=== PATIENT | male | born 1950 | race Caucasian/White ===

== ENCOUNTER → 2020-04-26 13:07 | Outpatient (BNVA) | payer MEDICARE, MEDICAID, SELFPAY | PROVIDERS: PCP Internal Medicine; Visit Provider Internal Medicine | DX: I26.99 Other pulmonary embolism without acute cor pulmonale (principal); Z51.81 Encounter for therapeutic drug level monitoring; Z79.01 Long term (current) use of anticoagulants | CPT/HCPCS: Q3014 ==

== ENCOUNTER → 2020-05-17 15:03 | Outpatient (BNVA) | payer MEDICARE, MEDICAID, SELFPAY | PROVIDERS: PCP Internal Medicine; Visit Provider Internal Medicine | DX: I26.99 Other pulmonary embolism without acute cor pulmonale (principal); Z51.81 Encounter for therapeutic drug level monitoring; Z79.01 Long term (current) use of anticoagulants | CPT/HCPCS: Q3014 ==

== ENCOUNTER → 2020-05-24 15:34 | Outpatient (BNVA) | payer MEDICARE, MEDICAID, SELFPAY | PROVIDERS: PCP Internal Medicine; Visit Provider Internal Medicine | DX: Z76.89 Persons encountering health services in other specified circumstances (principal) ==

== ENCOUNTER → 2020-05-31 12:12 | Outpatient (BNVA) | payer MEDICARE, MEDICAID, SELFPAY | PROVIDERS: PCP Internal Medicine; Visit Provider Internal Medicine | DX: I26.99 Other pulmonary embolism without acute cor pulmonale (principal); Z51.81 Encounter for therapeutic drug level monitoring; Z79.01 Long term (current) use of anticoagulants | CPT/HCPCS: Q3014 ==

== ENCOUNTER 2020-05-31 14:52 | Outpatient (REF) | payer MEDICARE, MEDICAID, SELFPAY ==
[2020-05-31 14:56] LABS: MANUAL DIFF FLAG NO
[2020-05-31 15:11] LABS: Basophils Percent Auto 0.2 % (0-2); Eosinophils Absolute Auto 0.1 X10*3/uL (0.0-0.4); Eosinophils Percent Auto 0.5 % (0-4); Hematocrit 45.4 % (42-52); Hemoglobin 14.6 g/dl (14.0-18.0); Imm Gran Abs Auto 0.14 X10*3/uL (0.00-0.03); Lymphocytes Absolute Auto 1.7 X10*3/uL (1.2-4.9); Lymphocytes Percent Auto 11.5 % (20-40); Mean Corpuscular HGB Conc 32.2 g/dl (31.0-36.0); Mean Corpuscular Hemoglobin 31.4 pg (27.0-33.0); Mean Corpuscular Volume 97.6 fL (80-98); Mean Platelet Volume 11.2 fL (9.4-12.4); Monocytes Absolute Auto 0.6 X10*3/uL (0.1-1.2); Monocytes Percent Auto 4.2 % (2-11); Neutrophils Absolute Auto 12.1 X10*3/uL (2.0-8.3); Neutrophils Percent Auto 82.6 % (45-73); Platelet Count 241 X10*3/uL (160-400); Red Blood Count 4.65 X10*6/uL (4.60-5.80); Red Cell Distribution Width 13.9 % (11.0-16.0); White Blood Count 14.7 X10*3/uL (4.8-10.8)
[2020-05-31 15:35] LABS: Alanine Aminotransferase 36 U/L (0-40); Albumin Level 3.8 g/dL (3.5-5.0); Alkaline Phosphatase 62 U/L (39-117); Aspartate Amino Transferase 29 U/L (5-37); Bilirubin Direct 0.2 mg/dL (0.0-0.5); Bilirubin Total 0.5 mg/dL (0.0-1.0); C Reactive Protein 0.03 mg/dL (< or = 0.50); Total Protein 6.7 g/dL (6.5-8.0)
[2020-05-31 16:15] LABS: Erythrocyte Sedimentation Rate 5 MM/HR (0-15)
== END 2020-05-31 14:53 | disposition home or self-care (01) ==
LOC: HO.LNP 14:52
PROVIDERS: Visit Provider Hospitalist
DX: B02.9 Zoster without complications (principal)
CPT/HCPCS: 36415; 80076; 85025; 85652; 86140

== ENCOUNTER → 2020-06-07 14:17 | Outpatient (BNVA) | payer MEDICARE, MEDICAID, SELFPAY | PROVIDERS: PCP Internal Medicine; Visit Provider Internal Medicine | DX: I26.99 Other pulmonary embolism without acute cor pulmonale (principal); Z51.81 Encounter for therapeutic drug level monitoring; Z79.01 Long term (current) use of anticoagulants | CPT/HCPCS: Q3014 ==

== ENCOUNTER → 2020-06-12 14:51 | Outpatient (BNVA) | payer MEDICARE, MEDICAID, SELFPAY | PROVIDERS: PCP Internal Medicine; Referring Provider Internal Medicine; Visit Provider Internal Medicine | DX: I26.99 Other pulmonary embolism without acute cor pulmonale (principal); Z51.81 Encounter for therapeutic drug level monitoring; Z79.01 Long term (current) use of anticoagulants | CPT/HCPCS: Q3014 ==

== ENCOUNTER → 2020-06-19 11:59 | Outpatient (BNVA) | payer MEDICARE, MEDICAID, SELFPAY | PROVIDERS: PCP Internal Medicine; Visit Provider Internal Medicine | DX: I26.99 Other pulmonary embolism without acute cor pulmonale (principal); Z51.81 Encounter for therapeutic drug level monitoring; Z79.01 Long term (current) use of anticoagulants | CPT/HCPCS: Q3014 ==

== ENCOUNTER → 2020-06-25 16:08 | Outpatient (BNVA) | payer MEDICARE, MEDICAID, SELFPAY | PROVIDERS: PCP Internal Medicine; Visit Provider Internal Medicine | DX: Z76.89 Persons encountering health services in other specified circumstances (principal) ==

== ENCOUNTER → 2020-07-02 12:11 | Outpatient (BNVA) | payer MEDICARE, MEDICAID, SELFPAY | PROVIDERS: PCP Internal Medicine; Visit Provider Internal Medicine | DX: I26.99 Other pulmonary embolism without acute cor pulmonale (principal); Z51.81 Encounter for therapeutic drug level monitoring; Z79.01 Long term (current) use of anticoagulants | CPT/HCPCS: Q3014 ==

== ENCOUNTER → 2020-07-16 15:58 | Outpatient (BNVA) | payer MEDICARE, MEDICAID, SELFPAY | PROVIDERS: PCP Internal Medicine; Visit Provider Internal Medicine | DX: I26.99 Other pulmonary embolism without acute cor pulmonale (principal); Z51.81 Encounter for therapeutic drug level monitoring; Z79.01 Long term (current) use of anticoagulants | CPT/HCPCS: Q3014 ==

== ENCOUNTER → 2020-07-25 12:01 | Outpatient (BNVA) | payer MEDICARE, MEDICAID, SELFPAY | PROVIDERS: PCP Internal Medicine; Visit Provider Internal Medicine | DX: I26.99 Other pulmonary embolism without acute cor pulmonale (principal); Z79.01 Long term (current) use of anticoagulants; Z51.81 Encounter for therapeutic drug level monitoring | CPT/HCPCS: Q3014 ==

== ENCOUNTER → 2020-07-30 14:55 | Outpatient (REF) | payer MEDICARE, MEDICAID, SELFPAY ==
--- NOTE | 2020-07-30 15:00 | CA_ITS ---
Transthoracic Echocardiogram Patient (Last, First, Middle): Misbah Iverson M Gender: Male Date of : 1950 Age: 69 Procedure Date: 07/30/2020 Procedure Type: Transthoracic Echocardiogram Location: OP Height: 180.34 cm Weight: 163.3 kg BSA: 2.71 m2 Heart Rate: bpm BP: 130 / 58 mmHg Professor Of Musicology: ANNIE Referring MD: Khris Lewis MD Master Sheet Clerk: Khris Lewis MD Symptoms: I48.0 PAF Study Quality: Technically Difficult ECG Rhythm: Undetermined Conclusions: - 1. Technically difficult study due to body habitus 2. Moderately reduced LV systolic function on limited views 3. At least moderately dilated left atrium 4. Limited evaluation and visualization of cardiac valves with normal cardiac valvular Doppler 5. Moderately dilated ascending aorta Findings Left Ventricle The left ventricle was not well visualized. The visually estimated ejection fraction is between 35-40%. Regional wall motion abnormalities can not be excluded due to suboptimal endocardial definition. Diastolic function is indeterminate on the basis of available data. Right Ventricle The right ventricle was not well visualized. Atria The left atrium is moderately dilated. Interatrial shunt cannot be excluded. The right atrium was not well visualized. Aortic Valve The aortic valve was not well visualized. There is no aortic valve stenosis. There is no aortic valve regurgitation. Mitral Valve The mitral valve was not well visualized. There is mild mitral annular calcification. There is trace mitral valve regurgitation. There is no mitral valve stenosis. Pulmonic Valve The pulmonic valve was not well visualized. Tricuspid Valve The tricuspid valve was not well visualized. Tricuspid regurgitation envelope is inadequate for calculation of right ventricular systolic pressure. Great Vessels The pulmonary artery was not well visualized. There is moderate dilatation of the ascending aorta measuring 4.40 cm. Venous The inferior vena cava was not well visualized. Pericardium/Pleural The pericardium was not well visualized. Prior Study Comparison Changes noted compared to prior study dated: 06/27/2019. LV systolic function has reduced Measurements 2D Linear Measurements Ao Root: 3.50 2.1-3.5 cm LVOT Diam: 2.40 3.0+(-)1.3 cm 2D Systolic Function EF 4C: 30.70 >55% EF 2C: 39.50 >55% EF BiP: 36.40 >55% Aortic Valve AoV Pk Tiburcio: 1.25 AoV Mn Tiburcio: 0.87 AoV VTI: 0.23 AoV Pk Grad: 6.00 Aov Mn Grad: 3.00 RAMONA Cont.VTI: 3.35 LVOT LVOT Pk Tiburcio: 0.82 LVOT Mn Tiburcio: 0.50 LVOT VTI: 0.17 LVOT Pk Grad: 3.00 LVOT Mn Grad: 1.00 LVOT Diam: 2.40 LVOT Area: 4.52 Great Vessels Aorta Ao Root-2D: 3.50 2.0-3.7 cm Ao Asc: 4.40 2.1-3.4 cm Updated in Other Vendor System with Status of Final Khris Lewis MD electronically signed on 07/31/2020 1:22:51 PM with status of Final
== END ==
LOC: HO.CARD 14:55
PROVIDERS: PCP Internal Medicine; Visit Provider Internal Medicine Cardiovascular Disease
DX: I48.0 Paroxysmal atrial fibrillation (principal)
CPT/HCPCS: 93306

== ENCOUNTER → 2020-08-01 12:02 | Outpatient (BNVA) | payer MEDICARE, MEDICAID, SELFPAY | PROVIDERS: PCP Internal Medicine; Visit Provider Internal Medicine | DX: I26.99 Other pulmonary embolism without acute cor pulmonale (principal); Z51.81 Encounter for therapeutic drug level monitoring; Z79.01 Long term (current) use of anticoagulants | CPT/HCPCS: Q3014 ==

== ENCOUNTER → 2020-08-08 12:04 | Outpatient (BNVA) | payer MEDICARE, MEDICAID, SELFPAY | PROVIDERS: PCP Internal Medicine; Visit Provider Internal Medicine | DX: I26.99 Other pulmonary embolism without acute cor pulmonale (principal); Z51.81 Encounter for therapeutic drug level monitoring; Z79.01 Long term (current) use of anticoagulants | CPT/HCPCS: Q3014 ==

== ENCOUNTER → 2020-08-13 14:15 | Outpatient (BNVA) | payer MEDICARE, MEDICAID, SELFPAY | PROVIDERS: PCP Internal Medicine; Visit Provider Internal Medicine Cardiovascular Disease | DX: R06.02 Shortness of breath (principal); I42.9 Cardiomyopathy, unspecified; I48.19 Other persistent atrial fibrillation; E66.01 Morbid (severe) obesity due to excess calories | CPT/HCPCS: 93005; 99212 ==

== ENCOUNTER → 2020-08-15 12:02 | Outpatient (BNVA) | payer MEDICARE, MEDICAID, SELFPAY | PROVIDERS: PCP Internal Medicine; Visit Provider Internal Medicine | DX: I26.99 Other pulmonary embolism without acute cor pulmonale (principal); Z51.81 Encounter for therapeutic drug level monitoring; Z79.01 Long term (current) use of anticoagulants | CPT/HCPCS: Q3014 ==

== ENCOUNTER → 2020-08-22 11:02 | Outpatient (BNVA) | payer MEDICARE, MEDICAID, SELFPAY | PROVIDERS: PCP Internal Medicine; Visit Provider Internal Medicine | DX: I26.99 Other pulmonary embolism without acute cor pulmonale (principal); Z51.81 Encounter for therapeutic drug level monitoring; Z79.01 Long term (current) use of anticoagulants | CPT/HCPCS: Q3014 ==

== ENCOUNTER 2020-08-23 10:30 | Day surgery (SDC) | payer MEDICARE, MEDICAID, SELFPAY ==
--- NOTE | 2020-08-21 15:05 | HO.ANESPROP2 ---
Documented by User: Criss Lauren 08/21/20 15:14 HPI - Anesthesia Eval Consult details Narrative: 70yo M for Cardioversion PMFSH Past Medical History Medical History (Updated 08/21/20 @ 15:11 by Criss Lauren) CAD (coronary artery disease) Cardiomyopathy COPD (chronic obstructive pulmonary disease) Current use of anticoagulant therapy Diabetes HLD (hyperlipidemia) HTN (hypertension) Morbid obesity Obstructive sleep apnea Persistent atrial fibrillation Family History Family History Father HTN (hypertension) Diabetes mellitus Cardiac disease Bone cancer Mother HTN (hypertension) Lung cancer Surgical History Surgical History History of ankle surgery History of knee surgery Social History Social History Alcohol intake: never Smoking Status: Former smoker Use of substances other than those prescribed or required for medical reasons: No Advance Directives: No Advance Directives Information Provided: Yes Meds Allergies Allergy/AdvReac Type Severity Reaction Status Date / Time iodine [IODINE] Allergy Unknown HIVES, Verified 07/25/20 12:02 bloating latex [LATEX] Allergy Unknown HIVES Verified 07/25/20 12:02 shellfish Allergy Unknown anaphylaxis Verified 07/25/20 12:02 shellfish derived Allergy Unknown ANAPHYLAXIS Verified 07/25/20 12:02 [SHELLFISH DERIVED] Home Medications Medication Instructions Recorded Confirmed Type warfarin 4 mg tablet 4 mg PO DAILY 04/26/20 08/22/20 History amiodarone 200 mg tablet 200 mg PO DAILY 06/11/20 08/22/20 History atorvastatin 10 mg tablet 10 mg PO DAILY 06/11/20 08/22/20 History carvedilol 12.5 mg tablet 12.5 mg PO BID 06/11/20 08/22/20 History glipizide 5 mg tablet 2.5 mg PO DAILY tab 08/13/20 08/22/20 History lorazepam 0.5 mg tablet 1 mg PO DAILY PRN tab 08/13/20 08/22/20 History sertraline 25 mg tablet 100 mg PO DAILY tab 08/13/20 08/22/20 History glipizide 2.5 mg tablet, extended 2.5 mg PO DAILY 08/15/20 08/22/20 History release 24 hr lorazepam 1 mg tablet 1 mg PO BID PRN 08/15/20 08/22/20 History sertraline 100 mg tablet 100 mg PO DAILY 08/15/20 08/22/20 History Big [place] 3 Fish Oil 08/23/20 History acetaminophen 650 mg PO PRN 08/23/20 History multivitamin 08/23/20 History Exam Exam Date and Time: August 21, 2020 1505 Pertinent Lab Results Pertinent Lab Results: Laboratory Tests 02/23/20 05/31/20 06:24 13:00 WBC 14.7 H Hgb 14.6 Hct 45.4 Plt Count 241 Sodium 136 Potassium 3.8 D Chloride 105 BUN 18 H Creatinine 0.85 Narrative Narrative: Echo 07/30/20 Conclusions: - 1. Technically difficult study due to body habitus 2. Moderately reduced LV systolic function on limited views, EF 35-40% 3. At least moderately dilated left atrium 4. Limited evaluation and visualization of cardiac valves with normal cardiac valvular Doppler 5. Moderately dilated ascending aorta EKG afib @ 83 low volt QRS ? septal infarct Assessment and Plan Assessment Anesthesia Assessment: Chart Reviewed Documented by User: An Rivera 08/23/20 11:16 [facility] Past Medical History Medical History (Updated 08/21/20 @ 15:11 by Criss Lauern) CAD (coronary artery disease) Cardiomyopathy COPD (chronic obstructive pulmonary disease) Current use of anticoagulant therapy Diabetes HLD (hyperlipidemia) HTN (hypertension) Morbid obesity Obstructive sleep apnea Persistent atrial fibrillation Family History Family History Father HTN (hypertension) Diabetes mellitus Cardiac disease Bone cancer Mother HTN (hypertension) Lung cancer Surgical History Surgical History History of ankle surgery History of knee surgery Social History Social History Alcohol intake: never Smoking Status: Former smoker Use of substances other than those prescribed or required for medical reasons: No Advance Directives: No Advance Directives Information Provided: Yes Meds Allergies Allergy/AdvReac Type Severity Reaction Status Date / Time iodine [IODINE] Allergy Unknown HIVES, Verified 07/25/20 12:02 bloating latex [LATEX] Allergy Unknown HIVES Verified 07/25/20 12:02 shellfish Allergy Unknown anaphylaxis Verified 07/25/20 12:02 shellfish derived Allergy Unknown ANAPHYLAXIS Verified 07/25/20 12:02 [SHELLFISH DERIVED] Home Medications Medication Instructions Recorded Confirmed Type warfarin 4 mg tablet 4 mg PO DAILY 04/26/20 08/22/20 History amiodarone 200 mg tablet 200 mg PO DAILY 06/11/20 08/22/20 History atorvastatin 10 mg tablet 10 mg PO DAILY 06/11/20 08/22/20 History carvedilol 12.5 mg tablet 12.5 mg PO BID 06/11/20 08/22/20 History glipizide 5 mg tablet 2.5 mg PO DAILY tab 08/13/20 08/22/20 History lorazepam 0.5 mg tablet 1 mg PO DAILY PRN tab 08/13/20 08/22/20 History sertraline 25 mg tablet 100 mg PO DAILY tab 08/13/20 08/22/20 History glipizide 2.5 mg tablet, extended 2.5 mg PO DAILY 08/15/20 08/22/20 History release 24 hr lorazepam 1 mg tablet 1 mg PO BID PRN 08/15/20 08/22/20 History sertraline 100 mg tablet 100 mg PO DAILY 08/15/20 08/22/20 History Big Bar 3 Fish Oil 08/23/20 History acetaminophen 650 mg PO PRN 08/23/20 History multivitamin 08/23/20 History Exam Airway Mallampati Class: IV TM Dist: >3cm Neck ROM: Full Heart: irreg Lungs: CtA BL Assessment and Plan Assessment Anesthesia Assessment: Anesthesia Plan Discussed and Chart Reviewed Final Anesthetic Review NPO: Yes (Sip med with meds) ASA Class: III Final Preanesthetic Review: Meds/Allgs Chart Reviewed and Consent Obtained/Reviewed Patient Risk: Intermediate Procedure Risk: Intermediate Anesthetic Plan Anesthetic Plan: MAC: Disposition: Standard PACU
[2020-08-23] VITALS (7 sets, daily range): BP systolic 99–116; BP diastolic 63–79; PULSE 70–87; RESP 16–22; TEMP 36.4–37.3; O2SAT 96–99; BMI 50.2
--- NOTE | 2020-08-23 | ECG_ITS ---
Test Reason : POST CARDIOVERSION Blood Pressure : / mmHG Vent. Rate : 078 BPM Atrial Rate : 153 BPM P-R Int : 000 ms QRS Dur : 100 ms QT Int : 440 ms P-R-T Axes : 000 -35 027 degrees QTc Int : 501 ms Atrial fibrillation Left axis deviation Prolonged QT Abnormal ECG When compared with ECG of 22-FEB-2020 22:52, Atrial fibrillation has replaced Sinus rhythm QT has lengthened Referred By: Lelo Rincon Electronically Signed By:LELO RINCON
[2020-08-23 11:06] LABS: Glucose, Whole Blood 134 mg/dL (60-115)
[2020-08-23 11:15] LABS: INTERNATIONAL NORM RATIO 1.8 (0.9-1.1); Prothrombin Time 21.3 SEC (10.8-13.0)
--- NOTE | 2020-08-23 11:35 | PC.NURSE ---
JULIO RINCON AND TOLD HIM THE PT/INR RESULTS INR1.8 AND PT 21.3 MD WOULD LIKE TO HAVE LOVENOX GIVEN PRIOR TO HIS PROCEDURE. PATIENT ALSO STATED HE TAKES HIS COUMADIN REGULARLY AND TOOK HIS DOSE LAST NIGHT.
[2020-08-23] MEDS: Lactated Ringers 1,000 ML 100 ML IVCONT (11:40)
[2020-08-23] MEDS: Enoxaparin Sodium 150 MG/ML SYRINGE SUBCUT (11:48)
--- NOTE | 2020-08-23 12:10 | MHC.SHP ---
Pre-Procedural Eval Section B Chief Complaint: a-fib Allergies: Allergies Allergy/AdvReac Type Severity Reaction Status Date / Time iodine [IODINE] Allergy Unknown HIVES, Verified 07/25/20 12:02 bloating latex [LATEX] Allergy Unknown HIVES Verified 07/25/20 12:02 shellfish Allergy Unknown anaphylaxis Verified 07/25/20 12:02 shellfish derived Allergy Unknown ANAPHYLAXIS Verified 07/25/20 12:02 [SHELLFISH DERIVED] Plan I have reviewed the history and physical and performed a pertinent physical examination on my patient. No changes have occurred unless specified.
--- NOTE | 2020-08-23 13:03 | P.PNCAR_ITS ---
Cardioversion Procedure Note Cardioversion Date of Procedure: 08/23/2020. Ordering Provider: Dr. Lewis Performing Provider: Dr. Zayas Indication for Procedure: Atrial fibrillation/cardiomyopathy Pre-Op Diagnosis: Atrial fibrillation Post-Op Diagnosis: Atrial fibrillation Performed with Transesophageal Echo: No History: Atrial fibrillation/cardiomyopathy for planned cardioversion. Consent: Verbal and Written consent was obtained from the patient before starting. Procedure: After informed consent is obtained patient was taken to the PACU. He was positioned appropriately. Cardioversion pads were placed in the anterior- posterior position. After he was under anesthesia, 150 joules of synchronized shock was administered. He was still in atrial fibrillation. The procedure was re-attempted with 200 joules of synchronized shock. He continued to be in atrial fibrillation. No further shocks were given. Complications: None. Impression: Cardioversion not successful. Patient remained in atrial fibrillation postprocedure. Recommendations: To be followed up in the office for further plans. Patient's INR was 1.8 preprocedure. Hence he received Lovenox. Otherwise, he has had recent therapeutic INRs for several weeks. May take Lovenox for the weekend and recheck INR on Wednesday. Scripts have been sent. Also discussed with patient.
== END 2020-08-23 14:09 | disposition home or self-care (01) ==
PROVIDERS: Nurse Practitioner; PCP Internal Medicine; Visit Provider Internal Medicine
PROC: 5A2204Z Restoration of Cardiac Rhythm, Single (ICD-10-PCS; principal; 2020-08-23 12:00)
DX: I48.19 Other persistent atrial fibrillation (principal); Z79.01 Long term (current) use of anticoagulants; I42.9 Cardiomyopathy, unspecified; G47.33 Obstructive sleep apnea (adult) (pediatric); I10 Essential (primary) hypertension; E11.9 Type 2 diabetes mellitus without complications; J44.9 Chronic obstructive pulmonary disease, unspecified; E66.01 Morbid (severe) obesity due to excess calories; Z68.43 Body mass index [BMI] 50.0-59.9, adult
CPT/HCPCS: 36415; 82947; 85610; 92960; 93005; J0330; J1650; J2250

== ENCOUNTER → 2020-08-26 12:02 | Outpatient (BNVA) | payer MEDICARE, MEDICAID, SELFPAY | PROVIDERS: PCP Internal Medicine; Visit Provider Internal Medicine | DX: I26.99 Other pulmonary embolism without acute cor pulmonale (principal); Z51.81 Encounter for therapeutic drug level monitoring; Z79.01 Long term (current) use of anticoagulants | CPT/HCPCS: Q3014 ==

== ENCOUNTER → 2020-08-29 11:32 | Outpatient (BNVA) | payer MEDICARE, MEDICAID, SELFPAY | PROVIDERS: PCP Internal Medicine; Visit Provider Internal Medicine | DX: I26.99 Other pulmonary embolism without acute cor pulmonale (principal); Z51.81 Encounter for therapeutic drug level monitoring; Z79.01 Long term (current) use of anticoagulants | CPT/HCPCS: Q3014 ==

== ENCOUNTER → 2020-09-03 14:17 | Outpatient (BNVA) | payer MEDICARE, MEDICAID, SELFPAY | PROVIDERS: PCP Internal Medicine; Visit Provider Internal Medicine Cardiovascular Disease | DX: I48.19 Other persistent atrial fibrillation (principal); I42.9 Cardiomyopathy, unspecified | CPT/HCPCS: 93005; 99212 ==

== ENCOUNTER → 2020-09-05 10:56 | Outpatient (BNVA) | payer MEDICARE, MEDICAID, SELFPAY | PROVIDERS: PCP Internal Medicine; Visit Provider Internal Medicine | DX: I26.99 Other pulmonary embolism without acute cor pulmonale (principal); Z51.81 Encounter for therapeutic drug level monitoring; Z79.01 Long term (current) use of anticoagulants | CPT/HCPCS: Q3014 ==

== ENCOUNTER → 2020-09-12 10:02 | Outpatient (BNVA) | payer MEDICARE, MEDICAID, SELFPAY | PROVIDERS: PCP Internal Medicine; Visit Provider Internal Medicine | DX: I26.99 Other pulmonary embolism without acute cor pulmonale (principal); Z51.81 Encounter for therapeutic drug level monitoring; Z79.01 Long term (current) use of anticoagulants | CPT/HCPCS: Q3014 ==

== ENCOUNTER → 2020-09-19 10:47 | Outpatient (BNVA) | payer MEDICARE, MEDICAID, SELFPAY | PROVIDERS: PCP Internal Medicine; Visit Provider Internal Medicine | DX: I26.99 Other pulmonary embolism without acute cor pulmonale (principal); Z51.81 Encounter for therapeutic drug level monitoring; Z79.01 Long term (current) use of anticoagulants | CPT/HCPCS: Q3014 ==

== ENCOUNTER → 2020-09-23 12:29 | Outpatient (BNVA) | payer MEDICARE, MEDICAID, SELFPAY | PROVIDERS: PCP Internal Medicine; Visit Provider Internal Medicine | DX: I26.99 Other pulmonary embolism without acute cor pulmonale (principal); Z51.81 Encounter for therapeutic drug level monitoring; Z79.01 Long term (current) use of anticoagulants | CPT/HCPCS: Q3014 ==

== ENCOUNTER → 2020-09-30 13:52 | Outpatient (BNVA) | payer MEDICARE, MEDICAID, SELFPAY | PROVIDERS: PCP Internal Medicine; Visit Provider Internal Medicine | DX: I26.99 Other pulmonary embolism without acute cor pulmonale (principal); Z51.81 Encounter for therapeutic drug level monitoring; Z79.01 Long term (current) use of anticoagulants | CPT/HCPCS: 85610; 99211; Q3014 ==

== ENCOUNTER → 2020-10-01 14:41 | Outpatient (BNVA) | payer MEDICARE, MEDICAID, SELFPAY | PROVIDERS: PCP Internal Medicine; Visit Provider Internal Medicine Cardiovascular Disease | DX: I48.19 Other persistent atrial fibrillation (principal); I42.9 Cardiomyopathy, unspecified; Z79.899 Other long term (current) drug therapy | CPT/HCPCS: 93005; 99212 ==

== ENCOUNTER → 2020-10-07 10:40 | Outpatient (BNVA) | payer MEDICARE, MEDICAID, SELFPAY | PROVIDERS: PCP Internal Medicine; Visit Provider Internal Medicine | DX: I26.99 Other pulmonary embolism without acute cor pulmonale (principal); Z51.81 Encounter for therapeutic drug level monitoring; Z79.01 Long term (current) use of anticoagulants | CPT/HCPCS: Q3014 ==

== ENCOUNTER → 2020-10-14 14:14 | Outpatient (BNVA) | payer MEDICARE, MEDICAID, SELFPAY | PROVIDERS: PCP Internal Medicine; Visit Provider Internal Medicine | DX: I26.99 Other pulmonary embolism without acute cor pulmonale (principal); Z51.81 Encounter for therapeutic drug level monitoring; Z79.01 Long term (current) use of anticoagulants | CPT/HCPCS: Q3014 ==

== ENCOUNTER → 2020-10-21 16:42 | Outpatient (BNVA) | payer MEDICARE, MEDICAID, SELFPAY | PROVIDERS: PCP Internal Medicine; Visit Provider Internal Medicine | DX: I26.99 Other pulmonary embolism without acute cor pulmonale (principal); Z79.01 Long term (current) use of anticoagulants; Z51.81 Encounter for therapeutic drug level monitoring | CPT/HCPCS: Q3014 ==

== ENCOUNTER 2020-10-22 11:21 | Emergency (ER) | payer MEDICARE, MEDICAID, SELFPAY ==
[2020-10-22] VITALS (7 sets, daily range): BP systolic 109–143; BP diastolic 68–91; PULSE 76–114; RESP 16–28; TEMP 36.6–36.7; O2SAT 94–96; BMI 52.9
--- NOTE | ~2020-10-22 | XR_ITS ---
EXAMINATION: XR CHEST CLINICAL INFORMATION: Chronic shortness of breath COMPARISON: Previous chest x-ray most recent August 2019 and CTA of the chest February 2017 TECHNIQUE: Frontal view of the chest was obtained. FINDINGS: The cardiac silhouette is enlarged but stable. Hilar and mediastinal contours are unremarkable. There is increased density at the right cardiophrenic angle. This is similar to previous exam and when compared with CT scan likely represents prominent epicardial fat. The lungs are otherwise clear. There is no pleural effusion or pneumothorax. Visualized bony structures are unremarkable. XR/XR chest 1V IMPRESSION: No evidence for acute disease in the chest.
--- NOTE | ~2020-10-22 | CT_ITS ---
EXAMINATION: CT ABDOMEN AND PELVIS WITH CONTRAST CLINICAL INFORMATION: 70-year-old male with abdominal pain, nausea, vomiting and diarrhea. COMPARISON: CT abdomen pelvis March 13, 2017 TECHNIQUE: Multidetector volumetric images were obtained from the superior aspect of the liver through the pubic symphysis following administration 100 mL of Omnipaque 350 intravenous contrast. Sagittal and coronal reformatted images were obtained on the technologist's workstation. Examination limited secondary to patient body habitus. The entire stomach is not included within the [id number]. This CT examination was performed using dose optimization techniques as appropriate, variously including the following: *Automated exposure control *Adjustment of mA and/or kV according to patient size (this includes techniques or standardized protocols for targeted exams where dose is matched to indication/reason for exam; i.e. extremities or head) *Use of iterative reconstruction technique DLP: 1878 mGy-cm FINDINGS: Visualized lung bases demonstrate mild dependent atelectasis. There is mild posterior pleural thickening again noted. The liver is mildly enlarged and demonstrates diffusely decreased attenuation. The gallbladder is normal in appearance. Mild fatty atrophy of the pancreas. The spleen and adrenal glands are unremarkable. Symmetrically sized kidneys. Renal enhancement is symmetric. No hydronephrosis of either kidney. Surgical changes of the stomach. Visualized loops of small and large bowel are normal in caliber. Mild colonic diverticulosis without CT evidence to suggest active diverticulitis. Normal appendix. Umbilical and supraumbilical fat-containing hernia. Nonaneurysmal abdominal aorta which demonstrates mild atherosclerotic disease. No retroperitoneal lymphadenopathy. Previously visualized mildly prominent periportal lymph nodes are stable. The bladder is relatively decompressed but unremarkable. The prostate gland is not enlarged. No gross free pelvic fluid. No inguinal lymphadenopathy. Moderate diffuse degenerative changes of the spine. CT/CT abdomen pelvis w con IMPRESSION: -No CT evidence for acute abnormality within the abdomen or pelvis. -Hepatic steatosis. -Umbilical and paraumbilical fat-containing hernia. -Mild colonic diverticulosis.
--- NOTE | 2020-10-22 13:39 | ECG_ITS ---
Test Reason : NAUSEA Blood Pressure : / mmHG Vent. Rate : 091 BPM Atrial Rate : 110 BPM P-R Int : 000 ms QRS Dur : 092 ms QT Int : 398 ms P-R-T Axes : 000 -37 -26 degrees QTc Int : 489 ms Atrial fibrillation Left axis deviation Possible Anterior infarct , age undetermined Abnormal ECG When compared with ECG of 23-AUG-2020 12:29, Borderline criteria for Anterior infarct are now Present Nonspecific T wave abnormality, worse in Inferior leads Referred By: Darby White Electronically Signed By:ELIE LAURENT MD
--- NOTE | 2020-10-22 13:49 | ED_ITS ---
HPI - Nausea/Vomiting/Diarrhea General Chief complaint: Nausea/Vomiting/Diarrhea Stated complaint: vomiting, diarrhea Time Seen by Provider: 10/22/20 12:06 Source: patient Mode of arrival: ambulatory History of Present Illness HPI Narrative: 70-year-old male with a past medical history of CAD, cardiomyopathy, AFib on Coumadin, COPD, diabetes, hyperlipidemia, hypertension, morbid obesity, sleep apnea on CPAP, to the ED complaining of diffuse abdominal pain, nausea, vomiting, and diarrhea x4 days. Reports dark/black stool, does report taking Pepto-Bismol however dark stools started prior. Was sent to ED by PCP for concern of dehydration. Denies fever, chills, recent antibiotic use, recent travel, suspicious food intake, sick contacts, constipation, dysuria/hematuria, new or worsening CP/SOB, new or worsening LE edema MD elicited complaint: nausea, vomiting, diarrhea and abdominal pain Related Data Home Medications Medication Instructions Recorded Confirmed amiodarone 200 mg tablet 200 mg PO DAILY 06/11/20 10/22/20 sertraline 100 mg tablet 100 mg PO DAILY 08/15/20 10/22/20 tizanidine 4 mg tablet 4 mg PO BEDTIME PRN 08/29/20 10/22/20 acetaminophen 1,000 mg PO BID 10/22/20 10/22/20 atorvastatin 10 mg PO BEDTIME 10/22/20 10/22/20 docosahexaenoic acid-epa [Fish Oil 1 cap PO DAILY 10/22/20 10/22/20 (with DHA-EPA)] lorazepam 2 mg PO BEDTIME 10/22/20 10/22/20 multivitamin 1 tab PO DAILY 10/22/20 10/22/20 Previous Rx's Medication Instructions Recorded lisinopril 10 mg tablet 10 mg PO DAILY #90 tab 06/19/20 omeprazole 20 mg capsule,delayed 20 mg PO DAILY #90 cap 08/28/20 release furosemide 20 mg tablet 20 mg PO DAILY #50 tab 09/03/20 glipizide 2.5 mg tablet, extended 2.5 mg PO DAILY #90 tab 09/09/20 release 24 hr carvedilol 25 mg tablet 25 mg PO BID 90 Days #180 tab 09/10/20 warfarin 4 mg tablet 4 mg PO DAILY 90 Days #90 tab 09/18/20 Allergies Allergy/AdvReac Type Severity Reaction Status Date / Time iodine [IODINE] Allergy Unknown HIVES, Verified 10/07/20 10:42 bloating latex [LATEX] Allergy Unknown HIVES Verified 10/07/20 10:42 shellfish derived Allergy Unknown ANAPHYLAXIS Verified 10/07/20 10:42 [SHELLFISH DERIVED] Review of Systems Review of Systems: Constitutional: No Fever, No Chills, No Fatigue, No Malaise Cardiovascular: No Chest Pain, +chronic SOB, No Dyspnea on Exertion, + Orthopnea, No Edema, No Palpitations Respiratory: No Cough, No Dyspnea Gastrointestinal: + Nausea, + Vomiting, + Diarrhea, No Constipation, + Abdominal pain, +black stool, No hematochezia Genitourinary: No irregular bleeding, No Dysuria, No Urinary Frequency, No Hematuria, +Flank Pain Musculoskeletal: No joint pain, No Myalgias, No Joint Swelling Skin: No Skin Lesions, No rash Neuro: No Weakness, No Numbness, No Headache Yes all other systems are reviewed and are negative [facility] Past Medical History Attestation statement: The following information was validated with the patient. Medical History CAD (coronary artery disease) Cardiomyopathy COPD (chronic obstructive pulmonary disease) Current use of anticoagulant therapy Diabetes HLD (hyperlipidemia) HTN (hypertension) Morbid obesity Obstructive sleep apnea Persistent atrial fibrillation Surgical History History of ankle surgery History of knee surgery Family History Family History Father HTN (hypertension) Diabetes mellitus Cardiac disease Bone cancer Mother HTN (hypertension) Lung cancer Social History Social History Alcohol intake: never Smoking Status: Former smoker Advance Directives: No Advance Directives Information Provided: No Physical Exam Vital Signs: Vital Signs: Last Vital Signs Temp 97.9 F 10/22/20 15:11 Pulse 89 10/22/20 16:11 Resp 16 10/22/20 16:11 BP 131/68 10/22/20 16:11 Pulse Ox 95 10/22/20 16:11 Body Mass Index 52.9 Const: General: cooperative and healthy appearing Orientation/consciou sness: patient oriented x3 Limitations: no limitations HENMT: Head: Yes normal to inspection Ears: hearing grossly normal bilaterally General nose exam: Normal external nose present Face and sinus: Yes normal facial exam Eyes: General: appearance normal, both eyes and all related structures EOM: EOMs intact bilaterally Neck: Neck: Yes normal visual inspection Resp: Effort & Inspection: normal respiratory effort Auscultation: clear to auscultation bilaterally, no rales, no rhonchi and no wheezes Cardio: Rate: regular rate Heart sounds: S1 normal heart sound present and S2 normal heart sound present GI: Other: Dark stool noted on rectal with appreciable external hemorrhoids Inspection: Yes normal to inspection Palpation (GI): Soft to palpation, Tenderness to palpation present (GI) in the RLQ and periumbilically, no guarding, not rigid and Hernia present umbilical (Reducible) Rectal Exam - Male: Yes External hemorrhoid(s) present : General: Yes CVA tenderness on the right Skin: Rashes: no rashes Wounds: no wounds Neuro: General: patient oriented x3 Gait exam (Neuro): Normal gait present Extrem: General: Yes normal to inspection and Yes no pedal edema Course Course Course Narrative: -1500--no leukocytosis, H/H stable, INR 2.9, troponin mildly elevated 7.6 > will obtain 3 hour repeat. Labs otherwise unremarkable -lactic acid negative, occult stool positive XR chest 1V IMPRESSION: No evidence for acute disease in the chest CT abdomen pelvis w con IMPRESSION: -No CT evidence for acute abnormality within the abdomen or pelvis. -Hepatic steatosis. -Umbilical and paraumbilical fat-containing hernia. -Mild colonic diverticulosis >> patient has not had any episodes of diarrhea or emesis since ED arrival. -repeat troponin without 50% increase, ME unlikely, orthostatic vital signs negative, and repeat H&H stable Results discussed with patient including worrisome signs and symptoms and very strict return precautions. Instructed patient to stop taking Pepto-Bismol, keep a close eye on his stools, & follow-up closely with GI. He verbalized understanding of feel safe for discharge home MDM - Nausea/Vomiting/Diarrhea MDM Narrative Medical decision making narrative: 70-year-old male with a past medical history of CAD, cardiomyopathy, AFib on Coumadin, COPD, diabetes, hyperlipidemia, hypertension, morbid obesity, sleep apnea on CPAP, to the ED complaining of diffuse abdominal pain, nausea, vomiting, and diarrhea x4 days. On exam tachycardic, tachypneic, morbidly obese, lungs CTA, abdomen soft with RLQ/periumbilical ttp and right CVAT, reducible umbilical hernia. Dark stool noted on rectal. Concern for gastroenteritis/dehydration vs appendicitis vs GI bleed vs renal stone/pyelo vs UTI. Low concern for severe sepsis at this time, vital sign abnormalities likely from dehydration/obesity Plan: EKG, labs, UA, CXR, CT AP, occult stool, reassess Medical Records Attestation: I reviewed the patient's medical records. Lab Data Attestation: I reviewed the patient's lab results. Result diagrams: 10/22/20 17:57 10/22/20 14:21 Labs: Lab Results 10/22/20 10/22/20 10/22/20 Range/Units 14:21 14:21 14:21 WBC 8.4 (4.8-10.8) X10*3/uL RBC 4.44 L (4.60-5.80) X10*6/uL Hgb 13.9 L (14.0-18.0) g/dl Hct 42.8 (42-52) % MCV 96.4 (80-98) fL MCH 31.3 (27.0-33.0) pg MCHC 32.5 (31.0-36.0) g/dl RDW 12.7 (11.0-16.0) % Plt Count 231 (160-400) X10*3/uL MPV 11.2 (9.4-12.4) fL Immature Gran % (Auto) 0.4 (0.0-0.4) % Neut % (Auto) 72.9 (45-73) % Lymph % (Auto) 15.9 L (20-40) % Platte % (Auto) 7.3 (2-11) % Eos % (Auto) 2.8 (0-4) % Baso % (Auto) 0.7 (0-2) % Lymph # (Auto) 1.3 (1.2-4.9) X10*3/uL Platte # (Auto) 0.6 (0.1-1.2) X10*3/uL Eos # (Auto) 0.2 (0.0-0.4) X10*3/uL Baso # (Auto) 0.1 (0.0-0.2) X10*3/uL Abs Immat Gran (auto) 0.03 (0.00-0.03) X10*3/uL Absolute Neuts (auto) 6.1 (2.0-8.3) X10*3/uL Absolute Nucleated RBC 0.000 (0.0-0.012) X10*3/uL Nucleated RBC % (auto) 0.0 (0.0-0.2) /100WBC Smear Tech's Comments PT (10.8-13.0) SEC INR (0.9-1.1) APTT (24.1-38.0) SEC Sodium 145 (135-145) mmol/L Potassium 4.1 (3.3-5.1) mmol/L Chloride 108 (96-108) mmol/L Carbon Dioxide 29 (22-29) mmol/L Anion Gap 12 (12-20) BUN 18 H (9-16) mg/dL Creatinine 0.98 (0.5-1.4) mg/dL Estim Creat Clear Calc 116.4 Estimated GFR > 60 Random Glucose 127 H (60-115) mg/dL Lactic Acid (0.5-2.0) mmol/L Calcium 8.5 (8.4-10.2) mg/dL Magnesium 2.3 (1.6-2.6) mg/dL Total Bilirubin 0.7 (0.0-1.0) mg/dL Direct Bilirubin 0.2 (0.0-0.5) mg/dL AST 29 (5-37) U/L ALT 27 (0-40) U/L Alkaline Phosphatase 60 (39-117) U/L Troponin I High Sens 7.6 (<3.5-35.0) ng/L B-Natriuretic Peptide (<100) pg/mL Total Protein 6.9 (6.5-8.0) g/dL Albumin 4.2 (3.5-5.0) g/dL Lipase (8-78) U/L Stool Occult Blood (NEGATIVE) 10/22/20 10/22/20 10/22/20 Range/Units 14:21 14:21 14:21 WBC (4.8-10.8) X10*3/uL RBC (4.60-5.80) X10*6/uL Hgb (14.0-18.0) g/dl Hct (42-52) % MCV (80-98) fL MCH (27.0-33.0) pg MCHC (31.0-36.0) g/dl RDW (11.0-16.0) % Plt Count (160-400) X10*3/uL MPV (9.4-12.4) fL Immature Gran % (Auto) (0.0-0.4) % Neut % (Auto) (45-73) % Lymph % (Auto) (20-40) % Platte % (Auto) (2-11) % Eos % (Auto) (0-4) % Baso % (Auto) (0-2) % Lymph # (Auto) (1.2-4.9) X10*3/uL Platte # (Auto) (0.1-1.2) X10*3/uL Eos # (Auto) (0.0-0.4) X10*3/uL Baso # (Auto) (0.0-0.2) X10*3/uL Abs Immat Gran (auto) (0.00-0.03) X10*3/uL Absolute Neuts (auto) (2.0-8.3) X10*3/uL Absolute Nucleated RBC (0.0-0.012) X10*3/uL Nucleated RBC % (auto) (0.0-0.2) /100WBC Smear Tech's Comments PT 34.4 H D (10.8-13.0) SEC INR 2.9 H (0.9-1.1) APTT 44.6 H (24.1-38.0) SEC Sodium (135-145) mmol/L Potassium (3.3-5.1) mmol/L Chloride (96-108) mmol/L Carbon Dioxide (22-29) mmol/L Anion Gap (12-20) BUN (9-16) mg/dL Creatinine (0.5-1.4) mg/dL Estim Creat Clear Calc Estimated GFR Random Glucose (60-115) mg/dL Lactic Acid 1.0 (0.5-2.0) mmol/L Calcium (8.4-10.2) mg/dL Magnesium (1.6-2.6) mg/dL Total Bilirubin (0.0-1.0) mg/dL Direct Bilirubin (0.0-0.5) mg/dL AST (5-37) U/L ALT (0-40) U/L Alkaline Phosphatase (39-117) U/L Troponin I High Sens (<3.5-35.0) ng/L B-Natriuretic Peptide 65 (<100) pg/mL Total Protein (6.5-8.0) g/dL Albumin (3.5-5.0) g/dL Lipase (8-78) U/L Stool Occult Blood (NEGATIVE) 10/22/20 10/22/20 10/22/20 Range/Units 14:21 14:21 17:57 WBC (4.8-10.8) X10*3/uL RBC (4.60-5.80) X10*6/uL Hgb (14.0-18.0) g/dl Hct (42-52) % MCV (80-98) fL MCH (27.0-33.0) pg MCHC (31.0-36.0) g/dl RDW (11.0-16.0) % Plt Count (160-400) X10*3/uL MPV (9.4-12.4) fL Immature Gran % (Auto) (0.0-0.4) % Neut % (Auto) (45-73) % Lymph % (Auto) (20-40) % Platte % (Auto) (2-11) % Eos % (Auto) (0-4) % Baso % (Auto) (0-2) % Lymph # (Auto) (1.2-4.9) X10*3/uL Platte # (Auto) (0.1-1.2) X10*3/uL Eos # (Auto) (0.0-0.4) X10*3/uL Baso # (Auto) (0.0-0.2) X10*3/uL Abs Immat Gran (auto) (0.00-0.03) X10*3/uL Absolute Neuts (auto) (2.0-8.3) X10*3/uL Absolute Nucleated RBC (0.0-0.012) X10*3/uL Nucleated RBC % (auto) (0.0-0.2) /100WBC Smear Tech's Comments PT (10.8-13.0) SEC INR (0.9-1.1) APTT (24.1-38.0) SEC Sodium (135-145) mmol/L Potassium (3.3-5.1) mmol/L Chloride (96-108) mmol/L Carbon Dioxide (22-29) mmol/L Anion Gap (12-20) BUN (9-16) mg/dL Creatinine (0.5-1.4) mg/dL Estim Creat Clear Calc Estimated GFR Random Glucose (60-115) mg/dL Lactic Acid (0.5-2.0) mmol/L Calcium (8.4-10.2) mg/dL Magnesium (1.6-2.6) mg/dL Total Bilirubin (0.0-1.0) mg/dL Direct Bilirubin (0.0-0.5) mg/dL AST (5-37) U/L ALT (0-40) U/L Alkaline Phosphatase (39-117) U/L Troponin I High Sens 7.0 (<3.5-35.0) ng/L B-Natriuretic Peptide (<100) pg/mL Total Protein (6.5-8.0) g/dL Albumin (3.5-5.0) g/dL Lipase 70 (8-78) U/L Stool Occult Blood POSITIVE (NEGATIVE) 10/22/20 Range/Units 17:57 WBC 8.6 (4.8-10.8) X10*3/uL RBC 4.60 (4.60-5.80) X10*6/uL Hgb 14.3 (14.0-18.0) g/dl Hct 44.1 (42-52) % MCV 95.9 (80-98) fL MCH 31.1 (27.0-33.0) pg MCHC 32.4 (31.0-36.0) g/dl RDW 12.9 (11.0-16.0) % Plt Count 218 (160-400) X10*3/uL MPV 11.1 (9.4-12.4) fL Immature Gran % (Auto) 0.5 H (0.0-0.4) % Neut % (Auto) 92.6 H (45-73) % Lymph % (Auto) 5.2 L (20-40) % Platte % (Auto) 1.2 L (2-11) % Eos % (Auto) 0.2 (0-4) % Baso % (Auto) 0.3 (0-2) % Lymph # (Auto) 0.5 L (1.2-4.9) X10*3/uL Platte # (Auto) 0.1 (0.1-1.2) X10*3/uL Eos # (Auto) 0.0 (0.0-0.4) X10*3/uL Baso # (Auto) 0.0 (0.0-0.2) X10*3/uL Abs Immat Gran (auto) 0.04 H (0.00-0.03) X10*3/uL Absolute Neuts (auto) 8.0 (2.0-8.3) X10*3/uL Absolute Nucleated RBC 0.000 (0.0-0.012) X10*3/uL Nucleated RBC % (auto) 0.0 (0.0-0.2) /100WBC Smear Tech's Comments VERIFIED PT (10.8-13.0) SEC INR (0.9-1.1) APTT (24.1-38.0) SEC Sodium (135-145) mmol/L Potassium (3.3-5.1) mmol/L Chloride (96-108) mmol/L Carbon Dioxide (22-29) mmol/L Anion Gap (12-20) BUN (9-16) mg/dL Creatinine (0.5-1.4) mg/dL Estim Creat Clear Calc Estimated GFR Random Glucose (60-115) mg/dL Lactic Acid (0.5-2.0) mmol/L Calcium (8.4-10.2) mg/dL Magnesium (1.6-2.6) mg/dL Total Bilirubin (0.0-1.0) mg/dL Direct Bilirubin (0.0-0.5) mg/dL AST (5-37) U/L ALT (0-40) U/L Alkaline Phosphatase (39-117) U/L Troponin I High Sens (<3.5-35.0) ng/L B-Natriuretic Peptide (<100) pg/mL Total Protein (6.5-8.0) g/dL Albumin (3.5-5.0) g/dL Lipase (8-78) U/L Stool Occult Blood (NEGATIVE) ECG Data Attestation: I personally reviewed and interpreted this ECG as follows: ECG interpretation date: 10/22/20 ECG interpretation time: 14:07 Interpretation: EKG AFib with a rate of 91. No STEMI, nonischemic Discharge Plan Discharge Clinical Impression: Occult blood in stools, Nausea, vomiting and diarrhea Patient Disposition: Home, Self-Care Instructions: Melena (ED), Acute Nausea and Vomiting (ED), Acute Diarrhea (ED) Additional Instructions: Your blood work showed blood in your stool, but her blood count was stable Stop taking Pepto-Bismol and keep an eye on your stool, you need to follow-up with the GI doctor soon as possible, IV continue to have dark/black or bloody stools return to the ED immediately This important that you are staying hydrated at home Zofran as antinausea medication, take as needed, if you have persistent or unremitting nausea/vomiting, for diarrhea or unable to tolerate food or liquid return to the ED immediately Prescriptions: No Action lisinopril 10 mg tablet 10 mg PO DAILY Qty: 90 RF: 3 glipizide 2.5 mg tablet extended release 24hr 2.5 mg PO DAILY Qty: 90 RF: 3 carvedilol [Coreg] 25 mg tablet 25 mg PO BID 90 Days Qty: 180 RF: 1 warfarin 4 mg tablet 4 mg PO DAILY 90 Days Qty: 90 RF: 0 lorazepam 1 mg tablet 2 mg PO BEDTIME RF: 0 multivitamin Tablet 1 tab PO DAILY RF: 0 acetaminophen 500 mg Tablet 1,000 mg PO BID RF: 0 atorvastatin 10 mg tablet 10 mg PO BEDTIME RF: 0 Fish Oil (with DHA-EPA) Capsule 1 cap PO DAILY RF: 0 omeprazole 20 mg capsule,delayed release(DR/EC) 20 mg PO DAILY Qty: 90 RF: 3 amiodarone 200 mg tablet 200 mg PO DAILY RF: 0 furosemide [Lasix] 20 mg tablet 20 mg PO DAILY Qty: 50 RF: 3 tizanidine 4 mg tablet 4 mg PO BEDTIME PRN (Reason: Spasms) RF: 0 sertraline 100 mg tablet 100 mg PO DAILY RF: 0 Referrals: Momo Cruz [Physician] - 3 days Jaylon Carvajal MD [Primary Care Provider] - 2 days
[2020-10-22] MEDS: diphenhydrAMINE HCL 50 MG/ML VIAL IVPUSH (14:25)
[2020-10-22] MEDS: methylPREDNISolone Sod Succ 125 MG/2 ML VIAL IVPUSH (14:25)
[2020-10-22 14:29] LABS: MANUAL DIFF FLAG NO
[2020-10-22 14:35] LABS: Basophils Absolute Auto 0.1 X10*3/uL (0.0-0.2); Basophils Percent Auto 0.7 % (0-2); Eosinophils Absolute Auto 0.2 X10*3/uL (0.0-0.4); Eosinophils Percent Auto 2.8 % (0-4); Hematocrit 42.8 % (42-52); Hemoglobin 13.9 g/dl (14.0-18.0); Imm Gran Abs Auto 0.03 X10*3/uL (0.00-0.03); Imm Gran Pct Auto 0.4 % (0.0-0.4); Lymphocytes Absolute Auto 1.3 X10*3/uL (1.2-4.9); Lymphocytes Percent Auto 15.9 % (20-40); Mean Corpuscular HGB Conc 32.5 g/dl (31.0-36.0); Mean Corpuscular Hemoglobin 31.3 pg (27.0-33.0); Mean Corpuscular Volume 96.4 fL (80-98); Mean Platelet Volume 11.2 fL (9.4-12.4); Monocytes Absolute Auto 0.6 X10*3/uL (0.1-1.2); Monocytes Percent Auto 7.3 % (2-11); Neutrophils Absolute Auto 6.1 X10*3/uL (2.0-8.3); Neutrophils Percent Auto 72.9 % (45-73); Platelet Count 231 X10*3/uL (160-400); Red Blood Count 4.44 X10*6/uL (4.60-5.80); Red Cell Distribution Width 12.7 % (11.0-16.0); White Blood Count 8.4 X10*3/uL (4.8-10.8)
[2020-10-22 14:37] LABS: OBS Int Ctl Valid YES; OBS1 POSITIVE (NEGATIVE)
[2020-10-22 14:43] LABS: INTERNATIONAL NORM RATIO 2.9 (0.9-1.1); Prothrombin Time 34.4 SEC (10.8-13.0)
[2020-10-22 14:46] LABS: Partial Thromboplastin Time 44.6 SEC (24.1-38.0)
[2020-10-22 14:54] LABS: Lipase 70 U/L (8-78)
[2020-10-22 14:57] LABS: Troponin-I High Sensitivity 7.6 ng/L (<3.5-35.0)
[2020-10-22 14:58] LABS: Alanine Aminotransferase 27 U/L (0-40); Albumin Level 4.2 g/dL (3.5-5.0); Alkaline Phosphatase 60 U/L (39-117); Anion Gap 12 (12-20); Aspartate Amino Transferase 29 U/L (5-37); B Type Natriuretic Peptide 65 pg/mL (<100); Bilirubin Direct 0.2 mg/dL (0.0-0.5); Bilirubin Total 0.7 mg/dL (0.0-1.0); Blood Urea Nitrogen 18 mg/dL (9-16); Calcium 8.5 mg/dL (8.4-10.2); Carbon Dioxide 29 mmol/L (22-29); Chloride 108 mmol/L (96-108); Creatinine Clr Calc Pharmacy 116.4; Estimated Glomerular Filt Rate > 60; Glucose Random 127 mg/dL (60-115); Magnesium 2.3 mg/dL (1.6-2.6); Potassium 4.1 mmol/L (3.3-5.1); Sodium 145 mmol/L (135-145); Total Protein 6.9 g/dL (6.5-8.0)
[2020-10-22] MEDS: 0.9 % Sodium Chloride 500 ML 999 ML IV ×2 (16:07→18:10)
[2020-10-22] MEDS: iohexoL 350 MG/ML 100 ML INFUS..BTL IV (16:29)
[2020-10-22 18:05] LABS: Eosinophils Percent Auto 0.2 % (0-4); MANUAL DIFF FLAG SCAN; Monocytes Absolute Auto 0.1 X10*3/uL (0.1-1.2); Monocytes Percent Auto 1.2 % (2-11); SCAN SMEAR FLAG 1
[2020-10-22 18:29] LABS: Basophils Percent Auto 0.3 % (0-2); Hematocrit 44.1 % (42-52); Hemoglobin 14.3 g/dl (14.0-18.0); Imm Gran Abs Auto 0.04 X10*3/uL (0.00-0.03); Imm Gran Pct Auto 0.5 % (0.0-0.4); Lymphocytes Absolute Auto 0.5 X10*3/uL (1.2-4.9); Lymphocytes Percent Auto 5.2 % (20-40); Mean Corpuscular HGB Conc 32.4 g/dl (31.0-36.0); Mean Corpuscular Hemoglobin 31.1 pg (27.0-33.0); Mean Corpuscular Volume 95.9 fL (80-98); Mean Platelet Volume 11.1 fL (9.4-12.4); Neutrophils Percent Auto 92.6 % (45-73); Platelet Count 218 X10*3/uL (160-400); Red Cell Distribution Width 12.9 % (11.0-16.0); White Blood Count 8.6 X10*3/uL (4.8-10.8)
[2020-10-22 18:34] LABS: SLIDE REVIEW VERIFIED
== END 2020-10-22 19:15 | disposition home or self-care (01) ==
PROVIDERS: Physician Assistant; Emergency Provider Internal Medicine; PCP Internal Medicine
DX: R11.10 Vomiting, unspecified (principal); R10.30 Lower abdominal pain, unspecified; R06.00 Dyspnea, unspecified; I48.91 Unspecified atrial fibrillation; Z79.01 Long term (current) use of anticoagulants; Z87.891 Personal history of nicotine dependence; Z79.899 Other long term (current) drug therapy
CPT/HCPCS: 36415; 71045; 74177; 80048; 80076; 82272; 83605; 83690; 83735; 83880; 84484; 85025; 85610; 85730; 87040; 93005; 96365; 96366; 96375; 99284; J1200; J2930; Q9967

== ENCOUNTER → 2020-10-28 12:10 | Outpatient (BNVA) | payer MEDICARE, MEDICAID, SELFPAY | PROVIDERS: PCP Internal Medicine; Visit Provider Internal Medicine | DX: I26.99 Other pulmonary embolism without acute cor pulmonale (principal); Z79.01 Long term (current) use of anticoagulants; Z51.81 Encounter for therapeutic drug level monitoring | CPT/HCPCS: Q3014 ==

== ENCOUNTER → 2020-10-31 15:16 | Outpatient (BNVA) | payer MEDICARE, MEDICAID, SELFPAY | PROVIDERS: PCP Internal Medicine; Visit Provider Internal Medicine | DX: I26.99 Other pulmonary embolism without acute cor pulmonale (principal); Z79.01 Long term (current) use of anticoagulants; Z51.81 Encounter for therapeutic drug level monitoring | CPT/HCPCS: Q3014 ==

== ENCOUNTER → 2020-11-05 13:42 | Outpatient (BNVA) | payer MEDICARE, MEDICAID, SELFPAY | PROVIDERS: PCP Internal Medicine; Visit Provider Internal Medicine | DX: I26.99 Other pulmonary embolism without acute cor pulmonale (principal); Z79.01 Long term (current) use of anticoagulants; Z51.81 Encounter for therapeutic drug level monitoring | CPT/HCPCS: Q3014 ==

== ENCOUNTER → 2020-11-13 13:08 | Outpatient (BNVA) | payer MEDICARE, MEDICAID, SELFPAY | PROVIDERS: PCP Internal Medicine; Visit Provider Internal Medicine | DX: I26.99 Other pulmonary embolism without acute cor pulmonale (principal); Z51.81 Encounter for therapeutic drug level monitoring; Z79.01 Long term (current) use of anticoagulants | CPT/HCPCS: Q3014 ==

== ENCOUNTER → 2020-11-20 14:58 | Outpatient (BNVA) | payer MEDICARE, MEDICAID, SELFPAY | PROVIDERS: PCP Internal Medicine; Visit Provider Internal Medicine ==

== ENCOUNTER → 2020-11-27 11:40 | Outpatient (BNVA) | payer MEDICARE, MEDICAID, SELFPAY | PROVIDERS: PCP Internal Medicine; Visit Provider Internal Medicine ==

== ENCOUNTER → 2020-12-04 12:01 | Outpatient (BNVA) | payer MEDICARE, MEDICAID, SELFPAY | PROVIDERS: PCP Internal Medicine; Visit Provider Internal Medicine | DX: I26.99 Other pulmonary embolism without acute cor pulmonale (principal) | CPT/HCPCS: Q3014 ==

== ENCOUNTER → 2020-12-11 13:03 | Outpatient (BNVA) | payer MEDICARE, MEDICAID, SELFPAY | PROVIDERS: PCP Internal Medicine; Visit Provider Internal Medicine | DX: Z13.89 Encounter for screening for other disorder (principal) | CPT/HCPCS: Q3014 ==

== ENCOUNTER → 2020-12-18 11:32 | Outpatient (BNVA) | payer MEDICARE, MEDICAID, SELFPAY | PROVIDERS: PCP Internal Medicine; Visit Provider Internal Medicine ==

== ENCOUNTER → 2020-12-25 12:46 | Outpatient (BNVA) | payer MEDICARE, MEDICAID, SELFPAY | PROVIDERS: PCP Internal Medicine; Visit Provider Internal Medicine ==

== ENCOUNTER → 2021-01-01 13:29 | Outpatient (BNVA) | payer MEDICARE, MEDICAID, SELFPAY | PROVIDERS: PCP Internal Medicine; Visit Provider Internal Medicine | DX: I26.99 Other pulmonary embolism without acute cor pulmonale (principal) | CPT/HCPCS: Q3014 ==

== ENCOUNTER → 2021-01-08 11:56 | Outpatient (BNVA) | payer MEDICARE, MEDICAID, SELFPAY | PROVIDERS: PCP Internal Medicine; Visit Provider Internal Medicine ==

== ENCOUNTER → 2021-01-14 14:14 | Outpatient (BNVA) | payer MEDICARE, MEDICAID, SELFPAY | PROVIDERS: PCP Internal Medicine; Referring Provider Internal Medicine; Visit Provider Internal Medicine Cardiovascular Disease | DX: I48.19 Other persistent atrial fibrillation (principal); I42.9 Cardiomyopathy, unspecified | CPT/HCPCS: 93005; 99212 ==

== ENCOUNTER 2021-01-17 09:44 | Outpatient (REF) | payer MEDICARE, MEDICAID, SELFPAY ==
[2021-01-17 11:21] LABS: Estimated Average Glucose 114 mg/dL; Hemoglobin A1c % 5.6 %
[2021-01-17 11:36] LABS: Hematocrit 40.5 % (42-52); Hemoglobin 13.3 g/dl (14.0-18.0); Mean Corpuscular HGB Conc 32.8 g/dl (31.0-36.0); Mean Corpuscular Hemoglobin 31.3 pg (27.0-33.0); Mean Corpuscular Volume 95.3 fL (80-98); Mean Platelet Volume 11.6 fL (9.4-12.4); Platelet Count 224 X10*3/uL (160-400); Red Blood Count 4.25 X10*6/uL (4.60-5.80); Red Cell Distribution Width 12.8 % (11.0-16.0); White Blood Count 7.6 X10*3/uL (4.8-10.8)
[2021-01-17 11:57] LABS: B Type Natriuretic Peptide 91 pg/mL (<100)
[2021-01-17 12:06] LABS: Alanine Aminotransferase 26 U/L (0-40); Albumin Level 3.8 g/dL (3.5-5.0); Alkaline Phosphatase 66 U/L (39-117); Anion Gap 13 (12-20); Aspartate Amino Transferase 32 U/L (5-37); Bilirubin Direct 0.4 mg/dL (0.0-0.5); Bilirubin Total 0.9 mg/dL (0.0-1.0); Blood Urea Nitrogen 13 mg/dL (9-16); Calcium 8.8 mg/dL (8.4-10.2); Carbon Dioxide 27 mmol/L (22-29); Chloride 104 mmol/L (96-108); Estimated Glomerular Filt Rate > 60; Glucose Random 107 mg/dL (60-115); Potassium 4.2 mmol/L (3.3-5.1); Sodium 140 mmol/L (135-145); Total Protein 6.3 g/dL (6.5-8.0)
[2021-01-17 12:07] LABS: Creatinine Urine 149.37 mg/dL; Microalbum/Creatinine Ratio Ur 8.7 ug/mg cr
[2021-01-17 12:20] LABS: TSH reflex Free T4 1.32 uIU/mL (0.32-4.0)
[2021-01-17 12:22] LABS: Digoxin < 0.3 ng/mL (0.8-2.0)
[2021-01-18 07:06] LABS: LDL Cholesterol Direct 76 mg/dL (<100)
== END 2021-01-17 09:45 | disposition home or self-care (01) ==
LOC: HO.LAB 09:44
PROVIDERS: Absent Provider Internal Medicine Cardiovascular Disease; PCP Internal Medicine; Referring Provider Internal Medicine; Visit Provider Internal Medicine
DX: E13.9 Other specified diabetes mellitus without complications (principal); E66.01 Morbid (severe) obesity due to excess calories; K21.9 Gastro-esophageal reflux disease without esophagitis; M62.838 Other muscle spasm; R06.02 Shortness of breath; I42.9 Cardiomyopathy, unspecified; I48.19 Other persistent atrial fibrillation
CPT/HCPCS: 36415; 80053; 80076; 80162; 82043; 82248; 83036; 83721; 83880; 84443; 85027; 85610; 99211

== ENCOUNTER → 2021-01-31 14:15 | Outpatient (BNVA) | payer MEDICARE, MEDICAID, SELFPAY | PROVIDERS: PCP Internal Medicine; Visit Provider Internal Medicine | DX: I26.99 Other pulmonary embolism without acute cor pulmonale (principal); Z51.81 Encounter for therapeutic drug level monitoring; Z79.01 Long term (current) use of anticoagulants | CPT/HCPCS: 85610; 99211 ==

== ENCOUNTER → 2021-02-28 14:19 | Outpatient (BNVA) | payer MEDICARE, MEDICAID, SELFPAY | PROVIDERS: PCP Internal Medicine; Visit Provider Internal Medicine | DX: I26.99 Other pulmonary embolism without acute cor pulmonale (principal); Z51.81 Encounter for therapeutic drug level monitoring; Z79.01 Long term (current) use of anticoagulants | CPT/HCPCS: 85610 ==

== ENCOUNTER → 2021-03-14 14:20 | Outpatient (BNVA) | payer MEDICARE, MEDICAID, SELFPAY | PROVIDERS: PCP Internal Medicine; Visit Provider Internal Medicine | DX: I26.99 Other pulmonary embolism without acute cor pulmonale (principal); Z51.81 Encounter for therapeutic drug level monitoring; Z79.01 Long term (current) use of anticoagulants | CPT/HCPCS: 85610; 99211 ==

== ENCOUNTER → 2021-03-18 14:17 | Outpatient (BNVA) | payer MEDICARE, MEDICAID, SELFPAY | PROVIDERS: PCP Internal Medicine; Referring Provider Internal Medicine; Visit Provider Nurse Practitioner Family | DX: I25.10 Atherosclerotic heart disease of native coronary artery without angina pectoris (principal); I48.19 Other persistent atrial fibrillation; I42.9 Cardiomyopathy, unspecified; I10 Essential (primary) hypertension; E11.9 Type 2 diabetes mellitus without complications; E78.5 Hyperlipidemia, unspecified; E66.01 Morbid (severe) obesity due to excess calories; G47.33 Obstructive sleep apnea (adult) (pediatric); Z68.43 Body mass index [BMI] 50.0-59.9, adult; Z99.89 Dependence on other enabling machines and devices; Z88.8 Allergy status to other drugs, medicaments and biological substances; Z91.040 Latex allergy status; Z91.013 Allergy to seafood; Z79.01 Long term (current) use of anticoagulants; Z79.84 Long term (current) use of oral hypoglycemic drugs; Z79.899 Other long term (current) drug therapy | CPT/HCPCS: 99212 ==

== ENCOUNTER → 2021-04-04 14:15 | Outpatient (BNVA) | payer MEDICARE, MEDICAID, SELFPAY | PROVIDERS: PCP Internal Medicine; Visit Provider Internal Medicine | DX: I26.99 Other pulmonary embolism without acute cor pulmonale (principal); Z51.81 Encounter for therapeutic drug level monitoring; Z79.01 Long term (current) use of anticoagulants | CPT/HCPCS: 85610; 99211 ==

== ENCOUNTER 2021-04-17 08:49 | Outpatient (RCR) | payer MEDICARE, MEDICAID, SELFPAY | END 2021-04-22 14:45 | disposition home or self-care (01) | LOC: HO.WCC 08:49 | PROVIDERS: PCP Internal Medicine; Visit Provider Surgery | DX: I87.393 Chronic venous hypertension (idiopathic) with other complications of bilateral lower extremity (principal); E11.9 Type 2 diabetes mellitus without complications; Z79.84 Long term (current) use of oral hypoglycemic drugs; Z87.891 Personal history of nicotine dependence | CPT/HCPCS: 99213 ==

== ENCOUNTER → 2021-04-25 14:18 | Outpatient (BNVA) | payer MEDICARE, MEDICAID, SELFPAY | PROVIDERS: PCP Internal Medicine; Visit Provider Internal Medicine | DX: I26.99 Other pulmonary embolism without acute cor pulmonale (principal); Z51.81 Encounter for therapeutic drug level monitoring; Z79.01 Long term (current) use of anticoagulants | CPT/HCPCS: 85610; 99211 ==

== ENCOUNTER 2021-05-16 14:17 | Outpatient (REF) | payer MEDICARE, MEDICAID, SELFPAY ==
[2021-05-16 15:18] LABS: Estimated Average Glucose 128 mg/dL; Hemoglobin A1c % 6.1 %
[2021-05-16 15:27] LABS: Alanine Aminotransferase 23 U/L (0-40); Albumin Level 3.8 g/dL (3.5-5.0); Alkaline Phosphatase 76 U/L (39-117); Anion Gap 13 (12-20); Aspartate Amino Transferase 34 U/L (5-37); Bilirubin Total 0.6 mg/dL (0.0-1.0); Blood Urea Nitrogen 10 mg/dL (9-16); Calcium 8.6 mg/dL (8.4-10.2); Carbon Dioxide 24 mmol/L (22-29); Chloride 107 mmol/L (96-108); Estimated Glomerular Filt Rate > 60; Glucose Random 147 mg/dL (60-115); Potassium 4.3 mmol/L (3.3-5.1); Sodium 140 mmol/L (135-145); Total Protein 6.4 g/dL (6.5-8.0)
[2021-05-16 15:45] LABS: Creatinine Urine 128.28 mg/dL; Microalbumin Urine < 5.0 mg/L
== END 2021-05-16 14:18 | disposition home or self-care (01) ==
LOC: HO.LAB 14:17
PROVIDERS: PCP Internal Medicine; Visit Provider Internal Medicine
DX: E13.9 Other specified diabetes mellitus without complications (principal); I48.19 Other persistent atrial fibrillation; I42.9 Cardiomyopathy, unspecified; R06.02 Shortness of breath; E66.01 Morbid (severe) obesity due to excess calories; I27.82 Chronic pulmonary embolism; K21.9 Gastro-esophageal reflux disease without esophagitis; F33.9 Major depressive disorder, recurrent, unspecified; F41.1 Generalized anxiety disorder; R21 Rash and other nonspecific skin eruption; M17.11 Unilateral primary osteoarthritis, right knee; I25.10 Atherosclerotic heart disease of native coronary artery without angina pectoris; R25.1 Tremor, unspecified; I26.99 Other pulmonary embolism without acute cor pulmonale; Z91.09 Other allergy status, other than to drugs and biological substances; Z79.01 Long term (current) use of anticoagulants; Z51.81 Encounter for therapeutic drug level monitoring
CPT/HCPCS: 36415; 80053; 82043; 83036; 85610; 99211

== ENCOUNTER 2021-06-10 14:18 | Outpatient (REF) | payer MEDICARE, MEDICAID, SELFPAY ==
[2021-06-10 15:06] LABS: MANUAL DIFF FLAG NO
[2021-06-10 15:17] LABS: Basophils Percent Auto 0.5 % (0-2); Eosinophils Absolute Auto 0.2 X10*3/uL (0.0-0.4); Eosinophils Percent Auto 2.1 % (0-4); Hematocrit 44.8 % (42.0-52.0); Hemoglobin 14.7 g/dl (14.0-18.0); Imm Gran Abs Auto 0.02 X10*3/uL (0.00-0.03); Imm Gran Pct Auto 0.2 % (0.0-0.4); Lymphocytes Absolute Auto 1.1 X10*3/uL (1.2-4.9); Lymphocytes Percent Auto 13.1 % (20-40); Mean Corpuscular HGB Conc 32.8 g/dl (31.0-36.0); Mean Corpuscular Hemoglobin 30.6 pg (27.0-33.0); Mean Corpuscular Volume 93.1 fL (80.0-98.0); Mean Platelet Volume 11.4 fL (9.4-12.4); Monocytes Absolute Auto 0.4 X10*3/uL (0.1-1.2); Monocytes Percent Auto 4.5 % (2-11); Neutrophils Absolute Auto 6.9 x10*3/uL (2.0-8.3); Neutrophils Percent Auto 79.6 % (45-73); Platelet Count 244 X10*3/uL (160-400); Red Blood Count 4.81 X10*6/uL (4.60-5.80); Red Cell Distribution Width 13.2 % (11.0-16.0); White Blood Count 8.6 X10*3/uL (4.8-10.8)
[2021-06-10 15:28] LABS: Estimated Average Glucose 134 mg/dL; Hemoglobin A1c % 6.3 %
[2021-06-10 15:43] LABS: Digoxin 0.6 ng/mL (0.8-2.0)
[2021-06-10 15:52] LABS: Alanine Aminotransferase 28 U/L (0-40); Albumin Level 3.8 g/dL (3.5-5.0); Alkaline Phosphatase 75 U/L (39-117); Anion Gap 13 (12-20); Aspartate Amino Transferase 34 U/L (5-37); Bilirubin Direct 0.4 mg/dL (0.0-0.5); Bilirubin Total 0.7 mg/dL (0.0-1.0); Blood Urea Nitrogen 8 mg/dL (9-16); C Reactive Protein 0.86 mg/dL (< or = 0.50); Calcium 8.8 mg/dL (8.4-10.2); Carbon Dioxide 28 mmol/L (22-29); Chloride 105 mmol/L (96-108); Estimated Glomerular Filt Rate > 60; Glucose Random 120 mg/dL (60-115); Potassium 4.5 mmol/L (3.3-5.1); Sodium 141 mmol/L (135-145); Total Protein 6.5 g/dL (6.5-8.0)
[2021-06-10 16:34] LABS: Erythrocyte Sedimentation Rate 11 MM/HR (0-15)
== END 2021-06-10 14:19 | disposition home or self-care (01) ==
LOC: HO.LAB 14:18
PROVIDERS: Nurse Practitioner Family; PCP Internal Medicine; Visit Provider Internal Medicine
DX: I26.99 Other pulmonary embolism without acute cor pulmonale (principal); I48.19 Other persistent atrial fibrillation; E13.9 Other specified diabetes mellitus without complications; E66.01 Morbid (severe) obesity due to excess calories; K21.9 Gastro-esophageal reflux disease without esophagitis; M62.838 Other muscle spasm; R51.9 Headache, unspecified; Z51.81 Encounter for therapeutic drug level monitoring; Z79.01 Long term (current) use of anticoagulants; Z79.899 Other long term (current) drug therapy
CPT/HCPCS: 36415; 80048; 80076; 80162; 83036; 85025; 85610; 85652; 86140; 99211

== ENCOUNTER → 2021-06-17 14:16 | Outpatient (BNVA) | payer MEDICARE, MEDICAID, SELFPAY | PROVIDERS: PCP Internal Medicine; Referring Provider Internal Medicine; Visit Provider Internal Medicine Cardiovascular Disease | DX: I48.19 Other persistent atrial fibrillation (principal); I42.9 Cardiomyopathy, unspecified | CPT/HCPCS: 99212 ==

== ENCOUNTER → 2021-06-27 15:45 | Outpatient (BNVA) | payer MEDICARE, MEDICAID, SELFPAY | PROVIDERS: PCP Internal Medicine; Visit Provider Internal Medicine | DX: I26.99 Other pulmonary embolism without acute cor pulmonale (principal) | CPT/HCPCS: Q3014 ==

== ENCOUNTER → 2021-07-01 14:16 | Outpatient (BNVA) | payer MEDICARE, MEDICAID, SELFPAY | PROVIDERS: PCP Internal Medicine; Visit Provider Internal Medicine | DX: I26.99 Other pulmonary embolism without acute cor pulmonale (principal); Z51.81 Encounter for therapeutic drug level monitoring; Z79.01 Long term (current) use of anticoagulants | CPT/HCPCS: 85610; 99211 ==

== ENCOUNTER → 2021-07-09 10:17 | Outpatient (BNVA) | payer MEDICARE, MEDICAID, SELFPAY | PROVIDERS: PCP Internal Medicine; Visit Provider Internal Medicine | DX: I26.99 Other pulmonary embolism without acute cor pulmonale (principal); Z51.81 Encounter for therapeutic drug level monitoring; Z79.01 Long term (current) use of anticoagulants | CPT/HCPCS: 85610; 99211 ==

== ENCOUNTER → 2021-07-22 14:16 | Outpatient (BNVA) | payer MEDICARE, MEDICAID, SELFPAY | PROVIDERS: PCP Internal Medicine; Visit Provider Internal Medicine | DX: I26.99 Other pulmonary embolism without acute cor pulmonale (principal); Z51.81 Encounter for therapeutic drug level monitoring; Z79.01 Long term (current) use of anticoagulants | CPT/HCPCS: 85610; 99211 ==

== ENCOUNTER → 2021-07-29 14:01 | Outpatient (BNVA) | payer MEDICARE, MEDICAID, SELFPAY | PROVIDERS: PCP Internal Medicine; Visit Provider Internal Medicine | DX: I26.99 Other pulmonary embolism without acute cor pulmonale (principal); Z51.81 Encounter for therapeutic drug level monitoring; Z79.01 Long term (current) use of anticoagulants | CPT/HCPCS: 85610; 99211 ==

== ENCOUNTER → 2021-08-05 14:07 | Outpatient (BNVA) | payer MEDICARE, SELFPAY | PROVIDERS: PCP Internal Medicine; Visit Provider Hospitalist | DX: J44.9 Chronic obstructive pulmonary disease, unspecified (principal); G47.33 Obstructive sleep apnea (adult) (pediatric); I27.82 Chronic pulmonary embolism; R06.00 Dyspnea, unspecified; R06.02 Shortness of breath; E66.01 Morbid (severe) obesity due to excess calories; Z99.89 Dependence on other enabling machines and devices; Z68.42 Body mass index [BMI] 45.0-49.9, adult | CPT/HCPCS: 99202 ==

== ENCOUNTER → 2021-08-12 14:13 | Outpatient (BNVA) | payer MEDICARE, SELFPAY | PROVIDERS: PCP Internal Medicine; Visit Provider Internal Medicine | DX: I26.99 Other pulmonary embolism without acute cor pulmonale (principal); Z51.81 Encounter for therapeutic drug level monitoring; Z79.01 Long term (current) use of anticoagulants | CPT/HCPCS: 85610; 99211 ==

== ENCOUNTER → 2021-09-02 14:48 | Outpatient (BNVA) | payer MEDICARE, SELFPAY | PROVIDERS: PCP Internal Medicine; Visit Provider Internal Medicine | DX: I26.99 Other pulmonary embolism without acute cor pulmonale (principal); Z51.81 Encounter for therapeutic drug level monitoring; Z79.01 Long term (current) use of anticoagulants | CPT/HCPCS: 85610; 99211 ==

== ENCOUNTER 2021-09-23 13:58 | Outpatient (REF) | payer MEDICARE, SELFPAY ==
--- NOTE | 2021-09-23 | PFT_ITS ---
Forced vital capacity 62%, FEV1 65%, FEV1/FVC ratio is 77, FEF 25-75 69%, and MVV is 50%. After bronchodilator therapy, there is only minimal improvement in FEF 25-75. Total lung capacity is 82%. Residual volume 122%. Diffusion capacity 88%. CONCLUSION: Patient may have a mild degree of restrictive disorder. Also, possible mild degree of obstructive airway disorder with preserved ratio of FEV1/FVC. Very minimal improvement after bronchodilator therapy is noted. Clinical correlation recommended. MD PRIYANKA Conklin/MODL / [id number]
== END 2021-09-23 13:59 | disposition home or self-care (01) ==
LOC: HO.RESP 13:58
PROVIDERS: PCP Internal Medicine; Visit Provider Hospitalist
DX: I26.99 Other pulmonary embolism without acute cor pulmonale (principal); R06.00 Dyspnea, unspecified; Z51.81 Encounter for therapeutic drug level monitoring; Z79.01 Long term (current) use of anticoagulants
CPT/HCPCS: 85610; 94060; 94727; 94729; 99211

== ENCOUNTER → 2021-10-14 15:15 | Outpatient (BNVA) | payer MEDICARE, SELFPAY | PROVIDERS: PCP Internal Medicine; Visit Provider Internal Medicine | DX: I26.99 Other pulmonary embolism without acute cor pulmonale (principal); Z51.81 Encounter for therapeutic drug level monitoring; Z79.01 Long term (current) use of anticoagulants | CPT/HCPCS: 85610; 99211 ==

== ENCOUNTER 2021-10-28 14:12 | Outpatient (REF) | payer MEDICARE, SELFPAY ==
[2021-10-28 14:52] LABS: MANUAL DIFF FLAG NO
[2021-10-28 15:04] LABS: Basophils Percent Auto 0.4 % (0-2); Eosinophils Absolute Auto 0.1 X10*3/uL (0.0-0.4); Eosinophils Percent Auto 1.5 % (0-4); Hematocrit 44.6 % (42.0-52.0); Hemoglobin 14.7 g/dl (14.0-18.0); Imm Gran Abs Auto 0.03 X10*3/uL (0.00-0.03); Imm Gran Pct Auto 0.3 % (0.0-0.4); Lymphocytes Absolute Auto 1.7 X10*3/uL (1.2-4.9); Lymphocytes Percent Auto 17.8 % (20-40); Mean Corpuscular Hemoglobin 31.5 pg (27.0-33.0); Mean Corpuscular Volume 95.7 fL (80.0-98.0); Mean Platelet Volume 10.8 fL (9.4-12.4); Monocytes Absolute Auto 0.6 X10*3/uL (0.1-1.2); Monocytes Percent Auto 5.9 % (2-11); Neutrophils Percent Auto 74.1 % (45-73); Platelet Count 252 X10*3/uL (160-400); Red Blood Count 4.66 X10*6/uL (4.60-5.80); Red Cell Distribution Width 12.6 % (11.0-16.0); White Blood Count 9.5 X10*3/uL (4.8-10.8)
[2021-10-28 15:17] LABS: Estimated Average Glucose 137 mg/dL; Hemoglobin A1c % 6.4 %
[2021-10-28 15:29] LABS: Alanine Aminotransferase 28 U/L (0-40); Albumin Level 4.2 g/dL (3.5-5.0); Alkaline Phosphatase 78 U/L (39-117); Anion Gap 13 (12-20); Aspartate Amino Transferase 33 U/L (5-37); Bilirubin Total 0.8 mg/dL (0.0-1.0); Blood Urea Nitrogen 15 mg/dL (9-16); Calcium 9.6 mg/dL (8.4-10.2); Carbon Dioxide 30 mmol/L (22-29); Chloride 101 mmol/L (96-108); Estimated Glomerular Filt Rate > 60; Glucose Random 129 mg/dL (60-115); Sodium 139 mmol/L (135-145); Total Protein 7.1 g/dL (6.5-8.0)
[2021-10-28 15:51] LABS: TSH reflex Free T4 1.39 uIU/mL (0.32-4.0)
[2021-10-29 07:47] LABS: LDL Cholesterol Direct 71 mg/dL (<100)
== END 2021-10-28 14:13 | disposition home or self-care (01) ==
LOC: HO.LAB 14:12
PROVIDERS: PCP Internal Medicine; Visit Provider Hospitalist
DX: I26.99 Other pulmonary embolism without acute cor pulmonale (principal); Z51.81 Encounter for therapeutic drug level monitoring; Z79.01 Long term (current) use of anticoagulants; E13.9 Other specified diabetes mellitus without complications; F33.9 Major depressive disorder, recurrent, unspecified; F41.1 Generalized anxiety disorder; I25.10 Atherosclerotic heart disease of native coronary artery without angina pectoris; R06.00 Dyspnea, unspecified; G47.33 Obstructive sleep apnea (adult) (pediatric); E66.01 Morbid (severe) obesity due to excess calories; I27.82 Chronic pulmonary embolism; Z99.89 Dependence on other enabling machines and devices
CPT/HCPCS: 36415; 80053; 83036; 83721; 84443; 85025; 85610; 99211; 99212

== ENCOUNTER → 2021-11-14 08:21 | Outpatient (REF) | payer MEDICARE, SELFPAY ==
--- NOTE | 2021-11-14 09:17 | CA_ITS ---
Transthoracic Echocardiogram Patient (Last, First, Middle): Misbah Iverson M Gender: Male Date of : 1950 Age: 71 Procedure Date: 11/14/2021 Procedure Type: Transthoracic Echocardiogram Location: OP Height: 180.34 cm Weight: 153.32 kg BSA: 2.64 m2 Heart Rate: bpm BP: 125 / 76 mmHg Egg Crater: ANNIE Referring MD: Khris Lewis MD Symptoms: I42.9 - Cardiomyopathy, unspecified Study Quality: Technically Difficult ECG Rhythm: Atrial Fibrillation Conclusions: - The left ventricular systolic function is moderately decreased. The calculated ejection fraction is 36% by biplane method. - No obvious valvular pathology seen on this study. - There is moderate dilatation of the ascending aorta measuring 4.50 cm. Findings Left Ventricle Normal left ventricular cavity size. There is mildly increased left ventricular wall thickness. The left ventricular systolic function is moderately decreased. The calculated ejection fraction is 36% by biplane method. There is moderate global hypokinesis. Diastolic function is indeterminate on the basis of available data. Right Ventricle Normal right ventricular cavity size and systolic function. Atria The left atrium is mildly dilated. The right atrium is normal in size. Aortic Valve The aortic valve structure and function is likely normal. There is mild calcification of the aortic valve. There is no aortic valve stenosis. There is no aortic valve regurgitation. Mitral Valve The mitral valve appears normal. There is mild mitral valve regurgitation. There is no mitral valve stenosis. Pulmonic Valve The pulmonic valve is likely normal. Tricuspid Valve The tricuspid valve was not well visualized. There is trace tricuspid valve regurgitation. The pulmonary artery systolic pressure is normal. Great Vessels There is moderate dilatation of the ascending aorta measuring 4.50 cm. Venous The inferior vena cava is mildly dilated and collapses greater than 50% with inspiration. Pericardium/Pleural There is a trivial pericardial effusion. Prior Study Comparison Changes noted compared to prior study dated: 07/30/2020. Minimal change in ascending aortic size. Recommendations, Care & Conclusions No obvious valvular pathology seen on this study. Measurements 2D Linear Measurements IVSd: 1.18 0.6-0.9/0.6-1.0 cm LVIDd: 6.11 3.9-5.3/4.2-5.9 cm LVIDd Index: 2.31 2.4-3.2/2.2-3.1 cm/m2 LVIDs: 4.71 2.0-3.6 cm LVPWd: 1.33 0.7-1.1 cm LA Diam: 4.90 2.7-3.8/3.0-4.0 cm LAIDs Index: 1.86 1.5-2.3 cm/m2 LV Mass: 428.90 67-162/88-224 g LV Mass Index: 162.46 43-95/49-115 g/m2 LVOT Diam: 2.60 3.0+(-)1.3 cm 2D Systolic Function EF 4C: 34.60 >55% EF 2C: 35.90 >55% EF BiP: 35.60 >55% Aortic Valve AoV Pk Tiburcio: 1.45 AoV Mn Tiburcio: 1.10 AoV VTI: 0.28 AoV Pk Grad: 8.00 Aov Mn Grad: 5.00 RAMONA Cont.VTI: 3.21 LVOT LVOT Pk Tiburcio: 0.84 LVOT Mn Tiburcio: 0.57 LVOT VTI: 0.17 LVOT Pk Grad: 3.00 LVOT Mn Grad: 2.00 LVOT Diam: 2.60 LVOT Area: 5.31 Right Ventricle TAPSE (mm): 22.00 TVS' Tiburcio: 11.60 Tricuspid Valve TR Pk Tiburcio: 1.85 TR Pk Grad: 14.00 RA Press: 8.00 RVSP: 22.00 Great Vessels Aorta Sinus of Valsalva: 4.00 2.0-3.5 cm Ao Asc: 4.50 2.1-3.4 cm Updated in Other Vendor System with Status of Final Bert Zayas MD electronically signed on 11/15/2021 1:27:58 PM with status of Final
[2021-11-14 10:32] LABS: Digoxin 1.2 ng/mL (0.8-2.0)
== END ==
LOC: HO.CARD 08:21
PROVIDERS: Absent Provider Physician Assistant Medical; PCP Internal Medicine; Visit Provider Internal Medicine Cardiovascular Disease
DX: I42.9 Cardiomyopathy, unspecified (principal); I26.99 Other pulmonary embolism without acute cor pulmonale; Z51.81 Encounter for therapeutic drug level monitoring; Z79.01 Long term (current) use of anticoagulants; Z79.899 Other long term (current) drug therapy
CPT/HCPCS: 36415; 80162; 85610; 93306; 99211

== ENCOUNTER → 2021-12-02 13:54 | Outpatient (BNVA) | payer MEDICARE, SELFPAY | PROVIDERS: PCP Internal Medicine; Visit Provider Internal Medicine | DX: I26.99 Other pulmonary embolism without acute cor pulmonale (principal); Z79.01 Long term (current) use of anticoagulants; Z51.81 Encounter for therapeutic drug level monitoring | CPT/HCPCS: 85610; 99211 ==

== ENCOUNTER → 2021-12-09 14:16 | Outpatient (BNVA) | payer MEDICARE, SELFPAY | PROVIDERS: PCP Internal Medicine; Referring Provider Internal Medicine; Visit Provider Internal Medicine Cardiovascular Disease | DX: I50.20 Unspecified systolic (congestive) heart failure (principal); I48.19 Other persistent atrial fibrillation | CPT/HCPCS: 99212 ==

== ENCOUNTER → 2021-12-16 13:14 | Outpatient (BNVA) | payer MEDICARE, SELFPAY | PROVIDERS: PCP Internal Medicine; Visit Provider Internal Medicine | DX: I26.99 Other pulmonary embolism without acute cor pulmonale (principal); Z79.01 Long term (current) use of anticoagulants; Z51.81 Encounter for therapeutic drug level monitoring | CPT/HCPCS: 85610; 99211 ==

== ENCOUNTER → 2021-12-30 13:02 | Outpatient (BNVA) | payer MEDICARE, SELFPAY | PROVIDERS: PCP Internal Medicine; Visit Provider Internal Medicine | DX: I26.99 Other pulmonary embolism without acute cor pulmonale (principal); Z79.01 Long term (current) use of anticoagulants; Z51.81 Encounter for therapeutic drug level monitoring | CPT/HCPCS: 85610; 99211 ==

== ENCOUNTER → 2022-01-27 13:05 | Outpatient (BNVA) | payer MEDICARE, SELFPAY | PROVIDERS: PCP Internal Medicine; Visit Provider Internal Medicine | DX: I26.99 Other pulmonary embolism without acute cor pulmonale (principal); Z51.81 Encounter for therapeutic drug level monitoring; Z79.01 Long term (current) use of anticoagulants | CPT/HCPCS: 85610; 99211 ==

== ENCOUNTER → 2022-02-24 13:03 | Outpatient (BNVA) | payer MEDICARE, SELFPAY | PROVIDERS: PCP Internal Medicine; Visit Provider Internal Medicine | DX: I26.99 Other pulmonary embolism without acute cor pulmonale (principal); Z79.01 Long term (current) use of anticoagulants; Z51.81 Encounter for therapeutic drug level monitoring | CPT/HCPCS: 85610; 99211 ==

== ENCOUNTER → 2022-03-03 13:15 | Outpatient (BNVA) | payer MEDICARE, SELFPAY | PROVIDERS: PCP Internal Medicine; Visit Provider Internal Medicine | DX: I26.99 Other pulmonary embolism without acute cor pulmonale (principal); Z79.01 Long term (current) use of anticoagulants; Z51.81 Encounter for therapeutic drug level monitoring | CPT/HCPCS: 85610; 99211 ==

== ENCOUNTER → 2022-03-10 13:04 | Outpatient (BNVA) | payer MEDICARE, SELFPAY | PROVIDERS: PCP Internal Medicine; Visit Provider Internal Medicine | DX: I26.99 Other pulmonary embolism without acute cor pulmonale (principal); Z79.01 Long term (current) use of anticoagulants; Z51.81 Encounter for therapeutic drug level monitoring | CPT/HCPCS: 85610; 99211 ==

== ENCOUNTER → 2022-03-17 13:28 | Outpatient (BNVA) | payer MEDICARE, SELFPAY | PROVIDERS: PCP Internal Medicine; Referring Provider Internal Medicine; Visit Provider Internal Medicine Cardiovascular Disease | DX: I50.20 Unspecified systolic (congestive) heart failure (principal); I48.19 Other persistent atrial fibrillation | CPT/HCPCS: 93005; 99212 ==

== ENCOUNTER → 2022-03-27 09:11 | Outpatient (REF) | payer MEDICARE, SELFPAY ==
--- NOTE | 2022-03-27 09:14 | HM_ITS ---
Conclusion: 1. Patient was monitored for total period of 3 days and 2 hours 2. Baseline rhythm was atrial fibrillation with average heart of 74 beats per minute peak heart rate 125 beats with adequate rate control 3. No significant pauses or bradycardia noted 4. Very rare PVCs noted 5. No patient reported events MTDD
[2022-03-27 10:58] LABS: B Type Natriuretic Peptide 42 pg/mL (<100)
[2022-03-27 11:02] LABS: Anion Gap 15 (12-20); Blood Urea Nitrogen 14 mg/dL (9-16); Calcium 8.7 mg/dL (8.4-10.2); Carbon Dioxide 26 mmol/L (22-29); Chloride 102 mmol/L (96-108); Estimated Glomerular Filt Rate > 60; Glucose Random 174 mg/dL (60-115); Potassium 4.6 mmol/L (3.3-5.1); Sodium 138 mmol/L (135-145)
== END ==
LOC: HO.CARD 09:11
PROVIDERS: Visit Provider Internal Medicine Cardiovascular Disease
DX: I26.99 Other pulmonary embolism without acute cor pulmonale (principal); I48.20 Chronic atrial fibrillation, unspecified; Z51.81 Encounter for therapeutic drug level monitoring; Z79.01 Long term (current) use of anticoagulants
CPT/HCPCS: 36415; 80048; 80162; 83880; 85610; 93242; 99211

== ENCOUNTER → 2022-04-17 11:31 | Outpatient (BNVA) | payer MEDICARE, SELFPAY | PROVIDERS: PCP Internal Medicine; Visit Provider Internal Medicine | DX: I26.99 Other pulmonary embolism without acute cor pulmonale (principal); Z79.01 Long term (current) use of anticoagulants; Z51.81 Encounter for therapeutic drug level monitoring | CPT/HCPCS: 85610; 99211 ==

== ENCOUNTER → 2022-05-01 09:43 | Outpatient (BNVA) | payer MEDICARE, SELFPAY | PROVIDERS: PCP Internal Medicine; Visit Provider Internal Medicine | DX: I26.99 Other pulmonary embolism without acute cor pulmonale (principal); Z79.01 Long term (current) use of anticoagulants; Z51.81 Encounter for therapeutic drug level monitoring | CPT/HCPCS: 85610; 99212 ==

== ENCOUNTER 2022-05-05 13:39 | Outpatient (REF) | payer MEDICARE, SELFPAY ==
--- NOTE | ~2022-05-05 | XR_ITS ---
EXAMINATION: XR FINGER, LEFT CLINICAL INFORMATION: Injury of the fifth finger COMPARISON: None TECHNIQUE: Three views of the left hand fifth digit. FINDINGS: No fracture or dislocation. Mild joint space narrowing of the fifth digit proximal and distal interphalangeal joints with small osteophytes present. The soft tissues are unremarkable. XR/XR finger LT min 2V IMPRESSION: No fracture or malalignment. Mild degenerative changes of the fifth digit.
== END 2022-05-05 13:40 | disposition home or self-care (01) ==
LOC: HO.HMGCX 13:39
PROVIDERS: PCP Internal Medicine; Visit Provider Internal Medicine
DX: S69.92XA Unspecified injury of left wrist, hand and finger(s), initial encounter (principal); X58.XXXA Exposure to other specified factors, initial encounter; Y93.9 Activity, unspecified; Y92.9 Unspecified place or not applicable; Y99.9 Unspecified external cause status
CPT/HCPCS: 73140

== ENCOUNTER → 2022-05-15 10:10 | Outpatient (BNVA) | payer MEDICARE, SELFPAY | PROVIDERS: PCP Internal Medicine; Visit Provider Internal Medicine | DX: I26.99 Other pulmonary embolism without acute cor pulmonale (principal); Z79.01 Long term (current) use of anticoagulants; Z51.81 Encounter for therapeutic drug level monitoring | CPT/HCPCS: 85610; 99211 ==

== ENCOUNTER → 2022-05-29 09:24 | Outpatient (BNVA) | payer MEDICARE, SELFPAY | PROVIDERS: PCP Internal Medicine; Visit Provider Internal Medicine | DX: I26.99 Other pulmonary embolism without acute cor pulmonale (principal); Z79.01 Long term (current) use of anticoagulants; Z51.81 Encounter for therapeutic drug level monitoring | CPT/HCPCS: 85610; 99211 ==

== ENCOUNTER → 2022-06-19 10:45 | Outpatient (BNVA) | payer MEDICARE, SELFPAY | PROVIDERS: PCP Internal Medicine; Visit Provider Internal Medicine | DX: I26.99 Other pulmonary embolism without acute cor pulmonale (principal); Z79.01 Long term (current) use of anticoagulants; Z51.81 Encounter for therapeutic drug level monitoring | CPT/HCPCS: 85610; 99211 ==

== ENCOUNTER → 2022-06-23 13:37 | Outpatient (BNVA) | payer MEDICARE, SELFPAY | PROVIDERS: PCP Internal Medicine; Referring Provider Internal Medicine; Visit Provider Internal Medicine Cardiovascular Disease | DX: I50.20 Unspecified systolic (congestive) heart failure (principal); I48.19 Other persistent atrial fibrillation | CPT/HCPCS: 99212 ==

== ENCOUNTER 2022-07-05 14:08 | Emergency (ER) | payer MEDICARE, SELFPAY ==
--- NOTE | ~2022-07-05 | CT_ITS ---
EXAMINATION: NONCONTRAST HEAD CT NONCONTRAST CERVICAL SPINE CT INDICATION INFORMATION: Fall with head injury 2 weeks ago COMPARISON: Head and C-spine CT 09/02/2018 TECHNIQUE: Separate noncontrast CT examinations of the head and cervical spine were performed. Coronal and sagittal images were created for each examination at the technologist workstation. This CT examination was performed using dose optimization techniques as appropriate, variously including the following: *Automated exposure control *Adjustment of mA and/or kV according to patient size (this includes techniques or standardized protocols for targeted exams where dose is matched to indication/reason for exam; i.e. extremities or head) *Use of iterative reconstruction technique DLP: 1555 mGy-cm FINDINGS: HEAD: No intra or extra-axial fluid collection, hemorrhage, or mass. No ventriculomegaly. No midline shift or herniation. Basal cisterns are patent. Jacobson-white matter differentiation is maintained. No territorial encephalomalacia. Proportional prominence of the ventricles and sulcal spaces is consistent with mild volume loss. There is no abnormal attenuation within the brain parenchyma. Small 1 cm left posterior scalp nodule, indeterminate, likely a cyst. No calvarial fracture. This mild mucosal thickening in the sphenoid sinuses. Partial opacification of a few inferior right mastoid air cells, nonspecific. Remainder of the paranasal sinuses and left mastoid air cells are normally aerated. CERVICAL SPINE: Alignment: Minimal grade 1 anterolisthesis at C3-C4 likely due to facet arthrosis, unchanged. Straightening of the normal cervical lordosis. Vertebra: The T1 vertebral body is not included in the [id number]. No acute fractures identified in the cervical spine. Slightly suboptimal assessment of the lower cervical vertebral bodies due to quantum mottle/photon starvation. No acute fracture. No prevertebral soft tissue swelling. Degenerative disc disease: Moderate cervical spondylosis at C6-C7. Otherwise, moderate disc degenerative changes in the cervical spine. Multilevel bilateral facet arthrosis Other findings: Visualized portion of the thyroid gland is grossly unremarkable. No lymphadenopathy in the [id number]. Lung apices were not included in the [id number] on this exam. CT/CT cervical spine wo IV con IMPRESSION: 1. No intracranial hemorrhage or calvarial fracture. 2. No traumatic subluxation or acute cervical spine fracture.
--- NOTE | ~2022-07-05 | XR_ITS ---
EXAMINATION: XR lumbar spine 2-3V, XR thoracic spine 3V CLINICAL INFORMATION: Reason for Exam s/p fall c back pain COMPARISON: Thoracic spine radiographs 01/04/2019, CT abdomen and pelvis 10/22/2020 TECHNIQUE: AP, lateral, swimmer's lateral view thoracic spine; 3 views lumbosacral spine FINDINGS: Thoracic spine: Normal alignment of the thoracic spine. No subluxation. Minimal anterior height loss of T11 is unchanged. Vertebral body heights otherwise maintained. Changes of underlying DISH with partial anterior longitudinal ligament ossification and bridging osteophytes noted in the thoracic spine. There is disc space narrowing at T7-T8 and T8-T9. Lumbar spine: Minimal retrolisthesis at L1-L2. No additional subluxation. Vertebral body heights lumbar spine are maintained. No acute fracture. Mild disc degenerative change most prominent at L4-L5 and L5-S1 with minimal disc height loss, mild endplate proliferative change. Bilateral lower lumbar facet arthrosis. Minimal vascular calcifications. XR/XR lumbar spine 2-3V IMPRESSION: 1. No acute fracture or traumatic subluxation identified in the thoracic or lumbar spine. 2. Unchanged minimal anterior height loss of T11. 3. Changes consistent with DISH. 4. Mild disc degenerative change in the lower lumbar spine.
--- NOTE | ~2022-07-05 | XR_ITS ---
EXAMINATION: XR CHEST CLINICAL INFORMATION: Fall 2 weeks ago COMPARISON: Chest x-ray 10/23/2019 TECHNIQUE: 2 views of the chest were obtained. FINDINGS: Mild linear streaky opacities in the left lower lung are consistent with mild subsegmental atelectasis. No airspace consolidation. No pleural effusion or pneumothorax identified. Cardiomediastinal silhouette is unchanged and within normal limits. No evidence of pulmonary edema. No acute osseous injury. Mild height loss of a lower thoracic vertebral body is unchanged since chest x-ray 05/02/2019. XR/XR chest 2V IMPRESSION: Mild left basilar subsegmental atelectasis. No acute pulmonary process.
--- NOTE | ~2022-07-05 | CT_ITS ---
EXAMINATION: NONCONTRAST HEAD CT NONCONTRAST CERVICAL SPINE CT INDICATION INFORMATION: Fall with head injury 2 weeks ago COMPARISON: Head and C-spine CT 09/02/2018 TECHNIQUE: Separate noncontrast CT examinations of the head and cervical spine were performed. Coronal and sagittal images were created for each examination at the technologist workstation. This CT examination was performed using dose optimization techniques as appropriate, variously including the following: *Automated exposure control *Adjustment of mA and/or kV according to patient size (this includes techniques or standardized protocols for targeted exams where dose is matched to indication/reason for exam; i.e. extremities or head) *Use of iterative reconstruction technique DLP: 1555 mGy-cm FINDINGS: HEAD: No intra or extra-axial fluid collection, hemorrhage, or mass. No ventriculomegaly. No midline shift or herniation. Basal cisterns are patent. Jacobson-white matter differentiation is maintained. No territorial encephalomalacia. Proportional prominence of the ventricles and sulcal spaces is consistent with mild volume loss. There is no abnormal attenuation within the brain parenchyma. Small 1 cm left posterior scalp nodule, indeterminate, likely a cyst. No calvarial fracture. This mild mucosal thickening in the sphenoid sinuses. Partial opacification of a few inferior right mastoid air cells, nonspecific. Remainder of the paranasal sinuses and left mastoid air cells are normally aerated. CERVICAL SPINE: Alignment: Minimal grade 1 anterolisthesis at C3-C4 likely due to facet arthrosis, unchanged. Straightening of the normal cervical lordosis. Vertebra: The T1 vertebral body is not included in the [id number]. No acute fractures identified in the cervical spine. Slightly suboptimal assessment of the lower cervical vertebral bodies due to quantum mottle/photon starvation. No acute fracture. No prevertebral soft tissue swelling. Degenerative disc disease: Moderate cervical spondylosis at C6-C7. Otherwise, moderate disc degenerative changes in the cervical spine. Multilevel bilateral facet arthrosis Other findings: Visualized portion of the thyroid gland is grossly unremarkable. No lymphadenopathy in the [id number]. Lung apices were not included in the [id number] on this exam. CT/CT head/brain wo IV con IMPRESSION: 1. No intracranial hemorrhage or calvarial fracture. 2. No traumatic subluxation or acute cervical spine fracture.
--- NOTE | ~2022-07-05 | XR_ITS ---
EXAMINATION: XR lumbar spine 2-3V, XR thoracic spine 3V CLINICAL INFORMATION: Reason for Exam s/p fall c back pain COMPARISON: Thoracic spine radiographs 01/04/2019, CT abdomen and pelvis 10/22/2020 TECHNIQUE: AP, lateral, swimmer's lateral view thoracic spine; 3 views lumbosacral spine FINDINGS: Thoracic spine: Normal alignment of the thoracic spine. No subluxation. Minimal anterior height loss of T11 is unchanged. Vertebral body heights otherwise maintained. Changes of underlying DISH with partial anterior longitudinal ligament ossification and bridging osteophytes noted in the thoracic spine. There is disc space narrowing at T7-T8 and T8-T9. Lumbar spine: Minimal retrolisthesis at L1-L2. No additional subluxation. Vertebral body heights lumbar spine are maintained. No acute fracture. Mild disc degenerative change most prominent at L4-L5 and L5-S1 with minimal disc height loss, mild endplate proliferative change. Bilateral lower lumbar facet arthrosis. Minimal vascular calcifications. XR/XR thoracic spine 3V IMPRESSION: 1. No acute fracture or traumatic subluxation identified in the thoracic or lumbar spine. 2. Unchanged minimal anterior height loss of T11. 3. Changes consistent with DISH. 4. Mild disc degenerative change in the lower lumbar spine.
[2022-07-05 14:15] VITALS: BP 134/90; PULSE 52; RESP 18; TEMP 36.3; O2SAT 96; BMI 47.5
--- NOTE | 2022-07-05 14:15 | ED.FALL ---
HPI - Fall General Chief Complaint: Fall <CHARLOTTE Lyles - Last Filed: 07/05/22 14:19> Stated Complaint: BACK S/P FALL 12 DAYS AGO,INCREASING SINCE PER EMS <CHARLOTTE Lyles - Last Filed: 07/05/22 14:19> Time Seen by Provider: 07/05/22 16:05 <CHARLOTTE Lyles - Last Filed: 07/05/22 14:19> Source: patient <Esther Donahue NP - Last Filed: 07/05/22 16:39> Mode of arrival: ambulatory <Esther Donahue NP - Last Filed: 07/05/22 16:39> Limitations: no limitations <Esther Donahue NP - Last Filed: 07/05/22 16:39> History of Present Illness HPI Narrative: 71-year-old male with a past medical history of heart failure with reduced EF, NOEMI on CPAP, COPD, CAD, GERD, cardiomyopathy, persistent AFib on anticoagulation, and chronic back pain presents to the emergency department today after sustaining a fall 12 days ago when he fell on his knees as he walking out of the bathroom with increasing back pain since the fall. <Esther Donahue NP - Last Filed: 07/05/22 16:39> Related Data Home Medications: Home Medications Medication Instructions Recorded Confirmed multivitamin 1 tab PO DAILY 10/22/20 06/30/22 epinephrine 0.3 mg/0.3 mL 0.3 mg IM Q10M PRN 01/14/21 06/30/22 injection, auto-injector primidone 50 mg tablet 50 mg PO BID 07/09/21 06/30/22 acetaminophen 650 mg 1,300 mg PO DAILY 08/05/21 06/30/22 tablet,extended release omega-3 fatty acids 500 mg capsule 500 mg PO DAILY 08/05/21 06/30/22 warfarin 4 mg tablet 4 mg PO DAILY 10/28/21 06/30/22 bupropion HCl 100 mg tablet 100 mg PO TID 02/24/22 06/30/22 lorazepam 1 mg tablet 1.5 mg PO BEDTIME 02/24/22 06/30/22 cetirizine 10 mg tablet 10 mg PO DAILY 05/15/22 06/30/22 digoxin 250 mcg (0.25 mg) tablet 250 mcg PO DAILY 05/29/22 06/30/22 sertraline 100 mg tablet 200 mg PO DAILY 05/29/22 06/30/22 Previous Rx's Medication Instructions Recorded hydrocortisone 2.5 % topical cream 1 appl topical BID PRN skin 08/11/21 irritation 30 days #30 grams valsartan 40 mg tablet 20 mg PO QPM #30 tabs 12/09/21 carvedilol 12.5 mg tablet (Coreg) 12.5 mg PO BID #180 tabs 03/17/22 atorvastatin 10 mg tablet 10 mg PO BEDTIME #90 tabs 04/29/22 tizanidine 4 mg tablet 4 mg PO BEDTIME PRN Spasms 90 days 06/30/22 #90 tabs oxycodone 5 mg tablet 5 mg PO Q6H PRN pain #20 tabs 07/05/22 <CHARLOTTE Lyles - Last Filed: 07/05/22 14:19> Allergies/Adverse Reactions: Allergies Allergy/AdvReac Type Severity Reaction Status Date / Time iodine [IODINE] Allergy Intermediate HIVES, Verified 06/30/22 12:30 bloating latex [LATEX] Allergy Intermediate HIVES Verified 06/30/22 12:30 shellfish derived Allergy Intermediate ANAPHYLAXIS Verified 06/30/22 12:30 [SHELLFISH DERIVED] <CHARLOTTE Lyles - Last Filed: 07/05/22 14:19> Review of Systems Review of Systems: In addition to documented HPI above, the additional ROS was obtained: Constitutional: No Weight loss, No Fever, No Chills ENT/Mouth: No Ear Pain, No Nasal Congestion, No Sinus Pain, No Hoarseness, No sore throat, No Rhinorrhea, No Swallowing Difficulty Cardiovascular: No Chest Pain, No SOB Respiratory: No Cough, No Sputum, No Wheezing Gastrointestinal: No Nausea, No Vomiting, No Diarrhea, No Constipation, No Abdominal pain Genitourinary: No Dysuria, No Urinary Frequency, No Hematuria, No Urinary Incontinence/retention, No Urgency, No Flank Pain Musculoskeletal: No joint pain, No Joint Swelling Skin: No Skin Lesions, No rash Neuro: No Weakness, No Numbness, No Paresthesias <Esther Donahue NP - Last Filed: 07/05/22 16:39> Yes all other systems are reviewed and are negative <Esther Donahue NP - Last Filed: 07/05/22 16:39> [facility] Past Medical History Attestation statement: The following information was validated with the patient. <Esther Donahue NP - Last Filed: 07/05/22 16:39> Source: old records reviewed <Esther Donahue NP - Last Filed: 07/05/22 16:39> Medical History: Medical History CAD (coronary artery disease) Cardiomyopathy COPD (chronic obstructive pulmonary disease) Current use of anticoagulant therapy Diabetes Dyspnea Heart failure with reduced ejection fraction HLD (hyperlipidemia) HTN (hypertension) Morbid obesity Obstructive sleep apnea NOEMI on CPAP Persistent atrial fibrillation <CHARLOTTE Lyles - Last Filed: 07/05/22 14:19> Surgical History: Surgical History History of ankle surgery History of knee surgery <CHARLOTTE Lyles - Last Filed: 07/05/22 14:19> Family History Family History: Family History Father HTN (hypertension) Diabetes mellitus Cardiac disease Bone cancer Substance use disorder Mother HTN (hypertension) Lung cancer <CHARLOTTE Lyles - Last Filed: 07/05/22 14:19> Social History Social History: Social History Housing: Apartment Alcohol intake: never Patient Tobacco Use Status: Former Tobacco user Years Smoked: 30 yrs e-Cigarette/Vaping Use: Never Used Second Hand Smoke Exposure: No Advance Directives: No Advance Directives Information Provided: Yes service: No Current occupational status: disabled Cognitive needs: No Hearing needs: No Vision needs: Yes <CHARLOTTE Lyles - Last Filed: 07/05/22 14:19> Physical Exam Vital Signs: Vital Signs: Last Vital Signs Temp 97.4 F 07/05/22 14:15 Pulse 52 07/05/22 14:15 Resp 18 07/05/22 14:15 BP 134/90 H 07/05/22 14:15 Pulse Ox 96 07/05/22 14:15 O2 Del Method 07/05/22 14:15 BMI result Body Mass Index 47.5 <CHARLOTTE Lyles - Last Filed: 07/05/22 14:19> Vital Signs: Last Vital Signs Temp 97.4 F 07/05/22 14:15 Pulse 52 07/05/22 14:15 Resp 18 07/05/22 14:15 BP 134/90 H 07/05/22 14:15 Pulse Ox 96 07/05/22 14:15 O2 Del Method 07/05/22 14:15 BMI result Body Mass Index 47.5 <Esther Donahue NP - Last Filed: 07/05/22 16:39> Vital Signs: Last Vital Signs Temp 97.4 F 07/05/22 14:15 Pulse 52 07/05/22 14:15 Resp 18 07/05/22 14:15 BP 134/90 H 07/05/22 14:15 Pulse Ox 96 07/05/22 14:15 O2 Del Method 07/05/22 14:15 BMI result Body Mass Index 47.5 <CHARLOTTE Pinto - Last Filed: 07/05/22 18:20> Const: General: cooperative, alert and awake <Esther Donahue NP - Last Filed: 07/05/22 16:39> Course Course Course Narrative: RME-14:15PM - 71-year-old male who is a poor historian presenting to the ED with complaints of a fall approximately 2 weeks ago when he was in his house in the bathroom reports he was walking out of the bathroom he just fell onto his knees. He does not know why he fell. Reports he hit his head on the floor. Did not lose consciousness. He reports it took an approximately 30 minutes to get back up. Since that fall he has been having pain from his shoulder blades all the way down his spine. On exam he is alert oriented x3. Not in any acute distress. Moving all extremities. In a wheelchair therefore gait not tested at this time. Although full range of motion of neck and upper extremities. No weakness noted on my exam. No obvious signs of trauma. Plan: Therefore at this time patient will be sent back to the waiting room to be evaluated in the ED at this time I ordered labs, EKG, CT scan of brain/cervical spine, chest x-ray, lumbar spine x-ray, thoracic spine x-ray, UA and COVID/RSV/flu swab. <CHARLOTTE Lyles - Last Filed: 07/05/22 14:19> E-14:15PM - 71-year-old male who is a poor historian presenting to the ED with complaints of a fall approximately 2 weeks ago when he was in his house in the bathroom reports he was walking out of the bathroom he just fell onto his knees. He does not know why he fell. Reports he hit his head on the floor. Did not lose consciousness. He reports it took an approximately 30 minutes to get back up. Since that fall he has been having pain from his shoulder blades all the way down his spine. On exam he is alert oriented x3. Not in any acute distress. Moving all extremities. In a wheelchair therefore gait not tested at this time. Although full range of motion of neck and upper extremities. No weakness noted on my exam. No obvious signs of trauma. Plan: Therefore at this time patient will be sent back to the waiting room to be evaluated in the ED at this time I ordered labs, EKG, CT scan of brain/cervical spine, chest x-ray, lumbar spine x-ray, thoracic spine x-ray, UA and COVID/RSV/flu swab. EXAMINATION: NONCONTRAST HEAD CT NONCONTRAST CERVICAL SPINE CT INDICATION INFORMATION: Fall with head injury 2 weeks ago COMPARISON: Head and C-spine CT 09/02/2018 TECHNIQUE: Separate noncontrast CT examinations of the head and cervical spine were performed. Coronal and sagittal images were created for each examination at the technologist workstation. This CT examination was performed using dose optimization techniques as appropriate, variously including the following: *Automated exposure control *Adjustment of mA and/or kV according to patient size (this includes techniques or standardized protocols for targeted exams where dose is matched to indication/reason for exam; i.e. extremities or head) *Use of iterative reconstruction technique DLP: 1555 mGy-cm FINDINGS: HEAD: No intra or extra-axial fluid collection, hemorrhage, or mass. No ventriculomegaly. No midline shift or herniation. Basal cisterns are patent. Jacobson-white matter differentiation is maintained. No territorial encephalomalacia. ?Proportional prominence of the ventricles and sulcal spaces is consistent with mild volume loss. There is no abnormal attenuation within the brain parenchyma. Small 1 cm left posterior scalp nodule, indeterminate, likely a cyst. No calvarial fracture. This mild mucosal thickening in the sphenoid sinuses. Partial opacification of a few inferior right mastoid air cells, nonspecific. Remainder of the paranasal sinuses and left mastoid air cells are normally aerated. CERVICAL SPINE: Alignment: Minimal grade 1 anterolisthesis at C3-C4 likely due to facet arthrosis, unchanged. Straightening of the normal cervical lordosis. Vertebra: The T1 vertebral body is not included in the [id number]. No acute fractures identified in the cervical spine. Slightly suboptimal assessment of the lower cervical vertebral bodies due to quantum mottle/photon starvation. No acute fracture. No prevertebral soft tissue swelling. Degenerative disc disease: Moderate cervical spondylosis at C6-C7. Otherwise, moderate disc degenerative changes in the cervical spine. Multilevel bilateral facet arthrosis Other findings: Visualized portion of the thyroid gland is grossly unremarkable. No lymphadenopathy in the [id number]. Lung apices were not included in the [id number] on this exam. CT/CT head/brain wo IV con IMPRESSION: 1.? No intracranial hemorrhage or calvarial fracture. 2.? No traumatic subluxation or acute cervical spine fracture. Dictated By: Misbah Mari Signed By: <Electronically signed by Sergey Mari in OV> 07/05/22 1532 DD/ 1452 TD/TT:? Trucking Manager: EXAMINATION: XR CHEST CLINICAL INFORMATION: Fall 2 weeks ago COMPARISON: Chest x-ray 10/23/2019 TECHNIQUE: 2 views of the chest were obtained. FINDINGS: Mild linear streaky opacities in the left lower lung are consistent with mild subsegmental atelectasis. No airspace consolidation. No pleural effusion or pneumothorax identified. Cardiomediastinal silhouette is unchanged and within normal limits. No evidence of pulmonary edema. No acute osseous injury. Mild height loss of a lower thoracic vertebral body is unchanged since chest x-ray 05/02/2019. XR/XR chest 2V IMPRESSION: Mild left basilar subsegmental atelectasis. No acute pulmonary process. ? Dictated By: Misbah Mari Signed By: <Electronically signed by Sergey Mari in OV> 07/05/22 1553 DD/ 1515 TD/TT:? Trucking Manager: EXAMINATION: XR lumbar spine 2-3V, XR thoracic spine 3V CLINICAL INFORMATION: Reason for Exam s/p fall c back pain COMPARISON: Thoracic spine radiographs 01/04/2019, CT abdomen and pelvis 10/22/2020 TECHNIQUE: AP, lateral, swimmer's lateral view thoracic spine; 3 views lumbosacral spine FINDINGS: Thoracic spine: Normal alignment of the thoracic spine. No subluxation. Minimal anterior height loss of T11 is unchanged. Vertebral body heights otherwise maintained. Changes of underlying DISH with partial anterior longitudinal ligament ossification and bridging osteophytes noted in the thoracic spine. There is disc space narrowing at T7-T8 and T8-T9. Lumbar spine: Minimal retrolisthesis at L1-L2. No additional subluxation. Vertebral body heights lumbar spine are maintained. No acute fracture. Mild disc degenerative change most prominent at L4-L5 and L5-S1 with minimal disc height loss, mild endplate proliferative change. Bilateral lower lumbar facet arthrosis. Minimal vascular calcifications. XR/XR lumbar spine 2-3V IMPRESSION: 1.? No acute fracture or traumatic subluxation identified in the thoracic or lumbar spine. 2.? Unchanged minimal anterior height loss of T11. 3.? Changes consistent with DISH. 4.? Mild disc degenerative change in the lower lumbar spine. ? Dictated By: Misbah Mari Signed By: <Electronically signed by Sergey Mari in OV> 07/05/22 1601 DD/ 1515 TD/TT:? Trucking Manager: <Esther Donahue NP - Last Filed: 07/05/22 16:39> Reevaluation(s) Reevaluation #1: I took over this case add 17:00 I reviewed the history and patient is complaining of right-sided low back pain after a fall with no other complaint with no numbness no weakness no tingling no radiation of the pain no incontinence no new chest pain or abdominal pain no changes to bowel or bladder Imaging workup was essentially negative lab work up showed an INR of 2.4, no other relevant blood work Patient responded very well to analgesics oxycodone and was able to stand up and walk in straight up and he said it is almost all gone in terms of his pain He was discharged ambulatory from the ER very improved <CHARLOTTE Pinto - Last Filed: 07/05/22 18:20> Medications Administered Discontinued Medications Generic Name Dose Route Start Last Admin Trade Name Freq PRN Reason Stop Dose Admin Oxycodone HCl 10 mg 07/05/22 17:06 07/05/22 17:15 Oxycodone Hcl Immed Release 5 Mg Tablet PO 07/05/22 17:07 10 mg ONCE ONE Administration <CHARLOTTE Lyles - Last Filed: 07/05/22 14:19> Medications Administered Discontinued Medications Generic Name Dose Route Start Last Admin Trade Name Freq PRN Reason Stop Dose Admin Oxycodone HCl 10 mg 07/05/22 17:06 07/05/22 17:15 Oxycodone Hcl Immed Release 5 Mg Tablet PO 07/05/22 17:07 10 mg ONCE ONE Administration <Esther Donahue NP - Last Filed: 07/05/22 16:39> Medications Administered Discontinued Medications Generic Name Dose Route Start Last Admin Trade Name Freq PRN Reason Stop Dose Admin Oxycodone HCl 10 mg 07/05/22 17:06 07/05/22 17:15 Oxycodone Hcl Immed Release 5 Mg Tablet PO 07/05/22 17:07 10 mg ONCE ONE Administration <CHARLOTTE Pinto - Last Filed: 07/05/22 18:20> Medical Decision Making Medical Decision Making MDM Narrative: 71-year-old male with a past medical history of heart failure with reduced EF, NOEMI on CPAP, COPD, CAD, GERD, cardiomyopathy, persistent AFib on anticoagulation, and chronic back pain presents to the emergency department today after sustaining a fall 12 days ago when he fell on his knees as he walking out of the bathroom with increasing back pain since the fall. CT cervical spine and head showing no intracranial hemorrhage or calvarial fracture, no traumatic subluxation or acute cervical spine fracture. Moderate cervical spondylosis at C6-C7, minimal grade 1 anterolisthesis at C3-C4 likely due to facet arthrosis, unchanged. Chest x-ray with mild left basilar subsegmental atelectasis, no acute pulmonary process. X-ray lumbar spine and thoracic spine showing no acute fracture traumatic subluxation identified in the thoracic or lumbar spine, unchanged minimal anterior height loss of T11, changes consistent with DISH, mild disc degenerative change in the lower lumbar spine. <Esther Donahue NP - Last Filed: 07/05/22 16:39> Lab Data Result Diagrams: : 07/05/22 16:49 07/05/22 16:49 <CHARLOTTE Lyles - Last Filed: 07/05/22 14:19> Labs: Lab Results 07/05/22 07/05/22 07/05/22 Range/Units 16:49 16:49 16:49 WBC 9.3 (4.8-10.8) X10*3/uL RBC 4.52 L (4.60-5.80) X10*6/uL Hgb 14.4 (14.0-18.0) g/dl Hct 42.5 (42.0-52.0) % MCV 94.0 (80.0-98.0) fL MCH 31.9 (27.0-33.0) pg MCHC 33.9 (31.0-36.0) g/dl RDW 12.1 (11.0-16.0) % Plt Count 209 (160-400) X10*3/uL MPV 11.0 (9.4-12.4) fL Immature Gran % (Auto) 0.2 (0.0-0.4) % Neut % (Auto) 73.8 H (45-73) % Lymph % (Auto) 17.2 L (20-40) % [place] % (Auto) 5.2 (2-11) % Eos % (Auto) 2.8 (0-4) % Baso % (Auto) 0.8 (0-2) % Lymph # (Auto) 1.6 (1.2-4.9) X10*3/uL [place] # (Auto) 0.5 (0.1-1.2) X10*3/uL Eos # (Auto) 0.3 (0.0-0.4) X10*3/uL Baso # (Auto) 0.1 (0.0-0.2) X10*3/uL Abs Immat Gran (auto) 0.02 (0.00-0.03) X10*3/uL Absolute Neuts (auto) 6.9 (2.0-8.3) x10*3/uL Absolute Nucleated RBC 0.000 (0.0-0.012) X10*3/uL Nucleated RBC % (auto) 0.0 (0.0-0.2) /100WBC PT INR Sodium 134 L (135-145) mmol/L Potassium 4.9 (3.3-5.1) mmol/L Chloride 101 (96-108) mmol/L Carbon Dioxide 24 (22-29) mmol/L Anion Gap 14 (12-20) BUN 13 (9-16) mg/dL Creatinine 0.85 (0.5-1.4) mg/dL Estim Creat Clear Calc 127.6 Estimated GFR > 60 Random Glucose 219 H (60-115) mg/dL Calcium 8.6 (8.4-10.2) mg/dL Magnesium 2.0 (1.6-2.6) mg/dL Total Bilirubin 0.8 (0.0-1.0) mg/dL AST 24 (5-37) U/L ALT 24 (0-40) U/L Alkaline Phosphatase 64 (39-117) U/L Total Creatine Kinase 89 (38-174) U/L Total Protein 6.6 (6.5-8.0) g/dL Albumin 4.1 (3.5-5.0) g/dL Influenza Type A (PCR) NEGATIVE (Negative) Influenza Type B (PCR) NEGATIVE (Negative) RSV RNA Qual (PCR) NEGATIVE (Negative) SARS-CoV-2 RNA (RT-PCR) NEGATIVE (Negative) 07/05/22 07/05/22 Range/Units 17:33 17:47 WBC (4.8-10.8) X10*3/uL RBC (4.60-5.80) X10*6/uL Hgb (14.0-18.0) g/dl Hct (42.0-52.0) % MCV (80.0-98.0) fL MCH (27.0-33.0) pg MCHC (31.0-36.0) g/dl RDW (11.0-16.0) % Plt Count (160-400) X10*3/uL MPV (9.4-12.4) fL Immature Gran % (Auto) (0.0-0.4) % Neut % (Auto) (45-73) % Lymph % (Auto) (20-40) % [place] % (Auto) (2-11) % Eos % (Auto) (0-4) % Baso % (Auto) (0-2) % Lymph # (Auto) (1.2-4.9) X10*3/uL [place] # (Auto) (0.1-1.2) X10*3/uL Eos # (Auto) (0.0-0.4) X10*3/uL Baso # (Auto) (0.0-0.2) X10*3/uL Abs Immat Gran (auto) (0.00-0.03) X10*3/uL Absolute Neuts (auto) (2.0-8.3) x10*3/uL Absolute Nucleated RBC (0.0-0.012) X10*3/uL Nucleated RBC % (auto) (0.0-0.2) /100WBC PT Cancelled 28.2 H INR Cancelled 2.4 H Sodium (135-145) mmol/L Potassium (3.3-5.1) mmol/L Chloride (96-108) mmol/L Carbon Dioxide (22-29) mmol/L Anion Gap (12-20) BUN (9-16) mg/dL Creatinine (0.5-1.4) mg/dL Estim Creat Clear Calc Estimated GFR Random Glucose (60-115) mg/dL Calcium (8.4-10.2) mg/dL Magnesium (1.6-2.6) mg/dL Total Bilirubin (0.0-1.0) mg/dL AST (5-37) U/L ALT (0-40) U/L Alkaline Phosphatase (39-117) U/L Total Creatine Kinase (38-174) U/L Total Protein (6.5-8.0) g/dL Albumin (3.5-5.0) g/dL Influenza Type A (PCR) (Negative) Influenza Type B (PCR) (Negative) RSV RNA Qual (PCR) (Negative) SARS-CoV-2 RNA (RT-PCR) (Negative) <CHARLOTTE Lyles - Last Filed: 07/05/22 14:19> Lab Results 12/18/22 12/18/22 12/18/22 Range/Units 16:49 16:49 16:49 WBC 9.3 (4.8-10.8) X10*3/uL RBC 4.52 L (4.60-5.80) X10*6/uL Hgb 14.4 (14.0-18.0) g/dl Hct 42.5 (42.0-52.0) % MCV 94.0 (80.0-98.0) fL MCH 31.9 (27.0-33.0) pg MCHC 33.9 (31.0-36.0) g/dl RDW 12.1 (11.0-16.0) % Plt Count 209 (160-400) X10*3/uL MPV 11.0 (9.4-12.4) fL Immature Gran % (Auto) 0.2 (0.0-0.4) % Neut % (Auto) 73.8 H (45-73) % Lymph % (Auto) 17.2 L (20-40) % [place] % (Auto) 5.2 (2-11) % Eos % (Auto) 2.8 (0-4) % Baso % (Auto) 0.8 (0-2) % Lymph # (Auto) 1.6 (1.2-4.9) X10*3/uL [place] # (Auto) 0.5 (0.1-1.2) X10*3/uL Eos # (Auto) 0.3 (0.0-0.4) X10*3/uL Baso # (Auto) 0.1 (0.0-0.2) X10*3/uL Abs Immat Gran (auto) 0.02 (0.00-0.03) X10*3/uL Absolute Neuts (auto) 6.9 (2.0-8.3) x10*3/uL Absolute Nucleated RBC 0.000 (0.0-0.012) X10*3/uL Nucleated RBC % (auto) 0.0 (0.0-0.2) /100WBC PT INR Sodium 134 L (135-145) mmol/L Potassium 4.9 (3.3-5.1) mmol/L Chloride 101 (96-108) mmol/L Carbon Dioxide 24 (22-29) mmol/L Anion Gap 14 (12-20) BUN 13 (9-16) mg/dL Creatinine 0.85 (0.5-1.4) mg/dL Estim Creat Clear Calc 127.6 Estimated GFR > 60 Random Glucose 219 H (60-115) mg/dL Calcium 8.6 (8.4-10.2) mg/dL Magnesium 2.0 (1.6-2.6) mg/dL Total Bilirubin 0.8 (0.0-1.0) mg/dL AST 24 (5-37) U/L ALT 24 (0-40) U/L Alkaline Phosphatase 64 (39-117) U/L Total Creatine Kinase 89 (38-174) U/L Total Protein 6.6 (6.5-8.0) g/dL Albumin 4.1 (3.5-5.0) g/dL Influenza Type A (PCR) NEGATIVE (Negative) Influenza Type B (PCR) NEGATIVE (Negative) RSV RNA Qual (PCR) NEGATIVE (Negative) SARS-CoV-2 RNA (RT-PCR) NEGATIVE (Negative) 07/05/22 07/05/22 Range/Units 17:33 17:47 WBC (4.8-10.8) X10*3/uL RBC (4.60-5.80) X10*6/uL Hgb (14.0-18.0) g/dl Hct (42.0-52.0) % MCV (80.0-98.0) fL MCH (27.0-33.0) pg MCHC (31.0-36.0) g/dl RDW (11.0-16.0) % Plt Count (160-400) X10*3/uL MPV (9.4-12.4) fL Immature Gran % (Auto) (0.0-0.4) % Neut % (Auto) (45-73) % Lymph % (Auto) (20-40) % [place] % (Auto) (2-11) % Eos % (Auto) (0-4) % Baso % (Auto) (0-2) % Lymph # (Auto) (1.2-4.9) X10*3/uL [place] # (Auto) (0.1-1.2) X10*3/uL Eos # (Auto) (0.0-0.4) X10*3/uL Baso # (Auto) (0.0-0.2) X10*3/uL Abs Immat Gran (auto) (0.00-0.03) X10*3/uL Absolute Neuts (auto) (2.0-8.3) x10*3/uL Absolute Nucleated RBC (0.0-0.012) X10*3/uL Nucleated RBC % (auto) (0.0-0.2) /100WBC PT Cancelled 28.2 H INR Cancelled 2.4 H Sodium (135-145) mmol/L Potassium (3.3-5.1) mmol/L Chloride (96-108) mmol/L Carbon Dioxide (22-29) mmol/L Anion Gap (12-20) BUN (9-16) mg/dL Creatinine (0.5-1.4) mg/dL Estim Creat Clear Calc Estimated GFR Random Glucose (60-115) mg/dL Calcium (8.4-10.2) mg/dL Magnesium (1.6-2.6) mg/dL Total Bilirubin (0.0-1.0) mg/dL AST (5-37) U/L ALT (0-40) U/L Alkaline Phosphatase (39-117) U/L Total Creatine Kinase (38-174) U/L Total Protein (6.5-8.0) g/dL Albumin (3.5-5.0) g/dL Influenza Type A (PCR) (Negative) Influenza Type B (PCR) (Negative) RSV RNA Qual (PCR) (Negative) SARS-CoV-2 RNA (RT-PCR) (Negative) <Esther Donahue NP - Last Filed: 07/05/22 16:39> Lab Results 07/05/22 07/05/22 07/05/22 Range/Units 16:49 16:49 16:49 WBC 9.3 (4.8-10.8) X10*3/uL RBC 4.52 L (4.60-5.80) X10*6/uL Hgb 14.4 (14.0-18.0) g/dl Hct 42.5 (42.0-52.0) % MCV 94.0 (80.0-98.0) fL MCH 31.9 (27.0-33.0) pg MCHC 33.9 (31.0-36.0) g/dl RDW 12.1 (11.0-16.0) % Plt Count 209 (160-400) X10*3/uL MPV 11.0 (9.4-12.4) fL Immature Gran % (Auto) 0.2 (0.0-0.4) % Neut % (Auto) 73.8 H (45-73) % Lymph % (Auto) 17.2 L (20-40) % [place] % (Auto) 5.2 (2-11) % Eos % (Auto) 2.8 (0-4) % Baso % (Auto) 0.8 (0-2) % Lymph # (Auto) 1.6 (1.2-4.9) X10*3/uL [place] # (Auto) 0.5 (0.1-1.2) X10*3/uL Eos # (Auto) 0.3 (0.0-0.4) X10*3/uL Baso # (Auto) 0.1 (0.0-0.2) X10*3/uL Abs Immat Gran (auto) 0.02 (0.00-0.03) X10*3/uL Absolute Neuts (auto) 6.9 (2.0-8.3) x10*3/uL Absolute Nucleated RBC 0.000 (0.0-0.012) X10*3/uL Nucleated RBC % (auto) 0.0 (0.0-0.2) /100WBC PT INR Sodium 134 L (135-145) mmol/L Potassium 4.9 (3.3-5.1) mmol/L Chloride 101 (96-108) mmol/L Carbon Dioxide 24 (22-29) mmol/L Anion Gap 14 (12-20) BUN 13 (9-16) mg/dL Creatinine 0.85 (0.5-1.4) mg/dL Estim Creat Clear Calc 127.6 Estimated GFR > 60 Random Glucose 219 H (60-115) mg/dL Calcium 8.6 (8.4-10.2) mg/dL Magnesium 2.0 (1.6-2.6) mg/dL Total Bilirubin 0.8 (0.0-1.0) mg/dL AST 24 (5-37) U/L ALT 24 (0-40) U/L Alkaline Phosphatase 64 (39-117) U/L Total Creatine Kinase 89 (38-174) U/L Total Protein 6.6 (6.5-8.0) g/dL Albumin 4.1 (3.5-5.0) g/dL Influenza Type A (PCR) NEGATIVE (Negative) Influenza Type B (PCR) NEGATIVE (Negative) RSV RNA Qual (PCR) NEGATIVE (Negative) SARS-CoV-2 RNA (RT-PCR) NEGATIVE (Negative) 07/05/22 07/05/22 Range/Units 17:33 17:47 WBC (4.8-10.8) X10*3/uL RBC (4.60-5.80) X10*6/uL Hgb (14.0-18.0) g/dl Hct (42.0-52.0) % MCV (80.0-98.0) fL MCH (27.0-33.0) pg MCHC (31.0-36.0) g/dl RDW (11.0-16.0) % Plt Count (160-400) X10*3/uL MPV (9.4-12.4) fL Immature Gran % (Auto) (0.0-0.4) % Neut % (Auto) (45-73) % Lymph % (Auto) (20-40) % [place] % (Auto) (2-11) % Eos % (Auto) (0-4) % Baso % (Auto) (0-2) % Lymph # (Auto) (1.2-4.9) X10*3/uL [place] # (Auto) (0.1-1.2) X10*3/uL Eos # (Auto) (0.0-0.4) X10*3/uL Baso # (Auto) (0.0-0.2) X10*3/uL Abs Immat Gran (auto) (0.00-0.03) X10*3/uL Absolute Neuts (auto) (2.0-8.3) x10*3/uL Absolute Nucleated RBC (0.0-0.012) X10*3/uL Nucleated RBC % (auto) (0.0-0.2) /100WBC PT Cancelled 28.2 H INR Cancelled 2.4 H Sodium (135-145) mmol/L Potassium (3.3-5.1) mmol/L Chloride (96-108) mmol/L Carbon Dioxide (22-29) mmol/L Anion Gap (12-20) BUN (9-16) mg/dL Creatinine (0.5-1.4) mg/dL Estim Creat Clear Calc Estimated GFR Random Glucose (60-115) mg/dL Calcium (8.4-10.2) mg/dL Magnesium (1.6-2.6) mg/dL Total Bilirubin (0.0-1.0) mg/dL AST (5-37) U/L ALT (0-40) U/L Alkaline Phosphatase (39-117) U/L Total Creatine Kinase (38-174) U/L Total Protein (6.5-8.0) g/dL Albumin (3.5-5.0) g/dL Influenza Type A (PCR) (Negative) Influenza Type B (PCR) (Negative) RSV RNA Qual (PCR) (Negative) SARS-CoV-2 RNA (RT-PCR) (Negative) <CHARLOTTE Pinto - Last Filed: 07/05/22 18:20> Discharge Plan Discharge Clinical Impression: Back strain, Low back pain <CHARLOTTE Lyles - Last Filed: 07/05/22 14:19> Patient Disposition: Home, Self-Care <CHARLOTTE Lyles - Last Filed: 07/05/22 14:19> Additional Instructions: your INR was 2.4 X-rays and CT scans today did not show any broken bones or emergency findings Pain was improved with the Percocet Follow with primary doctor Return any time for weakness incontinence severe out of control pain fever any worse condition or any concerns <CHARLOTTE Lyles - Last Filed: 07/05/22 14:19> Prescriptions: New oxycodone 5 mg tablet 5 mg PO Q6H PRN (Reason: pain) Qty: 20 0RF Rx Instructions: Partial Fill upon patient request. No Action omega-3 fatty acids 500 mg capsule 500 mg PO DAILY acetaminophen 650 mg tablet extended release 1,300 mg PO DAILY Rx Instructions: TAKES IN AM hydrocortisone 2.5 % cream 1 appl topical BID PRN (Reason: skin irritation) 30 Days Qty: 30 2RF bupropion HCl 100 mg tablet 100 mg PO TID lorazepam 1 mg tablet 1.5 mg PO BEDTIME atorvastatin 10 mg tablet 10 mg PO BEDTIME Qty: 90 3RF multivitamin Tablet 1 tab PO DAILY tizanidine 4 mg tablet 4 mg PO BEDTIME PRN (Reason: Spasms) 90 Days Qty: 90 0RF epinephrine 0.3 mg/0.3 mL auto-injector 0.3 mg IM Q10M PRN Rx Instructions: for 2 doses primidone 50 mg tablet 50 mg PO BID cetirizine 10 mg tablet 10 mg PO DAILY valsartan 40 mg tablet 20 mg PO QPM Qty: 30 5RF warfarin 4 mg tablet 4 mg PO DAILY Protocol: Dose Management Condition: Wednesday (Week One) Dose/Route: 4 mg Instruction: 1 x 4 mg tablet Condition: Wednesday Dose/Route: 4 mg Instruction: 1 x 4 mg tablet Condition: Wednesday Dose/Route: 6 mg Instruction: 1.5 x 4 mg tablets Condition: Wednesday Dose/Route: 4 mg Instruction: 1 x 4 mg tablet Condition: Dose/Route: 6 mg Instruction: 1.5 x 4 mg tablets Condition: Wednesday Dose/Route: 4 mg Instruction: 1 x 4 mg tablet Condition: Wednesday Dose/Route: 6 mg Instruction: 1.5 x 4 mg tablets Condition: Wednesday (Week Two) Dose/Route: 4 mg Instruction: 1 x 4 mg tablet Condition: Wednesday Dose/Route: 4 mg Instruction: 1 x 4 mg tablet Condition: Wednesday Dose/Route: 6 mg Instruction: 1.5 x 4 mg tablets Condition: Wednesday Dose/Route: 4 mg Instruction: 1 x 4 mg tablet Condition: Dose/Route: 6 mg Instruction: 1.5 x 4 mg tablets Condition: Wednesday Dose/Route: 4 mg Instruction: 1 x 4 mg tablet Condition: Wednesday Dose/Route: 6 mg Instruction: 1.5 x 4 mg tablets Protocol Text: Adjustment Start Date: Wednesday06/19/22 INR Value: 2.2 INR Date: 06/19/22 Recheck Date: 07/17/22 Additional Instructions: cont same diet that works for you carvedilol [Coreg] 12.5 mg tablet 12.5 mg PO BID Qty: 180 1RF Rx Instructions: must administer with a meal/food sertraline 100 mg tablet 200 mg PO DAILY digoxin 250 mcg (0.25 mg) tablet 250 mcg PO DAILY <CHARLOTTE Lyles - Last Filed: 07/05/22 14:19> Interventions: ED Discharge Assessment Last Done: 07/05/22 18:30 <CHARLOTTE Lyles - Last Filed: 07/05/22 14:19> Discharge Date/Time: 07/05/22 18:30 <CHARLOTTE Lyles - Last Filed: 07/05/22 14:19>
--- NOTE | 2022-07-05 14:17 | ECG_ITS ---
Test Reason : cp Blood Pressure : / mmHG Vent. Rate : 050 BPM Atrial Rate : 000 BPM P-R Int : 000 ms QRS Dur : 100 ms QT Int : 474 ms P-R-T Axes : 000 -31 009 degrees QTc Int : 432 ms Atrial fibrillation with slow ventricular response Left axis deviation Low voltage QRS Cannot rule out Anterior infarct (cited on or before 22-OCT-2020) Abnormal ECG When compared with ECG of 22-OCT-2020 14:07, Vent. rate has decreased BY 41 BPM QT has shortened Referred By: Samantha Kelley Electronically Signed By:Campbell Petty
--- NOTE | 2022-07-05 16:56 | PC.NURSE ---
took ekg. keyon blood and sars/flu/rsv swab. sent to lab. advised pt to give us a urine sample. He said he would need to drink a lot so gave him a pitcher of water. Letf a urinal and cleaning wipe for clean catch
[2022-07-05 16:57] LABS: MANUAL DIFF FLAG NO
[2022-07-05 16:59] LABS: Basophils Absolute Auto 0.1 X10*3/uL (0.0-0.2); Basophils Percent Auto 0.8 % (0-2); Eosinophils Absolute Auto 0.3 X10*3/uL (0.0-0.4); Eosinophils Percent Auto 2.8 % (0-4); Hematocrit 42.5 % (42.0-52.0); Hemoglobin 14.4 g/dl (14.0-18.0); Imm Gran Abs Auto 0.02 X10*3/uL (0.00-0.03); Imm Gran Pct Auto 0.2 % (0.0-0.4); Lymphocytes Absolute Auto 1.6 X10*3/uL (1.2-4.9); Lymphocytes Percent Auto 17.2 % (20-40); Mean Corpuscular HGB Conc 33.9 g/dl (31.0-36.0); Mean Corpuscular Hemoglobin 31.9 pg (27.0-33.0); Monocytes Absolute Auto 0.5 X10*3/uL (0.1-1.2); Monocytes Percent Auto 5.2 % (2-11); Neutrophils Absolute Auto 6.9 x10*3/uL (2.0-8.3); Neutrophils Percent Auto 73.8 % (45-73); Platelet Count 209 X10*3/uL (160-400); Red Blood Count 4.52 X10*6/uL (4.60-5.80); Red Cell Distribution Width 12.1 % (11.0-16.0); White Blood Count 9.3 X10*3/uL (4.8-10.8)
[2022-07-05] MEDS: oxyCODONE HCl Immed Release 5 MG TABLET 10 MG PO (17:15)
--- NOTE | 2022-07-05 17:15 | ED_ITS ---
HPI - Fall General Chief Complaint: Fall Stated Complaint: BACK S/P FALL 12 DAYS AGO,INCREASING SINCE PER EMS Time Seen by Provider: 07/05/22 16:05 Source: patient Mode of arrival: ambulatory History of Present Illness HPI Narrative: patient complains of back pain mostly low back pain on the right side since a fall 1 week ago, there was initially mild back pain which has gotten worse and worse over the last days, it hurts with movement and bending but he is comfortable when he finds a relaxed position He denies any incontinence he has no dysuria he has no new weakness or numbness, pain does not radiate there is no paresthesias or tingling He denies any chest pain or abdominal pain, he denies any neck pain Related Data Home Medications Medication Instructions Recorded Confirmed multivitamin 1 tab PO DAILY 10/22/20 07/17/22 epinephrine 0.3 mg/0.3 mL 0.3 mg IM Q10M PRN 01/14/21 07/17/22 injection, auto-injector primidone 50 mg tablet 50 mg PO BID 07/09/21 07/17/22 acetaminophen 650 mg 1,300 mg PO DAILY 08/05/21 07/17/22 tablet,extended release omega-3 fatty acids 500 mg capsule 500 mg PO DAILY 08/05/21 07/17/22 warfarin 4 mg tablet 4 mg PO DAILY 10/28/21 07/17/22 bupropion HCl 100 mg tablet 100 mg PO TID 02/24/22 07/17/22 lorazepam 1 mg tablet 1.5 mg PO BEDTIME 02/24/22 07/17/22 cetirizine 10 mg tablet 10 mg PO DAILY 05/15/22 07/17/22 digoxin 250 mcg (0.25 mg) tablet 250 mcg PO DAILY 05/29/22 07/17/22 sertraline 100 mg tablet 200 mg PO DAILY 05/29/22 07/17/22 Previous Rx's Medication Instructions Recorded hydrocortisone 2.5 % topical cream 1 appl topical BID PRN skin 08/11/21 irritation 30 days #30 grams valsartan 40 mg tablet 20 mg PO QPM #30 tabs 12/09/21 carvedilol 12.5 mg tablet (Coreg) 12.5 mg PO BID #180 tabs 03/17/22 atorvastatin 10 mg tablet 10 mg PO BEDTIME #90 tabs 04/29/22 tizanidine 4 mg tablet 4 mg PO BEDTIME PRN Spasms 90 days 07/17/22 #90 tabs Allergies Allergy/AdvReac Type Severity Reaction Status Date / Time iodine [IODINE] Allergy Intermediate HIVES, Verified 07/17/22 10:06 bloating latex [LATEX] Allergy Intermediate HIVES Verified 07/17/22 10:06 shellfish derived Allergy Intermediate ANAPHYLAXIS Verified 07/17/22 10:06 [SHELLFISH DERIVED] Review of Systems Review of Systems: positive for back pain with movement Negative is no loss of consciousness no headache no nausea or vomiting no vision changes no neck pain no numbness weakness or tingling no chest pain no shortness of breath no abdominal pain no nausea or vomiting no dysuria no frequency no incontinence no changes to bowel or bladder, no new weakness no numbness Yes all other systems are reviewed and are negative [facility] Past Medical History [facility] Narrative: patient is on Coumadin Source: nursing notes reviewed Medical History CAD (coronary artery disease) Cardiomyopathy COPD (chronic obstructive pulmonary disease) Current use of anticoagulant therapy Diabetes Dyspnea Heart failure with reduced ejection fraction HLD (hyperlipidemia) HTN (hypertension) Morbid obesity Obstructive sleep apnea NOEMI on CPAP Persistent atrial fibrillation Surgical History History of ankle surgery History of knee surgery Family History Family History Father HTN (hypertension) Diabetes mellitus Cardiac disease Bone cancer Substance use disorder Mother HTN (hypertension) Lung cancer Social History Social History Housing: Apartment Alcohol intake: never Patient Tobacco Use Status: Former Tobacco user Years Smoked: 30 yrs e-Cigarette/Vaping Use: Never Used Second Hand Smoke Exposure: No service: No Current occupational status: disabled Cognitive needs: No Hearing needs: No Vision needs: Yes Physical Exam Vital Signs: Vital Signs: Last Vital Signs Temp 97.4 F 07/05/22 14:15 Pulse 52 07/05/22 14:15 Resp 18 07/05/22 14:15 BP 134/90 H 07/05/22 14:15 Pulse Ox 96 07/05/22 14:15 O2 Del Method 07/05/22 14:15 BMI result Body Mass Index 47.5 general appearance is no acute distress Head is normocephalic atraumatic Pupils equal round reactive to light extraocular motions are intact There is no raccoon eyes there is no Finnegan sign The neck is supple and nontender The chest has no tenderness of sternum or ribs Lung sounds are clear no respiratory distress Abdomen soft nontender The back had tenderness in the soft tissue paraspinal area of the right lower lumbar region there was no focal bony tenderness, pain is easily reproduced with movement and finding a comfortable position alleviates the pain Extremities full range of motion x4 Neuro patient is able to walk with a limp due to pain when he puts weight on the leg in the right lumbar region of his back, interaction both comprehension and expression were normal, motor was 5/5 x4 and sensation was intact and symmetrical Course Course Course Narrative: ECG was done which showed a rate of 50, AFib with a slow response, there are no ST elevations no acute ischemic changes Comparison with old EKG no acute changes Head CT done today no bleed no skull fracture no acute findings CT cervical spine no acute fractures or dislocations Chest x-ray showed mild left basilar atelectasis no acute pulmonary process Lumbar spine x-ray no acute fracture or subluxation in lumbar or thoracic spines Patient was treated with oxycodone analgesics and felt improved and was discharged with diagnosis of musculoskeletal back strain, with no neurologic deficit no incontinence, no fractures Medications Administered Discontinued Medications Generic Name Dose Route Start Last Admin Trade Name Freq PRN Reason Stop Dose Admin Oxycodone HCl 10 mg 07/05/22 17:06 07/05/22 17:15 Oxycodone Hcl Immed Release 5 Mg Tablet PO 07/05/22 17:07 10 mg ONCE ONE Administration Medical Decision Making Lab Data MDM Lab Attestation statement: I reviewed the patient's lab results. 07/05/22 16:49 07/05/22 16:49 Labs: Lab Results 07/05/22 07/05/22 07/05/22 Range/Units 16:49 16:49 16:49 WBC 9.3 (4.8-10.8) X10*3/uL RBC 4.52 L (4.60-5.80) X10*6/uL Hgb 14.4 (14.0-18.0) g/dl Hct 42.5 (42.0-52.0) % MCV 94.0 (80.0-98.0) fL MCH 31.9 (27.0-33.0) pg MCHC 33.9 (31.0-36.0) g/dl RDW 12.1 (11.0-16.0) % Plt Count 209 (160-400) X10*3/uL MPV 11.0 (9.4-12.4) fL Immature Gran % (Auto) 0.2 (0.0-0.4) % Neut % (Auto) 73.8 H (45-73) % Lymph % (Auto) 17.2 L (20-40) % [place] % (Auto) 5.2 (2-11) % Eos % (Auto) 2.8 (0-4) % Baso % (Auto) 0.8 (0-2) % Lymph # (Auto) 1.6 (1.2-4.9) X10*3/uL [place] # (Auto) 0.5 (0.1-1.2) X10*3/uL Eos # (Auto) 0.3 (0.0-0.4) X10*3/uL Baso # (Auto) 0.1 (0.0-0.2) X10*3/uL Abs Immat Gran (auto) 0.02 (0.00-0.03) X10*3/uL Absolute Neuts (auto) 6.9 (2.0-8.3) x10*3/uL Absolute Nucleated RBC 0.000 (0.0-0.012) X10*3/uL Nucleated RBC % (auto) 0.0 (0.0-0.2) /100WBC PT INR Sodium 134 L (135-145) mmol/L Potassium 4.9 (3.3-5.1) mmol/L Chloride 101 (96-108) mmol/L Carbon Dioxide 24 (22-29) mmol/L Anion Gap 14 (12-20) BUN 13 (9-16) mg/dL Creatinine 0.85 (0.5-1.4) mg/dL Estim Creat Clear Calc 127.6 Estimated GFR > 60 Random Glucose 219 H (60-115) mg/dL Calcium 8.6 (8.4-10.2) mg/dL Magnesium 2.0 (1.6-2.6) mg/dL Total Bilirubin 0.8 (0.0-1.0) mg/dL AST 24 (5-37) U/L ALT 24 (0-40) U/L Alkaline Phosphatase 64 (39-117) U/L Total Creatine Kinase 89 (38-174) U/L Total Protein 6.6 (6.5-8.0) g/dL Albumin 4.1 (3.5-5.0) g/dL Influenza Type A (PCR) NEGATIVE (Negative) Influenza Type B (PCR) NEGATIVE (Negative) RSV RNA Qual (PCR) NEGATIVE (Negative) SARS-CoV-2 RNA (RT-PCR) NEGATIVE (Negative) 07/05/22 07/05/22 Range/Units 17:33 17:47 WBC (4.8-10.8) X10*3/uL RBC (4.60-5.80) X10*6/uL Hgb (14.0-18.0) g/dl Hct (42.0-52.0) % MCV (80.0-98.0) fL MCH (27.0-33.0) pg MCHC (31.0-36.0) g/dl RDW (11.0-16.0) % Plt Count (160-400) X10*3/uL MPV (9.4-12.4) fL Immature Gran % (Auto) (0.0-0.4) % Neut % (Auto) (45-73) % Lymph % (Auto) (20-40) % [place] % (Auto) (2-11) % Eos % (Auto) (0-4) % Baso % (Auto) (0-2) % Lymph # (Auto) (1.2-4.9) X10*3/uL [place] # (Auto) (0.1-1.2) X10*3/uL Eos # (Auto) (0.0-0.4) X10*3/uL Baso # (Auto) (0.0-0.2) X10*3/uL Abs Immat Gran (auto) (0.00-0.03) X10*3/uL Absolute Neuts (auto) (2.0-8.3) x10*3/uL Absolute Nucleated RBC (0.0-0.012) X10*3/uL Nucleated RBC % (auto) (0.0-0.2) /100WBC PT Cancelled 28.2 H INR Cancelled 2.4 H Sodium (135-145) mmol/L Potassium (3.3-5.1) mmol/L Chloride (96-108) mmol/L Carbon Dioxide (22-29) mmol/L Anion Gap (12-20) BUN (9-16) mg/dL Creatinine (0.5-1.4) mg/dL Estim Creat Clear Calc Estimated GFR Random Glucose (60-115) mg/dL Calcium (8.4-10.2) mg/dL Magnesium (1.6-2.6) mg/dL Total Bilirubin (0.0-1.0) mg/dL AST (5-37) U/L ALT (0-40) U/L Alkaline Phosphatase (39-117) U/L Total Creatine Kinase (38-174) U/L Total Protein (6.5-8.0) g/dL Albumin (3.5-5.0) g/dL Influenza Type A (PCR) (Negative) Influenza Type B (PCR) (Negative) RSV RNA Qual (PCR) (Negative) SARS-CoV-2 RNA (RT-PCR) (Negative) Discharge Plan Discharge Clinical Impression: Back strain, Low back pain Patient Disposition: Home, Self-Care Additional Instructions: your INR was 2.4 X-rays and CT scans today did not show any broken bones or emergency findings Pain was improved with the Percocet Follow with primary doctor Return any time for weakness incontinence severe out of control pain fever any worse condition or any concerns Prescriptions: No Action omega-3 fatty acids 500 mg capsule 500 mg PO DAILY acetaminophen 650 mg tablet extended release 1,300 mg PO DAILY Rx Instructions: TAKES IN AM hydrocortisone 2.5 % cream 1 appl topical BID PRN (Reason: skin irritation) 30 Days Qty: 30 2RF bupropion HCl 100 mg tablet 100 mg PO TID lorazepam 1 mg tablet 1.5 mg PO BEDTIME atorvastatin 10 mg tablet 10 mg PO BEDTIME Qty: 90 3RF multivitamin Tablet 1 tab PO DAILY epinephrine 0.3 mg/0.3 mL auto-injector 0.3 mg IM Q10M PRN Rx Instructions: for 2 doses primidone 50 mg tablet 50 mg PO BID cetirizine 10 mg tablet 10 mg PO DAILY tizanidine 4 mg tablet 4 mg PO BEDTIME PRN (Reason: Spasms) 90 Days Qty: 90 0RF valsartan 40 mg tablet 20 mg PO QPM Qty: 30 5RF warfarin 4 mg tablet 4 mg PO DAILY Protocol: Dose Management Condition: Wednesday (Week One) Dose/Route: 4 mg Instruction: 1 x 4 mg tablet Condition: Wednesday Dose/Route: 4 mg Instruction: 1 x 4 mg tablet Condition: Wednesday Dose/Route: 6 mg Instruction: 1.5 x 4 mg tablets Condition: Wednesday Dose/Route: 4 mg Instruction: 1 x 4 mg tablet Condition: Dose/Route: 6 mg Instruction: 1.5 x 4 mg tablets Condition: Wednesday Dose/Route: 4 mg Instruction: 1 x 4 mg tablet Condition: Wednesday Dose/Route: 6 mg Instruction: 1.5 x 4 mg tablets Condition: Wednesday ( Two) Dose/Route: 4 mg Instruction: 1 x 4 mg tablet Condition: Wednesday Dose/Route: 4 mg Instruction: 1 x 4 mg tablet Condition: Wednesday Dose/Route: 6 mg Instruction: 1.5 x 4 mg tablets Condition: Wednesday Dose/Route: 4 mg Instruction: 1 x 4 mg tablet Condition: Dose/Route: 6 mg Instruction: 1.5 x 4 mg tablets Condition: Wednesday Dose/Route: 4 mg Instruction: 1 x 4 mg tablet Condition: Wednesday Dose/Route: 6 mg Instruction: 1.5 x 4 mg tablets Protocol Text: Adjustment Start Date: Wednesday07/17/22 INR Value: 2.0 INR Date: 07/17/22 Recheck Date: 08/14/22 Additional Instructions: EAT ORANGE AND REDS TO HELP RAISE THE INR carvedilol [Coreg] 12.5 mg tablet 12.5 mg PO BID Qty: 180 1RF Rx Instructions: must administer with a meal/food sertraline 100 mg tablet 200 mg PO DAILY digoxin 250 mcg (0.25 mg) tablet 250 mcg PO DAILY Interventions: ED Discharge Assessment Last Done: 07/05/22 18:30 Discharge Date/Time: 07/05/22 18:30
[2022-07-05 17:17] LABS: Alanine Aminotransferase 24 U/L (0-40); Albumin Level 4.1 g/dL (3.5-5.0); Alkaline Phosphatase 64 U/L (39-117); Anion Gap 14 (12-20); Aspartate Amino Transferase 24 U/L (5-37); Bilirubin Total 0.8 mg/dL (0.0-1.0); Blood Urea Nitrogen 13 mg/dL (9-16); Calcium 8.6 mg/dL (8.4-10.2); Carbon Dioxide 24 mmol/L (22-29); Chloride 101 mmol/L (96-108); Creatinine Clr Calc Pharmacy 127.6; Estimated Glomerular Filt Rate > 60; Glucose Random 219 mg/dL (60-115); Potassium 4.9 mmol/L (3.3-5.1); Sodium 134 mmol/L (135-145); Total Protein 6.6 g/dL (6.5-8.0)
[2022-07-05 17:34] LABS: Influenza A PCR NEGATIVE (Negative); Influenza B PCR NEGATIVE (Negative); Resp Syncy Virus RNA Qual PCR NEGATIVE (Negative); SARS COV2 PCR INHOUSE NEGATIVE (Negative)
[2022-07-05 18:00] LABS: INTERNATIONAL NORM RATIO 2.4 (0.9-1.1); Prothrombin Time 28.2 SEC (10.0-13.1)
== END 2022-07-05 18:30 | disposition home or self-care (01) ==
PROVIDERS: Physician Assistant Medical; Emergency Provider Emergency Medicine; PCP Internal Medicine
DX: R07.89 Other chest pain (principal); I48.91 Unspecified atrial fibrillation; I25.10 Atherosclerotic heart disease of native coronary artery without angina pectoris; M54.2 Cervicalgia; M54.50 Low back pain, unspecified; R51.9 Headache, unspecified; Z20.822 Contact with and (suspected) exposure to COVID-19; Z79.899 Other long term (current) drug therapy; Z87.891 Personal history of nicotine dependence
CPT/HCPCS: 0241U; 36415; 70450; 71046; 72072; 72100; 72125; 80053; 82550; 83735; 85025; 85610; 93005; 99284

== ENCOUNTER 2022-07-17 09:35 | Outpatient (REF) | payer MEDICARE, SELFPAY ==
[2022-07-17 11:09] LABS: Anion Gap 12 (12-20); Blood Urea Nitrogen 15 mg/dL (9-16); Calcium 9.2 mg/dL (8.4-10.2); Carbon Dioxide 28 mmol/L (22-29); Chloride 102 mmol/L (96-108); Estimated Glomerular Filt Rate > 60; Glucose Random 152 mg/dL (60-115); Potassium 4.5 mmol/L (3.3-5.1); Sodium 137 mmol/L (135-145)
[2022-07-17 11:14] LABS: B Type Natriuretic Peptide 77 pg/mL (<100)
[2022-07-17 12:38] LABS: Digoxin < 0.2 ng/mL (0.8-2.0)
== END 2022-07-17 09:36 | disposition home or self-care (01) ==
LOC: HO.LAB 09:35
PROVIDERS: PCP Internal Medicine; Visit Provider Internal Medicine Cardiovascular Disease
DX: I48.20 Chronic atrial fibrillation, unspecified (principal); I50.20 Unspecified systolic (congestive) heart failure; I26.99 Other pulmonary embolism without acute cor pulmonale; Z51.81 Encounter for therapeutic drug level monitoring; Z79.01 Long term (current) use of anticoagulants
CPT/HCPCS: 36415; 80048; 80162; 83880; 85610; 99211

== ENCOUNTER → 2022-08-14 10:19 | Outpatient (BNVA) | payer MEDICARE, SELFPAY | PROVIDERS: PCP Internal Medicine; Visit Provider Internal Medicine | DX: I26.99 Other pulmonary embolism without acute cor pulmonale (principal); Z79.01 Long term (current) use of anticoagulants; Z51.81 Encounter for therapeutic drug level monitoring | CPT/HCPCS: 85610; 99211 ==

== ENCOUNTER → 2022-09-11 10:28 | Outpatient (BNVA) | payer MEDICARE, SELFPAY | PROVIDERS: PCP Internal Medicine; Visit Provider Internal Medicine | DX: I26.99 Other pulmonary embolism without acute cor pulmonale (principal); Z79.01 Long term (current) use of anticoagulants; Z51.81 Encounter for therapeutic drug level monitoring | CPT/HCPCS: 85610; 99211 ==

== ENCOUNTER → 2022-09-25 10:28 | Outpatient (BNVA) | payer MEDICARE, SELFPAY | PROVIDERS: PCP Internal Medicine; Visit Provider Internal Medicine | DX: I26.99 Other pulmonary embolism without acute cor pulmonale (principal); Z79.01 Long term (current) use of anticoagulants; Z51.81 Encounter for therapeutic drug level monitoring | CPT/HCPCS: 85610; 99211 ==

== ENCOUNTER → 2022-10-16 10:21 | Outpatient (BNVA) | payer MEDICARE, SELFPAY | PROVIDERS: PCP Internal Medicine; Visit Provider Internal Medicine | DX: I26.99 Other pulmonary embolism without acute cor pulmonale (principal); Z79.01 Long term (current) use of anticoagulants; Z51.81 Encounter for therapeutic drug level monitoring | CPT/HCPCS: 85610; 99211 ==

== ENCOUNTER → 2022-10-30 10:45 | Outpatient (BNVA) | payer MEDICARE, SELFPAY | PROVIDERS: PCP Internal Medicine; Visit Provider Internal Medicine | DX: I26.99 Other pulmonary embolism without acute cor pulmonale (principal); Z51.81 Encounter for therapeutic drug level monitoring; Z79.01 Long term (current) use of anticoagulants | CPT/HCPCS: 85610; 99211 ==

== ENCOUNTER → 2022-11-27 10:29 | Outpatient (BNVA) | payer MEDICARE, SELFPAY | PROVIDERS: PCP Internal Medicine; Visit Provider Internal Medicine | DX: I26.99 Other pulmonary embolism without acute cor pulmonale (principal); Z79.01 Long term (current) use of anticoagulants; Z51.81 Encounter for therapeutic drug level monitoring | CPT/HCPCS: 36415; 80053; 80061; 82043; 83036; 84443; 85025; 99211 ==

== ENCOUNTER → 2022-12-11 10:32 | Outpatient (REF) | payer MEDICARE, SELFPAY ==
--- NOTE | 2022-12-11 10:36 | CA_ITS ---
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 The calculated ejection fraction is 35% by biplane method. - The left atrium is moderately dilated. - No obvious valvular pathology seen on this study. - There is mild dilatation of the ascending aorta measuring 4.60 cm. Findings Procedure Information Contrast agent, definity, is being given per protocol without apparent complications. Left Ventricle Moderately increased left ventricular cavity size. There is mildly increased left ventricular wall thickness. The left ventricular systolic function is moderately decreased. The calculated ejection fraction is 35% by biplane method. There is moderate global hypokinesis. Diastolic function is indeterminate on the basis of available data. Right Ventricle Normal right ventricular cavity size. Atria The left atrium is moderately dilated. The right atrium is normal in size. Aortic Valve The aortic valve was not well visualized. There is mild calcification of the aortic valve. There is no aortic valve stenosis. There is no aortic valve regurgitation. Mitral Valve The mitral valve appears normal. There is trace mitral valve regurgitation. There is no mitral valve stenosis. Pulmonic Valve The pulmonic valve is likely normal. Tricuspid Valve Normal tricuspid valve structure. There is trace tricuspid valve regurgitation. Tricuspid regurgitation envelope is inadequate for calculation of right ventricular systolic pressure. Great Vessels There is mild dilatation of the ascending aorta measuring 4.60 cm. Venous The inferior vena cava was not well visualized. The inferior vena cava is normal in size. Pericardium/Pleural There is no evidence of pericardial effusion. Prior Study Comparison No significant change compared to prior study dated: 11/14/2021. Recommendations, Care & Conclusions No obvious valvular pathology seen on this study. Measurements 2D Linear Measurements IVSd: 1.12 0.6-0.9/0.6-1.0 cm LVIDd: 6.57 3.9-5.3/4.2-5.9 cm LVIDd Index: 2.46 2.4-3.2/2.2-3.1 cm/m2 LVIDs: 5.03 2.0-3.6 cm LVPWd: 1.08 0.7-1.1 cm LV Mass: 406.57 67-162/88-224 g LV Mass Index: 152.27 43-95/49-115 g/m2 LVOT Diam: 2.20 3.0+(-)1.3 cm 2D Systolic Function EF 4C: 34.80 >55% EF 2C: 37.30 >55% EF BiP: 34.80 >55% Mitral Valve MV VTI: 0.30 MV Pk Tiburcio: 1.13 MV Mn Tiburcio: 0.60 MV Pk Grad: 5.00 MV Mn Grad: 2.00 MV Pk E: 0.86 MV Decel Time: 190.00 E'Lateral: 7.62 E'Medial: 6.31 E/E' Med: 13.60 E/E' Lat: 11.20 PHT: 56.00 MVA PHT: 3.93 MVA Continuity: 1.87 Decel Andrew: 4.52 Aortic Valve AoV Pk Tiburcio: 1.48 AoV Pk Grad: 9.00 LVOT LVOT Pk Tiburcio: 0.79 LVOT Mn Tiburcio: 0.52 LVOT VTI: 0.15 LVOT Pk Grad: 3.00 LVOT Mn Grad: 1.00 LVOT Diam: 2.20 LVOT Area: 3.80 Diastolic Function MV Pk E: 0.86 E'Medial: 6.31 E/E' Med: 13.60 E' Laterial: 7.62 E/E' Lat: 11.20 Right Ventricle TAPSE (mm): 20.20 TVS' Tiburcio: 12.70 Tricuspid Valve RA Press: 3.00 Great Vessels Aorta Sinus of Valsalva: 3.59 2.0-3.5 cm Ao Asc: 4.60 2.1-3.4 cm Updated in Other Vendor System with Status of Final Bert Zayas MD electronically signed on 12/13/2022 12:36:27 PM with status of Final
== END ==
LOC: HO.CARD 10:32
PROVIDERS: PCP Internal Medicine; Visit Provider Internal Medicine Cardiovascular Disease
DX: I50.20 Unspecified systolic (congestive) heart failure (principal); I26.99 Other pulmonary embolism without acute cor pulmonale; Z51.81 Encounter for therapeutic drug level monitoring; Z79.01 Long term (current) use of anticoagulants
CPT/HCPCS: 85610; 93306; 99211; Q9957

== ENCOUNTER 2022-12-22 15:15 | Inpatient (IN) | payer OTHER, SELFPAY ==
[2022-12-22] VITALS (9 sets, daily range): BP systolic 90–137; BP diastolic 44–77; PULSE 80–96; RESP 18; TEMP 36.5; O2SAT 95–98; BMI 47.2
--- NOTE | ~2022-12-22 | XR_ITS ---
EXAMINATION: XR KNEE, RIGHT CLINICAL INFORMATION: Right knee pain COMPARISON: 09/02/2018 TECHNIQUE: Four views of the right knee. FINDINGS: No fracture or subluxation. Compartmental joint spaces are maintained. No joint effusion. Small marginal osteophytes of the lateral and patellofemoral compartments. Enthesophyte formation of the patella. XR/XR knee RT 4V IMPRESSION: Mild degenerative changes of the lateral and patellofemoral compartments.
--- NOTE | ~2022-12-22 | CT_ITS ---
EXAMINATION: CT CHEST WITH CONTRAST CT ABDOMEN AND PELVIS WITH CONTRAST CLINICAL INFORMATION: Fall. Chest trauma. COMPARISON: 03/13/2017 TECHNIQUE: Multidetector volumetric imaging was performed through the chest, abdomen and pelvis following the administration of 85 mL of Omnipaque 350 intravenous contrast. Sagittal and coronal reformatted images were obtained on the technologist's workstation. Axial MIP volume rendering provided. This CT examination was performed using dose optimization techniques as appropriate, variously including the following: *Automated exposure control *Adjustment of mA and/or kV according to patient size (this includes techniques or standardized protocols for targeted exams where dose is matched to indication/reason for exam; i.e. extremities or head) *Use of iterative reconstruction technique DLP: 2873 mGy-cm. FINDINGS: CHEST: Lungs: The central airways are patent. No consolidation. No pleural effusion or pneumothorax. There are adjacent left lower lobe nodules measuring up to 0.4 cm on series 7 image 354. These are increased from the 2017 study.. Mediastinum: The heart is of normal size. There is no pericardial effusion. Central vascular structures are unremarkable. No hilar or mediastinal lymphadenopathy. Coronary Artery Calcification: None visualized on this study. Chest Wall/Axilla: No lymphadenopathy. No chest wall mass. ABDOMEN/PELVIS: Liver, Gallbladder, Biliary Tree: The liver is normal in size and shape with decreased attenuation. No focal hepatic lesion or biliary ductal dilatation is present. The gallbladder is unremarkable with no evidence of radiopaque gallstones, gallbladder wall thickening, or pericholecystic inflammatory changes. Pancreas: Unremarkable. Spleen: Unremarkable. Adrenal Glands: Unremarkable. Kidneys and Ureters: The kidneys are normal in size, shape, and attenuation. No hydronephrosis, hydroureter or calculi seen. No perinephric stranding. Bladder: Unremarkable. Gastrointestinal Tract: Status post gastric sleeve. Normal caliber small bowel. No obstruction. No colonic wall thickening or acute inflammation. No free air or free fluid. The appendix is unremarkable. Abdominal Wall: Prominent fat-containing umbilical hernia. Lymphovascular Structures: Lymph nodes: Normal. Vascular: Normal caliber aorta with mild atherosclerotic calcification. Pelvic Viscera: The prostate and seminal vesicles are unremarkable. OSSEOUS STRUCTURES: Vertebral body height and alignment maintained. Vacuum disc phenomenon in the lumbar spine and lower thoracic spine. Diffuse bridging osteophytes. No spinal fracture seen. Posterior elements are well aligned. Intact sternum. No rib fracture identified. Fusion across the sacroiliac joints. The hips are well aligned with degenerative change. No pelvic fracture. CT/CT abdomen pelvis w IV con IMPRESSION: 1. No acute traumatic finding of the chest, abdomen, or pelvis. 2. Adjacent left lower lobe pulmonary nodules measuring up to 0.4 cm. These are increased in size from the 2017 study. 3. Hepatic steatosis. According to the UPDATED 2017 Fleischner Society recommendations, the advised follow-up imaging for solid nodules < 6 mm is: LOW RISK PATIENT: No routine follow-up. HIGH RISK PATIENT: Optional CT at 12 months.
--- NOTE | ~2022-12-22 | CT_ITS ---
EXAMINATION: CT HEAD WITHOUT CONTRAST CT CERVICAL SPINE WITHOUT CONTRAST CLINICAL INFORMATION: Syncope. Head strike. COMPARISON: CT head and cervical spine from 07/05/2022. TECHNIQUE: Contiguous axial imaging was performed from the skull base to vertex without intravenous administration of contrast. Contiguous axial imaging was performed from the upper chest through the skull base without intravenous administration of contrast. Coronal and sagittal reformats were obtained at the acquisition workstation. This CT examination was performed using dose optimization techniques as appropriate, variously including the following: *Automated exposure control. *Adjustment of mA and/or kV according to patient size (this includes techniques or standardized protocols for targeted exams where dose is matched to indication/reason for exam; i.e. extremities or head). *Use of iterative reconstruction technique. DLP: 1965 mGy-cm FINDINGS: Head: Moderately motion degraded exam. There is no evidence of acute intracranial hemorrhage or edematous territorial infarction. Jacobson-white matter differentiation is preserved. A few foci of hypoattenuation in the periventricular and deep white matter are consistent with mild microangiopathy. Proportional prominence of the ventricles and sulcal spaces without evidence of obstructive hydrocephalus. No abnormal mass effect or midline shift. No extra-axial fluid collections. Calcific atherosclerotic disease of the intracranial internal carotid and vertebral arteries. No demonstrated hyperdense vessel sign. No acute soft tissue or osseous abnormalities. The mastoid air cells and visualized paranasal sinuses are clear. Multifocal odontogenic enamel erosions and periapical lucencies. Cervical Spine: The atlantooccipital and atlantoaxial articulations remain well aligned. Moderate degenerative arthropathy of the atlantodental articulation. Straightening of the normal cervical lordosis. Otherwise, there is anatomic alignment of the vertebral bodies and posterior elements. No evidence of acute fracture or subluxation. The vertebral body heights are maintained. Advanced degenerative disc disease at C6-C7. Moderate degenerative disc disease at C4-C5, C5-C6, and C7-T1. Facet and uncovertebral joint arthropathy leads to osseous encroachment on the neural foramina from C2-C5 and at C6-C7. There is no prevertebral soft tissue swelling. The thyroid gland and remaining cervical soft tissues are within normal limits. The lung apices demonstrate no abnormalities. CT/CT cervical spine wo IV con IMPRESSION: 1. No evidence of acute intracranial hemorrhage or edematous territorial infarction. Mild underlying microangiopathy and generalized cerebral volume loss. 2. No evidence of acute fracture or traumatic subluxation of the cervical spine. Moderate multilevel degenerative spondyloarthropathy of the cervical spine.
--- NOTE | 2022-12-22 16:15 | ED.GENADULT ---
HPI - General Adult General Chief complaint: Dyspnea Stated complaint: FALL T-1,LOW BP 81/60 PER EMS Time Seen by Provider: 12/22/22 16:09 Source: patient and EMS Mode of arrival: ambulatory Limitations: no limitations History of Present Illness HPI narrative: 72-year-old male history of coronary artery disease, congestive heart failure, cardiomyopathy, persistent atrial fibrillation anticoagulated on warfarin, hyperlipidemia, hypertension presenting to the emergency department for evaluation of episode of syncope with LOC and fall yesterday afternoon. He reports that at the time of his fall EMS was called who evaluated him and reported vital signs within normal limits. Since the fall he reports lower back pain and right knee pain. This morning he reports feeling dizzy and pre-syncopal again and this time presented to the emergency department via EMS. The patient reports low blood pressures at home, anuria since Wednesday, increased shortness of breath and chest pain with deep breaths worsening in the past week leading up to these events. He denies fever chills, abdominal pain, distention, nausea, vomitting, palpitations. Related Data Home Medications Medication Instructions Recorded Confirmed multivitamin 1 tab PO DAILY 10/22/20 12/11/22 epinephrine 0.3 mg/0.3 mL 0.3 mg IM Q10M PRN 01/14/21 12/11/22 injection, auto-injector primidone 50 mg tablet 50 mg PO BID 07/09/21 12/11/22 acetaminophen 650 mg 1,300 mg PO DAILY 08/05/21 12/11/22 tablet,extended release omega-3 fatty acids 500 mg capsule 500 mg PO DAILY 08/05/21 12/11/22 cetirizine 10 mg tablet 10 mg PO DAILY 05/15/22 12/11/22 gabapentin 100 mg capsule 100 - 300 mg PO BEDTIME PRN anxiety 09/25/22 12/11/22 gabapentin 300 mg capsule 300 mg PO BEDTIME PRN anxiety 09/25/22 12/11/22 hydroxyzine pamoate 25 mg capsule 25 mg PO DAILY PRN anxiety 09/25/22 12/11/22 duloxetine 20 mg capsule,delayed 40 mg PO 10/16/22 12/11/22 release bupropion HCl 100 mg tablet 300 mg PO .COMPLEX 11/10/22 12/11/22 Previous Rx's Medication Instructions Recorded hydrocortisone 2.5 % topical cream 1 appl topical BID PRN skin 08/11/21 irritation 30 days #30 grams atorvastatin 10 mg tablet 10 mg PO BEDTIME #90 tabs 04/29/22 digoxin 250 mcg (0.25 mg) tablet 250 mcg PO DAILY 90 days #90 tabs 08/17/22 carvedilol 12.5 mg tablet (Coreg) 12.5 mg PO BID #180 tabs 09/11/22 warfarin 4 mg tablet 4 mg PO DAILY #90 tabs 10/06/22 valsartan 40 mg tablet 20 mg PO QPM 90 days #45 tabs 11/03/22 tizanidine 4 mg tablet 4 mg PO BEDTIME PRN Spasms 90 days 11/10/22 #90 tabs Allergies Allergy/AdvReac Type Severity Reaction Status Date / Time iodine [IODINE] Allergy Intermediate HIVES, Verified 12/11/22 10:19 bloating latex [LATEX] Allergy Intermediate HIVES Verified 12/11/22 10:19 shellfish derived Allergy Intermediate ANAPHYLAXIS Verified 12/11/22 10:19 [SHELLFISH DERIVED] Review of Systems Review of Systems: Constitutional : + Weight loss, No Fever, No Chills, + Fatigue, + Malaise ENT/Mouth : No sore throat, No Rhinorrhea Cardiovascular : + Chest Pain, + SOB, + Dyspnea on Exertion, No Orthopnea, No Edema, No Palpitations Respiratory : No Cough, No Sputum, No Wheezing Gastrointestinal : No Nausea, No Vomiting, No Diarrhea, No Constipation, No abdominal Pain, No Hematochezia, No Melena Genitourinary : No Dysuria, No Urinary Frequency, No Hematuria, + inability to void Musculoskeletal : No joint pain, No Myalgias, No Joint Swelling Skin : No Skin Lesions, No rash Neuro : No Weakness, No Numbness, No Dizziness, No Headache Psych : No Anxiety/Panic, No Depression All other systems reviewed and are negative Yes all other systems are reviewed and are negative [facility] Past Medical History Attestation statement: The following information was validated with the patient. Source: old records reviewed and nursing notes reviewed Medical History CAD (coronary artery disease) Cardiomyopathy COPD (chronic obstructive pulmonary disease) Current use of anticoagulant therapy Diabetes Dyspnea Heart failure with reduced ejection fraction HLD (hyperlipidemia) HTN (hypertension) Morbid obesity Obstructive sleep apnea NOEMI on CPAP Persistent atrial fibrillation Surgical History History of ankle surgery History of knee surgery Family History Family History Father HTN (hypertension) Diabetes mellitus Cardiac disease Bone cancer Substance use disorder Mother HTN (hypertension) Lung cancer Social History Social History Housing: Apartment Alcohol intake: never Patient Tobacco Use Status: Former Tobacco user Years Smoked: 30 yrs Smoked in Last 30 Days: No e-Cigarette/Vaping Use: Never Used Second Hand Smoke Exposure: No Use of substances other than those prescribed or required for medical reasons: No Advance Directives: No Advance Directives Information Provided: No service: No Current occupational status: disabled Cognitive needs: No Hearing needs: No Vision needs: Yes Physical Exam ED Vital Signs: Vital Signs - 24 hr 12/22/22 15:44 12/22/22 16:09 12/22/22 18:48 Temperature 97.7 F Pulse Rate 96 84 81 Respiratory Rate 18 18 Blood Pressure 94/75 94/75 115/53 L Pulse Oximetry 97 96 Oxygen Delivery Method Room Air 12/22/22 18:51 12/22/22 18:48 12/22/22 18:49 Temperature Pulse Rate 85 88 82 Respiratory Rate 18 Blood Pressure 118/44 L 101/57 L 118/44 L Pulse Oximetry 95 Oxygen Delivery Method 12/22/22 20:27 12/22/22 21:11 Temperature Pulse Rate 80 Respiratory Rate 18 18 Blood Pressure 104/77 Pulse Oximetry 96 Oxygen Delivery Method BMI result Body Mass Index 47.2 vss Appearance: Alert.? Oriented X3.? No acute distress.?Patient has a strong urine odor. Head: Normocephalic, atraumatic, no step-offs or deformities Eyes: Pupils equal, round and reactive to light.? ENT: Pharynx normal.? Neck: Normal inspection.? Neck supple.? CVS: Normal heart rate and rhythm.? Pulses normal.? Respiratory: No respiratory distress.? Breath sounds normal.? Abdomen: Soft and nontender.? Skin: Skin warm and dry.? Normal skin color.? Normal skin turgor.? Extremities: No lower extremity edema.? Pain to palpation of right patella. No calf ttp. 5/5 strength to bilateral upper and lower extremities. 2+ patellar reflexes equal and bilateral. Back: No midline tenderness. Bilateral tenderness to palpation of all lumbar paraspinous muscles. Full range of motion to back, however uncomfortable Neuro: Oriented X 3.? No saddle paresthesias. No motor deficit.? No sensory deficit. CN 2-12 intact . Normal [id number], [id number], steady tandem gait normal coordination. Course Reevaluation(s) Reevaluation #1: CBC appears to be around patient's baseline. No acute findings. Chemistry unremarkable. Slightly elevated transaminases and 2-1 fashion. Patient also noted to have elevated CPK consistent with acute rhabdomyolysis. Troponin, BNP pending at this time. Pending lactic acid. Will wait to give at IV hydration until patient's BNP results. Patient's bladder scan was done which is not showing acute urinary retention. 120 mL. Pending straight cath, remainder of labs, urine. Time: 17:32 Reevaluation #2: Troponin, BNP negative, EKG nonischemic unlikely CHF, ACS. Patient's lactic acid was elevated 2.5 likely secondary to hypoperfusion, I do not suspect sepsis. Total CPK was elevated this could also contribute. Patient was noted to have orthostatic hypotension, pressure dropped 20 sat up. At this time plan is for hospital admission. CT of head and cervical spine with no acute intracranial hemorrhage or edematous territory infarction. Cervical spine no acute fractures or traumatic subluxation. CT of chest, no acute findings in chest, abdomen or pelvis. Hepatic steatosis noted. Hospitalist in room for admission. Time: 21:33 Medications Administered Discontinued Medications Generic Name Dose Route Start Last Admin Trade Name Freq PRN Reason Stop Dose Admin Diphenhydramine HCl 50 mg 12/22/22 17:44 12/22/22 18:05 Diphenhydramine Hcl 50 Mg/Ml Vial IVPUSH 12/22/22 17:45 50 mg ONCE ONE Administration Sodium Chloride 1,000 mls @ 999 mls/hr 12/22/22 18:00 12/22/22 19:45 Ns IV 12/22/22 19:00 Infused .Q1H1M JACKELINE Infusion Ceftriaxone Sodium 1 gm/ 50 mls @ 100 mls/hr 12/22/22 17:57 12/22/22 19:22 Sodium Chloride IV 12/22/22 18:26 Infused ONCE ONE Infusion Iohexol 100 ml 12/22/22 18:46 12/22/22 18:46 Iohexol 350 Mg/Ml 100 Ml Infus..Btl IV 12/22/22 18:47 85 ml ONCE ONE Administration Methylprednisolone Sodium Succinate 125 mg 12/22/22 17:44 12/22/22 18:05 Methylprednisolone Sod Succ 125 Mg/2 Ml Vial IVPUSH 12/22/22 17:45 125 mg ONCE ONE Administration Morphine Sulfate 4 mg 12/22/22 20:37 12/22/22 21:11 Morphine Sulfate 4 Mg/Ml Cartridge IVPUSH 12/22/22 20:38 4 mg ONCE ONE Administration Protocol Medical Decision Making Medical Decision Making MDM Narrative: This is a 72-year-old male presenting to the emergency department for evaluation syncopal episode of head strike that occurred yesterday. Anticoagulated on warfarin. Physical exam Concerns for possible dysrhythmia, electrolyte abnormalities, UTI. Will rule out ACS, orthostatic hypotension, CHF. Unlikely pulmonary embolism patient anticoagulated med compliant on warfarin. Unlikely that this is pneumonia. No back pain, saddle paresthesias unlikely that this is cauda equina, epidural abscess. Inability to void is likely secondary to UTI, cystitis, obstructing uropathy. Unlikely cauda equina. Unlikely that this is an intracranial hemorrhage, stroke, posterior stroke however due to mechanism of injury head scans will be obtained to rule out hemorrhage. I do not suspect traumatic injury to chest, abdomen or pelvis.Will rule out fracture, dislocation of right knee however it is likely sprain or strain. Plan at this time labs, imaging, urine, bladder scan, orthostatic vitals. Differential Diagnosis Differential Diagnoses: The differential diagnosis associated with the presentation includes Concerns for possible dysrhythmia, electrolyte abnormalities, UTI. Will rule out ACS, orthostatic hypotension, CHF. Unlikely pulmonary embolism patient anticoagulated med compliant on warfarin. Unlikely that this is pneumonia. No back pain, saddle paresthesias unlikely that this is cauda equina, epidural abscess. Inability to void is likely secondary to UTI, cystitis, obstructing uropathy. Unlikely cauda equina. Unlikely that this is an intracranial hemorrhage, stroke, posterior stroke however due to mechanism of injury head scans will be obtained to rule out hemorrhage. I do not suspect traumatic injury to chest, abdomen or pelvis.Will rule out fracture, dislocation of right knee however it is likely sprain or strain. Admission/Observation Consideration of admission/observation: Escalation of care including admission/observation considered Likely Lab Data MDM Lab Attestation statement: I reviewed the patient's lab results. 12/22/22 16:48 12/22/22 16:39 Labs: Lab Results 12/22/22 12/22/22 12/22/22 Range/Units 16:39 16:48 16:48 WBC 9.1 (4.8-10.8) X10*3/uL RBC 4.38 L (4.60-5.80) X10*6/uL Hgb 13.9 L (14.0-18.0) g/dl Hct 42.9 (42.0-52.0) % MCV 97.9 (80.0-98.0) fL MCH 31.7 (27.0-33.0) pg MCHC 32.4 (31.0-36.0) g/dl RDW 12.4 (11.0-16.0) % Plt Count 225 (160-400) X10*3/uL MPV 10.9 (9.4-12.4) fL Immature Gran % (Auto) 0.4 (0.0-0.4) % Neut % (Auto) 73.7 H (45-73) % Lymph % (Auto) 18.2 L (20-40) % [place] % (Auto) 4.9 (2-11) % Eos % (Auto) 2.3 (0-4) % Baso % (Auto) 0.5 (0-2) % Lymph # (Auto) 1.7 (1.2-4.9) X10*3/uL [place] # (Auto) 0.5 (0.1-1.2) X10*3/uL Eos # (Auto) 0.2 (0.0-0.4) X10*3/uL Baso # (Auto) 0.1 (0.0-0.2) X10*3/uL Abs Immat Gran (auto) 0.04 H (0.00-0.03) X10*3/uL Absolute Neuts (auto) 6.7 (2.0-8.3) x10*3/uL Absolute Nucleated RBC 0.000 (0.0-0.012) X10*3/uL Nucleated RBC % (auto) 0.0 (0.0-0.2) /100WBC PT 41.8 H (10.0-13.1) SEC INR 3.5 H (0.9-1.1) Sodium 140 (135-145) mmol/L Potassium 3.9 (3.3-5.1) mmol/L Chloride 104 (96-108) mmol/L Carbon Dioxide 26 (22-29) mmol/L Anion Gap 14 (12-20) BUN 16 (9-16) mg/dL Creatinine 0.83 (0.5-1.4) mg/dL Estim Creat Clear Calc 128.5 Estimated GFR > 60 Random Glucose 169 H (60-115) mg/dL Lactic Acid (0.5-2.0) mmol/L Lactic Acid F/U @ 2Hr (0.5-2.0) mmol/L Calcium 8.8 (8.4-10.2) mg/dL Magnesium 1.9 (1.6-2.6) mg/dL Total Bilirubin 0.7 (0.0-1.0) mg/dL AST 127 H (5-37) U/L ALT 50 H (0-40) U/L Alkaline Phosphatase 60 (39-117) U/L Total Creatine Kinase 3834 H (38-174) U/L Troponin I High Sens (<3.5-35.0) ng/L C-Reactive Protein 1.33 H (< or = 0.50) mg/dL B-Natriuretic Peptide (<100) pg/mL Total Protein 6.3 L (6.5-8.0) g/dL Albumin 3.8 (3.5-5.0) g/dL Urine Color Urine Appearance Urine pH (5.0-9.0) Ur Specific [place] (1.005-1.025) Urine Protein (Neg-Trace) mg/dL Urine Glucose (UA) (Negative) mg/dL Urine Ketones (Negative) mg/dL Urine Blood (Negative) Urine Nitrite (Negative) Ur Leukocyte Esterase (Negative) COVID-19 (JESSICA) (Negative) COVID-19 Clin Com 12/22/22 12/22/22 12/22/22 Range/Units 16:49 17:02 17:02 WBC (4.8-10.8) X10*3/uL RBC (4.60-5.80) X10*6/uL Hgb (14.0-18.0) g/dl Hct (42.0-52.0) % MCV (80.0-98.0) fL MCH (27.0-33.0) pg MCHC (31.0-36.0) g/dl RDW (11.0-16.0) % Plt Count (160-400) X10*3/uL MPV (9.4-12.4) fL Immature Gran % (Auto) (0.0-0.4) % Neut % (Auto) (45-73) % Lymph % (Auto) (20-40) % [place] % (Auto) (2-11) % Eos % (Auto) (0-4) % Baso % (Auto) (0-2) % Lymph # (Auto) (1.2-4.9) X10*3/uL [place] # (Auto) (0.1-1.2) X10*3/uL Eos # (Auto) (0.0-0.4) X10*3/uL Baso # (Auto) (0.0-0.2) X10*3/uL Abs Immat Gran (auto) (0.00-0.03) X10*3/uL Absolute Neuts (auto) (2.0-8.3) x10*3/uL Absolute Nucleated RBC (0.0-0.012) X10*3/uL Nucleated RBC % (auto) (0.0-0.2) /100WBC PT (10.0-13.1) SEC INR (0.9-1.1) Sodium (135-145) mmol/L Potassium (3.3-5.1) mmol/L Chloride (96-108) mmol/L Carbon Dioxide (22-29) mmol/L Anion Gap (12-20) BUN (9-16) mg/dL Creatinine (0.5-1.4) mg/dL Estim Creat Clear Calc Estimated GFR Random Glucose (60-115) mg/dL Lactic Acid 2.5 H* (0.5-2.0) mmol/L Lactic Acid F/U @ 2Hr (0.5-2.0) mmol/L Calcium (8.4-10.2) mg/dL Magnesium (1.6-2.6) mg/dL Total Bilirubin (0.0-1.0) mg/dL AST (5-37) U/L ALT (0-40) U/L Alkaline Phosphatase (39-117) U/L Total Creatine Kinase (38-174) U/L Troponin I High Sens 7.5 (<3.5-35.0) ng/L C-Reactive Protein (< or = 0.50) mg/dL B-Natriuretic Peptide (<100) pg/mL Total Protein (6.5-8.0) g/dL Albumin (3.5-5.0) g/dL Urine Color Urine Appearance Urine pH (5.0-9.0) Ur Specific [place] (1.005-1.025) Urine Protein (Neg-Trace) mg/dL Urine Glucose (UA) (Negative) mg/dL Urine Ketones (Negative) mg/dL Urine Blood (Negative) Urine Nitrite (Negative) Ur Leukocyte Esterase (Negative) COVID-19 (JESSICA) Negative (Negative) COVID-19 Clin Com See Note 12/22/22 12/22/22 12/22/22 Range/Units 17:02 19:26 19:57 WBC (4.8-10.8) X10*3/uL RBC (4.60-5.80) X10*6/uL Hgb (14.0-18.0) g/dl Hct (42.0-52.0) % MCV (80.0-98.0) fL MCH (27.0-33.0) pg MCHC (31.0-36.0) g/dl RDW (11.0-16.0) % Plt Count (160-400) X10*3/uL MPV (9.4-12.4) fL Immature Gran % (Auto) (0.0-0.4) % Neut % (Auto) (45-73) % Lymph % (Auto) (20-40) % [place] % (Auto) (2-11) % Eos % (Auto) (0-4) % Baso % (Auto) (0-2) % Lymph # (Auto) (1.2-4.9) X10*3/uL [place] # (Auto) (0.1-1.2) X10*3/uL Eos # (Auto) (0.0-0.4) X10*3/uL Baso # (Auto) (0.0-0.2) X10*3/uL Abs Immat Gran (auto) (0.00-0.03) X10*3/uL Absolute Neuts (auto) (2.0-8.3) x10*3/uL Absolute Nucleated RBC (0.0-0.012) X10*3/uL Nucleated RBC % (auto) (0.0-0.2) /100WBC PT (10.0-13.1) SEC INR (0.9-1.1) Sodium (135-145) mmol/L Potassium (3.3-5.1) mmol/L Chloride (96-108) mmol/L Carbon Dioxide (22-29) mmol/L Anion Gap (12-20) BUN (9-16) mg/dL Creatinine (0.5-1.4) mg/dL Estim Creat Clear Calc Estimated GFR Random Glucose (60-115) mg/dL Lactic Acid (0.5-2.0) mmol/L Lactic Acid F/U @ 2Hr 1.4 (0.5-2.0) mmol/L Calcium (8.4-10.2) mg/dL Magnesium (1.6-2.6) mg/dL Total Bilirubin (0.0-1.0) mg/dL AST (5-37) U/L ALT (0-40) U/L Alkaline Phosphatase (39-117) U/L Total Creatine Kinase (38-174) U/L Troponin I High Sens (<3.5-35.0) ng/L C-Reactive Protein (< or = 0.50) mg/dL B-Natriuretic Peptide 43 (<100) pg/mL Total Protein (6.5-8.0) g/dL Albumin (3.5-5.0) g/dL Urine Color Dark Yellow Urine Appearance Clear Urine pH 5.5 (5.0-9.0) Ur Specific [place] >= 1.030 H (1.005-1.025) Urine Protein Trace (Neg-Trace) mg/dL Urine Glucose (UA) Negative (Negative) mg/dL Urine Ketones Trace (Negative) mg/dL Urine Blood Negative (Negative) Urine Nitrite Negative (Negative) Ur Leukocyte Esterase Negative (Negative) COVID-19 (JESSICA) (Negative) COVID-19 Clin Com Independent Interpretation I performed an independent interpretation of an: Plain X-Ray and CT Scan Radiology Impression Discussion of test interpretation with radiology: I have reviewed the radiologist's reading. External Record Review External record reviewed: Inpatient record, Office record, Outpatient record, Prior outpatient labs, Prior outpatient radiology and Primary care record Core Measures AMI core measures followed: Yes Measure exclusions: not indicated Critical Care Time Critical Care Time Critical Care Time: No Discharge Plan Discharge Clinical Impression: Syncope, Fall, Rhabdomyolysis Patient Disposition: Admitted As Inpatient Prescriptions: No Action omega-3 fatty acids 500 mg capsule 500 mg PO DAILY acetaminophen 650 mg tablet extended release 1,300 mg PO DAILY Rx Instructions: TAKES IN AM hydrocortisone 2.5 % cream 1 appl topical BID PRN (Reason: skin irritation) 30 Days Qty: 30 2RF atorvastatin 10 mg tablet 10 mg PO BEDTIME Qty: 90 3RF digoxin 250 mcg (0.25 mg) tablet 250 mcg PO DAILY 90 Days Qty: 90 2RF carvedilol [Coreg] 12.5 mg tablet 12.5 mg PO BID Qty: 180 1RF Rx Instructions: must administer with a meal/food warfarin 4 mg tablet 4 mg PO DAILY Qty: 90 3RF Protocol: Dose Management Condition: Wednesday (Week One) Dose/Route: 6 mg Instruction: 1.5 x 4 mg tablets Condition: Wednesday Dose/Route: 4 mg Instruction: 1 x 4 mg tablet Condition: Wednesday Dose/Route: 6 mg Instruction: 1.5 x 4 mg tablets Condition: Wednesday Dose/Route: 4 mg Instruction: 1 x 4 mg tablet Condition: Dose/Route: 6 mg Instruction: 1.5 x 4 mg tablets Condition: Wednesday Dose/Route: 4 mg Instruction: 1 x 4 mg tablet Condition: Wednesday Dose/Route: 6 mg Instruction: 1.5 x 4 mg tablets Condition: Wednesday (Week Two) Dose/Route: 6 mg Instruction: 1.5 x 4 mg tablets Condition: Wednesday Dose/Route: 4 mg Instruction: 1 x 4 mg tablet Condition: Wednesday Dose/Route: 6 mg Instruction: 1.5 x 4 mg tablets Condition: Wednesday Dose/Route: 4 mg Instruction: 1 x 4 mg tablet Condition: Dose/Route: 6 mg Instruction: 1.5 x 4 mg tablets Condition: Wednesday Dose/Route: 4 mg Instruction: 1 x 4 mg tablet Condition: Wednesday Dose/Route: 6 mg Instruction: 1.5 x 4 mg tablets Protocol Text: Adjustment Start Date: Wednesday12/11/22 INR Value: 2.2 INR Date: 12/11/22 Recheck Date: 01/01/23 Additional Instructions: INR is in range continue same dosing balance greens and reds in diet, be consistent GOOD WORK!!! valsartan 40 mg tablet 20 mg PO QPM 90 Days Qty: 45 3RF multivitamin Tablet 1 tab PO DAILY tizanidine 4 mg tablet 4 mg PO BEDTIME PRN (Reason: Spasms) 90 Days Qty: 90 1RF epinephrine 0.3 mg/0.3 mL auto-injector 0.3 mg IM Q10M PRN Rx Instructions: for 2 doses primidone 50 mg tablet 50 mg PO BID cetirizine 10 mg tablet 10 mg PO DAILY gabapentin 300 mg capsule 300 mg PO BEDTIME PRN (Reason: anxiety) hydroxyzine pamoate 25 mg capsule 25 mg PO DAILY PRN (Reason: anxiety) gabapentin 100 mg capsule 100 - 300 mg PO BEDTIME PRN (Reason: anxiety) duloxetine 20 mg capsule,delayed release(DR/EC) 40 mg PO bupropion HCl 100 mg tablet 300 mg PO .COMPLEX Rx Instructions: 300 mg orally
--- NOTE | 2022-12-22 16:17 | ECG_ITS ---
Test Reason : FALL Blood Pressure : / mmHG Vent. Rate : 077 BPM Atrial Rate : 000 BPM P-R Int : 000 ms QRS Dur : 098 ms QT Int : 394 ms P-R-T Axes : 000 -30 012 degrees QTc Int : 445 ms Atrial fibrillation Left axis deviation Abnormal ECG When compared with ECG of 05-JUL-2022 16:22, Vent. rate has increased BY 27 BPM Referred By: Cruz Burgos Electronically Signed By:Campbell Petty
[2022-12-22 16:54] LABS: MANUAL DIFF FLAG NO
[2022-12-22 17:00] LABS: Basophils Absolute Auto 0.1 X10*3/uL (0.0-0.2); Basophils Percent Auto 0.5 % (0-2); Eosinophils Absolute Auto 0.2 X10*3/uL (0.0-0.4); Eosinophils Percent Auto 2.3 % (0-4); Hematocrit 42.9 % (42.0-52.0); Hemoglobin 13.9 g/dl (14.0-18.0); Imm Gran Abs Auto 0.04 X10*3/uL (0.00-0.03); Imm Gran Pct Auto 0.4 % (0.0-0.4); Lymphocytes Absolute Auto 1.7 X10*3/uL (1.2-4.9); Lymphocytes Percent Auto 18.2 % (20-40); Mean Corpuscular HGB Conc 32.4 g/dl (31.0-36.0); Mean Corpuscular Hemoglobin 31.7 pg (27.0-33.0); Mean Corpuscular Volume 97.9 fL (80.0-98.0); Mean Platelet Volume 10.9 fL (9.4-12.4); Monocytes Absolute Auto 0.5 X10*3/uL (0.1-1.2); Monocytes Percent Auto 4.9 % (2-11); Neutrophils Absolute Auto 6.7 x10*3/uL (2.0-8.3); Neutrophils Percent Auto 73.7 % (45-73); Platelet Count 225 X10*3/uL (160-400); Red Blood Count 4.38 X10*6/uL (4.60-5.80); Red Cell Distribution Width 12.4 % (11.0-16.0); White Blood Count 9.1 X10*3/uL (4.8-10.8)
[2022-12-22 17:02] LABS: INTERNATIONAL NORM RATIO 3.5 (0.9-1.1); Prothrombin Time 41.8 SEC (10.0-13.1)
[2022-12-22 17:03] LABS: Alanine Aminotransferase 50 U/L (0-40); Albumin Level 3.8 g/dL (3.5-5.0); Alkaline Phosphatase 60 U/L (39-117); Anion Gap 14 (12-20); Aspartate Amino Transferase 127 U/L (5-37); Bilirubin Total 0.7 mg/dL (0.0-1.0); Blood Urea Nitrogen 16 mg/dL (9-16); Calcium 8.8 mg/dL (8.4-10.2); Carbon Dioxide 26 mmol/L (22-29); Chloride 104 mmol/L (96-108); Creatinine Clr Calc Pharmacy 128.5; Estimated Glomerular Filt Rate > 60; Glucose Random 169 mg/dL (60-115); Magnesium 1.9 mg/dL (1.6-2.6); Potassium 3.9 mmol/L (3.3-5.1); Sodium 140 mmol/L (135-145); Total Protein 6.3 g/dL (6.5-8.0)
[2022-12-22 17:12] LABS: COVID-19 Test Negative (Negative); IDNOW Serial# 08D9AD1C
[2022-12-22 17:46] LABS: Lactic Acid 2.5 mmol/L (0.5-2.0)
[2022-12-22 17:51] LABS: B Type Natriuretic Peptide 43 pg/mL (<100)
[2022-12-22 17:55] LABS: Troponin-I High Sensitivity 7.5 ng/L (<3.5-35.0)
[2022-12-22] MEDS: methylPREDNISolone Sod Succ 125 MG/2 ML VIAL IVPUSH (18:05)
[2022-12-22] MEDS: diphenhydrAMINE HCL 50 MG/ML VIAL IVPUSH (18:05)
[2022-12-22] MEDS: 0.9 % Sodium Chloride 1,000 ML 999 ML IV ×2 (18:06→21:55)
[2022-12-22] MEDS: cefTRIAXone sodium 1 GM in 0.9 % Sodium Chloride 50 ML IV (18:41)
[2022-12-22] MEDS: iohexoL 350 MG/ML 100 ML INFUS..BTL IV (18:46)
[2022-12-22 19:23] LABS: Reflex Lactate? Lactic Acid Added
--- NOTE | 2022-12-22 19:36 | PC.NURSE ---
Pt A&Ox4, reports 7/10 back pain and 4/10 right knee pain, right knee swelling noted, no redness or open areas.Pt ambulating in room with cane. Pt denies CP, palpitations or SOB. Urine sample obtained and sent to lab, Pt denies any pain and burning with urination. IV fluids running per MAR.
[2022-12-22 19:37] LABS: Appearance Urine Clear; Color Urine Dark Yellow; Glucose Urine UA Negative (Negative); Leukocyte Esterase Urine Negative (Negative); Nitrite Urine Negative (Negative); PH 5.5 (5.0-9.0); Specific Gravity - Urine >= 1.030 (1.005-1.025); Urine Blood Negative (Negative); Urine Ketones Trace mg/dL (Negative); Urine Protein Trace mg/dL (Neg-Trace)
[2022-12-22 19:46] LABS: C Reactive Protein 1.33 mg/dL (< or = 0.50)
[2022-12-22 20:15] LABS: ~Lactic Acid-LAB USE ONLY 1.4 mmol/L (0.5-2.0)
[2022-12-22] MEDS: Morphine Sulfate 4 MG/ML CARTRIDGE IVPUSH (21:11)
--- NOTE | 2022-12-22 21:30 | P.HPHOSP_ITS ---
History of Present Illness Date of Service: 12/22/22 Chief Complaint: Syncope This is a 72-year-old male with pertinent history of persistent atrial fibrillation on Coumadin, congestive heart failure with reduced ejection fraction, NOEMI on CPAP, mood disorder, essential hypertension who presents to the emergency department for evaluation of syncope. Patient states that when he tried to get up from his bed yesterday, he had dizziness / lightheadedness and the next thing he knew he passed out on the floor. Patient was on the floor for about an hour. Patient states he took his blood pressure and it was in the 80s systolic. Patient states he again had episodes of dizziness today. 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 Patient denies vomiting, diarrhea. No fever, chills, orthopnea, PND, dyspnea, abdominal pain, changes in urinary or bowel habits. In the emergency department, patient's CK was found to be elevated. Review of Systems Constitutional: Constitutional: Reports fatigue and Reports malaise ENT: Reports dizziness Cardiovascular: Cardiovascular: Reports no additional cardiovascular complaints Respiratory: Respiratory: Reports no additional respiratory complaints Gastrointestinal: Gastrointestinal: Reports no additional gastrointestinal complaints Genitourinary: Genitourinary: Reports no additional male genitourinary complaints Neurologic: Reports dizziness Endocrine: Endocrine: Reports fatigue PMFSH Medical History CAD (coronary artery disease) Cardiomyopathy COPD (chronic obstructive pulmonary disease) Current use of anticoagulant therapy Diabetes Dyspnea Heart failure with reduced ejection fraction HLD (hyperlipidemia) HTN (hypertension) Morbid obesity Obstructive sleep apnea NOEMI on CPAP Persistent atrial fibrillation Family History Father HTN (hypertension) Diabetes mellitus Cardiac disease Bone cancer Substance use disorder Mother HTN (hypertension) Lung cancer Surgical History History of ankle surgery History of knee surgery Social History Housing: Apartment Alcohol intake: never Patient Tobacco Use Status: Former Tobacco user Years Smoked: 30 yrs Smoked in Last 30 Days: No e-Cigarette/Vaping Use: Never Used Second Hand Smoke Exposure: No Use of substances other than those prescribed or required for medical reasons: No Advance Directives: No Advance Directives Information Provided: No service: No Current occupational status: disabled Cognitive needs: No Hearing needs: No Vision needs: Yes Meds Allergies Allergy/AdvReac Type Severity Reaction Status Date / Time iodine [IODINE] Allergy Intermediate HIVES, Verified 12/11/22 10:19 bloating latex [LATEX] Allergy Intermediate HIVES Verified 12/11/22 10:19 shellfish derived Allergy Intermediate ANAPHYLAXIS Verified 12/11/22 10:19 [SHELLFISH DERIVED] Active Medications: Current Medications Sodium Chloride (Ns) 1,000 mls @ 100 mls/hr IVCONT .Q10H JACKELINE Home Medications Medication Instructions Recorded Confirmed Last Taken Type multivitamin 1 tab PO DAILY 10/22/20 12/11/22 10/21/20 History epinephrine 0.3 mg/0.3 mL 0.3 mg IM Q10M PRN 01/14/21 12/11/22 Unknown History injection, auto-injector primidone 50 mg tablet 50 mg PO BID 07/09/21 12/11/22 Unknown History acetaminophen 650 mg 1,300 mg PO DAILY 08/05/21 12/11/22 Unknown History tablet,extended release omega-3 fatty acids 500 mg capsule 500 mg PO DAILY 08/05/21 12/11/22 Unknown History cetirizine 10 mg tablet 10 mg PO DAILY 05/15/22 12/11/22 Unknown History gabapentin 100 mg capsule 100 - 300 mg PO BEDTIME PRN anxiety 09/25/22 12/11/22 Unknown History gabapentin 300 mg capsule 300 mg PO BEDTIME PRN anxiety 09/25/22 12/11/22 Unknown History hydroxyzine pamoate 25 mg capsule 25 mg PO DAILY PRN anxiety 09/25/22 12/11/22 Unknown History duloxetine 20 mg capsule,delayed 40 mg PO 10/16/22 12/11/22 Unknown History release bupropion HCl 100 mg tablet 300 mg PO .COMPLEX 11/10/22 12/11/22 Unknown History Physical Exam Vital Signs and Narrative: Vital Signs: Last Vital Signs Temp 97.7 F 12/22/22 15:44 Pulse 80 12/22/22 20:27 Resp 18 12/22/22 21:11 BP 104/77 12/22/22 20:27 Pulse Ox 96 12/22/22 20:27 O2 Del Method Room Air 12/22/22 15:44 BMI result Body Mass Index 47.2 Middle-aged male lying in bed in no distress Neck supple, no JVD Irregularly irregular, S1-S2 heard Regular breath sounds bilaterally, no wheezing or crackles appreciated Abdomen soft nontender, no guarding, no rigidity Patient is awake, alert and oriented to self, place, time and person ; no focal motor deficit Psych: Normal mood Results Labs 12/22/22 16:48 12/22/22 16:39 Labs: Laboratory Results - last 24 hr 12/22/22 12/22/22 12/22/22 16:39 16:48 16:48 MCV 97.9 MCH 31.7 MCHC 32.4 RDW 12.4 Plt Count 225 MPV 10.9 Immature Gran % (Auto) 0.4 Neut % (Auto) 73.7 H Lymph % (Auto) 18.2 L Sierra % (Auto) 4.9 Eos % (Auto) 2.3 Baso % (Auto) 0.5 Lymph # (Auto) 1.7 Sierra # (Auto) 0.5 Eos # (Auto) 0.2 Baso # (Auto) 0.1 Abs Immat Gran (auto) 0.04 H Absolute Neuts (auto) 6.7 Absolute Nucleated RBC 0.000 Nucleated RBC % (auto) 0.0 PT 41.8 H INR 3.5 H Anion Gap 14 Estim Creat Clear Calc 128.5 Estimated GFR > 60 Random Glucose 169 H Lactic Acid Lactic Acid F/U @ 2Hr Calcium 8.8 Magnesium 1.9 Total Bilirubin 0.7 AST 127 H ALT 50 H Alkaline Phosphatase 60 Total Creatine Kinase 3834 H Troponin I High Sens C-Reactive Protein 1.33 H B-Natriuretic Peptide Total Protein 6.3 L Albumin 3.8 Urine Color Urine Appearance Urine pH Ur Specific [place] Urine Protein Urine Glucose (UA) Urine Ketones Urine Blood Urine Nitrite Ur Leukocyte Esterase COVID-19 (JESSICA) COVID-19 Clin Com 12/22/22 12/22/22 12/22/22 16:49 17:02 17:02 MCV MCH MCHC RDW Plt Count MPV Immature Gran % (Auto) Neut % (Auto) Lymph % (Auto) Sierra % (Auto) Eos % (Auto) Baso % (Auto) Lymph # (Auto) Sierra # (Auto) Eos # (Auto) Baso # (Auto) Abs Immat Gran (auto) Absolute Neuts (auto) Absolute Nucleated RBC Nucleated RBC % (auto) PT INR Anion Gap Estim Creat Clear Calc Estimated GFR Random Glucose Lactic Acid 2.5 H* Lactic Acid F/U @ 2Hr Calcium Magnesium Total Bilirubin AST ALT Alkaline Phosphatase Total Creatine Kinase Troponin I High Sens 7.5 C-Reactive Protein B-Natriuretic Peptide Total Protein Albumin Urine Color Urine Appearance Urine pH Ur Specific [place] Urine Protein Urine Glucose (UA) Urine Ketones Urine Blood Urine Nitrite Ur Leukocyte Esterase COVID-19 (JESSICA) Negative COVID-19 Clin Com See Note 12/22/22 12/22/22 12/22/22 17:02 19:26 19:57 MCV MCH MCHC RDW Plt Count MPV Immature Gran % (Auto) Neut % (Auto) Lymph % (Auto) Sierra % (Auto) Eos % (Auto) Baso % (Auto) Lymph # (Auto) Sierra # (Auto) Eos # (Auto) Baso # (Auto) Abs Immat Gran (auto) Absolute Neuts (auto) Absolute Nucleated RBC Nucleated RBC % (auto) PT INR Anion Gap Estim Creat Clear Calc Estimated GFR Random Glucose Lactic Acid Lactic Acid F/U @ 2Hr 1.4 Calcium Magnesium Total Bilirubin AST ALT Alkaline Phosphatase Total Creatine Kinase Troponin I High Sens C-Reactive Protein B-Natriuretic Peptide 43 Total Protein Albumin Urine Color Dark Yellow Urine Appearance Clear Urine pH 5.5 Ur Specific [place] >= 1.030 H Urine Protein Trace Urine Glucose (UA) Negative Urine Ketones Trace Urine Blood Negative Urine Nitrite Negative Ur Leukocyte Esterase Negative COVID-19 (JESSICA) COVID-19 Clin Com Imaging Radiologist's Impressions: Impressions Abdomen/Pelvis CT 12/22/22 18:56 IMPRESSION: 1. No acute traumatic finding of the chest, abdomen, or pelvis. 2. Adjacent left lower lobe pulmonary nodules measuring up to 0.4 cm. These are increased in size from the 2017 study. 3. Hepatic steatosis. According to the UPDATED 2017 Fleischner Society recommendations, the advised follow-up imaging for solid nodules < 6 mm is: LOW RISK PATIENT: No routine follow-up. HIGH RISK PATIENT: Optional CT at [address] 12/22/22 18:56 IMPRESSION: 1. No acute traumatic finding of the chest, abdomen, or pelvis. 2. Adjacent left lower lobe pulmonary nodules measuring up to 0.4 cm. These are increased in size from the 2017 study. 3. Hepatic steatosis. According to the UPDATED 2017 Fleischner Society recommendations, the advised follow-up imaging for solid nodules < 6 mm is: LOW RISK PATIENT: No routine follow-up. HIGH RISK PATIENT: Optional CT at [address] 12/22/22 19:01 IMPRESSION: 1. No evidence of acute intracranial hemorrhage or edematous territorial infarction. Mild underlying microangiopathy and generalized cerebral volume loss. 2. No evidence of acute fracture or traumatic subluxation of the cervical spine. Moderate multilevel degenerative spondyloarthropathy of the cervical spine. Head CT 12/22/22 19:01 IMPRESSION: 1. No evidence of acute intracranial hemorrhage or edematous territorial infarction. Mild underlying microangiopathy and generalized cerebral volume loss. 2. No evidence of acute fracture or traumatic subluxation of the cervical spine. Moderate multilevel degenerative spondyloarthropathy of the cervical spine. Assessment and Plan (1) Syncope: Status: Acute (2) Rhabdomyolysis: Status: Acute Plan This is a 72-year-old male with pertinent history of persistent atrial fibrillation on Coumadin, congestive heart failure with reduced ejection fraction, NOEMI on CPAP, mood disorder, essential hypertension who presents to the emergency department for evaluation of syncope. #. Orthostatic syncope: will admit patient and resuscitate with IV crystalloids. Hold medications that worsen orthostasis and repeat orthostatics in a.m. Consulting Cardiology to optimize #. acute traumatic rhabdomyolysis. Continue IV crystalloid resuscitation. Repeat CK in a.m. #. persistent atrial fibrillation. On Coumadin. #. Congestive heart failure with preserved ejection fraction. Not in exacerbation during admission. Hold ARB/ beta dean as above #. mood disorder. Continue home mood stabilizers med rec pending DVT prophylaxis: Coumadin Full code Cardiac diet Time Spent With Patient Time: Total time managing care of this patient today ____ minutes. Quality Stroke Does the patient have a stroke diagnosis?: No VTE Prior VTE?: No VTE Risk Level:: Medical - moderate - high VTE Device Contraindication: Treatment Not Indicated VTE Drug Contraindication: N/A - Med Ordered
[2022-12-22] MEDS: 0.9 % Sodium Chloride 1,000 ML 100 ML IVCONT (22:40)
[2022-12-23] VITALS (7 sets, daily range): BP systolic 122–149; BP diastolic 45–94; PULSE 66–87; RESP 16–18; TEMP 36.1–37.1; O2SAT 95–98
--- NOTE | 2022-12-23 00:41 | PC.NURSE ---
Report given to Zoe, Pt will be transported to ED overflow, Pt aware of plan.
[2022-12-23 06:09] LABS: MANUAL DIFF FLAG NO
[2022-12-23 06:14] LABS: Basophils Percent Auto 0.1 % (0-2); Hemoglobin 13.1 g/dl (14.0-18.0); Imm Gran Abs Auto 0.03 X10*3/uL (0.00-0.03); Imm Gran Pct Auto 0.4 % (0.0-0.4); Lymphocytes Absolute Auto 0.7 X10*3/uL (1.2-4.9); Lymphocytes Percent Auto 8.1 % (20-40); Mean Corpuscular HGB Conc 33.6 g/dl (31.0-36.0); Mean Corpuscular Hemoglobin 32.5 pg (27.0-33.0); Mean Corpuscular Volume 96.8 fL (80.0-98.0); Mean Platelet Volume 11.7 fL (9.4-12.4); Monocytes Absolute Auto 0.2 X10*3/uL (0.1-1.2); Neutrophils Absolute Auto 7.3 x10*3/uL (2.0-8.3); Neutrophils Percent Auto 89.4 % (45-73); Platelet Count 207 X10*3/uL (160-400); Red Blood Count 4.03 X10*6/uL (4.60-5.80); Red Cell Distribution Width 12.1 % (11.0-16.0); White Blood Count 8.1 X10*3/uL (4.8-10.8)
--- NOTE | 2022-12-23 06:18 | PC.NURSE ---
RECEIVED PATIENT FROM ED SETTING AND SETTLED INTO ROOM 1, PT ALERT AND ORIENTED, NO STATED DIZZINESS, VSS, #20 ANGIO AT RIGHT HAND, IVF NS 100ML/HR. PT WEARS OWN CPAP AT HOME AND INDEPENDENT WITH USE. RESTED WELL WITH NO S/SX RESP DISTRESS OR COMPLAINTS OF PAIN. MONITORED CLOSELY FOR SAFETY AND EDUCATED TO ALERT STAFF TO NEEDS.
[2022-12-23 06:37] LABS: Anion Gap 12 (12-20); Blood Urea Nitrogen 14 mg/dL (9-16); Calcium 8.4 mg/dL (8.4-10.2); Carbon Dioxide 25 mmol/L (22-29); Chloride 108 mmol/L (96-108); Creatinine Clr Calc Pharmacy 125.5; Estimated Glomerular Filt Rate > 60; Glucose Random 191 mg/dL (60-115); Potassium 4.5 mmol/L (3.3-5.1); Sodium 140 mmol/L (135-145)
[2022-12-23 07:39] LABS: Glucose, Whole Blood 171 mg/dL (60-115)
--- NOTE | 2022-12-23 08:29 | PHA.MEDREC ---
Pharmacy Consult ? Medication Reconciliation Pharmacy has completed the medication reconciliation. Spoke with patient in ED overflow who knew all medications
[2022-12-23] MEDS: 0.9 % Sodium Chloride 1,000 ML 100 ML IVCONT ×2 (08:37→17:51)
[2022-12-23 11:31] LABS: Glucose, Whole Blood 133 mg/dL (60-115)
[2022-12-23 13:15] LABS: INTERNATIONAL NORM RATIO 3.3 (0.9-1.1); Prothrombin Time 40.3 SEC (10.0-13.1)
[2022-12-23] MEDS: Primidone 50 MG TABLET PO ×2 (13:21→21:37)
[2022-12-23] MEDS: ondansetron HCL 4 MG/2 ML VIAL IVPUSH (13:21)
[2022-12-23] MEDS: oxyCODONE HCl Immed Release 5 MG TABLET PO ×2 (13:21→21:41)
[2022-12-23] MEDS: buPROPion HCL 100 MG TABLET 200 MG PO (13:22)
--- NOTE | 2022-12-23 13:33 | P.CONCA_ITS ---
History of Present Illness History of Present Illness Date of Service: 12/23/22 Requesting physician: Danielito Villafuerte Chief complaint: Syncope Narrative: 72-year-old gentleman with known history of cardiomyopathy who follows with Dr. Lewis. He is presenting with syncope. He said he tried to get up yesterday and felt some dizziness and then found himself on the floor. It appears he was on the floor for some time and had some muscle injury because his CPKs were e levated when he got admitted. Is denying any chest discomfort shortness of breath. Admitting team documented that he had orthostatic vital signs positive. He was given IV fluids with improvement his blood pressure. He is saying that his blood pressure was low at home but he is describing blood pressure readings of 50/20 which sound quite erroneous. In any case his carvedilol was held. He was given IV fluids and he is feeling better. His blood pressure readings are normal. Overall asymptomatic currently. COUNT INCLUDES THE [facility] Past Medical History Medical History CAD (coronary artery disease) Cardiomyopathy COPD (chronic obstructive pulmonary disease) Current use of anticoagulant therapy Diabetes Dyspnea Heart failure with reduced ejection fraction HLD (hyperlipidemia) HTN (hypertension) Morbid obesity Obstructive sleep apnea NOEMI on CPAP Persistent atrial fibrillation Family History Family History Father HTN (hypertension) Diabetes mellitus Cardiac disease Bone cancer Substance use disorder Mother HTN (hypertension) Lung cancer Surgical History Surgical History History of ankle surgery History of knee surgery Social History Social History Housing: Apartment Alcohol intake: never Patient Tobacco Use Status: Former Tobacco user Years Smoked: 30 yrs Smoked in Last 30 Days: No e-Cigarette/Vaping Use: Never Used Second Hand Smoke Exposure: No Use of substances other than those prescribed or required for medical reasons: No Advance Directives: No Advance Directives Information Provided: No Nutrition Risks: No Nutritional Risk service: No Current occupational status: disabled Cognitive needs: No Hearing needs: No Vision needs: Yes Meds Allergies Allergy/AdvReac Type Severity Reaction Status Date / Time iodine [IODINE] Allergy Intermediate HIVES, Verified 12/11/22 10:19 bloating latex [LATEX] Allergy Intermediate HIVES Verified 12/11/22 10:19 shellfish derived Allergy Intermediate ANAPHYLAXIS Verified 12/11/22 10:19 [SHELLFISH DERIVED] Active Medications: Current Medications Acetaminophen (Acetaminophen 325 Mg Tablet) 650 mg PO Q6H PRN PRN Reason: Pain, Mild (Pain Scale 1-3) Acetaminophen (Acetaminophen Supp 650 Mg Supp.Rect) 650 mg MD Q6H PRN PRN Reason: Pain, Mild (Pain Scale 1-3) Atorvastatin Calcium (Atorvastatin Calcium 10 Mg Tablet) 10 mg PO BEDTIME JACKELINE Bupropion HCl (Bupropion Hcl 100 Mg Tablet) 100 mg PO BEDTIME JACKELINE Bupropion HCl (Bupropion Hcl 100 Mg Tablet) 200 mg PO DAILY [facility] Last Admin: 12/23/22 13:22 Dose: 200 mg Duloxetine HCl (Duloxetine Hcl 20 Mg Capsule.Dr) 40 mg PO DAILY [facility] Gabapentin (Gabapentin 100 Mg Capsule) 100 mg PO BEDTIME JACKELINE Gabapentin (Gabapentin 300 Mg Capsule) 300 mg PO BEDTIME JACKELINE Hydroxyzine HCl (Hydroxyzine Hcl 25 Mg Tablet) 25 mg PO BEDTIME [facility] Sodium Chloride (Ns) 1,000 mls @ 100 mls/hr IVCONT .Q10H [facility] Last Admin: 12/23/22 08:37 Dose: 100 mls/hr Loratadine (Loratadine 10 Mg Tablet) 10 mg PO DAILY [facility] Melatonin (Melatonin 3 Mg Tablet) 6 mg PO BEDTIME PRN PRN Reason: Insomnia Ondansetron HCl (Ondansetron Hcl 4 Mg/2 Ml Vial) 4 mg IVPUSH Q8H PRN PRN Reason: Nausea and Vomiting Last Admin: 12/23/22 13:21 Dose: 4 mg Oxycodone HCl (Oxycodone Hcl Immed Release 5 Mg Tablet) 5 mg PO Q4H PRN PRN Reason: Pain, Moderate(Pain Scale 4-6) Last Admin: 12/23/22 13:21 Dose: 5 mg Pharmacy Consult (Consult Rx Perform Med Rec) 1 each MISCELLANE ONCE PRN PRN Reason: Consult order Primidone (Primidone 50 Mg Tablet) 50 mg PO BID [facility] Last Admin: 12/23/22 13:21 Dose: 50 mg Sodium Chloride (0.9 % Sodium Chloride Flush 3 Ml Syringe) 3 ml IVFLUSH QSHIFT [facility] Last Admin: 12/23/22 08:01 Dose: Not Given Tizanidine HCl (Tizanidine Hcl 4 Mg Tablet) 4 mg PO BEDTIME JACKELINE Valsartan (Valsartan 40 Mg Tablet) 20 mg PO BEDTIME [facility]; Protocol Warfarin Sodium (Warfarin Sodium 4 Mg Tablet) 4 mg PO TUTHSA@1800 JACKELINE Warfarin Sodium (Warfarin Sodium 6 Mg Tablet) 6 mg PO SUMOWEFR@1800 [facility] Home Medications Medication Instructions Recorded Confirmed Last Taken Type multivitamin 1 tab PO DAILY 10/22/20 12/23/22 12/20/22 History epinephrine 0.3 mg/0.3 mL 0.3 mg IM Q10M PRN Anaphylaxis 01/14/21 12/23/22 12/20/22 History injection, auto-injector primidone 50 mg tablet 50 mg PO BID 07/09/21 12/23/22 12/20/22 History acetaminophen 650 mg 1,300 mg PO DAILY 08/05/21 12/23/22 12/20/22 History tablet,extended release omega-3 fatty acids 500 mg capsule 500 mg PO DAILY 08/05/21 12/23/22 12/20/22 History cetirizine 10 mg tablet 10 mg PO DAILY 05/15/22 12/23/22 12/20/22 History gabapentin 100 mg capsule 100 mg PO BEDTIME 09/25/22 12/23/22 12/20/22 History duloxetine 20 mg capsule,delayed 40 mg PO DAILY 10/16/22 12/23/22 12/20/22 History release bupropion HCl 100 mg tablet 200 mg PO DAILY 11/10/22 12/23/22 12/20/22 History bupropion HCl 100 mg tablet 100 mg PO BEDTIME 12/23/22 12/23/22 12/20/22 History cholecalciferol (vitamin D3) 25 25 mcg PO DAILY 12/23/22 12/23/22 12/20/22 History mcg (1,000 unit) tablet (Vitamin D3) furosemide 20 mg tablet 20 mg PO MOWEFR@0900 12/23/22 12/23/22 12/20/22 History gabapentin 300 mg capsule 300 mg PO BEDTIME 12/23/22 12/23/22 12/20/22 History hydroxyzine HCl 25 mg tablet 25 mg PO BEDTIME 12/23/22 12/23/22 12/20/22 History tizanidine 4 mg tablet 4 mg PO BEDTIME 12/23/22 12/23/22 12/20/22 History valsartan 40 mg tablet 20 mg PO BEDTIME 12/23/22 12/23/22 12/20/22 History warfarin 4 mg tablet 4 mg PO TUTHSA@1800 12/23/22 12/20/22 History warfarin 4 mg tablet 4 mg PO TUTHSA@1800 12/23/22 12/23/22 12/20/22 History warfarin 4 mg tablet 6 mg PO SUMOWEFR@1800 12/23/22 12/23/22 12/20/22 History Physical Exam Vital Signs: Vital Signs: Last Vital Signs Temp 97 F 12/23/22 08:12 Pulse 74 12/23/22 08:12 Resp 18 12/23/22 08:12 BP 129/54 L 12/23/22 08:12 Pulse Ox 98 12/23/22 08:12 O2 Del Method Room Air 12/23/22 08:12 BMI result Body Mass Index 47.2 GENERAL APPEARANCE: in no acute distress, morbidly obese. NECK: no carotid bruit, no jugular venous distention. SKIN: no suspicious lesions, warm and dry. HEART: no murmurs, irregular rate and rhythm. LUNGS: clear to auscultation bilaterally. ABDOMEN: soft, nontender. EXTREMITIES: Trace edema. PERIPHERAL PULSES: equal. NEUROLOGIC: No gross deficits, AAO X 3 Objective Labs and Meds 12/23/22 05:53 12/23/22 05:53 Lab results: Laboratory Results - last 24 hr 12/22/22 12/22/22 12/22/22 16:39 16:48 16:48 WBC 9.1 RBC 4.38 L Hgb 13.9 L Hct 42.9 MCV 97.9 MCH 31.7 MCHC 32.4 RDW 12.4 Plt Count 225 MPV 10.9 Immature Gran % (Auto) 0.4 Neut % (Auto) 73.7 H Lymph % (Auto) 18.2 L [place] % (Auto) 4.9 Eos % (Auto) 2.3 Baso % (Auto) 0.5 Lymph # (Auto) 1.7 [place] # (Auto) 0.5 Eos # (Auto) 0.2 Baso # (Auto) 0.1 Abs Immat Gran (auto) 0.04 H Absolute Neuts (auto) 6.7 Absolute Nucleated RBC 0.000 Nucleated RBC % (auto) 0.0 PT 41.8 H INR 3.5 H Sodium 140 Potassium 3.9 Chloride 104 Carbon Dioxide 26 Anion Gap 14 BUN 16 Creatinine 0.83 Estim Creat Clear Calc 128.5 Estimated GFR > 60 POC Glucose Random Glucose 169 H Lactic Acid Lactic Acid F/U @ 2Hr Calcium 8.8 Magnesium 1.9 Total Bilirubin 0.7 AST 127 H ALT 50 H Alkaline Phosphatase 60 Total Creatine Kinase 3834 H Troponin I High Sens C-Reactive Protein 1.33 H B-Natriuretic Peptide Total Protein 6.3 L Albumin 3.8 Urine Color Urine Appearance Urine pH Ur Specific [place] Urine Protein Urine Glucose (UA) Urine Ketones Urine Blood Urine Nitrite Ur Leukocyte Esterase COVID-19 (JESSICA) [employer] Info 12/22/22 12/22/22 12/22/22 16:49 17:02 17:02 WBC RBC Hgb Hct MCV MCH MCHC RDW Plt Count MPV Immature Gran % (Auto) Neut % (Auto) Lymph % (Auto) [place] % (Auto) Eos % (Auto) Baso % (Auto) Lymph # (Auto) [place] # (Auto) Eos # (Auto) Baso # (Auto) Abs Immat Gran (auto) Absolute Neuts (auto) Absolute Nucleated RBC Nucleated RBC % (auto) PT INR Sodium Potassium Chloride Carbon Dioxide Anion Gap BUN Creatinine Estim Creat Clear Calc Estimated GFR POC Glucose Random Glucose Lactic Acid 2.5 H* Lactic Acid F/U @ 2Hr Calcium Magnesium Total Bilirubin AST ALT Alkaline Phosphatase Total Creatine Kinase Troponin I High Sens 7.5 C-Reactive Protein B-Natriuretic Peptide Total Protein Albumin Urine Color Urine Appearance Urine pH Ur Specific [place] Urine Protein Urine Glucose (UA) Urine Ketones Urine Blood Urine Nitrite Ur Leukocyte Esterase COVID-19 (JESSICA) Negative [email or web address] See Note 12/22/22 12/22/22 12/22/22 17:02 19:26 19:57 WBC RBC Hgb Hct MCV MCH MCHC RDW Plt Count MPV Immature Gran % (Auto) Neut % (Auto) Lymph % (Auto) [place] % (Auto) Eos % (Auto) Baso % (Auto) Lymph # (Auto) [place] # (Auto) Eos # (Auto) Baso # (Auto) Abs Immat Gran (auto) Absolute Neuts (auto) Absolute Nucleated RBC Nucleated RBC % (auto) PT INR Sodium Potassium Chloride Carbon Dioxide Anion Gap BUN Creatinine Estim Creat Clear Calc Estimated GFR POC Glucose Random Glucose Lactic Acid Lactic Acid F/U @ 2Hr 1.4 Calcium Magnesium Total Bilirubin AST ALT Alkaline Phosphatase Total Creatine Kinase Troponin I High Sens C-Reactive Protein B-Natriuretic Peptide 43 Total Protein Albumin Urine Color Dark Yellow Urine Appearance Clear Urine pH 5.5 Ur Specific [place] >= 1.030 H Urine Protein Trace Urine Glucose (UA) Negative Urine Ketones Trace Urine Blood Negative Urine Nitrite Negative Ur Leukocyte Esterase Negative COVID-19 (JESSICA) COVID-19 [employer] 12/23/22 12/23/22 12/23/22 05:53 05:53 07:33 WBC 8.1 RBC 4.03 L Hgb 13.1 L Hct 39.0 L MCV 96.8 MCH 32.5 MCHC 33.6 RDW 12.1 Plt Count 207 MPV 11.7 Immature Gran % (Auto) 0.4 Neut % (Auto) 89.4 H Lymph % (Auto) 8.1 L [place] % (Auto) 2.0 Eos % (Auto) 0.0 Baso % (Auto) 0.1 Lymph # (Auto) 0.7 L [place] # (Auto) 0.2 Eos # (Auto) 0.0 Baso # (Auto) 0.0 Abs Immat Gran (auto) 0.03 Absolute Neuts (auto) 7.3 Absolute Nucleated RBC 0.000 Nucleated RBC % (auto) 0.0 PT INR Sodium 140 Potassium 4.5 Chloride 108 Carbon Dioxide 25 Anion Gap 12 BUN 14 Creatinine 0.85 Estim Creat Clear Calc 125.5 Estimated GFR > 60 POC Glucose 171 H Random Glucose 191 H Lactic Acid Lactic Acid F/U @ 2Hr Calcium 8.4 Magnesium Total Bilirubin AST ALT Alkaline Phosphatase Total Creatine Kinase 2077 H Troponin I High Sens C-Reactive Protein B-Natriuretic Peptide Total Protein Albumin Urine Color Urine Appearance Urine pH Ur Specific [place] Urine Protein Urine Glucose (UA) Urine Ketones Urine Blood Urine Nitrite Ur Leukocyte Esterase COVID-19 (JESSICA) COVID-19 [employer] 12/23/22 12/23/22 11:26 12:49 WBC RBC Hgb Hct MCV MCH MCHC RDW Plt Count MPV Immature Gran % (Auto) Neut % (Auto) Lymph % (Auto) [place] % (Auto) Eos % (Auto) Baso % (Auto) Lymph # (Auto) [place] # (Auto) Eos # (Auto) Baso # (Auto) Abs Immat Gran (auto) Absolute Neuts (auto) Absolute Nucleated RBC Nucleated RBC % (auto) PT 40.3 H INR 3.3 H Sodium Potassium Chloride Carbon Dioxide Anion Gap BUN Creatinine Estim Creat Clear Calc Estimated GFR POC Glucose 133 H Random Glucose Lactic Acid Lactic Acid F/U @ 2Hr Calcium Magnesium Total Bilirubin AST ALT Alkaline Phosphatase Total Creatine Kinase Troponin I High Sens C-Reactive Protein B-Natriuretic Peptide Total Protein Albumin Urine Color Urine Appearance Urine pH Ur Specific [place] Urine Protein Urine Glucose (UA) Urine Ketones Urine Blood Urine Nitrite Ur Leukocyte Esterase COVID-19 (JESSICA) COVID-19 Clin Com Imaging Radiologist's impression: Impressions Abdomen/Pelvis CT 12/22/22 18:56 IMPRESSION: 1. No acute traumatic finding of the chest, abdomen, or pelvis. 2. Adjacent left lower lobe pulmonary nodules measuring up to 0.4 cm. These are increased in size from the 2017 study. 3. Hepatic steatosis. According to the UPDATED 2017 Fleischner Society recommendations, the advised follow-up imaging for solid nodules < 6 mm is: LOW RISK PATIENT: No routine follow-up. HIGH RISK PATIENT: Optional CT at [address] 12/22/22 18:56 IMPRESSION: 1. No acute traumatic finding of the chest, abdomen, or pelvis. 2. Adjacent left lower lobe pulmonary nodules measuring up to 0.4 cm. These are increased in size from the 2017 study. 3. Hepatic steatosis. According to the UPDATED 2017 Fleischner Society recommendations, the advised follow-up imaging for solid nodules < 6 mm is: LOW RISK PATIENT: No routine follow-up. HIGH RISK PATIENT: Optional CT at [address] 12/22/22 19:01 IMPRESSION: 1. No evidence of acute intracranial hemorrhage or edematous territorial infarction. Mild underlying microangiopathy and generalized cerebral volume loss. 2. No evidence of acute fracture or traumatic subluxation of the cervical spine. Moderate multilevel degenerative spondyloarthropathy of the cervical spine. Head CT 12/22/22 19:01 IMPRESSION: 1. No evidence of acute intracranial hemorrhage or edematous territorial infarction. Mild underlying microangiopathy and generalized cerebral volume loss. 2. No evidence of acute fracture or traumatic subluxation of the cervical spine. Moderate multilevel degenerative spondyloarthropathy of the cervical spine. Knee X-Ray 12/22/22 21:06 IMPRESSION: Mild degenerative changes of the lateral and patellofemoral compartments. Assessment and Plan (1) Syncope: Status: Acute (2) Rhabdomyolysis: Status: Acute (3) Cardiomyopathy: Status: Acute Plan 72-year-old gentleman presenting with syncope and fall. Clinical story sounds like orthostasis and he has been given IV fluids and has been off his medications currently. I think further IV fluids can be stopped. He can take oral fluids. Hold the furosemide for now. I think carvedilol can be decreased to 6.25 mg twice a day. He should have a digoxin level checked before resuming his digoxin. Would favor using it on Wednesday and Wednesday because there is interaction between digoxin and carvedilol. He had echocardiography recently. Does not need repeat echocardiogram. If with hydration and adjustment of medications he is feeling better than can be discharged home. Hold furosemide for now. Thank you for allowing me to participate in the care of your patient. Please feel free to contact me if you have any questions. Time Spent With Patient Time: Total time managing care of this patient today ____ minutes. Procedures Date of Service Date of Service: 12/23/22
--- NOTE | 2022-12-23 16:00 | MHC.EDTECH ---
THIS PCT ASSUMED CARE OF PT AT 1500 ,1600 ,ROUNGING DONE ,VITALS SIGN TAKEN ,PT UP WALKING AROUND ,PT ASKED FOR ICE CHIPS .
--- NOTE | 2022-12-23 16:22 | HO.PM.IMPN ---
Subjective Subjective Date of Service: 12/23/22 Interval History: No further syncopal episodes overnight. The only issue is back and knees after fall Review of Systems Denies chest pain Denies shortness of breath Denies nausea vomiting diarrhea Denies fever chills Physical Exam Vital Signs: Vital Signs: Last Vital Signs Temp 97 F 12/23/22 08:12 Pulse 74 12/23/22 08:12 Resp 18 12/23/22 08:12 BP 129/54 L 12/23/22 08:12 Pulse Ox 98 12/23/22 08:12 O2 Del Method Room Air 12/23/22 08:12 BMI result Body Mass Index 47.2 Const: Other: Awake alert oriented x3 no acute distress Resp: Other: Clear to auscultation bilaterally no rales rhonchi or wheezes Cardio: Other: No S4; positive S1-S2; no S3 murmurs rubs or gallops GI: Other: Soft nontender nondistended normoactive bowel sounds Extrem: Other: No edema bilaterally Objective Data Active Medications Acetaminophen (Acetaminophen 325 Mg Tablet) 650 mg PO Q6H PRN PRN Reason: Pain, Mild (Pain Scale 1-3) Acetaminophen (Acetaminophen Supp 650 Mg Supp.Rect) 650 mg AR Q6H PRN PRN Reason: Pain, Mild (Pain Scale 1-3) Atorvastatin Calcium (Atorvastatin Calcium 10 Mg Tablet) 10 mg PO BEDTIME JACKELINE Bupropion HCl (Bupropion Hcl 100 Mg Tablet) 100 mg PO BEDTIME JACKELINE Bupropion HCl (Bupropion Hcl 100 Mg Tablet) 200 mg PO DAILY [facility] Last Admin: 12/23/22 13:22 Dose: 200 mg Documented By: ASIM Duloxetine HCl (Duloxetine Hcl 20 Mg Capsule.Dr) 40 mg PO DAILY [facility] Last Admin: 12/23/22 13:41 Dose: Not Given Documented By: ASIM Non-Admin Reason: See Note Gabapentin (Gabapentin 100 Mg Capsule) 100 mg PO BEDTIME JACKELINE Gabapentin (Gabapentin 300 Mg Capsule) 300 mg PO BEDTIME JACKELINE Hydroxyzine HCl (Hydroxyzine Hcl 25 Mg Tablet) 25 mg PO BEDTIME JACKELINE Sodium Chloride (Ns) 1,000 mls @ 100 mls/hr IVCONT .Q10H [facility] Last Admin: 12/23/22 08:37 Dose: 100 mls/hr Documented By: ASIM Loratadine (Loratadine 10 Mg Tablet) 10 mg PO DAILY [facility] Melatonin (Melatonin 3 Mg Tablet) 6 mg PO BEDTIME PRN PRN Reason: Insomnia Ondansetron HCl (Ondansetron Hcl 4 Mg/2 Ml Vial) 4 mg IVPUSH Q8H PRN PRN Reason: Nausea and Vomiting Last Admin: 12/23/22 13:21 Dose: 4 mg Documented By: ASIM Oxycodone HCl (Oxycodone Hcl Immed Release 5 Mg Tablet) 5 mg PO Q4H PRN PRN Reason: Pain, Moderate(Pain Scale 4-6) Last Admin: 12/23/22 13:21 Dose: 5 mg Documented By: ASIM Pharmacy Consult (Consult Rx Perform Med Rec) 1 each MISCELLANE ONCE PRN PRN Reason: Consult order Primidone (Primidone 50 Mg Tablet) 50 mg PO BID [facility] Last Admin: 12/23/22 13:21 Dose: 50 mg Documented By: ASIM Sodium Chloride (0.9 % Sodium Chloride Flush 3 Ml Syringe) 3 ml IVFLUSH QSHIFT [facility] Last Admin: 12/23/22 15:41 Dose: Not Given Documented By: ASIM Non-Admin Reason: IV Running Tizanidine HCl (Tizanidine Hcl 4 Mg Tablet) 4 mg PO BEDTIME [facility] Valsartan (Valsartan 40 Mg Tablet) 20 mg PO BEDTIME [facility]; Protocol Warfarin Sodium (Warfarin Sodium 4 Mg Tablet) 4 mg PO TUTHSA@1800 [facility] Warfarin Sodium (Warfarin Sodium 6 Mg Tablet) 6 mg PO SUMOWEFR@1800 [facility] Labs 12/23/22 05:53 12/23/22 05:53 Labs: Laboratory Results - last 24 hr 12/22/22 12/22/22 12/22/22 16:39 16:48 16:48 MCV 97.9 MCH 31.7 MCHC 32.4 RDW 12.4 Plt Count 225 MPV 10.9 Immature Gran % (Auto) 0.4 Neut % (Auto) 73.7 H Lymph % (Auto) 18.2 L [place] % (Auto) 4.9 Eos % (Auto) 2.3 Baso % (Auto) 0.5 Lymph # (Auto) 1.7 [place] # (Auto) 0.5 Eos # (Auto) 0.2 Baso # (Auto) 0.1 Abs Immat Gran (auto) 0.04 H Absolute Neuts (auto) 6.7 Absolute Nucleated RBC 0.000 Nucleated RBC % (auto) 0.0 PT 41.8 H INR 3.5 H Anion Gap 14 Estim Creat Clear Calc 128.5 Estimated GFR > 60 POC Glucose Random Glucose 169 H Lactic Acid Lactic Acid F/U @ 2Hr Calcium 8.8 Magnesium 1.9 Total Bilirubin 0.7 AST 127 H ALT 50 H Alkaline Phosphatase 60 Total Creatine Kinase 3834 H Troponin I High Sens C-Reactive Protein 1.33 H B-Natriuretic Peptide Total Protein 6.3 L Albumin 3.8 Urine Color Urine Appearance Urine pH Ur Specific [place] Urine Protein Urine Glucose (UA) Urine Ketones Urine Blood Urine Nitrite Ur Leukocyte Esterase COVID-19 (JESSICA) COVID-19 [employer] 12/22/22 12/22/22 12/22/22 16:49 17:02 17:02 MCV MCH MCHC RDW Plt Count MPV Immature Gran % (Auto) Neut % (Auto) Lymph % (Auto) [place] % (Auto) Eos % (Auto) Baso % (Auto) Lymph # (Auto) [place] # (Auto) Eos # (Auto) Baso # (Auto) Abs Immat Gran (auto) Absolute Neuts (auto) Absolute Nucleated RBC Nucleated RBC % (auto) PT INR Anion Gap Estim Creat Clear Calc Estimated GFR POC Glucose Random Glucose Lactic Acid 2.5 H* Lactic Acid F/U @ 2Hr Calcium Magnesium Total Bilirubin AST ALT Alkaline Phosphatase Total Creatine Kinase Troponin I High Sens 7.5 C-Reactive Protein B-Natriuretic Peptide Total Protein Albumin Urine Color Urine Appearance Urine pH Ur Specific [place] Urine Protein Urine Glucose (UA) Urine Ketones Urine Blood Urine Nitrite Ur Leukocyte Esterase COVID-19 (JESSICA) Negative COVID-19 [employer] See Note 12/22/22 12/22/22 12/22/22 17:02 19:26 19:57 MCV MCH MCHC RDW Plt Count MPV Immature Gran % (Auto) Neut % (Auto) Lymph % (Auto) [place] % (Auto) Eos % (Auto) Baso % (Auto) Lymph # (Auto) [place] # (Auto) Eos # (Auto) Baso # (Auto) Abs Immat Gran (auto) Absolute Neuts (auto) Absolute Nucleated RBC Nucleated RBC % (auto) PT INR Anion Gap Estim Creat Clear Calc Estimated GFR POC Glucose Random Glucose Lactic Acid Lactic Acid F/U @ 2Hr 1.4 Calcium Magnesium Total Bilirubin AST ALT Alkaline Phosphatase Total Creatine Kinase Troponin I High Sens C-Reactive Protein B-Natriuretic Peptide 43 Total Protein Albumin Urine Color Dark Yellow Urine Appearance Clear Urine pH 5.5 Ur Specific [place] >= 1.030 H Urine Protein Trace Urine Glucose (UA) Negative Urine Ketones Trace Urine Blood Negative Urine Nitrite Negative Ur Leukocyte Esterase Negative COVID-19 (JESSICA) COVID-19 [employer] 12/23/22 12/23/22 12/23/22 05:53 05:53 07:33 MCV 96.8 MCH 32.5 MCHC 33.6 RDW 12.1 Plt Count 207 MPV 11.7 Immature Gran % (Auto) 0.4 Neut % (Auto) 89.4 H Lymph % (Auto) 8.1 L [place] % (Auto) 2.0 Eos % (Auto) 0.0 Baso % (Auto) 0.1 Lymph # (Auto) 0.7 L [place] # (Auto) 0.2 Eos # (Auto) 0.0 Baso # (Auto) 0.0 Abs Immat Gran (auto) 0.03 Absolute Neuts (auto) 7.3 Absolute Nucleated RBC 0.000 Nucleated RBC % (auto) 0.0 PT INR Anion Gap 12 Estim Creat Clear Calc 125.5 Estimated GFR > 60 POC Glucose 171 H Random Glucose 191 H Lactic Acid Lactic Acid F/U @ 2Hr Calcium 8.4 Magnesium Total Bilirubin AST ALT Alkaline Phosphatase Total Creatine Kinase 2077 H Troponin I High Sens C-Reactive Protein B-Natriuretic Peptide Total Protein Albumin Urine Color Urine Appearance Urine pH Ur Specific [place] Urine Protein Urine Glucose (UA) Urine Ketones Urine Blood Urine Nitrite Ur Leukocyte Esterase COVID-19 (JESSICA) COVID-19 [employer] 12/23/22 12/23/22 11:26 12:49 MCV MCH MCHC RDW Plt Count MPV Immature Gran % (Auto) Neut % (Auto) Lymph % (Auto) [place] % (Auto) Eos % (Auto) Baso % (Auto) Lymph # (Auto) [place] # (Auto) Eos # (Auto) Baso # (Auto) Abs Immat Gran (auto) Absolute Neuts (auto) Absolute Nucleated RBC Nucleated RBC % (auto) PT 40.3 H INR 3.3 H Anion Gap Estim Creat Clear Calc Estimated GFR POC Glucose 133 H Random Glucose Lactic Acid Lactic Acid F/U @ 2Hr Calcium Magnesium Total Bilirubin AST ALT Alkaline Phosphatase Total Creatine Kinase Troponin I High Sens C-Reactive Protein B-Natriuretic Peptide Total Protein Albumin Urine Color Urine Appearance Urine pH Ur Specific [place] Urine Protein Urine Glucose (UA) Urine Ketones Urine Blood Urine Nitrite Ur Leukocyte Esterase COVID-19 (JESSICA) COVID-19 Clin Com Assessment and Plan (1) Syncope: Status: Acute (2) Rhabdomyolysis: Status: Acute (3) Heart failure with reduced ejection fraction: Status: Acute (4) Persistent atrial fibrillation: Status: Acute Plan This is a 72-year-old male with pertinent history of persistent atrial fibrillation on Coumadin, congestive heart failure with reduced ejection fraction, NOEMI on CPAP, mood disorder, essential hypertension who presents to the emergency department for evaluation of syncope. 1.Orthostatic syncope -euvolemic. .. Will hold Lasix as per Cardiology recommendation -decrease Coreg to 6.25 mg b.i.d. and follow-up -follow-up dates level and dose as appropriate 2.Acute traumatic rhabdomyolysis -trending downward; will DC IV fluids and follow in a.m. 3.Persistent atrial fibrillation -rate control -check did level in a.m. 4.Congestive heart failure with preserved ejection fraction -not active is this time -med changes as per Cardiology Coumadin Full code Requires ongoing hospitalization for titrating meds to prevent orthostatics syncope Time Spent With Patient Time: Total time managing care of this patient today ____ minutes. Quality Stroke Does the patient have a stroke diagnosis?: No VTE Prior VTE?: No VTE Risk Level:: Medical - moderate - high VTE Device Contraindication: Treatment Not Indicated VTE Drug Contraindication: N/A - Med Ordered
--- NOTE | 2022-12-23 16:53 | MHC.EDTECH ---
PT ATE 100 % OF OF DINNER ,DRANK 700 ML FLUIDS .
--- NOTE | 2022-12-23 18:46 | PC.NURSE ---
report given to JESUS Hernandez. pt will transfer to room 373 by transporter. pt aware of plan
[2022-12-23] MEDS: Gabapentin 100 MG CAPSULE PO (21:37)
[2022-12-23] MEDS: Gabapentin 300 MG CAPSULE PO (21:37)
[2022-12-23] MEDS: Atorvastatin Calcium 10 MG TABLET PO (21:37)
[2022-12-23] MEDS: Valsartan 40 MG TABLET 20 MG PO (21:37)
[2022-12-23] MEDS: buPROPion HCL 100 MG TABLET PO (21:37)
[2022-12-23] MEDS: hydrOXYzine HCL 25 MG TABLET PO (23:58)
[2022-12-23] MEDS: TiZANidine HCL 4 MG TABLET PO (23:58)
[2022-12-24] VITALS: BP 138/63; PULSE 86; RESP 16; TEMP 36.2; O2SAT 94
[2022-12-24] MEDS: 0.9 % Sodium Chloride 1,000 ML 100 ML IVCONT (04:00)
[2022-12-24 05:47] LABS: MANUAL DIFF FLAG NO
[2022-12-24 05:50] LABS: Basophils Absolute Auto 0.1 X10*3/uL (0.0-0.2); Basophils Percent Auto 0.6 % (0-2); Eosinophils Absolute Auto 0.1 X10*3/uL (0.0-0.4); Eosinophils Percent Auto 1.5 % (0-4); Hematocrit 37.3 % (42.0-52.0); Hemoglobin 12.4 g/dl (14.0-18.0); Imm Gran Abs Auto 0.02 X10*3/uL (0.00-0.03); Imm Gran Pct Auto 0.3 % (0.0-0.4); Lymphocytes Absolute Auto 2.2 X10*3/uL (1.2-4.9); Lymphocytes Percent Auto 28.2 % (20-40); Mean Corpuscular HGB Conc 33.2 g/dl (31.0-36.0); Mean Corpuscular Volume 96.1 fL (80.0-98.0); Mean Platelet Volume 10.9 fL (9.4-12.4); Monocytes Absolute Auto 0.4 X10*3/uL (0.1-1.2); Monocytes Percent Auto 5.6 % (2-11); Neutrophils Percent Auto 63.8 % (45-73); Platelet Count 191 X10*3/uL (160-400); Red Blood Count 3.88 X10*6/uL (4.60-5.80); Red Cell Distribution Width 12.5 % (11.0-16.0); White Blood Count 7.8 X10*3/uL (4.8-10.8)
[2022-12-24 05:55] LABS: INTERNATIONAL NORM RATIO 2.5 (0.9-1.1); Prothrombin Time 29.6 SEC (10.0-13.1)
[2022-12-24 06:07] LABS: Alanine Aminotransferase 41 U/L (0-40); Albumin Level 3.3 g/dL (3.5-5.0); Alkaline Phosphatase 50 U/L (39-117); Anion Gap 10 (12-20); Aspartate Amino Transferase 54 U/L (5-37); Bilirubin Total 0.6 mg/dL (0.0-1.0); Blood Urea Nitrogen 12 mg/dL (9-16); Calcium 8.1 mg/dL (8.4-10.2); Carbon Dioxide 27 mmol/L (22-29); Chloride 107 mmol/L (96-108); Estimated Glomerular Filt Rate > 60; Glucose Fasting 152 mg/dL (60-99); Potassium 4.4 mmol/L (3.3-5.1); Sodium 140 mmol/L (135-145); Total Protein 5.4 g/dL (6.5-8.0)
[2022-12-24 07:11] VITALS: BP 135/76; PULSE 68; RESP 18; TEMP 36.1; O2SAT 98
[2022-12-24] MEDS: Acetaminophen 325 MG TABLET 650 MG PO ×2 (09:03→21:19)
[2022-12-24] MEDS: 0.9 % Sodium Chloride Flush 3 ML SYRINGE IVFLUSH ×3 (09:03→21:16)
[2022-12-24] MEDS: Primidone 50 MG TABLET PO ×2 (09:03→21:15)
[2022-12-24] MEDS: DULoxetine HCl 20 MG CAPSULE.DR 40 MG PO (09:05)
[2022-12-24] MEDS: Loratadine 10 MG TABLET PO (09:06)
[2022-12-24] MEDS: buPROPion HCL 100 MG TABLET 200 MG PO (09:06)
[2022-12-24 11:57] VITALS: BP 122/56; PULSE 62
[2022-12-24] MEDS: carvediloL 6.25 MG TABLET PO ×2 (12:00→21:09)
--- NOTE | 2022-12-24 12:39 | HO.PM.IMPN ---
Subjective Subjective Date of Service: 12/24/22 Interval History: Uneventful evening. Rate control adequate. No further syncopal episodes Review of Systems Denies chest pain Denies shortness of breath Denies nausea vomiting diarrhea Denies fever chills Physical Exam Vital Signs: Vital Signs: Last Vital Signs Temp 97.0 F 12/24/22 07:11 Pulse 62 12/24/22 11:57 Resp 18 12/24/22 07:11 BP 122/56 L 12/24/22 11:57 Pulse Ox 98 12/24/22 07:11 O2 Del Method CPAP 12/24/22 07:11 BMI result Body Mass Index 47.2 Const: Other: Awake alert oriented x3 no acute distress Resp: Other: Clear to auscultation bilaterally no rales rhonchi or wheezes Cardio: Other: No S4; positive S1-S2; no S3 murmurs rubs or gallops GI: Other: Soft nontender nondistended normoactive bowel sounds Extrem: Other: No edema bilaterally Objective Data Active Medications Acetaminophen (Acetaminophen 325 Mg Tablet) 650 mg PO Q6H PRN PRN Reason: Pain, Mild (Pain Scale 1-3) Last Admin: 12/24/22 09:03 Dose: 650 mg Documented By: SARAH Acetaminophen (Acetaminophen Supp 650 Mg Supp.Rect) 650 mg IA Q6H PRN PRN Reason: Pain, Mild (Pain Scale 1-3) Atorvastatin Calcium (Atorvastatin Calcium 10 Mg Tablet) 10 mg PO BEDTIME [facility] Last Admin: 12/23/22 21:37 Dose: 10 mg Documented By: MARIO Bupropion HCl (Bupropion Hcl 100 Mg Tablet) 100 mg PO BEDTIME [facility] Last Admin: 12/23/22 21:37 Dose: 100 mg Documented By: MARIO Bupropion HCl (Bupropion Hcl 100 Mg Tablet) 200 mg PO DAILY [facility] Last Admin: 12/24/22 09:06 Dose: 200 mg Documented By: SARAH Carvedilol (Carvedilol 6.25 Mg Tablet) 6.25 mg PO BID [facility]; Protocol Last Admin: 12/24/22 12:00 Dose: 6.25 mg Documented By: SARAH Duloxetine HCl (Duloxetine Hcl 20 Mg Capsule.Dr) 40 mg PO DAILY [facility] Last Admin: 12/24/22 09:05 Dose: 40 mg Documented By: SARAH Gabapentin (Gabapentin 100 Mg Capsule) 100 mg PO BEDTIME [facility] Last Admin: 12/23/22 21:37 Dose: 100 mg Documented By: MARIO Gabapentin (Gabapentin 300 Mg Capsule) 300 mg PO BEDTIME [facility] Last Admin: 12/23/22 21:37 Dose: 300 mg Documented By: MARIO Hydroxyzine HCl (Hydroxyzine Hcl 25 Mg Tablet) 25 mg PO BEDTIME [facility] Last Admin: 12/23/22 23:58 Dose: 25 mg Documented By: MARIO Loratadine (Loratadine 10 Mg Tablet) 10 mg PO DAILY [facility] Last Admin: 12/24/22 09:06 Dose: 10 mg Documented By: SARAH Melatonin (Melatonin 3 Mg Tablet) 6 mg PO BEDTIME PRN PRN Reason: Insomnia Ondansetron HCl (Ondansetron Hcl 4 Mg/2 Ml Vial) 4 mg IVPUSH Q8H PRN PRN Reason: Nausea and Vomiting Last Admin: 12/23/22 13:21 Dose: 4 mg Documented By: ASIM Oxycodone HCl (Oxycodone Hcl Immed Release 5 Mg Tablet) 5 mg PO Q4H PRN PRN Reason: Pain, Moderate(Pain Scale 4-6) Last Admin: 12/23/22 21:41 Dose: 5 mg Documented By: MARIO Pharmacy Consult (Consult Rx Perform Med Rec) 1 each MISCELLANE ONCE PRN PRN Reason: Consult order Primidone (Primidone 50 Mg Tablet) 50 mg PO BID [facility] Last Admin: 12/24/22 09:03 Dose: 50 mg Documented By: SARAH Sodium Chloride (0.9 % Sodium Chloride Flush 3 Ml Syringe) 3 ml IVFLUSH [facility] Last Admin: 12/24/22 09:03 Dose: 3 ml Documented By: SARAH Tizanidine HCl (Tizanidine Hcl 4 Mg Tablet) 4 mg PO BEDTIME [facility] Last Admin: 12/23/22 23:58 Dose: 4 mg Documented By: MARIO Valsartan (Valsartan 40 Mg Tablet) 20 mg PO BEDTIME [facility]; Protocol Last Admin: 12/23/22 21:37 Dose: 20 mg Documented By: MARIO Warfarin Sodium (Warfarin Sodium 4 Mg Tablet) 4 mg PO TUTHSA@1800 [facility] Warfarin Sodium (Warfarin Sodium 6 Mg Tablet) 6 mg PO SUMOWEFR@1800 [facility] Labs 12/24/22 05:31 12/24/22 05:31 Labs: Laboratory Results - last 24 hr 12/23/22 12/24/22 12/24/22 12:49 05:31 05:31 MCV 96.1 MCH 32.0 MCHC 33.2 RDW 12.5 Plt Count 191 MPV 10.9 Immature Gran % (Auto) 0.3 Neut % (Auto) 63.8 Lymph % (Auto) 28.2 [place] % (Auto) 5.6 Eos % (Auto) 1.5 Baso % (Auto) 0.6 Lymph # (Auto) 2.2 [place] # (Auto) 0.4 Eos # (Auto) 0.1 Baso # (Auto) 0.1 Abs Immat Gran (auto) 0.02 Absolute Neuts (auto) 5.0 Absolute Nucleated RBC 0.000 Nucleated RBC % (auto) 0.0 PT 40.3 H INR 3.3 H Anion Gap 10 L Estim Creat Clear Calc 135.0 Estimated GFR > 60 Fasting Glucose 152 H Calcium 8.1 L Total Bilirubin 0.6 AST 54 H ALT 41 H Alkaline Phosphatase 50 Total Creatine Kinase 643 H Total Protein 5.4 L Albumin 3.3 L 12/24/22 05:31 MCV MCH MCHC RDW Plt Count MPV Immature Gran % (Auto) Neut % (Auto) Lymph % (Auto) [place] % (Auto) Eos % (Auto) Baso % (Auto) Lymph # (Auto) [place] # (Auto) Eos # (Auto) Baso # (Auto) Abs Immat Gran (auto) Absolute Neuts (auto) Absolute Nucleated RBC Nucleated RBC % (auto) PT 29.6 H INR 2.5 H Anion Gap Estim Creat Clear Calc Estimated GFR Fasting Glucose Calcium Total Bilirubin AST ALT Alkaline Phosphatase Total Creatine Kinase Total Protein Albumin Microbiology Microbiology Results: Microbiology 12/22/22 16:48 Blood Culture - Preliminary Blood - Venous No growth after 24 hours. 12/22/22 16:39 Blood Culture - Preliminary Blood - Venous No growth after 24 hours. Assessment and Plan (1) Syncope: Status: Acute (2) Rhabdomyolysis: Status: Acute (3) Persistent atrial fibrillation: Status: Acute Plan This is a 72-year-old male with pertinent history of persistent atrial fibrillation on Coumadin, congestive heart failure with reduced ejection fraction, NOEMI on CPAP, mood disorder, essential hypertension who presents to the emergency department for evaluation of syncope. 1.Orthostatic syncope -euvolemic. .. Will hold Lasix as per Cardiology recommendation. DC IV fluids -decrease Coreg to 6.25 mg b.i.d. and follow-up -follow-up dates level and dose as appropriate 2.Acute traumatic rhabdomyolysis -resolved 3..Persistent atrial fibrillation -rate control -add back digit as per Cardiology 4.Congestive heart failure with preserved ejection fraction -not active is this time -med changes as per Cardiology 5.DMII -acceptable control on current therapies -lispro correctional scale Coumadin Full code Requires ongoing hospitalization for titrating meds to prevent orthostatics syncope Time Spent With Patient Time: Total time managing care of this patient today ____ minutes. Quality Stroke Does the patient have a stroke diagnosis?: No VTE Prior VTE?: No VTE Risk Level:: Medical - moderate - high VTE Device Contraindication: Treatment Not Indicated VTE Drug Contraindication: N/A - Med Ordered
--- NOTE | 2022-12-24 12:45 | PC.NURSE ---
MD Villafuerte aware pt refusing bed alarm, pt fall risk d/t admitting diagnosis syncope . Pt is steady does not require assistance or supervision with ambulation and is denying any dizziness at this time, pt educated on the reason for bed alarm and fall risk interventions.
--- NOTE | 2022-12-24 12:49 | P.DS_ITS ---
DS: Providers Provider Date of Service: 12/25/22 Date of admission: 12/23/22 10:15 Date of discharge: 12/25/22 Primary care physician: Jaylon Carvajal MD Consults: 12/22/22 21:38 Consult to Cardiology Routine Consulting Provider: [facility] [place] Cardiovascular Services Reason for consultation: orthostatic syncope Has provider been notified: Yes DS: Diagnosis Discharge Diagnosis (1) Syncope: Status: Acute (2) Rhabdomyolysis: Status: Acute (3) Persistent atrial fibrillation: Status: Acute DS: Summary Hospital Course Hospital Course: 72-year-old male with pertinent history of persistent atrial fibrillation on Coumadin, congestive heart failure with reduced ejection fraction, NOEMI on CPAP, mood disorder, essential hypertension who presents to the emergency department for evaluation of syncope.? Patient states that when he tried to get up from his bed yesterday, he had dizziness / lightheadedness and the next thing he knew he passed out on the floor.? Patient was on the floor for about an hour.? Patient states he took his blood pressure and it was in the 80s systolic.? Patient states he again had episodes of dizziness today.? His blood pressure continued to be low today and he called his information systems coordinator who advised him to come to the ER.? Patient denies vomiting, diarrhea.? No fever, chills, orthopnea, PND, dyspnea, abdominal pain, changes in urinary or bowel habits.In the emergency department, patient's CK was found to be elevated. Hospital Course Patient admitted to telemetry. Monitor consistently AFib with good rate control. Seen in consultation by Cardiology who recommended decreasing Coreg dose to 6.25 b.i.d. and holding Lasix. Given interaction between digit Coreg, it was advised that did to be 3 times a week Wednesday. Patient continued to do well with these med changes without any further issues. At this point time he is medically acceptable to be discharged home and follow-up with his PCP and information systems coordinator Time Spent with Patient Time attestation: Total time managing care of this patient today ____ minutes. Discharge coordination time: Greater than 30 minutes Quality: Safe Use of Opioids Does Pt have an Active Cancer Diagnosis on the Problem List?: No Quality: Stroke Does the patient have a stroke diagnosis?: No Physical Exam Vital Signs: Vital Signs: Last Vital Signs Temp 97.0 F 12/24/22 07:11 Pulse 62 12/24/22 11:57 Resp 18 12/24/22 07:11 BP 122/56 L 12/24/22 11:57 Pulse Ox 98 12/24/22 07:11 O2 Del Method CPAP 12/24/22 07:11 BMI result Body Mass Index 47.2 Const: Other: Awake alert oriented x3 no acute distress Resp: Other: Clear to auscultation bilaterally no rales rhonchi or wheezes Cardio: Other: No S4; positive S1-S2; no S3 murmurs rubs or gallops GI: Other: Soft nontender nondistended normoactive bowel sounds Extrem: Other: No edema bilaterally DS: Data Data Completed and Pending Labs on day of discharge: Laboratory Results - last 24 hr 12/23/22 12/24/22 12/24/22 12:49 05:31 05:31 WBC 7.8 RBC 3.88 L Hgb 12.4 L Hct 37.3 L MCV 96.1 MCH 32.0 MCHC 33.2 RDW 12.5 Plt Count 191 MPV 10.9 Immature Gran % (Auto) 0.3 Neut % (Auto) 63.8 Lymph % (Auto) 28.2 [place] % (Auto) 5.6 Eos % (Auto) 1.5 Baso % (Auto) 0.6 Lymph # (Auto) 2.2 [place] # (Auto) 0.4 Eos # (Auto) 0.1 Baso # (Auto) 0.1 Abs Immat Gran (auto) 0.02 Absolute Neuts (auto) 5.0 Absolute Nucleated RBC 0.000 Nucleated RBC % (auto) 0.0 PT 40.3 H INR 3.3 H Sodium 140 Potassium 4.4 Chloride 107 Carbon Dioxide 27 Anion Gap 10 L BUN 12 Creatinine 0.79 Estim Creat Clear Calc 135.0 Estimated GFR > 60 Fasting Glucose 152 H Calcium 8.1 L Total Bilirubin 0.6 AST 54 H ALT 41 H Alkaline Phosphatase 50 Total Creatine Kinase 643 H Total Protein 5.4 L Albumin 3.3 L 12/24/22 05:31 WBC RBC Hgb Hct MCV MCH MCHC RDW Plt Count MPV Immature Gran % (Auto) Neut % (Auto) Lymph % (Auto) [place] % (Auto) Eos % (Auto) Baso % (Auto) Lymph # (Auto) [place] # (Auto) Eos # (Auto) Baso # (Auto) Abs Immat Gran (auto) Absolute Neuts (auto) Absolute Nucleated RBC Nucleated RBC % (auto) PT 29.6 H INR 2.5 H Sodium Potassium Chloride Carbon Dioxide Anion Gap BUN Creatinine Estim Creat Clear Calc Estimated GFR Fasting Glucose Calcium Total Bilirubin AST ALT Alkaline Phosphatase Total Creatine Kinase Total Protein Albumin Preliminary micro results at discharge 12/22/22 16:48 Blood Culture - Preliminary Blood - Venous No growth after 24 hours. 12/22/22 16:39 Blood Culture - Preliminary Blood - Venous No growth after 24 hours. Discharge Plan Discharge Anticipated Discharge Date/Time: 12/25/22 10:28 Patient Disposition: Home Health Service Discharge Diagnosis: Syncope Referrals: Jaylon Carvajal MD [Primary Care Provider] - 1 Week Discharge Medications: New carvedilol 6.25 mg Tablet 6.25 mg PO BID Qty: 60 0RF Protocol: Hold for SBP/HR < HOLD for SBP < : 90 HOLD for HR < : 60 digoxin 250 mcg (0.25 mg) Tablet 0.25 mg PO MoWeFr Qty: 12 0RF Continued omega-3 fatty acids 500 mg capsule 500 mg PO DAILY acetaminophen 650 mg tablet extended release 1,300 mg PO DAILY Rx Instructions: TAKES IN AM atorvastatin 10 mg tablet 10 mg PO BEDTIME Qty: 90 3RF digoxin 250 mcg (0.25 mg) tablet 250 mcg PO DAILY 90 Days Qty: 90 2RF multivitamin Tablet 1 tab PO DAILY warfarin 4 mg tablet 6 mg PO SUMOWEFR@1800 warfarin 4 mg tablet 4 mg PO TUTHSA@1800 bupropion HCl 100 mg tablet 100 mg PO BEDTIME gabapentin 300 mg capsule 300 mg PO BEDTIME hydroxyzine HCl 25 mg tablet 25 mg PO BEDTIME tizanidine 4 mg tablet 4 mg PO BEDTIME warfarin 4 mg tablet 4 mg PO TUTHSA@1800 Protocol: Dose Management Condition: Wednesday (Week One) Dose/Route: 6 mg Instruction: 1.5 x 4 mg tablets Condition: Wednesday Dose/Route: 4 mg Instruction: 1 x 4 mg tablet Condition: Wednesday Dose/Route: 6 mg Instruction: 1.5 x 4 mg tablets Condition: Wednesday Dose/Route: 4 mg Instruction: 1 x 4 mg tablet Condition: Dose/Route: 6 mg Instruction: 1.5 x 4 mg tablets Condition: Wednesday Dose/Route: 4 mg Instruction: 1 x 4 mg tablet Condition: Wednesday Dose/Route: 6 mg Instruction: 1.5 x 4 mg tablets Condition: Wednesday (Week Two) Dose/Route: 6 mg Instruction: 1.5 x 4 mg tablets Condition: Wednesday Dose/Route: 4 mg Instruction: 1 x 4 mg tablet Condition: Wednesday Dose/Route: 6 mg Instruction: 1.5 x 4 mg tablets Condition: Wednesday Dose/Route: 4 mg Instruction: 1 x 4 mg tablet Condition: Dose/Route: 6 mg Instruction: 1.5 x 4 mg tablets Condition: Wednesday Dose/Route: 4 mg Instruction: 1 x 4 mg tablet Condition: Wednesday Dose/Route: 6 mg Instruction: 1.5 x 4 mg tablets Protocol Text: Adjustment Start Date: Wednesday12/11/22 INR Value: 2.2 INR Date: 12/11/22 Recheck Date: 01/01/23 Additional Instructions: INR is in range continue same dosing balance greens and reds in diet, be consistent GOOD WORK!!! valsartan 40 mg tablet 20 mg PO BEDTIME cholecalciferol (vitamin D3) [Vitamin D3] 25 mcg (1,000 unit) Tablet 25 mcg PO DAILY epinephrine 0.3 mg/0.3 mL auto-injector 0.3 mg IM Q10M PRN (Reason: Anaphylaxis) Rx Instructions: for 2 doses primidone 50 mg tablet 50 mg PO BID cetirizine 10 mg tablet 10 mg PO DAILY gabapentin 100 mg capsule 100 mg PO BEDTIME duloxetine 20 mg capsule,delayed release(DR/EC) 40 mg PO DAILY bupropion HCl 100 mg tablet 200 mg PO DAILY Discontinued carvedilol [Coreg] 12.5 mg tablet 12.5 mg PO BID Qty: 180 1RF Rx Instructions: must administer with a meal/food furosemide 20 mg tablet 20 mg PO MOWEFR@0900 Discharge Orders: Discharge Order (Routine); Ordered 12/25/22 Ordered By: Danielito Villafuerte Diet: Advance to usual diet Activity on Discharge: As tolerated Stand Alone Forms: Patient Portal Discharge page Care Plan Goals: Your Lasix has been held. Follow-up with Cardiology they will restart at their discretion Health Concerns: Your Coreg has been decreased to 6.25 mg twice daily; digoxin is now only Wednesday Plan of Treatment: Follow-up Cardiology and PCP as scheduled Assessment: See discharge summary
--- NOTE | 2022-12-24 15:12 | MHC.CM.PN ---
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
[2022-12-24 15:29] VITALS: BP 148/71; PULSE 87; RESP 18; TEMP 36.8; O2SAT 96
[2022-12-24] MEDS: oxyCODONE HCl Immed Release 5 MG TABLET PO (15:53)
[2022-12-24] MEDS: Warfarin Sodium 4 MG TABLET PO (17:54)
[2022-12-24] MEDS: Gabapentin 300 MG CAPSULE PO (21:09)
[2022-12-24] MEDS: Gabapentin 100 MG CAPSULE PO (21:09)
[2022-12-24] MEDS: buPROPion HCL 100 MG TABLET PO (21:09)
[2022-12-24] MEDS: Valsartan 40 MG TABLET 20 MG PO (21:09)
[2022-12-24] MEDS: Atorvastatin Calcium 10 MG TABLET PO (21:10)
[2022-12-24] MEDS: TiZANidine HCL 4 MG TABLET PO (21:10)
[2022-12-24] MEDS: hydrOXYzine HCL 25 MG TABLET PO (21:10)
[2022-12-25] VITALS: BP 111/58; PULSE 58; RESP 16; TEMP 36.2; O2SAT 96
[2022-12-25 06:09] LABS: MANUAL DIFF FLAG NO
[2022-12-25 06:21] LABS: Basophils Absolute Auto 0.1 X10*3/uL (0.0-0.2); Basophils Percent Auto 0.9 % (0-2); Eosinophils Absolute Auto 0.2 X10*3/uL (0.0-0.4); Eosinophils Percent Auto 2.8 % (0-4); Hematocrit 38.9 % (42.0-52.0); Imm Gran Abs Auto 0.02 X10*3/uL (0.00-0.03); Imm Gran Pct Auto 0.3 % (0.0-0.4); Lymphocytes Absolute Auto 1.7 X10*3/uL (1.2-4.9); Mean Corpuscular HGB Conc 33.4 g/dl (31.0-36.0); Mean Corpuscular Hemoglobin 32.1 pg (27.0-33.0); Mean Platelet Volume 11.2 fL (9.4-12.4); Monocytes Absolute Auto 0.4 X10*3/uL (0.1-1.2); Monocytes Percent Auto 5.2 % (2-11); Neutrophils Absolute Auto 4.3 x10*3/uL (2.0-8.3); Neutrophils Percent Auto 64.8 % (45-73); Platelet Count 173 X10*3/uL (160-400); Red Blood Count 4.05 X10*6/uL (4.60-5.80); Red Cell Distribution Width 12.4 % (11.0-16.0); White Blood Count 6.7 X10*3/uL (4.8-10.8)
[2022-12-25 06:22] LABS: INTERNATIONAL NORM RATIO 1.9 (0.9-1.1); Prothrombin Time 22.4 SEC (10.0-13.1)
[2022-12-25 06:27] LABS: Alanine Aminotransferase 37 U/L (0-40); Albumin Level 3.4 g/dL (3.5-5.0); Alkaline Phosphatase 55 U/L (39-117); Anion Gap 10 (12-20); Aspartate Amino Transferase 35 U/L (5-37); Bilirubin Total 0.6 mg/dL (0.0-1.0); Blood Urea Nitrogen 11 mg/dL (9-16); Calcium 8.5 mg/dL (8.4-10.2); Carbon Dioxide 29 mmol/L (22-29); Chloride 105 mmol/L (96-108); Creatinine Clr Calc Pharmacy 142.2; Estimated Glomerular Filt Rate > 60; Glucose Fasting 156 mg/dL (60-99); Potassium 4.1 mmol/L (3.3-5.1); Sodium 140 mmol/L (135-145); Total Protein 5.5 g/dL (6.5-8.0)
[2022-12-25 07:49] VITALS: BP 122/65; PULSE 64; RESP 22; TEMP 36.5; O2SAT 96
[2022-12-25] MEDS: Loratadine 10 MG TABLET PO (07:53)
[2022-12-25] MEDS: buPROPion HCL 100 MG TABLET 200 MG PO (07:53)
[2022-12-25] MEDS: carvediloL 6.25 MG TABLET PO (07:53)
[2022-12-25] MEDS: Primidone 50 MG TABLET PO (07:54)
[2022-12-25] MEDS: DULoxetine HCl 20 MG CAPSULE.DR 40 MG PO (07:56)
[2022-12-25] MEDS: Digoxin 0.25 MG TABLET PO (08:01)
[2022-12-25] MEDS: oxyCODONE HCl Immed Release 5 MG TABLET PO (08:01)
--- NOTE | 2022-12-25 11:12 | MHC.CM.PN ---
IMM 12/24 Patient is discharged to home today. 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 Patient has arranged for transportation home.
== END 2022-12-25 11:58 | disposition home health service (06) | DRG 312 ==
LOC: HO.ED 21:34 → HO.EDOVER 21:45 → HO.S3 12-23 17:08
PROVIDERS: Physician Assistant; Admitting Provider Student in an Organized Health Care Education/Training Program; Emergency Provider Student in an Organized Health Care Education/Training Program; PCP Internal Medicine; Visit Provider Hospitalist
DX: I95.1 Orthostatic hypotension (principal); I48.19 Other persistent atrial fibrillation; I50.22 Chronic systolic (congestive) heart failure; Z68.42 Body mass index [BMI] 45.0-49.9, adult; T79.6XXA Traumatic ischemia of muscle, initial encounter; I11.0 Hypertensive heart disease with heart failure; G47.33 Obstructive sleep apnea (adult) (pediatric); E66.01 Morbid (severe) obesity due to excess calories; F39 Unspecified mood [affective] disorder; I25.10 Atherosclerotic heart disease of native coronary artery without angina pectoris; J44.9 Chronic obstructive pulmonary disease, unspecified; E11.9 Type 2 diabetes mellitus without complications; Z20.822 Contact with and (suspected) exposure to COVID-19; Z79.01 Long term (current) use of anticoagulants; Z79.899 Other long term (current) drug therapy; Z87.891 Personal history of nicotine dependence
CPT/HCPCS: 36415; 70450; 71260; 72125; 73564; 74177; 80048; 80053; 81003; 82550; 82947; 83605; 83735; 83880; 84484; 85025; 85610; 86140; 87040; 87635; 93005; 99221; 99285; J0696; J1200; J2270; J2405; J2930; Q9967

== ENCOUNTER → 2022-12-29 13:08 | Outpatient (BNVA) | payer OTHER, SELFPAY | PROVIDERS: PCP Internal Medicine; Visit Provider Hospitalist | DX: G47.33 Obstructive sleep apnea (adult) (pediatric) (principal); R06.00 Dyspnea, unspecified; E66.01 Morbid (severe) obesity due to excess calories; I27.82 Chronic pulmonary embolism; M54.9 Dorsalgia, unspecified; Z99.89 Dependence on other enabling machines and devices; Z68.42 Body mass index [BMI] 45.0-49.9, adult | CPT/HCPCS: 99212 ==

== ENCOUNTER → 2023-01-01 10:15 | Outpatient (BNVA) | payer OTHER, SELFPAY | PROVIDERS: PCP Internal Medicine; Visit Provider Internal Medicine | DX: I26.99 Other pulmonary embolism without acute cor pulmonale (principal); Z79.01 Long term (current) use of anticoagulants; Z51.81 Encounter for therapeutic drug level monitoring | CPT/HCPCS: 85610; 99212 ==

== ENCOUNTER → 2023-01-22 10:17 | Outpatient (BNVA) | payer OTHER, SELFPAY | PROVIDERS: PCP Internal Medicine; Visit Provider Internal Medicine | DX: I26.99 Other pulmonary embolism without acute cor pulmonale (principal); Z79.01 Long term (current) use of anticoagulants; Z51.81 Encounter for therapeutic drug level monitoring | CPT/HCPCS: 85610; 99211 ==

== ENCOUNTER 2023-02-05 10:26 | Outpatient (AMB) | payer OTHER, SELFPAY ==
[2023-02-05 10:48] LABS: Prothrombin Time Whole Bld POC 25.1 sec (11.1-13.5); ~PT, ~INR - Anti Coag Clinic 2.1 (0.9-1.1)
--- NOTE | 2023-02-05 10:58 | MHC.OFFVISCO ---
Intake Intake Visit Reasons: Anticoagulation Allergies iodine [IODINE] Allergy (Intermediate, Verified 02/05/23 10:42) HIVES, bloating latex [LATEX] Allergy (Intermediate, Verified 02/05/23 10:42) HIVES shellfish derived [SHELLFISH DERIVED] Allergy (Intermediate, Verified 02/05/23 10:42) ANAPHYLAXIS Medication List - Last Reconciled 02/05/23 by Quynh Cervantes RN acetaminophen ER 1,300 mg PO DAILY atorvastatin 10 mg PO BEDTIME bupropion HCl 100 mg PO BEDTIME bupropion HCl 200 mg PO DAILY carvedilol 6.25 mg See Protocol PO BID cetirizine 10 mg PO DAILY cholecalciferol (vitamin D3) (Vitamin D3) 25 mcg PO DAILY digoxin 0.25 mg PO MoWeFr duloxetine 40 mg PO DAILY epinephrine 0.3 mg IM Q10M PRN gabapentin 300 mg PO BEDTIME gabapentin 100 mg PO BEDTIME hydroxyzine HCl 25 mg PO BEDTIME lidocaine 5% (Lidoderm) 1 patch topical DAILY 30 days multivitamin 1 tab PO DAILY omega-3 fatty acids 500 mg PO DAILY primidone 50 mg PO BID tizanidine 4 mg PO BEDTIME valsartan 20 mg PO BEDTIME warfarin 4 mg See Protocol PO TUTHSA@1800 warfarin 6 mg See Protocol PO SUMOWEFR@1800 Nursing Note NO CP,SOB,DIET/MED CHANGES,FALLS OR SX OF BLEEDING. CONTINUE PRESENT DOSE AND FOLLOW-UP IN 3 WEEKS.. GOOD UNDERSTANDING OF DOSING INSTR. Anti-Coag Initial Assessment Social Hx Patient Tobacco Use Status: Former Tobacco user alcohol intake: never Coding Level of Care Code Est Patient Level 1 Diagnoses Current use of anticoagulant therapy Z79.01 Assessment & Plan Assessment & Plan (1) Current use of anticoagulant therapy: Code(s): Z79.01 - terminal gauger (current) use of anticoagulants Category: Medical Medications: Discontinued warfarin 4 mg See Protocol PO DAILY 90 tabs 3RF tizanidine 4 mg PO BEDTIME 90 days PRN 90 tabs 1RF Spasms valsartan 20 mg (1/2 x 40 mg) PO QPM 90 days 45 tabs 3RF
== END 2023-02-05 11:00 | disposition home or self-care (01) ==
LOC: HO.ACS 10:26
PROVIDERS: PCP Internal Medicine; Visit Provider Internal Medicine
DX: Z79.01 Long term (current) use of anticoagulants (principal)

== ENCOUNTER → 2023-02-05 10:26 | Outpatient (BNVA) | payer OTHER, SELFPAY | PROVIDERS: PCP Internal Medicine; Visit Provider Internal Medicine | DX: I26.99 Other pulmonary embolism without acute cor pulmonale (principal); Z79.01 Long term (current) use of anticoagulants; Z51.81 Encounter for therapeutic drug level monitoring | CPT/HCPCS: 85610; 99211 ==

== ENCOUNTER 2023-02-23 13:39 | Outpatient (AMB) | payer OTHER, SELFPAY ==
[2023-02-23 13:44] VITALS: BP 100/64; PULSE 78; BMI 46.0
--- NOTE | 2023-02-23 13:44 | A.OFFVIS_ITS ---
Intake Vital Signs 02/23/23 13:44 Height 6 ft Weight 339 lb 8.19 oz BMI 46.0 BP 100/64 Blood Pressure Location Lt brachial Position Sitting Pulse 78 Intake Visit Reasons: 6 month F/u s/b echo Intake Note: 6 month follow-up after echo Nuclear Medicine Supervisor Required: No Chicken Sexer: Chicken Sexer Present Accompanied by: nurse Allergies iodine [IODINE] Allergy (Intermediate, Verified 02/05/23 10:42) HIVES, bloating latex [LATEX] Allergy (Intermediate, Verified 02/05/23 10:42) HIVES shellfish derived [SHELLFISH DERIVED] Allergy (Intermediate, Verified 02/05/23 10:42) ANAPHYLAXIS Medication List - Last Reconciled 02/23/23 by Khris Lewis MD acetaminophen ER 1,300 mg PO DAILY atorvastatin 10 mg PO BEDTIME bupropion HCl 100 mg PO BEDTIME bupropion HCl 200 mg PO DAILY carvedilol 6.25 mg See Protocol PO BID cetirizine 10 mg PO DAILY cholecalciferol (vitamin D3) (Vitamin D3) 25 mcg PO DAILY digoxin 0.25 mg PO MoWeFr duloxetine 40 mg PO DAILY epinephrine 0.3 mg IM Q10M PRN gabapentin 300 mg PO BEDTIME gabapentin 100 mg PO BEDTIME hydroxyzine HCl 25 mg PO BEDTIME lidocaine 5% (Lidoderm) 1 patch topical DAILY 30 days multivitamin 1 tab PO DAILY omega-3 fatty acids 500 mg PO DAILY primidone 50 mg PO BID tizanidine 4 mg PO BEDTIME valsartan 20 mg PO BEDTIME warfarin 4 mg See Protocol PO TUTHSA@1800 warfarin 6 mg See Protocol PO SUMOWEFR@1800 HPI HPI Comments History of Present Illness Details Kris comes for follow-up after recent hospitalization in December with what appears to be syncopal episode. However he denies any loss of consciousness at that time. He said he tried to get up and then fell over. May have been lighth eaded but he is not sure. During hospitalization was noted to have elevated CK. He was then noted to have low blood pressures carvedilol was reduced as well as digoxin reduced to every other day. Since then he has been doing well. He has no heart failure symptoms. His Lasix was discontinued as well. He denies any orthopnea PND, leg edema. Limited activity level. He continues to hurt. [place] es any bleeding issues or neurologic events [facility] Medical History (Updated 02/23/23 @ 14:13 by Khris Lewis MD) Back pain CAD (coronary artery disease) Cardiomyopathy COPD (chronic obstructive pulmonary disease) Current use of anticoagulant therapy Diabetes Dyspnea Heart failure with reduced ejection fraction HLD (hyperlipidemia) HTN (hypertension) Morbid obesity Obstructive sleep apnea NOEMI on CPAP Persistent atrial fibrillation Surgical History History of ankle surgery History of knee surgery Family History Father HTN (hypertension) Diabetes mellitus Cardiac disease Bone cancer Substance use disorder Mother HTN (hypertension) Lung cancer Social History Household Members: None Housing: Apartment Do you presently have visiting nurse or other home services: No (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) Alcohol intake: never Patient Tobacco Use Status: Former Tobacco user Years Smoked: 30 yrs e-Cigarette/Vaping Use: Never Used Second Hand Smoke Exposure: No service: No Current occupational status: retired and disabled Cognitive needs: No Hearing needs: No Vision needs: Yes Review of Systems Const Denies chills, Denies fatigue, Denies fever(s), Denies frequent falls, Denies weakness, Denies weight gain and Denies weight loss ENT Denies dizziness Card Denies chest pain, Denies leg edema, Denies lightheadedness, Denies palpitations, Denies dyspnea, Denies dyspnea on exertion, Denies orthopnea and Denies other (loss of consciousness) Resp Denies cough, Denies dyspnea and Denies dyspnea on exertion GI Denies hematochezia and Denies change in stool character Musc Denies abnormal gait, Denies muscle weakness, Denies numbness, Denies radiating pain into limb and Denies tingling Neuro Denies abnormal gait, Denies dizziness, Denies frequent falls, Denies numbness, Denies tingling and Denies weakness Endo Denies fatigue and Denies palpitations Physical Exam Vital Signs: Last Vital Signs Pulse 78 02/23/23 13:44 BP 100/64 02/23/23 13:44 BMI result Body Mass Index 46.0 Const General: cooperative, comfortable, no acute distress, alert and awake Nutritional Appearance: obese morbidly obese Orientation/consciousness: patient oriented x3 Limitations: no limitations Neck Neck: Yes trachea midline, Yes supple and Yes no JVD Resp Effort & Inspection: normal respiratory effort Auscultation: no rales, no wheezes and diminished lung sounds Cardio Jugular venous distension: no JVD Rate: bradycardic Rhythm: abnormal rhythm irregularly irregular Heart sounds: S1 normal heart sound present and S2 normal heart sound present GI Auscultation: normal bowel sounds Skin General skin exam: no rashes or lesions noted Neuro General: patient oriented x3 and no focal motor deficits Extrem General: No clubbing, No cyanosis and Yes edema ( +two edema) Psych Appearance: grossly normal Assessment & Plan Assessment & Plan (1) Cardiomyopathy: Code(s): I42.9 - Cardiomyopathy, unspecified Plan: Cardiomyopathy process with moderate LV systolic dysfunction. He has no signs or symptoms of congestive heart failure despite being on Lasix therapy for more than 2 months. He is drinking adequate amount of fluid. Signs and symptoms of heart failure were discussed. Avoidance of salt loading was discussed. Daily weight monitoring is advised. He has had reducing tolerance to neurohormonal modulation with low blood pressures advised to monitor blood pressure more regularly at home. Continue current neurohormonal modulation with valsartan and carvedilol at current doses. If he remains persistently with low blood pressure may need to further down titrate carvedilol therapy. Continue CPAP therapy. Importance of continued weight loss program was discussed. Continue CPAP therapy. (2) Chronic atrial fibrillation: Code(s): I48.20 - Chronic atrial fibrillation, unspecified Plan: Chronic atrial fibrillation has failed rate control approach. Has significant left atrial enlargement, unlikely to have successful rhythm control approach with this was discussed with him. Continue rate control with digoxin and carvedilol therapy. Semi annual digoxin assay should be pursued. Continue warfarin therapy with target INR between 2 and 3 being followed by [facility]. Will follow up in the clinic in 6 months time, sooner p.r.n.. Thank you for allowing me to partake in his care Medications: Changed From carvedilol 6.25 mg See Protocol PO BID 60 tabs 0RF To carvedilol 6.25 mg See Protocol PO BID Discontinued warfarin 4 mg See Protocol PO DAILY 90 tabs 3RF tizanidine 4 mg PO BEDTIME 90 days PRN 90 tabs 1RF Spasms valsartan 20 mg (1/2 x 40 mg) PO QPM 90 days 45 tabs 3RF Coding Level of Care Code Est Pt Level 4 (23984) Diagnoses Cardiomyopathy I42.9 Chronic atrial fibrillation I48.20
== END 2023-02-23 14:11 | disposition home or self-care (01) ==
PROVIDERS: PCP Internal Medicine; Referring Provider Internal Medicine; Visit Provider Internal Medicine Cardiovascular Disease
DX: I42.9 Cardiomyopathy, unspecified (principal); I48.20 Chronic atrial fibrillation, unspecified
CPT/HCPCS: 99214

== ENCOUNTER → 2023-02-23 13:39 | Outpatient (BNVA) | payer OTHER, SELFPAY | PROVIDERS: PCP Internal Medicine; Referring Provider Internal Medicine; Visit Provider Internal Medicine Cardiovascular Disease | DX: I42.9 Cardiomyopathy, unspecified (principal); I48.20 Chronic atrial fibrillation, unspecified | CPT/HCPCS: 99212 ==

== ENCOUNTER 2023-03-05 10:16 | Outpatient (AMB) | payer OTHER, SELFPAY ==
[2023-03-05 10:26] LABS: Prothrombin Time Whole Bld POC 38.8 sec (11.1-13.5); ~PT, ~INR - Anti Coag Clinic 3.2 (0.9-1.1)
--- NOTE | 2023-03-05 10:35 | MHC.OFFVISCO ---
Intake Intake Visit Reasons: Anticoagulation Allergies iodine [IODINE] Allergy (Intermediate, Verified 03/05/23 10:18) HIVES, bloating latex [LATEX] Allergy (Intermediate, Verified 03/05/23 10:18) HIVES shellfish derived [SHELLFISH DERIVED] Allergy (Intermediate, Verified 03/05/23 10:18) ANAPHYLAXIS Medication List - Last Reconciled 03/05/23 by Brittany Hassan, RN acetaminophen ER 1,300 mg PO DAILY atorvastatin 10 mg PO BEDTIME bupropion HCl 100 mg PO BEDTIME bupropion HCl 200 mg PO DAILY carvedilol 6.25 mg See Protocol PO BID cetirizine 10 mg PO DAILY cholecalciferol (vitamin D3) (Vitamin D3) 25 mcg PO DAILY digoxin 0.25 mg PO MoWeFr duloxetine 40 mg PO DAILY epinephrine 0.3 mg IM Q10M PRN gabapentin 300 mg PO BEDTIME gabapentin 100 mg PO BEDTIME hydroxyzine HCl 25 mg PO BEDTIME lidocaine 5% (Lidoderm) 1 patch topical DAILY 30 days multivitamin 1 tab PO DAILY omega-3 fatty acids 500 mg PO DAILY primidone 50 mg PO BID tizanidine 4 mg PO BEDTIME valsartan 20 mg PO BEDTIME warfarin 4 mg See Protocol PO TUTHSA@1800 warfarin 6 mg See Protocol PO SUMOWEFR@1800 Nursing Note Amb to ACS using cane feeling ok, sts he has pain all over his body 7/10 Medications and supplements reviewed, sts takes tylenol in the am and pm and occ a dose middle of day, discussed with pt can raise INR No other changes in health, diet, medications, or supplements Denies any unusual signs and symptoms of bruising, bleeding, although noted multiple areas on arms possible bug bites, sts never outside and I don't have bed bugs Denies any new Chest pain, SOB, or clotting INR: 3.2 just above therapeutic range Nutritional guidance given: pt is not a green eater in the sense of green veggies, he usually has pasta with pasta sauce which can act as a green, sts he has not had any for weeks because it has been so hot. 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
== END 2023-03-05 13:11 | disposition home or self-care (01) ==
LOC: HO.ACS 10:16
PROVIDERS: PCP Internal Medicine; Visit Provider Internal Medicine
DX: Z79.01 Long term (current) use of anticoagulants (principal)

== ENCOUNTER → 2023-03-05 10:16 | Outpatient (BNVA) | payer OTHER, SELFPAY | PROVIDERS: PCP Internal Medicine; Visit Provider Internal Medicine | DX: I26.99 Other pulmonary embolism without acute cor pulmonale (principal); Z79.01 Long term (current) use of anticoagulants; Z51.81 Encounter for therapeutic drug level monitoring | CPT/HCPCS: 85610; 99211 ==

== ENCOUNTER 2023-03-19 10:18 | Outpatient (AMB) | payer OTHER, SELFPAY ==
[2023-03-19 10:24] LABS: Prothrombin Time Whole Bld POC 38.1 sec (11.1-13.5); ~PT, ~INR - Anti Coag Clinic 3.2 (0.9-1.1)
--- NOTE | 2023-03-19 10:29 | MHC.OFFVISCO ---
Intake Intake Visit Reasons: Anticoagulation Allergies iodine [IODINE] Allergy (Intermediate, Verified 03/19/23 10:19) HIVES, bloating latex [LATEX] Allergy (Intermediate, Verified 03/19/23 10:19) HIVES shellfish derived [SHELLFISH DERIVED] Allergy (Intermediate, Verified 03/19/23 10:19) ANAPHYLAXIS Medication List - Last Reconciled 03/19/23 by Quynh Cervantes RN acetaminophen ER 1,300 mg PO DAILY atorvastatin 10 mg PO BEDTIME bupropion HCl 100 mg PO BEDTIME bupropion HCl 200 mg PO DAILY carvedilol 6.25 mg See Protocol PO BID cetirizine 10 mg PO DAILY cholecalciferol (vitamin D3) (Vitamin D3) 25 mcg PO DAILY digoxin 0.25 mg PO MoWeFr duloxetine 40 mg PO DAILY epinephrine 0.3 mg IM Q10M PRN gabapentin 300 mg PO BEDTIME gabapentin 100 mg PO BEDTIME hydroxyzine HCl 25 mg PO BEDTIME lidocaine 5% (Lidoderm) 1 patch topical DAILY 30 days multivitamin 1 tab PO DAILY omega-3 fatty acids 500 mg PO DAILY primidone 50 mg PO BID tizanidine 4 mg PO BEDTIME valsartan 20 mg PO BEDTIME warfarin 4 mg See Protocol PO TUTHSA@1800 warfarin 6 mg See Protocol PO SUMOWEFR@1800 Nursing Note NO CP,SOB,DIET/MED CHANGES,FALLS OR SX OF BLEEDING. PT.HAS HAD DIARRHEA FOR THE PAST 3 DAYS DECREASE DOSE SLIGHTLY TODAY TO 2MGM THEN RESUME USUAL DOSING AND FOLLOW-UP IN 3 WEEKS. GOOD UNDERSTANDING OF DOSING INSTR. Anti-Coag Initial Assessment Social Hx Patient Tobacco Use Status: Former Tobacco user alcohol intake: never Coding Level of Care Code Est Patient Level 1 Diagnoses Current use of anticoagulant therapy Z79.01 Assessment & Plan Assessment & Plan (1) Current use of anticoagulant therapy: Code(s): Z79.01 - assisted (current) use of anticoagulants Category: Medical Medications: Discontinued warfarin 4 mg See Protocol PO DAILY 90 tabs 3RF tizanidine 4 mg PO BEDTIME 90 days PRN 90 tabs 1RF Spasms valsartan 20 mg (1/2 x 40 mg) PO QPM 90 days 45 tabs 3RF
== END 2023-03-19 10:34 | disposition home or self-care (01) ==
LOC: HO.ACS 10:18
PROVIDERS: PCP Internal Medicine; Visit Provider Internal Medicine
DX: Z79.01 Long term (current) use of anticoagulants (principal)

== ENCOUNTER → 2023-03-19 10:18 | Outpatient (BNVA) | payer OTHER, SELFPAY | PROVIDERS: PCP Internal Medicine; Visit Provider Internal Medicine | DX: I26.99 Other pulmonary embolism without acute cor pulmonale (principal); Z79.01 Long term (current) use of anticoagulants; Z51.81 Encounter for therapeutic drug level monitoring | CPT/HCPCS: 85610; 99211 ==

== ENCOUNTER 2023-04-09 10:15 | Outpatient (AMB) | payer OTHER, SELFPAY ==
--- NOTE | 2023-04-09 10:22 | MHC.OFFVISCO ---
Intake Intake Visit Reasons: Anticoagulation Allergies iodine [IODINE] Allergy (Intermediate, Verified 04/09/23 10:17) HIVES, bloating latex [LATEX] Allergy (Intermediate, Verified 04/09/23 10:17) HIVES shellfish derived [SHELLFISH DERIVED] Allergy (Intermediate, Verified 04/09/23 10:17) ANAPHYLAXIS Medication List - Last Reconciled 04/09/23 by Flores Penaloza RN acetaminophen ER 1,300 mg PO DAILY atorvastatin 10 mg PO BEDTIME bupropion HCl 100 mg PO BEDTIME bupropion HCl 200 mg PO DAILY carvedilol 6.25 mg See Protocol PO BID cetirizine 10 mg PO DAILY cholecalciferol (vitamin D3) (Vitamin D3) 25 mcg PO DAILY digoxin 0.25 mg PO MoWeFr duloxetine 40 mg PO DAILY epinephrine 0.3 mg IM Q10M PRN gabapentin 300 mg PO BEDTIME gabapentin 100 mg PO BEDTIME hydroxyzine HCl 25 mg PO BEDTIME lidocaine 5% (Lidoderm) 1 patch topical DAILY 30 days multivitamin 1 tab PO DAILY omega-3 fatty acids 500 mg PO DAILY primidone 50 mg PO BID tizanidine 4 mg PO BEDTIME valsartan 20 mg PO BEDTIME warfarin 4 mg See Protocol PO TUTHSA@1800 warfarin 6 mg See Protocol PO SUMOWEFR@1800 Nursing Note INR 4.1-? 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 Anti-Coag Initial Assessment Social Hx Patient Tobacco Use Status: Former Tobacco user alcohol intake: never Coding Level of Care Code Est Patient Level 1 Diagnoses Current use of anticoagulant therapy Z79.01 Assessment & Plan Assessment & Plan (1) Current use of anticoagulant therapy: Code(s): Z79.01 - half-way (current) use of anticoagulants Category: Medical
[2023-04-09 10:23] LABS: Prothrombin Time Whole Bld POC 49.2 sec (11.1-13.5); ~PT, ~INR - Anti Coag Clinic 4.1 (0.9-1.1)
== END 2023-04-09 10:40 | disposition home or self-care (01) ==
LOC: HO.ACS 10:15
PROVIDERS: PCP Internal Medicine; Visit Provider Internal Medicine
DX: Z79.01 Long term (current) use of anticoagulants (principal)

== ENCOUNTER → 2023-04-09 10:15 | Outpatient (BNVA) | payer OTHER, SELFPAY | PROVIDERS: PCP Internal Medicine; Visit Provider Internal Medicine | DX: I26.99 Other pulmonary embolism without acute cor pulmonale (principal); Z79.01 Long term (current) use of anticoagulants; Z51.81 Encounter for therapeutic drug level monitoring | CPT/HCPCS: 85610; 99211 ==

== ENCOUNTER 2023-04-16 06:14 | Outpatient (REF) | payer OTHER, SELFPAY ==
[2023-04-16 11:39] LABS: INTERNATIONAL NORM RATIO 2.3 (0.9-1.1); Prothrombin Time 28.6 SEC (11.1-13.3)
== END 2023-04-16 06:15 | disposition home or self-care (01) ==
LOC: HO.LHD 06:14
PROVIDERS: Visit Provider Internal Medicine
DX: Z79.01 Long term (current) use of anticoagulants (principal)
CPT/HCPCS: 36415; 85610

== ENCOUNTER 2023-04-20 13:29 | Outpatient (REF) | payer OTHER, SELFPAY ==
--- NOTE | 2023-04-20 16:21 | PFT_ITS ---
INDICATION: Asthma. SPIROMETRY: FEV1 to FVC 78% with an FEV1 of 2.37 L, which is 67% predicted and FVC of 3.04 L, which is 64% predicted. There was no significant response to bronchodilators noted. Again lung volumes could not be achieved even after optimum maneuvers attempted. DIFFUSION CAPACITY: DLCO of 30% predicted. COMPARISONS: None. INTERPRETATION: No obstructive ventilatory defect. Patient does appear to have a significant response to bronchodilators noted. There was also a mild decrease in maximum voluntary ventilation secondary to likely deconditioning. As far as lung volumes and numbers could not be calculated, but based on the spirometry there is a suggestion that the patient does have restrictive ventilatory defect. Patient also appears to have severe diffusion impairment. Clinical correlation warranted. MD CHASIDY Smith/MODJae / [id number]
== END 2023-04-20 13:30 | disposition home or self-care (01) ==
LOC: HO.RESP 13:29
PROVIDERS: PCP Internal Medicine; Visit Provider Hospitalist
DX: J44.9 Chronic obstructive pulmonary disease, unspecified (principal)
CPT/HCPCS: 94010; 94727; 94729

== ENCOUNTER → 2023-04-20 16:21 | Outpatient (BNV) | payer OTHER, SELFPAY | PROVIDERS: PCP Internal Medicine; Visit Provider Hospitalist | DX: J44.9 Chronic obstructive pulmonary disease, unspecified (principal) | CPT/HCPCS: 94060; 94727; 94729 ==

== ENCOUNTER 2023-04-23 07:34 | Outpatient (REF) | payer OTHER, SELFPAY | END 2023-04-23 07:35 | disposition home or self-care (01) | LOC: HO.LHD 07:34 | PROVIDERS: Visit Provider Family Medicine | DX: Z79.01 Long term (current) use of anticoagulants (principal) | CPT/HCPCS: 36415; 85610 ==

== ENCOUNTER → 2023-04-27 13:38 | Outpatient (BNVA) | payer OTHER, SELFPAY | PROVIDERS: PCP Internal Medicine; Visit Provider Internal Medicine ==

== ENCOUNTER → 2023-05-07 10:42 | Outpatient (BNVA) | payer OTHER, SELFPAY | PROVIDERS: PCP Internal Medicine; Visit Provider Internal Medicine | DX: I26.99 Other pulmonary embolism without acute cor pulmonale (principal); Z51.81 Encounter for therapeutic drug level monitoring; Z79.01 Long term (current) use of anticoagulants | CPT/HCPCS: 85610; 99211 ==

== ENCOUNTER 2023-05-12 14:01 | Outpatient (AMB) | payer MEDICARE, SELFPAY ==
[2023-05-12 14:09] VITALS: BP 112/56; PULSE 86; O2SAT 97; BMI 47.7
--- NOTE | 2023-05-12 14:09 | A.OFFPC_ITS ---
Vital Signs 3 05/12/23 14:09 Height 6 ft Weight 351 lb 8 oz BMI 47.7 BP 112/56 L Blood Pressure Location Lt brachial Position Sitting Pulse 86 Pulse Source Pulse Oximeter Pulse Oximetry (%) 97 Oxygen Delivery Method Room Air Intake Visit Reasons: 6 Month follow up Allergies iodine [IODINE] Allergy (Intermediate, Verified 05/12/23 14:11) HIVES, bloating latex [LATEX] Allergy (Intermediate, Verified 05/12/23 14:11) HIVES shellfish derived [SHELLFISH DERIVED] Allergy (Intermediate, Verified 05/12/23 14:11) ANAPHYLAXIS Medication List - Last Reviewed 05/12/23 by Danica Walker MA acetaminophen ER 1,300 mg PO DAILY atorvastatin 10 mg PO BEDTIME bupropion HCl 100 mg PO BEDTIME bupropion HCl 200 mg PO DAILY carvedilol 6.25 mg See Protocol PO BID cholecalciferol (vitamin D3) (Vitamin D3) 25 mcg PO DAILY digoxin 250 mcg PO DAILY duloxetine 40 mg PO DAILY epinephrine 0.3 mg IM Q10M PRN gabapentin 300 mg PO BEDTIME gabapentin 100 mg PO BEDTIME hydroxyzine HCl 25 mg PO BEDTIME lidocaine 5% (Lidoderm) 1 patch topical DAILY 30 days multivitamin 1 tab PO DAILY omega-3 fatty acids 500 mg PO DAILY primidone 50 mg PO BID tizanidine 4 mg PO BEDTIME valsartan 20 mg PO BEDTIME warfarin 4 mg See Protocol PO TUTHSA@1800 warfarin 6 mg See Protocol PO SUMOWEFR@1800 Tobacco use date assessed: 05/12/23 Fall risk assessment: 1 Fall in past year Last assessed Fall Risk: 05/12/23 Dental Screening Dental Screen Date: 05/12/23 Did you have a dental visit in the last 12 months?: No Did you have a dental problem in the last 6 months where you did not have access to dental care?: No Was dental information given to patient?: No HPI 6 Month follow up 2 HPI0 Details Patient is 72-year-old male came in today for his regular follow-up visit 6 month Patient says that he is having nocturia even though he stops drinking 3 hours before bedtime He also have frequency of urination during the day as well which is a chronic problem I am starting him on Flomax we will see if he responds to that. We will book a telemedicine visit in 3 weeks to follow-up on that Other than that I would recommend that he stops drinking at least 5 hours before bedtime Tremor:? Patient had seen neurologist and is now taking primidone which is helping him with the tremors Facial rash has responded to hydrocortisone which is due to using CPAP machine Tylenol for osteoarthritis knee as needed Cetirizine for allergies Diabetes:? Hemoglobin A1c is stable at 6.7 patient is off diabetic medications Hypertension and cardiomyopathy coronary artery disease and atrial fibrillation managed through Cardiology [facility] Chronic muscle spasms in the back, patient is still on to tizanidine Patient is morbidly obese is, having difficulty losing weight Patient is seeing number of other providers as well Chronic stasis dermatitis lower extremity, patient injured his right leg few days ago There is no signs of infection there is a clotted blood at the site of injury, leg is healing gradually admission specialist Dr. Loomis Neurologist for tremor management Bindery Operator for cardiomyopathy management Psychiatrist for depression and anxiety management Follow-up in September [facility] Medical History Back pain Heart failure with reduced ejection fraction Dyspnea NOEMI on CPAP COPD (chronic obstructive pulmonary disease) CAD (coronary artery disease) HLD (hyperlipidemia) HTN (hypertension) Diabetes Obstructive sleep apnea Morbid obesity Cardiomyopathy Persistent atrial fibrillation Current use of anticoagulant therapy Surgical History History of knee surgery History of ankle surgery Family History Father HTN (hypertension) Diabetes mellitus Cardiac disease Bone cancer Substance use disorder Mother HTN (hypertension) Lung cancer Social History Household Members: None Housing: Apartment Do you presently have visiting 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 How often do you have a drink containing alcohol?: Never 3. How often do you have six or more drinks on one occasion?: Never Total Score: 0 Score Reviewed/Action Taken: Yes VIRGILIO-7 AMB Questionnaire VIRGILIO-7 Date VIRGILIO - 7 assessed: 11/10/22 Source: Developed by Drs. Momo Barboza, Sue De Leon, Cameron De Jesus and colleagues, with an educational nancy from [employer]. Review of Systems Const Denies chills and Denies fever(s) ENT Denies epistaxis and Denies nasal discharge Card Denies chest pain Resp Denies chest congestion, Denies cough and Denies hemoptysis GI Denies diarrhea and Denies nausea Skin/Breast Denies rash Neuro Reports no additional complaints Psych Reports no additional complaints Endo Reports no additional complaints Physical exam (Primary Care) Vital Signs: Last Vital Signs Pulse 86 05/12/23 14:09 BP 112/56 L 05/12/23 14:09 Pulse Ox 97 05/12/23 14:09 Oxygen Delivery Method Room Air 05/12/23 14:09 BMI result Body Mass Index 47.7 Tobacco/Smoking Status: Tobacco use Status Tobacco use date assessed 05/12/23 05/12/23 14:14 Patient Tobacco Use Status Former Tobacco user 05/12/23 14:14 e-Cigarette/Vaping Use Never Used 05/12/23 14:14 Thrive Assessment: Date of Thrive Assessment Date Thrive assessed 11/10/22 05/12/23 14:14 Const General: cooperative, comfortable and no acute distress Orientation/consciousness: patient oriented x3 HENMT Head: Yes normocephalic Eyes General: appearance normal, both eyes and all related structures Neck Neck: Yes supple Resp Effort & Inspection: normal respiratory effort, no cough and no stridor Cardio Heart sounds: S1 normal heart sound present and S2 normal heart sound present Skin General skin exam: turgor normal Neuro General: patient oriented x3, tone normal and moves all extremities Extrem Other: Chronic stasis dermatitis bilateral lower extremity with right side small clotted blood on skin secondary to injury few days ago no signs of infection or inflammation Upper/lower leg/hip images: 2 1. Small area of clotted blood Results AMB Hemoglobin A1c 2 AMB Hemoglobin A1c 6.7 % Last Edit by Familia Michlele CMA on 05/12/23 14: 29 Results Reviewed Results Reviewed: Laboratory Last Values Hgb A1c (Clinic) 6.7 % (4.0-6.0) H 05/12/23 14:27 Assessment and Plan Assessment & Plan (1) CAD (coronary artery disease): Code(s): I25.10 - Atherosclerotic heart disease of [place] coronary artery without angina pectoris Qualifiers: Associated angina: without angina Coronary Disease-Associated Artery/Lesion type: [place] artery [place] vs. transplanted heart: [place] heart Qualified Code(s): I25.10 - Atherosclerotic heart disease of [place] coronary artery without angina pectoris (2) Allergy to environmental factors: Code(s): Z91.09 - Other allergy status, other than to drugs and biological substances (3) Peripheral vascular disease in diabetes mellitus: Code(s): E11.51 - Type 2 diabetes mellitus with diabetic peripheral angiopathy without gangrene (4) Cardiomyopathy: Code(s): I42.9 - Cardiomyopathy, unspecified Qualifiers: Cardiomyopathy type: unspecified Qualified Code(s): I42.9 - Cardiomyopathy, unspecified (5) Anxiety, generalized: Code(s): F41.1 - Generalized anxiety disorder (6) Diabetes 1.5, managed as type 2: Code(s): E13.9 - Other specified diabetes mellitus without complications (7) Chronic GERD: Code(s): K21.9 - Gastro-esophageal reflux disease without esophagitis (8) Persistent atrial fibrillation: Code(s): I48.19 - Other persistent atrial fibrillation (9) NOEMI on CPAP: Code(s): G47.33 - Obstructive sleep apnea (adult) (pediatric); Z99.89 - Dependence on other enabling machines and devices (10) Morbid obesity: Code(s): E66.01 - Morbid (severe) obesity due to excess calories (11) Depression, major, recurrent: Code(s): F33.9 - Major depressive disorder, recurrent, unspecified Qualifiers: Active/Remission status: in partial remission Qualified Code(s): F33.41 - Major depressive disorder, recurrent, in partial remission (12) Morbid obesity: Code(s): E66.01 - Morbid (severe) obesity due to excess calories (13) Chronic stasis dermatitis: Code(s): I87.2 - Venous insufficiency (chronic) (peripheral) Plan Patient is 72-year-old male came in today for his regular follow-up visit 6 month Patient says that he is having nocturia even though he stops drinking 3 hours before bedtime He also have frequency of urination during the day as well which is a chronic problem I am starting him on Flomax we will see if he responds to that. We will book a telemedicine visit in 3 weeks to follow-up on that Other than that I would recommend that he stops drinking at least 5 hours before bedtime Tremor:? Patient had seen neurologist and is now taking primidone which is helping him with the tremors Facial rash has responded to hydrocortisone which is due to using CPAP machine Tylenol for osteoarthritis knee as needed Cetirizine for allergies Diabetes:? Hemoglobin A1c is stable at 6.7 patient is off diabetic medications Hypertension and cardiomyopathy coronary artery disease and atrial fibrillation managed through Cardiology [facility] Chronic muscle spasms in the back, patient is still on to tizanidine Patient is morbidly obese is, having difficulty losing weight Patient is seeing number of other providers as well Chronic stasis dermatitis lower extremity, patient injured his right leg few days ago There is no signs of infection there is a clotted blood at the site of injury, leg is healing gradually admission specialist Dr. Loomis Neurologist for tremor management Bindery Operator for cardiomyopathy management Psychiatrist for depression and anxiety management Follow-up in September Orders: Orders 2 AMB Hemoglobin A1c Today Z13.9 - Encounter for screening, unspecified Medications: New 2 tamsulosin (Flomax) 0.4 mg PO BEDTIME 30 caps 0RF Coding Level of Care Code Est Pt Level 4 (59212) Diagnoses Coronary artery disease involving [place] coronary artery of [place] heart without angina pectoris I25.10 Associated angina: without angina Coronary Disease-Associated Artery/Lesion type: [place] artery [place] vs. transplanted heart: [place] heart Allergy to environmental factors Z91.09 Peripheral vascular disease in diabetes mellitus E11.51 Cardiomyopathy, unspecified type I42.9 Cardiomyopathy type: unspecified Anxiety, generalized F41.1 Diabetes 1.5, managed as type 2 E13.9 Chronic GERD K21.9 Persistent atrial fibrillation I48.19 NOEMI on CPAP G47.33; Z99.89 Morbid obesity E66.01 Recurrent major depressive disorder, in partial remission F33.41 Active/Remission status: in partial remission Chronic stasis dermatitis I87.2
== END 2023-05-12 15:42 | disposition home or self-care (01) ==
PROVIDERS: Visit Provider Internal Medicine
DX: E11.51 Type 2 diabetes mellitus with diabetic peripheral angiopathy without gangrene (principal)
CPT/HCPCS: 83036; 99214

== ENCOUNTER 2023-05-14 11:41 | Outpatient (AMB) | payer OTHER, SELFPAY ==
[2023-05-14 11:49] LABS: Prothrombin Time Whole Bld POC 37.3 sec (11.1-13.5); ~PT, ~INR - Anti Coag Clinic 3.1 (0.9-1.1)
--- NOTE | 2023-05-14 12:01 | MHC.OFFVISCO ---
Intake Intake Visit Reasons: Anticoagulation Allergies iodine [IODINE] Allergy (Intermediate, Verified 05/14/23 11:42) HIVES, bloating latex [LATEX] Allergy (Intermediate, Verified 05/14/23 11:42) HIVES shellfish derived [SHELLFISH DERIVED] Allergy (Intermediate, Verified 05/14/23 11:42) ANAPHYLAXIS Medication List - Last Reconciled 05/14/23 by Priscila Gilliland RN acetaminophen ER 1,300 mg PO DAILY atorvastatin 10 mg PO BEDTIME bupropion HCl 100 mg PO BEDTIME bupropion HCl 200 mg PO DAILY carvedilol 6.25 mg See Protocol PO BID cholecalciferol (vitamin D3) (Vitamin D3) 25 mcg PO DAILY digoxin 250 mcg orally MWF; duloxetine 40 mg PO DAILY epinephrine 0.3 mg IM Q10M PRN gabapentin 300 mg PO BEDTIME gabapentin 100 mg PO BEDTIME hydroxyzine HCl 25 mg PO BEDTIME lidocaine 5% (Lidoderm) 1 patch topical DAILY 30 days multivitamin 1 tab PO DAILY omega-3 fatty acids 500 mg PO DAILY primidone 50 mg PO BID tamsulosin (Flomax) 0.4 mg PO BEDTIME tizanidine 4 mg PO BEDTIME valsartan 20 mg PO BEDTIME warfarin 4 mg See Protocol PO TUTHSA@1800 warfarin 6 mg See Protocol PO SUMOWEFR@1800 Nursing Note INR: 3.1 JUST OUT OF THERAPEUTIC HAD COVID AND 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
== END 2023-05-14 12:06 | disposition home or self-care (01) ==
LOC: HO.ACS 11:41
PROVIDERS: PCP Internal Medicine; Visit Provider Internal Medicine
DX: Z79.01 Long term (current) use of anticoagulants (principal)

== ENCOUNTER → 2023-05-14 11:41 | Outpatient (BNVA) | payer OTHER, SELFPAY | PROVIDERS: PCP Internal Medicine; Visit Provider Internal Medicine | DX: I26.99 Other pulmonary embolism without acute cor pulmonale (principal); Z79.01 Long term (current) use of anticoagulants; Z51.81 Encounter for therapeutic drug level monitoring | CPT/HCPCS: 85610; 99211 ==

== ENCOUNTER 2023-06-03 08:54 | Outpatient (AMB) | payer OTHER, SELFPAY ==
--- NOTE | 2023-06-03 09:51 | A.OFFPC_ITS ---
Intake Visit Reasons: F/U new med for urine freq ~ [phone] Allergies iodine [IODINE] Allergy (Intermediate, Verified 06/03/23 09:51) HIVES, bloating latex [LATEX] Allergy (Intermediate, Verified 06/03/23 09:51) HIVES shellfish derived [SHELLFISH DERIVED] Allergy (Intermediate, Verified 06/03/23 09:51) ANAPHYLAXIS Medication List - Last Reconciled 06/03/23 by Jaylon Carvajal MD acetaminophen ER 1,300 mg PO DAILY atorvastatin 10 mg PO BEDTIME bupropion HCl 100 mg PO BEDTIME bupropion HCl 200 mg PO DAILY carvedilol 6.25 mg See Protocol PO BID cholecalciferol (vitamin D3) (Vitamin D3) 25 mcg PO DAILY digoxin 250 mcg orally MWF; duloxetine 40 mg PO DAILY epinephrine 0.3 mg IM Q10M PRN gabapentin 300 mg PO BEDTIME gabapentin 100 mg PO BEDTIME hydroxyzine HCl 25 mg PO BEDTIME lidocaine 5% (Lidoderm) 1 patch topical DAILY 30 days multivitamin 1 tab PO DAILY omega-3 fatty acids 500 mg PO DAILY tamsulosin (Flomax) 0.4 mg PO BEDTIME tizanidine 4 mg PO BEDTIME valsartan 20 mg PO BEDTIME warfarin 6 mg See Protocol PO SUMOWEFR@1800 warfarin 4 mg See Protocol PO TUTHSA@1800 90 days Tobacco use date assessed: 06/03/23 Fall risk assessment: 1 Fall in past year Last assessed Fall Risk: 06/03/23 Dental Screening Dental Screen Date: 06/03/23 Did you have a dental visit in the last 12 months?: No Did you have a dental problem in the last 6 months where you did not have access to dental care?: No Was dental information given to patient?: Patient declined HPI F/U new med for urine freq ~ [phone] HPI Details Patient is 72-year-old gentleman who was having frequency of urination and nocturia Was not able to sleep more than 2 or 3 hours before he had to go to bathroom. I started him on Flomax, he is feeling so much better, he is very happy. He tells me that he is sleeping at least 7-8 hours at night without getting up. Patient is tolerating medication he will continue to use that I did offer him a Urology consultation as well, patient says that he is going to pass on that for now. [facility] Medical History Back pain Heart failure with reduced ejection fraction Dyspnea NOEMI on CPAP COPD (chronic obstructive pulmonary disease) CAD (coronary artery disease) HLD (hyperlipidemia) HTN (hypertension) Diabetes Obstructive sleep apnea Morbid obesity Cardiomyopathy Persistent atrial fibrillation Current use of anticoagulant therapy Surgical History History of knee surgery History of ankle surgery Family History Father HTN (hypertension) Diabetes mellitus Cardiac disease Bone cancer Substance use disorder Mother HTN (hypertension) Lung cancer Social History Household Members: None Housing: Apartment Do you presently have visiting nurse or 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 Momo Barboza, Sue De Leon, Cameron De Jesus and colleagues, with an educational nancy from [employer]. Review of Systems Const Denies chills and Denies fever(s) ENT Denies epistaxis and Denies nasal discharge Card Denies chest pain Resp Denies chest congestion, Denies cough and Denies hemoptysis GI Denies diarrhea and Denies nausea Skin/Breast Denies rash Neuro Reports no additional complaints Psych Reports no additional complaints Endo Reports no additional complaints Physical exam (Primary Care) Tobacco/Smoking Status: Tobacco use Status Tobacco use date assessed 06/03/23 06/03/23 09:54 Patient Tobacco Use Status Former Tobacco user 06/03/23 09:54 e-Cigarette/Vaping Use Never Used 06/03/23 09:54 Thrive Assessment: Date of Thrive Assessment Date Thrive assessed 11/10/22 06/03/23 09:54 Telehealth Telehealth Location of provider rendering services: practice address Location of patient: address on file Patient Identification confirmed using: Name, : Yes Telehealth method: voice only Patient verbally consented to treatment: Yes Patient verbally consented to billing insurance company: Yes Patient informed of any privacy concerns related to visit: Yes Minutes spent on Phone/Video with Pt.: 12 Assessment and Plan Assessment & Plan (1) Benign prostatic hyperplasia: Code(s): N40.0 - Benign prostatic hyperplasia without lower urinary tract symptoms Qualifiers: Lower urinary tract symptom presence: symptoms present Lower urinary tract symptom detail: nocturia Qualified Code(s): N40.1 - Benign prostatic hyperplasia with lower urinary tract symptoms; R35.1 - Nocturia Plan Patient is 72-year-old gentleman who was having frequency of urination and nocturia Was not able to sleep more than 2 or 3 hours before he had to go to bathroom. I started him on Flomax, he is feeling so much better, he is very happy. He tells me that he is sleeping at least 7-8 hours at night without getting up. Patient is tolerating medication he will continue to use that I did offer him a Urology consultation as well, patient says that he is going to pass on that for now. Coding Level of Care Code Tele Est Pt Level 3 (66725) Diagnoses Benign prostatic hyperplasia with nocturia N40.1; R35.1 Lower urinary tract symptom presence: symptoms present Lower urinary tract symptom detail: nocturia
== END 2023-06-03 15:13 | disposition home or self-care (01) ==
LOC: HO.HMGC 08:54
PROVIDERS: PCP Internal Medicine; Visit Provider Internal Medicine
DX: N40.1 Benign prostatic hyperplasia with lower urinary tract symptoms (principal); R35.1 Nocturia
CPT/HCPCS: 99213

== ENCOUNTER 2023-06-08 13:04 | Outpatient (AMB) | payer OTHER, SELFPAY ==
[2023-06-08 13:14] LABS: Prothrombin Time Whole Bld POC 38.8 sec (11.1-13.5); ~PT, ~INR - Anti Coag Clinic 3.2 (0.9-1.1)
--- NOTE | 2023-06-08 13:22 | MHC.OFFVISCO ---
Intake Intake Visit Reasons: Anticoagulation Allergies iodine [IODINE] Allergy (Intermediate, Verified 06/08/23 13:04) HIVES, bloating latex [LATEX] Allergy (Intermediate, Verified 06/08/23 13:04) HIVES shellfish derived [SHELLFISH DERIVED] Allergy (Intermediate, Verified 06/08/23 13:04) ANAPHYLAXIS Medication List - Last Reconciled 06/08/23 by Priscila Gilliland RN acetaminophen ER 1,300 mg PO DAILY atorvastatin 10 mg PO BEDTIME bupropion HCl 100 mg PO BEDTIME bupropion HCl 200 mg PO DAILY carvedilol 6.25 mg See Protocol PO BID cholecalciferol (vitamin D3) (Vitamin D3) 25 mcg PO DAILY digoxin 250 mcg orally MWF; duloxetine 40 mg PO DAILY epinephrine 0.3 mg IM Q10M PRN gabapentin 300 mg PO BEDTIME gabapentin 100 mg PO BEDTIME hydroxyzine HCl 25 mg PO BEDTIME lidocaine 5% (Lidoderm) 1 patch topical DAILY 30 days multivitamin 1 tab PO DAILY omega-3 fatty acids 500 mg PO DAILY tamsulosin (Flomax) 0.4 mg PO BEDTIME tizanidine 4 mg PO BEDTIME valsartan 20 mg PO BEDTIME warfarin 6 mg See Protocol PO SUMOWEFR@1800 warfarin 4 mg See Protocol PO TUTHSA@1800 90 days Nursing Note INR: 3.2 ALMOST therapeutic range HAS BEEN ELEVATED -WILL DECREASE WEEKLY DOSE Medications and supplements reviewed- STARTED TAMSULOSIN FOR PROSTATE ENLARGEMENT No changes in health, diet, medications, or supplements, Denies any signs and symptoms of bleeding or bruising or clotting. Bleeding, bruising, clotting discussed Nutritional guidance given- EAT A MIX OF FRUITS AND VEGETABLES , TRY GREENS TODAY Dose: DECREASE WEEKLY DOSE 4MG X 4 DAYS/ 6MG MWF F/U INR: 2 WEEKS Patient verbalizes understanding of instructions given Anti-Coag Initial Assessment Social Hx Patient Tobacco Use Status: Former Tobacco user alcohol intake: never Coding Level of Care Code Est Patient Level 1 Results AMB INR Fingerstick AMB INR Fingerstick 3.2 Last Edit by Priscila Gilliland RN on 06/08/23 13:17 MANUAL ENTRY
== END 2023-06-08 13:25 | disposition home or self-care (01) ==
LOC: HO.ACS 13:04
PROVIDERS: PCP Internal Medicine; Visit Provider Internal Medicine
DX: Z79.01 Long term (current) use of anticoagulants (principal)

== ENCOUNTER → 2023-06-08 13:04 | Outpatient (BNVA) | payer OTHER, SELFPAY | PROVIDERS: PCP Internal Medicine; Visit Provider Internal Medicine | DX: I26.99 Other pulmonary embolism without acute cor pulmonale (principal); Z79.01 Long term (current) use of anticoagulants; Z51.81 Encounter for therapeutic drug level monitoring | CPT/HCPCS: 85610; 99211 ==

== ENCOUNTER 2023-06-22 13:15 | Outpatient (AMB) | payer OTHER, SELFPAY ==
--- NOTE | 2023-06-22 13:22 | MHC.OFFVIS ---
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 The patient has been on CPAP therapy for many years. CPAP therapy has been affecting beneficial. He does use a fullface mask. He has been getting the same mask now for many years. The current masses resulting significant rash on the face primarily in the areas of pressure around the forehead and also around the cheeks. The patient does use his CPAP when he sleeps and also when he takes naps during the daytime. He is very adherent to the therapy. The patient needs to get supplies and therefore I will request a new mask for him, F 20 large mask. This seems to be a better fit. I did provide him with a sample in the office. In the meantime he does complaint of dyspnea on exertion. The patient does carry a diagnosis of COPD. However, we will need to get pulmonary function studies to Confirm this diagnosis. The patient is currently on Asmanex. The patient carries diagnosis of chronic thromboembolic disease. He did have an echocardiogram back in 2020. Although very difficult study and could not assess his pulmonary arterial pressures. Although his RV size and function appeared to be normal. he has always function was decreased Around 40%. At this point the patient will continue using his CPAP therapy. He will return and undergo pulmonary function studies and his repeat chest x-ray. We will discuss additional respiratory medications during the visit. 10/28/2021 the patient is here for a pulmonary follow-up visit. Overall he is doing better from a respiratory status. Does have some dyspnea on exertion mild in severity. Typically limited due to his unsteady gait. The patient does use a cane. He did undergo pulmonary function studies which were very good. No evidence of any obstructive nor restrictive ventilatory defects. The patient had normal diffusing capacity. At this point he is not using any inhalers which is good. In regards to the CPAP he is tolerating the fullface mask, F20 large much better. The CPAP therapy continues to be affecting beneficial. He does use J and now for [employer]. He is wondering if he is due for a new machine. I did reach out to the [employer] and he got his machine back in 2019. Therefore explained to him that he has up to till 2019 for for this machine. It is still working appropriately and he is okay with that. I did request a chest x-ray but he did not have it. He had a chest x-ray last year which demonstrated no acute disease at this point the patient is doing well so will hold off on any more imaging studies. 12/29/2022 the patient is here for a pulmonary follow-up visit. Since we last spoke the patient was recently in the hospital after a fall. He was found to be dehydrated and hypotensive. [place] to be related to his [place] aches and also blood pressure medications. They were adjusted. The patient did have an echocardiogram however demonstrating EF of 35%. In addition to this while he was in a hospital he did have a CT scan of the chest demonstrating subcentimeter pulmonary nodule measuring about 4 mm in size. Otherwise no other parenchymal lung disease. The patient continues uses CPAP every night. CPAP therapy continues to be affecting beneficial. We talked about pulmonary rehabilitation although is difficult for him because of the recent fall causing back pain. The back pain limits his respiratory capacity. Therefore a provide him short course of ibuprofen that he can take. Initially was requesting oxycodone but I explained to him that will be detrimental she goes on opiates because that will suppress his respiratory drive. Therefore he agreed that he will continue taking Tylenol and Motrin as needed to try to improve the pain. Common fall will do the pulmonary function studies to see if he qualifies for pulmonary rehabilitation. 06/22/2023 the patient is here for a pulmonary follow-up visit. The patient continues to struggle with his breathing. He states that he has a hard time breathing in because of significant back pain. He has been evaluated in the past for his back issues but never been able to receive any help. He has not seen pain management. I do believe the pain management can provide him with [facility]. Therefore make a referral this time. We did look at his pulmonary function studies. The patient does have a decreased diffusion impairment and also restrictive ventilatory defect but likely also because of his significant pain and also abdominal girth. Therefore, I do believe that by pulmonary rehab will be helpful once the patient is in better pain control. Patient will continue with curren respiratory therapy. He also has been using CPAP. The CPAP therapy continues to be affecting beneficial in he does use it every night for more than 4 hours a night. The plan is for him to continue CPAP at this time. [facility] Medical History Back pain Heart failure with reduced ejection fraction Dyspnea NOEMI on CPAP COPD (chronic obstructive pulmonary disease) CAD (coronary artery disease) HLD (hyperlipidemia) HTN (hypertension) Diabetes Obstructive sleep apnea Morbid obesity Cardiomyopathy Persistent atrial fibrillation Current use of anticoagulant therapy Surgical History History of knee surgery History of ankle surgery Family History Father HTN (hypertension) Diabetes mellitus Cardiac disease Bone cancer Substance use disorder Mother HTN (hypertension) Lung cancer Social History Household Members: None Housing: Apartment Do you presently have visiting nurse or other home services: No ([employer]) Alcohol intake: never Comment: pt refusing bed alarm and red socks Patient Tobacco Use Status: Former Tobacco user Years Smoked: 30 yrs e-Cigarette/Vaping Use: Never Used Second Hand Smoke Exposure: No service: No Current occupational status: retired and disabled Cognitive needs: No Hearing needs: No Vision needs: Yes Review of Systems Const Denies chills, Denies fever(s) and Denies headache(s) Eyes Denies blurry vision ENT Reports dizziness, Denies headache(s), Denies nasal discharge, Denies nasal obstruction, Denies odynophagia and Denies sinus pain Card Denies chest pain at rest, Denies chest pain with activity and Reports dyspnea on exertion Resp Reports cough, Denies hemoptysis, Reports dyspnea on exertion and Denies wheezing GI Denies diarrhea, Denies odynophagia, Denies vomiting and Denies hematemesis Musc Reports abnormal gait, Reports back pain and Reports myalgias Skin/Breast Denies rash Neuro Denies Neuro-related abnormal movements, Denies Abnormal speech present, Reports abnormal gait, Reports dizziness, Denies headache(s) and Denies Sensory deficit (Neuro) Psych Denies mood swings and Denies paranoia Endo Reports as per HPI Doug/Lymph Denies easy bleeding and Denies easy bruising Aller/Immun Denies wheezing Physical Exam Vital Signs: Last Vital Signs Pulse 92 06/22/23 13:23 Pulse Ox 98 06/22/23 13:23 Oxygen Delivery Method Room Air 06/22/23 13:23 BMI result Body Mass Index 47.7 Const General: alert HEENT Head: Yes other ( rash over his nasal bridge and forehead due to his CPAP mask) Neck Neck: Yes normal visual inspection, Yes full ROM and Yes no lymphadenopathy Chest Chest palpation & inspection: normal inspection of the chest Resp Auscultation: diminished lung sounds Cardio Rate: regular rate Rhythm: regular rhythm Heart sounds: S1 normal heart sound present and S2 normal heart sound present GI Palpation (GI): Soft to palpation and nontender Auscultation: normal bowel sounds Skin General skin exam: rashes and/or lesions noted Neuro Speech: No Abnormal speech present Sensory Exam: No Sensory deficit (Neuro) Assessment & Plan Assessment & Plan (1) NOEMI on CPAP: Code(s): G47.33 - Obstructive sleep apnea (adult) (pediatric); Z99.89 - Dependence on other enabling machines and devices (2) Dyspnea: Code(s): R06.00 - Dyspnea, unspecified Qualifiers: Dyspnea type: dyspnea on exertion Qualified Code(s): R06.09 - Other forms of dyspnea (3) Morbid obesity: Code(s): E66.01 - Morbid (severe) obesity due to excess calories (4) Chronic pulmonary embolism: Code(s): I27.82 - Chronic pulmonary embolism Qualifiers: Pulmonary embolism type: other Acute cor pulmonale presence: without acute cor pulmonale Qualified Code(s): I27.82 - Chronic pulmonary embolism (5) Back pain: Code(s): M54.9 - Dorsalgia, unspecified Qualifiers: Back pain location: back pain in unspecified location Chronicity: unspecified Back pain laterality: unspecified Qualified Code(s): M54.9 - Dorsalgia, unspecified Plan Continue APAP, mask F20 large short-acting beta agonist as needed Avoid opiods pain management referral, affecting his breathing Consider pulmonary rehab continue coumadin diuresis as tolerated follow-up in 6 months Orders: Referrals Pain Management Referral M54.9 - Dorsalgia, unspecified Coding Level of Care Code Est Pt Level 4 (58628) Diagnoses NOEMI on CPAP G47.33; Z99.89 Dyspnea on exertion R06.09 Dyspnea type: dyspnea on exertion Morbid obesity E66.01 Other chronic pulmonary embolism without acute cor pulmonale I27.82 Pulmonary embolism type: other Acute cor pulmonale presence: without acute cor pulmonale Back pain, unspecified back location, unspecified back pain laterality, unspecified chronicity M54.9 Back pain location: back pain in unspecified location Chronicity: unspecified Back pain laterality: unspecified Time Spent (min) 16
[2023-06-22 13:23] VITALS: PULSE 92; O2SAT 98; BMI 47.7
== END 2023-06-22 13:41 | disposition home or self-care (01) ==
PROVIDERS: PCP Internal Medicine; Visit Provider Hospitalist
DX: G47.33 Obstructive sleep apnea (adult) (pediatric) (principal); Z99.89 Dependence on other enabling machines and devices; R06.09 Other forms of dyspnea; E66.01 Morbid (severe) obesity due to excess calories; I27.82 Chronic pulmonary embolism; M54.9 Dorsalgia, unspecified
CPT/HCPCS: 99214

== ENCOUNTER → 2023-06-22 13:15 | Outpatient (BNVA) | payer OTHER, SELFPAY | PROVIDERS: PCP Internal Medicine; Visit Provider Hospitalist | DX: R06.09 Other forms of dyspnea (principal); I27.82 Chronic pulmonary embolism; M54.9 Dorsalgia, unspecified; G47.33 Obstructive sleep apnea (adult) (pediatric); E66.01 Morbid (severe) obesity due to excess calories; Z99.89 Dependence on other enabling machines and devices; Z68.42 Body mass index [BMI] 45.0-49.9, adult | CPT/HCPCS: 99212 ==

== ENCOUNTER 2023-06-25 10:16 | Outpatient (AMB) | payer OTHER, SELFPAY ==
[2023-06-25 10:46] LABS: Prothrombin Time Whole Bld POC 39.1 sec (11.1-13.5); ~PT, ~INR - Anti Coag Clinic 3.3 (0.9-1.1)
--- NOTE | 2023-06-25 10:46 | MHC.OFFVISCO ---
Intake Intake Visit Reasons: Anticoagulation Allergies iodine [IODINE] Allergy (Intermediate, Verified 06/25/23 10:40) HIVES, bloating latex [LATEX] Allergy (Intermediate, Verified 06/25/23 10:40) HIVES shellfish derived [SHELLFISH DERIVED] Allergy (Intermediate, Verified 06/25/23 10:40) ANAPHYLAXIS Medication List - Last Reconciled 06/25/23 by Flores Penaloza RN acetaminophen ER 1,300 mg PO DAILY atorvastatin 10 mg PO BEDTIME bupropion HCl 100 mg PO BEDTIME bupropion HCl 200 mg PO DAILY carvedilol 6.25 mg See Protocol PO BID cholecalciferol (vitamin D3) (Vitamin D3) 25 mcg PO DAILY digoxin 250 mcg orally MWF; duloxetine 40 mg PO DAILY epinephrine 0.3 mg IM Q10M PRN gabapentin 300 mg PO BEDTIME gabapentin 100 mg PO BEDTIME hydroxyzine HCl 25 mg PO BEDTIME lidocaine 5% (Lidoderm) 1 patch topical DAILY 30 days multivitamin 1 tab PO DAILY omega-3 fatty acids 500 mg PO DAILY tamsulosin (Flomax) 0.4 mg PO BEDTIME tizanidine 4 mg PO BEDTIME valsartan 20 mg PO BEDTIME warfarin 6 mg See Protocol PO SUMOWEFR@1800 warfarin 4 mg See Protocol PO TUTHSA@1800 90 days Nursing Note INR 3.3-? out of therapeutic range of 2-3 Medications and supplements reviewed Patient status: pt c.o back pain Medications or supplements: taking percocet prn Diet: same Denies any signs and symptoms of bleeding or clotting or unusual bruising Bleeding, bruising, clotting discussed Nutritional guidance given: eat greens to lower inr, increase greens when taking tylenol Dose: take 4mg today then cont prev 6mg x 3, 4mg x 4 F/U INR Date : 2 weeks?? Patient verbalizing understanding of instructions given. 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
== END 2023-06-25 11:06 | disposition home or self-care (01) ==
LOC: HO.ACS 10:16
PROVIDERS: PCP Internal Medicine; Visit Provider Internal Medicine
DX: Z79.01 Long term (current) use of anticoagulants (principal)

== ENCOUNTER → 2023-06-25 10:16 | Outpatient (BNVA) | payer OTHER, SELFPAY | PROVIDERS: PCP Internal Medicine; Visit Provider Internal Medicine | DX: I26.99 Other pulmonary embolism without acute cor pulmonale (principal); Z79.01 Long term (current) use of anticoagulants; Z51.81 Encounter for therapeutic drug level monitoring | CPT/HCPCS: 85610; 99211 ==

== ENCOUNTER 2023-06-29 13:23 | Outpatient (AMB) | payer OTHER, SELFPAY ==
--- NOTE | 2023-06-29 13:27 | MHC.OFFVIS ---
Intake Vital Signs 06/29/23 13:31 Height 6 ft Weight 342 lb BMI 46.4 BP 140/85 H Blood Pressure Location Lt brachial Position Sitting Pulse 60 Pulse Source Pulse Oximeter Pulse Oximetry (%) 97 Oxygen Delivery Method Room Air Intake Visit Reasons: Dorsalgia, unspecified/no answer Intake Note: Pain today 8/10 Accompanied by: Other Relationship Allergies iodine [IODINE] Allergy (Intermediate, Verified 06/25/23 10:40) HIVES, bloating latex [LATEX] Allergy (Intermediate, Verified 06/25/23 10:40) HIVES shellfish derived [SHELLFISH DERIVED] Allergy (Intermediate, Verified 06/25/23 10:40) ANAPHYLAXIS HPI Dorsalgia, unspecified/no answer HPI Details Is a pleasant 72 years old male with past medical history of frequent falls, heart failure with reduced EF, diabetes (A1C=6.7 on 05/12/23), morbid obesity, NOEMI on CPAP, COPD, CAD, GERD, cardiomyopathy, persistent AFib on anticoagulation, history of knee and ankle surgeries, and chronic back pain presents today for initial evaluation of lower back pain. He is accompanied by his a SALES REPRESENTATIVE [employer] staff for assist him with transfers and patient uses cane with ambulation. Patient reports multiple falls for unknown reasons and had several visits to ERs to evaluate this. He denies losing conscious when he falls and reports history of falls on his knees or on his back. Previous spine imaging reviewed with patient and is noted below. Patient reports previous back injections at [facility] with lost injections about 5 years ago. Back pain is axial and radiates more to the right side and into his sacral regions bilaterally. He denies radicular symptoms in his lower extremities. The pain is constant is rated as 8/10 in intensity. It interferes with his daily activities and functions, breathing and sleeping as well. Bending forward, walking, lifting, prolonged sitting or standing significantly increases his pain. Patient reports he does not tolerate prone or supine position and usually sleeps on his left side. He finds most back relief in semi reclined position. Denies any fever, abdominal or groin pain, weakness, numbness, tingling, bladder or bowel incontinence or saddle anesthesia. Patient reports oxycodone was the most effective for his back pain relief during ER visit last June 2022. I have informed patient that our office currently does not offer opioid prescribing nor is he a candidate for an opioid medication due to his significant cardiac and respiratory history. I advise he avoid opioids for these reasons. Location Mid to lower back, worse on the right side Duration Chronic pain for many years, worsening for past one year due to fall Characteristics of symptom or complaint Aching, shooting, stabbing, dull, sore, hurting, right, pulling, fearful Aggravating or associated factors Movements, walking, bending, lifting, cold weather changes Relieving factors Pain meds recliner, Tylenol, lidocaine patch, gabapentin, muscle relaxant Treatment Injections at [facility] -5 years ago [facility] Medical History Back pain Heart failure with reduced ejection fraction Dyspnea NOEMI on CPAP COPD (chronic obstructive pulmonary disease) CAD (coronary artery disease) HLD (hyperlipidemia) HTN (hypertension) Diabetes Obstructive sleep apnea Morbid obesity Cardiomyopathy Persistent atrial fibrillation Current use of anticoagulant therapy Surgical History History of knee surgery History of ankle surgery Family History Father HTN (hypertension) Diabetes mellitus Cardiac disease Bone cancer Substance use disorder Mother HTN (hypertension) Lung cancer Social History Household Members: None Housing: Apartment Do you presently have visiting nurse or other home services: No ([employer]) Alcohol intake: never Comment: pt refusing bed alarm and red socks Patient Tobacco Use Status: Former Tobacco user Years Smoked: 30 yrs e-Cigarette/Vaping Use: Never Used Second Hand Smoke Exposure: No service: No Current occupational status: retired and disabled Cognitive needs: No Hearing needs: No Vision needs: Yes Review of Systems Const All systems reviewed & are unremarkable except as noted in HPI and below Reports as per HPI, Denies body aches, Denies chills, Reports difficulty sleeping, Reports fatigue, Denies fever(s), Reports frequent falls, Reports lethargy, Reports weakness and Denies weight loss ENT Reports neck pain Musc Reports as per HPI, Reports back pain, Reports arthralgias, Denies joint swelling, Reports limited range of motion, Reports neck pain, Reports numbness, Denies radiating pain into limb, Reports stiffness and Denies tingling Neuro Denies burning sensations, Reports frequent falls, Reports numbness, Denies tingling, Reports paresthesias (bilateral feet, chronic neuropathy) and Reports weakness Endo Reports fatigue Physical Exam Vital Signs: Last Vital Signs Pulse 60 06/29/23 13:31 BP 140/85 H 06/29/23 13:31 Pulse Ox 97 06/29/23 13:31 Oxygen Delivery Method Room Air 06/29/23 13:31 BMI result Body Mass Index 46.4 General: Appears afebrile. Alert and oriented. Mood and affect appropriate. Follows and participates in conversation appropriately. Respiratory effort is unlabored. No cough. Wears facemask. Able to transition from sit to stand unassisted. Uses cane with ambulation. Ambulates with bilaterally normal heel strike and toe off. Back/Spine/Pelvis Other: Limited lumbar ROM due to pain. Antalgic gait with imbalances and mild limping. Can flex forward to 50-60 degrees and extend to 5-10 degrees before experiencing lumbar pain. Demonstrates 5/5 left and 4/5 right strength of quadriceps bilaterally as well as flexion/dorsiflexion of bilateral feet against resistance. 2+ pedal pulses bilaterally. Seated straight leg rise with dorsiflexion negative bilaterally. Diminished patellar and absent achilles reflexes bilaterally. Facet loading test positive bilaterally. Spencer sign, limited Murali?s, Gaenslen, and Stinchfield tests are positive on the right, reproduces right lateral hip and right low back pain. No groin pain with I/E hip rotations. Valsalva maneuver negative. There is decreased sensation over the soles of the feet and the toes. Cervical Spine: cervical ROM normal and No Cervical spine tenderness Thoracic/Lumbar Spine: thoracic and lumbar spine normal to inspection, No Thoracic/lumbar spine scar(s), Lasegue's sign negative, pain with thoraco-lumbar ROM, paraspinal muscle tenderness, thoraco-lumbar ROM limited, thoracic spinal tenderness and lumbar spinal tenderness Pelvis: buttock tenderness on the right Sacroiliac joints: on the right tender to palpation and on the left nontender Results Reviewed Results Reviewed: CT/CT abdomen pelvis w IV con 12/22/22 OSSEOUS STRUCTURES: Vertebral body height and alignment maintained. Vacuum disc phenomenon in the lumbar spine and lower thoracic spine. Diffuse bridging osteophytes. No spinal fracture seen. Posterior elements are well aligned. Intact sternum. No rib fracture identified. Fusion across the sacroiliac joints. The hips are well aligned with degenerative change. No pelvic fracture. IMPRESSION: 1. No acute traumatic finding of the chest, abdomen, or pelvis. 2. Adjacent left lower lobe pulmonary nodules measuring up to 0.4 cm. These are increased in size from the 2017 study. 3. Hepatic steatosis. CT HEAD WITHOUT CONTRAST CT CERVICAL SPINE WITHOUT CONTRAST 12/22/22 CLINICAL INFORMATION: Syncope. Head strike. COMPARISON: CT head and cervical spine from 07/05/2022. FINDINGS: Head: Moderately motion degraded exam. There is no evidence of acute intracranial hemorrhage or edematous territorial infarction. Jacobson-white matter differentiation is preserved. A few foci of hypoattenuation in the periventricular and deep white matter are consistent with mild microangiopathy. Proportional prominence of the ventricles and sulcal spaces without evidence of obstructive hydrocephalus. No abnormal mass effect or midline shift. No extra-axial fluid collections. Calcific atherosclerotic disease of the intracranial internal carotid and vertebral arteries. No demonstrated hyperdense vessel sign. No acute soft tissue or osseous abnormalities. The mastoid air cells and visualized paranasal sinuses are clear. Multifocal odontogenic enamel erosions and periapical lucencies. Cervical Spine: The atlantooccipital and atlantoaxial articulations remain well aligned. Moderate degenerative arthropathy of the atlantodental articulation. Straightening of the normal cervical lordosis. Otherwise, there is anatomic alignment of the vertebral bodies and posterior elements. No evidence of acute fracture or subluxation. The vertebral body heights are maintained. Advanced degenerative disc disease at C6-C7. Moderate degenerative disc disease at C4-C5, C5-C6, and C7-T1. Facet and uncovertebral joint arthropathy leads to osseous encroachment on the neural foramina from C2-C5 and at C6-C7. There is no prevertebral soft tissue swelling. The thyroid gland and remaining cervical soft tissues are within normal limits. The lung apices demonstrate no abnormalities. IMPRESSION: 1. No evidence of acute intracranial hemorrhage or edematous territorial infarction. Mild underlying microangiopathy and generalized cerebral volume loss. 2. No evidence of acute fracture or traumatic subluxation of the cervical spine. Moderate multilevel degenerative spondyloarthropathy of the cervical spine. XR lumbar spine 2-3V, XR thoracic spine 3V 07/05/22 CLINICAL INFORMATION: Reason for Exam s/p fall c back pain COMPARISON: Thoracic spine radiographs 01/04/2019, CT abdomen and pelvis 10/22/2020 TECHNIQUE: AP, lateral, swimmer's lateral view thoracic spine; 3 views lumbosacral spine FINDINGS: Thoracic spine: Normal alignment of the thoracic spine. No subluxation. Minimal anterior height loss of T11 is unchanged. Vertebral body heights otherwise maintained. Changes of underlying DISH with partial anterior longitudinal ligament ossification and bridging osteophytes noted in the thoracic spine. There is disc space narrowing at T7-T8 and T8-T9. Lumbar spine: Minimal retrolisthesis at L1-L2. No additional subluxation. Vertebral body heights lumbar spine are maintained. No acute fracture. Mild disc degenerative change most prominent at L4-L5 and L5-S1 with minimal disc height loss, mild endplate proliferative change. Bilateral lower lumbar facet arthrosis. Minimal vascular calcifications. IMPRESSION: 1. No acute fracture or traumatic subluxation identified in the thoracic or lumbar spine. 2. Unchanged minimal anterior height loss of T11. 3. Changes consistent with DISH. 4. Mild disc degenerative change in the lower lumbar spine. Assessment & Plan Assessment & Plan (1) Lumbar radiculopathy: Code(s): M54.16 - Radiculopathy, lumbar region (2) Lumbosacral spondylosis: Code(s): M47.817 - Spondylosis without myelopathy or radiculopathy, lumbosacral region (3) Lumbar degenerative disc disease: Code(s): M51.36 - Other intervertebral disc degeneration, lumbar region (4) DISH (diffuse idiopathic skeletal hyperostosis): Code(s): M48.10 - Ankylosing hyperostosis [Forestier], site unspecified (5) Morbid obesity with BMI of 45.0-49.9, adult: Code(s): E66.01 - Morbid (severe) obesity due to excess calories; Z68.42 - Body mass index [BMI] 45.0-49.9, adult (6) Gait instability: Code(s): R26.81 - Unsteadiness on feet Plan MRI of the lumbar spine to assess for neural integrity and compression, any endplate and Modic changes, and follow up on previous thoracic and lumbar findings. His back pain is consistent with facetogenic, thoracic and lumbar degenerative disc disease with discogenic and right SIJ pain components. Bending forward, changing his positions, movements, lifting, prolonged sitting or standing significantly increases his pain. Previous cervical, thoracic, and lumbar spine imaging were reviewed today with patient. Rheumatology referral for further evaluation of Diffuse Idiopathic Skeletal Hyperostosis (DISH) and multiple joint pain. We briefly discussed spinal cord stimulation for his chronic back pain, patient reports this is too invasive for him. He will consider diagnostic and therapeutic injections. Patient will return to the clinic to discuss results of the MRI findings when it is done and consider interventional therapy as indicated.?We briefly discussed treatments for low axial low back pain and right sacroiliac joint pain. This patient is also is suffering from DISH syndrome, this is debilitating musculoskeletal disease with no cure and can cause severe pain.? [facility]NA referral for Home PT for gait stabilization and strengthening. Avoid opioids and caution with tizanidine for its sedative and hypotensive effects. Continue Tylenol, heat therapy, gabapentin and daily physical activity as tolerated. Decrease soda consumption and weight optimization as able. All questions and concerns have been answered and patient agreed with the plan, full for MRI review and sooner as needed. Orders: Orders MR lumbar spine wo con 06/29/23 E66.01 - Morbid (severe) obesity due to excess calories, M47.817 - Spondylosis without myelopathy or radiculopathy, lumbosacral region, M48.10 - Ankylosing hyperostosis [Forestier], site unspecified, M51.36 - Other intervertebral disc degeneration, lumbar region, M54.16 - Radiculopathy, lumbar region, Z68.42 - Body mass index [BMI] 45.0-49.9, adult Referrals Rheumatology Referral M48.10 - Ankylosing hyperostosis [Forestier], site unspecified, M51.36 - Other intervertebral disc degeneration, lumbar region [facility] Referral M47.817 - Spondylosis without myelopathy or radiculopathy, lumbosacral region, M48.10 - Ankylosing hyperostosis [Forestier], site unspecified, M51.36 - Other intervertebral disc degeneration, lumbar region, M54.16 - Radiculopathy, lumbar region, R26.81 - Unsteadiness on feet Coding Level of Care Code New Pt Level 4 (81937) Diagnoses Lumbar radiculopathy M54.16 Lumbosacral spondylosis M47.817 Lumbar degenerative disc disease M51.36 DISH (diffuse idiopathic skeletal hyperostosis) M48.10 Morbid obesity with BMI of 45.0-49.9, adult E66.01; Z68.42 Gait instability R26.81
[2023-06-29 13:31] VITALS: BP 140/85; PULSE 60; O2SAT 97; BMI 46.4
== END 2023-06-29 14:12 | disposition home or self-care (01) ==
PROVIDERS: PCP Internal Medicine; Referring Provider Hospitalist; Visit Provider Nurse Practitioner Family
DX: M54.16 Radiculopathy, lumbar region (principal); M47.817 Spondylosis without myelopathy or radiculopathy, lumbosacral region; M51.36 Other intervertebral disc degeneration, lumbar region; M48.10 Ankylosing hyperostosis [Forestier], site unspecified; E66.01 Morbid (severe) obesity due to excess calories; Z68.42 Body mass index [BMI] 45.0-49.9, adult; R26.81 Unsteadiness on feet
CPT/HCPCS: 99204

== ENCOUNTER → 2023-06-29 13:23 | Outpatient (BNVA) | payer OTHER, SELFPAY | PROVIDERS: PCP Internal Medicine; Referring Provider Hospitalist; Visit Provider Nurse Practitioner Family | DX: M54.16 Radiculopathy, lumbar region (principal); M47.817 Spondylosis without myelopathy or radiculopathy, lumbosacral region; M51.36 Other intervertebral disc degeneration, lumbar region; M48.10 Ankylosing hyperostosis [Forestier], site unspecified; R26.81 Unsteadiness on feet; E66.01 Morbid (severe) obesity due to excess calories; Z68.42 Body mass index [BMI] 45.0-49.9, adult | CPT/HCPCS: 99202 ==

== ENCOUNTER 2023-07-09 13:28 | Outpatient (AMB) | payer OTHER, SELFPAY ==
[2023-07-09 13:50] LABS: Prothrombin Time Whole Bld POC 34.7 sec (11.1-13.5); ~PT, ~INR - Anti Coag Clinic 2.9 (0.9-1.1)
--- NOTE | 2023-07-09 13:59 | MHC.OFFVISCO ---
Intake Intake Visit Reasons: Anticoagulation Allergies iodine [IODINE] Allergy (Intermediate, Verified 07/09/23 13:41) HIVES, bloating latex [LATEX] Allergy (Intermediate, Verified 07/09/23 13:41) HIVES shellfish derived [SHELLFISH DERIVED] Allergy (Intermediate, Verified 07/09/23 13:41) ANAPHYLAXIS Medication List - Last Reconciled 07/09/23 by Priscila Gilliland RN acetaminophen ER 1,300 mg PO DAILY atorvastatin 10 mg PO BEDTIME bupropion HCl 100 mg PO BEDTIME bupropion HCl 200 mg PO DAILY carvedilol 6.25 mg See Protocol PO BID cetirizine 10 mg PO DAILY cholecalciferol (vitamin D3) (Vitamin D3) 25 mcg PO DAILY digoxin 250 mcg orally MWF; duloxetine 40 mg PO DAILY epinephrine 0.3 mg IM Q10M PRN gabapentin 300 mg PO BEDTIME gabapentin 100 mg PO BEDTIME hydroxyzine HCl 25 mg PO BEDTIME multivitamin 1 tab PO DAILY omega-3 fatty acids 500 mg PO DAILY tamsulosin (Flomax) 0.4 mg PO BEDTIME tizanidine 4 mg PO BEDTIME valsartan 20 mg PO BEDTIME warfarin 6 mg See Protocol PO SUMOWEFR@1800 warfarin 4 mg See Protocol PO TUTHSA@1800 90 days Nursing Note INR 2.9 out of therapeutic range Medications and supplements reviewed Patient status: HAVING BACK PAIN Medications or supplements: NO CHANGES Diet: GOOD Denies any signs and symptoms of bleeding or clotting or unusual bruising Bleeding, bruising, clotting discussed Nutritional guidance given: REVIEW FOOD LIST WEEKLY AND EAT A MIX OF FRUITS AND VEGETABLES Dose: KEEPS SAME FOR NOW, 6MG X 3 DAYS, 4MG X 4 DAYS F/U INR Date : 2 WEEKS?? Patient verbalizing understanding of instructions given. Anti-Coag Initial Assessment Social Hx Patient Tobacco Use Status: Former Tobacco user alcohol intake: never Coding Level of Care Code Est Patient Level 1 Diagnoses Current use of anticoagulant therapy Z79.01 Assessment & Plan Assessment & Plan (1) Current use of anticoagulant therapy: Code(s): Z79.01 - [facility] (current) use of anticoagulants Category: Medical
== END 2023-07-09 14:02 | disposition home or self-care (01) ==
LOC: HO.ACS 13:28
PROVIDERS: PCP Internal Medicine; Visit Provider Internal Medicine
DX: Z79.01 Long term (current) use of anticoagulants (principal)

== ENCOUNTER → 2023-07-09 13:28 | Outpatient (BNVA) | payer OTHER, SELFPAY | PROVIDERS: PCP Internal Medicine; Visit Provider Internal Medicine | DX: I26.99 Other pulmonary embolism without acute cor pulmonale (principal); Z79.01 Long term (current) use of anticoagulants; Z51.81 Encounter for therapeutic drug level monitoring | CPT/HCPCS: 85610; 99211 ==

== ENCOUNTER 2023-07-30 10:35 | Outpatient (AMB) | payer OTHER, SELFPAY ==
[2023-07-30 10:58] LABS: Prothrombin Time Whole Bld POC 54.4 sec (11.1-13.5); ~PT, ~INR - Anti Coag Clinic 4.5 (0.9-1.1)
--- NOTE | 2023-07-30 11:09 | MHC.OFFVISCO ---
Intake Intake Visit Reasons: Anticoagulation Allergies iodine [IODINE] Allergy (Intermediate, Verified 07/30/23 10:51) HIVES, bloating latex [LATEX] Allergy (Intermediate, Verified 07/30/23 10:51) HIVES shellfish derived [SHELLFISH DERIVED] Allergy (Intermediate, Verified 07/30/23 10:51) ANAPHYLAXIS Medication List - Last Reconciled 07/30/23 by Brittany Hassan, RN acetaminophen ER 1,300 mg PO DAILY atorvastatin 10 mg PO BEDTIME bupropion HCl 100 mg PO BEDTIME bupropion HCl 200 mg PO DAILY carvedilol 6.25 mg See Protocol PO BID cetirizine 10 mg PO DAILY cholecalciferol (vitamin D3) (Vitamin D3) 25 mcg PO DAILY digoxin 250 mcg orally MWF; duloxetine 40 mg PO DAILY epinephrine 0.3 mg IM Q10M PRN gabapentin 300 mg PO BEDTIME gabapentin 100 mg PO BEDTIME hydroxyzine HCl 25 mg PO BEDTIME multivitamin 1 tab PO DAILY omega-3 fatty acids 500 mg PO DAILY tamsulosin (Flomax) 0.4 mg PO BEDTIME tizanidine 4 mg PO BEDTIME valsartan 20 mg PO BEDTIME warfarin See Protocol orally 1 tab QD 4 days per week, 1.5 tabs QD x 3 days per week, adjusted per [facility] clinic protocol; 90 days Nursing Note Amb to [facility] using cane, accomp by SHOP ESTIMATOR, feeling lousy pt describes not being able to sleep at night due to pain right lower back (x 6 months per pt) sts diff walking, sts seen by pain mgt, was supposed to have a rheumatology visit next week they cancelled it sts he does not have another appt sched reports 7/10 pain at present, sts not taking any tylenol it doesn't work offered to pt alternating use of heat or cold therapy can't do that pt came up with many reasons for not doing any of suggested therapies Medications and supplements reviewed No changes in health, medications, or supplements- sts he has not really been eating this week- just peanut butter crackers because I can't stand to cook suggested meals on wheels program I can't eat that food, it is lousy and frozen, they make it all beginning of the week and then give it out all week, frozen suggested meals through [facility] its the same lousy food sts also haven't moved bowels in 5 days This RN expressed concern then pt sts sometimes I don't go for longer than that then later sts this is the longest, I feel so backed up Denies any unusual signs and symptoms of bruising, bleeding Denies any new Chest pain, SOB, or clotting INR: 4.5 above therapeutic range Dose: no warfarin today the resume usual dosing of 4mg on Wednesday and Wednesday try to get greens in (not a green eater) and try to eat foods that will help move bowels F/U INR: Monday 07/02, encouraged to also contact PCP regarding bowel issues, call for new rheumatology appt, pt sts I can't get through then relates to recent concerns over warfarin refill Patient verbalizes understanding of instructions given with accurate read back/ teach back of dosing STS ALSO THAT HE HAS LOST 15LBS IN PAST 2 WEEKS compose note to PCP Anti-Coag Initial Assessment Social Hx Patient Tobacco Use Status: Former Tobacco user alcohol intake: never Questionnaires HAS-BLED Does the patient had uncontrolled Hypertension?: No Does the patient have renal disease?: No Does the patient have liver disease?: No Does the patient have a history of stroke?: No Has the patient had major bleeding or predisposition to bleeding?: No Does the patient have labile INRs?: Yes Is the patient over 65 years of age?: Yes Is the patient on medications that gives them a predisposition to bleeding?: Yes Does the patient use alcohol?: No HAS-BLED Score: 3 CHADSVASC Age: 66-74 Gender: Male Does the patient have a history of CHF?: Yes Does the patient have a history of Hypertension?: Yes Does the patient have a history of Stroke/TIA/Thromboembolism?: Yes Does the patient have a history of Vascular Disease (prior PR, PAD or aortic plaque)?: No Does the patient have a history of Diabetes?: Yes CHADS VACS Score: 6 Ml Prediction Score Rsk VTE Active Cancer: No Previous VTE, excluding superficial vein thrombosis: Yes Reduced mobility: Yes Already known Thrombophilic Condition: Yes With-in last month Trauma and/or Surgery: No Elderly 70 year or older: Yes Heart and/or Respiratory Failure: Yes Acute Myocardial infarction and/or Ischemic Stroke: No Acute Infection and/or Rheumatologic Disorder: No Obesity (BMI 30 or greater): Yes Ongoing Hormonal Treatment: No Score: 12 Ml Score less than 4; Low Risk of VTE Ml Score 4 or greater; High Risk of VTE Coding Level of Care Code Est Patient Level 2 Diagnoses Current use of anticoagulant therapy Z79.01 Time Spent (min) 30 Assessment & Plan Assessment & Plan (1) Current use of anticoagulant therapy: Code(s): 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
== END 2023-07-30 12:09 | disposition home or self-care (01) ==
LOC: HO.ACS 10:35
PROVIDERS: PCP Internal Medicine; Visit Provider Internal Medicine
DX: Z79.01 Long term (current) use of anticoagulants (principal)

== ENCOUNTER → 2023-07-30 10:35 | Outpatient (BNVA) | payer OTHER, SELFPAY | PROVIDERS: PCP Internal Medicine; Visit Provider Internal Medicine | DX: I26.99 Other pulmonary embolism without acute cor pulmonale (principal); Z79.01 Long term (current) use of anticoagulants; Z51.81 Encounter for therapeutic drug level monitoring | CPT/HCPCS: 85610; 99212 ==

== ENCOUNTER 2023-08-02 10:47 | Outpatient (AMB) | payer OTHER, SELFPAY ==
--- NOTE | 2023-08-02 11:01 | MHC.OFFVISCO ---
Intake Intake Visit Reasons: Anticoagulation Allergies iodine [IODINE] Allergy (Intermediate, Verified 08/02/23 10:48) HIVES, bloating latex [LATEX] Allergy (Intermediate, Verified 08/02/23 10:48) HIVES shellfish derived [SHELLFISH DERIVED] Allergy (Intermediate, Verified 08/02/23 10:48) ANAPHYLAXIS Medication List - Last Reconciled 08/02/23 by Priscila Gilliland RN acetaminophen ER 1,300 mg PO DAILY atorvastatin 10 mg PO BEDTIME bupropion HCl 100 mg PO BEDTIME bupropion HCl 200 mg PO DAILY carvedilol 6.25 mg See Protocol PO BID 90 days cetirizine 10 mg PO DAILY cholecalciferol (vitamin D3) (Vitamin D3) 25 mcg PO DAILY digoxin 250 mcg orally MWF; duloxetine 40 mg PO DAILY epinephrine 0.3 mg IM Q10M PRN gabapentin 300 mg PO BEDTIME gabapentin 100 mg PO BEDTIME hydroxyzine HCl 25 mg PO BEDTIME multivitamin 1 tab PO DAILY omega-3 fatty acids 500 mg PO DAILY sennosides-docusate sodium 8.6-50 mg (Senokot-S) 2 tab-caps (2 x 8.6-50 mg) PO BEDTIME tamsulosin (Flomax) 0.4 mg PO BEDTIME tizanidine 4 mg PO BEDTIME valsartan 20 mg PO BEDTIME warfarin See Protocol orally 1 tab QD 4 days per week, 1.5 tabs QD x 3 days per week, adjusted per [facility] clinic protocol; 90 days Nursing Note INR: 2.2 in therapeutic range Medications and supplements reviewed- to bring list in Pt omega 3 changed to fish oil same company but different kind- possible effect on INR, taking tylenol pm and benedryl and tizanidine and was feeling woozy at night, it was explained that it may be all too much at one time that be causing him to feel too woozy, enc to decrease Bowel sensitivity to foods - does not tolerate greens well or ice cream or bates- GI upsets can effect INR loosing intentional weight - possible effect on INR Denies any signs and symptoms of bleeding or bruising or clotting. 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
[2023-08-02 11:03] LABS: Prothrombin Time Whole Bld POC 25.9 sec (11.1-13.5); ~PT, ~INR - Anti Coag Clinic 2.2 (0.9-1.1)
== END 2023-08-02 11:36 | disposition home or self-care (01) ==
LOC: HO.ACS 10:47
PROVIDERS: PCP Internal Medicine; Visit Provider Internal Medicine
DX: Z79.01 Long term (current) use of anticoagulants (principal)

== ENCOUNTER → 2023-08-02 10:47 | Outpatient (BNVA) | payer OTHER, SELFPAY | PROVIDERS: PCP Internal Medicine; Visit Provider Internal Medicine | DX: I26.99 Other pulmonary embolism without acute cor pulmonale (principal); Z79.01 Long term (current) use of anticoagulants; Z51.81 Encounter for therapeutic drug level monitoring | CPT/HCPCS: 85610; 99212 ==

== ENCOUNTER 2023-08-12 13:32 | Inpatient (IN) | payer OTHER, SELFPAY ==
--- NOTE | ~2023-08-12 | XR_ITS ---
EXAMINATION: XR CHEST CLINICAL INFORMATION: Chest pain COMPARISON: Chest 07/05/2022, chest CT 12/22/2022 TECHNIQUE: AP upright portable view of the chest was obtained. 2:35 PM FINDINGS: Stable enlargement of the cardiac silhouette. Slight streaky density at the right cardiophrenic angle is similar to the prior study. Likely prominent epicardial fat pad. No pneumothorax or interstitial pulmonary edema. No pleural effusion. No acute osseous abnormality. XR/XR chest 1V IMPRESSION: No acute cardiopulmonary disease.
[2023-08-12 13:54] VITALS: BP 112/72; BP 134/73; PULSE 77; PULSE 86; RESP 18; TEMP 36.6; O2SAT 96; O2SAT 97; BMI 45.4
--- NOTE | 2023-08-12 14:00 | ECG_ITS ---
Test Reason : CP Blood Pressure : / mmHG Vent. Rate : 083 BPM Atrial Rate : 000 BPM P-R Int : 000 ms QRS Dur : 100 ms QT Int : 386 ms P-R-T Axes : 000 089 069 degrees QTc Int : 453 ms Atrial fibrillation Low voltage QRS Incomplete right bundle branch block Abnormal ECG When compared with ECG of 22-DEC-2022 16:52, QRS axis Shifted right Referred By: Generic ED Physician Electronically Signed By:Campbell Petty
[2023-08-12 14:45] LABS: MANUAL DIFF FLAG NO
[2023-08-12 14:48] LABS: Basophils Percent Auto 0.5 % (0-2); Eosinophils Absolute Auto 0.2 X10*3/uL (0.0-0.4); Eosinophils Percent Auto 2.3 % (0-4); Hematocrit 40.6 % (42.0-52.0); Hemoglobin 13.6 g/dl (14.0-18.0); Imm Gran Abs Auto 0.03 X10*3/uL (0.00-0.03); Imm Gran Pct Auto 0.4 % (0.0-0.4); Lymphocytes Absolute Auto 1.5 X10*3/uL (1.2-4.9); Lymphocytes Percent Auto 18.6 % (20-40); Mean Corpuscular HGB Conc 33.5 g/dl (31.0-36.0); Mean Corpuscular Hemoglobin 31.8 pg (27.0-33.0); Mean Corpuscular Volume 94.9 fL (80.0-98.0); Mean Platelet Volume 10.6 fL (9.4-12.4); Monocytes Absolute Auto 0.5 X10*3/uL (0.1-1.2); Monocytes Percent Auto 6.1 % (2-11); Neutrophils Absolute Auto 5.9 x10*3/uL (2.0-8.3); Neutrophils Percent Auto 72.1 % (45-73); Platelet Count 218 X10*3/uL (160-400); Red Blood Count 4.28 X10*6/uL (4.60-5.80); Red Cell Distribution Width 12.3 % (11.0-16.0); White Blood Count 8.2 X10*3/uL (4.8-10.8)
[2023-08-12 14:51] LABS: INTERNATIONAL NORM RATIO 1.9 (0.9-1.1); Prothrombin Time 23.6 SEC (11.1-13.3)
[2023-08-12 15:03] LABS: Digoxin 0.2 ng/mL (0.8-2.0)
[2023-08-12 15:04] LABS: Alanine Aminotransferase 18 U/L (0-40); Albumin Level 3.8 g/dL (3.5-5.0); Alkaline Phosphatase 63 U/L (39-117); Anion Gap 11 (12-20); Aspartate Amino Transferase 21 U/L (5-37); Bilirubin Direct 0.3 mg/dL (0.0-0.5); Bilirubin Total 0.8 mg/dL (0.0-1.0); Blood Urea Nitrogen 10 mg/dL (9-16); Carbon Dioxide 28 mmol/L (22-29); Chloride 105 mmol/L (96-108); Creatinine Clr Calc Pharmacy 114.2; Estimated Glomerular Filt Rate > 60; Glucose Random 139 mg/dL (60-115); Lipase 25 U/L (8-78); Potassium 4.3 mmol/L (3.3-5.1); Sodium 140 mmol/L (135-145); Total Protein 6.6 g/dL (6.5-8.0)
[2023-08-12 15:11] LABS: COVID-19 Test Negative (Negative); IDNOW Serial# 58CA691E; Troponin-I High Sensitivity 43.4 ng/L (<3.5-35.0)
--- NOTE | 2023-08-12 15:13 | ED.CHESTPAIN ---
HPI - Chest Pain General Chief Complaint: Chest Pain Stated Complaint: CP Time Seen by Provider: 08/12/23 14:06 Source: patient and old records reviewed Mode of arrival: EMS Limitations: no limitations History of Present Illness HPI narrative: 73 yo male with PMH of COPD, obesity, DM, PVD, NOEMI on CPAP, PAF and PE on coumadin, CAD, HTN - he tells me years ago he had a cath ?angioplasty but I cannot find this in his history at this time he notes pleuritic chest pain x 2.5 hours upon waking. Had recent URI - he notes compliance with all medications but has had a recent low grade temp, cough and the cough has been persistent. MD complaint: chest pain Pertinent past history: coronary artery disease Onset (ago): hour(s) (2.5) Timing of current episode: episodic Prior episodes: No Onset: during rest Pain location: substernal Pain radiation: none Severity: moderate Quality: sharp Relieving factors: nothing Exacerbating factors: inspiration Context: recent illness Treatment prior to arrival: none Related Data Home Medications Medication Instructions Recorded Confirmed multivitamin 1 tab PO DAILY 10/22/20 08/12/23 acetaminophen 650 mg 1,300 mg PO DAILY 08/05/21 08/12/23 tablet,extended release omega-3 fatty acids 500 mg capsule 500 mg PO DAILY 08/05/21 08/12/23 gabapentin 100 mg capsule 100 mg PO BID 09/25/22 08/12/23 duloxetine 20 mg capsule,delayed 20 mg PO DAILY 10/16/22 08/12/23 release bupropion HCl 100 mg tablet 200 mg PO DAILY 11/10/22 08/12/23 bupropion HCl 100 mg tablet 100 mg PO BEDTIME 12/23/22 08/12/23 cholecalciferol (vitamin D3) 25 50 mcg PO DAILY 12/23/22 08/12/23 mcg (1,000 unit) tablet (Vitamin D3) gabapentin 300 mg capsule 300 mg PO BEDTIME 12/23/22 08/12/23 valsartan 40 mg tablet 20 mg PO BEDTIME 12/23/22 08/12/23 digoxin 250 mcg (0.25 mg) tablet 250 mcg PO .COMPLEX 05/14/23 08/12/23 cetirizine 10 mg tablet 10 mg PO DAILY 06/29/23 08/12/23 diphenhydramine HCl 25 mg capsule 25 mg PO .COMPLEX PRN Allergy 08/02/23 08/12/23 (Allergy (diphenhydramine)) Symptoms furosemide 20 mg tablet 20 mg PO QAM 08/12/23 08/12/23 tamsulosin 0.4 mg capsule (Flomax) 0.8 mg PO BEDTIME 08/12/23 08/12/23 warfarin 4 mg tablet 0.5 mg PO TUFR 08/12/23 08/12/23 warfarin 4 mg tablet 4 mg PO DAILY 08/12/23 08/12/23 Previous Rx's Medication Instructions Recorded atorvastatin 10 mg tablet 10 mg PO BEDTIME #90 tabs 05/10/23 tizanidine 4 mg tablet 4 mg PO BEDTIME #90 tabs 06/02/23 sennosides 8.6 mg-docusate sodium 2 tab-cap (2 x 8.6-50 mg) PO 07/30/23 50 mg tablet (Senokot-S) BEDTIME #60 tabs carvedilol 6.25 mg tablet 6.25 mg PO BID 90 days #180 tabs 08/02/23 Allergies Allergy/AdvReac Type Severity Reaction Status Date / Time iodine [IODINE] Allergy Intermediate HIVES, Verified 08/02/23 10:48 bloating latex [LATEX] Allergy Intermediate HIVES Verified 08/02/23 10:48 shellfish derived Allergy Intermediate ANAPHYLAXIS Verified 08/02/23 10:48 [SHELLFISH DERIVED] Review of Systems Review of Systems: Constitutional : No Weight loss, No Fever, No Chills ENT/Mouth : No sore throat, No Rhinorrhea Eyes: No Eye Pain, No Swelling Cardiovascular : pos Chest Pain, no SOB, no Dyspnea on Exertion, No Orthopnea, No Edema, No Palpitations Respiratory : pos Cough, No Sputum Gastrointestinal : no Nausea, No Vomiting, No Diarrhea, No abdominal Pain, No Hematochezia, No Melena Genitourinary : No Dysuria, No Urinary Frequency Musculoskeletal : No joint pain, No Myalgias, No Joint Swelling Skin : No Skin Lesions, No rash Neuro : No Weakness, No Numbness, No Dizziness, No Headache Psych : No Anxiety/Panic, No Depression Heme/Lymph: No Bruising, No Lymphadenopathy Endocrine : No Polyuria, No Polydipsia All other systems reviewed and are negative ON LICENSE OF [facility] Past Medical History Attestation statement: The following information was validated with the patient. Source: old records reviewed Medical History Back pain Heart failure with reduced ejection fraction Dyspnea NOEMI on CPAP COPD (chronic obstructive pulmonary disease) CAD (coronary artery disease) HLD (hyperlipidemia) HTN (hypertension) Diabetes Obstructive sleep apnea Morbid obesity Cardiomyopathy Persistent atrial fibrillation Current use of anticoagulant therapy Surgical History History of knee surgery History of ankle surgery Family History Family History Father HTN (hypertension) Diabetes mellitus Cardiac disease Bone cancer Substance use disorder Mother HTN (hypertension) Lung cancer Social History Social History Household Members: None Housing: Apartment Do you presently have visiting nurse or other home services: No ([employer]) Alcohol intake: never Comment: pt refusing bed alarm and red socks Patient Tobacco Use Status: Former Tobacco user Years Smoked: 30 yrs Smoked in Last 30 Days: No e-Cigarette/Vaping Use: Never Used Second Hand Smoke Exposure: No Use of substances other than those prescribed or required for medical reasons: No Advance Directives: No Advance Directives Information Provided: Yes service: No Current occupational status: retired and disabled Cognitive needs: No Hearing needs: No Vision needs: Yes Physical Exam Vital Signs: Vital Signs: Last Vital Signs Temp 97.7 F 08/12/23 20:00 Pulse 106 H 08/12/23 20:00 Resp 16 08/12/23 20:00 BP 144/99 H 08/12/23 20:00 Pulse Ox 94 08/12/23 20:00 O2 Del Method Room Air 08/12/23 20:00 BMI result Body Mass Index 45.4 Appearance: Alert. Oriented X3. No acute distress. Eyes: Pupils equal, round and reactive to light. ENT: Pharynx normal. Neck: Normal inspection. Neck supple. CVS: irregular heart rate and rhythm. Pulses normal. Chest wall: he reports costochondral ttp Respiratory: No respiratory distress. Breath sounds normal. Abdomen: Soft and nontender. Obese Skin: Skin warm and dry. Normal skin color. Normal skin turgor. Extremities: No lower extremity edema. No calf ttp Neuro: Oriented X 3. No motor deficit. No sensory deficit. Course Course Course Narrative: ddimer negative Medications Administered Discontinued Medications Generic Name Dose Route Start Last Admin Trade Name Gonzalez PRN Reason Stop Dose Admin Colchicine 0.6 mg 08/12/23 18:59 08/12/23 19:12 Colchicine 0.6 Mg Tablet PO 08/12/23 19:00 0.6 mg ONCE ONE Administration Procedures Procedure Narrative Procedure Narrative: bedside limited ECHO due to body habitus apical parasternal and subxiphoid no obvious gross wall motion abnormality has small pericardial effusion Medical Decision Making Medical Decision Making MDM Narrative: 73 yo male with PMH of COPD, obesity, DM, PVD, NOEMI on CPAP, PAF and PE on coumadin, CAD, HTN here with c/o sharp pleuritic chest pain in setting of URI just resolved 2 days ago - he reports compliance with coumadin. He did recently have a URI - at this time will need basic labs, CXR, viral panel and repeat troponin - it is atypical for ACS but he has significant cardiac risk factors and reports to me a possible hx of angioplasty in the past though I do not see this in cardiology notes. He could have myocarditis as well. If INR is subtherapeutic will obtain ddimer. Differential Diagnosis Differential Diagnoses: The differential diagnosis associated with the presentation includes chest wall, viral, VTE, acs Admission/Observation Consideration of admission/observation: Escalation of care including admission/observation considered admit per cardiology - colchicine as well Consult Healthcare Provider Management of the patient was discussed with: Hospitalist (will admit) and Director Manufacturing Engineering (cardiology - Dr. Petty colchicine and admit) Lab Data [facility] Lab Attestation statement: I reviewed the patient's lab results. 08/12/23 14:35 08/12/23 14:35 Labs: Lab Results 08/12/23 08/12/23 Range/Units 14:35 17:42 WBC 8.2 (4.8-10.8) X10*3/uL RBC 4.28 L (4.60-5.80) X10*6/uL Hgb 13.6 L (14.0-18.0) g/dl Hct 40.6 L (42.0-52.0) % MCV 94.9 (80.0-98.0) fL MCH 31.8 (27.0-33.0) pg MCHC 33.5 (31.0-36.0) g/dl RDW 12.3 (11.0-16.0) % Plt Count 218 D (160-400) X10*3/uL MPV 10.6 (9.4-12.4) fL Immature Gran % (Auto) 0.4 (0.0-0.4) % Neut % (Auto) 72.1 (45-73) % Lymph % (Auto) 18.6 L (20-40) % [place] % (Auto) 6.1 (2-11) % Eos % (Auto) 2.3 (0-4) % Baso % (Auto) 0.5 (0-2) % Lymph # (Auto) 1.5 (1.2-4.9) X10*3/uL [place] # (Auto) 0.5 (0.1-1.2) X10*3/uL Eos # (Auto) 0.2 (0.0-0.4) X10*3/uL Baso # (Auto) 0.0 (0.0-0.2) X10*3/uL Abs Immat Gran (auto) 0.03 (0.00-0.03) X10*3/uL Absolute Neuts (auto) 5.9 (2.0-8.3) x10*3/uL Absolute Nucleated RBC 0.000 (0.0-0.012) X10*3/uL Nucleated RBC % (auto) 0.0 (0.0-0.2) /100WBC ESR 16 H (0-15) MM/HR PT 23.6 H (11.1-13.3) SEC INR 1.9 H (0.9-1.1) D-Dimer High Sensitivty 217 NG/ML Sodium 140 (135-145) mmol/L Potassium 4.3 (3.3-5.1) mmol/L Chloride 105 (96-108) mmol/L Carbon Dioxide 28 (22-29) mmol/L Anion Gap 11 L (12-20) BUN 10 (9-16) mg/dL Creatinine 0.90 (0.5-1.4) mg/dL Estim Creat Clear Calc 114.2 Estimated GFR > 60 Random Glucose 139 H (60-115) mg/dL Calcium 9.0 (8.4-10.2) mg/dL Magnesium 2.0 (1.6-2.6) mg/dL Total Bilirubin 0.8 (0.0-1.0) mg/dL Direct Bilirubin 0.3 (0.0-0.5) mg/dL AST 21 (5-37) U/L ALT 18 (0-40) U/L Alkaline Phosphatase 63 (39-117) U/L Troponin I High Sens 43.4 H D 45.1 H (<3.5-35.0) ng/L C-Reactive Protein 0.33 (< or = 0.50) mg/dL Total Protein 6.6 (6.5-8.0) g/dL Albumin 3.8 (3.5-5.0) g/dL Lipase 25 (8-78) U/L Digoxin 0.2 L (0.8-2.0) ng/mL COVID-19 (JESSICA) Negative (Negative) COVID-19 Clin Com See Note Independent Interpretation I performed an independent interpretation of an: EKG and Plain X-Ray (normal ) Interpretation: Rate: 83 Rhythm: afib [place]: normal low voltage QRS complex. ST T wave : nonspecific ST T wave changed no PABLO qTC: 453 prior studies: no acute ischemia The study has been interpreted contemporaneously by me. . Radiology Impression Discussion of test interpretation with radiology: I have reviewed the radiologist's reading. Independent Historian Clinical information obtained from an independent historian. History obtained from or confirmed by: EMS External Record Review External record reviewed: Inpatient record Discharge Plan Discharge Clinical Impression: Chest pain, pleuritic, Elevated troponin Patient Disposition: Admitted As Inpatient
[2023-08-12 15:27] LABS: D Dimer High Sensitivity 217 NG/ML
[2023-08-12 15:45] VITALS: BP 117/78; PULSE 83; RESP 18; TEMP 36.5; O2SAT 97
[2023-08-12 18:15] VITALS: BP 146/91; PULSE 80; RESP 16; TEMP 36.8; O2SAT 94
[2023-08-12 18:16] LABS: Troponin-I High Sensitivity 45.1 ng/L (<3.5-35.0)
[2023-08-12 19:07] LABS: C Reactive Protein 0.33 mg/dL (< or = 0.50)
[2023-08-12] MEDS: Colchicine 0.6 MG TABLET PO (19:12)
[2023-08-12 19:45] LABS: Erythrocyte Sedimentation Rate 16 MM/HR (0-15)
[2023-08-12 20:00] VITALS: BP 144/99; PULSE 106; RESP 16; TEMP 36.5; O2SAT 94
--- NOTE | 2023-08-12 21:15 | PHA.MEDREC ---
Pharmacy Consult ? Medication Reconciliation Pharmacy has completed the medication reconciliation.Patient verified medications with list from home. Patient reports he takes 4mg warfarin Wednesday-Wednesday but on Wednesday and Wednesday he takes 6mg. Says he has appt at coumadin clinic next Wednesday. Rhonda Galindo CPhT
[2023-08-12 21:32] LABS: Troponin-I High Sensitivity 46.4 ng/L (<3.5-35.0)
[2023-08-12 22:00] VITALS: BP 143/67; PULSE 96; RESP 20; TEMP 36.6; O2SAT 97
--- NOTE | 2023-08-12 22:25 | MHC.EDTECH ---
Patient vitals taken ,patient said he was too warm and did not want to wear gown,Patient belonging list done ,Fresh ice water given and agustín audelia .
[2023-08-12] MEDS: Gabapentin 300 MG CAPSULE PO (22:43)
[2023-08-12] MEDS: TiZANidine HCL 4 MG TABLET PO (22:43)
[2023-08-12] MEDS: Atorvastatin Calcium 10 MG TABLET PO (22:44)
[2023-08-12] MEDS: buPROPion HCL 100 MG TABLET 200 MG PO (22:44)
[2023-08-12] MEDS: Gabapentin 100 MG CAPSULE PO (22:44)
[2023-08-12] MEDS: Warfarin Sodium 4 MG TABLET PO (22:45)
[2023-08-12] MEDS: Tamsulosin HCL 0.4 MG CAPSULE 0.8 MG PO (22:56)
[2023-08-12] MEDS: Valsartan 40 MG TABLET 20 MG PO (22:57)
[2023-08-12] MEDS: Acetaminophen 325 MG TABLET 650 MG PO (22:57)
[2023-08-12] MEDS: carvediloL 6.25 MG TABLET PO (22:58)
[2023-08-12 23:34] VITALS: BP 153/87; PULSE 117; RESP 20; TEMP 36.6; O2SAT 96
[2023-08-13] VITALS (8 sets, daily range): BP systolic 102–170; BP diastolic 50–85; PULSE 75–120; RESP 16–20; TEMP 36.2–36.6; O2SAT 95–98
--- NOTE | 2023-08-13 00:33 | P.HPHOSP_ITS ---
History of Present Illness Date of Service: 08/12/23 Attending physician on admission: Cindy Zapata Chief Complaint: Chest pain Misbah Mcknight is a 73 years old man with past medical history significant for chronic atrial fibrillation on warfarin, essential hypertension, COPD, CAD, anxiety, depression, obstructive sleep apnea on CPAP, GERD and diabetes presents to the emergency department complaining with chest pain that started around noon while he was sitting resting. He described the pain as a sharp sensation, intensity 6/10. Pain increases with deep inspiration. He did not report significant shortness of breath, diaphoresis, palpitations or dizziness. He mentioned having intermittent episode of dry cough but he has not been coughing today. He denied any acute gastrointestinal genitourinary symptoms. There is no fever or chills reported. Patient did not report tobacco smoking, alcohol abuse or illicit drug use. In the ED, he was found to have stable vital signs. There is hypertension. His oxygen saturation is normal on room air. Blood workup is remarkable for mild elevated troponin. BNP is normal. Renal and liver function are normal. There is no leukocytosis. CXR is negative. At bedside echocardiogram was done by ED provider was limited due to patient body habitus. It did repair and apical parasternal and subxiphoid without obvious gross wall motion abnormalities. A small pericardial effusion was noted. EKG showed atrial fibrillation, heart rate 80 bpm, IRBBB w/right acid deviation w/o ischemic changes. ED tx: Colchicine 0.6 mg PO. Review of Systems 2 Review of Systems: All 12 systems were reviewed and normal except as noted in HPI. [facility] Medical History Back pain Heart failure with reduced ejection fraction Dyspnea NOEMI on CPAP COPD (chronic obstructive pulmonary disease) CAD (coronary artery disease) HLD (hyperlipidemia) HTN (hypertension) Diabetes Obstructive sleep apnea Morbid obesity Cardiomyopathy Persistent atrial fibrillation Current use of anticoagulant therapy Family History Father HTN (hypertension) Diabetes mellitus Cardiac disease Bone cancer Substance use disorder Mother HTN (hypertension) Lung cancer Surgical History History of knee surgery History of ankle surgery Social History Household Members: None Housing: Apartment Do you presently have visiting nurse or other home services: No ([employer]) Alcohol intake: never Comment: pt refusing bed alarm and red socks Patient Tobacco Use Status: Former Tobacco user Years Smoked: 30 yrs Smoked in Last 30 Days: No e-Cigarette/Vaping Use: Never Used Second Hand Smoke Exposure: No Use of substances other than those prescribed or required for medical reasons: No Advance Directives: No Advance Directives Information Provided: Yes service: No Current occupational status: retired and disabled Cognitive needs: No Hearing needs: No Vision needs: Yes Meds Allergies Allergy/AdvReac Type Severity Reaction Status Date / Time iodine [IODINE] Allergy Intermediate HIVES, Verified 08/02/23 10:48 bloating latex [LATEX] Allergy Intermediate HIVES Verified 08/02/23 10:48 shellfish derived Allergy Intermediate ANAPHYLAXIS Verified 08/02/23 10:48 [SHELLFISH DERIVED] Active Medications: Current Medications Acetaminophen (Acetaminophen 325 Mg Tablet) 650 mg PO Q6H PRN PRN Reason: Headache Acetaminophen (Acetaminophen 325 Mg Tablet) 650 mg PO DAILY [facility] Last Admin: 08/12/23 22:57 Dose: 650 mg Atorvastatin Calcium (Atorvastatin Calcium 10 Mg Tablet) 10 mg PO BEDTIME [facility] Last Admin: 08/12/23 22:44 Dose: 10 mg Bupropion HCl (Bupropion Hcl 100 Mg Tablet) 200 mg PO BEDTIME JACKELINE Last Admin: 08/12/23 22:44 Dose: 200 mg Bupropion HCl (Bupropion Hcl 100 Mg Tablet) 100 mg PO DAILY [facility] Carvedilol (Carvedilol 6.25 Mg Tablet) 6.25 mg PO BID [facility]; Protocol Last Admin: 08/12/23 22:58 Dose: 6.25 mg Colchicine (Colchicine 0.6 Mg Tablet) 0.6 mg PO BID [facility] Digoxin (Digoxin 0.25 Mg Tablet) 0.25 mg PO MoWeFr@0900 [facility] Diphenhydramine HCl (Diphenhydramine Hcl 25 Mg Capsule) 50 mg PO BEDTIME PRN PRN Reason: Allergy Symptoms Duloxetine HCl (Duloxetine Hcl 20 Mg Capsule.Dr) 40 mg PO DAILY JACKELINE Furosemide (Furosemide 20 Mg Tablet) 20 mg PO DAILY [facility]; Protocol Gabapentin (Gabapentin 100 Mg Capsule) 100 mg PO BID [facility] Last Admin: 08/12/23 22:44 Dose: 100 mg Gabapentin (Gabapentin 300 Mg Capsule) 300 mg PO BEDTIME [facility] Last Admin: 08/12/23 22:43 Dose: 300 mg Loratadine (Loratadine 10 Mg Tablet) 10 mg PO DAILY [facility] Multivitamins/Vitamin C (Multivitamin Tablet) 1 tab PO DAILY [facility] Senna/Docusate Sodium (Sennosides/Docusate Sodium Tablet) 2 tab PO BEDTIME [facility] Last Admin: 08/12/23 22:45 Dose: Not Given Sodium Chloride (0.9 % Sodium Chloride Flush 3 Ml Syringe) 3 ml IVFLUSH [facility] Tamsulosin HCl (Tamsulosin Hcl 0.4 Mg Capsule) 0.8 mg PO BEDTIME [facility] Last Admin: 08/12/23 22:56 Dose: 0.8 mg Tizanidine HCl (Tizanidine Hcl 4 Mg Tablet) 4 mg PO BEDTIME [facility] Last Admin: 08/12/23 22:43 Dose: 4 mg Valsartan (Valsartan 40 Mg Tablet) 20 mg PO BEDTIME [facility]; Protocol Last Admin: 08/12/23 22:57 Dose: 20 mg Vitamin D (Cholecalciferol (Vitamin D3) 25 Mcg Tablet) 50 mcg PO DAILY [facility] Warfarin Sodium (Warfarin Sodium 2 Mg Tablet) 2 mg PO TuFr@1800 [facility] Last Admin: 08/12/23 22:56 Dose: Not Given Warfarin Sodium (Warfarin Sodium 4 Mg Tablet) 4 mg PO DAILY@1800 [facility] Last Admin: 08/12/23 22:45 Dose: 4 mg Home Medications Medication Instructions Recorded Confirmed Last Taken Type multivitamin 1 tab PO DAILY 10/22/20 08/12/23 08/10/23 History acetaminophen 650 mg 1,300 mg PO DAILY 08/05/21 08/12/23 08/10/23 History tablet,extended release omega-3 fatty acids 500 mg capsule 500 mg PO DAILY 08/05/21 08/12/23 08/10/23 History gabapentin 100 mg capsule 100 mg PO BID 09/25/22 08/12/23 08/10/23 History duloxetine 20 mg capsule,delayed 40 mg PO DAILY 10/16/22 08/12/23 08/10/23 History release bupropion HCl 100 mg tablet 200 mg PO DAILY 11/10/22 08/12/23 08/10/23 History bupropion HCl 100 mg tablet 100 mg PO BEDTIME 12/23/22 08/12/2308/10/24 History cholecalciferol (vitamin D3) 25 50 mcg PO DAILY 12/23/22 08/12/23 08/10/23 History mcg (1,000 unit) tablet (Vitamin D3) gabapentin 300 mg capsule 300 mg PO BEDTIME 12/23/22 08/12/23 08/10/23 History valsartan 40 mg tablet 20 mg PO BEDTIME 12/23/22 08/12/23 08/10/23 History digoxin 250 mcg (0.25 mg) tablet 250 mcg PO MOWEFR 05/14/23 08/12/23 08/10/23 History cetirizine 10 mg tablet 10 mg PO DAILY 06/29/23 08/12/23 08/10/23 History diphenhydramine HCl 25 mg capsule 25 mg PO .COMPLEX PRN Allergy 08/02/23 08/12/23 08/10/23 History (Allergy (diphenhydramine)) Symptoms furosemide 20 mg tablet 20 mg PO QAM 08/12/23 08/12/23 08/10/23 History tamsulosin 0.4 mg capsule (Flomax) 0.8 mg PO BEDTIME 08/12/23 08/12/23 08/10/23 History warfarin 4 mg tablet 2 mg PO TUFR 08/12/23 08/12/23 08/10/23 History warfarin 4 mg tablet 4 mg PO DAILY 08/12/23 08/12/23 08/10/23 History Physical Exam 2 Vital Signs and Narrative: Vital Signs: Last Vital Signs Temp 97.8 F 08/12/23 23:34 Pulse 117 H 08/12/23 23:34 Resp 20 08/12/23 23:34 BP 153/87 H 08/12/23 23:34 Pulse Ox 96 08/12/23 23:34 O2 Del Method Room Air 08/12/23 23:34 BMI result Body Mass Index 45.4 Constitutional - Awake and Alert, No apparent distress. Cooperative. Obese. Eating in bed. HEENT - pupils equally round. Heart - irregular rhythm. Normal rate. Respiratory - Normal lung expansion, Normal respiratory effort, No respiratory distress, CTA bilaterally Gastrointestinal - NT / ND; +BS; No rebound or guarding Extremities - no calf tenderness bilaterally, no swelling Musculoskeletal - Normal inspection, normal ROM Skin - Warm/Dry Neurological - Alert & oriented x3. Psychological - Appropriate affect Results Labs 08/12/23 14:35 08/12/23 14:35 Labs: Laboratory Results - last 24 hr 08/12/23 14:35 MCV 94.9 MCH 31.8 MCHC 33.5 RDW 12.3 Plt Count 218 D MPV 10.6 Immature Gran % (Auto) 0.4 Neut % (Auto) 72.1 Lymph % (Auto) 18.6 L [place] % (Auto) 6.1 Eos % (Auto) 2.3 Baso % (Auto) 0.5 Lymph # (Auto) 1.5 [place] # (Auto) 0.5 Eos # (Auto) 0.2 Baso # (Auto) 0.0 Abs Immat Gran (auto) 0.03 Absolute Neuts (auto) 5.9 Absolute Nucleated RBC 0.000 Nucleated RBC % (auto) 0.0 ESR 16 H PT 23.6 H INR 1.9 H D-Dimer High Sensitivty 217 Anion Gap 11 L Estim Creat Clear Calc 114.2 Estimated GFR > 60 Random Glucose 139 H Calcium 9.0 Magnesium 2.0 Total Bilirubin 0.8 Direct Bilirubin 0.3 AST 21 ALT 18 Alkaline Phosphatase 63 C-Reactive Protein 0.33 Total Protein 6.6 Albumin 3.8 Lipase 25 Digoxin 0.2 L COVID-19 (JESSICA) Negative COVID-19 Clin Com See Note Imaging Radiologist's Impressions: Impressions Chest X-Ray 08/12/23 14:37 IMPRESSION: No acute cardiopulmonary disease. Assessment and Plan (1) Chest pain, pleuritic: Status: Acute (2) Elevated troponin: Status: Acute Plan Misbah Mcknight is a 73 years old man admitted with: * Chest pain, pleuritic. Concern for myocarditis + possible pericardial effusion. Admit to hospitalist service. Telemetry. Pulse oximetry. Check TTE. Continue therapy with colchicine 0.6 mg p.o. b.i.d. Continue to monitor troponin. Continue Lasix. Appreciate cardiology input. * Elevated troponin. Possible myocarditis. Continue to monitor troponin. Check TTE. * Atrial fibrillation, rate controlled. Continue warfarin, Coreg and digoxin. Check INR daily. * Essential hypertension. Continue valsartan and Coreg. * Neuropathy. Continue gabapentin. * BPH. Continue tamsulosin. * Hyperlipidemia. Continue statin. * History of depression. Continue bupropion and Cymbalta. * Morbid obesity. BMI 45.4 kg/m2. Weight loss. * Obstructive sleep apnea. Continue nocturnal CPAP. * History of diabetes. Not taking medications for this. Continue to monitor glucose. DVT prophylaxis: On warfarin. Code status: Full. Patient will need hospitalization for at least 2 midnights for chest pain evaluation and treatment. He will need cardiac monitoring, empiric treatment with colchicine and evaluation by specialist. Quality Stroke Does the patient have a stroke diagnosis?: No VTE Prior VTE?: No VTE Risk Level:: Medical - moderate - high VTE Device Contraindication: Treatment Not Indicated VTE Drug Contraindication: N/A - Med Ordered
[2023-08-13] MEDS: 0.9 % Sodium Chloride Flush 3 ML SYRINGE IVFLUSH ×4 (03:56→20:43)
[2023-08-13 06:41] LABS: MANUAL DIFF FLAG NO
[2023-08-13 06:47] LABS: Basophils Absolute Auto 0.1 X10*3/uL (0.0-0.2); Basophils Percent Auto 0.6 % (0-2); Eosinophils Absolute Auto 0.2 X10*3/uL (0.0-0.4); Hematocrit 38.9 % (42.0-52.0); Hemoglobin 12.7 g/dl (14.0-18.0); Imm Gran Abs Auto 0.03 X10*3/uL (0.00-0.03); Imm Gran Pct Auto 0.4 % (0.0-0.4); Lymphocytes Absolute Auto 1.8 X10*3/uL (1.2-4.9); Lymphocytes Percent Auto 22.9 % (20-40); Mean Corpuscular HGB Conc 32.6 g/dl (31.0-36.0); Mean Corpuscular Hemoglobin 31.1 pg (27.0-33.0); Mean Corpuscular Volume 95.3 fL (80.0-98.0); Mean Platelet Volume 11.2 fL (9.4-12.4); Monocytes Absolute Auto 0.5 X10*3/uL (0.1-1.2); Monocytes Percent Auto 6.8 % (2-11); Neutrophils Absolute Auto 5.3 x10*3/uL (2.0-8.3); Neutrophils Percent Auto 66.3 % (45-73); Platelet Count 200 X10*3/uL (160-400); Red Blood Count 4.08 X10*6/uL (4.60-5.80); Red Cell Distribution Width 12.4 % (11.0-16.0)
[2023-08-13 06:53] LABS: Prothrombin Time 24.6 SEC (11.1-13.3)
--- NOTE | 2023-08-13 07:00 | CA_ITS ---
Transthoracic Echocardiogram Patient (Last, First, Middle): Misbah Iverson M Gender: Male Date of : 1950 Age: 73 Procedure Date: 08/13/2023 Procedure Type: Transthoracic Echocardiogram Location: ER Height: 182.88 cm Weight: 151.96 kg BSA: 2.65 m2 Heart Rate: bpm BP: 104 / 67 mmHg Branch Controller: Referring MD: Cindy Zapata MD Symptoms: Pericardial effusion Study Quality: Adequate w contrast ECG Rhythm: Atrial Fibrillation Conclusions: - Mildly increased left ventricular cavity size. There is moderately increased left ventricular wall thickness. The left ventricular systolic function is severely decreased. The visually estimated ejection fraction is between 10-15%. - Mildly increased right ventricular cavity size. There is mildly decreased right ventricular systolic function. - The left atrium is severely dilated. - There is no evidence of pericardial effusion. Findings Procedure Information Contrast agent, definity, is being given per protocol without apparent complications. The quality of the study was technically difficult. The study quality is limited by patients body habitus. Left Ventricle Mildly increased left ventricular cavity size. There is moderately increased left ventricular wall thickness. The left ventricular systolic function is severely decreased. The visually estimated ejection fraction is between 10 15%. There is severe global hypokinesis. Diastolic function is indeterminate on the basis of available data. Right Ventricle Mildly increased right ventricular cavity size. There is mildly decreased right ventricular systolic function. Atria The left atrium is severely dilated. Aortic Valve The aortic valve was not well visualized. There is no aortic valve stenosis. There is trace (trivial) aortic valve regurgitation. Mitral Valve The mitral valve appears normal. There is trace mitral valve regurgitation. There is no mitral valve stenosis. Pulmonic Valve The pulmonic valve was not well visualized. Tricuspid Valve Normal tricuspid valve structure. There is no tricuspid valve regurgitation. Moderately elevated right atrial pressure. There is no evidence of pulmonary hypertension. Great Vessels The aorta was not well visualized. Venous The inferior vena cava is dilated and collapses greater than 50% with inspiration. Pericardium/Pleural There is no evidence of pericardial effusion. Prior Study Comparison Changes noted compared to prior study dated: 12/11/2022. LVEF 10-15%, severe LA dilation., Mild RV dysfunction. Measurements 2D Linear Measurements IVSd: 1.40 0.6-0.9/0.6-1.0 cm LVIDd: 6.34 3.9-5.3/4.2-5.9 cm LVIDd Index: 2.39 2.4-3.2/2.2-3.1 cm/m2 LVIDs: 5.14 2.0-3.6 cm LVPWd: 1.37 0.7-1.1 cm LV Mass: 521.27 67-162/88-224 g LV Mass Index: 196.70 43-95/49-115 g/m2 2D Systolic Function EF 4C: 16.10 >55% EF 2C: 6.85 >55% EF BiP: 10.90 >55% Mitral Valve MV Pk E: 1.05 MV Decel Time: 170.00 E'Lateral: 6.53 E'Medial: 5.55 E/E' Med: 18.90 E/E' Lat: 16.10 PHT: 50.00 MVA PHT: 4.40 Decel [place]: 6.19 Aortic Valve AoV Pk Tiburcio: 1.35 AoV Mn Tiburcio: 0.93 AoV VTI: 0.23 AoV Pk Grad: 7.00 Aov Mn Grad: 4.00 LVOT LVOT Pk Tiburcio: 0.65 LVOT Mn Tiburcio: 0.43 LVOT VTI: 0.13 LVOT Pk Grad: 2.00 LVOT Mn Grad: 1.00 Diastolic Function MV Pk E: 1.05 E'Medial: 5.55 E/E' Med: 18.90 E' Laterial: 6.53 E/E' Lat: 16.10 Right Ventricle TAPSE (mm): 20.00 TVS' Tiburcio: 9.36 Tricuspid Valve TR Pk Tiburcio: 1.46 TR Pk Grad: 9.00 RA Press: 8.00 RVSP: 17.00 Updated in Other Vendor System with Status of Final Campbell Petty MD electronically signed on 08/13/2023 12:09:28 PM with status of Final
[2023-08-13 07:03] LABS: Alanine Aminotransferase 16 U/L (0-40); Albumin Level 3.6 g/dL (3.5-5.0); Alkaline Phosphatase 58 U/L (39-117); Anion Gap 12 (12-20); Aspartate Amino Transferase 21 U/L (5-37); Bilirubin Total 0.8 mg/dL (0.0-1.0); Blood Urea Nitrogen 11 mg/dL (9-16); Calcium 8.7 mg/dL (8.4-10.2); Carbon Dioxide 28 mmol/L (22-29); Chloride 105 mmol/L (96-108); Creatinine Clr Calc Pharmacy 109.4; Estimated Glomerular Filt Rate > 60; Glucose Random 122 mg/dL (60-115); Sodium 141 mmol/L (135-145); Total Protein 6.1 g/dL (6.5-8.0)
[2023-08-13 07:11] LABS: Troponin-I High Sensitivity 40.9 ng/L (<3.5-35.0)
[2023-08-13] MEDS: Cholecalciferol (Vitamin D3) 25 MCG TABLET 50 MCG PO (08:09)
[2023-08-13] MEDS: buPROPion HCL 100 MG TABLET PO (08:09)
[2023-08-13] MEDS: DULoxetine HCl 20 MG CAPSULE.DR 40 MG PO (08:09)
[2023-08-13] MEDS: Loratadine 10 MG TABLET PO (08:09)
[2023-08-13] MEDS: Multivitamin TABLET 1 TAB PO (08:09)
[2023-08-13] MEDS: Colchicine 0.6 MG TABLET PO (08:09)
[2023-08-13] MEDS: Acetaminophen 325 MG TABLET 650 MG PO (08:10)
[2023-08-13] MEDS: Furosemide 20 MG TABLET PO ×2 (08:10→20:37)
[2023-08-13] MEDS: Gabapentin 100 MG CAPSULE PO ×2 (08:10→20:39)
[2023-08-13] MEDS: carvediloL 6.25 MG TABLET PO ×2 (08:12→20:38)
[2023-08-13] MEDS: Digoxin 0.25 MG TABLET PO (09:21)
--- NOTE | 2023-08-13 09:37 | PC.NURSE ---
pt medicated per order, audiology technician at bedside speaking with patient
--- NOTE | 2023-08-13 11:04 | MHC.CM.PN ---
IMM 08/13 PT LIVES ALONE, USES CANE FOR MOBILITY. HAS A CPAP FOR SLEEP. PT HAS 4 HRS/DAY X 5X/WK [employer] THROUGH [facility]. +HCP ON FILE. PCP DR. THORNTON AT [facility] [place]. DP: HOME WITH RESUMPTION OF [employer] SERVICES. PT WILL NEED A LYFT RIDE HOME. CM WILL CONTINUE TO FOLLOW FOR ANY CHANGE IN DC PLAN/NEEDS.
--- NOTE | 2023-08-13 11:20 | PC.NURSE ---
pt changed over to inpt hospital bed for pt comfort, stratigraphy teacher intact-afib on monitor
--- NOTE | 2023-08-13 12:09 | P.CONCA_ITS ---
History of Present Illness History of Present Illness Date of Service: 08/13/23 Requesting physician: Manuel Briscoe Chief complaint: chest pain Narrative: [age] year gentleman with known history of chronic atrial fibrillation and cardiomyopathy with EF of 35% who presented to hospital with chest discomfort. He was getting a pressure-like feeling in his chest which was worse with deep breathing. Apparently and ultrasound was performed by the ER physician and noted small amount of pericardial effusion and patient was admitted for further assessment. He was given colchicine. This morning he is saying that he feels okay and has no significant discomfort. He is also denying any shortness of breath. No fevers chills or any viral illness recently. He has known history of atrial fibrillation and has been on carvedilol and digoxin for rate control. Given significant left atrial dilation and morbid obesity it was felt that he may not be able to maintain sinus rhythm. He is on Coumadin for anticoagulation. He is also on valsartan 20 mg daily. He previously had soft blood pressures and medications could not be titrated aggressively for cardiomyopathy. He had echocardiogram performed which is showing EF 10-15% which is significantly dropped compared to before, his LV is also mildly dilated. There is no obvious evidence of pericardial effusion. [facility] Past Medical History Medical History Back pain Heart failure with reduced ejection fraction Dyspnea NOEMI on CPAP COPD (chronic obstructive pulmonary disease) CAD (coronary artery disease) HLD (hyperlipidemia) HTN (hypertension) Diabetes Obstructive sleep apnea Morbid obesity Cardiomyopathy Persistent atrial fibrillation Current use of anticoagulant therapy Family History Family History Father HTN (hypertension) Diabetes mellitus Cardiac disease Bone cancer Substance use disorder Mother HTN (hypertension) Lung cancer Surgical History Surgical History History of knee surgery History of ankle surgery Social History Social History Household Members: None Housing: Apartment Do you presently have visiting nurse or other home services: No ([employer]) Alcohol intake: never Comment: pt refusing bed alarm and red socks Patient Tobacco Use Status: Former Tobacco user Years Smoked: 30 yrs Smoked in Last 30 Days: No e-Cigarette/Vaping Use: Never Used Second Hand Smoke Exposure: No Use of substances other than those prescribed or required for medical reasons: No Advance Directives: No Advance Directives Information Provided: Yes service: No Current occupational status: retired and disabled Cognitive needs: No Hearing needs: No Vision needs: Yes Meds Allergies Allergy/AdvReac Type Severity Reaction Status Date / Time iodine [IODINE] Allergy Intermediate HIVES, Verified 08/02/23 10:48 bloating latex [LATEX] Allergy Intermediate HIVES Verified 08/02/23 10:48 shellfish derived Allergy Intermediate ANAPHYLAXIS Verified 08/02/23 10:48 [SHELLFISH DERIVED] Active Medications: Current Medications Acetaminophen (Acetaminophen 325 Mg Tablet) 650 mg PO Q6H PRN PRN Reason: Headache Acetaminophen (Acetaminophen 325 Mg Tablet) 650 mg PO DAILY [facility] Last Admin: 08/13/23 08:10 Dose: 650 mg Atorvastatin Calcium (Atorvastatin Calcium 10 Mg Tablet) 10 mg PO BEDTIME [facility] Last Admin: 08/12/23 22:44 Dose: 10 mg Bupropion HCl (Bupropion Hcl 100 Mg Tablet) 200 mg PO BEDTIME [facility] Last Admin: 08/12/23 22:44 Dose: 200 mg Bupropion HCl (Bupropion Hcl 100 Mg Tablet) 100 mg PO DAILY [facility] Last Admin: 08/13/23 08:09 Dose: 100 mg Carvedilol (Carvedilol 6.25 Mg Tablet) 6.25 mg PO BID [facility]; Protocol Last Admin: 08/13/23 08:12 Dose: 6.25 mg Colchicine (Colchicine 0.6 Mg Tablet) 0.6 mg PO BID [facility] Last Admin: 08/13/23 08:09 Dose: 0.6 mg Digoxin (Digoxin 0.25 Mg Tablet) 0.25 mg PO MoWeFr@0900 [facility] Last Admin: 08/13/23 09:21 Dose: 0.25 mg Diphenhydramine HCl (Diphenhydramine Hcl 25 Mg Capsule) 50 mg PO BEDTIME PRN PRN Reason: Allergy Symptoms Duloxetine HCl (Duloxetine Hcl 20 Mg Capsule.Dr) 40 mg PO DAILY [facility] Last Admin: 08/13/23 08:09 Dose: 40 mg Furosemide (Furosemide 20 Mg Tablet) 20 mg PO DAILY [facility]; Protocol Last Admin: 08/13/23 08:10 Dose: 20 mg Gabapentin (Gabapentin 100 Mg Capsule) 100 mg PO BID [facility] Last Admin: 08/13/23 08:10 Dose: 100 mg Gabapentin (Gabapentin 300 Mg Capsule) 300 mg PO BEDTIME [facility] Last Admin: 08/12/23 22:43 Dose: 300 mg Loratadine (Loratadine 10 Mg Tablet) 10 mg PO DAILY [facility] Last Admin: 08/13/23 08:09 Dose: 10 mg Multivitamins/Vitamin C (Multivitamin Tablet) 1 tab PO DAILY [facility] Last Admin: 08/13/23 08:09 Dose: 1 tab Senna/Docusate Sodium (Sennosides/Docusate Sodium Tablet) 2 tab PO BEDTIME [facility] Last Admin: 08/12/23 22:45 Dose: Not Given Sodium Chloride (0.9 % Sodium Chloride Flush 3 Ml Syringe) 3 ml IVFLUSH QSHIFT [facility] Last Admin: 08/13/23 08:10 Dose: 3 ml Tamsulosin HCl (Tamsulosin Hcl 0.4 Mg Capsule) 0.8 mg PO BEDTIME [facility] Last Admin: 08/12/23 22:56 Dose: 0.8 mg Tizanidine HCl (Tizanidine Hcl 4 Mg Tablet) 4 mg PO BEDTIME [facility] Last Admin: 08/12/23 22:43 Dose: 4 mg Valsartan (Valsartan 40 Mg Tablet) 20 mg PO BEDTIME [facility]; Protocol Last Admin: 08/12/23 22:57 Dose: 20 mg Vitamin D (Cholecalciferol (Vitamin D3) 25 Mcg Tablet) 50 mcg PO DAILY [facility] Last Admin: 08/13/23 08:09 Dose: 50 mcg Warfarin Sodium (Warfarin Sodium 2 Mg Tablet) 2 mg PO TuFr@1800 [facility] Last Admin: 08/12/23 22:56 Dose: Not Given Warfarin Sodium (Warfarin Sodium 4 Mg Tablet) 4 mg PO DAILY@1800 [facility] Last Admin: 08/12/23 22:45 Dose: 4 mg Home Medications Medication Instructions Recorded Confirmed Last Taken Type multivitamin 1 tab PO DAILY 10/22/20 08/12/23 08/10/23 History acetaminophen 650 mg 1,300 mg PO DAILY 08/05/21 08/12/23 08/10/23 History tablet,extended release omega-3 fatty acids 500 mg capsule 500 mg PO DAILY 08/05/21 08/12/23 08/10/23 History gabapentin 100 mg capsule 100 mg PO BID 09/25/22 08/12/23 08/10/23 History duloxetine 20 mg capsule,delayed 40 mg PO DAILY 10/16/22 08/12/23 08/10/23 History release bupropion HCl 100 mg tablet 200 mg PO DAILY 11/10/22 08/12/23 08/10/23 History bupropion HCl 100 mg tablet 100 mg PO BEDTIME 12/23/22 08/12/23 08/10/23 History cholecalciferol (vitamin D3) 25 50 mcg PO DAILY 12/23/22 08/12/23 08/10/23 History mcg (1,000 unit) tablet (Vitamin D3) gabapentin 300 mg capsule 300 mg PO BEDTIME 12/23/22 08/12/23 08/10/23 History valsartan 40 mg tablet 20 mg PO BEDTIME 12/23/22 08/12/23 08/10/23 History digoxin 250 mcg (0.25 mg) tablet 250 mcg PO MOWEFR 05/14/23 08/12/23 08/10/23 History cetirizine 10 mg tablet 10 mg PO DAILY 06/29/23 08/12/23 08/10/23 History diphenhydramine HCl 25 mg capsule 25 mg PO .COMPLEX PRN Allergy 08/02/23 08/12/23 08/10/23 History (Allergy (diphenhydramine)) Symptoms furosemide 20 mg tablet 20 mg PO QAM 08/12/23 08/12/23 08/10/23 History tamsulosin 0.4 mg capsule (Flomax) 0.8 mg PO BEDTIME 08/12/23 08/12/23 08/10/23 History warfarin 4 mg tablet 2 mg PO TUFR 08/12/23 08/12/23 08/10/23 History warfarin 4 mg tablet 4 mg PO DAILY 08/12/23 08/12/23 08/10/23 History Physical Exam 2 Vital Signs: Vital Signs: Last Vital Signs Temp 97.8 F 08/13/23 08:18 Pulse 107 H 08/13/23 08:18 Resp 20 08/13/23 08:18 BP 111/50 L 08/13/23 08:18 Pulse Ox 96 08/13/23 08:18 O2 Del Method Room Air 08/13/23 08:18 BMI result Body Mass Index 45.4 GENERAL APPEARANCE: Morbidly obese. In no acute distress. NECK: no carotid bruit, + jugular venous distention. SKIN: no suspicious lesions, warm and dry. HEART: no murmurs, irregular rate and rhythm. LUNGS: clear to auscultation bilaterally. ABDOMEN: soft, nontender. EXTREMITIES: Mild edema. PERIPHERAL PULSES: equal. NEUROLOGIC: No gross deficits, AAO X 3 Objective Labs and Meds 08/13/23 05:59 08/13/23 05:59 Lab results: Laboratory Results - last 24 hr 08/12/23 08/12/23 08/12/23 14:35 17:42 20:43 WBC 8.2 RBC 4.28 L Hgb 13.6 L Hct 40.6 L MCV 94.9 MCH 31.8 MCHC 33.5 RDW 12.3 Plt Count 218 D MPV 10.6 Immature Gran % (Auto) 0.4 Neut % (Auto) 72.1 Lymph % (Auto) 18.6 L Dolores % (Auto) 6.1 Eos % (Auto) 2.3 Baso % (Auto) 0.5 Lymph # (Auto) 1.5 Dolores # (Auto) 0.5 Eos # (Auto) 0.2 Baso # (Auto) 0.0 Abs Immat Gran (auto) 0.03 Absolute Neuts (auto) 5.9 Absolute Nucleated RBC 0.000 Nucleated RBC % (auto) 0.0 ESR 16 H PT 23.6 H INR 1.9 H D-Dimer High Sensitivty 217 Sodium 140 Potassium 4.3 Chloride 105 Carbon Dioxide 28 Anion Gap 11 L BUN 10 Creatinine 0.90 Estim Creat Clear Calc 114.2 Estimated GFR > 60 Random Glucose 139 H Calcium 9.0 Magnesium 2.0 Total Bilirubin 0.8 Direct Bilirubin 0.3 AST 21 ALT 18 Alkaline Phosphatase 63 Troponin I High Sens 43.4 H D 45.1 H 46.4 H C-Reactive Protein 0.33 Total Protein 6.6 Albumin 3.8 Lipase 25 Digoxin 0.2 L COVID-19 (JESSICA) Negative COVID-19 Clin Com See Note 08/13/23 05:59 WBC 8.0 RBC 4.08 L Hgb 12.7 L Hct 38.9 L MCV 95.3 MCH 31.1 MCHC 32.6 RDW 12.4 Plt Count 200 MPV 11.2 Immature Gran % (Auto) 0.4 Neut % (Auto) 66.3 Lymph % (Auto) 22.9 Dolores % (Auto) 6.8 Eos % (Auto) 3.0 Baso % (Auto) 0.6 Lymph # (Auto) 1.8 Dolores # (Auto) 0.5 Eos # (Auto) 0.2 Baso # (Auto) 0.1 Abs Immat Gran (auto) 0.03 Absolute Neuts (auto) 5.3 Absolute Nucleated RBC 0.000 Nucleated RBC % (auto) 0.0 ESR PT 24.6 H INR 2.0 H D-Dimer High Sensitivty Sodium 141 Potassium 4.0 Chloride 105 Carbon Dioxide 28 Anion Gap 12 BUN 11 Creatinine 0.94 Estim Creat Clear Calc 109.4 Estimated GFR > 60 Random Glucose 122 H Calcium 8.7 Magnesium Total Bilirubin 0.8 Direct Bilirubin AST 21 ALT 16 Alkaline Phosphatase 58 Troponin I High Sens 40.9 H C-Reactive Protein Total Protein 6.1 L Albumin 3.6 Lipase Digoxin COVID-19 (JESSICA) COVID-19 Clin Com Imaging Radiologist's impression: Impressions Chest X-Ray 08/12/23 14:37 IMPRESSION: No acute cardiopulmonary disease. Assessment and Plan (1) Chest pain, pleuritic: Status: Acute (2) Chronic atrial fibrillation: Status: Acute (3) Cardiomyopathy: Qualifiers: Cardiomyopathy type: unspecified Qualified Code(s): I42.9 - Cardiomyopathy, unspecified Status: Acute Plan 73-year-old gentleman presenting for pleuritic chest discomfort. He felt a pressure-like feeling which was worse with inspiration. EKG is not showing changes of pericarditis. He also does not have a obvious effusion on echocardiography which is somewhat limited due to body habitus 2. He was given colchicine and he has felt better after that. It is possible that he may have mild pericarditis. He is denying any consistent chest discomfort in the past. He does have cardiomyopathy and chronic atrial fibrillation. Previous echocardiography showed EF 30-35% but now he has severely reduced ejection fraction of 10-15%. No recent ischemic evaluation as far as I could check. He is denying shortness of breath. He has mild volume overload. Increase the Lasix to 20 mg p.o. b.i.d.. Add Farxiga. Continue colchicine 0.6 mg daily. Thank you for allowing me to participate in the care of your patient. Please feel free to contact me if you have any questions. Procedures Date of Service Date of Service: 08/13/23
--- NOTE | 2023-08-13 12:32 | HO.PM.IMPN ---
Subjective Subjective Date of Service: 08/13/23 Interval History: f/u on chest pain, pericardial effusion Physical Exam Vital Signs: Vital Signs: Last Vital Signs Temp 97.8 F 08/13/23 08:18 Pulse 107 H 08/13/23 08:18 Resp 20 08/13/23 08:18 BP 111/50 L 08/13/23 08:18 Pulse Ox 96 08/13/23 08:18 O2 Del Method Room Air 08/13/23 08:18 BMI result Body Mass Index 45.4 General: AO X 3, no acute distress Resp: CTA bilateral CVS: S1,S2 ireguliar, trace leg edema GI: +BS, NT, no distention Skin: No rash Neuro: motor grossly intact Psych: appropriate affect Objective Data Active Medications Acetaminophen (Acetaminophen 325 Mg Tablet) 650 mg PO Q6H PRN PRN Reason: Headache Acetaminophen (Acetaminophen 325 Mg Tablet) 650 mg PO DAILY [facility] Last Admin: 08/13/23 08:10 Dose: 650 mg Documented By: NOAH Atorvastatin Calcium (Atorvastatin Calcium 10 Mg Tablet) 10 mg PO BEDTIME [facility] Last Admin: 08/12/23 22:44 Dose: 10 mg Documented By: STAN Bupropion HCl (Bupropion Hcl 100 Mg Tablet) 200 mg PO BEDTIME [facility] Last Admin: 08/12/23 22:44 Dose: 200 mg Documented By: STAN Bupropion HCl (Bupropion Hcl 100 Mg Tablet) 100 mg PO DAILY [facility] Last Admin: 08/13/23 08:09 Dose: 100 mg Documented By: NOAH Carvedilol (Carvedilol 6.25 Mg Tablet) 6.25 mg PO BID [facility]; Protocol Last Admin: 08/12/23 22:58 Dose: 6.25 mg Documented By: STAN Colchicine (Colchicine 0.6 Mg Tablet) 0.6 mg PO DAILY [facility] Digoxin (Digoxin 0.25 Mg Tablet) 0.25 mg PO MoWeFr@0900 [facility] Last Admin: 08/13/23 09:21 Dose: 0.25 mg Documented By: NOAH Diphenhydramine HCl (Diphenhydramine Hcl 25 Mg Capsule) 50 mg PO BEDTIME PRN PRN Reason: Allergy Symptoms Duloxetine HCl (Duloxetine Hcl 20 Mg Capsule.) 40 mg PO DAILY [facility] Last Admin: 08/13/23 08:09 Dose: 40 mg Documented By: NOAH Furosemide (Furosemide 20 Mg Tablet) 20 mg PO DAILY [facility]; Protocol Last Admin: 08/13/23 08:10 Dose: 20 mg Documented By: NOAH Gabapentin (Gabapentin 100 Mg Capsule) 100 mg PO BID [facility] Last Admin: 08/13/23 08:10 Dose: 100 mg Documented By: NOAH Gabapentin (Gabapentin 300 Mg Capsule) 300 mg PO BEDTIME [facility] Last Admin: 08/12/23 22:43 Dose: 300 mg Documented By: STAN Loratadine (Loratadine 10 Mg Tablet) 10 mg PO DAILY [facility] Last Admin: 08/13/23 08:09 Dose: 10 mg Documented By: NOAH Multivitamins/Vitamin C (Multivitamin Tablet) 1 tab PO DAILY [facility] Last Admin: 08/13/23 08:09 Dose: 1 tab Documented By: NOAH Senna/Docusate Sodium (Sennosides/Docusate Sodium Tablet) 2 tab PO BEDTIME [facility] Last Admin: 08/12/23 22:45 Dose: Not Given Documented By: STAN Non-Admin Reason: Patient Refused Sodium Chloride (0.9 % Sodium Chloride Flush 3 Ml Syringe) 3 ml IVFLUSH [facility] Last Admin: 08/13/23 08:10 Dose: 3 ml Documented By: NOAH Tamsulosin HCl (Tamsulosin Hcl 0.4 Mg Capsule) 0.8 mg PO BEDTIME [facility] Last Admin: 08/12/23 22:56 Dose: 0.8 mg Documented By: STAN Tizanidine HCl (Tizanidine Hcl 4 Mg Tablet) 4 mg PO BEDTIME [facility] Last Admin: 08/12/23 22:43 Dose: 4 mg Documented By: STAN Valsartan (Valsartan 40 Mg Tablet) 20 mg PO BEDTIME [facility]; Protocol Last Admin: 08/12/23 22:57 Dose: 20 mg Documented By: STAN Vitamin D (Cholecalciferol (Vitamin D3) 25 Mcg Tablet) 50 mcg PO DAILY [facility] Last Admin: 08/13/23 08:09 Dose: 50 mcg Documented By: NOAH Warfarin Sodium (Warfarin Sodium 2 Mg Tablet) 2 mg PO TuFr@1800 [facility] Last Admin: 08/12/23 22:56 Dose: Not Given Documented By: STAN Non-Admin Reason: Patient Refused Warfarin Sodium (Warfarin Sodium 4 Mg Tablet) 4 mg PO DAILY@1800 [facility] Last Admin: 08/12/23 22:45 Dose: 4 mg Documented By: STAN Labs 08/13/23 05:59 08/13/23 05:59 Labs: Laboratory Results - last 24 hr 08/12/23 08/13/23 14:35 05:59 MCV 94.9 95.3 MCH 31.8 31.1 MCHC 33.5 32.6 RDW 12.3 12.4 Plt Count 218 D 200 MPV 10.6 11.2 Immature Gran % (Auto) 0.4 0.4 Neut % (Auto) 72.1 66.3 Lymph % (Auto) 18.6 L 22.9 Early % (Auto) 6.1 6.8 Eos % (Auto) 2.3 3.0 Baso % (Auto) 0.5 0.6 Lymph # (Auto) 1.5 1.8 Early # (Auto) 0.5 0.5 Eos # (Auto) 0.2 0.2 Baso # (Auto) 0.0 0.1 Abs Immat Gran (auto) 0.03 0.03 Absolute Neuts (auto) 5.9 5.3 Absolute Nucleated RBC 0.000 0.000 Nucleated RBC % (auto) 0.0 0.0 ESR 16 H PT 23.6 H 24.6 H INR 1.9 H 2.0 H D-Dimer High Sensitivty 217 Anion Gap 11 L 12 Estim Creat Clear Calc 114.2 109.4 Estimated GFR > 60 > 60 Random Glucose 139 H 122 H Calcium 9.0 8.7 Magnesium 2.0 Total Bilirubin 0.8 0.8 Direct Bilirubin 0.3 AST 21 21 ALT 18 16 Alkaline Phosphatase 63 58 C-Reactive Protein 0.33 Total Protein 6.6 6.1 L Albumin 3.8 3.6 Lipase 25 Digoxin 0.2 L COVID-19 (JESSICA) Negative COVID-19 Clin Com See Note Assessment and Plan (1) Pericarditis: Status: Acute Plan 73/m with dm, afib, hld, obesity, htn here with chest pain with working diagnosis of pericarditis Chest pain, mild increase in ECho no pericardial effusion, being treated with pericarditis, continue Colchicine Chronic systolic heart failure with mild overload--increase Lasix to 20 bid Atrial fibrillation, rate controlled. Continue warfarin, Coreg and digoxin. Check INR daily. Essential hypertension. Continue valsartan and Coreg. Neuropathy. Continue gabapentin. BPH. Continue tamsulosin. Hyperlipidemia. Continue statin. History of depression. Continue bupropion and Cymbalta. Morbid obesity. BMI 45.4 kg/m2. Weight loss advised Obstructive sleep apnea. Continue nocturnal CPAP. History of diabetes. SSI, [place] upon discharge, DVT prophylaxis: On warfarin. Code status: Full. need for inpt: chest pain work up Quality Stroke Does the patient have a stroke diagnosis?: No VTE Prior VTE?: No VTE Risk Level:: Medical - moderate - high VTE Device Contraindication: Treatment Not Indicated VTE Drug Contraindication: N/A - Med Ordered
[2023-08-13] MEDS: Warfarin Sodium 2 MG TABLET PO (17:42)
[2023-08-13] MEDS: Warfarin Sodium 4 MG TABLET PO (17:42)
[2023-08-13] MEDS: Atorvastatin Calcium 10 MG TABLET PO (20:36)
[2023-08-13] MEDS: TiZANidine HCL 4 MG TABLET PO (20:38)
[2023-08-13] MEDS: Gabapentin 300 MG CAPSULE PO (20:39)
[2023-08-13] MEDS: buPROPion HCL 100 MG TABLET 200 MG PO (20:39)
[2023-08-13] MEDS: Valsartan 40 MG TABLET 20 MG PO (20:41)
[2023-08-13] MEDS: Tamsulosin HCL 0.4 MG CAPSULE 0.8 MG PO (20:42)
[2023-08-14 03:28] VITALS: BP 109/71; PULSE 81; RESP 18; TEMP 36.4; O2SAT 94
[2023-08-14 07:15] LABS: INTERNATIONAL NORM RATIO 2.1 (0.9-1.1); Prothrombin Time 25.6 SEC (11.1-13.3)
[2023-08-14 07:44] VITALS: BP 113/70; PULSE 91; RESP 18; TEMP 36.6; O2SAT 95
[2023-08-14] MEDS: DULoxetine HCl 20 MG CAPSULE.DR 40 MG PO (08:14)
[2023-08-14] MEDS: Cholecalciferol (Vitamin D3) 25 MCG TABLET 50 MCG PO (08:14)
[2023-08-14] MEDS: carvediloL 6.25 MG TABLET PO (08:15)
[2023-08-14] MEDS: buPROPion HCL 100 MG TABLET PO (08:16)
[2023-08-14] MEDS: Gabapentin 100 MG CAPSULE PO (08:16)
[2023-08-14] MEDS: Acetaminophen 325 MG TABLET 650 MG PO (08:20)
[2023-08-14] MEDS: Loratadine 10 MG TABLET PO (08:20)
[2023-08-14] MEDS: Colchicine 0.6 MG TABLET PO (08:21)
[2023-08-14] MEDS: Multivitamin TABLET 1 TAB PO (08:21)
[2023-08-14] MEDS: Furosemide 20 MG TABLET PO (08:21)
[2023-08-14] MEDS: 0.9 % Sodium Chloride Flush 3 ML SYRINGE IVFLUSH (08:25)
--- NOTE | 2023-08-14 09:10 | P.DS_ITS ---
DS: Providers Provider Date of Service: 08/14/23 Date of admission: 08/12/23 20:18 Date of discharge: 08/14/23 Primary care physician: Jaylon Carvajal MD Consults: 08/12/23 19:01 Consult to Cardiology Stat Consulting Provider: [facility] [place] Cardiovascular Services Reason for consultation: chest pain, elevated troponin Has provider been notified: Yes DS: Diagnosis Discharge Diagnosis (1) Pericarditis: Status: Acute DS: Summary Hospital Course Hospital Course: HPI: Misbah Mcknight is a 73 years old man with past medical history significant for chronic atrial fibrillation on warfarin, essential hypertension, COPD, CAD, anxiety, depression, obstructive sleep apnea on CPAP, GERD and diabetes presents to the emergency department complaining with chest pain that started around noon while he was sitting resting. He described the pain as a sharp sensation, intensity 6/10. Pain increases with deep inspiration. He did not report significant shortness of breath, diaphoresis, palpitations or dizziness. He mentioned having intermittent episode of dry cough but he has not been coughing today. He denied any acute gastrointestinal genitourinary symptoms. There is no fever or chills reported. Patient did not report tobacco smoking, alcohol abuse or illicit drug use. In the ED, he was found to have stable vital signs. There is hypertension. His oxygen saturation is normal on room air. Blood workup is remarkable for mild elevated troponin. BNP is normal. Renal and liver function are normal. There is no leukocytosis. CXR is negative. At bedside echocardiogram was done by ED provider was limited due to patient body habitus. It did repair and apical parasternal and subxiphoid without obvious gross wall motion abnormalities. A small pericardial effusion was noted. EKG showed atrial fibrillation, heart rate 80 bpm, IRBBB w/right acid deviation w/o ischemic changes. ED tx: Colchicine 0.6 mg PO. Hospital course: Chest pain improved with colchicine. Was evaluated by Cardiology who thought the chest pain stool to mild pericarditis. He was also found to be mildly volume overloaded and Lasix was increased to 20 mg p.o. b.i.d.. Patient hemodynamically stable and without chest discomfort prior to discharge. Patient will be discharged with a prescription of Farxiga and colchicine. To follow-up cardiology within 1 week after discharge. Medications continued for other chronic medical conditions Status at Discharge Overall status at discharge: patient is back to baseline Time Attestation Discharge coordination time: Less than 30 minutes Quality: Safe Use of Opioids Does Pt have an Active Cancer Diagnosis on the Problem List?: No Quality: Stroke Does the patient have a stroke diagnosis?: No Physical Exam Vital Signs: Vital Signs: Last Vital Signs Temp 97.9 F 08/14/23 07:44 Pulse 91 08/14/23 07:44 Resp 18 08/14/23 07:44 BP 113/70 08/14/23 07:44 Pulse Ox 95 08/14/23 07:44 O2 Del Method Room Air 08/14/23 07:44 BMI result Body Mass Index 45.4 General: AO X 3, no acute distress Resp: CTA bilateral CVS: S1,S2 ireguliar, trace leg edema GI: +BS, NT, no distention Skin: No rash Neuro: motor grossly intact Psych: appropriate affect DS: Data Data Completed and Pending Completed studies during hospitalization [Text1]: Procedures Assistance with Respiratory Ventilation, Less than 24 Consecutive Hours, Continuous Positive Airway Pressure (12/23/22) Labs on day of discharge: Laboratory Results - last 24 hr 08/14/23 05:59 Hold Purple Top SEE NOTE PT 25.6 H INR 2.1 H Imaging Chest x-ray: Radiologist's impression: ITS Impressions Chest X-Ray 08/12/23 14:37 IMPRESSION: No acute cardiopulmonary disease. Discharge Plan Discharge Anticipated Discharge Date/Time: 08/14/23 09:12 Patient Disposition: Home, Self-Care Discharge Diagnosis: Mild pericarditis Referrals: Jaylon Carvajal MD [Primary Care Provider] - 1 Week Discharge Medications: New colchicine [Colcrys] 0.6 mg Tablet 0.6 mg PO DAILY 28 Days Qty: 28 0RF furosemide 20 mg tablet 20 mg PO BID Qty: 60 0RF Continued omega-3 fatty acids 500 mg capsule 500 mg PO DAILY acetaminophen 650 mg tablet extended release 1,300 mg PO DAILY Rx Instructions: TAKES IN AM atorvastatin 10 mg tablet 10 mg PO BEDTIME Qty: 90 3RF tizanidine 4 mg tablet 4 mg PO BEDTIME Qty: 90 3RF sennosides-docusate sodium [Senokot-S] 8.6-50 mg tablet 2 tab-cap PO BEDTIME Qty: 60 0RF carvedilol 6.25 mg tablet 6.25 mg PO BID 90 Days Qty: 180 3RF Protocol: Hold for SBP/HR < HOLD for SBP < : 90 HOLD for HR < : 60 multivitamin Tablet 1 tab PO DAILY bupropion HCl 100 mg tablet 100 mg PO BEDTIME gabapentin 300 mg capsule 300 mg PO BEDTIME valsartan 40 mg tablet 20 mg PO BEDTIME cholecalciferol (vitamin D3) [Vitamin D3] 25 mcg (1,000 unit) Tablet 50 mcg PO DAILY warfarin 4 mg Tablet 2 mg PO warfarin 4 mg tablet 4 mg PO DAILY Protocol: Dose Management Condition: Wednesday (Week One) Dose/Route: 4 mg Instruction: 1 x 4 mg tablet Condition: Wednesday Dose/Route: 6 mg Instruction: 1.5 x 4 mg tablets Condition: Wednesday Dose/Route: 4 mg Instruction: 1 x 4 mg tablet Condition: Wednesday Dose/Route: 4 mg Instruction: 1 x 4 mg tablet Condition: Dose/Route: 6 mg Instruction: 1.5 x 4 mg tablets Condition: Wednesday Dose/Route: 4 mg Instruction: 1 x 4 mg tablet Condition: Wednesday Dose/Route: 4 mg Instruction: 1 x 4 mg tablet Condition: Wednesday (Week Two) Dose/Route: 4 mg Instruction: 1 x 4 mg tablet Condition: Wednesday Dose/Route: 6 mg Instruction: 1.5 x 4 mg tablets Condition: Wednesday Dose/Route: 4 mg Instruction: 1 x 4 mg tablet Condition: Wednesday Dose/Route: 4 mg Instruction: 1 x 4 mg tablet Condition: Dose/Route: 6 mg Instruction: 1.5 x 4 mg tablets Condition: Wednesday Dose/Route: 4 mg Instruction: 1 x 4 mg tablet Condition: Wednesday Dose/Route: 4 mg Instruction: 1 x 4 mg tablet Protocol Text: Adjustment Start Date: Wednesday08/02/23 INR Value: 2.2 INR Date: 08/02/23 Recheck Date: 08/16/23 tamsulosin [Flomax] 0.4 mg capsule 0.8 mg PO BEDTIME gabapentin 100 mg capsule 100 mg PO BID duloxetine 20 mg capsule,delayed release(DR/EC) 40 mg PO DAILY bupropion HCl 100 mg tablet 200 mg PO DAILY digoxin 250 mcg (0.25 mg) tablet 250 mcg PO MOWE Patient Comments: PT STATES HE TAKES IT 3 DAYS / WEEK Rx Instructions: 250 mcg orally MWF; cetirizine 10 mg tablet 10 mg PO DAILY diphenhydramine HCl [Allergy (diphenhydramine)] 25 mg capsule 25 mg PO .COMPLEX PRN (Reason: Allergy Symptoms) Rx Instructions: 25 mg orally 2 TABS AT HS PRN; Discontinued furosemide 20 mg Tablet 20 mg PO QAM Discharge Orders: Discharge Order (Routine); Ordered 08/14/23 Ordered By: Audi Kirkpatrick Diet: Low salt diet Activity on Discharge: As tolerated Stand Alone Forms: Patient Portal Discharge page Care Plan Goals: Follow-up with PCP and Cardiology within 1 week Health Concerns: Congestive heart failure with reduced ejection fraction Mild pericarditis Plan of Treatment: Increase furosemide to 20 mg p.o. b.i.d. Initiate colchicine 0.6 mg daily Assessment: As above
--- NOTE | 2023-08-14 11:08 | PM.PNCARD ---
Subjective Subjective Date of Service: 08/14/23 Interval history: Seen examined at bedside. Feeling good. No chest discomfort. He has walked around and has no discomfort in his chest with activities. EF is low on the echocardiography which was discussed with the patient. Physical Exam Vital Signs: Last Vital Signs Temp 97.9 F 08/14/23 07:44 Pulse 91 08/14/23 07:44 Resp 18 08/14/23 07:44 BP 113/70 08/14/23 07:44 Pulse Ox 95 08/14/23 07:44 O2 Del Method Room Air 08/14/23 07:44 BMI result Body Mass Index 45.4 GENERAL APPEARANCE: Morbidly obese. In no acute distress. NECK: no carotid bruit, + jugular venous distention. SKIN: no suspicious lesions, warm and dry. HEART: no murmurs, irregular rate and rhythm. LUNGS: clear to auscultation bilaterally. ABDOMEN: soft, nontender. EXTREMITIES: Mild edema. PERIPHERAL PULSES: equal. NEUROLOGIC: No gross deficits, AAO X 3 Objective Labs and Meds 08/13/23 05:59 08/13/23 05:59 Lab results: Laboratory Results - last 24 hr 08/14/23 05:59 Hold Purple Top SEE NOTE PT 25.6 H INR 2.1 H Progress Note: A&P Assessment and plan (1) Pericarditis: Status: Acute (2) Chronic atrial fibrillation: Status: Acute (3) Cardiomyopathy: Status: Acute Plan Pleasant 73-year-old gentleman with morbid obesity, persistent atrial fibrillation and cardiomyopathy. His ejection fraction previously was 30-35% but has dropped to 10-15% on repeat echocardiography. He is here for chest discomfort which was pleuritic in nature which improved with colchicine. No obvious effusion noted. He is on colchicine currently and feeling better. We are adding SGLT 2 inhibitor. Overall clinically stable and will be going home today. He will follow-up with Dr. Lewis, we will arrange follow-up. Thank you for allowing me to participate in the care of your patient. Please feel free to contact me if you have any questions. Time Spent With Patient Time: Total time managing care of this patient today ____ minutes. Progress Note: Quality Stroke Does the patient have a stroke diagnosis?: No Procedures Date of Service Date of Service: 08/14/23
--- NOTE | 2023-08-14 12:05 | MHC.CM.PN ---
PT DISCHARGED HOME TODAY [facility] [employer] [facility] ARRANGED. RIDE CONFIRMED COMPLETED AT 1140 HOURS
== END 2023-08-14 11:22 | disposition home or self-care (01) | DRG 315 ==
LOC: HO.ED 18:59 → HO.EDOVER 20:25 → HO.IMC 08-13 14:52
PROVIDERS: Admitting Provider Internal Medicine; Emergency Provider Emergency Medicine; PCP Internal Medicine; Visit Provider Student in an Organized Health Care Education/Training Program
DX: I31.9 Disease of pericardium, unspecified (principal); I42.9 Cardiomyopathy, unspecified; Z68.42 Body mass index [BMI] 45.0-49.9, adult; I50.22 Chronic systolic (congestive) heart failure; I48.19 Other persistent atrial fibrillation; I11.0 Hypertensive heart disease with heart failure; I25.10 Atherosclerotic heart disease of native coronary artery without angina pectoris; G47.33 Obstructive sleep apnea (adult) (pediatric); N40.0 Benign prostatic hyperplasia without lower urinary tract symptoms; E11.40 Type 2 diabetes mellitus with diabetic neuropathy, unspecified; E78.5 Hyperlipidemia, unspecified; F32.A Depression, unspecified; E66.01 Morbid (severe) obesity due to excess calories; Z20.822 Contact with and (suspected) exposure to COVID-19; Z86.711 Personal history of pulmonary embolism; Z79.01 Long term (current) use of anticoagulants; Z79.899 Other long term (current) drug therapy
CPT/HCPCS: 36415; 71045; 80048; 80053; 80076; 80162; 83690; 83735; 84484; 85025; 85379; 85610; 85652; 86140; 87635; 93005; 93306; 94660; 99285; Q9957

== ENCOUNTER → 2023-08-12 14:00 | Outpatient (BNV) | payer OTHER, SELFPAY | PROVIDERS: Emergency Provider Emergency Medicine; PCP Internal Medicine; Visit Provider Internal Medicine Cardiovascular Disease | DX: R94.31 Abnormal electrocardiogram [ECG] [EKG] (principal) | CPT/HCPCS: 93010 ==

== ENCOUNTER 2023-08-12 20:18 | Outpatient (BNV) | payer OTHER, SELFPAY | END 2023-08-13 07:00 | PROVIDERS: Admitting Provider Internal Medicine; Emergency Provider Emergency Medicine; PCP Internal Medicine; Visit Provider Internal Medicine Cardiovascular Disease | DX: I48.20 Chronic atrial fibrillation, unspecified (principal); I42.9 Cardiomyopathy, unspecified | CPT/HCPCS: 93306 ==

== ENCOUNTER → 2023-08-12 20:18 | Outpatient (BNV) | payer OTHER, SELFPAY | PROVIDERS: Admitting Provider Internal Medicine; Emergency Provider Emergency Medicine; PCP Internal Medicine; Visit Provider Internal Medicine Cardiovascular Disease | DX: R07.81 Pleurodynia (principal); I48.20 Chronic atrial fibrillation, unspecified; I42.9 Cardiomyopathy, unspecified | CPT/HCPCS: 99222; 99232 ==

== ENCOUNTER → 2023-08-12 20:18 | Outpatient (BNV) | payer OTHER, SELFPAY | PROVIDERS: Admitting Provider Internal Medicine; Emergency Provider Emergency Medicine; PCP Internal Medicine; Visit Provider Internal Medicine | DX: R07.81 Pleurodynia (principal); R79.89 Other specified abnormal findings of blood chemistry; I31.9 Disease of pericardium, unspecified | CPT/HCPCS: 99223; 99238; 99499 ==

== ENCOUNTER 2023-08-17 13:02 | Outpatient (AMB) | payer OTHER, SELFPAY ==
[2023-08-17 13:13] LABS: Prothrombin Time Whole Bld POC 24.9 sec (11.1-13.5); ~PT, ~INR - Anti Coag Clinic 2.1 (0.9-1.1)
--- NOTE | 2023-08-17 13:27 | MHC.OFFVISCO ---
Intake Intake Visit Reasons: Anticoagulation Allergies iodine [IODINE] Allergy (Intermediate, Verified 08/17/23 13:08) HIVES, bloating latex [LATEX] Allergy (Intermediate, Verified 08/17/23 13:08) HIVES shellfish derived [SHELLFISH DERIVED] Allergy (Intermediate, Verified 08/17/23 13:08) ANAPHYLAXIS Medication List - Last Reconciled 08/17/23 by Brittany German, JESUS acetaminophen ER 1,300 mg PO DAILY atorvastatin 10 mg PO BEDTIME bupropion HCl 100 mg PO BEDTIME bupropion HCl 200 mg PO DAILY carvedilol 6.25 mg See Protocol PO BID 90 days cetirizine 10 mg PO DAILY cholecalciferol (vitamin D3) (Vitamin D3) 50 mcg PO DAILY colchicine (Colcrys) 0.6 mg PO DAILY 28 days dapagliflozin propanediol (Farxiga) 5 mg PO DAILY digoxin 250 mcg PO MOWEFR diphenhydramine HCl (Allergy (diphenhydramine)) 25 mg orally 2 TABS AT HS PRN; duloxetine 40 mg PO DAILY furosemide 20 mg PO BID gabapentin 300 mg PO BEDTIME gabapentin 100 mg PO BID multivitamin 1 tab PO DAILY omega-3 fatty acids 500 mg PO DAILY sennosides-docusate sodium 8.6-50 mg (Senokot-S) 2 tab-caps (2 x 8.6-50 mg) PO BEDTIME tamsulosin (Flomax) 0.8 mg PO BEDTIME tizanidine 4 mg PO BEDTIME valsartan 20 mg PO BEDTIME warfarin 2 mg PO TUFR warfarin 4 mg See Protocol PO DAILY Nursing Note INR: 2.1 in therapeutic range Medications and supplements reviewed Recent hospitalization for CHF. Lasix increased, farxiga added for CHF and colchicine added for mild pericarditis. No changes in diet. Denies any signs and symptoms of bleeding or bruising or clotting. Bleeding, bruising, clotting discussed Nutritional guidance given Dose: Continue same dosing of 6mg X2d/4mg X5d. F/U 2 weeks. Patient verbalizes understanding of instructions given Anti-Coag Initial Assessment Social Hx Patient Tobacco Use Status: Former Tobacco user Quit Date: 1998 alcohol intake: never Coding Level of Care Code Est Patient Level 1 Diagnoses Current use of anticoagulant therapy Z79.01 Assessment & Plan Assessment & Plan (1) Current use of anticoagulant therapy: Code(s): Z79.01 - penitentiary (current) use of anticoagulants Category: Medical
== END 2023-08-17 13:36 | disposition home or self-care (01) ==
LOC: HO.ACS 13:02
PROVIDERS: PCP Internal Medicine; Visit Provider Internal Medicine
DX: Z79.01 Long term (current) use of anticoagulants (principal)

== ENCOUNTER → 2023-08-17 13:02 | Outpatient (BNVA) | payer OTHER, SELFPAY | PROVIDERS: PCP Internal Medicine; Visit Provider Internal Medicine | DX: I26.99 Other pulmonary embolism without acute cor pulmonale (principal); Z79.01 Long term (current) use of anticoagulants; Z51.81 Encounter for therapeutic drug level monitoring | CPT/HCPCS: 85610; 99211 ==

== ENCOUNTER 2023-09-01 10:12 | Outpatient (REF) | payer OTHER, SELFPAY ==
[2023-09-01 11:13] LABS: Anion Gap 10 (12-20); Blood Urea Nitrogen 9 mg/dL (9-16); Calcium 8.9 mg/dL (8.4-10.2); Carbon Dioxide 31 mmol/L (22-29); Chloride 104 mmol/L (96-108); Estimated Glomerular Filt Rate > 60; Glucose Random 174 mg/dL (60-115); Potassium 4.1 mmol/L (3.3-5.1); Sodium 141 mmol/L (135-145)
[2023-09-01 11:16] LABS: Digoxin 1.2 ng/mL (0.8-2.0)
== END 2023-09-01 10:13 | disposition home or self-care (01) ==
LOC: HO.LAB 10:12
PROVIDERS: Visit Provider Internal Medicine Cardiovascular Disease
DX: I48.20 Chronic atrial fibrillation, unspecified (principal); I26.99 Other pulmonary embolism without acute cor pulmonale; Z51.81 Encounter for therapeutic drug level monitoring; Z79.01 Long term (current) use of anticoagulants
CPT/HCPCS: 36415; 80048; 80162; 85610; 99211

== ENCOUNTER 2023-09-01 10:15 | Outpatient (AMB) | payer OTHER, SELFPAY ==
[2023-09-01 10:33] LABS: Prothrombin Time Whole Bld POC 28.7 sec (11.1-13.5); ~PT, ~INR - Anti Coag Clinic 2.4 (0.9-1.1)
--- NOTE | 2023-09-01 10:34 | MHC.OFFVISCO ---
Intake Intake Visit Reasons: Anticoagulation Allergies iodine [IODINE] Allergy (Intermediate, Verified 09/01/23 10:26) HIVES, bloating latex [LATEX] Allergy (Intermediate, Verified 09/01/23 10:26) HIVES shellfish derived [SHELLFISH DERIVED] Allergy (Intermediate, Verified 09/01/23 10:26) ANAPHYLAXIS Medication List - Last Reconciled 09/01/23 by Brittany German, JESUS acetaminophen ER 1,300 mg PO DAILY atorvastatin 10 mg PO BEDTIME bupropion HCl 100 mg PO BEDTIME bupropion HCl 200 mg PO DAILY carvedilol 6.25 mg See Protocol PO BID 90 days cetirizine 10 mg PO DAILY cholecalciferol (vitamin D3) (Vitamin D3) 50 mcg PO DAILY colchicine (Colcrys) 0.6 mg PO DAILY 90 days dapagliflozin propanediol (Farxiga) 5 mg PO DAILY 90 days digoxin 250 mcg PO MOWEFR diphenhydramine HCl (Allergy (diphenhydramine)) 25 mg orally 2 TABS AT HS PRN; duloxetine 40 mg PO DAILY furosemide 20 mg PO BID gabapentin 300 mg PO BEDTIME gabapentin 100 mg PO BID multivitamin 1 tab PO DAILY omega-3 fatty acids 500 mg PO DAILY sennosides-docusate sodium 8.6-50 mg (Senokot-S) 2 tab-caps (2 x 8.6-50 mg) PO BEDTIME tamsulosin (Flomax) 0.8 mg PO BEDTIME tizanidine 4 mg PO BEDTIME valsartan 20 mg PO BEDTIME warfarin 2 mg See Protocol PO TUFR warfarin 4 mg See Protocol PO DAILY Nursing Note INR: 2.4 in therapeutic range Medications and supplements reviewed No changes in health, diet, medications, or supplements, Denies any signs and symptoms of bleeding or bruising or clotting. 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
== END 2023-09-01 10:39 | disposition home or self-care (01) ==
LOC: HO.ACS 10:15
PROVIDERS: PCP Internal Medicine; Visit Provider Internal Medicine
DX: Z79.01 Long term (current) use of anticoagulants (principal)

== ENCOUNTER 2023-09-22 10:41 | Outpatient (AMB) | payer OTHER, SELFPAY ==
[2023-09-22 10:50] LABS: ~PT, ~INR - Anti Coag Clinic 4.2 (0.9-1.1)
--- NOTE | 2023-09-22 11:02 | MHC.OFFVISCO ---
Intake Intake Visit Reasons: Anticoagulation Allergies iodine [IODINE] Allergy (Intermediate, Verified 09/22/23 10:45) HIVES, bloating latex [LATEX] Allergy (Intermediate, Verified 09/22/23 10:45) HIVES shellfish derived [SHELLFISH DERIVED] Allergy (Intermediate, Verified 09/22/23 10:45) ANAPHYLAXIS Nursing Note PT.STATES THAT HE HAS HAD SIGNIFICANT INCREASE IN STRESS THIS WEEK. HE ALSO STATES THAT HE HAS HAD SOME LIGHTHEADEDNESS WHEN STANDING TODAY, BUT IS OK WITH AMBULATION. NO CP,SOB OR SX OF BLEEDING. PT.DENIES NEED FOR ER EVAL.BUT AGREES TO GO IF ANY FURTHER SX ARISE. HOLD WARFARIN TODAY AND DECREASE DOSE TO 4MGM TOMORROW AND FOLLOW-UP IN 1 WEEK. GREENS(PEACHES)TODAY. GOOD UNDERSTANDING OF INSTR. VERB. 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
== END 2023-09-22 11:06 | disposition home or self-care (01) ==
LOC: HO.ACS 10:41
PROVIDERS: PCP Internal Medicine; Visit Provider Internal Medicine
DX: Z79.01 Long term (current) use of anticoagulants (principal)

== ENCOUNTER → 2023-09-22 10:41 | Outpatient (BNVA) | payer OTHER, SELFPAY | PROVIDERS: PCP Internal Medicine; Visit Provider Internal Medicine | DX: I26.99 Other pulmonary embolism without acute cor pulmonale (principal); Z79.01 Long term (current) use of anticoagulants; Z51.81 Encounter for therapeutic drug level monitoring | CPT/HCPCS: 85610; 99211 ==

== ENCOUNTER 2023-09-29 10:40 | Outpatient (AMB) | payer OTHER, SELFPAY ==
--- NOTE | 2023-09-29 11:04 | MHC.OFFVISCO ---
Intake Intake Visit Reasons: Anticoagulation Allergies iodine [IODINE] Allergy (Intermediate, Verified 09/29/23 10:56) HIVES, bloating latex [LATEX] Allergy (Intermediate, Verified 09/29/23 10:56) HIVES shellfish derived [SHELLFISH DERIVED] Allergy (Intermediate, Verified 09/29/23 10:56) ANAPHYLAXIS Medication List - Last Reconciled 09/29/23 by Flores Penaloza RN acetaminophen ER 1,300 mg PO DAILY atorvastatin 10 mg PO BEDTIME bupropion HCl 100 mg PO BEDTIME bupropion HCl 200 mg PO DAILY carvedilol 6.25 mg See Protocol PO BID 90 days cetirizine 10 mg PO DAILY cholecalciferol (vitamin D3) (Vitamin D3) 50 mcg PO DAILY colchicine (Colcrys) 0.6 mg PO DAILY 90 days dapagliflozin propanediol (Farxiga) 5 mg PO DAILY 90 days digoxin 250 mcg PO .4 xs per week diphenhydramine HCl (Allergy (diphenhydramine)) 25 mg orally 2 TABS AT HS PRN; duloxetine 40 mg PO DAILY furosemide 20 mg PO BID gabapentin 300 mg PO BEDTIME gabapentin 100 mg PO BID multivitamin 1 tab PO DAILY omega-3 fatty acids 500 mg PO DAILY sennosides-docusate sodium 8.6-50 mg (Senokot-S) 2 tab-caps (2 x 8.6-50 mg) PO BEDTIME tamsulosin (Flomax) 0.8 mg (2 x 0.4 mg) PO BEDTIME tizanidine 4 mg PO BEDTIME valsartan 20 mg PO BEDTIME warfarin 2 mg See Protocol PO TUFR warfarin 4 mg See Protocol PO DAILY Nursing Note INR: 2.6- in therapeutic range of 2-3 Medications and supplements reviewed- no changes No changes in health, diet, medications, or supplements, Denies any signs and symptoms of bleeding or bruising or clotting. Bleeding, bruising, clotting discussed Nutritional guidance given - food list reviewed. include greens in diet Dose: reduce weekly dosing 6mg x 1. 4mg x 6 F/U INR: 2 weeks Patient verbalizes understanding of instructions given pt with decreased appetite with 40 -45 lbs weight loss Anti-Coag Initial Assessment Social Hx Patient Tobacco Use Status: Former Tobacco user Quit Date: 1998 alcohol intake: never Coding Level of Care Code Est Patient Level 1 Diagnoses Current use of anticoagulant therapy Z79.01 Assessment & Plan Assessment & Plan (1) Current use of anticoagulant therapy: Code(s): Z79.01 - prison (current) use of anticoagulants Category: Medical
[2023-09-29 11:05] LABS: ~PT, ~INR - Anti Coag Clinic 2.6 (0.9-1.1)
== END 2023-09-29 11:14 | disposition home or self-care (01) ==
LOC: HO.ACS 10:40
PROVIDERS: PCP Internal Medicine; Visit Provider Internal Medicine
DX: Z79.01 Long term (current) use of anticoagulants (principal)

== ENCOUNTER → 2023-09-29 10:40 | Outpatient (BNVA) | payer OTHER, SELFPAY | PROVIDERS: PCP Internal Medicine; Visit Provider Internal Medicine | DX: I26.99 Other pulmonary embolism without acute cor pulmonale (principal); Z79.01 Long term (current) use of anticoagulants; Z51.81 Encounter for therapeutic drug level monitoring | CPT/HCPCS: 85610; 99211 ==

== ENCOUNTER 2023-10-13 10:36 | Outpatient (AMB) | payer OTHER, SELFPAY ==
[2023-10-13 10:51] LABS: Prothrombin Time Whole Bld POC 41.5 sec (11.1-13.5); ~PT, ~INR - Anti Coag Clinic 3.5 (0.9-1.1)
--- NOTE | 2023-10-13 11:02 | MHC.OFFVISCO ---
Intake Intake Visit Reasons: Anticoagulation Allergies iodine [IODINE] Allergy (Intermediate, Verified 10/13/23 10:46) HIVES, bloating latex [LATEX] Allergy (Intermediate, Verified 10/13/23 10:46) HIVES shellfish derived [SHELLFISH DERIVED] Allergy (Intermediate, Verified 10/13/23 10:46) ANAPHYLAXIS Medication List - Last Reconciled 10/13/23 by Quynh Cervantes RN acetaminophen ER 1,300 mg PO DAILY atorvastatin 10 mg PO BEDTIME bupropion HCl 100 mg PO BEDTIME bupropion HCl 200 mg PO DAILY carvedilol 6.25 mg See Protocol PO BID 90 days cetirizine 10 mg PO DAILY cholecalciferol (vitamin D3) (Vitamin D3) 50 mcg PO DAILY colchicine (Colcrys) 0.6 mg PO DAILY 90 days dapagliflozin propanediol (Farxiga) 5 mg PO DAILY 90 days digoxin 250 mcg PO .4 xs per week diphenhydramine HCl (Allergy (diphenhydramine)) 25 mg orally 2 TABS AT HS PRN; duloxetine 40 mg PO DAILY furosemide 20 mg PO BID gabapentin 300 mg PO BEDTIME gabapentin 100 mg PO BID multivitamin 1 tab PO DAILY omega-3 fatty acids 500 mg PO DAILY sennosides-docusate sodium 8.6-50 mg (Senokot-S) 2 tab-caps (2 x 8.6-50 mg) PO BEDTIME tamsulosin (Flomax) 0.8 mg (2 x 0.4 mg) PO BEDTIME tizanidine 4 mg PO BEDTIME valsartan 20 mg PO BEDTIME warfarin 2 mg See Protocol PO TUFR warfarin 4 mg See Protocol PO DAILY Nursing Note PT.STATES THAT HE AGAIN HAS LIGHTHEADEDNESS TODAY. DENITA STATES THAT HE WENT TO BED AT 4AM AND AROSE AT 9, AND HAS NOT EATEN YET TODAY. HE DENIES ANY CP,SOB OR SX OF BLEEDING. PT.REFUSES NEED FOR ER EVAL.STATING THAT HE WILL GO ONLY IF HE FEELS IT IS NEC. HOLD WARFARIN TODAY THEN RESUME USUAL DOSE AND FOLLOW-UP IN 2 WEEKS. GREENS 2-3X WEEKLY GOOD UNDERSTANDING OF DOSING INSTR. D/C WITH W/C ASSIST. 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
== END 2023-10-13 11:28 | disposition home or self-care (01) ==
LOC: HO.ACS 10:36
PROVIDERS: PCP Internal Medicine; Visit Provider Internal Medicine
DX: Z79.01 Long term (current) use of anticoagulants (principal)

== ENCOUNTER → 2023-10-13 10:36 | Outpatient (BNVA) | payer OTHER, SELFPAY | PROVIDERS: PCP Internal Medicine; Visit Provider Internal Medicine | DX: I26.99 Other pulmonary embolism without acute cor pulmonale (principal); Z79.01 Long term (current) use of anticoagulants; Z51.81 Encounter for therapeutic drug level monitoring | CPT/HCPCS: 85610; 99211 ==

== ENCOUNTER 2023-10-15 10:17 | Outpatient (AMB) | payer OTHER, SELFPAY ==
--- NOTE | 2023-10-15 10:23 | A.OFFVIS_ITS ---
Intake Vital Signs 10/15/23 10:27 Height 6 ft Weight 330 lb 11.094 oz BMI 44.8 BP 86/60 L Blood Pressure Location Lt brachial Position Sitting Intake Visit Reasons: 6 mth f/up Intake Note: 6 month follow up Dimension Specification Inspector Required: No Accompanied by: Employee Allergies iodine [IODINE] Allergy (Intermediate, Verified 10/15/23 10:24) HIVES, bloating latex [LATEX] Allergy (Intermediate, Verified 10/15/23 10:24) HIVES shellfish derived [SHELLFISH DERIVED] Allergy (Intermediate, Verified 10/15/23 10:24) ANAPHYLAXIS Medication List - Last Reconciled 10/15/23 by Khris Lewis MD acetaminophen ER 1,300 mg PO DAILY atorvastatin 10 mg PO BEDTIME bupropion HCl 100 mg PO BEDTIME bupropion HCl 200 mg PO DAILY carvedilol 6.25 mg See Protocol PO BID 90 days cetirizine 10 mg PO DAILY cholecalciferol (vitamin D3) (Vitamin D3) 50 mcg PO DAILY colchicine (Colcrys) 0.6 mg PO DAILY 90 days dapagliflozin propanediol (Farxiga) 5 mg PO DAILY 90 days digoxin 250 mcg PO .4 xs per week diphenhydramine HCl (Allergy (diphenhydramine)) 25 mg orally 2 TABS AT HS PRN; duloxetine 40 mg PO DAILY furosemide 20 mg PO BID gabapentin 300 mg PO BEDTIME gabapentin 100 mg PO BID multivitamin 1 tab PO DAILY omega-3 fatty acids 500 mg PO DAILY sennosides-docusate sodium 8.6-50 mg (Senokot-S) 2 tab-caps (2 x 8.6-50 mg) PO BEDTIME tamsulosin (Flomax) 0.8 mg (2 x 0.4 mg) PO BEDTIME tizanidine 4 mg PO BEDTIME valsartan 20 mg PO BEDTIME warfarin 2 mg See Protocol PO TUFR warfarin 4 mg See Protocol PO DAILY HPI HPI Comments History of Present Illness Details Kris comes for follow-up. He complains of lightheadedness. He is also says that lightheadedness when he stands up suddenly. He had syncopal episode sometime back. He said this started since he was started on Farxiga, as notice low blood pressure 90s. Never the blood pressure is over systolic 100. He denies worsening shortness of breath. Says overall lost about 35 lb. No orthopnea, PND, leg edema. No prolonged irregular heartbeat or palpitations. No abdominal distension, leg edema. [facility] Medical History (Updated 10/15/23 @ 11:26 by Khris Lewis MD) Heart failure with reduced ejection fraction Chest pain, pleuritic Back pain Dyspnea NOEMI on CPAP COPD (chronic obstructive pulmonary disease) CAD (coronary artery disease) HLD (hyperlipidemia) HTN (hypertension) Diabetes Obstructive sleep apnea Morbid obesity Cardiomyopathy Persistent atrial fibrillation Current use of anticoagulant therapy Surgical History History of knee surgery History of ankle surgery Family History Father HTN (hypertension) Diabetes mellitus Cardiac disease Bone cancer Substance use disorder Mother HTN (hypertension) Lung cancer Social History Household Members: None Housing: Apartment Do you presently have visiting nurse or other home services: Yes ([employer]) Alcohol intake: never Comment: pt refusing bed alarm and red socks Patient Tobacco Use Status: Former Tobacco user Quit Date: 1998 Years Smoked: 30 yrs e-Cigarette/Vaping Use: Never Used Second Hand Smoke Exposure: No service: No Current occupational status: retired and disabled Cognitive needs: No Hearing needs: No Vision needs: Yes Review of Systems Const Denies weakness ENT Denies dizziness Card Denies chest pain, Denies chest pain with activity, Denies syncope, Denies rapid heart rate, Denies pedal edema, Denies edema, Denies leg edema, Reports lightheadedness, Denies palpitations, Reports dyspnea, Denies dyspnea on exertion and Denies orthopnea Resp Denies cough, Reports dyspnea and Denies dyspnea on exertion GI Denies hematochezia and Denies change in stool character Musc Denies abnormal gait, Denies muscle cramps, Denies muscle weakness, Denies numbness, Denies radiating pain into limb and Denies tingling Neuro Denies abnormal gait, Denies dizziness, Denies syncope, Denies numbness, Denies tingling and Denies weakness Endo Denies palpitations Physical Exam Vital Signs: Last Vital Signs BP 86/60 L 10/15/23 10:27 BMI result Body Mass Index 44.8 Const General: cooperative, comfortable, no acute distress, alert and awake Nutritional Appearance: obese morbidly obese Orientation/consciousness: patient oriented x3 Limitations: no limitations Neck Neck: Yes trachea midline, Yes supple and Yes no JVD Resp Effort & Inspection: normal respiratory effort Auscultation: no rales, no wheezes and diminished lung sounds Cardio Jugular venous distension: no JVD Rate: bradycardic Rhythm: abnormal rhythm irregularly irregular Heart sounds: S1 normal heart sound present and S2 normal heart sound present GI Auscultation: normal bowel sounds Skin General skin exam: no rashes or lesions noted Neuro General: patient oriented x3 and no focal motor deficits Extrem General: No clubbing, No cyanosis and Yes edema ( +two edema) Psych Appearance: grossly normal Assessment & Plan Assessment & Plan (1) Heart failure with reduced ejection fraction: Code(s): I50.20 - Unspecified systolic (congestive) heart failure Plan: Heart failure with reduced ejection fraction with significantly reduced LV ejection fraction 10-15%. Clinically today appears to be euvolemic and well compensated may be over diuresed. Given his symptoms lightheadedness, see below will hold off on 4 seizure therapy. Advised to monitor blood pressure at home. Continue carvedilol as well as low-dose valsartan therapy. Continue current diuretic regimen Lasix. Daily weight monitoring avoidance of salt loading was discussed. Advised to avoid significant water intake as well and limited up to 60 oz a day for now. Signs and symptoms of heart failure were discussed. Given his advanced cardiomyopathy and limited tolerance to neurohormonal modulation as well as chronic atrial fibrillation morbid obesity prognosis is guarded. (2) Chronic atrial fibrillation: Code(s): I48.20 - Chronic atrial fibrillation, unspecified Plan: Chronic atrial fibrillation which appears to be rate control on current carvedilol and digoxin therapy. Continue the same. Advised to obtain digoxin assay in near future. Also obtain basic metabolic profile. Currently on full oral anticoagulation with warfarin. Target INR between 2 and 3. Has failed rhythm control approach and given his significant left atrial enlargement unlikely will be able to achieve normal sinus rhythm and him. (3) Low blood pressure: Code(s): I95.9 - Hypotension, unspecified Plan: Low blood pressure probably due to over diuresis as well as advancing cardiomyopathy with poor neurohormonal tolerance. Will discontinue for seizure for now. Advised to monitor blood pressure at home and call me next week. If he remains lightheaded and has low blood pressure will have to discontinue valsartan therapy. Orthostatic precautions were discussed. Follow up in the clinic in 3 months time, sooner p.r.n.. Orders: Orders Digoxin Today I48.20 - Chronic atrial fibrillation, unspecified Basic Metabolic Panel Today I48.20 - Chronic atrial fibrillation, unspecified Medications: Refilled furosemide 20 mg PO BID 90 tabs 5RF Discontinued 2 dapagliflozin propanediol (Farxiga) Discontinued Reason: Doctor's Order 5 mg PO DAILY 90 days 90 tabs 3RF Coding Level of Care Code Est Pt Level 4 (27830) Diagnoses Heart failure with reduced ejection fraction I50.20 Chronic atrial fibrillation I48.20 Low blood pressure I95.9
[2023-10-15 10:27] VITALS: BP 86/60; BMI 44.8
== END 2023-10-15 10:41 | disposition home or self-care (01) ==
PROVIDERS: PCP Internal Medicine; Visit Provider Internal Medicine Cardiovascular Disease
DX: I50.20 Unspecified systolic (congestive) heart failure (principal); I48.20 Chronic atrial fibrillation, unspecified; I95.9 Hypotension, unspecified
CPT/HCPCS: 99214

== ENCOUNTER → 2023-10-15 10:17 | Outpatient (BNVA) | payer OTHER, SELFPAY | PROVIDERS: PCP Internal Medicine; Visit Provider Internal Medicine Cardiovascular Disease | DX: I95.9 Hypotension, unspecified (principal); I50.20 Unspecified systolic (congestive) heart failure; I48.20 Chronic atrial fibrillation, unspecified; R06.02 Shortness of breath; Z79.899 Other long term (current) drug therapy | CPT/HCPCS: 99212 ==

== ENCOUNTER 2023-10-26 13:46 | Outpatient (AMB) | payer OTHER, SELFPAY ==
[2023-10-26 13:49] VITALS: BP 122/72; PULSE 68; O2SAT 96; BMI 45.3
--- NOTE | 2023-10-26 13:49 | MHC.PC.OV ---
Vital Signs 10/26/23 13:49 Height 6 ft Weight 334 lb 4 oz BMI 45.3 BP 122/72 Blood Pressure Location Rt brachial Position Sitting Pulse 68 Pulse Source Pulse Oximeter Pulse Oximetry (%) 96 Oxygen Delivery Method Room Air Intake Visit Reasons: R/S 10/11 Late Allergies iodine [IODINE] Allergy (Intermediate, Verified 10/26/23 13:49) HIVES, bloating latex [LATEX] Allergy (Intermediate, Verified 10/26/23 13:49) HIVES shellfish derived [SHELLFISH DERIVED] Allergy (Intermediate, Verified 10/26/23 13:49) ANAPHYLAXIS Medication List - Last Reconciled 10/26/23 by Jaylon Carvajal MD acetaminophen ER 1,300 mg PO DAILY atorvastatin 10 mg PO BEDTIME bupropion HCl 100 mg PO BEDTIME bupropion HCl 200 mg PO DAILY carvedilol 6.25 mg See Protocol PO BID 90 days cetirizine 10 mg PO DAILY cholecalciferol (vitamin D3) (Vitamin D3) 50 mcg PO DAILY colchicine (Colcrys) 0.6 mg PO DAILY 90 days dapagliflozin propanediol (Farxiga) 5 mg PO DAILY digoxin 250 mcg PO 3XW 90 days diphenhydramine HCl (Allergy (diphenhydramine)) 25 mg orally 2 TABS AT HS PRN; duloxetine 40 mg PO DAILY furosemide 20 mg PO BID gabapentin 300 mg PO BEDTIME gabapentin 100 mg PO BID multivitamin 1 tab PO DAILY omega-3 fatty acids 500 mg PO DAILY sennosides-docusate sodium 8.6-50 mg (Senokot-S) 2 tab-caps (2 x 8.6-50 mg) PO BEDTIME tamsulosin (Flomax) 0.8 mg (2 x 0.4 mg) PO BEDTIME tizanidine 4 mg PO BEDTIME valsartan 20 mg PO BEDTIME warfarin 2 mg See Protocol PO TUFR warfarin 4 mg See Protocol PO DAILY Tobacco use date assessed: 10/26/23 Fall risk assessment: 2 + Falls in past year Last assessed Fall Risk: 10/26/23 Dental Screening Dental Screen Date: 06/03/23 HPI R/S 10/11 Late HPI Details Patient is 73-year-old gentleman with a history of atrial fibrillation on warfarin, hypertension, COPD, coronary artery disease, anxiety and depression, obstructive sleep apnea on CPAP, GERD, diabetes Date of admission 08/12/2023 date of discharge 08/14/2023 Presented to emergency room in July with chief complaint of chest pain pleuritic in nature His oxygen saturation was normal on room air Blood workup was remarkable for mild elevated troponin with normal BNP. Renal and liver functions normal, mild leukocytosis Chest x-ray negative Bedside echo showed small pericardial effusion EKG showed atrial fibrillation with heart rate of 80 beats per minute Patient was started on colchicine in emergency room His chest pain improved with colchicine Cardiology diagnosed him with pericarditis He was prescribed Lasix 20 mg b.i.d. for mildly volume overload. Patient was chest pain-free before discharge He was discharged with a prescription of Farxiga and colchicine Patient has been feeling dizzy since he has started faexiga, stopping that to see if he is dizziness gets better His blood pressure is running low as well, currently he is taking valsartan 20 mg I have changed it to losartan 25 mg half a tablet daily He is now working with Ashia Beebe, who used to work in psychiatric [employer] She is taking care of his medications and his appointments. Patient will return in 3 months labs to be done before visit Medication list reviewed [facility] Medical History Heart failure with reduced ejection fraction Chest pain, pleuritic Back pain Dyspnea NOEMI on CPAP COPD (chronic obstructive pulmonary disease) CAD (coronary artery disease) HLD (hyperlipidemia) HTN (hypertension) Diabetes Obstructive sleep apnea Morbid obesity Cardiomyopathy Persistent atrial fibrillation Current use of anticoagulant therapy Surgical History History of knee surgery History of ankle surgery Family History Father HTN (hypertension) Diabetes mellitus Cardiac disease Bone cancer Substance use disorder Mother HTN (hypertension) Lung cancer Social History Household Members: None Housing: Apartment Do you presently have visiting nurse or other home services: Yes ([employer]) Alcohol intake: never Comment: pt refusing bed alarm and red socks Patient Tobacco Use Status: Former Tobacco user Quit Date: 1998 Years Smoked: 30 yrs e-Cigarette/Vaping Use: Never Used Second Hand Smoke Exposure: No service: No Current occupational status: retired and disabled Cognitive needs: No Hearing needs: No Vision needs: Yes Questionnaire Thrive Questionnaire Date Thrive assessed: 08/13/23 VIRGILIO-7 AMB Questionnaire VIRGILIO-7 Date VIRGILIO - 7 assessed: 11/10/22 Source: Developed by Drs. Momo Barboza, Sue De Leon, Cameron De Jesus and colleagues, with an educational nancy from [employer]. Review of Systems Const Denies chills and Denies fever(s) ENT Denies epistaxis and Denies nasal discharge Card Denies chest pain Resp Denies chest congestion, Denies cough and Denies hemoptysis GI Denies diarrhea and Denies nausea Skin/Breast Denies rash Neuro Reports no additional complaints Psych Reports no additional complaints Endo Reports no additional complaints Physical exam (Primary Care) Vital Signs: Last Vital Signs Pulse 68 10/26/23 13:49 BP 122/72 10/26/23 13:49 Pulse Ox 96 10/26/23 13:49 Oxygen Delivery Method Room Air 10/26/23 13:49 BMI result Body Mass Index 45.3 Tobacco/Smoking Status: Tobacco use Status Tobacco use date assessed 10/26/23 10/26/23 13:52 Patient Tobacco Use Status Former Tobacco user 10/26/23 13:52 e-Cigarette/Vaping Use Never Used 10/26/23 13:52 Thrive Assessment: Date of Thrive Assessment Date Thrive assessed 08/13/23 10/26/23 13:52 Const General: cooperative, comfortable and no acute distress Orientation/consciousness: patient oriented x3 HENMT Head: Yes normocephalic Eyes General: appearance normal, both eyes and all related structures Neck Neck: Yes supple Resp Effort & Inspection: normal respiratory effort, no cough and no stridor Cardio Heart sounds: S1 normal heart sound present and S2 normal heart sound present Skin General skin exam: turgor normal Neuro General: patient oriented x3, tone normal and moves all extremities Assessment and Plan Assessment & Plan (1) Hospital discharge follow-up: Code(s): Z09 - Encounter for follow-up examination after completed treatment for conditions other than malignant neoplasm (2) Current use of anticoagulant therapy: Code(s): Z79.01 - 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 (3) Chronic pulmonary embolism: Code(s): I27.82 - Chronic pulmonary embolism Qualifiers: Acute cor pulmonale presence: without acute cor pulmonale Pulmonary embolism type: other Qualified Code(s): I27.82 - Chronic pulmonary embolism (4) Cardiomyopathy: Code(s): I42.9 - Cardiomyopathy, unspecified Qualifiers: Cardiomyopathy type: unspecified Qualified Code(s): I42.9 - Cardiomyopathy, unspecified (5) CAD (coronary artery disease): Code(s): I25.10 - Atherosclerotic heart disease of [place] coronary artery without angina pectoris Qualifiers: Associated angina: without angina Coronary Disease-Associated Artery/Lesion type: [place] artery [place] vs. transplanted heart: [place] heart Qualified Code(s): I25.10 - Atherosclerotic heart disease of [place] coronary artery without angina pectoris (6) COPD (chronic obstructive pulmonary disease): Comment: No definitive evidence of COPD on recent PFTs Code(s): J44.9 - Chronic obstructive pulmonary disease, unspecified (7) Chronic GERD: Code(s): K21.9 - Gastro-esophageal reflux disease without esophagitis (8) Diabetes 1.5, managed as type 2: Code(s): E13.9 - Other specified diabetes mellitus without complications (9) Morbid obesity: Code(s): E66.01 - Morbid (severe) obesity due to excess calories (10) Depression, major, recurrent: Code(s): F33.9 - Major depressive disorder, recurrent, unspecified Qualifiers: Active/Remission status: in partial remission Qualified Code(s): F33.41 - Major depressive disorder, recurrent, in partial remission (11) Anxiety, generalized: Code(s): F41.1 - Generalized anxiety disorder (12) Allergy to environmental factors: Code(s): Z91.09 - Other allergy status, other than to drugs and biological substances (13) Chronic stasis dermatitis: Code(s): I87.2 - Venous insufficiency (chronic) (peripheral) (14) Benign prostatic hyperplasia: Code(s): N40.0 - Benign prostatic hyperplasia without lower urinary tract symptoms Qualifiers: Lower urinary tract symptom detail: nocturia Lower urinary tract symptom presence: symptoms present Qualified Code(s): N40.1 - Benign prostatic hyperplasia with lower urinary tract symptoms; R35.1 - Nocturia (15) Lumbosacral spondylosis: Code(s): M47.817 - Spondylosis without myelopathy or radiculopathy, lumbosacral region (16) Lumbar degenerative disc disease: Code(s): M51.36 - Other intervertebral disc degeneration, lumbar region (17) Morbid obesity with BMI of 45.0-49.9, adult: Code(s): E66.01 - Morbid (severe) obesity due to excess calories; Z68.42 - Body mass index [BMI] 45.0-49.9, adult (18) Pericarditis: Code(s): I31.9 - Disease of pericardium, unspecified Qualifiers: Chronic pericarditis complication: unspecified complication status Chronicity: chronic Pericarditis type: idiopathic Qualified Code(s): I31.9 - Disease of pericardium, unspecified Plan Patient is 73-year-old gentleman with a history of atrial fibrillation on warfarin, hypertension, COPD, coronary artery disease, anxiety and depression, obstructive sleep apnea on CPAP, GERD, diabetes Date of admission 08/12/2023 date of discharge 08/14/2023 Presented to emergency room in July with chief complaint of chest pain pleuritic in nature His oxygen saturation was normal on room air Blood workup was remarkable for mild elevated troponin with normal BNP. Renal and liver functions normal, mild leukocytosis Chest x-ray negative Bedside echo showed small pericardial effusion EKG showed atrial fibrillation with heart rate of 80 beats per minute Patient was started on colchicine in emergency room His chest pain improved with colchicine Cardiology diagnosed him with pericarditis He was prescribed Lasix 20 mg b.i.d. for mildly volume overload. Patient was chest pain-free before discharge He was discharged with a prescription of Farxiga and colchicine Patient has been feeling dizzy since he has started faexiga, stopping that to see if he is dizziness gets better His blood pressure is running low as well, currently he is taking valsartan 20 mg I have changed it to losartan 25 mg half a tablet daily He is now working with Ashia Beebe, who used to work in psychiatric [employer] She is taking care of his medications and his appointments. Patient will return in 3 months labs to be done before visit Medication list reviewed Dr. Lewis cardiology informed about stopping Farxiga Patient is seeing for cardiomyopathy and pericarditis Orders: Orders Microalbumin, Random (w Creat) 2 Months E13.9 - Other specified diabetes mellitus without complications, E66.01 - Morbid (severe) obesity due to excess calories, F33.41 - Major depressive disorder, recurrent, in partial remission, F41.1 - Generalized anxiety disorder, I25.10 - Atherosclerotic heart disease of [place] coronary artery without angina pectoris, I27.82 - Chronic pulmonary embolism, I31.9 - Disease of pericardium, unspecified, I42.9 - Cardiomyopathy, unspecified, I87.2 - Venous insufficiency (chronic) (peripheral), J44.9 - Chronic obstructive pulmonary disease, unspecified, K21.9 - Gastro-esophageal reflux disease without esophagitis, M47.817 - Spondylosis without myelopathy or radiculopathy, lumbosacral region, M51.36 - Other intervertebral disc degeneration, lumbar region, N40.1 - Benign prostatic hyperplasia with lower urinary tract symptoms, R35.1 - Nocturia, Z68.42 - Body mass index [BMI] 45.0-49.9, adult, Z79.01 - jail (current) use of anticoagulants, Z91.09 - Other allergy status, other than to drugs and biological substances Complete Blood Count Auto Diff 2 Months E13.9 - Other specified diabetes mellitus without complications, E66.01 - Morbid (severe) obesity due to excess calories, F33.41 - Major depressive disorder, recurrent, in partial remission, F41.1 - Generalized anxiety disorder, I25.10 - Atherosclerotic heart disease of [place] coronary artery without angina pectoris, I27.82 - Chronic pulmonary embolism, I31.9 - Disease of pericardium, unspecified, I42.9 - Cardiomyopathy, unspecified, I87.2 - Venous insufficiency (chronic) (peripheral), J44.9 - Chronic obstructive pulmonary disease, unspecified, K21.9 - Gastro-esophageal reflux disease without esophagitis, M47.817 - Spondylosis without myelopathy or radiculopathy, lumbosacral region, M51.36 - Other intervertebral disc degeneration, lumbar region, N40.1 - Benign prostatic hyperplasia with lower urinary tract symptoms, R35.1 - Nocturia, Z68.42 - Body mass index [BMI] 45.0-49.9, adult, Z79.01 - 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, Z91.09 - Other allergy status, other than to drugs and biological substances Hemoglobin A1c 2 Months E13.9 - Other specified diabetes mellitus without complications, E66.01 - Morbid (severe) obesity due to excess calories, F33.41 - Major depressive disorder, recurrent, in partial remission, F41.1 - Generalized anxiety disorder, I25.10 - Atherosclerotic heart disease of [place] coronary artery without angina pectoris, I27.82 - Chronic pulmonary embolism, I31.9 - Disease of pericardium, unspecified, I42.9 - Cardiomyopathy, unspecified, I87.2 - Venous insufficiency (chronic) (peripheral), J44.9 - Chronic obstructive pulmonary disease, unspecified, K21.9 - Gastro-esophageal reflux disease without esophagitis, M47.817 - Spondylosis without myelopathy or radiculopathy, lumbosacral region, M51.36 - Other intervertebral disc degeneration, lumbar region, N40.1 - Benign prostatic hyperplasia with lower urinary tract symptoms, R35.1 - Nocturia, Z68.42 - Body mass index [BMI] 45.0-49.9, adult, Z79.01 - jail (current) use of anticoagulants, Z91.09 - Other allergy status, other than to drugs and biological substances Comprehensive Met. Panel 2 Months E13.9 - Other specified diabetes mellitus without complications, E66.01 - Morbid (severe) obesity due to excess calories, F33.41 - Major depressive disorder, recurrent, in partial remission, F41.1 - Generalized anxiety disorder, I25.10 - Atherosclerotic heart disease of [place] coronary artery without angina pectoris, I27.82 - Chronic pulmonary embolism, I31.9 - Disease of pericardium, unspecified, I42.9 - Cardiomyopathy, unspecified, I87.2 - Venous insufficiency (chronic) (peripheral), J44.9 - Chronic obstructive pulmonary disease, unspecified, K21.9 - Gastro-esophageal reflux disease without esophagitis, M47.817 - Spondylosis without myelopathy or radiculopathy, lumbosacral region, M51.36 - Other intervertebral disc degeneration, lumbar region, N40.1 - Benign prostatic hyperplasia with lower urinary tract symptoms, R35.1 - Nocturia, Z68.42 - Body mass index [BMI] 45.0-49.9, adult, Z79.01 - 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, Z91.09 - Other allergy status, other than to drugs and biological substances LDL Cholesterol Direct 2 Months E13.9 - Other specified diabetes mellitus without complications, E66.01 - Morbid (severe) obesity due to excess calories, F33.41 - Major depressive disorder, recurrent, in partial remission, F41.1 - Generalized anxiety disorder, I25.10 - Atherosclerotic heart disease of [place] coronary artery without angina pectoris, I27.82 - Chronic pulmonary embolism, I31.9 - Disease of pericardium, unspecified, I42.9 - Cardiomyopathy, unspecified, I87.2 - Venous insufficiency (chronic) (peripheral), J44.9 - Chronic obstructive pulmonary disease, unspecified, K21.9 - Gastro-esophageal reflux disease without esophagitis, M47.817 - Spondylosis without myelopathy or radiculopathy, lumbosacral region, M51.36 - Other intervertebral disc degeneration, lumbar region, N40.1 - Benign prostatic hyperplasia with lower urinary tract symptoms, R35.1 - Nocturia, Z68.42 - Body mass index [BMI] 45.0-49.9, adult, Z79.01 - jail (current) use of anticoagulants, Z91.09 - Other allergy status, other than to drugs and biological substances Medications: New losartan 12.5 mg (1/2 x 25 mg) PO DAILY 45 tabs 0RF 90 days Coding Level of Care Code Est Pt Level 5 (93551) Diagnoses Hospital discharge follow-up Z09 Current use of anticoagulant therapy Z79.01 Other chronic pulmonary embolism without acute cor pulmonale I27.82 Acute cor pulmonale presence: without acute cor pulmonale Pulmonary embolism type: other Cardiomyopathy, unspecified type I42.9 Cardiomyopathy type: unspecified Coronary artery disease involving [place] coronary artery of [place] heart without angina pectoris I25.10 Associated angina: without angina Coronary Disease-Associated Artery/Lesion type: [place] artery [place] vs. transplanted heart: [place] heart COPD (chronic obstructive pulmonary disease) J44.9 Chronic GERD K21.9 Diabetes 1.5, managed as type 2 E13.9 Morbid obesity E66.01 Recurrent major depressive disorder, in partial remission F33.41 Active/Remission status: in partial remission Anxiety, generalized F41.1 Allergy to environmental factors Z91.09 Chronic stasis dermatitis I87.2 Benign prostatic hyperplasia with nocturia N40.1; R35.1 Lower urinary tract symptom detail: nocturia Lower urinary tract symptom presence: symptoms present Lumbosacral spondylosis M47.817 Lumbar degenerative disc disease M51.36 Morbid obesity with BMI of 45.0-49.9, adult E66.01; Z68.42 Chronic idiopathic pericarditis, unspecified complication status I31.9 Chronic pericarditis complication: unspecified complication status Chronicity: chronic Pericarditis type: idiopathic Time Spent (min) 46 Comment 5 minute pre visit, 30 with patient, 6 minute charting, 5 minute coordination of care
== END 2023-10-26 15:30 | disposition home or self-care (01) ==
PROVIDERS: PCP Internal Medicine; Visit Provider Internal Medicine
DX: I27.82 Chronic pulmonary embolism (principal); I42.9 Cardiomyopathy, unspecified; J44.9 Chronic obstructive pulmonary disease, unspecified; E13.9 Other specified diabetes mellitus without complications; E66.01 Morbid (severe) obesity due to excess calories; F33.41 Major depressive disorder, recurrent, in partial remission; Z68.42 Body mass index [BMI] 45.0-49.9, adult; Z09 Encounter for follow-up examination after completed treatment for conditions other than malignant neoplasm; Z79.01 Long term (current) use of anticoagulants; I25.10 Atherosclerotic heart disease of native coronary artery without angina pectoris; K21.9 Gastro-esophageal reflux disease without esophagitis; F41.1 Generalized anxiety disorder
CPT/HCPCS: 99215

== ENCOUNTER 2023-10-27 10:45 | Outpatient (AMB) | payer OTHER, SELFPAY ==
[2023-10-27 11:04] LABS: Prothrombin Time Whole Bld POC 29.9 sec (11.1-13.5); ~PT, ~INR - Anti Coag Clinic 2.5 (0.9-1.1)
--- NOTE | 2023-10-27 11:07 | MHC.OFFVISCO ---
Intake Intake Visit Reasons: Anticoagulation Allergies iodine [IODINE] Allergy (Intermediate, Verified 10/27/23 10:51) HIVES, bloating latex [LATEX] Allergy (Intermediate, Verified 10/27/23 10:51) HIVES shellfish derived [SHELLFISH DERIVED] Allergy (Intermediate, Verified 10/27/23 10:51) ANAPHYLAXIS Medication List - Last Reconciled 10/27/23 by Flores Penaloza RN acetaminophen ER 1,300 mg PO DAILY atorvastatin 10 mg PO BEDTIME bupropion HCl 100 mg PO BEDTIME bupropion HCl 200 mg PO DAILY carvedilol 6.25 mg See Protocol PO BID 90 days cetirizine 10 mg PO DAILY cholecalciferol (vitamin D3) (Vitamin D3) 50 mcg PO DAILY colchicine (Colcrys) 0.6 mg PO DAILY 90 days digoxin 250 mcg PO 3XW 90 days diphenhydramine HCl (Allergy (diphenhydramine)) 25 mg orally 2 TABS AT HS PRN; duloxetine 40 mg PO DAILY furosemide 20 mg PO BID gabapentin 300 mg PO BEDTIME gabapentin 100 mg PO BID losartan 12.5 mg (1/2 x 25 mg) PO DAILY 90 days multivitamin 1 tab PO DAILY omega-3 fatty acids 500 mg PO DAILY sennosides-docusate sodium 8.6-50 mg (Senokot-S) 2 tab-caps (2 x 8.6-50 mg) PO BEDTIME tamsulosin (Flomax) 0.8 mg (2 x 0.4 mg) PO BEDTIME tizanidine 4 mg PO BEDTIME warfarin 2 mg See Protocol PO TUFR warfarin 4 mg See Protocol PO DAILY Nursing Note INR: 2.5- in therapeutic range of 2-3 Medications and supplements reviewed- valsartan and farxiga d/c . now on losartan 12.5mg daily- no interaction with warfarin per micromedex No changes in health, diet, medications, or supplements, Denies any signs and symptoms of bleeding or bruising or clotting. Bleeding, bruising, clotting discussed Nutritional guidance given Dose: 4mg x 6, 6mg x 1, pt req to cont same dosing F/U INR: pt req 10 days Patient verbalizes understanding of instructions given pt vague with c.o short term memory issues. pt states missed a dose last week and this week- unsure of days. pt self dosed and took extra warfarin. pt enc to call acs with any missed doses. pt states will set robert for reminder at night to take meds. pt expressive therapist erik present for visit. Anti-Coag Initial Assessment Social Hx Patient Tobacco Use Status: Former Tobacco user Quit Date: 1998 alcohol intake: never Coding Level of Care Code Est Patient Level 1 Diagnoses Current use of anticoagulant therapy Z79.01 Assessment & Plan Assessment & Plan (1) Current use of anticoagulant therapy: Code(s): Z79.01 - [facility] (current) use of anticoagulants Category: Medical
== END 2023-10-27 11:17 | disposition home or self-care (01) ==
LOC: HO.ACS 10:45
PROVIDERS: PCP Internal Medicine; Visit Provider Internal Medicine
DX: Z79.01 Long term (current) use of anticoagulants (principal)

== ENCOUNTER → 2023-10-27 10:45 | Outpatient (BNVA) | payer OTHER, SELFPAY | PROVIDERS: PCP Internal Medicine; Visit Provider Internal Medicine | DX: I26.99 Other pulmonary embolism without acute cor pulmonale (principal); Z79.01 Long term (current) use of anticoagulants; Z51.81 Encounter for therapeutic drug level monitoring | CPT/HCPCS: 85610; 99211 ==

== ENCOUNTER 2023-11-05 11:14 | Outpatient (AMB) | payer OTHER, SELFPAY ==
[2023-11-05 11:26] LABS: Prothrombin Time Whole Bld POC 54.3 sec (11.1-13.5); ~PT, ~INR - Anti Coag Clinic 4.5 (0.9-1.1)
--- NOTE | 2023-11-05 11:36 | MHC.OFFVISCO ---
Intake Intake Visit Reasons: Anticoagulation Allergies iodine [IODINE] Allergy (Intermediate, Verified 11/05/23 11:17) HIVES, bloating latex [LATEX] Allergy (Intermediate, Verified 11/05/23 11:17) HIVES shellfish derived [SHELLFISH DERIVED] Allergy (Intermediate, Verified 11/05/23 11:17) ANAPHYLAXIS Medication List - Last Reconciled 11/05/23 by Brittany Hassan, RN acetaminophen ER 1,300 mg PO DAILY atorvastatin 10 mg PO BEDTIME bupropion HCl 100 mg PO BEDTIME bupropion HCl 200 mg PO DAILY carvedilol 6.25 mg See Protocol PO BID 90 days cetirizine 10 mg PO DAILY cholecalciferol (vitamin D3) (Vitamin D3) 50 mcg PO DAILY colchicine (Colcrys) 0.6 mg PO DAILY 90 days digoxin 250 mcg PO 3XW 90 days diphenhydramine HCl (Allergy (diphenhydramine)) 25 mg orally 2 TABS AT HS PRN; duloxetine 40 mg PO DAILY furosemide 20 mg PO BID gabapentin 300 mg PO BEDTIME gabapentin 100 mg PO BID losartan 12.5 mg (1/2 x 25 mg) PO DAILY 90 days multivitamin 1 tab PO DAILY omega-3 fatty acids 500 mg PO DAILY sennosides-docusate sodium 8.6-50 mg (Senokot-S) 2 tab-caps (2 x 8.6-50 mg) PO BEDTIME tamsulosin (Flomax) 0.8 mg (2 x 0.4 mg) PO BEDTIME tizanidine 4 mg PO BEDTIME warfarin 2 mg See Protocol PO TUFR warfarin 4 mg See Protocol PO DAILY Nursing Note Amb to [facility] using cane, accomp by OCCUPATIONAL THERAPY ASSIST Sts feeling ok Medications and supplements reviewed, changes last visit No other changes in health, diet, medications, or supplements, Denies any signs and symptoms of bleeding,bruising, or clotting. Bleeding, bruising, clotting discussed also reinforced to pt if falls and hits head he will need to go to ED for scan of head for bleeding inside of head (as pt sts he had some recent medication changes due to frequent falls and when questioned about F/U for falls never knew I had to go to ED ) denies any falls since last visit INR 4.5 above Therapeutic range thinks he didn't do his usual greens which for him is canned peaches- usually 3 cans a week Dose: hold warfarin today then take usual 4mg over the weekend, decrease dose Wednesday to 4mg (vs 6mg) Nutritional guidance given- get canned peaches and try to be consistent with them (pt does not do greens) F/U INR: Thursday 11/09 is the earliest pt and OCCUPATIONAL THERAPY ASSIST is available Patient verbalizes understanding of instructions given, dosing sheet reviewed and discussion regarding potential weekly decrease to 4mg daily Anti-Coag Initial Assessment Social Hx Patient Tobacco Use Status: Former Tobacco user Quit Date: 1998 alcohol intake: never Coding Level of Care Code Est Patient Level 1 Diagnoses Current use of anticoagulant therapy Z79.01 Time Spent (min) 15 Assessment & Plan Assessment & Plan (1) Current use of anticoagulant therapy: Code(s): Z79.01 - [facility] (current) use of anticoagulants Category: Medical
== END 2023-11-05 12:11 | disposition home or self-care (01) ==
LOC: HO.ACS 11:14
PROVIDERS: PCP Internal Medicine; Visit Provider Internal Medicine
DX: Z79.01 Long term (current) use of anticoagulants (principal)

== ENCOUNTER → 2023-11-05 11:14 | Outpatient (BNVA) | payer OTHER, SELFPAY | PROVIDERS: PCP Internal Medicine; Visit Provider Internal Medicine | DX: I26.99 Other pulmonary embolism without acute cor pulmonale (principal); Z51.81 Encounter for therapeutic drug level monitoring; Z79.01 Long term (current) use of anticoagulants | CPT/HCPCS: 85610; 99211 ==

== ENCOUNTER 2023-11-19 11:15 | Outpatient (AMB) | payer OTHER, SELFPAY ==
[2023-11-19 11:33] LABS: Prothrombin Time Whole Bld POC 42.9 sec (11.1-13.5); ~PT, ~INR - Anti Coag Clinic 3.6 (0.9-1.1)
--- NOTE | 2023-11-19 11:46 | MHC.OFFVISCO ---
Intake Intake Visit Reasons: Anticoagulation Allergies iodine [IODINE] Allergy (Intermediate, Verified 11/19/23 11:25) HIVES, bloating latex [LATEX] Allergy (Intermediate, Verified 11/19/23 11:25) HIVES shellfish derived [SHELLFISH DERIVED] Allergy (Intermediate, Verified 11/19/23 11:25) ANAPHYLAXIS Medication List - Last Reconciled 11/19/23 by Priscila Gilliland RN acetaminophen ER 1,300 mg PO DAILY atorvastatin 10 mg PO BEDTIME bupropion HCl 100 mg PO BEDTIME bupropion HCl 200 mg PO DAILY carvedilol 6.25 mg See Protocol PO BID 90 days cetirizine 10 mg PO DAILY cholecalciferol (vitamin D3) (Vitamin D3) 50 mcg PO DAILY colchicine (Colcrys) 0.6 mg PO DAILY 90 days digoxin 250 mcg PO 3XW 90 days diphenhydramine HCl (Allergy (diphenhydramine)) 25 mg orally 2 TABS AT HS PRN; duloxetine 40 mg PO DAILY furosemide 20 mg PO BID gabapentin 300 mg PO BEDTIME gabapentin 100 mg PO BID losartan 12.5 mg (1/2 x 25 mg) PO DAILY 90 days multivitamin 1 tab PO DAILY omega-3 fatty acids 500 mg PO DAILY risperidone 0.25 mg PO DAILY sennosides-docusate sodium 8.6-50 mg (Senokot-S) 2 tab-caps (2 x 8.6-50 mg) PO BEDTIME tamsulosin (Flomax) 0.8 mg (2 x 0.4 mg) PO BEDTIME tizanidine 4 mg PO BEDTIME warfarin 2 mg See Protocol PO TUFR warfarin 4 mg See Protocol PO DAILY Nursing Note INR: 3.6 OUT OF therapeutic range HAS GIVEN UP ICE CREAM - HE BELIEVES IT WAS THE SOURCE OF HIS DIARRHEA Medications and supplements reviewed No changes in health, diet, medications, or supplements, Denies any signs and symptoms of bleeding or bruising or clotting. 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
== END 2023-11-19 11:49 | disposition home or self-care (01) ==
LOC: HO.ACS 11:15
PROVIDERS: PCP Internal Medicine; Visit Provider Internal Medicine
DX: Z79.01 Long term (current) use of anticoagulants (principal)

== ENCOUNTER → 2023-11-19 11:15 | Outpatient (BNVA) | payer OTHER, SELFPAY | PROVIDERS: PCP Internal Medicine; Visit Provider Internal Medicine | DX: I26.99 Other pulmonary embolism without acute cor pulmonale (principal); Z51.81 Encounter for therapeutic drug level monitoring; Z79.01 Long term (current) use of anticoagulants | CPT/HCPCS: 85610; 99211 ==

== ENCOUNTER 2023-11-26 11:25 | Outpatient (AMB) | payer OTHER, SELFPAY ==
--- NOTE | 2023-11-26 11:36 | MHC.OFFVISCO ---
Intake Intake Visit Reasons: Anticoagulation Allergies iodine [IODINE] Allergy (Intermediate, Verified 11/26/23 11:25) HIVES, bloating latex [LATEX] Allergy (Intermediate, Verified 11/26/23 11:25) HIVES shellfish derived [SHELLFISH DERIVED] Allergy (Intermediate, Verified 11/26/23 11:25) ANAPHYLAXIS Medication List - Last Reconciled 11/26/23 by Quynh Cervantes RN acetaminophen ER 1,300 mg PO DAILY atorvastatin 10 mg PO BEDTIME bupropion HCl 100 mg PO BEDTIME bupropion HCl 200 mg PO DAILY carvedilol 6.25 mg See Protocol PO BID 90 days cetirizine 10 mg PO DAILY cholecalciferol (vitamin D3) (Vitamin D3) 50 mcg PO DAILY colchicine (Colcrys) 0.6 mg PO DAILY 90 days digoxin 250 mcg PO 3XW 90 days diphenhydramine HCl (Allergy (diphenhydramine)) 25 mg orally 2 TABS AT HS PRN; duloxetine 40 mg PO DAILY furosemide 20 mg PO BID gabapentin 300 mg PO BEDTIME gabapentin 100 mg PO BID losartan 12.5 mg (1/2 x 25 mg) PO DAILY 90 days multivitamin 1 tab PO DAILY omega-3 fatty acids 500 mg PO DAILY risperidone 0.25 mg PO DAILY sennosides-docusate sodium 8.6-50 mg (Senokot-S) 2 tab-caps (2 x 8.6-50 mg) PO BEDTIME tamsulosin (Flomax) 0.8 mg (2 x 0.4 mg) PO BEDTIME tizanidine 4 mg PO BEDTIME warfarin 4 mg See Protocol PO DAILY Nursing Note NO CP,SOB,DIET/MED CHANGES,FALLS OR SX OF BLEEDING. CONTINUE PRESENT DOSE AND FOLLOW-UP IN 1 WEEK GOOD UNDERSTANDING OF DOSING INSTR. 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
[2023-11-26 11:38] LABS: ~PT, ~INR - Anti Coag Clinic 2.1 (0.9-1.1)
== END 2023-11-26 11:38 | disposition home or self-care (01) ==
LOC: HO.ACS 11:25
PROVIDERS: PCP Internal Medicine; Visit Provider Internal Medicine
DX: Z79.01 Long term (current) use of anticoagulants (principal)

== ENCOUNTER → 2023-11-26 11:25 | Outpatient (BNVA) | payer OTHER, SELFPAY | PROVIDERS: PCP Internal Medicine; Visit Provider Internal Medicine | DX: I26.99 Other pulmonary embolism without acute cor pulmonale (principal); Z51.81 Encounter for therapeutic drug level monitoring; Z79.01 Long term (current) use of anticoagulants | CPT/HCPCS: 85610; 99211 ==

== ENCOUNTER 2023-12-03 11:18 | Outpatient (AMB) | payer OTHER, SELFPAY ==
--- NOTE | 2023-12-03 11:35 | MHC.OFFVISCO ---
Intake Intake Visit Reasons: Anticoagulation Allergies iodine [IODINE] Allergy (Intermediate, Verified 12/03/23 11:18) HIVES, bloating latex [LATEX] Allergy (Intermediate, Verified 12/03/23 11:18) HIVES shellfish derived [SHELLFISH DERIVED] Allergy (Intermediate, Verified 12/03/23 11:18) ANAPHYLAXIS Medication List - Last Reconciled 12/03/23 by Priscila Gilliland RN acetaminophen ER 1,300 mg PO DAILY atorvastatin 10 mg PO BEDTIME bupropion HCl 100 mg PO BEDTIME bupropion HCl 200 mg PO DAILY carvedilol 6.25 mg See Protocol PO BID 90 days cetirizine 10 mg PO DAILY cholecalciferol (vitamin D3) (Vitamin D3) 50 mcg PO DAILY colchicine (Colcrys) 0.6 mg PO DAILY 90 days digoxin 250 mcg PO 3XW 90 days diphenhydramine HCl (Allergy (diphenhydramine)) 25 mg orally 2 TABS AT HS PRN; duloxetine 40 mg PO DAILY furosemide 20 mg PO BID gabapentin 300 mg PO BEDTIME gabapentin 100 mg PO BID losartan 12.5 mg (1/2 x 25 mg) PO DAILY 90 days multivitamin 1 tab PO DAILY omega-3 fatty acids 500 mg PO DAILY risperidone 0.25 mg PO DAILY sennosides-docusate sodium 8.6-50 mg (Senokot-S) 2 tab-caps (2 x 8.6-50 mg) PO BEDTIME tamsulosin (Flomax) 0.8 mg (2 x 0.4 mg) PO BEDTIME tizanidine 4 mg PO BEDTIME warfarin 4 mg See Protocol PO DAILY Nursing Note INR: 2.0 in therapeutic range - Medications and supplements reviewed- TAKING [facility] FOR GI UPSET- enc to limit or not take pepto if he can due to risk of bleeding with the asprin in it. he currently denies any black stools Pt states he was up all night r/t GI upset- thinks it is from the mayonaise he ate Denies any signs and symptoms of bleeding or bruising or clotting. Bleeding, bruising, clotting discussed Nutritional guidance given - eat a mix of fruits and vegetables that he can tolerate Dose: 4mg daily next week then resume 2mg x 1 day/ 4mg x 6 days F/U INR: 2 weeks Patient verbalizes understanding of instructions given Anti-Coag Initial Assessment Social Hx Patient Tobacco Use Status: Former Tobacco user Quit Date: 1998 alcohol intake: never Coding Level of Care Code Est Patient Level 1 Diagnoses Current use of anticoagulant therapy Z79.01 Results AMB INR Fingerstick AMB INR Fingerstick 2.0 Last Edit by Priscila Gilliland RN on 12/03/23 11:30 MANUAL ENTRY Assessment & Plan Assessment & Plan (1) Current use of anticoagulant therapy: Code(s): 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
[2023-12-03 15:48] LABS: Prothrombin Time Whole Bld POC 23.6 sec (11.1-13.5)
== END 2023-12-03 11:39 | disposition home or self-care (01) ==
LOC: HO.ACS 11:18
PROVIDERS: PCP Internal Medicine; Visit Provider Internal Medicine
DX: Z79.01 Long term (current) use of anticoagulants (principal)

== ENCOUNTER → 2023-12-03 11:18 | Outpatient (BNVA) | payer OTHER, SELFPAY | PROVIDERS: PCP Internal Medicine; Visit Provider Internal Medicine | DX: I26.99 Other pulmonary embolism without acute cor pulmonale (principal); Z51.81 Encounter for therapeutic drug level monitoring; Z79.01 Long term (current) use of anticoagulants | CPT/HCPCS: 85610; 99211 ==

== ENCOUNTER 2023-12-17 11:15 | Outpatient (AMB) | payer OTHER, SELFPAY ==
[2023-12-17 11:24] LABS: Prothrombin Time Whole Bld POC 18.3 sec (11.1-13.5); ~PT, ~INR - Anti Coag Clinic 1.5 (0.9-1.1)
--- NOTE | 2023-12-17 11:54 | MHC.OFFVISCO ---
Intake Intake Visit Reasons: Anticoagulation Allergies iodine [IODINE] Allergy (Intermediate, Verified 12/17/23 11:17) HIVES, bloating latex [LATEX] Allergy (Intermediate, Verified 12/17/23 11:17) HIVES shellfish derived [SHELLFISH DERIVED] Allergy (Intermediate, Verified 12/17/23 11:17) ANAPHYLAXIS Medication List - Last Reconciled 12/17/23 by Brittany German RN acetaminophen ER 1,300 mg PO DAILY atorvastatin 10 mg PO BEDTIME bupropion HCl 100 mg PO BEDTIME bupropion HCl 200 mg PO DAILY carvedilol 6.25 mg See Protocol PO BID 90 days cetirizine 10 mg PO DAILY cholecalciferol (vitamin D3) (Vitamin D3) 50 mcg PO DAILY colchicine (Colcrys) 0.6 mg PO DAILY 90 days digoxin 250 mcg PO 3XW 90 days diphenhydramine HCl (Allergy (diphenhydramine)) 25 mg orally 2 TABS AT HS PRN; duloxetine 40 mg PO DAILY furosemide 20 mg PO BID gabapentin 300 mg PO BEDTIME gabapentin 100 mg PO BID losartan 12.5 mg (1/2 x 25 mg) PO DAILY 90 days multivitamin 1 tab PO DAILY omega-3 fatty acids 500 mg PO DAILY risperidone 0.25 mg PO DAILY sennosides-docusate sodium 8.6-50 mg (Senokot-S) 2 tab-caps (2 x 8.6-50 mg) PO BEDTIME tamsulosin (Flomax) 0.8 mg (2 x 0.4 mg) PO BEDTIME tizanidine 4 mg PO BEDTIME warfarin 4 mg See Protocol PO DAILY Nursing Note 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 Pt using a cane. INR ?1.5?out of therapeutic range of 2-3 Pt denies missed dose Medications and supplements reviewed: no changes Patient status: pt in usual state of health Medications or supplements: no changes Diet: pt states he is not eating as much and has lost weight Denies any signs and symptoms of bleeding or clotting or unusual bruising Bleeding, bruising, clotting discussed Nutritional guidance given: to avoid greens today and review the food list Pt will try to have foods from the list that raises the INR Dose: increased today's dose to 8mg (4mg) then 4 mg daily F/U INR Date : 5 days?? Patient verbalizing understanding of instructions given. T/C to Dr Carvajal's office. Spoke to [place] . INR reported with dosing plan and date of re-test. 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
== END 2023-12-17 12:04 | disposition home or self-care (01) ==
LOC: HO.ACS 11:15
PROVIDERS: PCP Internal Medicine; Visit Provider Internal Medicine
DX: Z79.01 Long term (current) use of anticoagulants (principal)

== ENCOUNTER → 2023-12-17 11:15 | Outpatient (BNVA) | payer OTHER, SELFPAY | PROVIDERS: PCP Internal Medicine; Visit Provider Internal Medicine | DX: I26.99 Other pulmonary embolism without acute cor pulmonale (principal); Z79.01 Long term (current) use of anticoagulants; Z51.81 Encounter for therapeutic drug level monitoring | CPT/HCPCS: 85610; 99211 ==

== ENCOUNTER 2023-12-31 10:40 | Outpatient (AMB) | payer OTHER, SELFPAY ==
[2023-12-31 11:12] LABS: Prothrombin Time Whole Bld POC 25.5 sec (11.1-13.5); ~PT, ~INR - Anti Coag Clinic 2.1 (0.9-1.1)
--- NOTE | 2023-12-31 11:14 | MHC.OFFVISCO ---
Intake Intake Visit Reasons: Anticoagulation Allergies iodine [IODINE] Allergy (Intermediate, Verified 12/31/23 11:07) HIVES, bloating latex [LATEX] Allergy (Intermediate, Verified 12/31/23 11:07) HIVES shellfish derived [SHELLFISH DERIVED] Allergy (Intermediate, Verified 12/31/23 11:07) ANAPHYLAXIS Medication List - Last Reconciled 12/31/23 by Brittany Hassan RN acetaminophen ER 1,300 mg PO DAILY atorvastatin 10 mg PO BEDTIME bupropion HCl 100 mg PO BEDTIME bupropion HCl 200 mg PO DAILY carvedilol 6.25 mg See Protocol PO BID 90 days cetirizine 10 mg PO DAILY cholecalciferol (vitamin D3) (Vitamin D3) 50 mcg PO DAILY colchicine (Colcrys) 0.6 mg PO DAILY 90 days digoxin 250 mcg PO 3XW 90 days diphenhydramine HCl (Allergy (diphenhydramine)) 25 mg orally 2 TABS AT HS PRN; duloxetine 40 mg PO DAILY furosemide 20 mg PO BID gabapentin 300 mg PO BEDTIME gabapentin 100 mg PO BID losartan 12.5 mg (1/2 x 25 mg) PO DAILY 90 days multivitamin 1 tab PO DAILY omega-3 fatty acids 500 mg PO DAILY risperidone 0.25 mg PO DAILY sennosides-docusate sodium 8.6-50 mg (Senokot-S) 2 tab-caps (2 x 8.6-50 mg) PO BEDTIME tamsulosin (Flomax) 0.8 mg (2 x 0.4 mg) PO BEDTIME tizanidine 4 mg PO BEDTIME warfarin 4 mg See Protocol PO DAILY Nursing Note Amb to [facility] using cane 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
== END 2023-12-31 11:19 | disposition home or self-care (01) ==
LOC: HO.ACS 10:40
PROVIDERS: PCP Internal Medicine; Visit Provider Internal Medicine
DX: Z79.01 Long term (current) use of anticoagulants (principal)

== ENCOUNTER → 2023-12-31 10:40 | Outpatient (BNVA) | payer OTHER, SELFPAY | PROVIDERS: PCP Internal Medicine; Visit Provider Internal Medicine | DX: I26.99 Other pulmonary embolism without acute cor pulmonale (principal); Z79.01 Long term (current) use of anticoagulants; Z51.81 Encounter for therapeutic drug level monitoring | CPT/HCPCS: 85610; 99211 ==

== ENCOUNTER 2024-01-05 10:44 | Outpatient (AMB) | payer OTHER, SELFPAY ==
--- NOTE | 2024-01-05 10:51 | A.OFFPC_ITS ---
Vital Signs 3 01/05/24 10:54 Height 6 ft Weight 330 lb BMI 44.8 BP 116/82 Blood Pressure Location Rt brachial Position Sitting Pulse 85 Pulse Source Pulse Oximeter Pulse Oximetry (%) 96 Oxygen Delivery Method Room Air Intake Visit Reasons: Annual Physical - see comments Allergies iodine [IODINE] Allergy (Intermediate, Verified 01/05/24 10:55) HIVES, bloating latex [LATEX] Allergy (Intermediate, Verified 01/05/24 10:55) HIVES shellfish derived [SHELLFISH DERIVED] Allergy (Intermediate, Verified 01/05/24 10:55) ANAPHYLAXIS Medication List - Last Reconciled 01/05/24 by Jaylon Carvajal MD acetaminophen ER 1,300 mg PO DAILY atorvastatin 10 mg PO BEDTIME bupropion HCl 100 mg PO BEDTIME bupropion HCl 200 mg PO DAILY carvedilol 6.25 mg See Protocol PO BID 90 days cetirizine 10 mg PO DAILY cholecalciferol (vitamin D3) (Vitamin D3) 50 mcg PO DAILY colchicine (Colcrys) 0.6 mg PO DAILY 90 days digoxin 250 mcg PO 3XW 90 days diphenhydramine HCl (Allergy (diphenhydramine)) 25 mg orally 2 TABS AT HS PRN; duloxetine 40 mg PO DAILY furosemide 20 mg PO BID gabapentin 300 mg PO BEDTIME gabapentin 100 mg PO BID losartan 12.5 mg (1/2 x 25 mg) PO DAILY 90 days multivitamin 1 tab PO DAILY omega-3 fatty acids 500 mg PO DAILY risperidone 0.25 mg PO DAILY sennosides-docusate sodium 8.6-50 mg (Senokot-S) 2 tab-caps (2 x 8.6-50 mg) PO BEDTIME tamsulosin (Flomax) 0.8 mg (2 x 0.4 mg) PO BEDTIME tizanidine 4 mg PO BEDTIME warfarin 4 mg See Protocol PO DAILY Tobacco use date assessed: 10/26/23 Fall risk assessment: 2 + Falls in past year Last assessed Fall Risk: 01/05/24 Dental Screening Dental Screen Date: 01/05/24 Did you have a dental visit in the last 12 months?: No Did you have a dental problem in the last 6 months where you did not have access to dental care?: No Was dental information given to patient?: No HPI Annual Physical - see comments 2 HPI0 Details Patient is 73-year-old morbidly obese gentleman with a history of cardiomyopathy, gait instability, 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 family intervention specialist Dr. Loomis Normal colonoscopy [address] [facility] Labs are due order was placed in October, reminded patient to do that He is in his usual state of health Exam is difficult due to body habitus, but patient was able to get on examination table [facility] Medical History Heart failure with reduced ejection fraction Chest pain, pleuritic Back pain Dyspnea NOEMI on CPAP COPD (chronic obstructive pulmonary disease) CAD (coronary artery disease) HLD (hyperlipidemia) HTN (hypertension) Diabetes Obstructive sleep apnea Morbid obesity Cardiomyopathy Persistent atrial fibrillation Current use of anticoagulant therapy Surgical History History of knee surgery History of ankle surgery Family History Father HTN (hypertension) Diabetes mellitus Cardiac disease Bone cancer Substance use disorder Mother HTN (hypertension) Lung cancer Social History Household Members: None Housing: Apartment Do you presently have visiting nurse or other home services: Yes ([employer]) Alcohol intake: never Comment: pt refusing bed alarm and red socks Patient Tobacco Use Status: Former Tobacco user Years Smoked: 30 yrs e-Cigarette/Vaping Use: Never Used Second Hand Smoke Exposure: No service: No Current occupational status: retired and disabled Cognitive needs: No Hearing needs: No Vision needs: Yes Questionnaire PHQ-9 Over the last 2 weeks, how often have you been bothered by any of the following problems? 1. Little interest or pleasure in doing things: several days 2. Feeling down, depressed, or hopeless: several days 3. Trouble falling or staying asleep, or sleeping too much: several days 4. Feeling tired or having little energy: several days 5. Poor appetite or overeating: not at all 6. Feeling bad about yourself - or that you are a failure or have let yourself or your family down: not at all 7. Trouble concentrating on things, such as reading the newspaper or watching television: not at all 8. Moving or speaking so slowly that other people could have noticed. Or the opposite - being so fidgety or restless that you have been moving around a lot more than usual: not at all 9. Thoughts that you would be better off or of hurting yourself in some way: not at all Total score: 4 Depression Screening Interpretation: Negative Depression Screening Done: Yes 40626 - PHQ-9 Billing: Yes Source: Developed by Drs. Momo Barboza, Sue De Leon, Cameron De Jesus and colleagues, with an educational nancy from [employer]. Thrive Questionnaire Date Thrive assessed: 08/13/23 AUDIT C Alcohol Use Questionnaire (AUDIT-C) 1. How often do you have a drink containing alcohol?: Never 3. How often do you have six or more drinks on one occasion?: Never Total Score: 0 Score Reviewed/Action Taken: No VIRGILIO-7 AMB Questionnaire VIRGILIO-7 Date VIRGILIO - 7 assessed: 01/05/24 Feeling nervous, anxious, or on edge: 1 = Several days Not being able to stop or control worryin = More than half the days Worrying too much about different things: 2 = More than half the days Trouble relaxin = More than half the days Being so restless that it is hard to sit still: 1 = Several days Becoming easily annoyed or irritable: 3 = Nearly every day Feeling afraid as if something awful might happen: 1 = Several days Total VIRGILIO-7 score (0-4 normal; 5-9 mild; 10-14 moderate; 15-21 severe): 12 Source: Developed by Drs. Momo Barboza, Cameron Eldridge and colleagues, with an educational nancy from [employer]. VIRGILIO-7 Assessment Billing VIRGILIO-7 Assessment Tool: VIRGILIO-7 Assessment 25742 Review of Systems Const Denies chills, Denies fever(s) and Denies headache(s) Eyes Denies blurry vision ENT Denies headache(s), Denies nasal discharge, Denies nasal obstruction, Denies odynophagia and Denies sinus pain Card Denies chest pain at rest and Denies chest pain with activity Resp Denies cough and Denies hemoptysis GI Denies diarrhea, Denies odynophagia, Denies vomiting and Denies hematemesis Reports as per HPI Musc Denies abnormal gait Skin/Breast Reports as per HPI Neuro Denies Neuro-related abnormal movements, Denies Abnormal speech present, Denies abnormal gait and Denies headache(s) Psych Denies mood swings and Denies paranoia Endo Reports as per HPI Doug/Lymph Reports as per HPI Aller/Immun Reports as per HPI Physical exam (Primary Care) Vital Signs: Last Vital Signs Pulse 85 01/05/24 10:54 BP 116/82 01/05/24 10:54 Pulse Ox 96 01/05/24 10:54 Oxygen Delivery Method Room Air 01/05/24 10:54 BMI result Body Mass Index 44.8 Tobacco/Smoking Status: Tobacco use Status Tobacco use date assessed 10/26/23 01/05/24 10:52 Patient Tobacco Use Status Former Tobacco user 01/05/24 10:52 e-Cigarette/Vaping Use Never Used 01/05/24 10:52 Depression Screening Interpretation: Negative Thrive Assessment: Date of Thrive Assessment Date Thrive assessed 08/13/23 01/05/24 10:52 Const General: cooperative, comfortable and no acute distress Orientation/consciousness: patient oriented x3 HENMT Head: Yes normocephalic and Yes atraumatic Eyes General: appearance normal, both eyes and all related structures Pupils: Equal, round and reactive pupils present EOM: EOMs intact bilaterally Neck Neck: Yes supple and No lymphadenopathy Thyroid: Thyroid normal Lymphatic: no lymphadenopathy noted Resp Effort & Inspection: normal respiratory effort and able to speak in complete sentences Auscultation: clear to auscultation bilaterally Cardio Heart sounds: S1 normal heart sound present and S2 normal heart sound present GI Palpation (GI): Soft to palpation and nontender Auscultation: normal bowel sounds Abdomen image: 2 1. Large umbilical hernia without pain General: Yes no CVA tenderness Back/Spine/Pelvis Back: no CVA tenderness Skin General skin exam: elasticity normal and turgor normal Neuro General: patient oriented x3 and gait normal Cranial nerves: Yes Equal, round and reactive pupils present Speech: No Abnormal speech present Coordination: Romberg test negative Extrem Ankle/foot/toe images: 2 1. Stasis dermatitis chronic 2. Stasis dermatitis chronic Assessment and Plan Assessment & Plan (1) Adult general medical exam: Code(s): Z00.00 - Encounter for general adult medical examination without abnormal findings (2) Morbid obesity with BMI of 45.0-49.9, adult: Code(s): E66.01 - Morbid (severe) obesity due to excess calories; Z68.42 - Body mass index [BMI] 45.0-49.9, adult (3) Lumbar degenerative disc disease: Code(s): M51.36 - Other intervertebral disc degeneration, lumbar region (4) Peripheral vascular disease in diabetes mellitus: Code(s): E11.51 - Type 2 diabetes mellitus with diabetic peripheral angiopathy without gangrene (5) Chronic stasis dermatitis: Code(s): I87.2 - Venous insufficiency (chronic) (peripheral) (6) Chronic atrial fibrillation: Code(s): I48.20 - Chronic atrial fibrillation, unspecified (7) Cardiomyopathy: Code(s): I42.9 - Cardiomyopathy, unspecified Qualifiers: Cardiomyopathy type: unspecified Qualified Code(s): I42.9 - Cardiomyopathy, unspecified (8) COPD (chronic obstructive pulmonary disease): Comment: No definitive evidence of COPD on recent PFTs Code(s): J44.9 - Chronic obstructive pulmonary disease, unspecified Qualifiers: COPD type: unspecified COPD Qualified Code(s): J44.9 - Chronic obstructive pulmonary disease, unspecified (9) CAD (coronary artery disease): Code(s): I25.10 - Atherosclerotic heart disease of [place] coronary artery without angina pectoris Qualifiers: Associated angina: without angina Coronary Disease-Associated Artery/Lesion type: [place] artery [place] vs. transplanted heart: [place] heart Qualified Code(s): I25.10 - Atherosclerotic heart disease of [place] coronary artery without angina pectoris (10) Allergy to environmental factors: Code(s): Z91.09 - Other allergy status, other than to drugs and biological substances (11) Anxiety, generalized: Code(s): F41.1 - Generalized anxiety disorder (12) Depression, major, recurrent: Code(s): F33.9 - Major depressive disorder, recurrent, unspecified Qualifiers: Active/Remission status: in partial remission Qualified Code(s): F33.41 - Major depressive disorder, recurrent, in partial remission (13) Diabetes 1.5, managed as type 2: Code(s): E13.9 - Other specified diabetes mellitus without complications (14) Muscle spasm: Code(s): M62.838 - Other muscle spasm Plan Patient is 73-year-old morbidly obese gentleman with a history of cardiomyopathy, gait instability, 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 family intervention specialist Dr. Loomis Normal colonoscopy [address] [facility] Labs are due order was placed in October, reminded patient to do that He is in his usual state of health Exam is difficult due to body habitus, but patient was able to get on examination table Orders: Orders 2 Microalbumin, Random (w Creat) Today E11.51 - Type 2 diabetes mellitus with diabetic peripheral angiopathy without gangrene, E13.9 - Other specified diabetes mellitus without complications, E66.01 - Morbid (severe) obesity due to excess calories, F33.41 - Major depressive disorder, recurrent, in partial remission, F41.1 - Generalized anxiety disorder, I25.10 - Atherosclerotic heart disease of [place] coronary artery without angina pectoris, I42.9 - Cardiomyopathy, unspecified, I48.20 - Chronic atrial fibrillation, unspecified, I87.2 - Venous insufficiency (chronic) (peripheral), J44.9 - Chronic obstructive pulmonary disease, unspecified, M51.36 - Other intervertebral disc degeneration, lumbar region, M62.838 - Other muscle spasm, Z00.00 - Encounter for general adult medical examination without abnormal findings, Z68.42 - Body mass index [BMI] 45.0-49.9, adult, Z91.09 - Other allergy status, other than to drugs and biological substances Complete Blood Count Auto Diff Today E11.51 - Type 2 diabetes mellitus with diabetic peripheral angiopathy without gangrene, E13.9 - Other specified diabetes mellitus without complications, E66.01 - Morbid (severe) obesity due to excess calories, F33.41 - Major depressive disorder, recurrent, in partial remission, F41.1 - Generalized anxiety disorder, I25.10 - Atherosclerotic heart disease of [place] coronary artery without angina pectoris, I42.9 - Cardiomyopathy, unspecified, I48.20 - Chronic atrial fibrillation, unspecified, I87.2 - Venous insufficiency (chronic) (peripheral), J44.9 - Chronic obstructive pulmonary disease, unspecified, M51.36 - Other intervertebral disc degeneration, lumbar region, M62.838 - Other muscle spasm, Z00.00 - Encounter for general adult medical examination without abnormal findings, Z68.42 - Body mass index [BMI] 45.0-49.9, adult, Z91.09 - Other allergy status, other than to drugs and biological substances Comprehensive [place]. Panel Fast Today E11.51 - Type 2 diabetes mellitus with diabetic peripheral angiopathy without gangrene, E13.9 - Other specified diabetes mellitus without complications, E66.01 - Morbid (severe) obesity due to excess calories, F33.41 - Major depressive disorder, recurrent, in partial remission, F41.1 - Generalized anxiety disorder, I25.10 - Atherosclerotic heart disease of [place] coronary artery without angina pectoris, I42.9 - Cardiomyopathy, unspecified, I48.20 - Chronic atrial fibrillation, unspecified, I87.2 - Venous insufficiency (chronic) (peripheral), J44.9 - Chronic obstructive pulmonary disease, unspecified, M51.36 - Other intervertebral disc degeneration, lumbar region, M62.838 - Other muscle spasm, Z00.00 - Encounter for general adult medical examination without abnormal findings, Z68.42 - Body mass index [BMI] 45.0-49.9, adult, Z91.09 - Other allergy status, other than to drugs and biological substances TSH reflex Free T4 Today E11.51 - Type 2 diabetes mellitus with diabetic peripheral angiopathy without gangrene, E13.9 - Other specified diabetes mellitus without complications, E66.01 - Morbid (severe) obesity due to excess calories, F33.41 - Major depressive disorder, recurrent, in partial remission, F41.1 - Generalized anxiety disorder, I25.10 - Atherosclerotic heart disease of [place] coronary artery without angina pectoris, I42.9 - Cardiomyopathy, unspecified, I48.20 - Chronic atrial fibrillation, unspecified, I87.2 - Venous insufficiency (chronic) (peripheral), J44.9 - Chronic obstructive pulmonary disease, unspecified, M51.36 - Other intervertebral disc degeneration, lumbar region, M62.838 - Other muscle spasm, Z00.00 - Encounter for general adult medical examination without abnormal findings, Z68.42 - Body mass index [BMI] 45.0-49.9, adult, Z91.09 - Other allergy status, other than to drugs and biological substances Hemoglobin A1c Today E11.51 - Type 2 diabetes mellitus with diabetic peripheral angiopathy without gangrene, E13.9 - Other specified diabetes mellitus without complications, E66.01 - Morbid (severe) obesity due to excess calories, F33.41 - Major depressive disorder, recurrent, in partial remission, F41.1 - Generalized anxiety disorder, I25.10 - Atherosclerotic heart disease of [place] coronary artery without angina pectoris, I42.9 - Cardiomyopathy, unspecified, I48.20 - Chronic atrial fibrillation, unspecified, I87.2 - Venous insufficiency (chronic) (peripheral), J44.9 - Chronic obstructive pulmonary disease, unspecified, M51.36 - Other intervertebral disc degeneration, lumbar region, M62.838 - Other muscle spasm, Z00.00 - Encounter for general adult medical examination without abnormal findings, Z68.42 - Body mass index [BMI] 45.0-49.9, adult, Z91.09 - Other allergy status, other than to drugs and biological substances Lipid Panel Today E11.51 - Type 2 diabetes mellitus with diabetic peripheral angiopathy without gangrene, E13.9 - Other specified diabetes mellitus without complications, E66.01 - Morbid (severe) obesity due to excess calories, F33.41 - Major depressive disorder, recurrent, in partial remission, F41.1 - Generalized anxiety disorder, I25.10 - Atherosclerotic heart disease of [place] coronary artery without angina pectoris, I42.9 - Cardiomyopathy, unspecified, I48.20 - Chronic atrial fibrillation, unspecified, I87.2 - Venous insufficiency (chronic) (peripheral), J44.9 - Chronic obstructive pulmonary disease, unspecified, M51.36 - Other intervertebral disc degeneration, lumbar region, M62.838 - Other muscle spasm, Z00.00 - Encounter for general adult medical examination without abnormal findings, Z68.42 - Body mass index [BMI] 45.0-49.9, adult, Z91.09 - Other allergy status, other than to drugs and biological substances Coding Level of Care Code Est Pt Prev Care >65y(09666) Diagnoses Adult general medical exam Z00.00 Morbid obesity with BMI of 45.0-49.9, adult E66.01; Z68.42 Lumbar degenerative disc disease M51.36 Peripheral vascular disease in diabetes mellitus E11.51 Chronic stasis dermatitis I87.2 Chronic atrial fibrillation I48.20 Cardiomyopathy, unspecified type I42.9 Cardiomyopathy type: unspecified Chronic obstructive pulmonary disease, unspecified COPD type J44.9 COPD type: unspecified COPD Coronary artery disease involving [place] coronary artery of [place] heart without angina pectoris I25.10 Associated angina: without angina Coronary Disease-Associated Artery/Lesion type: [place] artery [place] vs. transplanted heart: [place] heart Allergy to environmental factors Z91.09 Anxiety, generalized F41.1 Recurrent major depressive disorder, in partial remission F33.41 Active/Remission status: in partial remission Diabetes 1.5, managed as type 2 E13.9 Muscle spasm M62.838 Additional Codes VIRGILIO-7 Assessment Billing - VIRGILIO-7 Assessment Tool: VIRGILIO-7 Assessment [id number] ([id number])
[2024-01-05 10:54] VITALS: BP 116/82; PULSE 85; O2SAT 96; BMI 44.8
== END 2024-01-05 11:09 | disposition home or self-care (01) ==
PROVIDERS: PCP Internal Medicine; Visit Provider Internal Medicine
DX: Z00.00 Encounter for general adult medical examination without abnormal findings (principal); E66.01 Morbid (severe) obesity due to excess calories; Z68.42 Body mass index [BMI] 45.0-49.9, adult; M51.36 Other intervertebral disc degeneration, lumbar region; E11.51 Type 2 diabetes mellitus with diabetic peripheral angiopathy without gangrene; I87.2 Venous insufficiency (chronic) (peripheral); I48.20 Chronic atrial fibrillation, unspecified; I42.9 Cardiomyopathy, unspecified; J44.9 Chronic obstructive pulmonary disease, unspecified; I25.10 Atherosclerotic heart disease of native coronary artery without angina pectoris; Z91.09 Other allergy status, other than to drugs and biological substances; F41.1 Generalized anxiety disorder
CPT/HCPCS: 99397

== ENCOUNTER 2024-01-05 11:11 | Outpatient (REF) | payer OTHER, SELFPAY ==
[2024-01-05 13:03] LABS: MANUAL DIFF FLAG NO
[2024-01-05 13:50] LABS: Basophils Absolute Auto 0.1 X10*3/uL (0.0-0.2); Basophils Percent Auto 0.8 % (0-2); Eosinophils Absolute Auto 0.2 X10*3/uL (0.0-0.4); Eosinophils Percent Auto 2.6 % (0-4); Hematocrit 41.9 % (42.0-52.0); Hemoglobin 14.1 g/dl (14.0-18.0); Imm Gran Abs Auto 0.02 X10*3/uL (0.00-0.03); Imm Gran Pct Auto 0.3 % (0.0-0.4); Lymphocytes Absolute Auto 1.9 X10*3/uL (1.2-4.9); Mean Corpuscular HGB Conc 33.7 g/dl (31.0-36.0); Mean Corpuscular Hemoglobin 32.2 pg (27.0-33.0); Mean Corpuscular Volume 95.7 fL (80.0-98.0); Mean Platelet Volume 11.7 fL (9.4-12.4); Monocytes Absolute Auto 0.4 X10*3/uL (0.1-1.2); Monocytes Percent Auto 6.1 % (2-11); Neutrophils Absolute Auto 4.6 x10*3/uL (2.0-8.3); Neutrophils Percent Auto 64.2 % (45-73); Platelet Count 222 X10*3/uL (160-400); Red Blood Count 4.38 X10*6/uL (4.60-5.80); Red Cell Distribution Width 12.3 % (11.0-16.0); White Blood Count 7.2 X10*3/uL (4.8-10.8)
[2024-01-05 13:52] LABS: Alanine Aminotransferase 19 U/L (0-40); Albumin Level 3.8 g/dL (3.5-5.0); Alkaline Phosphatase 71 U/L (39-117); Anion Gap 11 (12-20); Aspartate Amino Transferase 23 U/L (5-37); Bilirubin Total 0.8 mg/dL (0.0-1.0); Blood Urea Nitrogen 10 mg/dL (9-16); Calcium 9.2 mg/dL (8.4-10.2); Carbon Dioxide 33 mmol/L (22-29); Chloride 101 mmol/L (96-108); Cholesterol 140 mg/dL (<200); Estimated Glomerular Filt Rate > 60; Glucose Fasting 138 mg/dL (60-99); HDL Cholesterol 30 mg/dL (>40); LDL Cholesterol Calculated 65 mg/dL (<100); Potassium 3.9 mmol/L (3.3-5.1); Sodium 141 mmol/L (135-145); Total Protein 6.5 g/dL (6.5-8.0); Triglycerides 225 mg/dL (<150)
[2024-01-05 13:54] LABS: Estimated Average Glucose 143 mg/dL; Hemoglobin A1c % 6.6 % (<6.0)
[2024-01-05 14:08] LABS: TSH reflex Free T4 1.77 uIU/mL (0.32-4.0)
[2024-01-05 14:16] LABS: Creatinine Urine 80.33 mg/dL; Microalbumin Urine < 5.0 mg/L
== END 2024-01-05 11:12 | disposition home or self-care (01) ==
LOC: HO.HMGCLDS 11:11
PROVIDERS: PCP Internal Medicine; Visit Provider Internal Medicine
DX: Z00.00 Encounter for general adult medical examination without abnormal findings (principal); E66.01 Morbid (severe) obesity due to excess calories; Z68.42 Body mass index [BMI] 45.0-49.9, adult; M51.36 Other intervertebral disc degeneration, lumbar region; E11.51 Type 2 diabetes mellitus with diabetic peripheral angiopathy without gangrene; I87.2 Venous insufficiency (chronic) (peripheral); I48.20 Chronic atrial fibrillation, unspecified; I42.9 Cardiomyopathy, unspecified; J44.9 Chronic obstructive pulmonary disease, unspecified; I25.10 Atherosclerotic heart disease of native coronary artery without angina pectoris; Z91.09 Other allergy status, other than to drugs and biological substances; F41.1 Generalized anxiety disorder; F33.41 Major depressive disorder, recurrent, in partial remission; E13.9 Other specified diabetes mellitus without complications; M62.838 Other muscle spasm
CPT/HCPCS: 36415; 80053; 80061; 82043; 82570; 83036; 84443; 85025

== ENCOUNTER 2024-01-14 11:14 | Outpatient (AMB) | payer OTHER, SELFPAY ==
[2024-01-14 11:49] LABS: Prothrombin Time Whole Bld POC 31.2 sec (11.1-13.5); ~PT, ~INR - Anti Coag Clinic 2.6 (0.9-1.1)
--- NOTE | 2024-01-14 11:53 | MHC.OFFVISCO ---
Intake Intake Visit Reasons: Anticoagulation Allergies iodine [IODINE] Allergy (Intermediate, Verified 01/14/24 11:42) HIVES, bloating latex [LATEX] Allergy (Intermediate, Verified 01/14/24 11:42) HIVES shellfish derived [SHELLFISH DERIVED] Allergy (Intermediate, Verified 01/14/24 11:42) ANAPHYLAXIS Medication List - Last Reconciled 01/14/24 by Brittany German, JESUS acetaminophen ER 1,300 mg PO DAILY atorvastatin 10 mg PO BEDTIME bupropion HCl 100 mg PO BEDTIME bupropion HCl 200 mg PO DAILY carvedilol 6.25 mg See Protocol PO BID 90 days cetirizine 10 mg PO DAILY cholecalciferol (vitamin D3) (Vitamin D3) 50 mcg PO DAILY colchicine (Colcrys) 0.6 mg PO DAILY 90 days digoxin 250 mcg PO 3XW 90 days diphenhydramine HCl (Allergy (diphenhydramine)) 25 mg orally 2 TABS AT HS PRN; duloxetine 40 mg PO DAILY furosemide 20 mg PO BID gabapentin 300 mg PO BEDTIME gabapentin 100 mg PO BID losartan 12.5 mg (1/2 x 25 mg) PO DAILY 90 days multivitamin 1 tab PO DAILY omega-3 fatty acids 500 mg PO DAILY risperidone 1 mg PO BEDTIME sennosides-docusate sodium 8.6-50 mg (Senokot-S) 2 tab-caps (2 x 8.6-50 mg) PO BEDTIME tamsulosin (Flomax) 0.8 mg (2 x 0.4 mg) PO BEDTIME tizanidine 4 mg PO BEDTIME warfarin 4 mg See Protocol PO DAILY Nursing Note INR: 2.6 in therapeutic range of 2-3 Medications and supplements reviewed No changes in health, diet, medications, or supplements, Denies any signs and symptoms of bleeding or bruising or clotting. Bleeding, bruising, clotting discussed Nutritional guidance given to cont to balance reds and greens Dose: 4mg daily F/U INR: 3 weeks Patient verbalizes understanding of instructions given Anti-Coag Initial Assessment Social Hx Patient Tobacco Use Status: Former Tobacco user alcohol intake: never Coding Level of Care Code Est Patient Level 1 Diagnoses Current use of anticoagulant therapy Z79.01 Assessment & Plan Assessment & Plan (1) Current use of anticoagulant therapy: Code(s): Z79.01 - senior care (current) use of anticoagulants Category: Medical
== END 2024-01-14 11:55 | disposition home or self-care (01) ==
LOC: HO.ACS 11:14
PROVIDERS: PCP Internal Medicine; Visit Provider Internal Medicine
DX: Z79.01 Long term (current) use of anticoagulants (principal)

== ENCOUNTER → 2024-01-14 11:14 | Outpatient (BNVA) | payer OTHER, SELFPAY | PROVIDERS: PCP Internal Medicine; Visit Provider Internal Medicine | DX: I26.99 Other pulmonary embolism without acute cor pulmonale (principal); Z79.01 Long term (current) use of anticoagulants; Z51.81 Encounter for therapeutic drug level monitoring | CPT/HCPCS: 85610; 99211 ==

== ENCOUNTER 2024-02-03 12:58 | Outpatient (AMB) | payer SELFPAY ==
[2024-02-03 13:08] LABS: Prothrombin Time Whole Bld POC 22.7 sec (11.1-13.5); ~PT, ~INR - Anti Coag Clinic 1.9 (0.9-1.1)
--- NOTE | 2024-02-03 13:18 | MHC.OFFVISCO ---
Intake Intake Visit Reasons: Anticoagulation Allergies iodine [IODINE] Allergy (Intermediate, Verified 02/03/24 13:01) HIVES, bloating latex [LATEX] Allergy (Intermediate, Verified 02/03/24 13:01) HIVES shellfish derived [SHELLFISH DERIVED] Allergy (Intermediate, Verified 02/03/24 13:01) ANAPHYLAXIS Medication List - Last Reconciled 02/03/24 by Priscila Gilliland RN acetaminophen ER 1,300 mg PO DAILY atorvastatin 10 mg PO BEDTIME bupropion HCl 100 mg PO BEDTIME bupropion HCl 200 mg PO DAILY carvedilol 6.25 mg See Protocol PO BID 90 days cetirizine 10 mg PO DAILY cholecalciferol (vitamin D3) (Vitamin D3) 50 mcg PO DAILY colchicine (Colcrys) 0.6 mg PO DAILY 90 days digoxin 250 mcg PO 3XW 90 days diphenhydramine HCl (Allergy (diphenhydramine)) 25 mg orally 2 TABS AT HS PRN; duloxetine 40 mg PO DAILY furosemide 20 mg PO BID gabapentin 300 mg PO BEDTIME gabapentin 100 mg PO BID losartan 12.5 mg (1/2 x 25 mg) PO DAILY 90 days multivitamin 1 tab PO DAILY omega-3 fatty acids 500 mg PO DAILY risperidone 1 mg PO BEDTIME sennosides-docusate sodium 8.6-50 mg (Senokot-S) 2 tab-caps (2 x 8.6-50 mg) PO BEDTIME tamsulosin (Flomax) 0.8 mg (2 x 0.4 mg) PO BEDTIME tizanidine 4 mg PO BEDTIME warfarin 4 mg See Protocol PO DAILY Nursing Note trying to get his [facility] back - missed the renewal date INR: 1.9 ALMOST therapeutic range- MISSED A DOSE- MADE UP 4MG Medications and supplements reviewed No changes in health, diet, medications, or supplements, Denies any signs and symptoms of bleeding or bruising or clotting. Bleeding, bruising, clotting discussed Nutritional guidance given Dose: 6MG X 1 DAY/ 4MG X 6 DAYS F/U INR: 3 WEEKS Patient verbalizes understanding of instructions given Anti-Coag Initial Assessment Social Hx Patient Tobacco Use Status: Former Tobacco user alcohol intake: never Coding Level of Care Code Est Patient Level 1 Diagnoses Current use of anticoagulant therapy Z79.01 Assessment & Plan Assessment & Plan (1) Current use of anticoagulant therapy: Code(s): Z79.01 - skilled nursing (current) use of anticoagulants Category: Medical
== END 2024-02-03 13:21 | disposition home or self-care (01) ==
LOC: HO.ACS 12:58
PROVIDERS: PCP Internal Medicine; Visit Provider Internal Medicine
DX: Z79.01 Long term (current) use of anticoagulants (principal)

== ENCOUNTER → 2024-02-03 12:58 | Outpatient (BNVA) | payer MEDICARE, MEDICAID, SELFPAY | PROVIDERS: PCP Internal Medicine; Visit Provider Internal Medicine | DX: I26.99 Other pulmonary embolism without acute cor pulmonale (principal); Z51.81 Encounter for therapeutic drug level monitoring; Z79.01 Long term (current) use of anticoagulants | CPT/HCPCS: 85610; 99211 ==

== ENCOUNTER 2024-03-20 10:04 | Emergency (ER) | payer MEDICARE, OTHER, SELFPAY ==
--- NOTE | ~2024-03-20 | US_ITS ---
EXAMINATION: US TRIPLEX LOWER EXTREMITY, RIGHT CLINICAL INFORMATION: Pitting edema, shortness of breath COMPARISON: Right lower extremity duplex on 09/21/2018 TECHNIQUE: Color-flow triplex imaging with spectral analysis and compression Doppler were performed on the right lower extremity. FINDINGS: Respiratory variation, normal compression and augmented flow are noted throughout the right lower extremity. The visualized common femoral vein, superficial femoral vein, profunda femoral vein, popliteal vein and midcalf peroneal and posterior tibial venous segments show no evidence of deep venous thrombosis. There is no Manzanares's cyst. Incidental note is made of superficial venous reflux in the mid calf. US/US venous duplex LE RT IMPRESSION: No evidence of deep venous thrombosis involving the right lower extremity. Consider nonemergent superficial venous evaluation. Electronically signed by: Brandi Howe MD 03/20/2024 12:06 PM EDT
--- NOTE | ~2024-03-20 | XR_ITS ---
EXAMINATION: XR CHEST CLINICAL INFORMATION: Shortness of breath COMPARISON: Chest x-ray on 08/12/2023 TECHNIQUE: Frontal view of the chest was obtained. FINDINGS: No significant abnormality is noted involving the heart, lungs, mediastinum, bony thorax or soft tissues. XR/XR chest 1V IMPRESSION: Unremarkable examination. Electronically signed by: Brandi Howe MD 03/20/2024 12:06 PM EDT RP
--- NOTE | ~2024-03-20 | CT_ITS ---
EXAMINATION: CT ANGIOGRAM OF THE CHEST WITH AND WITHOUT CONTRAST (CT PULMONARY ANGIOGRAM FOR PE) CLINICAL INFORMATION: sob, subtheraputic INR. A fib COMPARISON: CT chest with contrast December 22, 2022 TECHNIQUE: Prior to contrast administration, noncontrast localization images were obtained. Subsequently, multidetector volumetric imaging was performed from the thoracic inlet to below the diaphragms following the administration of 65 mL Omnipaque 350 intravenous contrast. No contrast reaction reported. Sagittal, coronal, and MIP oblique sagittal reformatted images were obtained on the CT workstation, uploaded to PACS, and reviewed. Total exam dose-length product 580 mGy-cm FINDINGS: QUALITY OF STUDY/CONTRAST BOLUS: Suboptimal. PULMONARY ARTERIES: No central or lobar pulmonary embolus. This study is nondiagnostic at the level of the segmental and subsegmental pulmonary arteries. THORACIC AORTA: Ascending aorta is enlarged measuring 4.6 x 4.4 cm. LUNG: No focal consolidation, nodules or masses. PLEURA: No pleural effusion or pneumothorax. MEDIASTINUM: Mild cardiomegaly. Trace pericardial effusion. No mediastinal or hilar lymphadenopathy. No evidence of septal bowing or right heart strain. CHEST WALL/AXILLA: No axillary or internal mammary lymphadenopathy. OSSEOUS STRUCTURES: No acute or suspicious osseous abnormality. UPPER ABDOMEN: Unremarkable. No reflux of contrast into the hepatic veins to suggest elevated right heart pressures. CT/CT angio chest PE protocol IMPRESSION: 1. No central or lobar pulmonary embolus. This study is nondiagnostic at the level of the segmental and subsegmental pulmonary arteries. 2. The ascending aorta is enlarged measuring 4.6 x 4.4 cm on this non-gated study. VTE: negative Electronically signed by: Sy Argueta MD 03/20/2024 01:36 PM EDT
--- NOTE | 2024-03-20 10:37 | ECG_ITS ---
Test Reason : SOB Blood Pressure : / mmHG Vent. Rate : 093 BPM Atrial Rate : 000 BPM P-R Int : 000 ms QRS Dur : 098 ms QT Int : 398 ms P-R-T Axes : 000 -37 054 degrees QTc Int : 494 ms Atrial fibrillation Left axis deviation Prolonged QT Abnormal ECG When compared with ECG of 12-AUG-2023 14:07, QRS axis Shifted left Referred By: Darby Rodriguez Electronically Signed By:ADITYA LUCAS
[2024-03-20 11:10] VITALS: BP 100/55; BP 93/42; PULSE 70; PULSE 94; RESP 24; TEMP 35.5; BMI 47.2
[2024-03-20 11:20] VITALS: BP 99/57; PULSE 103; RESP 22; O2SAT 96
[2024-03-20 11:20] LABS: MANUAL DIFF FLAG NO
[2024-03-20 11:21] LABS: Basophils Absolute Auto 0.1 X10*3/uL (0.0-0.2); Basophils Percent Auto 0.7 % (0-2); Eosinophils Absolute Auto 0.2 X10*3/uL (0.0-0.4); Eosinophils Percent Auto 2.4 % (0-4); Hematocrit 42.2 % (42.0-52.0); Hemoglobin 14.5 g/dl (14.0-18.0); Imm Gran Abs Auto 0.03 X10*3/uL (0.00-0.03); Imm Gran Pct Auto 0.4 % (0.0-0.4); Lymphocytes Absolute Auto 1.4 X10*3/uL (1.2-4.9); Mean Corpuscular HGB Conc 34.4 g/dl (31.0-36.0); Mean Corpuscular Hemoglobin 32.5 pg (27.0-33.0); Mean Corpuscular Volume 94.6 fL (80.0-98.0); Monocytes Absolute Auto 0.6 X10*3/uL (0.1-1.2); Neutrophils Absolute Auto 5.8 x10*3/uL (2.0-8.3); Neutrophils Percent Auto 72.5 % (45-73); Platelet Count 229 X10*3/uL (160-400); Red Blood Count 4.46 X10*6/uL (4.60-5.80); Red Cell Distribution Width 12.5 % (11.0-16.0); White Blood Count 8.1 X10*3/uL (4.8-10.8)
--- NOTE | 2024-03-20 11:23 | PC.NURSE ---
resfuses red socks
[2024-03-20 11:28] LABS: INTERNATIONAL NORM RATIO 1.2 (0.9-1.1); Prothrombin Time 14.7 SEC (11.1-13.3)
[2024-03-20 11:30] LABS: D Dimer High Sensitivity 211 NG/ML
[2024-03-20 11:35] LABS: Alanine Aminotransferase 26 U/L (0-40); Albumin Level 3.9 g/dL (3.5-5.0); Alkaline Phosphatase 81 U/L (39-117); Anion Gap 15 (12-20); Aspartate Amino Transferase 22 U/L (5-37); Bilirubin Direct 0.2 mg/dL (0.0-0.5); Bilirubin Total 0.4 mg/dL (0.0-1.0); Blood Urea Nitrogen 28 mg/dL (9-16); Calcium 9.4 mg/dL (8.4-10.2); Carbon Dioxide 23 mmol/L (22-29); Chloride 104 mmol/L (96-108); Creatinine Clr Calc Pharmacy 94.6; Estimated Glomerular Filt Rate > 60; Glucose Random 162 mg/dL (60-115); Magnesium 2.4 mg/dL (1.6-2.6); Potassium 4.1 mmol/L (3.3-5.1); Sodium 138 mmol/L (135-145); Total Protein 6.9 g/dL (6.5-8.0)
[2024-03-20 11:40] LABS: B Type Natriuretic Peptide 51 pg/mL (<100)
[2024-03-20 11:57] LABS: Influenza A PCR NEGATIVE (Negative); Influenza B PCR NEGATIVE (Negative); Resp Syncy Virus RNA Qual PCR NEGATIVE (Negative); SARS COV2 PCR INHOUSE NEGATIVE (Negative)
--- NOTE | 2024-03-20 12:14 | ED_ITS ---
HPI - SOB/Dyspnea General Chief Complaint: Dyspnea Stated Complaint: SOB, 95% PER EMS Time Seen by Provider: 03/20/24 10:15 Source: patient, EMS, RN notes reviewed and old records reviewed Mode of arrival: EMS History of Present Illness ED Provider: Darby Rodriguez PA-C HPI Narrative: 73-year-old male with a past medical history of AFib on Coumadin, CHF, NOEMI on CPAP, COPD, CAD, HLD, HTN, diabetes, cardiomyopathy, presenting to the ED via EMS complaining of increasing SOB x2 weeks worse with lying flat. Reports inability to sleep. Admits to worsening right-sided LE edema. Also reports left-sided chest wall discomfort, worse with deep breathing. Denies fever, chills, cough, abdominal pain, nausea/vomiting. Reports compliance with Coumadin however does not have INR checked Related Data Home Medications ?Medication ?Instructions ?Recorded ?Confirmed multivitamin 1 tab PO DAILY 10/22/20 02/03/24 acetaminophen 650 mg 1,300 mg PO DAILY 08/05/21 02/03/24 tablet,extended release omega-3 fatty acids 500 mg capsule 500 mg PO DAILY 08/05/21 02/03/24 gabapentin 100 mg capsule 100 mg PO BID 09/25/22 02/03/24 duloxetine 20 mg capsule,delayed 40 mg PO DAILY 10/16/22 02/03/24 release bupropion HCl 100 mg tablet 200 mg PO DAILY 11/10/22 02/03/24 bupropion HCl 100 mg tablet 100 mg PO BEDTIME 12/23/22 02/03/24 cholecalciferol (vitamin D3) 25 50 mcg PO DAILY 12/23/22 02/03/24 mcg (1,000 unit) tablet (Vitamin D3) gabapentin 300 mg capsule 300 mg PO BEDTIME 12/23/22 02/03/24 diphenhydramine HCl 25 mg capsule 25 mg PO .COMPLEX PRN Allergy 08/02/23 02/03/24 (Allergy (diphenhydramine)) Symptoms warfarin 4 mg tablet 4 mg PO DAILY 08/12/23 02/03/24 risperidone 1 mg tablet 1 mg PO BEDTIME 01/14/24 02/03/24 Previous Rx's ?Medication ?Instructions ?Recorded tizanidine 4 mg tablet 4 mg PO BEDTIME #90 tabs 06/02/23 furosemide 20 mg tablet 20 mg PO BID #90 tabs 10/15/23 carvedilol 6.25 mg tablet 6.25 mg PO BID 90 days #180 tabs 10/21/23 digoxin 250 mcg (0.25 mg) tablet 250 mcg PO 3XW 90 days #39 tabs 10/21/23 sennosides 8.6 mg-docusate sodium 2 tab-cap (2 x 8.6-50 mg) PO 10/21/23 50 mg tablet (Senokot-S) BEDTIME #60 tabs atorvastatin 10 mg tablet 10 mg PO BEDTIME #90 tabs 11/29/23 losartan 25 mg tablet 12.5 mg (1/2 x 25 mg) PO DAILY 90 01/31/24 days #45 tabs cetirizine 10 mg tablet 10 mg PO DAILY #90 tabs 02/22/24 colchicine 0.6 mg tablet (Colcrys) 0.6 mg PO DAILY 90 days #90 tabs 03/16/24 tamsulosin 0.4 mg capsule (Flomax) 0.8 mg (2 x 0.4 mg) PO BEDTIME #90 03/17/24 caps Allergies Allergy/AdvReac Type Severity Reaction Status Date / Time iodine [IODINE] Allergy Intermediate HIVES, Verified 03/20/24 11:18 bloating latex [LATEX] Allergy Intermediate HIVES Verified 03/20/24 11:18 shellfish derived Allergy Intermediate ANAPHYLAXIS Verified 03/20/24 11:18 [SHELLFISH DERIVED] Review of Systems 2 Review of Systems: Yes all other systems are reviewed and are negative Constitutional: Constitutional: Reports as per [facility] Past Medical History Attestation statement: The following information was validated with the patient. Source: old records reviewed Medical History Heart failure with reduced ejection fraction Chest pain, pleuritic Back pain Dyspnea NOEMI on CPAP COPD (chronic obstructive pulmonary disease) CAD (coronary artery disease) HLD (hyperlipidemia) HTN (hypertension) Diabetes Obstructive sleep apnea Morbid obesity Cardiomyopathy Persistent atrial fibrillation Current use of anticoagulant therapy Surgical History History of knee surgery History of ankle surgery Family History Family History Father HTN (hypertension) Diabetes mellitus Cardiac disease Bone cancer Substance use disorder Mother HTN (hypertension) Lung cancer Social History Social History Household Members: None Housing: Apartment Do you presently have 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) Alcohol intake: never Comment: pt refusing bed alarm and red socks Patient Tobacco Use Status: Former Tobacco user Years Smoked: 30 yrs Smoked in Last 30 Days: No e-Cigarette/Vaping Use: Never Used Second Hand Smoke Exposure: No Advance Directives: No service: No Current occupational status: retired and disabled Cognitive needs: No Hearing needs: No Vision needs: Yes Physical Exam 2 Vital Signs: Vital Signs: Last Vital Signs Temp 96 F L 03/20/24 11:10 Pulse 98 03/20/24 13:59 Resp 18 03/20/24 13:59 BP 115/68 03/20/24 13:59 Pulse Ox 97 03/20/24 13:59 O2 Del Method Room Air 03/20/24 13:59 BMI result Body Mass Index 47.2 Const: General: cooperative, healthy appearing and no acute distress O rientation/consciousness: patient oriented x3 Limitations: no limitations HEENT: Head: Yes normal to inspection and Yes atraumatic Ears: hearing grossly normal bilaterally General nose exam: Normal external nose present Face and sinus: Yes normal facial exam Eyes: General: appearance normal, both eyes and all related structures EOM: EOMs intact bilaterally Neck: Neck: Yes normal visual inspection and Yes no meningeal signs Chest: Other: No rash/erythema or ecchymosis Chest palpation & inspection: tenderness (Reproducible left-sided chest wall tenderness) Resp: Effort & Inspection: normal respiratory effort and no respiratory distress Auscultation: diminished lung sounds bilateral in the lower lung sood Cardio: Rate: regular rate Heart sounds: S1 normal heart sound present and S2 normal heart sound present GI: Inspection: Yes normal to inspection Palpation (GI): Soft to palpation, nontender, no guarding and not rigid : General: Yes no CVA tenderness Back/Spine/Pelvis: Back: no CVA tenderness Skin: Rashes: no rashes Wounds: no wounds Neuro: General: patient oriented x3, tone normal and no meningeal signs C ranial nerves: Yes CN's II-XII intact bilaterally Gait exam (Neuro): Normal gait present Extrem: Other: + bilateral LE pitting edema > RLE General: Yes pedal edema Course Course Course Narrative: -1223--no leukocytosis. H / H stable. INR 1.2 > subtherapeutic -troponin 21 > will obtain 3 hour repeat. D-dimer 211 > PE unlikely -viral testing negative XR chest 1V IMPRESSION: Unremarkable examination. US venous duplex LE RT IMPRESSION: No evidence of deep venous thrombosis involving the right lower extremity. Consider nonemergent superficial venous evaluation. > due to pleuritic CP, vital sign abnormalities, subtherapeutic INR will obtain CTA to rule out PE. Also give 40 mg of IV Lasix. Case discussed with Dr. Narayan CT angio chest PE protocol IMPRESSION: 1. No central or lobar pulmonary embolus. This study is nondiagnostic at the level of the segmental and subsegmental pulmonary arteries. 2. The ascending aorta is enlarged measuring 4.6 x 4.4 cm on this non-gated study. VTE: negative -COVID/flu/RSV negative -1613--repeat troponin equivocal, VT unlikely >> recommended close cardiology and pulmonology follow-up. Also discussed subtherapeutic INR Results discussed with patient including worrisome signs and symptoms and strict return precautions, and when to return to the emergency department. They verbalized understanding and feel safe for discharge at this time. Medications Administered Discontinued Medications Generic Name Dose Route Start Last Admin Trade Name Freq PRN Reason Stop Dose Admin Furosemide 40 mg 03/20/24 12:25 03/20/24 13:57 Furosemide 40 Mg/4 Ml Vial IVPUSH 03/20/24 12:26 40 mg STAT STA Administration Protocol Iohexol 100 ml 03/20/24 13:20 03/20/24 13:21 Iohexol 350 Mg/Ml 100 Ml Infus..Btl IV 03/20/24 13:21 65 ml ONCE ONE Administration Medical Decision Making Medical Decision Making [facility] Narrative: 73-year-old male with a past medical history of AFib on Coumadin, CHF, NOEMI on CPAP, COPD, CAD, HLD, HTN, diabetes, cardiomyopathy, presenting to the ED via EMS complaining of increasing SOB x2 weeks worse with lying flat. On exam tachypneic, NAD, talking in complete sentences, diminished lung sounds bibasilarly, LE pitting edema noted greater on the right. Concern for ACS vs CHF vs COPD vs DVT/PE. Lower suspicion for dissection or pneumonia/pneumothorax Low suspicion for severe sepsis at this time Plan: EKG, labs, CXR, viral testing, US Please refer to course for remaining clinical decision making, interpretation of labs/imaging results, and discussions with consultants and/or family members. Differential Diagnosis Differential Diagnoses: The differential diagnosis associated with the presentation includes As above Admission/Observation Consideration of admission/observation: Escalation of care including admission/observation considered Lab Data MDM Lab Attestation statement: I reviewed the patient's lab results. 03/20/24 11:14 03/20/24 11:14 Labs: Lab Results 03/20/24 03/20/24 Range/Units 11:14 15:32 WBC 8.1 (4.8-10.8) X10*3/uL RBC 4.46 L (4.60-5.80) X10*6/uL Hgb 14.5 (14.0-18.0) g/dl Hct 42.2 (42.0-52.0) % MCV 94.6 (80.0-98.0) fL MCH 32.5 (27.0-33.0) pg MCHC 34.4 (31.0-36.0) g/dl RDW 12.5 (11.0-16.0) % Plt Count 229 (160-400) X10*3/uL MPV 11.0 (9.4-12.4) fL Immature Gran % (Auto) 0.4 (0.0-0.4) % Neut % (Auto) 72.5 (45-73) % Lymph % (Auto) 17.0 L (20-40) % [place] % (Auto) 7.0 (2-11) % Eos % (Auto) 2.4 (0-4) % Baso % (Auto) 0.7 (0-2) % Lymph # (Auto) 1.4 (1.2-4.9) X10*3/uL [place] # (Auto) 0.6 (0.1-1.2) X10*3/uL Eos # (Auto) 0.2 (0.0-0.4) X10*3/uL Baso # (Auto) 0.1 (0.0-0.2) X10*3/uL Abs Immat Gran (auto) 0.03 (0.00-0.03) X10*3/uL Absolute Neuts (auto) 5.8 (2.0-8.3) x10*3/uL Absolute Nucleated RBC 0.000 (0.0-0.012) X10*3/uL Nucleated RBC % (auto) 0.0 (0.0-0.2) /100WBC PT 14.7 H D (11.1-13.3) SEC INR 1.2 H (0.9-1.1) D-Dimer High Sensitivty 211 NG/ML Sodium 138 (135-145) mmol/L Potassium 4.1 (3.3-5.1) mmol/L Chloride 104 (96-108) mmol/L Carbon Dioxide 23 (22-29) mmol/L Anion Gap 15 (12-20) BUN 28 H (9-16) mg/dL Creatinine 1.11 (0.5-1.4) mg/dL Estim Creat Clear Calc 94.6 Estimated GFR > 60 Random Glucose 162 H (60-115) mg/dL Calcium 9.4 (8.4-10.2) mg/dL Magnesium 2.4 (1.6-2.6) mg/dL Total Bilirubin 0.4 (0.0-1.0) mg/dL Direct Bilirubin 0.2 (0.0-0.5) mg/dL AST 22 (5-37) U/L ALT 26 (0-40) U/L Alkaline Phosphatase 81 (39-117) U/L Troponin I High Sens 21.0 20.5 (<3.5-35.0) ng/L B-Natriuretic Peptide 51 (<100) pg/mL Total Protein 6.9 (6.5-8.0) g/dL Albumin 3.9 (3.5-5.0) g/dL Influenza Type A (PCR) NEGATIVE (Negative) Influenza Type B (PCR) NEGATIVE (Negative) RSV RNA Qual (PCR) NEGATIVE (Negative) SARS-CoV-2 RNA (RT-PCR) NEGATIVE (Negative) Independent Interpretation I performed an independent interpretation of an: EKG (My interpretation EKG AFib rate of 93. QTC 494. QRS axis shifted left when compared to prior. No STEMI ) and Plain X-Ray Radiology Impression Discussion of test interpretation with radiology: I have reviewed the radiologist's reading. Independent Historian Clinical information obtained from an independent historian. History obtained from or confirmed by: EMS External Record Review External record reviewed: Inpatient record, Office record, Outpatient record, Prior outpatient labs, Prior outpatient radiology, Primary care record and Outside ED record Tests considered The following testing was considered but not selected: As above Prescription Management I considered prescription management with: Other Chronic Conditions Patient?s care impacted by: Diabetes, Hypertension and Other Discharge Plan Discharge Clinical Impression: Orthopnea, Subtherapeutic international normalized ratio (INR) Patient Disposition: Still a Patient Instructions: Dyspnea (ED) Additional Instructions: Your blood work and imaging studies are reassuring Please continue to take all of your home medications, do not miss any doses of your Coumadin. 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 If symptoms persist or worsen return to the emergency department Prescriptions: No Action omega-3 fatty acids 500 mg capsule 500 mg PO DAILY acetaminophen 650 mg tablet extended release 1,300 mg PO DAILY Rx Instructions: TAKES IN AM tizanidine 4 mg tablet 4 mg PO BEDTIME Qty: 90 3RF sennosides-docusate sodium [Senokot-S] 8.6-50 mg tablet 2 tab-cap PO BEDTIME Qty: 60 0RF digoxin 250 mcg (0.25 mg) tablet 250 mcg PO 3XW 90 Days Qty: 39 3RF Rx Instructions: 250 mcg orally MWF; carvedilol 6.25 mg tablet 6.25 mg PO BID 90 Days Qty: 180 3RF Protocol: Hold for SBP/HR < HOLD for SBP < : 90 HOLD for HR < : 60 atorvastatin 10 mg tablet 10 mg PO BEDTIME Qty: 90 0RF losartan 25 mg tablet 12.5 mg PO DAILY 90 Days Qty: 45 0RF cetirizine 10 mg tablet 10 mg PO DAILY Qty: 90 3RF colchicine [Colcrys] 0.6 mg tablet 0.6 mg PO DAILY 90 Days Qty: 90 1RF tamsulosin [Flomax] 0.4 mg capsule 0.8 mg PO BEDTIME Qty: 90 0RF multivitamin Tablet 1 tab PO DAILY bupropion HCl 100 mg tablet 100 mg PO BEDTIME gabapentin 300 mg capsule 300 mg PO BEDTIME cholecalciferol (vitamin D3) [Vitamin D3] 25 mcg (1,000 unit) Tablet 50 mcg PO DAILY warfarin 4 mg tablet 4 mg PO DAILY Protocol: Dose Management Condition: Wednesday (Week One) Dose/Route: 4 mg Instruction: 1 x 4 mg tablet Condition: Wednesday Dose/Route: 4 mg Instruction: 1 x 4 mg tablet Condition: Wednesday Dose/Route: 4 mg Instruction: 1 x 4 mg tablet Condition: Wednesday Dose/Route: 4 mg Instruction: 1 x 4 mg tablet Condition: Dose/Route: 6 mg Instruction: 1.5 x 4 mg tablets Condition: Wednesday Dose/Route: 4 mg Instruction: 1 x 4 mg tablet Condition: Wednesday Dose/Route: 4 mg Instruction: 1 x 4 mg tablet Condition: Wednesday (Week Two) Dose/Route: 4 mg Instruction: 1 x 4 mg tablet Condition: Wednesday Dose/Route: 4 mg Instruction: 1 x 4 mg tablet Condition: Wednesday Dose/Route: 4 mg Instruction: 1 x 4 mg tablet Condition: Wednesday Dose/Route: 4 mg Instruction: 1 x 4 mg tablet Condition: Dose/Route: 4 mg Instruction: 1 x 4 mg tablet Condition: Wednesday Dose/Route: 4 mg Instruction: 1 x 4 mg tablet Condition: Wednesday Dose/Route: 4 mg Instruction: 1 x 4 mg tablet Protocol Text: Adjustment Start Date: 02/03/24 INR Value: 1.9 INR Date: 02/03/24 Recheck Date: 02/24/24 Additional Instructions: REVIEW FOOD LIST WEEKLY,EAT A MIX OF FRUITS AND VEGETABLES THAT YOU TOLERATE, DO NOT EAT ANY GREENS TODAY ( OR BLUEBERRIES OR CHOCOLATE TODAY THEY LOWER YOUR INR) gabapentin 100 mg capsule 100 mg PO BID duloxetine 20 mg capsule,delayed release(DR/EC) 40 mg PO DAILY bupropion HCl 100 mg tablet 200 mg PO DAILY diphenhydramine HCl [Allergy (diphenhydramine)] 25 mg capsule 25 mg PO .COMPLEX PRN (Reason: Allergy Symptoms) Rx Instructions: 25 mg orally 2 TABS AT HS PRN; furosemide 20 mg tablet 20 mg PO BID Qty: 90 5RF risperidone 1 mg tablet 1 mg PO BEDTIME [place] [facility] [place] [facility] [place] [facility] [place] Group] Jaylon Carvajal MD [Primary Care Provider] - 2 days Print Language: Telugu
[2024-03-20] MEDS: iohexoL 350 MG/ML 100 ML INFUS..BTL IV (13:21)
[2024-03-20 13:57] VITALS: BP 115/68
[2024-03-20] MEDS: Furosemide 40 MG/4 ML VIAL IVPUSH (13:57)
[2024-03-20 13:59] VITALS: BP 115/68; PULSE 98; RESP 18; O2SAT 97
[2024-03-20 16:07] LABS: Troponin-I High Sensitivity 20.5 ng/L (<3.5-35.0)
[2024-03-20 17:19] VITALS: BP 93/60; PULSE 68; RESP 17; O2SAT 92
[2024-03-20 17:35] VITALS: BP 93/60; PULSE 68; RESP 17; TEMP 36.8; O2SAT 92
== END 2024-03-20 17:37 | disposition home or self-care (01) ==
PROVIDERS: Physician Assistant; Emergency Provider Emergency Medicine; PCP Internal Medicine
DX: R06.01 Orthopnea (principal); R06.02 Shortness of breath; I48.91 Unspecified atrial fibrillation; Z79.01 Long term (current) use of anticoagulants; I11.0 Hypertensive heart disease with heart failure; I50.9 Heart failure, unspecified; E11.8 Type 2 diabetes mellitus with unspecified complications; J44.9 Chronic obstructive pulmonary disease, unspecified; R60.9 Edema, unspecified; Z79.899 Other long term (current) drug therapy; Z03.818 Encounter for observation for suspected exposure to other biological agents ruled out
CPT/HCPCS: 0241U; 36415; 71045; 71275; 80048; 80076; 83735; 83880; 84484; 85025; 85379; 85610; 93005; 93971; 96374; 99284; J1940; Q9967

== ENCOUNTER 2024-04-03 12:53 | Outpatient (AMB) | payer MEDICARE, MEDICAID, SELFPAY ==
--- NOTE | 2024-04-03 12:54 | A.OFFVIS_ITS ---
Vital Signs 04/03/24 13:00 Height 6 ft Weight 331 lb 12.731 oz BMI 45.0 BP 112/74 Blood Pressure Location Rt brachial Position Sitting Pulse 100 Pulse Source Pulse Oximeter Pulse Oximetry (%) 97 Oxygen Delivery Method Room Air Intake Visit Reasons: Shortness of breath ([facility]) Allergies iodine [IODINE] Allergy (Intermediate, Verified 04/03/24 13:04) HIVES, bloating latex [LATEX] Allergy (Intermediate, Verified 04/03/24 13:04) HIVES shellfish derived [SHELLFISH DERIVED] Allergy (Intermediate, Verified 04/03/24 13:04) ANAPHYLAXIS HPI HPI Shortness of breath ([facility]): Details: Misbah is a pleasant 73-year-old male, former smoker, with underlying AFib on Coumadin, CHF, NOEMI on CPAP, COPD, CAD, HLD, HTN, diabetes, cardiomyopathy LVEF 10-15%. He is under the care of Dr. Loomis and presents today after recent ED evaluation. He presented to [facility] on 03/20 with worsening orthopnea and dyspnea as well as right-sided LE edema and left-sided chest wall discomfort, worse with deep inspiration. Ddimer elevated 211 CTA performed negative for PE. Respiratory panel negative, no leukocytosis. He was given IV lasix and discharged with improvements in symptoms. Of note, he was also evaluated at [facility] on 03/09 for similar symptoms with reportedly no interventions performed. He reports since discharge he feels back to baseline, likely patient was volume overloaded despite taking lasix QD. He does not have follow up scheduled with cardiology. Reviewed CPAP compliance with patient. He reportedly has been using on a daily basis for >4 hours, 70% of the time. Will need to confirm with compliance report. Discussed possibly sending for updated sleep study as patient has reportedly lost 90 lbs since last sleep study. [facility] Medical History Heart failure with reduced ejection fraction Chest pain, pleuritic Back pain Dyspnea NOEMI on CPAP COPD (chronic obstructive pulmonary disease) CAD (coronary artery disease) HLD (hyperlipidemia) HTN (hypertension) Diabetes Obstructive sleep apnea Morbid obesity Cardiomyopathy Persistent atrial fibrillation Current use of anticoagulant therapy Surgical History History of knee surgery History of ankle surgery Family History Father HTN (hypertension) Diabetes mellitus Cardiac disease Bone cancer Substance use disorder Mother HTN (hypertension) Lung cancer Social History Household Members: None Housing: Apartment Do you presently have visiting nurse or other home services: Yes ([employer]) Alcohol intake: never Comment: pt refusing bed alarm and red socks Patient Tobacco Use Status: Former Tobacco user Years Smoked: 30 yrs e-Cigarette/Vaping Use: Never Used Second Hand Smoke Exposure: No service: No Current occupational status: retired and disabled Cognitive needs: No Hearing needs: No Vision needs: Yes Review of Systems Const Denies chills, Denies excessive sweating, Denies fever(s), Denies headache(s) and Denies night sweats Eyes Denies dry eyes, Denies irritation and Denies itchy eyes ENT Reports Normal hearing present, Denies headache(s), Denies nasal congestion, Denies nasal discharge, Denies post nasal drip and Denies sore throat Card Denies chest pain, Denies chest pain at rest, Denies chest pain with activity and Denies claudication Resp Denies chest congestion, Denies excessive phlegm production and Denies stridor Musc Denies myalgias Neuro Reports Normal hearing present and Denies headache(s) Endo Denies excessive sweating Doug/Lymph Denies lymphadenopathy Aller/Immun Denies itchy eyes and Denies seasonal rhinorrhea Physical Exam Vital Signs: Last Vital Signs Pulse 100 04/03/24 13:00 BP 112/74 04/03/24 13:00 Pulse Ox 97 04/03/24 13:00 Oxygen Delivery Method Room Air 04/03/24 13:00 BMI result Body Mass Index 45.0 Const General: cooperative, healthy appearing, comfortable, no acute distress, well developed and alert Nutritional Appearance: obese Orientation/consciousness: patient oriented x3 Limitations: no limitations HEENT Head: Yes normal to inspection, Yes normocephalic and Yes atraumatic Ears: hearing grossly normal bilaterally and external ears normal Eyes General: appearance normal, both eyes and all related structures Eyelids: Yes eyelids normal Sclerae: sclerae normal EOM: EOMs intact bilaterally Neck Neck: Yes normal visual inspection and Yes no lymphadenopathy Lymphatic: no lymphadenopathy noted Chest Chest palpation & inspection: normal inspection of the chest Resp Effort & Inspection: normal respiratory effort, able to speak in complete sentences, no audible wheezes, no cough, no stridor, not tachypneic, no tripod p ositioning and no use of accessory muscles Auscultation: diminished lung sounds Cardio Jugular venous distension: no JVD Rate: regular rate Rhythm: abnormal rhythm Skin Other: warm, dry General skin exam: no rashes or lesions noted Neuro General: patient oriented x3 Cranial nerves: Yes Normal hearing present Cognition (Neuro): normal cognition Gait exam (Neuro): Normal gait present Extrem General: Yes normal to inspection, Yes capillary refill normal, Yes no clubbing, cyanosis or edema and Yes no pedal edema Psych Appearance: grossly normal and well kempt Speech and movement: Normal speech and movement present and Clear speech present Affect: normal affect Attitude: cooperative Thought process: Normal thought process present Thought content: Normal thought content present Insight: Good insight present (Psych) Judgement: Good judgement present (Psych) Assessment & Plan Assessment & Plan (1) NOEMI on CPAP: Code(s): G47.33 - Obstructive sleep apnea (adult) (pediatric); Z99.89 - Dependence on other enabling machines and devices Category: Medical (2) Dyspnea: Code(s): R06.00 - Dyspnea, unspecified Category: Medical Qualifiers: Dyspnea type: dyspnea on exertion Qualified Code(s): R06.09 - Other forms of dyspnea (3) Morbid obesity: Code(s): E66.01 - Morbid (severe) obesity due to excess calories Category: Medical Plan Encouraged patient to make follow up with cardiology as there are no upcoming appointments and patient with significant cardiac history. Advised patient to continue compliance with CPAP therapy and will consider repeating sleep study given weight loss since last PSG. All questions were answered and patient is in agreement of plan. Will follow up with Dr. Loomis for regularly scheduled appointment or sooner if needed. Coding Level of Care Code Est Pt Level 4 (98554) Diagnoses NOEMI on CPAP G47.33; Z99.89 Dyspnea on exertion R06.09 Dyspnea type: dyspnea on exertion Morbid obesity E66.01
[2024-04-03 13:00] VITALS: BP 112/74; PULSE 100; O2SAT 97; BMI 45.0
== END 2024-04-03 13:31 | disposition home or self-care (01) ==
PROVIDERS: PCP Internal Medicine; Visit Provider Nurse Practitioner Family
DX: G47.33 Obstructive sleep apnea (adult) (pediatric) (principal); Z99.89 Dependence on other enabling machines and devices; R06.09 Other forms of dyspnea; E66.01 Morbid (severe) obesity due to excess calories
CPT/HCPCS: 99214

== ENCOUNTER → 2024-04-03 12:53 | Outpatient (BNVA) | payer MEDICARE, MEDICAID, SELFPAY | PROVIDERS: PCP Internal Medicine; Visit Provider Nurse Practitioner Family | DX: G47.33 Obstructive sleep apnea (adult) (pediatric) (principal); R06.09 Other forms of dyspnea; E66.01 Morbid (severe) obesity due to excess calories; Z79.01 Long term (current) use of anticoagulants; Z99.89 Dependence on other enabling machines and devices | CPT/HCPCS: 99212 ==

== ENCOUNTER 2024-05-04 10:20 | Outpatient (AMB) | payer MEDICARE, MEDICAID, SELFPAY ==
[2024-05-04 10:37] LABS: Prothrombin Time Whole Bld POC 40.4 sec (11.1-13.5); ~PT, ~INR - Anti Coag Clinic 3.4 (0.9-1.1)
--- NOTE | 2024-05-04 10:37 | MHC.OFFVISCO ---
Intake Intake Visit Reasons: Anticoagulation Allergies iodine [IODINE] Allergy (Intermediate, Verified 05/04/24 10:23) HIVES, bloating latex [LATEX] Allergy (Intermediate, Verified 05/04/24 10:23) HIVES shellfish derived [SHELLFISH DERIVED] Allergy (Intermediate, Verified 05/04/24 10:23) ANAPHYLAXIS Medication List - Last Reconciled 05/04/24 by Brittany German RN acetaminophen ER 1,300 mg PO DAILY bupropion HCl 100 mg PO BEDTIME bupropion HCl 200 mg PO DAILY carvedilol 6.25 mg See Protocol PO BID 90 days cetirizine 10 mg PO DAILY cholecalciferol (vitamin D3) (Vitamin D3) 50 mcg PO DAILY colchicine (Colcrys) 0.6 mg PO DAILY 90 days digoxin 250 mcg PO 3XW 90 days diphenhydramine HCl (Allergy (diphenhydramine)) 25 mg orally 2 TABS AT HS PRN; duloxetine 40 mg PO DAILY furosemide 20 mg PO BID gabapentin 300 mg PO BEDTIME gabapentin 100 mg PO BID losartan 12.5 mg (1/2 x 25 mg) PO DAILY 90 days multivitamin 1 tab PO DAILY omega-3 fatty acids 500 mg PO DAILY risperidone 1 mg PO BEDTIME sennosides-docusate sodium 8.6-50 mg (Senokot-S) 2 tab-caps (2 x 8.6-50 mg) PO BEDTIME tamsulosin (Flomax) 0.8 mg (2 x 0.4 mg) PO BEDTIME tizanidine 4 mg PO BEDTIME warfarin 4 mg See Protocol PO DAILY Nursing Note INR: 3.4 out of therapeutic range 2-3 Pt has not been to [facility] since 02/03/24 he states because he lost his insurance. Medications and supplements reviewed Patient status: well Medications or supplements: no changes Diet: pt has been eating healthier and has lost 60lbs Denies any signs and symptoms of bleeding or clotting or unusual bruising Bleeding, bruising, clotting discussed Nutritional guidance given: to have a serving of greens today Dose: 4mg daily F/U INR Date : 1 week?? Patient verbalizing understanding of instructions given. Anti-Coag Initial Assessment Social Hx Patient Tobacco Use Status: Former Tobacco user alcohol intake: never Coding Level of Care Code Est Patient Level 1 Diagnoses Current use of anticoagulant therapy Z79.01 Results AMB INR Fingerstick AMB INR Fingerstick 3.4 Last Edit by Brittany German RN on 05/04/24 10:29 interface delay Assessment & Plan Assessment & Plan (1) Current use of anticoagulant therapy: Code(s): Z79.01 - [facility] (current) use of anticoagulants Category: Medical
== END 2024-05-04 10:45 | disposition home or self-care (01) ==
LOC: HO.ACS 10:20
PROVIDERS: PCP Internal Medicine; Visit Provider Internal Medicine
DX: Z79.01 Long term (current) use of anticoagulants (principal)

== ENCOUNTER → 2024-05-04 10:20 | Outpatient (BNVA) | payer MEDICARE, MEDICAID, SELFPAY | PROVIDERS: PCP Internal Medicine; Visit Provider Internal Medicine | DX: I26.99 Other pulmonary embolism without acute cor pulmonale (principal); Z79.01 Long term (current) use of anticoagulants; Z51.81 Encounter for therapeutic drug level monitoring | CPT/HCPCS: 85610; 99211 ==

== ENCOUNTER 2024-05-12 10:10 | Outpatient (AMB) | payer MEDICARE, MEDICAID, SELFPAY ==
[2024-05-12 10:34] LABS: Prothrombin Time Whole Bld POC 36.8 sec (11.1-13.5); ~PT, ~INR - Anti Coag Clinic 3.1 (0.9-1.1)
--- NOTE | 2024-05-12 10:41 | MHC.OFFVISCO ---
Intake Intake Visit Reasons: Anticoagulation Allergies iodine [IODINE] Allergy (Intermediate, Verified 05/12/24 10:23) HIVES, bloating latex [LATEX] Allergy (Intermediate, Verified 05/12/24 10:23) HIVES shellfish derived [SHELLFISH DERIVED] Allergy (Intermediate, Verified 05/12/24 10:23) ANAPHYLAXIS Medication List - Last Reconciled 05/12/24 by Quynh Cervantes RN acetaminophen ER 1,300 mg PO DAILY bupropion HCl 100 mg PO BEDTIME bupropion HCl 200 mg PO DAILY carvedilol 6.25 mg See Protocol PO BID 90 days cetirizine 10 mg PO DAILY cholecalciferol (vitamin D3) (Vitamin D3) 50 mcg PO DAILY colchicine (Colcrys) 0.6 mg PO DAILY 90 days digoxin 250 mcg PO 3XW 90 days diphenhydramine HCl (Allergy (diphenhydramine)) 25 mg orally 2 TABS AT HS PRN; duloxetine 40 mg PO DAILY furosemide 20 mg PO BID gabapentin 300 mg PO BEDTIME gabapentin 100 mg PO BID losartan 12.5 mg (1/2 x 25 mg) PO DAILY 90 days multivitamin 1 tab PO DAILY omega-3 fatty acids 500 mg PO DAILY risperidone 1 mg PO BEDTIME sennosides-docusate sodium 8.6-50 mg (Senokot-S) 2 tab-caps (2 x 8.6-50 mg) PO BEDTIME tamsulosin (Flomax) 0.8 mg (2 x 0.4 mg) PO BEDTIME tizanidine 4 mg PO BEDTIME warfarin 4 mg See Protocol PO DAILY Nursing Note NO CP,SOB,DIET/MED CHANGES,FALLS OR SX OF BLEEDING. CONTINUE PRESENT DOSE AND FOLLOW-UP IN 2 WEEEKS. GOOD UNDERSTANDING OF DOSING INSTR. Anti-Coag Initial Assessment Social Hx Patient Tobacco Use Status: Former Tobacco user alcohol intake: never Coding Level of Care Code Est Patient Level 1 Diagnoses Current use of anticoagulant therapy Z79.01 Assessment & Plan Assessment & Plan (1) Current use of anticoagulant therapy: Code(s): Z79.01 - half-way (current) use of anticoagulants Category: Medical
== END 2024-05-12 10:44 | disposition home or self-care (01) ==
LOC: HO.ACS 10:10
PROVIDERS: PCP Internal Medicine; Visit Provider Internal Medicine
DX: Z79.01 Long term (current) use of anticoagulants (principal)

== ENCOUNTER → 2024-05-12 10:10 | Outpatient (BNVA) | payer MEDICARE, MEDICAID, SELFPAY | PROVIDERS: PCP Internal Medicine; Visit Provider Internal Medicine | DX: I26.99 Other pulmonary embolism without acute cor pulmonale (principal); Z79.01 Long term (current) use of anticoagulants; Z51.81 Encounter for therapeutic drug level monitoring | CPT/HCPCS: 85610; 99211 ==

== ENCOUNTER 2024-07-13 12:54 | Outpatient (AMB) | payer MEDICARE, MEDICAID, SELFPAY ==
[2024-07-13 13:40] LABS: Prothrombin Time Whole Bld POC 37.4 sec (11.1-13.5); ~PT, ~INR - Anti Coag Clinic 3.1 (0.9-1.1)
--- NOTE | 2024-07-13 13:46 | MHC.OFFVISCO ---
Intake Intake Visit Reasons: Anticoagulation Allergies iodine [IODINE] Allergy (Intermediate, Verified 07/13/24 12:55) HIVES, bloating latex [LATEX] Allergy (Intermediate, Verified 07/13/24 12:55) HIVES shellfish derived [SHELLFISH DERIVED] Allergy (Intermediate, Verified 07/13/24 12:55) ANAPHYLAXIS Medication List - Last Reconciled 07/13/24 by Brittany Hassan, RN acetaminophen ER 1,300 mg PO DAILY atorvastatin 10 mg PO BEDTIME bupropion HCl 100 mg PO BEDTIME bupropion HCl 200 mg PO DAILY carvedilol 6.25 mg See Protocol PO BID 90 days cetirizine 10 mg PO DAILY cholecalciferol (vitamin D3) (Vitamin D3) 50 mcg PO DAILY colchicine (Colcrys) 0.6 mg PO DAILY 90 days digoxin 250 mcg PO 3XW 90 days duloxetine 40 mg PO DAILY furosemide 20 mg PO BID gabapentin 300 mg PO BEDTIME gabapentin 100 mg PO BID multivitamin 1 tab PO DAILY omega-3 fatty acids 500 mg PO DAILY risperidone 1 mg PO BEDTIME sennosides-docusate sodium 8.6-50 mg (Senokot-S) 2 tab-caps (2 x 8.6-50 mg) PO BEDTIME tamsulosin (Flomax) 0.8 mg (2 x 0.4 mg) PO BEDTIME tizanidine 4 mg PO BEDTIME warfarin 4 mg See Protocol PO DAILY Nursing Note Amb to [facility] using cane accomp by ASSOCIATE [employer] feeling not good noted pt has not been to clinic since 05/12/24 I have no transportation The hospital transportation makes you wait 3 hours for picker packer pt proceeds to explain in detail not sleeping, up every three hours to pee I've lost 70 pounds, I don't eat hardly anything at all pt wearing a mask but denies respiratory concerns pt hands this RN hand written medlist and noted Dapagllifozin (not on EMAR) and lisinopril, (on EMAR) pt sts not taking lisinopril anymore forever , and no more benadryl pt then became aggressive in his speech making statements I don't even know what these medicines are for no body answers my questions I don't want to be here anymore (questioned pt regarding here as in [facility] or here as in life) pt sts I don't want to be here, I want to be with my , who is She in my arms at my dads in 2007, brain aneurysm this RN asked pt if he felt he would harm himself or someone else stated NO, I've wanted to just be with her since 2007 offered crisis, declined reviewed with pt importance of knowing medications, what they are for, when to take and especially interaction with warfarin, pt sts no one answers any of his questions, pt also sts I can't remember anything (fills his own med box) pt continues on with negative statements and continued concerns over not sleeping and up all the time peeing- reviewed with pt possible strategies to promote sleep and when to consume water and when to stop also reviewed importance of positioning of legs to reduce any edema that can then cause night time urinary frequency (bilat lower leg mild edema, venous stasis noted, skin discoloration noted) pt sts uses his CPAP nightly discusseed at length importance of communication with all providers, keeping us aware of medication changes and any challenges getting to clinic discussed with pt that I would send todays visit notes to PCP and to nurse navigators to help with coordination of care and transportation as his ASS[employer] who is here today is assisting him, not in a paid position any longer and is not always available ([facility]- [phone], SHE MAY BE ABLE TO HELP WITH SOME VISITS) Directed visit back to [facility] concerns No other changes in health, diet, medications, or supplements, Denies any signs and symptoms of bleeding or bruising or clotting. Bleeding, bruising, clotting discussed INR 3.1 just above therapeutic range Dose: continue same dose 4mg daily pt is not a green eater- he will have canned peaches over the next few days (acts as a green) to help move INR into range F/U INR: scheduled for 2 weeks, ok with [facility] for transportation Patient verbalizes understanding of instructions given Notes forwarded to Dr Kota Carvajal and nurse navigation Anti-Coag Initial Assessment Social Hx Patient Tobacco Use Status: Former Tobacco user alcohol intake: never Coding Level of Care Code Est Patient Level 2 Diagnoses Current use of anticoagulant therapy Z79.01 Time Spent (min) 30 Comment actual time w pt was 60 mins, listening, counseling, medication review and updating, INR Assessment & Plan Assessment & Plan (1) Current use of anticoagulant therapy: Code(s): Z79.01 - [facility] (current) use of anticoagulants Category: Medical
== END 2024-07-13 14:35 | disposition home or self-care (01) ==
LOC: HO.ACS 12:54
PROVIDERS: PCP Internal Medicine; Visit Provider Internal Medicine
DX: Z79.01 Long term (current) use of anticoagulants (principal)

== ENCOUNTER → 2024-07-13 12:54 | Outpatient (BNVA) | payer MEDICARE, MEDICAID, SELFPAY | PROVIDERS: PCP Internal Medicine; Visit Provider Internal Medicine | DX: I26.99 Other pulmonary embolism without acute cor pulmonale (principal); Z79.01 Long term (current) use of anticoagulants; Z51.81 Encounter for therapeutic drug level monitoring | CPT/HCPCS: 85610; 99212 ==

== ENCOUNTER → 2024-07-20 15:23 | Outpatient (BNVA) | payer MEDICARE, MEDICAID, SELFPAY | PROVIDERS: PCP Internal Medicine ==

== ENCOUNTER 2024-07-27 13:00 | Outpatient (AMB) | payer MEDICARE, MEDICAID, SELFPAY ==
[2024-07-27 13:37] LABS: Prothrombin Time Whole Bld POC 32.5 sec (11.1-13.5); ~PT, ~INR - Anti Coag Clinic 2.7 (0.9-1.1)
--- NOTE | 2024-07-27 13:44 | MHC.OFFVISCO ---
Intake Intake Visit Reasons: Anticoagulation Allergies iodine [IODINE] Allergy (Intermediate, Verified 07/27/24 13:29) HIVES, bloating latex [LATEX] Allergy (Intermediate, Verified 07/27/24 13:29) HIVES shellfish derived [SHELLFISH DERIVED] Allergy (Intermediate, Verified 07/27/24 13:29) ANAPHYLAXIS Medication List - Last Reconciled 07/27/24 by Priscila Gilliland RN acetaminophen ER 1,300 mg PO DAILY atorvastatin 10 mg PO BEDTIME carvedilol 6.25 mg See Protocol PO BID 90 days cetirizine 10 mg PO DAILY cholecalciferol (vitamin D3) (Vitamin D3) 50 mcg PO DAILY dapagliflozin propanediol (Farxiga) 5 mg PO DAILY digoxin 250 mcg PO 3XW 90 days duloxetine 40 mg PO DAILY furosemide 20 mg PO BID gabapentin 300 mg PO BEDTIME gabapentin 100 mg PO BID multivitamin 1 tab PO DAILY omega-3 fatty acids 500 mg PO DAILY risperidone 1 mg PO BEDTIME sennosides-docusate sodium 8.6-50 mg (Senokot-S) 2 tab-caps (2 x 8.6-50 mg) PO BEDTIME tamsulosin (Flomax) 0.8 mg (2 x 0.4 mg) PO BEDTIME tizanidine 4 mg PO BEDTIME warfarin 4 mg See Protocol PO DAILY Nursing Note INR: 2.7 in therapeutic range Medications and supplements reviewed Since pt lost 80 lbs since the Summer he finds he is able to actually tolerate more fruits and vegetables and get up and down easier and his knees are feeling better Denies any signs and symptoms of bleeding or bruising or clotting. Bleeding, bruising, clotting discussed Nutritional guidance given Dose: 4MG DAILY F/U INR: 3 weeks Patient verbalizes understanding of instructions given Anti-Coag Initial Assessment Social Hx Patient Tobacco Use Status: Former Tobacco user alcohol intake: never Questionnaires HAS-BLED Does the patient had uncontrolled Hypertension?: No Does the patient have renal disease?: No Does the patient have liver disease?: No Does the patient have a history of stroke?: No Has the patient had major bleeding or predisposition to bleeding?: No Does the patient have labile INRs?: Yes Is the patient over 65 years of age?: Yes Is the patient on medications that gives them a predisposition to bleeding?: Yes Does the patient use alcohol?: No HAS-BLED Score: 3 CHADSVASC Age: 66-74 Gender: Male Does the patient have a history of CHF?: Yes Does the patient have a history of Hypertension?: Yes Does the patient 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) Does the patient have a history of Vascular Disease (prior [place], PAD or aortic plaque)?: No Does the patient have a history of Diabetes?: Yes CHADS VACS Score: 6 Ml Prediction Score Rsk VTE Active Cancer: No Previous VTE, excluding superficial vein thrombosis: Yes Reduced mobility: Yes Already known Thrombophilic Condition: No With-in last month Trauma and/or Surgery: No Elderly 70 year or older: Yes Heart and/or Respiratory Failure: Yes Acute Myocardial infarction and/or Ischemic Stroke: No Acute Infection and/or Rheumatologic Disorder: No Obesity (BMI 30 or greater): Yes Ongoing Hormonal Treatment: No Score: 9 Ml Score less than 4; Low Risk of VTE Ml Score 4 or greater; High Risk of VTE Coding Level of Care Code Est Patient Level 1 Diagnoses Current use of anticoagulant therapy Z79.01 Assessment & Plan Assessment & Plan (1) Current use of anticoagulant therapy: Code(s): Z79.01 - predatory animal exterminator (current) use of anticoagulants Category: Medical
== END 2024-07-27 13:52 | disposition home or self-care (01) ==
LOC: HO.ACS 13:00
PROVIDERS: PCP Internal Medicine; Visit Provider Internal Medicine
DX: Z79.01 Long term (current) use of anticoagulants (principal)

== ENCOUNTER → 2024-07-27 13:00 | Outpatient (BNVA) | payer MEDICARE, MEDICAID, SELFPAY | PROVIDERS: PCP Internal Medicine; Visit Provider Internal Medicine | DX: I26.99 Other pulmonary embolism without acute cor pulmonale (principal); Z79.01 Long term (current) use of anticoagulants; Z51.81 Encounter for therapeutic drug level monitoring | CPT/HCPCS: 85610; 99211 ==

== ENCOUNTER 2024-08-17 13:01 | Outpatient (AMB) | payer MEDICARE, MEDICAID, SELFPAY ==
[2024-08-17 13:24] LABS: Prothrombin Time Whole Bld POC 48.6 sec (11.1-13.5)
--- NOTE | 2024-08-17 13:30 | MHC.OFFVISCO ---
Intake Intake Visit Reasons: Anticoagulation Allergies iodine [IODINE] Allergy (Intermediate, Verified 08/17/24 13:18) HIVES, bloating latex [LATEX] Allergy (Intermediate, Verified 08/17/24 13:18) HIVES shellfish derived [SHELLFISH DERIVED] Allergy (Intermediate, Verified 08/17/24 13:18) ANAPHYLAXIS Medication List - Last Reconciled 08/17/24 by Brittany German, RN acetaminophen ER 1,300 mg PO DAILY atorvastatin 10 mg PO BEDTIME carvedilol 6.25 mg See Protocol PO BID 90 days cetirizine 10 mg PO DAILY cholecalciferol (vitamin D3) (Vitamin D3) 50 mcg PO DAILY dapagliflozin propanediol (Farxiga) 5 mg PO DAILY digoxin 250 mcg PO 3XW 90 days duloxetine 40 mg PO DAILY furosemide 20 mg PO BID gabapentin 300 mg PO BEDTIME gabapentin 100 mg PO BID multivitamin 1 tab PO DAILY omega-3 fatty acids 500 mg PO DAILY risperidone 1 mg PO BEDTIME sennosides-docusate sodium 8.6-50 mg (Senokot-S) 2 tab-caps (2 x 8.6-50 mg) PO BEDTIME tamsulosin (Flomax) 0.8 mg (2 x 0.4 mg) PO BEDTIME tizanidine 4 mg PO BEDTIME warfarin 4 mg See Protocol PO DAILY Nursing Note Pt to [facility] with his [employer] SUPER[employer]. Pt in good spirits. INR: 4.0?out of therapeutic range 2-3 Medications and supplements reviewed Patient status: well Medications or supplements: no changes Diet: pt states he drinks a lot of Pepsi but doesn't eat much. May need lower dose. Denies any signs and symptoms of bleeding or clotting or unusual bruising Bleeding, bruising, clotting discussed Nutritional guidance given: to have a serving of greens today. Pt states he won't, states he never eats greens. Food list reviewed. Dose: hold today's dose of 4mg then resume usual dose of 4mg daily F/U INR Date : 1 week?? Patient verbalizing understanding of instructions with read back given. Anti-Coag Initial Assessment Social Hx Patient Tobacco Use Status: Former Tobacco user alcohol intake: never Coding Level of Care Code Est Patient Level 1 Diagnoses Current use of anticoagulant therapy Z79.01 Results AMB INR Fingerstick AMB INR Fingerstick 4.0 Last Edit by Brittany German RN on 08/17/24 13:25 interface delay Assessment & Plan Assessment & Plan (1) Current use of anticoagulant therapy: Code(s): Z79.01 - skilled nursing (current) use of anticoagulants Category: Medical
--- OUTSIDE RECORDS SUMMARY | 2024-08-17 16:49 | XMS_ITS ---
Author Name Montero BRITTNEYHomer Address [address] [place] [address] Phone [phone] [facility] Care Team Providers Care Kiln Tender Name Role Phone Homer Montero Unavailable [phone] [facility] Unavailable [phone] Unavailable Unavailable Unavailable Reason for Referral Not Available Allergies, adverse reactions, alerts Allergen Type Reaction Severity Status Onset Date Tizanidine Allergy to substance (disorder) lightheadedness U nknown Active N/A History of medication use Medication Class Instructions Start Date End Date Atorvastatin Calcium 10 mg Tab TAKE 1 TA BLET BY MOUTH AT BEDTIME 2021-10-31 No Data Available Digoxin 125 MCG Tab TAKE 1 TABLET BY MOUTH MWF 2021-10 No Data Available Warfarin Sodium 4 mg Tab TAKE 1 TABLET B Y MOUTH M-W-F as directed 2021-08-06 No Data Available LORazepam 1 mg Tab TAKE 1 1/2 TABLETS B Y MOUTH at HS NEEDED 2022-02-17 2024-01-25 Sertraline 100 mg Tab TAKE 1 TABLETS BY MOUTH EVERY DAY 2022-02-17 No Data Available buPROPion 100 mg Tab TAKE 1 TABLET BY MO UTH THREE TIMES DAILY 2022-02-17 No Data Available Valsartan 40 mg Tab TAKE 1/2 TABLET BY M OUTH EVERY EVENING 2021-12-09 No Data Available Carvedilol 6.25 mg Tab TAKE 1 TABLET BY MOUTH TWICE DAILY WITH FOOD OR MEAL 2022-03-17 No Data Available Cetirizine 10 mg Tab TAKE 1 TABLET BY MO UTH DAILY 2021-12-10 No Data Available Primidone 50 mg Tab TAKE 1 TABLET BY MAURO TH TWICE DAILY 2022-01-23 2024-01-25 tiZANidine 4 mg Tab TAKE 1 TABLET BY MAURO TH AT BEDTIME NEEDED FOR SPASMS 2022-06-30 No Data Available oxyCODONE 5 mg Tab TAKE 1 TABLET BY MAURO TH EVERY 6 HOURS NEEDED FOR PAIN 2022-07-05 No Data Available tiZANidine 4 mg Tab 1 tablet qd prn 2022-07-27 No Da ta Available Cyclobenzaprine 10 mg Tab 1-2 tablet ora lly at bedtime PRN muscle spasm 2022-07-27 2022-10-14 Diclofenac Sodium 1 % Gel 4 grams topica lly to affected area 4 times per day PRN 2022-07-27 No Data Available hydrOXYzine Pamoate 25 mg Cap TAKE 1 CAP ABRIL BY MOUTH DAILY NEEDED FOR ANXIETY OR SLEEP 2022-07-27 2024-01-25 Tylenol 8hr Arthritis Pain 6 50 mg Tab ER 2 tablets orally every 12h 2022-07-27 No Data Avail able hydrOXYzine 25 mg Tab TAKE 1 TABLET BY M OUTH DAILY AT BEDTIME 2022-08-18 2024-01-25 Melatonin 10 mg Tab 1 tablet QHS 2022-08-18 No Data Available DULoxetine 20 mg Cap delayed rel 1 capsule orally daily 2022-10-14 No Data Available Gabapentin 300 mg Cap TAKE 1 CAPSULE BY MOUTH ONCE AT BEDTIME NEEDED FOR NOCTURNAL LEG CRAMPS 2022-10-14 No Data Available Farxiga 5 mg Tab 1 tablet orally daily 2023-08-14 20 08-02-09 Senna-S 8.6/50 mg Tab TAKE 2 TABLET BY M OUTH EVERY DAY AT BEDTIME. 2023-07-30 No Data Available Tamsulosin 0.4 mg Cap TAKE 2 CAPSULES BY MOUTH EVERY NIGHT AT BEDTIME 2023-05-12 No Data Available Furosemide 20 mg Tab TAKE 1 TABLET BY MO UTH TWICE DAILY 2023-08-14 No Data Available Colchicine 0.6 mg Tab TAKE 1 TABLET BY M OUTH DAILY 2023-08-14 No Data Available Losartan Potassium 25 mg Tab TAKE 0.5 TA BLET BY MOUTH EVERY DAY 2023-10-26 No Data Available risperiDONE 1 mg Tab TAKE 1 TABLET BY MO UTH ONCE DAILY FOR TREMORS OR THOUGHTS 2023-11-12 No Data Available Gabapentin 100 mg Cap 1 capsule orally 2 times per day prn 2024-01-25 No Data Available Problem List Problem Status Onset Date Resolved Date NOEIM (obstructive sleep apnea) Active 2022-07-27 N/A HLD (hyperlipidemia) Active 2022-07-27 N/A AfibHypercoagulability due to atrial fibrillation Acti ve 2022-07-27 N/A Vascular diseaseChronic pulmonary embolism Active 2022-07-27 N/A Coagulation defectHypercoagu lability due to atrial fibrillation Active 2022-07-27 N/A History of fall Active 2022-07-30 N/A Dizzy spells Resolved 2023-09-11 2024-01-25 Benzodiazepine dependence Resolved 2022-08-1808-02-09 Insomnia Active 2022-08-18 N/A Morbid obesity Active 2022-07-30 N/A Musculoskeletal pain Active 2022-07-30 N/A MDD (major depressive disord er), recurrent, in full remission Active 2022-07-27 N/A CHF (congestive heart failure)Cardiomyopathy Active 2022-07-27 N/A COPD (chronic obstructive pulmonary disease) Active 2022-07-27 N/A Other problems related to [facility] facilities and other health care Active 2023-09-28 N/A Encounters Encounters Type Facility Date of Service Diagnosis/Co mplaint New patient,40-59min; chronic exacerbation, 2 stable chronic or 1 acute illness add add modifier 95 for video (do not use for phone, instead use [id number]) [facility], ([place] 07/27/2022 Unspecified atrial fibrillationOther thrombophiliaChronic obstructive pulmonary disease, unspecifiedUnspecified disorder of circulatory systemChronic pulmonary embolismHeart failure, unspecifiedCardiomyopathy, unspecifiedMajor depressive disorder, recurrent, in full remissionCoagulation defect, unspecifiedHyperlipidemia, unspecifiedObstructive sleep apnea (adult) (pediatric)History of fallingMyalgia, other siteMorbid (severe) obesity due to excess caloriesBody mass index (BMI) 45.0-49.9, adult New patient,40-59min; chronic exacerbation, 2 stable chronic or 1 acute illness add add modifier 95 for video (do not use for phone, instead use [id number]) [facility] [place] 07[place]27/20[place] New patient,40-59min; chronic exacerbation, 2 stable chronic or 1 acute illness add add modifier 95 for video (do not use for phone, instead use [id number]) [facility] [place] 07/27/2022 New patient,40-59min; chronic exacerbation, 2 stable chronic or 1 acute illness add add modifier 95 for video (do not use for phone, instead use [id number]) [facility] [place] 07/27/2022 New patient,40-59min; chronic exacerbation, 2 stable chronic or 1 acute illness add add modifier 95 for video (do not use for phone, instead use [id number]) [facility] [place] 07/27/2022 New patient,40-59min; chronic exacerbation, 2 stable chronic or 1 acute illness add add modifier 95 for video (do not use for phone, instead use [id number]) [facility] [place] 07/27/2022 New patient,40-59min; chronic exacerbation, 2 stable chronic or 1 acute illness add add modifier 95 for video (do not use for phone, instead use 17901-53) [facility] ([place]) 07/27/2022 New patient,40-59min; chronic exacerbation, 2 stable chronic or 1 acute illness add add modifier 95 for video (do not use for phone, instead use [id number]) [facility] ([place] 07/27/2022 New patient,40-59min; chronic exacerbation, 2 stable chronic or 1 acute illness add add modifier 95 for video (do not use for phone, instead use [id number]) [facility] [place] 07/27/[address] [facility] ([place]/2022 History of fallingMyalgia, o ther site No Data Available [facility] [place] 08/18/2022 Unspecified atrial fibrillationOther thrombophiliaChronic obstructive pulmonary disease, unspecifiedUnspecified disorder of circulatory systemChronic pulmonary embolismHeart failure, unspecifiedCardiomyopathy, unspecifiedMajor depressive disorder, recurrent, in full remissionHyperlipidemia, unspecifiedObstructive sleep apnea (adult) (pediatric)History of fallingMyalgia, other siteMorbid (severe) obesity due to excess caloriesInsomnia, unspecifiedSedative, hypnotic or anxiolytic dependence, uncomplicatedPersonal history of nicotine dependence No Data Available [facility] [place] 10/14/2022 Other thrombophiliaUnspecifi ed atrial fibrillationChronic obstructive pulmonary disease, unspecifiedUnspecified disorder of circulatory systemChronic pulmonary embolismHeart failure, unspecifiedCardiomyopathy, unspecifiedMajor depressive disorder, recurrent, in full remissionCoagulation defect, unspecifiedHyperlipidemia, unspecifiedObstructive sleep apnea (adult) (pediatric)History of fallingMyalgia, other siteMorbid (severe) obesity due to excess caloriesBody mass index (BMI) 45.0-49.9, adultInsomnia, unspecifiedSedative, hypnotic or anxiolytic dependence, uncomplicated No Data Available [facility] ([place] 10/14/2022 No Data Available [facility] [place] 10[place]14[place]2022 No Data Available [facility] [place] 10/14/2022 No Data Available [facility] ([place] 10[place]14/2022 No Data Available [facility] [place] 09/11/2023 Dizziness and giddinessBody mass index (BMI) 40.0-44.9, adult No Data Available [facility] [place] 09/11/2023 No Data Available [facility] [place] 09/11/2023 No Data Available [facility] [place] 09/11/2023 No Data Available [facility] [place]2023 No Data Available [facility] [place] 01/25/2024 Other thrombophiliaUnspecifi ed atrial fibrillationOther problems related to medical facilities and other health careChronic obstructive pulmonary disease, unspecifiedChronic pulmonary embolismUnspecified disorder of circulatory systemCardiomyopathy, unspecifiedHeart failure, unspecifiedMajor depressive disorder, recurrent, in full remissionHyperlipidemia, unspecifiedObstructive sleep apnea (adult) (pediatric)History of fallingMyalgia, other siteMorbid (severe) obesity due to excess caloriesBody mass index (BMI) 40.0-44.9, adultInsomnia, unspecified No Data Available [facility] [place] 01/25/2024 No Data Available [facility] [place] 01/25/2024 No Data Available [facility] [place] 01/25/[address] [facility] [place] 01[place] [facility] [place] 01/25/[address] [facility] [place] 01/25/[address] [facility] [place] 01[place] [facility] [place] 01/25/2024 Vital Signs Date of Collection Vitals 2022-07-27 10:46:20 Height - 185.42 cmWe ight - 158.76 kgBody Mass Index (BMI) - 46.18 kg/m2BP Diastolic - 74.0 mm[Hg]BP Systolic - 101.0 mm[Hg] 2022-08-18 10:49:03 BP Diastolic - 72.0 mm[Hg]BP Systolic - 119.0 mm[Hg] 2022-10-14 11:44:56 BP Diastolic - 69.0 mm[Hg]BP Systolic - 125.0 mm[Hg]Heart Rate - 88.0 /minO2 % BldC Oximetry - 97.0 % 2023-09-11 08:16:32 Weight - 151.05 kgBo dy Mass Index (BMI) - 43.93 kg/m2BP Diastolic - 61.0 mm[Hg]BP Systolic - 110.0 mm[Hg] 2024-01-25 06:58:01 Weight - 150.59 kgBo dy Mass Index (BMI) - 43.8 kg/m2BP Diastolic - 68.0 mm[Hg]BP Systolic - 110.0 mm[Hg] Social History Social History Social History Observation Description Effec tive Time Current Smoking Status Former smoker 2024-07-21 0 Sex Male History of Procedures Procedures Service Procedure code Service date Servicing provider Phone# New patient,40-59min; chronic exacerbation, 2 stable chronic or 1 acute illness add add modifier 95 for video (do not use for phone, instead use [id number]) 61087 2022-07-27 No Data Available No Data Availa ble Pain Assessment - NO pain present (1126F) 1126F 2022-07-27 No Data Available No Data A vailable Medication List Documented (1159F) 1159F 2022-07-27 No Data Available No Data Quita ilable Medication Review by prescribing provider or pharmacist documented (1160F) 1160F 2022-07-27 No Data Available No Data Quita ilable Functional Status Assessed (1170F) 1170F 2022-07-27 No Data Available No Data Avail able Advance Care Directive Advance care planning discussion documented in the medical record (1158F) 1158F 2022-07-27 No Data Available No Data Availa ble BMI obtained (3008F) 3008F 2022-07-27 No Data Availab le No Data Available SBP < 130 (3074F) 3074F 2022-07-27 No Data Available No Data Available DBP <80 (3078F) 3078F 2022-07-27 No Data Available No Data Available No Data Available 2022-07-31 No Data Available No Data Available No Data Available 2022-08-18 No Data Available No Data Available No Data Available 2022-10-14 No Data Available No Data Available Medication List Documented (1159F) 1159F 2022-10-14 No Data Available No Data Quita ilable Pain Assessment - NO pain present (1126F) 1126F 2022-10-14 No Data Available No Data A vailable SBP < 130 (3074F) 3074F 2022-10-14 No Data Available No Data Available DBP <80 (3078F) 3078F 2022-10-14 No Data Available No Data Available No Data Available 55990 2023-09-11 No Data Available No Data Available Medication List Documented (1159F) 1159F 2023-09-11 No Data Available No Data Quita ilable SBP < 130 (3074F) 3074F 2023-09-11 No Data Available No Data Available DBP <80 (3078F) 3078F 2023-09-11 No Data Available No Data Available BMI obtained (3008F) 3008F 2023-09-11 No Data Availab le No Data Available No Data Available 2024-01-25 No Data Available No Data Available Medication List Documented (1159F) 1159F 2024-01-25 No Data Available No Data Quita ilable Medication Review by prescribing provider or pharmacist documented (1160F) 1160F 2024-01-25 No Data Available No Data Quita ilable Functional Status Assessed (1170F) 1170F 2024-01-25 No Data Available No Data Avail able Advance Care Directive Advance care planning discussion documented in the medical record (1158F) 1158F 2024-01-25 No Data Available No Data Availa ble BMI obtained (3008F) 3008F 2024-01-25 No Data Availab le No Data Available SBP < 130 (3074F) 3074F 2024-01-25 No Data Available No Data Available DBP <80 (3078F) 3078F 2024-01-25 No Data Available No Data Available Advance care planning discussed and documented ? advance care plan or surrogate decision-maker was documented in the medical record. (1123F) 1123F 2024-01-25 No Data Available No Data Availa ble Functional Status Functional Category Effective Dates lives alone - 2022-07-27 Activities of Daily Livin2022-07-27 Bathing: Independent 2022-07-27 Ambulation/Walking: Independent Transferring: Independent 2022-07-27 Eating: Independent 2022-07-27 Dressing: Independent 2022-07-27 Toileting: Independent 2022-07-27 has a walker, cane, and shower bench 09-16-08 Mental Status Status Date A&O x3 2022-07-27 Assessments Date of Service Assessments 2022-07-27 10:46:20 AfibHypercoagulabili ty due to atrial fibrillationCOPD (chronic obstructive pulmonary disease)Vascular diseaseChronic pulmonary embolismCHF (congestive heart failure)CardiomyopathyMDD (major depressive disorder), recurrent, in full remissionCoagulation defectHypercoagulability due to atrial fibrillationHLD (hyperlipidemia)NOEMI (obstructive sleep apnea)History of fallMusculoskeletal painMorbid obesity 2022-07-31 11:17:09 History of fallMuscu loskeletal pain 2022-08-18 10:49:03 AfibHypercoagulabili ty due to atrial fibrillationCOPD (chronic obstructive pulmonary disease)Vascular diseaseChronic pulmonary embolismCHF (congestive heart failure)CardiomyopathyMDD (major depressive disorder), recurrent, in full remissionCoagulation defectHypercoagulability due to atrial fibrillationHLD (hyperlipidemia)NOEMI (obstructive sleep apnea)History of fallMusculoskeletal painMorbid obesityInsomniaBenzodiazepine dependence 2022-10-14 11:44:56 AfibHypercoagulabili ty due to atrial fibrillationCOPD (chronic obstructive pulmonary disease)Vascular diseaseChronic pulmonary embolismCHF (congestive heart failure)CardiomyopathyMDD (major depressive disorder), recurrent, in full remissionCoagulation defectHypercoagulability due to atrial fibrillationHLD (hyperlipidemia)NOEMI (obstructive sleep apnea)History of fallMusculoskeletal painMorbid obesityInsomniaBenzodiazepine dependence 2023-09-11 08:16:32 Dizzy spells-Discuss ed to change positions slowly -Discussed that Farxiga can make you dizzy and lightheaded, can take this in the evening-Continue proper fluid intake-Can call CB back with any other questions or concerns 2024-01-25 06:58:01 AfibHypercoagulabili ty due to atrial fibrillationOther problems related to medical facilities and other health careCOPD (chronic obstructive pulmonary disease)Vascular diseaseChronic pulmonary embolismCHF (congestive heart failure)CardiomyopathyMDD (major depressive disorder), recurrent, in full remissionCoagulation defectHypercoagulability due to atrial fibrillationHLD (hyperlipidemia)NOEMI (obstructive sleep apnea)History of fallMusculoskeletal painMorbid obesityInsomnia Plan of Care Date of Service Plans 2022-07-27 10:46:20 Pain Assessment - NO pain documented (1126F)Medication Review by prescribing provider or pharmacist documented (1160F)Medication List Documented (1159F)Functional Status Assessed (1170F)Advance Care Directive Advance care planning discussion documented in the medical record (1158F)BMI obtained (3008F)SBP < 130 (3074F)DBP <80 (3078F)Televideo new patient,40-59min; chronic exacerbation, 2 stable chronic or 1 acute illness add modifier 95Continue to see PCP. Follow-up with [facility] as needed for any acute or disease education needs that may arise.pt is taking coumadin as ordered follows with cardio and coumadin clinic as instructedmindful of dietfall and safety precautions no chest pain or palpitations continue to monitorno maintenance or plan of care in place- pt denies any resp issues to follow up with PCP for ongoing monitoring and managementOther pulmonary embolism without acute cor pulmonaleChronic pulmonary embolismtaking warfarin as ordered labs and plan of care per PCP, cardio, pulm as indicated continue to monitorpt is taking digoxin, carvedilol, and valsartan as ordered reports had echo 4-5 mos ago- unsure of results - gets tested annually EKG about 2 mos ago per medical record: LVEF percentage: 18 %pt is taking bupropion and sertraline with report of effectiveness- reports this is a hard time of year for him d/t deaths of parents and spouse during this time of year- states he is mindful enough to know it happens and will be better when spring comes- Pt does not feel further eval or plan of care is indicated- has friends and support at his housing complex- Pt to notify healthcare provider with any changes or concernstaking warfarin- follows closely with cardio and coumadin clinicaware of fall/safety precautionsmindful of diet continue to monitorpt is taking atorvastatin as orderedlow fat/chol diet labs and meds per PCP, cardiohas CPAP and uses each nightfall and safety precautionss/p fall- mechanical fall- slipped on june- not admitted - treated for deep tissue injury to right side spine he says - sent home with pain medswill call in flexeril, voltaren, Vistaril and Tylenol arthritis to address pain, restlessness- explained OTC meds may not be covered- plan is to f/u Wednesday unless pt calls in priorBMI 46low carb/sugar/fat/portion controlled dietexercise as tolerated 2022-07-31 11:17:09 Phone (patient, pare nt, or guardian); 5-10 minutes of medical discussion (no modifier 95)Continue to see PCP. Follow-up with [facility] as needed for any acute or disease education needs that may arise 08/02.fall and safety precautionspt reports medications have surprisingly been effective- insurance covered all except for a minimal co-pay for the diclofenac he says- pt to continue plan of care- conservative measures- follow up with [facility]: s/p fall- mechanical fall- slipped on june- not admitted - treated for deep tissue injury to right side spine he says - sent home with pain meds-will call in flexeril, voltaren, Vistaril and Tylenol arthritis to address pain, restlessness- explained OTC meds may not be covered- plan is to f/u Wednesday unless pt calls in prior 2022-08-18 10:49:03 Televideo 20-29min; 1 stable chronic or 2 minor; add modifier 95Pain Assessment - NO pain documented (1126F)Continue to see PCP. Follow-up with [facility] as needed for any acute or disease education needs that may arise 08/02.pt is taking coumadin as ordered follows with cardio and coumadin clinic as instructedmindful of dietfall and safety precautions no chest pain or palpitations continue to monitorno maintenance or plan of care in place- pt denies any resp issues to follow up with PCP for ongoing monitoring and managementOther pulmonary embolism without acute cor pulmonaleChronic pulmonary embolismtaking warfarin as ordered labs and plan of care per PCP, cardio, pulm as indicated continue to monitorpt is taking digoxin, carvedilol, and valsartan as ordered reports had echo 4-5 mos ago- unsure of results - gets tested annually EKG about 2 mos ago per medical record: LVEF percentage: 18 %pt is taking bupropion and sertraline with report of effectiveness- reports this is a hard time of year for him d/t deaths of parents and spouse during this time of year- states he is mindful enough to know it happens and will be better when spring comes- Pt does not feel further eval or plan of care is indicated- has friends and support at his housing complex- Pt to notify healthcare provider with any changes or concerns 08/19/2022 has counseling appt he states he is not in need of a new psychologist at this time advised we can refer if needed, he states he can likely get someone from [facility] warfarin- follows closely with cardio and coumadin clinicaware of fall/safety precautionsmindful of diet continue to monitorpt is taking atorvastatin as orderedlow fat/chol diet labs and meds per PCP, cardiohas CPAP and uses each nightfall and safety precautionspt reports medications have surprisingly been effective- insurance covered all except for a minimal co-pay for the diclofenac he says- pt to continue plan of care- conservative measures- follow up with [facility]: s/p fall- mechanical fall- slipped on water- June- not admitted - treated for deep tissue injury to right side spine he says - sent home with pain meds-will call in flexeril, voltaren, Vistaril and Tylenol arthritis to address pain, restlessness- explained OTC meds may not be covered- plan is to f/u Wednesday unless pt calls in priorBMI 46.18low carb/sugar/fat/portion controlled dietexercise as toleratedwas sent hydroxyzine recently and worked better than his lorazepamstates his pain is what impedes his sleepingdiscussed use of OTC melatonin 10mg states he will try advised to discuss with PCP for medications for 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 Follow-up with [facility] as needed for any acute or disease education needs that may arise 08/02.pt is taking coumadin as ordered follows with cardio and coumadin clinic as instructedmindful of dietfall and safety precautions no chest pain or palpitations continue to monitorno maintenance or plan of care in place- pt denies any resp issues to follow up with PCP for ongoing monitoring and managementOther pulmonary embolism without acute cor pulmonaleChronic pulmonary embolismtaking warfarin as ordered labs and plan of care per PCP, cardio, pulm as indicated continue to monitorpt is taking digoxin, carvedilol, and valsartan as ordered reports had echo 4-5 mos ago- unsure of results - gets tested annually EKG about 2 mos ago per medical record: LVEF percentage: 18 %pt is taking bupropion and sertraline with report of effectiveness- reports this is a hard time of year for him d/t deaths of parents and spouse during this time of year- states he is mindful enough to know it happens and will be better when spring comes- Pt does not feel further eval or plan of care is indicated- has friends and support at his housing complex- Pt to notify healthcare provider with any changes or concerns 08/19/2022 has counseling appt he states he is not in need of a new psychologist at this time advised we can refer if needed, he states he can likely get someone from [facility] warfarin- follows closely with cardio and coumadin clinicaware of fall/safety precautionsmindful of diet continue to monitorpt is taking atorvastatin as orderedlow fat/chol diet labs and meds per PCP, cardiohas CPAP and uses each nightfall and safety precautionspt reports medications have surprisingly been effective- insurance covered all except for a minimal co-pay for the diclofenac he says- pt to continue plan of care- conservative measures- follow up with PCPhx: s/p fall- mechanical fall- slipped on water- June- not admitted - treated for deep tissue injury to right side spine he says - sent home with pain meds-will call in flexeril, voltaren, Vistaril and Tylenol arthritis to address pain, restlessness- explained OTC meds may not be covered- plan is to f/u Wednesday unless pt calls in priorBMI 46.18low carb/sugar/fat/portion controlled dietexercise as toleratedwas sent hydroxyzine recently and worked better than his lorazepamstates his pain is what impedes his sleepingdiscussed use of OTC melatonin 10mg states he will try advised to discuss with PCP for medications for snf use seen by psychiatry has appt next month aware to get running script for vistaril from pcp or psychiatry for running scripthas been on lorazepam for 5 years has cut back form 3 pills to 1.5 pills daily states he would like to titrate down further, advised to discuss with psychiatry to slowly taper off 2023-09-11 08:16:32 Phone (patient, pare nt, or guardian); 5-10 minutes of medical discussion (no modifier 95)Continue to see PCP. Follow-up with [place] as needed for any acute or disease education needs that may arise 08/02. 2024-01-25 06:58:01 Medication Review by prescribing provider or pharmacist documented (1160F)Medication List Documented (1159F)Functional Status Assessed (1170F)Advance Care Directive Advance care planning discussion documented in the medical record (1158F)BMI obtained (3008F)SBP < 130 (3074F)DBP <80 (3078F)Advance care planning discussed and documented ? advance care plan or surrogate decision-maker was documented in the medical record. (1123F)Phone (patient, parent, or guardian); 21-30 minutes of medical discussion (no modifier 95)Pain Assessment - NO pain documented (1126F)Continue to see PCP. Follow-up with [facility] as needed for any acute or disease education needs that may arise.pt is taking coumadin as ordered follows with cardio and coumadin clinic as instructedmindful of dietfall and safety precautions no chest pain or palpitations continue to monitorWhen member to call: 1. If bp is elevated sbp>150; dbp>90 or symptomatic-h/a, dizziness, cp, sob. 2. if there is a fall 3. if BS >300 or BS<90 or symptomatic; i.e., dizzy, off balance , shaky, general weakness. 4. if UTI symptoms arise-urinary frequency, dysuria, low abd pain. 5. if pain in knees increases/ or joint pain increased Please remember to call CBContinue to see PCP. [facility] or disease [facility] needs that may arise 08/02.HEART FAILURE CONTINGENCY PLANMember to call for the following symptoms: Edema/ Exertional dyspnea/ Orthopnea/ Weight gain or loss/ WheezingPlanned intervention: Increase furosemide (Lasix) to 60 mg for 3-5 days BID or TID/ Elevate legs/ Take medication every single dayno maintenance or plan of care in place- pt denies any resp issues to follow up with PCP for ongoing monitoring and management Sees cyber security engineer Dr. Loomis01/25/24: Denies any dyspnea with exertion.Other pulmonary embolism without acute cor pulmonaleChronic pulmonary embolismtaking warfarin as ordered labs and plan of care per PCP, cardio, pulm as indicated continue to monitorpt is taking digoxin, carvedilol, and valsartan as ordered reports had echo 4-5 mos ago- unsure of results - gets tested annually EKG about 2 mos ago per medical record: LVEF percentage: 18 %01/25/24: Reports BLE leg swelling, reports right leg has improved, but L leg continues to have swelling below knees. Instructed to take 20mg add. lasix for 3 days; Patient agreed. Denies any dyspnea.pt is taking bupropion and sertraline with report of effectiveness- reports this is a hard time of year for him d/t deaths of parents and spouse during this time of year- states he is mindful enough to know it happens and will be better when spring comes- Pt does not feel further eval or plan of care is indicated- has friends and support at his housing complex- Pt to notify healthcare provider with any changes or concerns 08/19/2022 has counseling appt he states he is not in need of a new psychologist at this time advised we can refer if needed, he states he can likely get someone from [facility] 01/25/24: PHQ-4=5 (Mild), continues to follow with psychologist. He reports feeling lonely but he has good neighbors that interacts with him; He is not interested in day centers at this time.taking warfarin- follows closely with cardio and coumadin clinicaware of fall/safety precautionsmindful of diet continue to monitorpt is taking atorvastatin as orderedlow fat/chol diet labs and meds per PCP, cardiohas CPAP and uses each nightfall and safety precautionspt reports medications have surprisingly been effective- insurance covered all except for a minimal co-pay for the diclofenac he says- pt to continue plan of care- conservative measures- follow up with PCPhx: s/p fall- mechanical fall- slipped on water- June- not admitted - treated for deep tissue injury to right side spine he says - sent home with pain meds-will call in flexeril, voltaren, Vistaril and Tylenol arthritis to address pain, restlessness- explained OTC meds may not be covered- plan is to /u Wednesday unless pt calls in prior 01/25/24: Reports left leg pain due to venous stasis/swellingBMI 43.80low carb/sugar/fat/portion controlled dietexercise as tolerated 01/25/24: He has lost approx 50lb in the last year and he continues to follow a health diet regimen; His goal is to weigh [id number]- was sent hydroxyzine recently and worked better than his lorazepamstates his pain is what impedes his sleepingdiscussed use of OTC melatonin 10mg states he will try advised to discuss with PCP for medications for snf use seen by psychiatry has appt next month aware to get running script for vistaril from pcp or psychiatry for running script01/25/24: He reports completely weaning off hydroxizine and lorazepam; He reports sleeping well at this time. Goals Date Goal 2022-08-18 continue medications as prescribed 2022-08-18 call if you feel ill , have any questions or concerns 2022-08-18 keep appts with coun selor and psychiatry 2022-10-14 continue medications as prescribed 2022-10-14 monitor BP HR daily 2022-10-14 call if you feel ill , have any questions or concerns Health Concerns Date Concern 2024-01-25 Visit completed in g AUDIO only Patient/Guardian agreed to visit via telehealth. Today, patient has chief complaint of: follow up care and comprehensive review.Reviewed Allergies, Medications, Active Medical conditions, past medical/surgical history, Social history. 2024-01-25 Most recent hospital stay(s) or ER visit(s) and precipitating factors: Denies 2024-01-25 Open HEDIS Measure kenia ny: Reviewed 2024-01-25 Advance Care Plan Co nversationDate of Conversation: 01/25/2024Life Limiting Diagnosis: Diagnosis:Currently on Hospice NoCode Status: YES CPR: Attempt ResuscitationGoals of Care: Curative: Attempt to sustain life by all medically effective meansNutrition goals: No decision made about nutrition today; not discussedDo you have a Durable Power of Manager Contracting for Healthcare, or Healthcare Proxy Or Guardianship? Yes, preferred proxy but not named POAIf so, Who? Sister CarolineDo you have a written Advance Directive? Has Advance DirectiveOther details of discussion: Patient expressed her desire to be DNI code status, he is planning to discuss with PCPToday's plan: Advised patient to discuss wishes with [id number] : AD or surrogate was documented in the medical record.
--- OUTSIDE RECORDS SUMMARY | 2024-08-17 16:49 | XMS_ITS ---
Author Organization [facility] Address Unknown Allergies, Adverse Reactions, Alerts Substance Reaction Status Noted Date Resolved Date Shell Fish active 09/02/2018 Latex active 09/02/2018 Iodine active 09/02/2018 Problems Problem Status Start Date End Date UNSPECIFIED INTRACRANIAL INJ URY WITHOUT LOSS OF CONSCIOUSNESS, SUBSEQUENT ENCOUNTER (Primary) (S06.9X0D - ICD-10-CM) ACTIVE 09/02/2018 EFFUSION, RIGHT KNEE (M25.461 - ICD-10-CM) ACTIVE 09/02/2018 FALL ON SAME LEVEL FROM SLIP PING, TRIPPING AND STUMBLING WITHOUT SUBSEQUENT STRIKING AGAINST OBJECT, SUBSEQUENT ENCOUNTER (W01.0XXD - ICD-10-CM) ACTIVE 09/05/2018 DIFFICULTY IN WALKING, NOT E LSEWHERE CLASSIFIED (R26.2 - ICD-10-CM) ACTIVE 09/02/2018 UNSTEADINESS ON FEET (R26.81 - ICD-10-CM) ACTIVE 09/02/2018 UNSPECIFIED ASTHMA, UNCOMPLICATED (J45.909 - ICD-10-CM ) ACTIVE 09/02/2018 TYPE 2 DIABETES MELLITUS WIT HOUT COMPLICATIONS (E11.9 - ICD-10-CM) ACTIVE 09/02/2018 HYPERLIPIDEMIA, UNSPECIFIED (E78.5 - ICD-10-CM) ACTIVE 09/02/2018 UNSPECIFIED ATRIAL FIBRILLATION (I48.91 - ICD-10-CM) A CTIVE 09/02/2018 ESSENTIAL (PRIMARY) HYPERTENSION (I10 - ICD-10-CM) ACT AMARILYS 09/02/2018 MAJOR DEPRESSIVE DISORDER, S MOHINI EPISODE, UNSPECIFIED (F32.9 - ICD-10-CM) ACTIVE 09/02/2018 GASTRO-ESOPHAGEAL REFLUX DIS EASE WITHOUT ESOPHAGITIS (K21.9 - ICD-10-CM) ACTIVE 09/02/2018 Results * ANKLE AP AND LAT 2V Performed by: [employer] Component Value Range Date ANKLE AP AND LAT 2V ANKLE AP AND LAT 2VA NKLE AP and LAT 2V, RIGHTResults: No acute fracture or dislocation is seen. The ankle joint appears intact. There is a large osteophyte on the posterior inferior os calcis.Conclusion: No bone or joint abnormality seen in the right ankle.A large heel spur is noted.Electronically signed by UZIEL WILSON M.D. 09/10/2018 3:07:08 PM EST.Reason for Study: M25.571 PAIN IN RIGHT ANKLE AND JOINTS OF RIGHT FOOTPrincipal Result Raw Material Planner: UZIEL WILSON ([id number])Benefits Coordinator: ROSELYN ALEXANDER (DF)Business Support Administrator Benefits Coordinator: RADHA 09/10/2018 03:11 pm EST * VENOUS DOPPLER EXTREM/GOODEN Performed by: [employer] Component Value Range Date VENOUS DOPPLER EXTREM/GOODEN VENOUS DOPPLER EXTREM/LIMVENOUS DOPPLER EXTREM/GOODEN, RIGHTResults: Right Lower Extremity Venous Duplex Ultrasound:ClinicalHistory: Pain and swelling.High-resolution real-time and Doppler ultrasound, including grayscale and color flowof the right lower extremity was performed. The vessels evaluated include the commonfemoral, superficial femoral, proximal deep femoral, greater saphenous, popliteal,posterior tibial, and calf veins.There is normal response to vascular compression and normal Doppler responses areobserved with spontaneous and augmented flow. No intraluminal thrombus is identified.Imaging of the contralateral common femoral vein demonstrates normal respiratorywaveform variation. No Manzanares's cyst is identified.Conclusion: No evidence for deep venous thrombosis or Manzanares's cyst.Electronically signed by MARISSA WOODARD M.D. 09/09/2018 8:14:29 PM EST.Reason for Study: M79.661 PAIN IN RIGHT LOWER LEGPrincipal Result Raw Material Planner: MARISSA WOODARD ([id number])Benefits Coordinator: HAILEE JACINTO (NMOLDOVAN)Business Support Administrator Benefits Coordinator: RADHA 09/09/2018 08:19 pm EST Encounters Encounter Performer Performer Role Encounter Diagnoses Location Date Discharge - Discharged / Transferred to home under care of organized home health service organization - [facility] - Private home/apt. with home health services [facility] 09/02/2018 03:00 pm EST - 09/13/2018 03:34 pm EST Immunizations Vaccine Date PCV (Prevnar) 13 09/06/2018 09:30 pm EST Influenza (high dose) 05/04/2018 12:00 a m EDT Social History
== END 2024-08-17 13:34 | disposition home or self-care (01) ==
LOC: HO.ACS 13:01
PROVIDERS: PCP Internal Medicine; Visit Provider Internal Medicine
DX: Z79.01 Long term (current) use of anticoagulants (principal)

== ENCOUNTER 2024-08-20 18:31 | Inpatient (IN) | payer MEDICARE, MEDICAID, SELFPAY ==
[2024-08-20] VITALS (11 sets, daily range): BP systolic 91–124; BP diastolic 43–86; PULSE 90–120; RESP 20–24; TEMP 37–37.7; O2SAT 2–96; BMI 30.2
--- NOTE | ~2024-08-20 | XR_ITS ---
CLINICAL HISTORY: dyspnea 1 view chest x-ray Comparison: CR/SR - XR CHEST 1V - 03/20/24 10:37 EDT Findings: Two films were obtained. Focal eventration of the right hemidiaphragm. No consolidation, large pleural effusion or pneumothorax. The heart is enlarged. There is vascular redistribution. No acute fracture. IMPRESSION: Cardiomegaly with CHF. This document has been electronically signed by: Lindsay Shea DO on 08/20/2024 19:35:41
--- NOTE | 2024-08-20 18:52 | ECG_ITS ---
Test Reason : CHEST PAIN Blood Pressure : */* mmHG Vent. Rate : 123 BPM Atrial Rate : * BPM P-R Int : * ms QRS Dur : 100 ms QT Int : 292 ms P-R-T Axes : * -43 104 degrees QTcB Int : 418 ms Atrial fibrillation with rapid ventricular response Left axis deviation Nonspecific ST and T wave abnormality Abnormal ECG When compared with ECG of 20-Mar-2024 10:49, No significant change was found Referred By: Lida Edward Electronically Signed By: Campbell Petty
--- NOTE | 2024-08-20 19:13 | ECG_ITS ---
Test Reason : CHEST PAIN Blood Pressure : */* mmHG Vent. Rate : 129 BPM Atrial Rate : * BPM P-R Int : * ms QRS Dur : 98 ms QT Int : 334 ms P-R-T Axes : * -46 114 degrees QTcB Int : 489 ms Atrial fibrillation with rapid ventricular response Left axis deviation Nonspecific ST and T wave abnormality Abnormal ECG When compared with ECG of 20-Aug-2024 19:11, No significant change was found Referred By: Lida Ewdard Electronically Signed By: Campbell Petty
--- NOTE | 2024-08-20 19:42 | ED_ITS ---
HPI - SOB/Dyspnea General Chief Complaint: Dyspnea Stated Complaint: diff breathing Time Seen by Provider: 08/20/24 18:40 Source: patient, EMS and old records reviewed Mode of arrival: EMS Limitations: no limitations History of Present Illness ED Provider: LAURA NIXON Narrative: 74 yo male with PMH of afib on coumadin, DISH, obesity, PVD, cardiomyopathy, NOEMI on CPAP, COPD not on home O2, CAD, GERD, PE here with c/o not feeling well for a couple of days low grade temps, cough, tired. Tonight he felt more short of breath and called 911. He has body aches but no chest pain, no sputum production, no travel or sick contacts. EMS gave neb en route. Patient denies rash or dysuria. MD elicited complaint: shortness of breath and cough Pertinent past history: COPD Onset (ago): day(s) (2) Context: recent illness Timing: progressively worsening Severity: moderate Exacerbating factors: exertion and coughing Relieving factors: oxygen, rest and bronchodilators Known history of: COPD Associated symptoms: fever, cough, wheezing and lightheadedness Treatment prior to arrival: oxygen and bronchodilator Related Data Home Medications ?Medication ?Instructions ?Recorded ?Confirmed multivitamin 1 tab PO DAILY 10/22/20 08/17/24 acetaminophen 650 mg 1,300 mg PO DAILY 08/05/21 08/17/24 tablet,extended release omega-3 fatty acids 500 mg capsule 500 mg PO DAILY 08/05/21 08/17/24 gabapentin 100 mg capsule 100 mg PO BID 09/25/22 08/17/24 duloxetine 20 mg capsule,delayed 40 mg PO DAILY 10/16/22 08/17/24 release cholecalciferol (vitamin D3) 25 50 mcg PO DAILY 12/23/22 08/17/24 mcg (1,000 unit) tablet (Vitamin D3) gabapentin 300 mg capsule 300 mg PO BEDTIME 12/23/22 08/17/24 warfarin 4 mg tablet 4 mg PO DAILY 08/12/23 08/17/24 risperidone 1 mg tablet 1 mg PO BEDTIME 01/14/24 08/17/24 dapagliflozin propanediol 5 mg 5 mg PO DAILY 07/27/24 08/17/24 tablet (Farxiga) Previous Rx's ?Medication ?Instructions ?Recorded furosemide 20 mg tablet 20 mg PO BID #90 tabs 10/15/23 carvedilol 6.25 mg tablet 6.25 mg PO BID 90 days #180 tabs 10/21/23 digoxin 250 mcg (0.25 mg) tablet 250 mcg PO 3XW 90 days #39 tabs 10/21/23 sennosides 8.6 mg-docusate sodium 2 tab-cap (2 x 8.6-50 mg) PO 10/21/23 50 mg tablet (Senokot-S) BEDTIME #60 tabs cetirizine 10 mg tablet 10 mg PO DAILY #90 tabs 02/22/24 tamsulosin 0.4 mg capsule (Flomax) 0.8 mg (2 x 0.4 mg) PO BEDTIME #90 05/01/24 caps tizanidine 4 mg tablet 4 mg PO BEDTIME #90 tabs 08/08/24 atorvastatin 10 mg tablet 10 mg PO BEDTIME #90 tabs 08/10/24 Allergies Allergy/AdvReac Type Severity Reaction Status Date / Time iodine [IODINE] Allergy Intermediate HIVES, Verified 08/17/24 13:18 bloating latex [LATEX] Allergy Intermediate HIVES Verified 08/17/24 13:18 shellfish derived Allergy Intermediate ANAPHYLAXIS Verified 08/17/24 13:18 [SHELLFISH DERIVED] lisinopril Allergy Unknown Verified 08/20/24 18:57 Review of Systems 2 Review of Systems: Constitutional : pos Fever, pos Chills ENT/Mouth : No Hoarseness, No sore throat, No Rhinorrhea Eyes: No Redness, No Discharge, No Vision Changes Cardiovascular : No Chest Pain, positive SOB, positive Dyspnea on Exertion, No Edema Respiratory : positive Cough, No Sputum, positive Wheezing, Gastrointestinal : No Nausea, No Vomiting, No Diarrhea, No abdominal Pain Genitourinary : No Dysuria, No Hematuria Musculoskeletal : No joint pain, No Myalgias Skin : No rash Neuro : No Weakness, No Numbness, No Headache Psych : No anxiety, depression All other systems reviewed and are negative PMFSH Past Medical History Attestation statement: The following information was validated with the patient. Source: old records reviewed Medical History Heart failure with reduced ejection fraction Chest pain, pleuritic Back pain Dyspnea NOEMI on CPAP COPD (chronic obstructive pulmonary disease) CAD (coronary artery disease) HLD (hyperlipidemia) HTN (hypertension) Diabetes Obstructive sleep apnea Morbid obesity Cardiomyopathy Persistent atrial fibrillation Current use of anticoagulant therapy Surgical History History of knee surgery History of ankle surgery Family History Family History Father HTN (hypertension) Diabetes mellitus Cardiac disease Bone cancer Substance use disorder Mother HTN (hypertension) Lung cancer Social History Social History Household Members: None Housing: Apartment Do you presently have 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) Alcohol intake: never Comment: pt refusing bed alarm and red socks Patient Tobacco Use Status: Former Tobacco user Years Smoked: 30 yrs e-Cigarette/Vaping Use: Never Used Second Hand Smoke Exposure: No Advance Directives: No Advance Directives Information Provided: Yes Do you have a plan to hurt others: No Plan service: No Current occupational status: retired and disabled Cognitive needs: No Hearing needs: No Vision needs: Yes Physical Exam 2 Vital Signs: Vital Signs: Last Vital Signs Temp 100 F 08/20/24 18:56 Pulse 109 H 08/20/24 21:03 Resp 20 08/20/24 21:03 BP 117/57 L 08/20/24 21:03 Pulse Ox 96 08/20/24 21:03 O2 Del Method Nasal Cannula 08/20/24 21:03 O2 Flow Rate 2 08/20/24 21:03 BMI result Body Mass Index 30.2 Appearance: Alert. Oriented X3. No acute distress. Eyes: Pupils equal, round and reactive to light. ENT: Pharynx dry MM Neck: Normal inspection. Neck supple. CVS: rapid irregular heart rate and rhythm. Pulses normal. Respiratory: No respiratory distress. Breath sounds diminished Abdomen: Soft and non-tender. Skin: Skin warm and dry. Normal skin color. Normal skin turgor. Extremities: No lower extremity edema. Neuro: Oriented X 3. No motor deficit. No sensory deficit. CN2-12 intact Medications Administered Generic Name Dose Route Start Last Admin Trade Name Freq PRN Reason Stop Dose Admin Sodium Chloride 1,000 mls @ 999 mls/hr 08/20/24 20:28 08/20/24 20:41 Ns IV 08/20/24 21:28 999 mls/hr .Q1H1M ONE Administration Doxycycline Hyclate 100 mg/ 250 mls @ 166.67 mls/hr 08/20/24 20:28 08/20/24 20:52 Sodium Chloride IV 08/20/24 21:57 166.67 mls/hr ONCE ONE Administration Discontinued Medications Generic Name Dose Route Start Last Admin Trade Name Gonzalez PRN Reason Stop Dose Admin Acetaminophen 975 mg 08/20/24 19:34 08/20/24 20:40 Acetaminophen 325 Mg Tablet PO 08/20/24 19:35 975 mg ONCE ONE Administration Ceftriaxone Sodium 1 gm 08/20/24 18:52 08/20/24 20:48 Ceftriaxone Sodium 1 Gm Vial IVPUSH 08/20/24 18:53 1 gm ONCE ONE Administration Sodium Chloride 250 mls @ 250 mls/hr 08/20/24 19:49 08/20/24 20:52 Ns IV 08/20/24 20:48 250 mls/hr .Q1H ONE Administration Levalbuterol HCl 1.25 mg 08/20/24 19:53 08/20/24 20:05 Levalbuterol Hcl 1.25 Mg/3 Ml Vial.Neb INHALE 08/20/24 19:54 1.25 mg ONCE ONE Administration Methylprednisolone Sodium Succinate 60 mg 08/20/24 18:52 08/20/24 20:40 Methylprednisolone Sod Succ 125 Mg/2 Ml Vial IVPUSH 08/20/24 18:53 60 mg ONCE ONE Administration Medical Decision Making Medical Decision Making [facility] Narrative: 74 yo male with PMH of afib on coumadin, DISH, obesity, PVD, cardiomyopathy, NOEMI on CPAP, COPD not on home O2, CAD, GERD, PE here with c/o URI symptoms and dyspnea at this time I have ordered labs, cultures, nebs and steroids - he will be given gentle fluids at 1.25L, sepsis protocol, IV ceftriaxone, tylenol, viral panel - he is requiring O2 will likely admit Differential Diagnosis Differential Diagnoses: The differential diagnosis associated with the presentation includes URI, viral syndrome, afib with RVR no leg edema or JVD to suggest CHF Admission/Observation Consideration of admission/observation: Escalation of care including admission/observation considered admit given his hypoxia Consult Healthcare Provider Management of the patient was discussed with: Hospitalist (will admit) Lab Data [facility] Lab Attestation statement: I reviewed the patient's lab results. 08/20/24 19:40 08/20/24 19:40 Labs: Lab Results 08/20/24 08/20/24 Range/Units 19:40 19:46 WBC 13.4 H (4.8-10.8) X10*3/uL RBC 4.78 (4.60-5.80) X10*6/uL Hgb 14.9 (14.0-18.0) g/dl Hct 43.7 (42.0-52.0) % MCV 91.4 (80.0-98.0) fL MCH 31.2 (27.0-33.0) pg MCHC 34.1 (31.0-36.0) g/dl RDW 12.1 (11.0-16.0) % Plt Count 196 (160-400) X10*3/uL MPV 10.6 (9.4-12.4) fL Immature Gran % (Auto) 0.4 (0.0-0.4) % Neut % (Auto) 92.6 H (45-73) % Lymph % (Auto) 3.0 L (20-40) % [place] % (Auto) 3.7 (2-11) % Eos % (Auto) 0.0 (0-4) % Baso % (Auto) 0.3 (0-2) % Lymph # (Auto) 0.4 L (1.2-4.9) X10*3/uL [place] # (Auto) 0.5 (0.1-1.2) X10*3/uL Eos # (Auto) 0.0 (0.0-0.4) X10*3/uL Baso # (Auto) 0.0 (0.0-0.2) X10*3/uL Abs Immat Gran (auto) 0.06 H (0.00-0.03) X10*3/uL Absolute Neuts (auto) 12.4 H (2.0-8.3) x10*3/uL Absolute Nucleated RBC 0.000 (0.0-0.012) X10*3/uL Nucleated RBC % (auto) 0.0 (0.0-0.2) /100WBC Smear Tech's Comments VERIFIED PT 29.2 H (10.9-12.4) SEC INR 2.5 H (0.9-1.1) VBG pH 7.44 H (7.32-7.43) VBG pCO2 41 mmHg VBG pO2 49 mmHg VBG HCO3 28 H (22-26) mmol/L VBG O2 Saturation 84.0 % VBG Base Excess 3.9 mmol/L Sodium 137 (135-145) mmol/L Potassium 3.9 (3.3-5.1) mmol/L Chloride 101 (96-108) mmol/L Carbon Dioxide 23 (22-29) mmol/L Anion Gap 17 (12-20) BUN 9 (9-16) mg/dL Creatinine 1.08 (0.5-1.4) mg/dL Estim Creat Clear Calc 76.0 Estimated GFR > 60 Random Glucose 200 H (60-115) mg/dL Lactic Acid 2.5 H* (0.5-2.0) mmol/L Calcium 8.7 D (8.4-10.2) mg/dL Magnesium 1.9 (1.6-2.6) mg/dL Total Bilirubin 1.2 H (0.0-1.0) mg/dL Direct Bilirubin 0.4 (0.0-0.5) mg/dL AST 27 (5-37) U/L ALT 14 (0-40) U/L Alkaline Phosphatase 78 (39-117) U/L Troponin I High Sens 17.3 (<3.5-35.0) ng/L C-Reactive Protein 1.56 H (< or = 0.50) mg/dL B-Natriuretic Peptide 93 (<100) pg/mL Total Protein 6.7 (6.5-8.0) g/dL Albumin 3.6 (3.5-5.0) g/dL Lipase 12 (8-78) U/L Procalcitonin 0.37 ng/mL Influenza Type A (PCR) POSITIVE A (Negative) Influenza Type B (PCR) NEGATIVE (Negative) RSV RNA Qual (PCR) NEGATIVE (Negative) SARS-CoV-2 RNA (RT-PCR) POSITIVE A (Negative) Independent Interpretation I performed an independent interpretation of an: EKG and Plain X-Ray (RLL opacity) Interpretation: Rate: 129 Rhythm: afib [place]: left Normal QRS complex. ST T wave : no PABLO, nonespecific ST T wave changes qTC: 489 prior studies: no acute ischemia The study has been interpreted contemporaneously by me. . Radiology Impression Discussion of test interpretation with radiology: I have reviewed the radiologist's reading. Independent Historian Clinical information obtained from an independent historian. History obtained from or confirmed by: EMS External Record Review External record reviewed: Outpatient record Discharge Plan Discharge Clinical Impression: COVID-19, Influenza A, Pneumonia, Acidosis, lactic Patient Disposition: Admitted As Inpatient Prescriptions: No Action omega-3 fatty acids 500 mg capsule 500 mg PO DAILY acetaminophen 650 mg tablet extended release 1,300 mg PO DAILY Rx Instructions: TAKES IN AM sennosides-docusate sodium [Senokot-S] 8.6-50 mg tablet 2 tab-cap PO BEDTIME Qty: 60 0RF digoxin 250 mcg (0.25 mg) tablet 250 mcg PO 3XW 90 Days Qty: 39 3RF Rx Instructions: 250 mcg orally MWF; carvedilol 6.25 mg tablet 6.25 mg PO BID 90 Days Qty: 180 3RF Protocol: Hold for SBP/HR < HOLD for SBP < : 90 HOLD for HR < : 60 cetirizine 10 mg tablet 10 mg PO DAILY Qty: 90 3RF tamsulosin [Flomax] 0.4 mg capsule 0.8 mg PO BEDTIME Qty: 90 3RF tizanidine 4 mg tablet 4 mg PO BEDTIME Qty: 90 0RF atorvastatin 10 mg tablet 10 mg PO BEDTIME Qty: 90 3RF multivitamin Tablet 1 tab PO DAILY gabapentin 300 mg capsule 300 mg PO BEDTIME cholecalciferol (vitamin D3) [Vitamin D3] 25 mcg (1,000 unit) Tablet 50 mcg PO DAILY warfarin 4 mg tablet 4 mg PO DAILY Protocol: Dose Management Condition: Wednesday (Week One) Dose/Route: 4 mg Instruction: 1 x 4 mg tablet Condition: Wednesday Dose/Route: 4 mg Instruction: 1 x 4 mg tablet Condition: Wednesday Dose/Route: 4 mg Instruction: 1 x 4 mg tablet Condition: Wednesday Dose/Route: 4 mg Instruction: 1 x 4 mg tablet Condition: Dose/Route: 0 mg Instruction: 0 tablets Condition: Wednesday Dose/Route: 4 mg Instruction: 1 x 4 mg tablet Condition: Wednesday Dose/Route: 4 mg Instruction: 1 x 4 mg tablet Condition: Wednesday (Week Two) Dose/Route: 4 mg Instruction: 1 x 4 mg tablet Condition: Wednesday Dose/Route: 4 mg Instruction: 1 x 4 mg tablet Condition: Wednesday Dose/Route: 4 mg Instruction: 1 x 4 mg tablet Condition: Wednesday Dose/Route: 4 mg Instruction: 1 x 4 mg tablet Condition: Dose/Route: 4 mg Instruction: 1 x 4 mg tablet Condition: Wednesday Dose/Route: 4 mg Instruction: 1 x 4 mg tablet Condition: Wednesday Dose/Route: 4 mg Instruction: 1 x 4 mg tablet Protocol Text: Adjustment Start Date: 08/17/24 INR Value: 4.0 INR Date: 08/17/24 Recheck Date: 08/24/24 gabapentin 100 mg capsule 100 mg PO BID duloxetine 20 mg capsule,delayed release(DR/EC) 40 mg PO DAILY dapagliflozin propanediol [Farxiga] 5 mg tablet 5 mg PO DAILY furosemide 20 mg tablet 20 mg PO BID Qty: 90 5RF risperidone 1 mg tablet 1 mg PO BEDTIME Print Language: Occitan
[2024-08-20 19:53] LABS: Venous Blood Gas Refer to POC result
[2024-08-20 19:53] LABS: VBG Base Excess 3.9 mmol/L; VBG HCO3 28 mmol/L (22-26); VBG pCO2 41 mmHg; VBG pH 7.44 (7.32-7.43); VBG pO2 49 mmHg
[2024-08-20 19:54] LABS: Basophils Percent Auto 0.3 % (0-2); Hematocrit 43.7 % (42.0-52.0); Hemoglobin 14.9 g/dl (14.0-18.0); Imm Gran Abs Auto 0.06 X10*3/uL (0.00-0.03); Imm Gran Pct Auto 0.4 % (0.0-0.4); Lymphocytes Absolute Auto 0.4 X10*3/uL (1.2-4.9); MANUAL DIFF FLAG SCAN; Mean Corpuscular HGB Conc 34.1 g/dl (31.0-36.0); Mean Corpuscular Hemoglobin 31.2 pg (27.0-33.0); Mean Corpuscular Volume 91.4 fL (80.0-98.0); Mean Platelet Volume 10.6 fL (9.4-12.4); Monocytes Absolute Auto 0.5 X10*3/uL (0.1-1.2); Monocytes Percent Auto 3.7 % (2-11); Neutrophils Absolute Auto 12.4 x10*3/uL (2.0-8.3); Neutrophils Percent Auto 92.6 % (45-73); Platelet Count 196 X10*3/uL (160-400); Red Blood Count 4.78 X10*6/uL (4.60-5.80); Red Cell Distribution Width 12.1 % (11.0-16.0); SCAN SMEAR FLAG 1; White Blood Count 13.4 X10*3/uL (4.8-10.8)
[2024-08-20] MEDS: levalbuterol HCL 1.25 MG/3 ML VIAL.NEB INHALE (20:05)
[2024-08-20 20:10] LABS: Lactic Acid 2.5 mmol/L (0.5-2.0)
[2024-08-20 20:11] LABS: INTERNATIONAL NORM RATIO 2.5 (0.9-1.1); Prothrombin Time 29.2 SEC (10.9-12.4)
[2024-08-20 20:14] LABS: SLIDE REVIEW VERIFIED
[2024-08-20 20:17] LABS: Alanine Aminotransferase 14 U/L (0-40); Albumin Level 3.6 g/dL (3.5-5.0); Alkaline Phosphatase 78 U/L (39-117); Anion Gap 17 (12-20); Aspartate Amino Transferase 27 U/L (5-37); Bilirubin Direct 0.4 mg/dL (0.0-0.5); Bilirubin Total 1.2 mg/dL (0.0-1.0); Blood Urea Nitrogen 9 mg/dL (9-16); C Reactive Protein 1.56 mg/dL (< or = 0.50); Calcium 8.7 mg/dL (8.4-10.2); Carbon Dioxide 23 mmol/L (22-29); Chloride 101 mmol/L (96-108); Estimated Glomerular Filt Rate > 60; Glucose Random 200 mg/dL (60-115); Lipase 12 U/L (8-78); Magnesium 1.9 mg/dL (1.6-2.6); Potassium 3.9 mmol/L (3.3-5.1); Sodium 137 mmol/L (135-145); Total Protein 6.7 g/dL (6.5-8.0)
[2024-08-20 20:18] LABS: Troponin-I High Sensitivity 17.3 ng/L (<3.5-35.0)
[2024-08-20 20:20] LABS: B Type Natriuretic Peptide 93 pg/mL (<100)
[2024-08-20 20:27] LABS: Influenza A PCR POSITIVE (Negative); Influenza B PCR NEGATIVE (Negative); Resp Syncy Virus RNA Qual PCR NEGATIVE (Negative); SARS COV2 PCR INHOUSE POSITIVE (Negative)
[2024-08-20 20:32] LABS: Procalcitonin 0.37 ng/mL
[2024-08-20] MEDS: Acetaminophen 325 MG TABLET 975 MG PO (20:40)
[2024-08-20] MEDS: methylPREDNISolone Sod Succ 125 MG/2 ML VIAL 60 MG IVPUSH (20:40)
[2024-08-20] MEDS: 0.9 % Sodium Chloride 1,000 ML 999 ML IV (20:41)
[2024-08-20] MEDS: cefTRIAXone sodium 1 GM VIAL IVPUSH (20:48)
[2024-08-20] MEDS: 0.9 % Sodium Chloride 250 ML IV (20:52)
[2024-08-20] MEDS: Doxycycline Hyclate 100 MG in 0.9 % Sodium Chloride 250 ML 166.67 MG IV (20:52)
--- NOTE | 2024-08-20 21:30 | P.HPHOSP_ITS ---
History of Present Illness Date of Service: 08/20/24 Chief Complaint: SOB a 74 years old man with PMH significant for chronic atrial fibrillation on warfarin, essential hypertension, COPD, CAD, anxiety, depression, obstructive sleep apnea on CPAP, GERD and diabetes presents to the ER with SOB and dyspnea for 2-3 days. Tested positive for Flu and Covid19 in ED. CXR showing no clear infiltrates but cardiomegaly and possible fluid overload\congestion. No chest pain, palpitations, vomiting, diarrhea or urinary symptoms. Admitted for IV antibiotics, steroids and Tamiflu for closer monitoring and treatment. Review of Systems 2 Review of Systems: fever, chills & weakness No chest pain, palpitation shortness of breath & coughing No abdominal pain, nausea or vomiting No urinary symptoms No any rash or wounds [facility] Medical History Heart failure with reduced ejection fraction Chest pain, pleuritic Back pain Dyspnea NOEMI on CPAP COPD (chronic obstructive pulmonary disease) CAD (coronary artery disease) HLD (hyperlipidemia) HTN (hypertension) Diabetes Obstructive sleep apnea Morbid obesity Cardiomyopathy Persistent atrial fibrillation Current use of anticoagulant therapy Family History Father HTN (hypertension) Diabetes mellitus Cardiac disease Bone cancer Substance use disorder Mother HTN (hypertension) Lung cancer Surgical History History of knee surgery History of ankle surgery Social History Household Members: None Housing: Apartment Do you presently have 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) Alcohol intake: never Comment: pt refusing bed alarm and red socks Patient Tobacco Use Status: Former Tobacco user Years Smoked: 30 yrs e-Cigarette/Vaping Use: Never Used Second Hand Smoke Exposure: No Advance Directives: No Advance Directives Information Provided: Yes Do you have a plan to hurt others: No Plan service: No Current occupational status: retired and disabled Cognitive needs: No Hearing needs: No Vision needs: Yes Meds Allergies Allergy/AdvReac Type Severity Reaction Status Date / Time iodine [IODINE] Allergy Intermediate HIVES, Verified 08/17/24 13:18 bloating latex [LATEX] Allergy Intermediate HIVES Verified 08/17/24 13:18 shellfish derived Allergy Intermediate ANAPHYLAXIS Verified 08/17/24 13:18 [SHELLFISH DERIVED] lisinopril Allergy Unknown Verified 08/20/24 18:57 Active Medications: Current Medications Doxycycline Hyclate 100 mg/ (Sodium Chloride) 250 mls @ 166.67 mls/hr IV ONCE ONE Stop: 08/20/24 21:57 Last Admin: 08/20/24 20:52 Dose: 166.67 mls/hr Home Medications ?Medication ?Instructions ?Recorded ?Confirmed ?Last Taken ?Type multivitamin 1 tab PO DAILY 10/22/20 08/17/24 08/10/23 History acetaminophen 650 mg 1,300 mg PO DAILY 08/05/21 08/17/24 08/10/23 History tablet,extended release omega-3 fatty acids 500 mg capsule 500 mg PO DAILY 08/05/21 08/17/24 08/10/23 History gabapentin 100 mg capsule 100 mg PO BID 09/25/22 08/17/24 08/10/23 History duloxetine 20 mg capsule,delayed 40 mg PO DAILY 10/16/22 08/17/24 08/10/23 History release cholecalciferol (vitamin D3) 25 50 mcg PO DAILY 12/23/22 08/17/24 08/10/23 History mcg (1,000 unit) tablet (Vitamin D3) gabapentin 300 mg capsule 300 mg PO BEDTIME 12/23/22 08/17/24 08/10/23 History warfarin 4 mg tablet 4 mg PO DAILY 08/12/23 08/17/24 08/10/23 History risperidone 1 mg tablet 1 mg PO BEDTIME 01/14/24 08/17/24 Unknown History dapagliflozin propanediol 5 mg 5 mg PO DAILY 07/27/24 08/17/24 Unknown History tablet (Farxiga) Physical Exam 2 Vital Signs and Narrative: Vital Signs: Last Vital Signs Temp 100 F 08/20/24 18:56 Pulse 109 H 08/20/24 21:03 Resp 20 08/20/24 21:03 BP 117/57 L 08/20/24 21:03 Pulse Ox 96 08/20/24 21:03 O2 Del Method Nasal Cannula 08/20/24 21:03 O2 Flow Rate 2 08/20/24 21:03 BMI result Body Mass Index 30.2 Const: Other: Constitutional : Awake, interactive, not in distress Neck : Normal inspection, Supple Cardiovascular : irregular, no JVP, no lower extremity edema Respiratory : good bilateral air entry, no crackles, bilateral wheezes , on O2 supplement Gastrointestinal: soft, lax, Normal bowel sounds, Non tender Skin : Warm, Dry Neurological : Alert & oriented x3, No focal deficit Results Labs 08/20/24 19:40 08/20/24 19:40 Labs: Laboratory Results - last 24 hr 08/20/24 08/20/24 19:40 19:46 MCV 91.4 MCH 31.2 MCHC 34.1 RDW 12.1 Plt Count 196 MPV 10.6 Immature Gran % (Auto) 0.4 Neut % (Auto) 92.6 H Lymph % (Auto) 3.0 L [place] % (Auto) 3.7 Eos % (Auto) 0.0 Baso % (Auto) 0.3 Lymph # (Auto) 0.4 L [place] # (Auto) 0.5 Eos # (Auto) 0.0 Baso # (Auto) 0.0 Abs Immat Gran (auto) 0.06 H Absolute Neuts (auto) 12.4 H Absolute Nucleated RBC 0.000 Nucleated RBC % (auto) 0.0 Smear Tech's Comments VERIFIED PT 29.2 H INR 2.5 H VBG pH 7.44 H VBG pCO2 41 VBG pO2 49 VBG HCO3 28 H VBG O2 Saturation 84.0 VBG Base Excess 3.9 Anion Gap 17 Estim Creat Clear Calc 76.0 Estimated GFR > 60 Random Glucose 200 H Lactic Acid 2.5 H* Calcium 8.7 D Magnesium 1.9 Total Bilirubin 1.2 H Direct Bilirubin 0.4 AST 27 ALT 14 Alkaline Phosphatase 78 Troponin I High Sens 17.3 C-Reactive Protein 1.56 H B-Natriuretic Peptide 93 Total Protein 6.7 Albumin 3.6 Lipase 12 Procalcitonin 0.37 Influenza Type A (PCR) POSITIVE A Influenza Type B (PCR) NEGATIVE RSV RNA Qual (PCR) NEGATIVE SARS-CoV-2 RNA (RT-PCR) POSITIVE A Assessment and Plan (1) Acidosis, lactic: Status: Acute (2) Influenza A: Status: Acute (3) COVID-19: Status: Acute (4) Viral sepsis: Status: Acute (5) Lactic acidosis: Status: Acute Plan a 74 years old man with PMH significant for chronic atrial fibrillation on warfarin, essential hypertension, COPD, CAD, anxiety, depression, obstructive sleep apnea on CPAP, GERD and diabetes presents to the ER with SOB and dyspnea for 2 days. Viral sepsis 2/2 Flu and Covid19 infection complicated with acute COPD exacerbation and lactic acidosis CXR as reported Lactic acid trendeding down with IVF Start Steroids IV Continue Tamiflu cough medicine no evidence of pneumonia, hold on further Abx Nebulizers Wean O2 down as tolerated Chronic systolic heart failure not in exacerbation continue home meds Atrial fibrillation, rate controlled Continue warfarin, Coreg and digoxin. Check INR daily. Essential hypertension. Continue Coreg. Neuropathy. Continue gabapentin. BPH. Continue tamsulosin. Hyperlipidemia. Continue statin. History of depression. T cntinue bupropion and Cymbalta. Obstructive sleep apnea. Continue nocturnal CPAP. History of diabetes. SSI for now POC, diabetic diet DVT PPx Warafrin pending med rec. The patient will need 2 overnight hospital stay for treatment of hypoxia and viral sepsis causing COPD exacerbation pending clinical improvement. Quality Stroke Does the patient have a stroke diagnosis?: No VTE Prior VTE?: No VTE Risk Level:: Medical - moderate - high VTE Device Contraindication: Treatment Not Indicated VTE Drug Contraindication: N/A - Med Ordered
[2024-08-20 21:32] LABS: Appearance Urine Clear; Color Urine Yellow; Glucose Urine UA >=1000 mg/dL (Negative); Leukocyte Esterase Urine Negative (Negative); Nitrite Urine Negative (Negative); UMIC TRIGGER UACC YES; Urine Blood Negative (Negative); Urine Ketones Negative (Negative); Urine Protein Negative (Neg-Trace)
[2024-08-20 21:37] LABS: Bacteria Urine None Seen (None Seen); Hyaline Casts Urine 0-2 /LPF (0-2); RBC Urine 0-2 /HPF (0-2); Squamous Epithelial Cell Urine 0-2 /HPF (0-2); WBC Urine 0-5 /HPF (0-5)
[2024-08-20 21:46] LABS: Reflex Lactate? Lactic Acid Added
[2024-08-20] MEDS: Oseltamivir Phosphate 30 MG CAPSULE PO (22:11)
[2024-08-20] MEDS: OSELTAMIVIR PHOSPHATE PO (22:12)
[2024-08-20] MEDS: Lactated Ringers 1,000 ML 999 ML IV (22:12)
[2024-08-20 22:48] LABS: ~Lactic Acid-LAB USE ONLY 2.3 mmol/L (0.5-2.0)
[2024-08-20 22:53] LABS: Cancel Lactic Acid Canceled
[2024-08-21] VITALS (14 sets, daily range): BP systolic 92–141; BP diastolic 46–78; PULSE 69–114; RESP 16–24; TEMP 36.1–36.3; O2SAT 94–98
[2024-08-21] MEDS: 0.9 % Sodium Chloride 1,000 ML 100 ML IVCONT (00:30)
[2024-08-21] MEDS: Benzonatate 100 MG CAPSULE PO ×2 (03:39→10:51)
[2024-08-21] MEDS: Acetaminophen 325 MG TABLET 650 MG PO (03:42)
[2024-08-21 06:21] LABS: Hematocrit 39.4 % (42.0-52.0); Hemoglobin 13.3 g/dl (14.0-18.0); Mean Corpuscular HGB Conc 33.8 g/dl (31.0-36.0); Mean Corpuscular Hemoglobin 31.5 pg (27.0-33.0); Mean Corpuscular Volume 93.4 fL (80.0-98.0); Mean Platelet Volume 10.5 fL (9.4-12.4); Platelet Count 194 X10*3/uL (160-400); Red Blood Count 4.22 X10*6/uL (4.60-5.80); Red Cell Distribution Width 12.2 % (11.0-16.0); White Blood Count 12.9 X10*3/uL (4.8-10.8)
[2024-08-21 06:24] LABS: INTERNATIONAL NORM RATIO 2.4 (0.9-1.1); Prothrombin Time 28.2 SEC (10.9-12.4)
[2024-08-21 06:34] LABS: Alanine Aminotransferase 12 U/L (0-40); Albumin Level 3.5 g/dL (3.5-5.0); Alkaline Phosphatase 68 U/L (39-117); Anion Gap 13 (12-20); Aspartate Amino Transferase 28 U/L (5-37); Bilirubin Total 0.7 mg/dL (0.0-1.0); Blood Urea Nitrogen 12 mg/dL (9-16); Calcium 8.2 mg/dL (8.4-10.2); Carbon Dioxide 23 mmol/L (22-29); Chloride 104 mmol/L (96-108); Creatinine Clr Calc Pharmacy 87.4; Estimated Glomerular Filt Rate > 60; Glucose Random 163 mg/dL (60-115); Potassium 3.9 mmol/L (3.3-5.1); Sodium 136 mmol/L (135-145); Total Protein 6.5 g/dL (6.5-8.0)
[2024-08-21 07:12] LABS: Glucose, Whole Blood 220 mg/dL (60-115)
[2024-08-21] MEDS: Albuterol/Iprat 2.5/0.5MG 3 ML AMPUL.NEB INHALE ×2 (07:13→20:17)
[2024-08-21 07:59] LABS: Glucose, Whole Blood 145 mg/dL (60-115)
[2024-08-21] MEDS: methylPREDNISolone Sod Succ 40 MG/ML VIAL IVPUSH ×2 (08:48→22:20)
[2024-08-21] MEDS: Oseltamivir Phosphate 30 MG CAPSULE PO ×2 (08:49→22:20)
[2024-08-21] MEDS: OSELTAMIVIR PHOSPHATE PO ×2 (08:49→22:21)
[2024-08-21] MEDS: 0.9 % Sodium Chloride Flush 3 ML SYRINGE IVFLUSH ×4 (08:49→22:25)
--- NOTE | 2024-08-21 09:40 | PHA.MEDREC ---
Addendum entered by Conchita Ayon RPh 08/21/24 10:09: reviewed by [facility]. Original Note: Pharmacy Consult ? Medication Reconciliation Pharmacy has completed the medication reconciliation. Spoke to patient to patient to confirm med list. Patient states he no longer takes Cetirizine 10 mag and Sennoside 8.6-docusate sod 50 mg. Patient confirmed Warfarin 4 mg daily, Gabapentin 300 mg qam and Gsbapentin 100 mg at bedtime. Patient states he takes Risperidone 1 mg is BID , however claims has patient filling Risperidone 1 mg Daily. Left what claims has.
[2024-08-21] MEDS: carvediloL 6.25 MG TABLET PO ×2 (10:43→22:21)
[2024-08-21 11:10] LABS: Glucose, Whole Blood 186 mg/dL (60-115)
--- NOTE | 2024-08-21 11:15 | MHC.CM.PN ---
IMM 08/21/24. EMR REVIEWED, PT W/COVID/FLU, CM MET W/PT WHO REPORTS HE LIVES ALONE, HAS A CANE FOR STAIRS, WALKER FOR ALL OTHER MOBILITY AND A CPAP, PT REQUESTING A CPAP FOR AT [facility] SINCE HE HAS NOT HAD ONE THIS ADMIT. PT'S GOAL FOR DC IS HOME, PT OPEN TO NEW VNA IF RECOMMENDED. PT VERIFIES PCP ON FILE, PT EDUCATED ON HCP'S AND WOULD LIKE TO COMPLETE ONE PRIOR TO DC HOWEVER DECLINES TO COMPLETE ONE AT THIS TIME AND AWARE HE CAN ASK FOR CM WHEN HE IS READY.
[2024-08-21] MEDS: Insulin Lispro 100 UNIT/ML 3 ML VIAL SUBCUT ×3 (11:53→22:20)
--- NOTE | 2024-08-21 15:09 | P.PNIM_ITS ---
Subjective Subjective Date of Service: 08/21/24 Interval History: No acute issues overnight. Discussed with staff. No improvement per patient Review of Systems Denies chest pain Denies shortness of breath Denies nausea vomiting diarrhea Denies fever chills Physical Exam 2 Vital Signs: Vital Signs: Last Vital Signs Temp 97.4 F 08/21/24 11:01 Pulse 114 H 08/21/24 11:01 Resp 24 H 08/21/24 12:45 BP 140/73 H 08/21/24 11:01 Pulse Ox 96 08/21/24 11:01 O2 Del Method Room Air 08/21/24 11:01 O2 Flow Rate 2 08/21/24 02:00 BMI result Body Mass Index 30.2 Const: Other: Awake alert no acute distress Resp: Other: Clear to auscultation bilaterally no rales wheezes Cardio: Other: No S4; positive S1-S2; no S3 murmurs rubs or gallops GI: Other: Obese; positive bowel sounds x4 quadrants Neuro: Other: Cranial nerves 2-12 grossly intact as tested. Motor is 5/5 all extremities. Sensation is intact. Cognition appropriate. Gait not examined Extrem: Other: No edema bilaterally Objective Data Active Medications Acetaminophen (Acetaminophen 325 Mg Tablet) 650 mg PO Q6H PRN PRN Reason: Pain, Mild 1-3,fever,headache Last Admin: 08/21/24 03:42 Dose: 650 mg Documented By: ELFEGO Albuterol Sulfate (Albuterol Sulfate (0.083%) 2.5 Mg/3 Ml Vial.Neb) 2.5 mg INHALE Q4H PRN PRN Reason: Shortness of Breath/Wheezing Albuterol/Ipratropium (Albuterol/Iprat 2.5/0.5mg 3 Ml Ampul.Neb) 3 ml INHALE RQ6H WHILE AWAKE FORMERLY [facility], [facility]–1983 Last Admin: 08/21/24 13:16 Dose: Not Given Documented By: SANJUANA Non-Admin Reason: Patient Asleep Benzonatate (Benzonatate 100 Mg Capsule) 100 mg PO TID PRN PRN Reason: Cough Last Admin: 08/21/24 10:51 Dose: 100 mg Documented By: VIKKI Calcium Carbonate (Calcium Carbonate 750 Mg Tab.Chew) 750 mg PO Q4H PRN PRN Reason: Heartburn Carvedilol (Carvedilol 6.25 Mg Tablet) 6.25 mg PO BID FOR[facility]LY [facility], [facility]; Protocol Last Admin: 08/21/24 10:43 Dose: 6.25 mg Documented By: VIKKI Gabapentin (Gabapentin 300 Mg Capsule) 100 mg PO BEDTIME FOR[facility]LY [facility], [facility]–1983 Insulin Human Lispro (Insulin Lispro 100 Unit/Ml 3 Ml Vial) 0 unit SUBCUT QIDACHS FORMERLY [facility], [facility]–1983; Protocol Last Admin: 08/21/24 11:53 Dose: 2 unit Documented By: VIKKI Magnesium Hydroxide (Milk Of Magnesia 30 Ml Oral.Susp) 30 ml PO DAILY PRN PRN Reason: Constipation Melatonin (Melatonin 3 Mg Tablet) 6 mg PO BEDTIME PRN PRN Reason: Insomnia Methylprednisolone Sodium Succinate (Methylprednisolone Sod Succ 40 Mg/Ml Vial) 40 mg IVPUSH Q12H [facility], [facility] Last Admin: 08/21/24 08:48 Dose: 40 mg Documented By: VIKKI Ondansetron HCl (Ondansetron Hcl 4 Mg/2 Ml Vial) 4 mg IVPUSH Q8H PRN PRN Reason: Nausea and Vomiting Oseltamivir Phosphate (Oseltamivir Phosphate 30 Mg Capsule) 30 mg PO BID [facility], [facility] Stop: 08/25/24 21:01 Last Admin: 08/21/24 08:49 Dose: 30 mg Documented By: VIKKI Oseltamivir Phosphate (Oseltamivir Phosphate 45 Mg Capsule) 45 mg PO BID [facility], [facility] Stop: 08/25/24 21:01 Last Admin: 08/21/24 08:49 Dose: 45 mg Documented By: VIKKI Risperidone (Risperidone 1 Mg Tablet) 1 mg PO BEDTIME [facility], [facility] Sodium Chloride (0.9 % Sodium Chloride Flush 3 Ml Syringe) [facility] Last Admin: 08/21/24 08:49 Dose: 3 ml Documented By: VIKKI Tamsulosin HCl (Tamsulosin Hcl 0.4 Mg Capsule) 0.8 mg PO BEDTIME [facility], [facility] Tizanidine HCl (Tizanidine Hcl 4 Mg Tablet) 4 mg PO BEDTIME [facility], [facility] Warfarin Sodium (Warfarin Sodium 4 Mg Tablet) 4 mg PO DAILY@1800 FOR[facility], [facility] Labs 08/21/24 06:05 08/21/24 06:05 Labs: Laboratory Results - last 24 hr 08/20/24 08/20/24 08/20/24 19:40 19:46 20:44 MCV 91.4 MCH 31.2 MCHC 34.1 RDW 12.1 Plt Count 196 MPV 10.6 Immature Gran % (Auto) 0.4 Neut % (Auto) 92.6 H Lymph % (Auto) 3.0 L [place] % (Auto) 3.7 Eos % (Auto) 0.0 Baso % (Auto) 0.3 Lymph # (Auto) 0.4 L [place] # (Auto) 0.5 Eos # (Auto) 0.0 Baso # (Auto) 0.0 Abs Immat Gran (auto) 0.06 H Absolute Neuts (auto) 12.4 H Absolute Nucleated RBC 0.000 Nucleated RBC % (auto) 0.0 Smear Tech's Comments VERIFIED PT 29.2 H INR 2.5 H VBG pH 7.44 H VBG pCO2 41 VBG pO2 49 VBG HCO3 28 H VBG O2 Saturation 84.0 VBG Base Excess 3.9 Anion Gap 17 Estim Creat Clear Calc 76.0 Estimated GFR > 60 POC Glucose Random Glucose 200 H Lactic Acid 2.5 H* Lactic Acid F/U @ 2Hr Calcium 8.7 D Magnesium 1.9 Total Bilirubin 1.2 H Direct Bilirubin 0.4 AST 27 ALT 14 Alkaline Phosphatase 78 Troponin I High Sens 17.3 C-Reactive Protein 1.56 H B-Natriuretic Peptide 93 Total Protein 6.7 Albumin 3.6 Lipase 12 Procalcitonin 0.37 Urine Color Yellow Urine Appearance Clear Urine pH 6.0 Ur Specific [place] 1.020 Urine Protein Negative Urine Glucose (UA) >=1000 H Urine Ketones Negative Urine Blood Negative Urine Nitrite Negative Ur Leukocyte Esterase Negative Urine RBC 0-2 Urine WBC 0-5 Ur Squamous Epith Cells 0-2 Urine Bacteria None Seen Hyaline Casts 0-2 Influenza Type A (PCR) POSITIVE A Influenza Type B (PCR) NEGATIVE RSV RNA Qual (PCR) NEGATIVE SARS-CoV-2 RNA (RT-PCR) POSITIVE A 08/20/24 08/21/24 08/21/24 22:18 02:52 06:05 MCV 93.4 MCH 31.5 MCHC 33.8 RDW 12.2 Plt Count 194 MPV 10.5 Immature Gran % (Auto) Neut % (Auto) Lymph % (Auto) [place] % (Auto) Eos % (Auto) Baso % (Auto) Lymph # (Auto) [place] # (Auto) Eos # (Auto) Baso # (Auto) Abs Immat Gran (auto) Absolute Neuts (auto) Absolute Nucleated RBC 0.000 Nucleated RBC % (auto) 0.0 Smear Tech's Comments PT 28.2 H INR 2.4 H VBG pH VBG pCO2 VBG pO2 VBG HCO3 VBG O2 Saturation VBG Base Excess Anion Gap 13 Estim Creat Clear Calc 87.4 Estimated GFR > 60 POC Glucose 220 H Random Glucose 163 H Lactic Acid Lactic Acid F/U @ 2Hr 2.3 H* Calcium 8.2 L Magnesium Total Bilirubin 0.7 Direct Bilirubin AST 28 ALT 12 Alkaline Phosphatase 68 Troponin I High Sens C-Reactive Protein B-Natriuretic Peptide Total Protein 6.5 Albumin 3.5 Lipase Procalcitonin Urine Color Urine Appearance Urine pH Ur Specific [place] Urine Protein Urine Glucose (UA) Urine Ketones Urine Blood Urine Nitrite Ur Leukocyte Esterase Urine RBC Urine WBC Ur Squamous Epith Cells Urine Bacteria Hyaline Casts Influenza Type A (PCR) Influenza Type B (PCR) RSV RNA Qual (PCR) SARS-CoV-2 RNA (RT-PCR) 08/21/24 08/21/24 07:54 11:03 MCV MCH MCHC RDW Plt Count MPV Immature Gran % (Auto) Neut % (Auto) Lymph % (Auto) [place] % (Auto) Eos % (Auto) Baso % (Auto) Lymph # (Auto) [place] # (Auto) Eos # (Auto) Baso # (Auto) Abs Immat Gran (auto) Absolute Neuts (auto) Absolute Nucleated RBC Nucleated RBC % (auto) Smear Tech's Comments PT INR VBG pH VBG pCO2 VBG pO2 VBG HCO3 VBG O2 Saturation VBG Base Excess Anion Gap Estim Creat Clear Calc Estimated GFR POC Glucose 145 H 186 H Random Glucose Lactic Acid Lactic Acid F/U @ 2Hr Calcium Magnesium Total Bilirubin Direct Bilirubin AST ALT Alkaline Phosphatase Troponin I High Sens C-Reactive Protein B-Natriuretic Peptide Total Protein Albumin Lipase Procalcitonin Urine Color Urine Appearance Urine pH Ur Specific [place] Urine Protein Urine Glucose (UA) Urine Ketones Urine Blood Urine Nitrite Ur Leukocyte Esterase Urine RBC Urine WBC Ur Squamous Epith Cells Urine Bacteria Hyaline Casts Influenza Type A (PCR) Influenza Type B (PCR) RSV RNA Qual (PCR) SARS-CoV-2 RNA (RT-PCR) Assessment and Plan (1) COVID-19: Status: Acute (2) Influenza A: Status: Acute Plan 74 years old man with PMH significant for chronic atrial fibrillation on warfarin, essential hypertension, COPD, CAD, anxiety, depression, obstructive sleep apnea on CPAP, GERD and diabetes presents to the ER with SOB and dyspnea for 2 days. 1.Viral sepsis 2/2 Flu/Covid19 infection complicated with acute COPD exacerbation -Tamiflu as ordered -IV Solu-Medrol -check procalcitonin in a.m. 2..Chronic systolic heart failure -stable and well compensated -continue outpatient therapies -follow renals/divalents 3. Chronic Atrial fibrillation -acceptable rate control -continue current therapies including warfarin -daily PT INR 4.Essential hypertension. -acceptable control on current therapies -adjust as indicated 5. Diabetes type 2 -acceptable control -lispro correctional scale -adjust as indicated Coumadin Full code Quality Stroke Does the patient have a stroke diagnosis?: No VTE Prior VTE?: No VTE Risk Level:: Medical - moderate - high VTE Device Contraindication: Treatment Not Indicated VTE Drug Contraindication: N/A - Med Ordered
[2024-08-21] MEDS: buPROPion HCL 100 MG TABLET PO ×2 (15:50→22:22)
[2024-08-21] MEDS: DULoxetine HCl 20 MG CAPSULE.DR 40 MG PO (15:50)
[2024-08-21] MEDS: Multivitamin TABLET 1 TAB PO (15:50)
[2024-08-21 16:28] LABS: Glucose, Whole Blood 180 mg/dL (60-115)
[2024-08-21] MEDS: Warfarin Sodium 4 MG TABLET PO (18:00)
[2024-08-21 21:11] LABS: Glucose, Whole Blood 158 mg/dL (60-115)
[2024-08-21] MEDS: TiZANidine HCL 4 MG TABLET PO (22:20)
[2024-08-21] MEDS: Atorvastatin Calcium 10 MG TABLET PO (22:21)
[2024-08-21] MEDS: Tamsulosin HCL 0.4 MG CAPSULE 0.8 MG PO (22:21)
[2024-08-21] MEDS: risperiDONE 1 MG TABLET PO (22:21)
[2024-08-21] MEDS: Gabapentin 100 MG CAPSULE PO (22:22)
[2024-08-22 03:19] VITALS: BP 135/78; PULSE 97; RESP 18; TEMP 36.1; O2SAT 93
[2024-08-22 06:26] LABS: Basophils Percent Auto 0.1 % (0-2); Hematocrit 41.7 % (42.0-52.0); Hemoglobin 13.9 g/dl (14.0-18.0); Imm Gran Abs Auto 0.04 X10*3/uL (0.00-0.03); Imm Gran Pct Auto 0.4 % (0.0-0.4); Lymphocytes Absolute Auto 0.5 X10*3/uL (1.2-4.9); Lymphocytes Percent Auto 5.4 % (20-40); MANUAL DIFF FLAG SCAN; Mean Corpuscular HGB Conc 33.3 g/dl (31.0-36.0); Mean Corpuscular Hemoglobin 31.2 pg (27.0-33.0); Mean Corpuscular Volume 93.7 fL (80.0-98.0); Mean Platelet Volume 10.7 fL (9.4-12.4); Monocytes Absolute Auto 0.2 X10*3/uL (0.1-1.2); Monocytes Percent Auto 2.2 % (2-11); Neutrophils Absolute Auto 8.5 x10*3/uL (2.0-8.3); Neutrophils Percent Auto 91.9 % (45-73); Platelet Count 195 X10*3/uL (160-400); Red Blood Count 4.45 X10*6/uL (4.60-5.80); Red Cell Distribution Width 12.2 % (11.0-16.0); SCAN SMEAR FLAG 1; White Blood Count 9.2 X10*3/uL (4.8-10.8)
[2024-08-22 06:43] LABS: INTERNATIONAL NORM RATIO 2.1 (0.9-1.1)
[2024-08-22 06:52] LABS: Alanine Aminotransferase 16 U/L (0-40); Albumin Level 3.6 g/dL (3.5-5.0); Alkaline Phosphatase 64 U/L (39-117); Anion Gap 14 (12-20); Aspartate Amino Transferase 33 U/L (5-37); Bilirubin Total 0.6 mg/dL (0.0-1.0); Blood Urea Nitrogen 16 mg/dL (9-16); Calcium 8.6 mg/dL (8.4-10.2); Carbon Dioxide 23 mmol/L (22-29); Chloride 103 mmol/L (96-108); Creatinine Clr Calc Pharmacy 96.6; Estimated Glomerular Filt Rate > 60; Glucose Fasting 182 mg/dL (60-99); Potassium 4.2 mmol/L (3.3-5.1); Sodium 136 mmol/L (135-145); Total Protein 6.8 g/dL (6.5-8.0)
[2024-08-22 07:01] LABS: SLIDE REVIEW VERIFIED
[2024-08-22 07:06] LABS: Procalcitonin 1.14 ng/mL
[2024-08-22 07:10] VITALS: BP 115/63; PULSE 93; RESP 18; TEMP 36.2; O2SAT 95
[2024-08-22 07:32] LABS: Glucose, Whole Blood 182 mg/dL (60-115)
[2024-08-22] MEDS: Albuterol/Iprat 2.5/0.5MG 3 ML AMPUL.NEB INHALE (07:45)
[2024-08-22 07:47] VITALS: PULSE 10; RESP 18; O2SAT 96
[2024-08-22] MEDS: buPROPion HCL 100 MG TABLET PO ×2 (08:20→13:09)
[2024-08-22 08:21] VITALS: BP 115/63; PULSE 10
[2024-08-22] MEDS: Empagliflozin 10 MG TABLET PO (08:21)
[2024-08-22] MEDS: methylPREDNISolone Sod Succ 40 MG/ML VIAL IVPUSH (08:21)
[2024-08-22] MEDS: carvediloL 6.25 MG TABLET PO (08:21)
[2024-08-22] MEDS: DULoxetine HCl 20 MG CAPSULE.DR 40 MG PO (08:21)
[2024-08-22] MEDS: Multivitamin TABLET 1 TAB PO (08:21)
[2024-08-22] MEDS: Oseltamivir Phosphate 30 MG CAPSULE PO (08:21)
[2024-08-22] MEDS: OSELTAMIVIR PHOSPHATE PO (08:21)
[2024-08-22] MEDS: Insulin Lispro 100 UNIT/ML 3 ML VIAL SUBCUT ×2 (08:21→13:09)
[2024-08-22] MEDS: 0.9 % Sodium Chloride Flush 3 ML SYRINGE IVFLUSH (08:22)
[2024-08-22 11:31] VITALS: BP 130/78; PULSE 84; RESP 18; TEMP 36.2; O2SAT 97
[2024-08-22 11:32] LABS: Glucose, Whole Blood 174 mg/dL (60-115)
--- NOTE | 2024-08-22 12:27 | PM.DS ---
DS: Providers Provider Date of Service: 08/22/24 Date of admission: 08/20/24 22:41 Date of discharge: 08/22/24 Primary care physician: Jaylon Carvajal MD DS: Diagnosis Discharge Diagnosis (1) COVID-19: Status: Acute (2) Influenza A: Status: Acute DS: Summary Hospital Course Hospital Course: 74 years old man with PMH significant for chronic atrial fibrillation on warfarin, essential hypertension, COPD, CAD, anxiety, depression, obstructive sleep apnea on CPAP, GERD and diabetes presents to the ER with SOB and dyspnea for 2-3 days. Tested positive for Flu and Covid19 in ED. CXR showing no clear infiltrates but cardiomegaly and possible fluid overload\congestion. No chest pain, palpitations, vomiting, diarrhea or urinary symptoms. Admitted for IV antibiotics, steroids and Tamiflu for closer monitoring and treatment. Hospital Course Patient admitted to telemetry started on pulse dose methylprednisolone and Tamiflu. Over the next 24 hours he failed to require oxygen and on the day of discharge with ambulatory in the room asking for discharge. At this point, patient has remained afebrile and blood cultures are negative times 24 hours. Given his high functional status patient is medically acceptable to discharge to home. He will complete an oral prednisone taper along with a course of Tamiflu. He will follow up with his PCP next available. Time Attestation Discharge Coordination Time (in mins): 35 Quality: Safe Use of Opioids Does Pt have an Active Cancer Diagnosis on the Problem List?: No Quality: Stroke Does the patient have a stroke diagnosis?: No Physical Exam Vital Signs: Vital Signs: Last Vital Signs Temp 97.2 F 08/22/24 11:31 Pulse 84 08/22/24 11:31 Resp 18 08/22/24 11:31 BP 130/78 08/22/24 11:31 Pulse Ox 97 08/22/24 11:31 O2 Del Method Room Air 08/22/24 11:31 O2 Flow Rate 2 08/21/24 02:00 BMI result Body Mass Index 30.2 Const: Other: Awake alert no acute distress Resp: Other: Clear to auscultation bilaterally no rales wheezes Cardio: Other: No S4; positive S1-S2; no S3 murmurs rubs or gallops GI: Other: Obese; positive bowel sounds x4 quadrants Neuro: Other: Cranial nerves 2-12 grossly intact as tested. Motor is 5/5 all extremities. Sensation is intact. Cognition appropriate. Gait not examined Extrem: Other: No edema bilaterally DS: Data Data Completed and Pending Completed studies during hospitalization [Text1]: Procedures Assistance with Respiratory Ventilation, Less than 24 Consecutive Hours, Continuous Positive Airway Pressure (12/23/22) Labs on day of discharge: Laboratory Results - last 24 hr 08/21/24 08/21/24 08/22/24 16:25 21:01 06:15 WBC 9.2 RBC 4.45 L Hgb 13.9 L Hct 41.7 L MCV 93.7 MCH 31.2 MCHC 33.3 RDW 12.2 Plt Count 195 MPV 10.7 Immature Gran % (Auto) 0.4 Neut % (Auto) 91.9 H Lymph % (Auto) 5.4 L [place] % (Auto) 2.2 Eos % (Auto) 0.0 Baso % (Auto) 0.1 Lymph # (Auto) 0.5 L [place] # (Auto) 0.2 Eos # (Auto) 0.0 Baso # (Auto) 0.0 Abs Immat Gran (auto) 0.04 H Absolute Neuts (auto) 8.5 H Absolute Nucleated RBC 0.000 Nucleated RBC % (auto) 0.0 Smear Tech's Comments VERIFIED PT 25.0 H INR 2.1 H Sodium 136 Potassium 4.2 Chloride 103 Carbon Dioxide 23 Anion Gap 14 BUN 16 Creatinine 0.85 Estim Creat Clear Calc 96.6 Estimated GFR > 60 POC Glucose 180 H 158 H Fasting Glucose 182 H Calcium 8.6 Total Bilirubin 0.6 AST 33 ALT 16 Alkaline Phosphatase 64 Total Protein 6.8 Albumin 3.6 Procalcitonin 1.14 08/22/24 08/22/24 07:15 11:29 WBC RBC Hgb Hct MCV MCH MCHC RDW Plt Count MPV Immature Gran % (Auto) Neut % (Auto) Lymph % (Auto) [place] % (Auto) Eos % (Auto) Baso % (Auto) Lymph # (Auto) [place] # (Auto) Eos # (Auto) Baso # (Auto) Abs Immat Gran (auto) Absolute Neuts (auto) Absolute Nucleated RBC Nucleated RBC % (auto) Smear Tech's Comments PT INR Sodium Potassium Chloride Carbon Dioxide Anion Gap BUN Creatinine Estim Creat Clear Calc Estimated GFR POC Glucose 182 H 174 H Fasting Glucose Calcium Total Bilirubin AST ALT Alkaline Phosphatase Total Protein Albumin Procalcitonin Preliminary micro results at discharge 08/20/24 20:44 Blood Culture - Preliminary Blood - Venous No growth after 24 hours. 08/20/24 20:44 Blood Culture - Preliminary Blood - Venous No growth after 24 hours. Discharge Plan Discharge Anticipated Discharge Date/Time: 08/22/24 12:24 Patient Disposition: Home Health Service Discharge Diagnosis: Viral sepsis secondary to influenza/COVID-19 infections Referrals: Jaylon Carvajal MD [Primary Care Provider] - 1 Week Discharge Medications: New oseltamivir 30 mg Capsule 30 mg PO BID Qty: 12 0RF oseltamivir 45 mg Capsule 45 mg PO BID Qty: 12 0RF prednisone 20 mg tablet See Rx Instructions .Route .COMPLEX Qty: 18 0RF Rx Instructions: 20 mg orally; 3 tabs daily for 3 days, 2 tabs daily for 3 days, 1 tab daily for 3 days Continued omega-3 fatty acids 500 mg capsule 500 mg PO DAILY acetaminophen 650 mg tablet extended release 1,300 mg PO BID PRN (Reason: Pain) carvedilol 6.25 mg tablet 6.25 mg PO BID 90 Days Qty: 180 3RF Protocol: Hold for SBP/HR < HOLD for SBP < : 90 HOLD for HR < : 60 tamsulosin [Flomax] 0.4 mg capsule 0.8 mg PO BEDTIME Qty: 90 3RF tizanidine 4 mg tablet 4 mg PO BEDTIME Qty: 90 0RF atorvastatin 10 mg tablet 10 mg PO BEDTIME Qty: 90 3RF multivitamin Tablet 1 tab PO DAILY gabapentin 300 mg capsule 300 mg PO DAILY cholecalciferol (vitamin D3) [Vitamin D3] 25 mcg (1,000 unit) Tablet 50 mcg PO DAILY bupropion HCl 100 mg tablet 100 mg PO TID dapagliflozin propanediol [Farxiga] 5 mg tablet 5 mg PO DAILY warfarin 4 mg tablet 4 mg PO DAILY digoxin 250 mcg (0.25 mg) tablet 250 mcg PO MOWEFR@0900 Rx Instructions: 250 mcg orally MWF; gabapentin 100 mg capsule 100 mg PO BEDTIME duloxetine 20 mg capsule,delayed release(DR/EC) 40 mg PO DAILY furosemide 20 mg tablet 20 mg PO BID Qty: 90 5RF risperidone 1 mg tablet 1 mg PO BEDTIME Discharge Orders: Discharge Order (Routine); Ordered 02/04/25 Ordered By: Danielito Villafuerte Diet: Advance to usual diet Activity on Discharge: As tolerated Stand Alone Forms: Patient Portal Discharge page Print Language: Italian Care Plan Goals: Prednisone taper has been added to your regimen. Take as ordered. Tamiflu was started in the hospital complete dosing as instructed on bottle Health Concerns: Resume all other medications as taken prior to hospitalization Plan of Treatment: We will attempt VNA services to monitor your INR which may change with prednisone dosing Assessment: Follow up with your PCP next available
--- NOTE | 2024-08-22 12:35 | P.F2F_ITS ---
Service Date Service Date: 08/22/24 Encounter Date of encounter: 08/22/24 Encounter: Acute hospitalization Reasons for Services Signs and symptoms assessed: Monitor INR and overall respiratory status and well-being Reason for correction: monitoring of PT/INR and medication management Homebound: Leaving the home is medically contraindicated at this time without the asist of a device and/or another person due th the listed conditions above and below. Reason homebound: unsteady gait / fall risk and unable to drive Certification: Based on the above findings, I certify that this patient is confined to the home and needs intermittent correction care, physical therapy and/or speech therapy, or continues to need occupational therapy. The patient is under my care, and I have initiated the establishment of the plan of care. The patient will be followed by a physician who will periodically review the plan of care. Time Spent With Patient Time: Total time managing care of this patient today ____ minutes.
--- NOTE | 2024-08-22 12:57 | MHC.CM.PN ---
PT MEDICALLY CLEARED FOR DC HOME W/NEW VNA FOR SN, CM WAITING FOR COMFORT PLUS TO CONFIRM, LYFT FOR TRANSPORT AT 2PM.
== END 2024-08-22 14:15 | disposition home health service (06) | DRG 871 ==
LOC: HO.ED 21:14 → HO.EDOVER 22:49 → HO.IMC 08-21 00:52
PROVIDERS: Admitting Provider Student in an Organized Health Care Education/Training Program; Emergency Provider Emergency Medicine; PCP Internal Medicine; Visit Provider Hospitalist
DX: A41.89 Other specified sepsis (principal); U07.1 COVID-19; I48.20 Chronic atrial fibrillation, unspecified; I50.22 Chronic systolic (congestive) heart failure; J44.1 Chronic obstructive pulmonary disease with (acute) exacerbation; E11.40 Type 2 diabetes mellitus with diabetic neuropathy, unspecified; N40.0 Benign prostatic hyperplasia without lower urinary tract symptoms; J10.1 Influenza due to other identified influenza virus with other respiratory manifestations; G47.33 Obstructive sleep apnea (adult) (pediatric); I11.0 Hypertensive heart disease with heart failure; I25.10 Atherosclerotic heart disease of native coronary artery without angina pectoris; E86.0 Dehydration; I95.9 Hypotension, unspecified; Z79.01 Long term (current) use of anticoagulants; Z79.899 Other long term (current) drug therapy
CPT/HCPCS: 0241U; 36415; 71045; 80048; 80053; 80076; 81001; 81003; 82803; 82947; 83605; 83690; 83735; 83880; 84145; 84484; 85025; 85027; 85610; 86140; 87040; 93005; 94640; 94660; 99285; J0696; J2919; J7120

== ENCOUNTER → 2024-08-20 18:52 | Outpatient (BNV) | payer MEDICARE, MEDICAID, SELFPAY | PROVIDERS: Admitting Provider Student in an Organized Health Care Education/Training Program; Emergency Provider Emergency Medicine; PCP Internal Medicine; Visit Provider Internal Medicine Cardiovascular Disease | DX: I48.91 Unspecified atrial fibrillation (principal) | CPT/HCPCS: 93010 ==

== ENCOUNTER → 2024-08-20 18:53 | Outpatient (BNV) | payer MEDICARE, MEDICAID, SELFPAY | PROVIDERS: Emergency Provider Emergency Medicine; PCP Internal Medicine; Visit Provider Radiology Diagnostic Radiology | DX: I51.7 Cardiomegaly (principal); I50.9 Heart failure, unspecified | CPT/HCPCS: 71045 ==

== ENCOUNTER → 2024-08-20 22:41 | Outpatient (BNV) | payer MEDICARE, MEDICAID, SELFPAY | PROVIDERS: Admitting Provider Student in an Organized Health Care Education/Training Program; Emergency Provider Emergency Medicine; PCP Internal Medicine; Visit Provider Student in an Organized Health Care Education/Training Program | DX: E87.20 Acidosis, unspecified (principal); J10.1 Influenza due to other identified influenza virus with other respiratory manifestations; U07.1 COVID-19; A41.89 Other specified sepsis; B97.89 Other viral agents as the cause of diseases classified elsewhere | CPT/HCPCS: 99223; 99232; 99239; G0180 ==

== ENCOUNTER 2024-08-23 08:32 | Emergency (ER) | payer MEDICARE, MEDICAID, SELFPAY ==
--- NOTE | 2024-08-23 | ECG_ITS ---
Test Reason : chest pain Blood Pressure : */* mmHG Vent. Rate : 129 BPM Atrial Rate : * BPM P-R Int : * ms QRS Dur : 100 ms QT Int : 306 ms P-R-T Axes : * -41 102 degrees QTcB Int : 448 ms Atrial fibrillation with rapid ventricular response Left axis deviation Cannot rule out Anterior infarct , age undetermined Abnormal ECG When compared with ECG of 20-Aug-2024 19:13, ST no longer depressed in Lateral leads Referred By: Generic ED Physician Electronically Signed By: Campbell Petty
[2024-08-23 08:37] VITALS: BP 131/58; PULSE 130; O2SAT 96
[2024-08-23 08:43] VITALS: BP 115/72; PULSE 127; RESP 18; TEMP 36.5; O2SAT 95; BMI 40.4
[2024-08-23 09:12] LABS: Basophils Percent Auto 0.1 % (0-2); Eosinophils Percent Auto 0.1 % (0-4); Hematocrit 43.7 % (42.0-52.0); Hemoglobin 14.6 g/dl (14.0-18.0); Imm Gran Pct Auto 0.7 % (0.0-0.4); Lymphocytes Absolute Auto 0.6 X10*3/uL (1.2-4.9); Lymphocytes Percent Auto 3.8 % (20-40); MANUAL DIFF FLAG SCAN; Mean Corpuscular HGB Conc 33.4 g/dl (31.0-36.0); Mean Corpuscular Hemoglobin 31.3 pg (27.0-33.0); Mean Corpuscular Volume 93.8 fL (80.0-98.0); Mean Platelet Volume 10.6 fL (9.4-12.4); Monocytes Absolute Auto 0.7 X10*3/uL (0.1-1.2); Monocytes Percent Auto 4.5 % (2-11); Neutrophils Absolute Auto 13.4 x10*3/uL (2.0-8.3); Neutrophils Percent Auto 90.8 % (45-73); Platelet Count 267 X10*3/uL (160-400); Red Blood Count 4.66 X10*6/uL (4.60-5.80); Red Cell Distribution Width 12.4 % (11.0-16.0); SCAN SMEAR FLAG 1; White Blood Count 14.8 X10*3/uL (4.8-10.8)
[2024-08-23 09:18] LABS: Prothrombin Time 23.9 SEC (10.9-12.4)
[2024-08-23 09:30] LABS: Anion Gap 16 (12-20); Blood Urea Nitrogen 18 mg/dL (9-16); Calcium 8.5 mg/dL (8.4-10.2); Carbon Dioxide 23 mmol/L (22-29); Chloride 102 mmol/L (96-108); Creatinine Clr Calc Pharmacy 108.6; Estimated Glomerular Filt Rate > 60; Glucose Random 206 mg/dL (60-115); Potassium 4.3 mmol/L (3.3-5.1); Sodium 137 mmol/L (135-145)
[2024-08-23 09:31] LABS: SLIDE REVIEW VERIFIED
--- NOTE | 2024-08-23 09:38 | MHC.EDTECH ---
patient had an accident. patient request to stand to urinate he is a stand by assist. changed bed linen
[2024-08-23 09:40] LABS: Troponin-I High Sensitivity 19.6 ng/L (<3.5-35.0)
[2024-08-23 09:44] LABS: Appearance Urine Clear; Color Urine Yellow; Glucose Urine UA >=1000 mg/dL (Negative); Leukocyte Esterase Urine Negative (Negative); Nitrite Urine Negative (Negative); Specific Gravity - Urine >= 1.030 (1.005-1.025); UMIC TRIGGER UACC YES; Urine Blood Negative (Negative); Urine Ketones Negative (Negative); Urine Protein Negative (Neg-Trace)
[2024-08-23 10:06] LABS: Amphetamine Screen Urine Not Detected (Not Detect); Barbiturates, Urine Not Detected (Not Detect); Benzodiazepines Screen Urine Not Detected (Not Detect); Buprenorphine Scr Not Detected (Not Detect); Cannabinoid Screen Urine Not Detected (Not Detect); Cocaine Screen Urine POSITIVE (Not Detect); Fentanyl, urine Not Detected (Not Detect); Methadone Screen, Urine Not Detected (Not Detect); Opiate Screen Urine Not Detected (Not Detect); Oxycodone Screen Urine Not Detected (Not Detect); Phencyclidine Screen Urine Not Detected (Not Detect)
--- NOTE | 2024-08-23 10:47 | ED_ITS ---
HPI - Chest Pain General Chief Complaint: Chest Pain Stated Complaint: SOB,2 8BALLS OF CRACK/COCAINE LAST NOC PER EMS Time Seen by Provider: 08/23/24 10:47 History of Present Illness ED Provider: Helnee NIXON narrative: The patient is a 74-year-old male with a history of congestive heart failure who was hospitalized a few days ago after testing positive for influenza and COVID. He has been started on Tamiflu. He was discharged from the hospital yesterday. He lives alone in his own apartment. He says that the wintertime is a very sad time for him because he has experienced a lot of deaths over the years in the winter. He was feeling very depressed this morning. He did some cocaine. He thought he felt so depressed that he should return to the hospital so he called 911. Medically he feels reasonably well today. He does not have any significant chest pain or shortness of breath. No fever, sweats, chills. Although he is feeling very sad he is not suicidal or homicidal. He says he has not been able to get in touch with his usual therapist at [facility] Related Data Home Medications ?Medication ?Instructions ?Recorded ?Confirmed multivitamin 1 tab PO DAILY 10/22/20 08/23/24 acetaminophen 650 mg 1,300 mg PO BID PRN Pain 08/05/21 08/23/24 tablet,extended release omega-3 fatty acids 500 mg capsule 500 mg PO DAILY 08/05/21 08/23/24 gabapentin 100 mg capsule 100 mg PO BEDTIME 09/25/22 08/23/24 duloxetine 20 mg capsule,delayed 40 mg PO DAILY 10/16/22 08/23/24 release cholecalciferol (vitamin D3) 25 50 mcg PO DAILY 12/23/22 08/23/24 mcg (1,000 unit) tablet (Vitamin D3) gabapentin 300 mg capsule 300 mg PO DAILY 12/23/22 08/23/24 risperidone 1 mg tablet 1 mg PO BEDTIME 01/14/24 08/23/24 bupropion HCl 100 mg tablet 100 mg PO TID 08/21/24 08/23/24 dapagliflozin propanediol 5 mg 5 mg PO DAILY 08/21/24 08/23/24 tablet (Farxiga) digoxin 250 mcg (0.25 mg) tablet 250 mcg PO MOWEFR@0900 08/21/24 08/23/24 warfarin 4 mg tablet 4 mg PO DAILY 08/21/24 08/23/24 Previous Rx's ?Medication ?Instructions ?Recorded furosemide 20 mg tablet 20 mg PO BID #90 tabs 10/15/23 carvedilol 6.25 mg tablet 6.25 mg PO BID 90 days #180 tabs 10/21/23 tamsulosin 0.4 mg capsule (Flomax) 0.8 mg (2 x 0.4 mg) PO BEDTIME #90 05/01/24 caps tizanidine 4 mg tablet 4 mg PO BEDTIME #90 tabs 08/08/24 atorvastatin 10 mg tablet 10 mg PO BEDTIME #90 tabs 08/10/24 oseltamivir 30 mg capsule 30 mg PO BID #12 caps 08/22/24 oseltamivir 45 mg capsule 45 mg PO BID #12 caps 08/22/24 prednisone 20 mg tablet See Rx Instructions .Route 08/22/24 .COMPLEX #18 tabs Allergies Allergy/AdvReac Type Severity Reaction Status Date / Time iodine [IODINE] Allergy Intermediate HIVES, Verified 08/23/24 08:44 bloating latex [LATEX] Allergy Intermediate HIVES Verified 08/23/24 08:44 shellfish derived Allergy Intermediate ANAPHYLAXIS Verified 08/23/24 08:44 [SHELLFISH DERIVED] lisinopril Allergy Unknown Verified 08/23/24 08:44 Review of Systems 2 Review of Systems: Yes all other systems are reviewed and are negative [facility] Past Medical History Medical History Heart failure with reduced ejection fraction Chest pain, pleuritic Back pain Dyspnea NOEMI on CPAP COPD (chronic obstructive pulmonary disease) CAD (coronary artery disease) HLD (hyperlipidemia) HTN (hypertension) Diabetes Obstructive sleep apnea Morbid obesity Cardiomyopathy Persistent atrial fibrillation Current use of anticoagulant therapy Surgical History History of knee surgery History of ankle surgery Family History Family History Father HTN (hypertension) Diabetes mellitus Cardiac disease Bone cancer Substance use disorder Mother HTN (hypertension) Lung cancer Social History Social History Household Members: None Housing: Apartment Do you presently have visiting nurse or other home services: No Alcohol intake: never Comment: refusing alarms Patient Tobacco Use Status: Former Tobacco user Years Smoked: 30 yrs Smoked in Last 30 Days: No e-Cigarette/Vaping Use: Never Used Second Hand Smoke Exposure: No Use of substances other than those prescribed or required for medical reasons: Yes Substance Use Type: Crack/Cocaine Advance Directives: No Advance Directives Information Provided: Yes Do you have a plan to hurt others: No Plan service: No Current occupational status: retired and disabled Cognitive needs: No Hearing needs: No Vision needs: Yes Physical Exam 2 Vital Signs: Vital Signs: Last Vital Signs Temp 97.3 F 08/23/24 14:39 Pulse 101 H 08/23/24 14:39 Resp 20 08/23/24 14:39 BP 117/74 08/23/24 14:39 Pulse Ox 94 08/23/24 14:39 O2 Del Method Room Air 08/23/24 14:39 Oxygen Flow Rate 4 08/23/24 08:43 BMI result Body Mass Index 40.4 Const: Other: The patient is awake and alert with a normal mental status. He does not seem in any respiratory distress or pain or discomfort. He does not appear medically ill. He spoke at length about how many family members have during the winter months HEENT: Other: Face is symmetrical. Mucous membranes moist. Eyes: General: appearance normal, both eyes and all related structures Neck: Neck: Yes no JVD Resp: Effort & Inspection: normal respiratory effort Auscultation: clear to auscultation bilaterally Cardio: Rate: regular rate Rhythm: regular rhythm Heart sounds: S1 normal heart sound present and S2 normal heart sound present GI: Other: Abdomen is soft and nontender Skin: Other: Skin is dry and unremarkable Neuro: Other: The patient is awake and alert with a normal mental status. Cranial nerves are intact. He moves his extremities normally. He has a steady gait. Extrem: Other: No calf asymmetry. No pitting edema. Psych: Other: The patient spoke at length about how both of his parents and his had in the months of June in July and how he therefore always found this time of your very difficult. Medical Decision Making Medical Decision Making MDM Narrative: The patient is a 74-year-old male who was discharged from the hospital yesterday after being hospitalized for influenza. He returned this morning by ambulance from his apartment. Apparently he has been feeling sad last night and did bad about this and called 911. When I spoke to him he spoke primarily about how sad he has been. He did not seem acutely medically ill. I obtained a care team consult. The patient does not seem to be interested in psychiatric hospitalization and does not meet criteria for involuntary hospitalization. He is denying suicidality. The care team will try to help coordinate outpatient follow up. Otherwise the patient looks well enough for discharge. Lab Data 08/23/24 09:04 08/23/24 09:04 Labs: Lab Results 08/23/24 08/23/24 08/23/24 Range/Units 09:04 09:06 09:35 WBC 14.8 H (4.8-10.8) X10*3/uL RBC 4.66 (4.60-5.80) X10*6/uL Hgb 14.6 (14.0-18.0) g/dl Hct 43.7 (42.0-52.0) % MCV 93.8 (80.0-98.0) fL MCH 31.3 (27.0-33.0) pg MCHC 33.4 (31.0-36.0) g/dl RDW 12.4 (11.0-16.0) % Plt Count 267 D (160-400) X10*3/uL MPV 10.6 (9.4-12.4) fL Immature Gran % (Auto) 0.7 H (0.0-0.4) % Neut % (Auto) 90.8 H (45-73) % Lymph % (Auto) 3.8 L (20-40) % Hood % (Auto) 4.5 (2-11) % Eos % (Auto) 0.1 (0-4) % Baso % (Auto) 0.1 (0-2) % Lymph # (Auto) 0.6 L (1.2-4.9) X10*3/uL Hood # (Auto) 0.7 (0.1-1.2) X10*3/uL Eos # (Auto) 0.0 (0.0-0.4) X10*3/uL Baso # (Auto) 0.0 (0.0-0.2) X10*3/uL Abs Immat Gran (auto) 0.10 H (0.00-0.03) X10*3/uL Absolute Neuts (auto) 13.4 H (2.0-8.3) x10*3/uL Absolute Nucleated RBC 0.000 (0.0-0.012) X10*3/uL Nucleated RBC % (auto) 0.0 (0.0-0.2) /100WBC Smear Tech's Comments VERIFIED PT 23.9 H (10.9-12.4) SEC INR 2.0 H (0.9-1.1) Sodium 137 (135-145) mmol/L Potassium 4.3 (3.3-5.1) mmol/L Chloride 102 (96-108) mmol/L Carbon Dioxide 23 (22-29) mmol/L Anion Gap 16 (12-20) BUN 18 H (9-16) mg/dL Creatinine 0.95 (0.5-1.4) mg/dL Estim Creat Clear Calc 108.6 Estimated GFR > 60 Random Glucose 206 H (60-115) mg/dL Calcium 8.5 (8.4-10.2) mg/dL Troponin I High Sens 19.6 (<3.5-35.0) ng/L Urine Color Yellow Urine Appearance Clear Urine pH 5.0 (5.0-9.0) Ur Specific [place] >= 1.030 H (1.005-1.025) Urine Protein Negative (Neg-Trace) mg/dL Urine Glucose (UA) >=1000 H (Negative) mg/dL Urine Ketones Negative (Negative) mg/dL Urine Blood Negative (Negative) Urine Nitrite Negative (Negative) Ur Leukocyte Esterase Negative (Negative) Urine RBC 0-2 (0-2) /HPF Urine WBC 0-5 (0-5) /HPF Ur Squamous Epith Cells 0-2 (0-2) /HPF Urine Bacteria None Seen (None Seen) Hyaline Casts 0-2 (0-2) /LPF Urine Opiates Screen Not Detected (Not Detect) Ur Buprenorphine Scrn Not Detected (Not Detect) ng/mL Ur Oxycodone Screen Not Detected (Not Detect) ng/mL Urine Methadone Screen Not Detected (Not Detect) ng/mL Urine Fentanyl Screen Not Detected (Not Detect) Ur Barbiturates Screen Not Detected (Not Detect) Ur Phencyclidine Scrn Not Detected (Not Detect) Ur Amphetamines Screen Not Detected (Not Detect) U Benzodiazepines Scrn Not Detected (Not Detect) Urine Cocaine Screen POSITIVE H (Not Detect) U Marijuana (THC) Screen Not Detected (Not Detect) Discharge Plan Discharge Clinical Impression: Shortness of breath Patient Disposition: Home, Self-Care Additional Instructions: Please continue your regular medications. Please try to follow up with your regular counselors. Also follow up with your regular doctor. Return to the emergency room if you feel worse. Prescriptions: No Action omega-3 fatty acids 500 mg capsule 500 mg PO DAILY acetaminophen 650 mg tablet extended release 1,300 mg PO BID PRN (Reason: Pain) carvedilol 6.25 mg tablet 6.25 mg PO BID 90 Days Qty: 180 3RF Protocol: Hold for SBP/HR < HOLD for SBP < : 90 HOLD for HR < : 60 tamsulosin [Flomax] 0.4 mg capsule 0.8 mg PO BEDTIME Qty: 90 3RF tizanidine 4 mg tablet 4 mg PO BEDTIME Qty: 90 0RF atorvastatin 10 mg tablet 10 mg PO BEDTIME Qty: 90 3RF multivitamin Tablet 1 tab PO DAILY gabapentin 300 mg capsule 300 mg PO DAILY cholecalciferol (vitamin D3) [Vitamin D3] 25 mcg (1,000 unit) Tablet 50 mcg PO DAILY bupropion HCl 100 mg tablet 100 mg PO TID dapagliflozin propanediol [Farxiga] 5 mg tablet 5 mg PO DAILY warfarin 4 mg tablet 4 mg PO DAILY digoxin 250 mcg (0.25 mg) tablet 250 mcg PO MOWEFR@0900 Rx Instructions: 250 mcg orally MWF; oseltamivir 30 mg Capsule 30 mg PO BID Qty: 12 0RF oseltamivir 45 mg Capsule 45 mg PO BID Qty: 12 0RF prednisone 20 mg tablet See Rx Instructions .Route .COMPLEX Qty: 18 0RF Rx Instructions: 20 mg orally; 3 tabs daily for 3 days, 2 tabs daily for 3 days, 1 tab daily for 3 days gabapentin 100 mg capsule 100 mg PO BEDTIME duloxetine 20 mg capsule,delayed release(DR/EC) 40 mg PO DAILY furosemide 20 mg tablet 20 mg PO BID Qty: 90 5RF risperidone 1 mg tablet 1 mg PO BEDTIME Interventions: ED Discharge Assessment Last Done: 08/23/24 14:39 Discharge Date/Time: 08/23/24 14:59 Print Language: Grenadian
[2024-08-23 11:00] LABS: Bacteria Urine None Seen (None Seen); Hyaline Casts Urine 0-2 /LPF (0-2); RBC Urine 0-2 /HPF (0-2); Squamous Epithelial Cell Urine 0-2 /HPF (0-2); WBC Urine 0-5 /HPF (0-5)
[2024-08-23 11:43] VITALS: BP 117/74; PULSE 102; RESP 21; TEMP 36.3; O2SAT 92
[2024-08-23 14:39] VITALS: BP 117/74; PULSE 101; RESP 20; TEMP 36.3; O2SAT 94
== END 2024-08-23 14:59 | disposition home or self-care (01) ==
PROVIDERS: Emergency Provider Emergency Medicine; PCP Internal Medicine
DX: R06.02 Shortness of breath (principal); R07.9 Chest pain, unspecified; F32.A Depression, unspecified; F14.90 Cocaine use, unspecified, uncomplicated; I10 Essential (primary) hypertension; E11.9 Type 2 diabetes mellitus without complications; I48.19 Other persistent atrial fibrillation; Z79.01 Long term (current) use of anticoagulants; Z79.899 Other long term (current) drug therapy
CPT/HCPCS: 36415; 80048; 80307; 81001; 84484; 85025; 85610; 93005; 99285; S9485

== ENCOUNTER → 2024-08-23 09:09 | Outpatient (BNV) | payer MEDICARE, MEDICAID, SELFPAY | PROVIDERS: Emergency Provider Emergency Medicine; PCP Internal Medicine; Visit Provider Internal Medicine Cardiovascular Disease | DX: I48.91 Unspecified atrial fibrillation (principal) | CPT/HCPCS: 93010 ==

== ENCOUNTER 2024-09-06 10:39 | Outpatient (AMB) | payer MEDICARE, MEDICAID, SELFPAY ==
[2024-09-06 10:45] VITALS: BP 114/72; PULSE 97; RESP 18; O2SAT 97; BMI 40.2
--- NOTE | 2024-09-06 10:45 | MHC.PC.OV ---
Vital Signs 09/06/24 10:45 Height 6 ft 3 in Weight 321 lb 6 oz BMI 40.2 BP 114/72 Blood Pressure Location Lt brachial Position Sitting Respiration 18 Pulse 97 Pulse Source Pulse Oximeter Pulse Oximetry (%) 97 Oxygen Delivery Method Room Air Intake Visit Reasons: F/U med review Allergies iodine [IODINE] Allergy (Intermediate, Verified 09/06/24 10:45) HIVES, bloating latex [LATEX] Allergy (Intermediate, Verified 09/06/24 10:45) HIVES shellfish derived [SHELLFISH DERIVED] Allergy (Intermediate, Verified 09/06/24 10:45) ANAPHYLAXIS lisinopril Allergy (Verified 09/06/24 10:45) Unknown Medication List - Last Reconciled 09/06/24 by Jaylon Carvajal MD acetaminophen ER 1,300 mg PO BID PRN atorvastatin 10 mg PO BEDTIME bupropion HCl 100 mg PO TID carvedilol 6.25 mg See Protocol PO BID 90 days cholecalciferol (vitamin D3) (Vitamin D3) 50 mcg PO DAILY dapagliflozin propanediol (Farxiga) 5 mg PO DAILY digoxin 250 mcg PO MOWEFR@0900 duloxetine 40 mg PO DAILY furosemide 20 mg PO BID gabapentin 300 mg PO DAILY gabapentin 100 mg PO BEDTIME multivitamin 1 tab PO DAILY omega-3 fatty acids 500 mg PO DAILY oseltamivir 30 mg PO BID oseltamivir 45 mg PO BID risperidone 1 mg PO BEDTIME tamsulosin (Flomax) 0.8 mg (2 x 0.4 mg) PO BEDTIME tizanidine 4 mg PO BEDTIME warfarin 4 mg PO DAILY Tobacco use date assessed: 09/06/24 Fall risk assessment: No Falls in past year Last assessed Fall Risk: 09/06/24 Dental Screening Dental Screen Date: 09/06/24 Did you have a dental visit in the last 12 months?: Yes Did you have a dental problem in the last 6 months where you did not have access to dental care?: No Was dental information given to patient?: Patient has dentist HPI F/U med review HPI Details Patient is 74-year-old gentleman who was seen in [facility] Emergency room 2nd of this month, he was admitted and was discharged on 4th of this month And have a past medical history significant for chronic atrial fibrillation he is on warfarin, hypertension, COPD, coronary artery disease, anxiety, depression, sleep apnea on CPAP, GERD, diabetes diet-controlled Patient presented to emergency room with a chief complaint of shortness a breath of 2-3 days' duration In emergency room he was tested positive for flu and COVID-19 Chest x-ray shows no infiltrate only cardiomegaly and possible fluid overload and congestion Patient was admitted for treatment and was given Tamiflu, steroids and intravenous antibiotics and was monitored closely He recovered quickly and was discharged to his home . - Significant fatigue and dizziness are present post-discharge, both of which are consistent with the recovery phase from the viral illnesses. It has been two weeks since the last hospital discharge. - Blood work conducted before discharge included normal electrolytes and kidney function tests; however, it is unclear if an A1c test was performed. - Currently taking multiple medications for various chronic conditions, including depression, diabetes, and coronary artery disease. Tamsulosin is noted for benign prostatic hyperplasia. Medications - Tamiflu for influenza - Paxlovid for COVID-19 - Duloxetine for depression - Bupropion for depression - Tamsulosin for Benign Prostatic Hyperplasia - Carvedilol for coronary artery disease - Farxiga for coronary artery disease - Digoxin for coronary artery disease - Furosemide for coronary artery disease - Risperidone prescribed by a psychiatrist - Tizanidine as needed for muscle relaxation Problem List - Influenza - COVID-19 - Depression - Diabetes Mellitus (as indicated by the need to check A1c) - Benign Prostatic Hyperplasia (taking Tamsulosin) - Coronary Artery Disease/ A fib (on Carvedilol, Farxiga, Digoxin, Furosemide) Patient Instructions - Avoid going out due to icy conditions; stay indoors as much as possible given current weakness. - Schedule a follow-up appointment in three months, bring all current medication bottles. - Consider having a family member or caregiver assist with medication management and provide clarification on current medication use. - Monitor any worsening symptoms or any new symptoms and seek care if necessary. Review of Systems General: No fever no chills ear nose throat: No sore throat no hearing difficulty no ear pain cardiovascular: No syncope, no chest pain, no palpitations gastrointestinal: No nausea vomiting or diarrhea genitourinary: No dysuria skin: No new complaints Physical Exam general: No acute distress HEENT: No acute findings neck: Supple respiratory system: Lungs are clear, able to talk in full sentences, no audible wheeze, no stridor cardiovascular: S1-S2 irreg irreg gastrointestinal: No pain extremities: No new findings DREDGE OR BARGE SHORE HAND: Alert awake oriented x3 motor sensory intact skin: Normal turgor TCM TCM Information Date of Discharge 08/22/24 Discharged From [facility] Interactive Contact Date (Reference documentation from this date) 08/23/24 HPI Comments History of Present Illness Details Date of admission/discharge: 08/20/2024 to 08/22/2024 Facility: [facility] Discharge 2/current location: Home Diagnosis/procedure: Chest x-rays EKG, reviewed New/DC medications: Tamiflu and Paxlovid Changed medication/dozing: None Pending labs/tests: None Call to patient: Date/time 08/23/2024 patient was contacted by a nurse Outcome: Patient was reached by the nurse Today's visit is in person How are you feeling? Much improved Any pain or discomfort? No , he is back to baseline Do you have any questions about your condition or discharge instructions? No Were you able to get her medications filled? Yes Do you have any questions about your medications? No Were you able to schedule your follow-up appointments? Yes If home health was ordered, have they contacted you? none ordered Any outpatient services, if so, are you scheduled? None ordered Are there any additional resources like transportation you might need during your recovery? No Educational needs/resources: No need What support system do you have? Have certified personal trainer [facility] Medical History Heart failure with reduced ejection fraction Chest pain, pleuritic Back pain Dyspnea NOEMI on CPAP COPD (chronic obstructive pulmonary disease) CAD (coronary artery disease) HLD (hyperlipidemia) HTN (hypertension) Diabetes Obstructive sleep apnea Morbid obesity Cardiomyopathy Persistent atrial fibrillation Current use of anticoagulant therapy Surgical History History of knee surgery History of ankle surgery Family History Father HTN (hypertension) Diabetes mellitus Cardiac disease Bone cancer Substance use disorder Mother HTN (hypertension) Lung cancer Social History Household Members: None Housing: Apartment Do you presently have visiting nurse or other home services: No Alcohol intake: never Comment: refusing alarms Patient Tobacco Use Status: Former Tobacco user Years Smoked: 30 yrs e-Cigarette/Vaping Use: Never Used Second Hand Smoke Exposure: No Substance Use Type: Crack/Cocaine service: No Current occupational status: retired and disabled Cognitive needs: No Hearing needs: No Vision needs: Yes Questionnaire Thrive Questionnaire Date Thrive assessed: 08/21/24 AUDIT C Alcohol Use Questionnaire (AUDIT-C) 1. How often do you have a drink containing alcohol?: Never 3. How often do you have six or more drinks on one occasion?: Never Total Score: 0 Score Reviewed/Action Taken: Yes VIRGILIO-7 AMB Questionnaire VIRGILIO-7 Date VIRGILIO - 7 assessed: 01/05/24 Source: Developed by Drs. Momo Barboza, Sue De Leon, Cameron De Jesus and colleagues, with an educational nancy from [employer]. Physical exam (Primary Care) Vital Signs: Last Vital Signs Pulse 97 09/06/24 10:45 Resp 18 09/06/24 10:45 BP 114/72 09/06/24 10:45 Pulse Ox 97 09/06/24 10:45 Oxygen Delivery Method Room Air 09/06/24 10:45 BMI result Body Mass Index 40.2 Tobacco/Smoking Status: Tobacco use Status Tobacco use date assessed 09/06/24 09/06/24 10:48 Patient Tobacco Use Status Former Tobacco user 09/06/24 10:48 e-Cigarette/Vaping Use Never Used 09/06/24 10:48 Thrive Assessment: Date of Thrive Assessment Date Thrive assessed 08/21/24 09/06/24 10:48 Coding Level of Care Code TCM High MDM <= 14 days Diagnoses Hospital discharge follow-up Z09 COVID-19 U07.1 Influenza A J10.1 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 transplanted heart: chilkoot heart Current use of anticoagulant therapy Z79.01 Recurrent major depressive disorder, in partial remission F33.41 Active/Remission status: in partial remission Morbid obesity E66.01 Assessment & Plan Assessment & Plan (1) Hospital discharge follow-up: Code(s): Z09 - Encounter for follow-up examination after completed treatment for conditions other than malignant neoplasm Category: Medical (2) COVID-19: Code(s): U07.1 - COVID-19 Category: Medical (3) Influenza A: Code(s): J10.1 - Influenza due to other identified influenza virus with other respiratory manifestations Category: Medical (4) Fatigue: Code(s): R53.83 - Other fatigue Category: Medical Qualifiers: Fatigue type: postviral fatigue syndrome Qualified Code(s): G93.31 - Postviral fatigue syndrome (5) Diabetes 1.5, managed as type 2: Code(s): E13.9 - Other specified diabetes mellitus without complications Category: Medical (6) Cardiomyopathy: Code(s): I42.9 - Cardiomyopathy, unspecified Category: Medical Qualifiers: Cardiomyopathy type: unspecified Qualified Code(s): I42.9 - Cardiomyopathy, unspecified (7) CAD (coronary artery disease): Code(s): I25.10 - Atherosclerotic heart disease of chilkoot coronary artery without angina pectoris Category: Medical Qualifiers: Associated angina: without angina Coronary Disease-Associated Artery/Lesion type: chilkoot artery [place] vs. transplanted heart: chilkoot heart Qualified Code(s): I25.10 - Atherosclerotic heart disease of chilkoot coronary artery without angina pectoris (8) Current use of anticoagulant therapy: Code(s): Z79.01 - halfway (current) use of anticoagulants Category: Medical (9) Depression, major, recurrent: Code(s): F33.9 - Major depressive disorder, recurrent, unspecified Category: Medical Qualifiers: Active/Remission status: in partial remission Qualified Code(s): F33.41 - Major depressive disorder, recurrent, in partial remission (10) Morbid obesity: Code(s): E66.01 - Morbid (severe) obesity due to excess calories Category: Medical Plan Patient is 74-year-old gentleman who was seen in [facility] Emergency room 2nd of this month, he was admitted and was discharged on 4th of this month And have a past medical history significant for chronic atrial fibrillation he is on warfarin, hypertension, COPD, coronary artery disease, anxiety, depression, sleep apnea on CPAP, GERD, diabetes diet-controlled Patient presented to emergency room with a chief complaint of shortness a breath of 2-3 days' duration In emergency room he was tested positive for flu and COVID-19 Chest x-ray shows no infiltrate only cardiomegaly and possible fluid overload and congestion Patient was admitted for treatment and was given Tamiflu, steroids and intravenous antibiotics and was monitored closely He recovered quickly and was discharged to his home . - Significant fatigue and dizziness are present post-discharge, both of which are consistent with the recovery phase from the viral illnesses. It has been two weeks since the last hospital discharge. - Blood work conducted before discharge included normal electrolytes and kidney function tests; however, it is unclear if an A1c test was performed. - Currently taking multiple medications for various chronic conditions, including depression, diabetes, and coronary artery disease. Tamsulosin is noted for benign prostatic hyperplasia. Medications - Tamiflu for influenza - Paxlovid for COVID-19 - Duloxetine for depression - Bupropion for depression - Tamsulosin for Benign Prostatic Hyperplasia - Carvedilol for coronary artery disease - Farxiga for coronary artery disease - Digoxin for coronary artery disease - Furosemide for coronary artery disease - Risperidone prescribed by a psychiatrist - Tizanidine as needed for muscle relaxation Problem List - Influenza - COVID-19 - Depression - Diabetes Mellitus (as indicated by the need to check A1c) - Benign Prostatic Hyperplasia (taking Tamsulosin) - Coronary Artery Disease/ A fib (on Carvedilol, Farxiga, Digoxin, Furosemide) Patient Instructions - Avoid going out due to icy conditions; stay indoors as much as possible given current weakness. - Schedule a follow-up appointment in three months, bring all current medication bottles. - Consider having a family member or caregiver assist with medication management and provide clarification on current medication use. - Monitor any worsening symptoms or any new symptoms and seek care if necessary.
--- OUTSIDE RECORDS SUMMARY | 2024-09-06 11:14 | XMS_ITS ---
Author Name Montero BRITTNEYHomer Address [address] [place] [address] Phone [phone] [facility] Care Team Providers Care Blade Worker Name Role Phone Homer Montero Unavailable [phone] [facility] Unavailable Unavailable Unavailable Unavailable Reason for Referral Not [...] List Problem Status Onset Date Resolved Date NOEMI (obstructive sleep apnea) Active 2022-07-27 N/A HLD [...] Active 2022-07-27 N/A Other problems related to [facility] facilities and other health care Active 2023-09-28 N/A Encounters Encounters Type Facility Date of Service Diagnosis/Co mplaint New patient,40-59min; chronic exacerbation, 2 stable chronic or 1 acute illness add add modifier 95 for video (do not use for phone, instead use 70077-61) [facility] Unspecified atrial fibrillationOther thrombophiliaChronic obstructive pulmonary [...] (do not use for phone, instead use 18668-48) [facility] New patient,40-59min; chronic exacerbation, 2 stable chronic or 1 acute illness add add modifier 95 for video (do not use for phone, instead use 43334-45) [facility] New patient,40-59min; chronic exacerbation, 2 stable chronic or 1 acute illness add add modifier 95 for video (do not use for phone, instead use 46295-07) [facility] New patient,40-59min; chronic exacerbation, 2 stable chronic or 1 acute illness add add modifier 95 for video (do not use for phone, instead use 32054-71) [facility] New patient,40-59min; chronic exacerbation, 2 stable chronic or 1 acute illness add add modifier 95 for video (do not use for phone, instead use 33408-48) [facility] [place]20[place] New patient,40-59min; chronic exacerbation, 2 stable chronic or 1 acute illness add add modifier 95 for video (do not use for phone, instead use 57203-15) [facility] ([place] 07[place] New patient,40-59min; chronic exacerbation, 2 stable chronic or 1 acute illness add add modifier 95 for video (do not use for phone, instead use 04588-16) [facility] New patient,40-59min; chronic exacerbation, 2 stable chronic or 1 acute illness add add modifier 95 for video (do not use for phone, instead use 88533-84) [facility] 07[place]/2022 No Data Available [facility]2022 History of fallingMyalgia, o ther site No Data Available [facility] 08[place]18/2022 Unspecified atrial fibrillationOther thrombophiliaChronic obstructive pulmonary disease, unspecifiedUnspecified disorder of circulatory systemChronic pulmonary embolismHeart failure, unspecifiedCardiomyopathy, unspecifiedMajor depressive disorder, recurrent, in full remissionHyperlipidemia, unspecifiedObstructive sleep apnea (adult) (pediatric)History of fallingMyalgia, other siteMorbid (severe) obesity due to excess caloriesInsomnia, unspecifiedSedative, hypnotic or anxiolytic dependence, uncomplicatedPersonal history of nicotine dependence No Data Available [facility] [place] 10[place]14/2022 Other thrombophiliaUnspecifi ed atrial fibrillationChronic obstructive pulmonary disease, unspecifiedUnspecified disorder of circulatory systemChronic pulmonary embolismHeart failure, unspecifiedCardiomyopathy, unspecifiedMajor depressive disorder, recurrent, in full remissionCoagulation defect, unspecifiedHyperlipidemia, unspecifiedObstructive sleep apnea (adult) (pediatric)History of fallingMyalgia, other siteMorbid (severe) obesity due to excess caloriesBody mass index (BMI) 45.0-49.9, adultInsomnia, unspecifiedSedative, hypnotic or anxiolytic dependence, uncomplicated No Data Available [facility] [place]14[place]2022 No Data Available [facility] [place]20[place] No Data Available [facility] [place]/14[place]2022 No Data Available [facility] [place] No Data Available [facility] [place] 09[place]11/2023 Dizziness and giddinessBody mass index (BMI) 40.0-44.9, adult No Data Available [facility] [place] 09[place]11/2023 No Data Available [facility] [place]11[place]2023 No Data Available [facility] [place]2023 No Data Available [facility] [place] No Data Available [facility] [place] 01/25/2024 Other thrombophiliaUnspecifi ed atrial fibrillationOther problems related to medical facilities and other health careChronic obstructive pulmonary disease, unspecifiedChronic pulmonary embolismUnspecified disorder of circulatory systemCardiomyopathy, unspecifiedHeart failure, unspecifiedMajor depressive disorder, recurrent, in full remissionHyperlipidemia, unspecifiedObstructive sleep apnea (adult) (pediatric)History of fallingMyalgia, other siteMorbid (severe) obesity due to excess caloriesBody mass index (BMI) 40.0-44.9, adultInsomnia, unspecified No Data Available [facility] [place] 01[place]25[place]24 No Data Available [facility] [place]/25[place]2024 No Data Available [facility] [place]/25/2024 No Data Available [facility] [place] No Data Available [facility]24 No Data Available [facility]2024 No Data Available [facility]2024 No Data Available [facility] 01/25/2024 Vital Signs Date of Collection [...] tive Time Current Smoking Status Former smoker 2024-08-19 11 Sex Male History of Procedures Procedures Service Procedure code Service date Servicing provider Phone# New patient,40-59min; chronic exacerbation, 2 stable chronic or 1 acute illness add add modifier 95 for video (do not use for phone, instead use 27522-83) [id number] 2022-07-27 No Data Available No Data Availa [...] Available No Data Available No Data Available [id number] 2023-09-11 No Data Available No Data Available [...] documented ([id number])Continue to see PCP. 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 [facility] [...] PCP for ongoing monitoring and management Sees memorial counselor Dr. Loomis01/25/24: Denies any dyspnea with exertion.Other [...] states he can [facility] get [facility] from [facility] 01/25/24: PHQ-4=5 (Mild), continues to follow with [...] diet regimen; His goal is to weigh [id number] was sent hydroxyzine recently and worked better than his lorazepamstates his pain is what impedes his sleepingdiscussed use of OTC melatonin 10mg states he will try advised to discuss with PCP for medications for intermediate use seen by psychiatry has appt next [...] discussedDo you have a Durable Power of Food Service Coordinator for Healthcare, or Healthcare Proxy Or Guardianship? Yes, preferred proxy but not named POAIf so, Who? Sister CarolineDo you have a written Advance Directive? Has Advance DirectiveOther details of discussion: Patient expressed her desire to be DNI code status, he is planning to discuss with PCPToday's plan: Advised patient to discuss wishes with [id number] : AD or surrogate was documented in the medical record.
== END 2024-09-06 11:23 | disposition home or self-care (01) ==
PROVIDERS: PCP Internal Medicine; Visit Provider Internal Medicine
DX: E13.9 Other specified diabetes mellitus without complications (principal); I42.9 Cardiomyopathy, unspecified; E66.01 Morbid (severe) obesity due to excess calories; Z68.41 Body mass index [BMI] 40.0-44.9, adult; F33.41 Major depressive disorder, recurrent, in partial remission; Z09 Encounter for follow-up examination after completed treatment for conditions other than malignant neoplasm; U07.1 COVID-19; J10.1 Influenza due to other identified influenza virus with other respiratory manifestations; G93.31 Postviral fatigue syndrome; I25.10 Atherosclerotic heart disease of native coronary artery without angina pectoris; Z79.01 Long term (current) use of anticoagulants

== ENCOUNTER → 2024-09-06 10:39 | Outpatient (BNVA) | payer MEDICARE, MEDICAID, SELFPAY | PROVIDERS: PCP Internal Medicine; Visit Provider Internal Medicine | DX: Z09 Encounter for follow-up examination after completed treatment for conditions other than malignant neoplasm (principal); U07.1 COVID-19; J10.1 Influenza due to other identified influenza virus with other respiratory manifestations; G93.31 Postviral fatigue syndrome; E13.9 Other specified diabetes mellitus without complications; I42.9 Cardiomyopathy, unspecified; I25.10 Atherosclerotic heart disease of native coronary artery without angina pectoris; F33.41 Major depressive disorder, recurrent, in partial remission; Z79.01 Long term (current) use of anticoagulants | CPT/HCPCS: 99495 ==

== ENCOUNTER 2024-09-11 13:01 | Outpatient (AMB) | payer MEDICARE, MEDICAID, SELFPAY ==
[2024-09-11 13:11] LABS: Prothrombin Time Whole Bld POC 32.1 sec (11.1-13.5); ~PT, ~INR - Anti Coag Clinic 2.7 (0.9-1.1)
--- NOTE | 2024-09-11 13:17 | MHC.OFFVISCO ---
Intake Intake Visit Reasons: Anticoagulation Allergies iodine [IODINE] Allergy (Intermediate, Verified 09/11/24 13:07) HIVES, bloating latex [LATEX] Allergy (Intermediate, Verified 09/11/24 13:07) HIVES shellfish derived [SHELLFISH DERIVED] Allergy (Intermediate, Verified 09/11/24 13:07) ANAPHYLAXIS lisinopril Allergy (Verified 09/11/24 13:07) Unknown Medication List - Last Reconciled 09/11/24 by Brittany German, JESUS acetaminophen ER 1,300 mg PO BID PRN atorvastatin 10 mg PO BEDTIME bupropion HCl 100 mg PO TID carvedilol 6.25 mg See Protocol PO BID 90 days cholecalciferol (vitamin D3) (Vitamin D3) 50 mcg PO DAILY dapagliflozin propanediol (Farxiga) 5 mg PO DAILY digoxin 250 mcg PO MOWEFR@0900 duloxetine 40 mg PO DAILY furosemide 20 mg PO BID gabapentin 300 mg PO DAILY gabapentin 100 mg PO BEDTIME multivitamin 1 tab PO DAILY omega-3 fatty acids 500 mg PO DAILY oseltamivir 30 mg PO BID oseltamivir 45 mg PO BID risperidone 1 mg PO BEDTIME tamsulosin (Flomax) 0.8 mg (2 x 0.4 mg) PO BEDTIME tizanidine 4 mg PO BEDTIME warfarin 4 mg PO DAILY Nursing Note INR: 2.7 in therapeutic range of 2-3 Medications and supplements reviewed No changes in health, diet, medications, or supplements, Denies any signs and symptoms of bleeding or bruising or clotting. 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
--- OUTSIDE RECORDS SUMMARY | 2024-09-11 14:47 | XMS_ITS ---
Author Name Montero BRITTNEYHomer Address [address] [place] [address] Phone [phone] [facility] Care Team Providers Care Router Operator Radial Name Role Phone Homer Montero Unavailable [phone] [facility] Unavailable Unavailable Unavailable Unavailable Reason for Referral [...] Active 2022-07-27 N/A Other problems related to [facility] facilities and other health care Active 2023-09-28 N/A Encounters Encounters Type Facility Date of Service Diagnosis/Co mplaint New patient,40-59min; chronic exacerbation, 2 stable chronic or 1 acute illness add add modifier 95 for video (do not use for phone, instead use 46205-65) [facility] ([place]2022 Unspecified atrial fibrillationOther thrombophiliaChronic obstructive pulmonary [...] (do not use for phone, instead use 63181-28) [facility] New patient,40-59min; chronic exacerbation, 2 stable chronic or 1 acute illness add add modifier 95 for video (do not use for phone, instead use 75688-17) [facility]20[place] New patient,40-59min; chronic exacerbation, 2 stable chronic or 1 acute illness add add modifier 95 for video (do not use for phone, instead use 82170-12) [facility] 07[place]20[place] New patient,40-59min; chronic exacerbation, 2 stable chronic or 1 acute illness add add modifier 95 for video (do not use for phone, instead use 23017-70) [facility] [place] 07[place]20[place] New patient,40-59min; chronic exacerbation, 2 stable chronic or 1 acute illness add add modifier 95 for video (do not use for phone, instead use 79065-10) [facility] [place] 07[place]2022 New patient,40-59min; chronic exacerbation, 2 stable chronic or 1 acute illness add add modifier 95 for video (do not use for phone, instead use 62424-72) [facility] New patient,40-59min; chronic exacerbation, 2 stable chronic or 1 acute illness add add modifier 95 for video (do not use for phone, instead use 69935-94) [facility] New patient,40-59min; chronic exacerbation, 2 stable chronic or 1 acute illness add add modifier 95 for video (do not use for phone, instead use 49270-17) [facility] [place] 07/[place]/2022 No Data Available [facility] [place]20[place] History of fallingMyalgia, o ther site No Data Available [facility] [place] 08/18/2022 Unspecified atrial fibrillationOther thrombophiliaChronic obstructive pulmonary disease, unspecifiedUnspecified disorder of circulatory systemChronic pulmonary embolismHeart failure, unspecifiedCardiomyopathy, unspecifiedMajor depressive disorder, recurrent, in full remissionHyperlipidemia, unspecifiedObstructive sleep apnea (adult) (pediatric)History of fallingMyalgia, other siteMorbid (severe) obesity due to excess caloriesInsomnia, unspecifiedSedative, hypnotic or anxiolytic dependence, uncomplicatedPersonal history of nicotine dependence No Data Available [facility] [place] 10/14/2022 Other thrombophiliaUnspecifi ed atrial fibrillationChronic obstructive pulmonary disease, unspecifiedUnspecified disorder of circulatory systemChronic pulmonary embolismHeart failure, unspecifiedCardiomyopathy, unspecifiedMajor depressive disorder, recurrent, in full remissionCoagulation defect, unspecifiedHyperlipidemia, unspecifiedObstructive sleep apnea (adult) (pediatric)History of fallingMyalgia, other siteMorbid (severe) obesity due to excess caloriesBody mass index (BMI) 45.0-49.9, adultInsomnia, unspecifiedSedative, hypnotic or anxiolytic dependence, uncomplicated No Data Available [facility] [place]14[place]2022 No Data Available [facility] [place]/14[place]20[place] No Data Available [facility] [place] 10/14/2022 [facility] Data Available [facility] [place]20[facility] No Data Available [facility] [place] 09/11/2023 Dizziness and giddinessBody mass index (BMI) 40.0-44.9, adult No Data Available [facility] [place] 09/11/2023 No Data Available [facility] [place] 09/11/2023 No Data Available [facility] [place] 09/11/2023 No Data Available [facility] [place]2023 No Data Available [facility] [place] 01/25/2024 Other thrombophiliaUnspecifi ed atrial fibrillationOther problems related to medical facilities and other health careChronic obstructive pulmonary disease, unspecifiedChronic pulmonary embolismUnspecified disorder of circulatory systemCardiomyopathy, unspecifiedHeart failure, unspecifiedMajor depressive disorder, recurrent, in full remissionHyperlipidemia, unspecifiedObstructive sleep apnea (adult) (pediatric)History of fallingMyalgia, other siteMorbid (severe) obesity due to excess caloriesBody mass index (BMI) 40.0-44.9, adultInsomnia, unspecified No Data Available [facility] [place] 01/25/2024 No Data Available [facility] [place] 01/25/2024 No Data Available [facility] [place] 01/25/2024 No Data Available [facility] [place]/2024 No Data Available [facility] 01/25/2024 No Data Available [facility] 01/25/2024 No Data Available [facility] [place] 01/25/2024 No Data Available [facility] [place] 01/25/2024 Vital Signs Date of Collection [...] tive Time Current Smoking Status Former smoker 2024-08-20 6 Sex Male History of Procedures Procedures Service Procedure code Service date Servicing provider Phone# New patient,40-59min; chronic exacerbation, 2 stable chronic or 1 acute illness add add modifier 95 for video (do not use for phone, instead use 88387-09) [id number] 2022-07-27 No Data Available No Data Availa [...] Available No Data Available No Data Available [id number] 2023-09-11 No Data Available No Data Available [...] states he can likely get someone from [facility] warfarin- follows closely with cardio and [...] to 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 [facility] [...] PCP for ongoing monitoring and management Sees heel slugger Dr. Loomis01/25/24: Denies any dyspnea with exertion.Other [...] states he can likely get someone [facility] 01/25/24: PHQ-4=5 (Mild), continues to follow [...] diet regimen; His goal is to weigh [id number] was sent hydroxyzine recently and worked better than his lorazepamstates his pain is what impedes his sleepingdiscussed use of OTC melatonin 10mg states he will try advised to discuss with PCP for medications for correction use seen by psychiatry has appt next [...] discussedDo you have a Durable Power of Oracle Fusion Middleware Architect for Healthcare, or Healthcare Proxy Or Guardianship? Yes, preferred proxy but not named POAIf so, Who? Sister CarolineDo you have a written Advance Directive? Has Advance DirectiveOther details of discussion: Patient expressed her desire to be DNI code status, he is planning to discuss with PCPToday's plan: Advised patient to discuss wishes with [id number] : AD or surrogate was documented in the medical record.
== END 2024-09-11 13:18 | disposition home or self-care (01) ==
LOC: HO.ACS 13:01
PROVIDERS: PCP Internal Medicine; Visit Provider Internal Medicine
DX: Z79.01 Long term (current) use of anticoagulants (principal)

== ENCOUNTER → 2024-09-11 13:01 | Outpatient (BNVA) | payer MEDICARE, MEDICAID, SELFPAY | PROVIDERS: PCP Internal Medicine; Visit Provider Internal Medicine | DX: I26.99 Other pulmonary embolism without acute cor pulmonale (principal); Z79.01 Long term (current) use of anticoagulants; Z51.81 Encounter for therapeutic drug level monitoring | CPT/HCPCS: 85610; 99211 ==

== ENCOUNTER 2024-09-25 13:03 | Outpatient (AMB) | payer MEDICARE, MEDICAID, SELFPAY ==
[2024-09-25 13:11] LABS: Prothrombin Time Whole Bld POC 64.2 sec (11.1-13.5); ~PT, ~INR - Anti Coag Clinic 5.4 (0.9-1.1)
--- NOTE | 2024-09-25 13:34 | MHC.OFFVISCO ---
Intake Intake Visit Reasons: Anticoagulation Allergies iodine [IODINE] Allergy (Intermediate, Verified 09/25/24 13:05) HIVES, bloating latex [LATEX] Allergy (Intermediate, Verified 09/25/24 13:05) HIVES shellfish derived [SHELLFISH DERIVED] Allergy (Intermediate, Verified 09/25/24 13:05) ANAPHYLAXIS lisinopril Allergy (Verified 09/25/24 13:05) Unknown Medication List - Last Reconciled 09/25/24 by Priscila Gilliland RN acetaminophen ER 1,300 mg PO BID PRN atorvastatin 10 mg PO BEDTIME bupropion HCl 100 mg PO TID carvedilol 6.25 mg See Protocol PO BID 90 days cetirizine 10 mg PO DAILY cholecalciferol (vitamin D3) (Vitamin D3) 50 mcg PO DAILY dapagliflozin propanediol (Farxiga) 5 mg PO DAILY digoxin 250 mcg PO MOWEFR@0900 duloxetine 40 mg PO DAILY furosemide 20 mg PO BID gabapentin 300 mg PO DAILY gabapentin 100 mg PO BEDTIME multivitamin 1 tab PO DAILY omega-3 fatty acids 500 mg PO DAILY risperidone 1 mg PO BEDTIME tamsulosin (Flomax) 0.8 mg (2 x 0.4 mg) PO BEDTIME tizanidine 4 mg PO BEDTIME warfarin 4 mg See Protocol PO DAILY Nursing Note ambulates to [facility] with cane with friend Maru - he no longer qualifies for VNA services and because she cares about still brings him for appt = INR 5.4 POC out of therapeutic range sent to lab for verification 4.7 lab INR along with CBC due to palor - CBC also sent because H+H can run low s/p covid - INR may be high from not eating x 3 days Medications and supplements reviewed Patient status: ambulates with cane, states lost 74 lbs- states he has not eaten in 3 days -does not feel like eating but is drinking diet soda, discussed that diet soda is not health and does not have nutritional value, enc water or juice and at least a protein and vegetable bid - that when on warfarin it is necessary to eat, and explained nutrients are important for health- he states he is trying to get below 300 lbs Medications or supplements: no changes Diet: fair - he states he is able to eat canned vegetables like peas and green beans and beef and chicken Denies any signs and symptoms of bleeding or clotting or unusual bruising Bleeding, bruising, clotting discussed Nutritional guidance given: vegetables and protein and water Dose: already took today's dose this am because he thought he missed a dose last night, he wlll not take tonights dose because he took in am ( may have over dosed and he will not take tomorrow's dose and recheck INR wed plus eat greens and protein F/U INR Date : 2 days because that is when his friend is able to bring him ?? Patient verbalizing understanding of instructions given with read back- he and his friend are aware this INR is critical and he is at risk for bleeding and will go to the ER for Msg and Call to PCP regarding pt status and plan of care mild low H+H , lab INR pending, This msg is being sent - and called to PCP spoke with Nurse Arana to convey msg to PCP Anti-Coag Initial Assessment Social Hx Patient Tobacco Use Status: Former Tobacco user alcohol intake: never Coding Level of Care Code Est Patient Level 1 Diagnoses Current use of anticoagulant therapy Z79.01 Results AMB INR Fingerstick AMB INR Fingerstick 5.4 Last Edit by Priscila Gilliland RN on 09/25/24 13:13 call to PCP Priscila Gilliland 09/25/24 13:13 send for lab verification Assessment & Plan Assessment & Plan (1) Current use of anticoagulant therapy: Code(s): Z79.01 - long term (current) use of anticoagulants Category: Medical Orders: Orders Complete Blood Count Auto Diff Today Z79.01 - assisted (current) use of anticoagulants Prothrombin Time INR Today Z79.01 - long term (current) use of anticoagulants
--- OUTSIDE RECORDS SUMMARY | 2024-09-25 14:37 | XMS_ITS ---
Author Organization [facility] Care Team Providers Care Technician Trainee Name Role Phone Eryn Villarreal Unavailable Unavailable Joo Oswald Unavailable Unavailable Brittany Ly Unavailable Unavailable Magalie Brand Unavailable Unavailable Allergies and adverse reactions Code CodeSystem Substance Reaction Severity StartDate Concern Status Shell Fish Unknown 09/02/2018 active Latex Unknown 09/02/2018 active 5933 RXNORM Iodine Unknown 09/02/2018 active Care Team Name Role Address Phone Organization Dates Eryn Villarreal Attending Physician [address] [place] [address], [phone], [place]Office[place] : [facility] [place] 09/02/2018 - 09/13/2018 Joo Oswald Attending Physician [address] [place] [address], [phone], [place]Office[place] : [facility] [place] 09/02/2018 - 09/13/2018 Brittany Ly Attending Physician [address] [place] [address], [phone], [place] (Office): : [facility] [place] 09/02/2018 - 09/13/2018 Magalie Brand Attending Physician [address] [place] [address], [phone], [place]Office[place] : [facility] 09/02/2018 - 09/13/2018 Immunizations Immunization Status Vaccine Details Vaccine Code CodeSystem Date Notes PCV (Prevnar) 13 completed pneumococcal conjugate vaccine, 13 valent lotNumber: [id number] expiry: 07/19/2019 Given 0.5 ml Right Deltoid intramuscularly 133 CVX created date: 09/07/2018 consent date: 09/06/2018 administere d date: 09/07/2018 Influenza (high dose) completed Influenza, high-dose, split virus, trivalent, injectable, preservative free 135 CVX created date: 09/06/2018 administere d date: 05/04/2018 Mental Status Section Date Assessment Total Score Description 09/13/2018 BIMS 15 cognitively int act CAM 0 No delirium ind icated PHQ-9 00 09/09/2018 BIMS 15 cognitively int act CAM 0 No delirium ind icated PHQ-9 00 Problems Problem # Description Date of onset Resolved Date Code CodeSystem Concern Status 1 FALL ON SAME LEVEL FROM SLIPPING, TRIPPING AND STUMBLING WITHOUT SUBSEQUENT STRIKING AGAINST OBJECT, SUBSEQUENT ENCOUNTER 09/05/[address] active 2 DIFFICULTY IN WALKING, NOT ELSEWHERE CLASSIFIED 09/02/[address] active 3 EFFUSION, RIGHT KNEE 09/02/[address] active 4 ESSENTIAL (PRIMARY) HYPERTENSION 09/02/[address] active 5 GASTRO-ESOPHAGEAL REFLUX DISEASE WITHOUT ESOPHAGITIS 09/02/[address] active 6 HYPERLIPIDEMIA, UNSPECIFIED 09/02/[address] active 7 MAJOR DEPRESSIVE DISORDER, SINGLE EPISODE, UNSPECIFIED 09/02/[address] active 8 TYPE 2 DIABETES MELLITUS WITHOUT COMPLICATIONS 09/02/[address] active 9 UNSPECIFIED ASTHMA, UNCOMPLICATED 09/02/[address] active 10 UNSPECIFIED ATRIAL FIBRILLATION 09/02/[address] active 11 UNSPECIFIED INTRACRANIAL INJURY WITHOUT LOSS OF CONSCIOUSNESS, SUBSEQUENT ENCOUNTER 09/02/[address] active 12 UNSTEADINESS ON FEET 09/02/[address] active Reason for Referral No Reasons for Referral Entered Social History Social History Observation Description Start Date End Date Code Code System Current Smoking Status Tobacco smoking consumption unknown 660772728 SNOMED CT Sex Assigned At Male 1950 14996-2 [facility] Vital Signs Code Code System Vitals Name Values and Units Timing Information 9279-1 [facility] Respiratory Rate Value=18.0 Units=/m in 09/13/2018 8462-4 [facility] Blood Pressure-Diastolic Value=66 Un its=mmHg 09/13/2018 8480-6 [facility] Blood Pressure-Systolic Gtbpj=907 Un its=mmHg 09/13/2018 8310-5 [facility] Body Temperature Value=97.6 Units=?? F 09/13/2018 8867-4 [facility] Heart rate Value=52.0 Units=/min 69514-1 [facility] O2 % BldC Oximetry Value=98.0 Units= % 09/13/2018 55734-3 [facility] Pain Level Value=1.0 09/13/2018 61124-2 [facility] Weight Zsaef=157.0 Units=Lbs 8302-2 [facility] Height Value=70.5 Units=Inches 09/03/2018
--- OUTSIDE RECORDS SUMMARY | 2024-09-25 14:37 | XMS_ITS ---
Author Name Montero BRITTNEYHomer Address [address] [place] [address] Phone [phone] [facility] Care Team Providers Care [employer] Name Role Phone Homer Montero Unavailable [phone] [facility] Unavailable Reason for Referral Not Available Allergies, [...] Active 2022-07-27 N/A Other problems related to [facility] facilities and other health care Active 2023-09-28 N/A Encounters Encounters Type Facility Date of Service Diagnosis/Co mplaint New patient,40-59min; chronic exacerbation, 2 stable chronic or 1 acute illness add add modifier 95 for video (do not use for phone, instead use 05775-81) [facility], ([place]) [place]/2022 Unspecified atrial fibrillationOther thrombophiliaChronic obstructive pulmonary [...] (do not use for phone, instead use 71070-40) [facility] New patient,40-59min; chronic exacerbation, 2 stable chronic or 1 acute illness add add modifier 95 for video (do not use for phone, instead use 84630-21) [facility]20[place] New patient,40-59min; chronic exacerbation, 2 stable chronic or 1 acute illness add add modifier 95 for video (do not use for phone, instead use 43887-47) [facility] ([place]2022 New patient,40-59min; chronic exacerbation, 2 stable chronic or 1 acute illness add add modifier 95 for video (do not use for phone, instead use 42218-09) [facility]20[place] New patient,40-59min; chronic exacerbation, 2 stable chronic or 1 acute illness add add modifier 95 for video (do not use for phone, instead use 05522-22) [facility] [place] 07/[place]2022 New patient,40-59min; chronic exacerbation, 2 stable chronic or 1 acute illness add add modifier 95 for video (do not use for phone, instead use 61203-13) [facility] ([place] 07[place]2022 New patient,40-59min; chronic exacerbation, 2 stable chronic or 1 acute illness add add modifier 95 for video (do not use for phone, instead use 67298-07) [facility] New patient,40-59min; chronic exacerbation, 2 stable chronic or 1 acute illness add add modifier 95 for video (do not use for phone, instead use 52610-26) [facility] 07/[place]/2022 No Data Available [facility]2022 History of fallingMyalgia, o ther site No Data Available [facility] [place] 08/18/2022 Unspecified atrial fibrillationOther thrombophiliaChronic obstructive pulmonary disease, unspecifiedUnspecified disorder of circulatory systemChronic pulmonary embolismHeart failure, unspecifiedCardiomyopathy, unspecifiedMajor depressive disorder, recurrent, in full remissionHyperlipidemia, unspecifiedObstructive sleep apnea (adult) (pediatric)History of fallingMyalgia, other siteMorbid (severe) obesity due to excess caloriesInsomnia, unspecifiedSedative, hypnotic or anxiolytic dependence, uncomplicatedPersonal history of nicotine dependence No Data Available [facility] [place] 10/14/2022 Other thrombophiliaUnspecifi ed atrial fibrillationChronic obstructive pulmonary disease, unspecifiedUnspecified disorder of circulatory systemChronic pulmonary embolismHeart failure, unspecifiedCardiomyopathy, unspecifiedMajor depressive disorder, recurrent, in full remissionCoagulation defect, unspecifiedHyperlipidemia, unspecifiedObstructive sleep apnea (adult) (pediatric)History of fallingMyalgia, other siteMorbid (severe) obesity due to excess caloriesBody mass index (BMI) 45.0-49.9, adultInsomnia, unspecifiedSedative, hypnotic or anxiolytic dependence, uncomplicated No Data Available [facility]2022 No Data Available [facility]2022 No Data Available [facility] [place] No Data Available [facility] [place] No Data Available [facility] 09[place]11/2023 Dizziness and giddinessBody mass index (BMI) 40.0-44.9, adult No Data Available [facility] 09/11/2023 No Data Available [facility] [place]2023 No Data Available [facility] [place] 09/11/2023 No Data [...] [facility] 01[place]2024 No Data Available [facility] [place] No Data Available [facility] [place] No Data Available [facility] No Data Available [facility]24 No Data Available [facility]2024 No Data Available [facility]2024 No Data Available [facility] 01/[place]/2024 Vital Signs Date of Collection [...] tive Time Current Smoking Status Former smoker 2024-09-16 0 Sex Male History of Procedures Procedures Service Procedure code Service date Servicing provider Phone# New patient,40-59min; chronic exacerbation, 2 stable chronic or 1 acute illness add add modifier 95 for video (do not use for phone, instead use 65379-08) 27253 2022-07-27 No Data Available No Data Availa [...] Available No Data Available No Data Available 05648 2023-09-11 No Data Available No Data Available [...] modifier 95Continue to see PCP. Follow-up with [facility] as needed for any acute or disease [...] states he can likely get someone from [facility] warfarin- follows closely with cardio [...] to discuss with PCP for medications for residential usehas 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 Follow-up with [facility] as needed for any acute or disease [...] PCP for ongoing monitoring and management Sees guest relations associate Dr. 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 Yes, preferred proxy but not named POAIf so, Who? Sister CarolineDo you have a written Advance Directive? Has Advance DirectiveOther details of discussion: Patient expressed her desire to be DNI code status, he is planning to discuss with PCPToday's plan: Advised patient to discuss wishes with [email or web address] : AD or surrogate was documented in the medical record.
== END 2024-09-25 13:57 | disposition home or self-care (01) ==
LOC: HO.ACS 13:03
PROVIDERS: PCP Internal Medicine; Visit Provider Internal Medicine
DX: Z79.01 Long term (current) use of anticoagulants (principal)

== ENCOUNTER 2024-09-25 13:03 | Outpatient (REF) | payer MEDICARE, MEDICAID, SELFPAY ==
[2024-09-25 13:28] LABS: MANUAL DIFF FLAG NO
[2024-09-25 13:35] LABS: Basophils Absolute Auto 0.1 X10*3/uL (0.0-0.2); Basophils Percent Auto 0.9 % (0-2); Eosinophils Absolute Auto 0.2 X10*3/uL (0.0-0.4); Hemoglobin 13.7 g/dl (14.0-18.0); Imm Gran Abs Auto 0.04 X10*3/uL (0.00-0.03); Imm Gran Pct Auto 0.5 % (0.0-0.4); Lymphocytes Absolute Auto 1.6 X10*3/uL (1.2-4.9); Lymphocytes Percent Auto 21.3 % (20-40); Mean Corpuscular HGB Conc 33.4 g/dl (31.0-36.0); Mean Corpuscular Hemoglobin 31.2 pg (27.0-33.0); Mean Corpuscular Volume 93.4 fL (80.0-98.0); Mean Platelet Volume 10.9 fL (9.4-12.4); Monocytes Absolute Auto 0.5 X10*3/uL (0.1-1.2); Monocytes Percent Auto 5.9 % (2-11); Neutrophils Absolute Auto 5.3 x10*3/uL (2.0-8.3); Neutrophils Percent Auto 69.4 % (45-73); Platelet Count 248 X10*3/uL (160-400); Red Blood Count 4.39 X10*6/uL (4.60-5.80); Red Cell Distribution Width 12.3 % (11.0-16.0); White Blood Count 7.6 X10*3/uL (4.8-10.8)
[2024-09-25 13:43] LABS: Prothrombin Time 54.8 SEC (10.9-12.4)
[2024-09-25 13:54] LABS: INTERNATIONAL NORM RATIO 4.7 (0.9-1.1)
--- OUTSIDE RECORDS SUMMARY | 2024-09-25 14:55 | XMS_ITS ---
Author Organization [facility] Care Team Providers Care Sql Engineer Name Role Phone Eryn Villarreal Unavailable Unavailable Joo Oswald Unavailable Unavailable Brittany Ly Unavailable Unavailable Magalie Brand Unavailable Unavailable Allergies and adverse reactions Code CodeSystem Substance Reaction Severity StartDate Concern Status Shell Fish Unknown 09/02/2018 active Latex Unknown 09/02/2018 active 5933 RXNORM Iodine Unknown 09/02/2018 active Care Team Name Role Address Phone Organization Dates Eryn Villarreal Attending Physician [address] [place] [address], [phone], [place]Office[place] : [facility] [place] 09/02/2018 - 09/13/2018 Joo Oswald Attending Physician [address] [place] [address], [phone], [place]Office[place] : [facility] [place] 09/02/2018 - 09/13/2018 Brittany Ly Attending Physician [address] [place] [address], [phone], [place] (Office): : [facility] [place] 09/02/2018 - 09/13/2018 Magalie Brand Attending Physician [address] [place] [address], [phone], [place]Office[place] : [facility] 09/02/2018 - 09/13/2018 Immunizations Immunization Status Vaccine Details Vaccine Code CodeSystem Date Notes PCV (Prevnar) 13 completed pneumococcal conjugate vaccine, 13 valent lotNumber: [id number] expiry: 07/19/2019 Given 0.5 ml Right Deltoid [...] SUBSEQUENT STRIKING AGAINST OBJECT, SUBSEQUENT ENCOUNTER 09/05/[address] active 2 DIFFICULTY IN WALKING, NOT ELSEWHERE CLASSIFIED 09/02/[address] active 3 EFFUSION, RIGHT KNEE 09/02/[address] active 4 ESSENTIAL (PRIMARY) HYPERTENSION 09/02/[address] active 5 GASTRO-ESOPHAGEAL REFLUX DISEASE WITHOUT ESOPHAGITIS 09/02/[address] active 6 HYPERLIPIDEMIA, UNSPECIFIED 09/02/[address] active 7 MAJOR DEPRESSIVE DISORDER, SINGLE EPISODE, UNSPECIFIED 09/02/[address] active 8 TYPE 2 DIABETES MELLITUS WITHOUT COMPLICATIONS 09/02/[address] active 9 UNSPECIFIED ASTHMA, UNCOMPLICATED 09/02/[address] active 10 UNSPECIFIED ATRIAL FIBRILLATION 09/02/[address] active 11 UNSPECIFIED INTRACRANIAL INJURY WITHOUT LOSS OF CONSCIOUSNESS, SUBSEQUENT ENCOUNTER 09/02/[address] active 12 UNSTEADINESS ON FEET 09/02/[address] active Reason for Referral No Reasons for Referral Entered Social History Social History Observation Description Start Date End Date Code Code System Current Smoking Status Tobacco smoking consumption unknown 737703617 SNOMED CT Sex Assigned At Male 1950 33333-5 [facility] Vital Signs Code Code System Vitals Name Values and Units Timing Information 9279-1 [facility] Respiratory Rate Value=18.0 Units=/m in 09/13/2018 8462-4 [facility] Blood Pressure-Diastolic Value=66 Un its=mmHg 09/13/2018 8480-6 [facility] Blood Pressure-Systolic Qfwkt=017 Un its=mmHg 09/13/2018 8310-5 [facility] Body Temperature Value=97.6 Units=?? F 09/13/2018 8867-4 [facility] Heart rate Value=52.0 Units=/min 21923-4 [facility] O2 % BldC Oximetry Value=98.0 Units= % 09/13/2018 54217-7 [facility] Pain Level Value=1.0 09/13/2018 61771-3 [facility] Weight Mmgho=826.0 Units=Lbs 8302-2 [facility] Height Value=70.5 Units=Inches 09/03/2018
--- OUTSIDE RECORDS SUMMARY | 2024-09-25 14:55 | XMS_ITS ---
Author Name Montero BRITTNEYHomer Address [address] [place] [address] Phone [phone] [facility] Care Team Providers Care Industrial Health And Safety Professor Name Role Phone Homer Montero Unavailable [phone] [facility] Unavailable [phone] Reason for Referral Not Available Allergies, adverse [...] Active 2022-07-27 N/A Other problems related to [facility] facilities and other health care Active 2023-09-28 N/A Encounters Encounters Type Facility Date of Service Diagnosis/Co mplaint New patient,40-59min; chronic exacerbation, 2 stable chronic or 1 acute illness add add modifier 95 for video (do not use for phone, instead use 74024-22) [facility], ([place]) 07/[place]/2022 Unspecified atrial fibrillationOther thrombophiliaChronic obstructive pulmonary [...] (do not use for phone, instead use 01295-24) [facility] [place]20[place] New patient,40-59min; chronic exacerbation, 2 stable chronic or 1 acute illness add add modifier 95 for video (do not use for phone, instead use 18358-72) [facility] [place]2022 New patient,40-59min; chronic exacerbation, 2 stable chronic or 1 acute illness add add modifier 95 for video (do not use for phone, instead use 28436-55) [facility] [place]2022 New patient,40-59min; chronic exacerbation, 2 stable chronic or 1 acute illness add add modifier 95 for video (do not use for phone, instead use 69245-97) [facility] [place] 07[place]2022 New patient,40-59min; chronic exacerbation, 2 stable chronic or 1 acute illness add add modifier 95 for video (do not use for phone, instead use 22157-82) [facility] [place] 07/[place]/2022 New patient,40-59min; chronic exacerbation, 2 stable chronic or 1 acute illness add add modifier 95 for video (do not use for phone, instead use 36448-74) [facility] [place] 07[place]20[place] New patient,40-59min; chronic exacerbation, 2 stable chronic or 1 acute illness add add modifier 95 for video (do not use for phone, instead use 09596-64) [facility]2022 New patient,40-59min; chronic exacerbation, 2 stable chronic or 1 acute illness add add modifier 95 for video (do not use for phone, instead use 83756-68) [facility] [place] 07[place]/2022 No Data Available [facility] [place]/2022 History of fallingMyalgia, o ther site No Data Available [facility] [place] 08/18/2022 Unspecified atrial fibrillationOther thrombophiliaChronic obstructive pulmonary disease, unspecifiedUnspecified disorder of circulatory systemChronic pulmonary embolismHeart failure, unspecifiedCardiomyopathy, unspecifiedMajor depressive disorder, recurrent, in full remissionHyperlipidemia, unspecifiedObstructive sleep apnea (adult) (pediatric)History of fallingMyalgia, other siteMorbid (severe) obesity due to excess caloriesInsomnia, unspecifiedSedative, hypnotic or anxiolytic dependence, uncomplicatedPersonal history of nicotine dependence No Data Available [facility] ([place] 10/14/2022 Other thrombophiliaUnspecifi ed atrial fibrillationChronic obstructive pulmonary disease, unspecifiedUnspecified disorder of circulatory systemChronic pulmonary embolismHeart failure, unspecifiedCardiomyopathy, unspecifiedMajor depressive disorder, recurrent, in full remissionCoagulation defect, unspecifiedHyperlipidemia, unspecifiedObstructive sleep apnea (adult) (pediatric)History of fallingMyalgia, other siteMorbid (severe) obesity due to excess caloriesBody mass index (BMI) 45.0-49.9, adultInsomnia, unspecifiedSedative, hypnotic or anxiolytic dependence, uncomplicated No Data Available [facility] [place] 10[place]14/2022 No Data Available [facility] [place] 10[place]14[place]2022 [facility] Data Available [facility] [place] Data [facility] [place]2022 No Data Available [facility] [place] 09/11/2023 Dizziness and giddinessBody mass index (BMI) 40.0-44.9, adult No Data Available [facility] [place] 09/11/2023 No Data Available [facility] [place]2023 No Data Available [facility] [place] 09/11/2023 No Data Available [facility] [place]2023 No Data Available [facility] [place] 01/25/2024 Other thrombophiliaUnspecifi ed atrial fibrillationOther problems related to medical facilities and other health careChronic obstructive pulmonary disease, unspecifiedChronic pulmonary embolismUnspecified disorder of circulatory systemCardiomyopathy, unspecifiedHeart failure, unspecifiedMajor depressive disorder, recurrent, in full remissionHyperlipidemia, unspecifiedObstructive sleep apnea (adult) (pediatric)History of fallingMyalgia, other siteMorbid (severe) obesity due to excess caloriesBody mass index (BMI) 40.0-44.9, adultInsomnia, unspecified No Data Available [facility] [place]2024 No Data Available [facility] [place] 01/[place]2024 No Data Available [facility] [place]2024 No Data Available [facility] [place]2024 No Data Available [facility] [place] 01/25[place]2024 No Data Available [facility] [place] 01/25/2024 No Data Available [facility] [place] 01/25/2024 No Data Available [facility] [place] 01/25/2024 Vital Signs Date [...] (do not use for phone, instead use 70498-93) 78841 2022-07-27 No Data Available No Data Availa [...] Available No Data Available No Data Available 63398 2023-09-11 No Data Available No Data Available [...] states he can likely get someone from [facility] warfarin- follows closely with cardio and coumadin [...] to discuss with PCP for medications for jail usehas 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 Follow-up with [facility] as needed for any acute or [...] PCP for ongoing monitoring and management Sees production cook Dr. 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 Yes, preferred proxy but not named POAIf so, Who? Sister CarolineDo you have a written Advance Directive? Has Advance DirectiveOther details of discussion: Patient expressed her desire to be DNI code status, he is planning to discuss with PCPToday's plan: Advised patient to discuss wishes with [email or web address] : AD or surrogate was documented in the medical record.
== END 2024-09-25 13:04 | disposition home or self-care (01) ==
LOC: HO.LAB 13:03
PROVIDERS: PCP Internal Medicine; Visit Provider Internal Medicine
DX: Z79.01 Long term (current) use of anticoagulants (principal)
CPT/HCPCS: 36415; 85025; 85610; 99211

== ENCOUNTER 2024-10-02 13:00 | Outpatient (AMB) | payer MEDICARE, MEDICAID, SELFPAY ==
[2024-10-02 13:09] LABS: Prothrombin Time Whole Bld POC 55.3 sec (11.1-13.5); ~PT, ~INR - Anti Coag Clinic 4.6 (0.9-1.1)
--- NOTE | 2024-10-02 13:23 | MHC.OFFVISCO ---
Intake Intake Visit Reasons: Anticoagulation Allergies iodine [IODINE] Allergy (Intermediate, Verified 10/02/24 13:02) HIVES, bloating latex [LATEX] Allergy (Intermediate, Verified 10/02/24 13:02) HIVES shellfish derived [SHELLFISH DERIVED] Allergy (Intermediate, Verified 10/02/24 13:02) ANAPHYLAXIS lisinopril Allergy (Verified 10/02/24 13:02) Unknown Medication List - Last Reconciled 10/02/24 by Priscila Gilliland RN acetaminophen ER 1,300 mg PO BID PRN atorvastatin 10 mg PO BEDTIME bupropion HCl 100 mg PO TID carvedilol 6.25 mg See Protocol PO BID 90 days cetirizine 10 mg PO DAILY cholecalciferol (vitamin D3) (Vitamin D3) 50 mcg PO DAILY dapagliflozin propanediol (Farxiga) 5 mg PO DAILY digoxin 250 mcg PO MOWEFR@0900 duloxetine 40 mg PO DAILY furosemide 20 mg PO BID gabapentin 300 mg PO DAILY gabapentin 100 mg PO BEDTIME multivitamin 1 tab PO DAILY omega-3 fatty acids 500 mg PO DAILY risperidone 1 mg PO BEDTIME tamsulosin (Flomax) 0.8 mg (2 x 0.4 mg) PO BEDTIME tizanidine 4 mg PO BEDTIME warfarin 4 mg See Protocol PO DAILY Nursing Note pt ambulates with cane to ACS - gait steady, c/o arthritis pain with getting up from chair, walking has improved- lost 74 lbs. INR 4.6 STILL out of therapeutic range- PT DOSING LAST WEEK WAS QUESTIONABLE OF WHAT HE ATUCALLY TOOK. Medications and supplements reviewed Patient status: trying to loose weight, eating less, eaing protein (meat and eggs) and peas Medications or supplements: pt states no changes Diet: limited - can obtain peas and greens beans Denies any signs and symptoms of bleeding or clotting or unusual bruising Bleeding, bruising, clotting discussed Nutritional guidance given: cont peas + green beans and protein Dose: hold today and decrease dose to 2mg x 2 days/ 4mg x 5 days F/U INR Date : 11 days next week 10/13/24?? Patient verbalizing understanding of instructions given with read back. Anti-Coag Initial Assessment Social Hx Patient Tobacco Use Status: Former Tobacco user alcohol intake: never Coding Level of Care Code Est Patient Level 1 Diagnoses Current use of anticoagulant therapy Z79.01 Assessment & Plan Assessment & Plan (1) Current use of anticoagulant therapy: Code(s): Z79.01 - senior care (current) use of anticoagulants Category: Medical
--- OUTSIDE RECORDS SUMMARY | 2024-10-02 15:05 | XMS_ITS ---
Author Organization [facility] Care Team Providers Care Manager Country Name Role Phone Eryn Villarreal Unavailable Unavailable Joo Oswald Unavailable Unavailable Brittany Ly Unavailable Unavailable Magalie Brand Unavailable Unavailable Allergies and adverse reactions Code CodeSystem Substance Reaction Severity StartDate Concern Status Shell Fish Unknown 09/02/2018 active Latex Unknown 09/02/2018 active 5933 RXNORM Iodine Unknown 09/02/2018 active Care Team Name Role Address Phone Organization Dates Eryn Villarreal Attending Physician [address] [place] [address], [phone], [place] (Office[place] : [facility] 09/02/2018 - 09/13/2018 Joo Oswald Attending Physician [address] [place] [address], [phone], [place] (Office[place] : [facility] 09/02/2018 - 09/13/2018 Brittany Ly Attending Physician [address] [place] [address], [phone], [place] (Office): : [facility] 09/02/2018 - 09/13/2018 Magalie Brand Attending Physician [address] [place] [address], [phone], [place]Office): : [facility] 09/02/2018 - 09/13/2018 Immunizations Immunization Status Vaccine Details Vaccine Code CodeSystem Date Notes PCV (Prevnar) 13 completed pneumococcal conjugate vaccine, 13 valent lotNumber: [id number] expiry: 07/19/2019 Given 0.5 ml Right Deltoid [...] SUBSEQUENT STRIKING AGAINST OBJECT, SUBSEQUENT ENCOUNTER 09/05/[id number] active 2 DIFFICULTY IN WALKING, NOT ELSEWHERE CLASSIFIED 09/02/[address] active 3 EFFUSION, RIGHT KNEE 09/02/[address] active 4 ESSENTIAL (PRIMARY) HYPERTENSION 09/02/[address] active 5 GASTRO-ESOPHAGEAL REFLUX DISEASE WITHOUT ESOPHAGITIS 09/02/[address] active 6 HYPERLIPIDEMIA, UNSPECIFIED 09/02/[address] active 7 MAJOR DEPRESSIVE DISORDER, SINGLE EPISODE, UNSPECIFIED 09/02/[address] active 8 TYPE 2 DIABETES MELLITUS WITHOUT COMPLICATIONS 09/02/[address] active 9 UNSPECIFIED ASTHMA, UNCOMPLICATED 09/02/[address] active 10 UNSPECIFIED ATRIAL FIBRILLATION 09/02/[address] active 11 UNSPECIFIED INTRACRANIAL INJURY WITHOUT LOSS OF CONSCIOUSNESS, SUBSEQUENT ENCOUNTER 09/02/[address] active 12 UNSTEADINESS ON FEET 09/02/[address] active Reason for Referral No Reasons for Referral Entered Social History Social History Observation Description Start Date End Date Code Code System Current Smoking Status Tobacco smoking consumption unknown 570922066 SNOMED CT Sex Assigned At Male 1950 11196-[facility] Vital Signs Code Code System Vitals Name Values and Units Timing Information 9279-1 [facility] Respiratory Rate Value=18.0 Units=/m in 09/13/2018 8462-4 [facility] Blood Pressure-Diastolic Value=66 Un its=mmHg 09/13/2018 8480-6 [facility] Blood Pressure-Systolic Gusdb=968 Un its=mmHg 09/13/2018 8310-5 [facility] Body Temperature Value=97.6 Units=?? F 09/13/2018 8867-4 [facility] Heart rate Value=52.0 Units=/min 37403-4 [facility] O2 % BldC Oximetry Value=98.0 Units= % 09/13/2018 50627-8 [facility] Pain Level Value=1.0 09/13/2018 20486-9 [facility] Weight Vbwzd=198.0 Units=Lbs 8302-2 [facility] Height Value=70.5 Units=Inches 09/03/2018
--- OUTSIDE RECORDS SUMMARY | 2024-10-02 15:05 | XMS_ITS ---
Author Name Montero BRITTNEYHomer Address [address] [place] [address] Phone [phone] [facility] Care Team Providers Care Airline Counter Agent Name Role Phone Homer Montero Unavailable [phone] [facility] Unavailable Reason for Referral Not Available Allergies, [...] 2022-07-27 N/A Other problems related to [facility] facilities and other health care Active 2023-09-28 N/A Encounters Encounters Type Facility Date of Service Diagnosis/Co mplaint New patient,40-59min; chronic exacerbation, 2 stable chronic or 1 acute illness add add modifier 95 for video (do not use for phone, instead use 07465-20) [facility]2022 Unspecified atrial fibrillationOther thrombophiliaChronic obstructive pulmonary [...] (do not use for phone, instead use 45510-33) [facility] New patient,40-59min; chronic exacerbation, 2 stable chronic or 1 acute illness add add modifier 95 for video (do not use for phone, instead use 54292-57) [facility]20[place] New patient,40-59min; chronic exacerbation, 2 stable chronic or 1 acute illness add add modifier 95 for video (do not use for phone, instead use 98025-41) [facility]2022 New patient,40-59min; chronic exacerbation, 2 stable chronic or 1 acute illness add add modifier 95 for video (do not use for phone, instead use 29952-13) [facility] 07[place]2022 New patient,40-59min; chronic exacerbation, 2 stable chronic or 1 acute illness add add modifier 95 for video (do not use for phone, instead use 59613-39) [facility] [place] 07[place]2022 New patient,40-59min; chronic exacerbation, 2 stable chronic or 1 acute illness add add modifier 95 for video (do not use for phone, instead use 84465-64) [facility] ([place]) 07/27/2022 New patient,40-59min; chronic exacerbation, 2 stable chronic or 1 acute illness add add modifier 95 for video (do not use for phone, instead use 91450-70) [facility] 07[place]27[place]2022 New patient,40-59min; chronic exacerbation, 2 stable chronic or 1 acute illness add add modifier 95 for video (do not use for phone, instead use 12880-77) [facility] 07[place]/2022 No Data Available [facility]/31/2022 History of fallingMyalgia, o ther site No Data Available [facility] 08/18/2022 Unspecified atrial fibrillationOther thrombophiliaChronic obstructive pulmonary disease, unspecifiedUnspecified disorder of circulatory systemChronic pulmonary embolismHeart failure, unspecifiedCardiomyopathy, unspecifiedMajor depressive disorder, recurrent, in full remissionHyperlipidemia, unspecifiedObstructive sleep apnea (adult) (pediatric)History of fallingMyalgia, other siteMorbid (severe) obesity due to excess caloriesInsomnia, unspecifiedSedative, hypnotic or anxiolytic dependence, uncomplicatedPersonal history of nicotine dependence No Data Available [facility] [place] 10/14/2022 Other thrombophiliaUnspecifi ed atrial fibrillationChronic obstructive pulmonary disease, unspecifiedUnspecified disorder of circulatory systemChronic pulmonary embolismHeart failure, unspecifiedCardiomyopathy, unspecifiedMajor depressive disorder, recurrent, in full remissionCoagulation defect, unspecifiedHyperlipidemia, unspecifiedObstructive sleep apnea (adult) (pediatric)History of fallingMyalgia, other siteMorbid (severe) obesity due to excess caloriesBody mass index (BMI) 45.0-49.9, adultInsomnia, unspecifiedSedative, hypnotic or anxiolytic dependence, uncomplicated No Data Available [facility] 10[place]14/2022 No Data Available [facility] 10[place]14/2022 No Data Available [facility] [place] 10/14[place]2022 No Data Available [facility] [place] 10/14/2022 No Data Available [facility] 09/11/2023 Dizziness and giddinessBody mass index (BMI) 40.0-44.9, adult No Data Available [facility] [place] 09/11/2023 No Data Available [facility] [place] 09/11/2023 No Data Available [facility] [place] 09/11/2023 No Data Available [facility] 09/11/2023 No Data Available [facility] [place] 01/25/2024 Other thrombophiliaUnspecifi ed atrial fibrillationOther problems related to medical facilities and other health careChronic obstructive pulmonary disease, unspecifiedChronic pulmonary embolismUnspecified disorder of circulatory systemCardiomyopathy, unspecifiedHeart failure, unspecifiedMajor depressive disorder, recurrent, in full remissionHyperlipidemia, unspecifiedObstructive sleep apnea (adult) (pediatric)History of fallingMyalgia, other siteMorbid (severe) obesity due to excess caloriesBody mass index (BMI) 40.0-44.9, adultInsomnia, unspecified No Data Available [facility] [place] 01/25/2024 No Data Available [facility] [place] 01/25/2024 No Data Available [facility] [place] 01/25/2024 No Data Available [facility] 01/25/2024 No Data Available [facility] 01/25/2024 No Data Available [facility] 01[place]25/2024 No Data Available [facility] 01/25/2024 No Data Available [facility] 01/25/2024 Vital Signs Date of Collection [...] Time Current Smoking Status Former smoker 2024-09-16 7 Sex Male History of Procedures Procedures Service Procedure code Service date Servicing provider Phone# New patient,40-59min; chronic exacerbation, 2 stable chronic or 1 acute illness add add modifier 95 for video (do not use for phone, instead use 51192-85) 45156 2022-07-27 No Data Available No Data Availa [...] Available No Data Available No Data Available 16164 2023-09-11 No Data Available No Data Available [...] 1160F 2024-01-25 No Data Available No Data Qutia ilable Functional Status Assessed (1170F) 1170F 2024-01-25 [...] states he can likely get someone from [facility] warfarin- follows closely with cardio and [...] to discuss with PCP for medications for mcfp usehas 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 [facility] [...] states he can likely get someone from [facility] warfarin- follows closely with cardio and [...] to discuss with PCP for medications for oysterman use seen by psychiatry has appt next [...] call CBContinue to see PCP. Follow-up with [facility] as needed for any acute or [...] PCP for ongoing monitoring and management Sees materials tech Dr. Loomis01/25/24: Denies any dyspnea with exertion.Other [...] states he can likely get someone from [facility] 01/25/24: PHQ-4=5 (Mild), continues to follow [...] diet regimen; His goal is to weigh [id number] was sent hydroxyzine recently and worked better than his lorazepamstates his pain is what impedes his sleepingdiscussed use of OTC melatonin 10mg states he will try advised to discuss with PCP for medications for oysterman use seen by psychiatry has appt next [...] discussedDo you have a Durable Power of Price Accuracy Supervisor for Healthcare, or Healthcare Proxy Or Guardianship? Yes, preferred proxy but not named POAIf so, Who? Sister CarolineDo you have a written Advance Directive? Has Advance DirectiveOther details of discussion: Patient expressed her desire to be DNI code status, he is planning to discuss with PCPToday's plan: Advised patient to discuss wishes with [id number] : AD or surrogate was documented in the medical record.
== END 2024-10-02 13:29 | disposition home or self-care (01) ==
LOC: HO.ACS 13:00
PROVIDERS: PCP Internal Medicine; Visit Provider Internal Medicine
DX: Z79.01 Long term (current) use of anticoagulants (principal)

== ENCOUNTER → 2024-10-02 13:00 | Outpatient (BNVA) | payer MEDICARE, MEDICAID, SELFPAY | PROVIDERS: PCP Internal Medicine; Visit Provider Internal Medicine | DX: I26.99 Other pulmonary embolism without acute cor pulmonale (principal); Z79.01 Long term (current) use of anticoagulants; Z51.81 Encounter for therapeutic drug level monitoring | CPT/HCPCS: 85610; 99211 ==

== ENCOUNTER 2024-10-13 10:06 | Outpatient (AMB) | payer MEDICARE, MEDICAID, SELFPAY ==
--- NOTE | 2024-10-13 10:24 | MHC.OFFVISCO ---
Intake Intake Visit Reasons: Anticoagulation Allergies iodine [IODINE] Allergy (Intermediate, Verified 10/13/24 10:08) HIVES, bloating latex [LATEX] Allergy (Intermediate, Verified 10/13/24 10:08) HIVES shellfish derived [SHELLFISH DERIVED] Allergy (Intermediate, Verified 10/13/24 10:08) ANAPHYLAXIS lisinopril Allergy (Verified 10/13/24 10:08) Unknown Medication List - Last Reconciled 10/13/24 by Brittany German RN acetaminophen ER 1,300 mg PO BID PRN atorvastatin 10 mg PO BEDTIME bupropion HCl 100 mg PO TID carvedilol 6.25 mg See Protocol PO BID 90 days cetirizine 10 mg PO DAILY cholecalciferol (vitamin D3) (Vitamin D3) 50 mcg PO DAILY dapagliflozin propanediol (Farxiga) 5 mg PO DAILY digoxin 250 mcg PO MOWEFR@0900 duloxetine 40 mg PO DAILY furosemide 20 mg PO BID gabapentin 300 mg PO DAILY gabapentin 100 mg PO BEDTIME multivitamin 1 tab PO DAILY omega-3 fatty acids 500 mg PO DAILY risperidone 1 mg PO BEDTIME tamsulosin (Flomax) 0.8 mg (2 x 0.4 mg) PO BEDTIME tizanidine 4 mg PO BEDTIME warfarin 4 mg See Protocol PO DAILY Nursing Note INR: 3.2?out of therapeutic range of 2-3 Medications and supplements reviewed Patient status: well Medications or supplements: no changes Diet: usual diet for pt Denies any signs and symptoms of bleeding or clotting or unusual bruising Bleeding, bruising, clotting discussed Nutritional guidance given: to have a serving of greens today but pt states he doesn't eat greens so will decrease dose Dose: decrease today's dose to 2mg (4mg) then decrease weekly dose to 4mg X 4 days and 2 mg X 3 days (instead of 2 days) F/U INR Date : 2 weeks? Patient verbalizing understanding of instructions given. Anti-Coag Initial Assessment Social Hx Patient Tobacco Use Status: Former Tobacco user alcohol intake: never Coding Level of Care Code Est Patient Level 1 Diagnoses Current use of anticoagulant therapy Z79.01 Results AMB INR Fingerstick AMB INR Fingerstick 3.2 Last Edit by Brittany German RN on 10/13/24 10:13 interface delay Assessment & Plan Assessment & Plan (1) Current use of anticoagulant therapy: Code(s): Z79.01 - [facility] (current) use of anticoagulants Category: Medical
[2024-10-13 10:45] LABS: Prothrombin Time Whole Bld POC 38.4 sec (11.1-13.5); ~PT, ~INR - Anti Coag Clinic 3.2 (0.9-1.1)
== END 2024-10-13 10:27 | disposition home or self-care (01) ==
LOC: HO.ACS 10:06
PROVIDERS: PCP Internal Medicine; Visit Provider Internal Medicine Medical Oncology
DX: Z79.01 Long term (current) use of anticoagulants (principal)

== ENCOUNTER → 2024-10-13 10:06 | Outpatient (BNVA) | payer MEDICARE, MEDICAID, SELFPAY | PROVIDERS: PCP Internal Medicine; Visit Provider Internal Medicine Medical Oncology | DX: I26.99 Other pulmonary embolism without acute cor pulmonale (principal); Z79.01 Long term (current) use of anticoagulants; Z51.81 Encounter for therapeutic drug level monitoring | CPT/HCPCS: 85610; 99211 ==

== ENCOUNTER 2024-10-31 09:26 | Outpatient (AMB) | payer MEDICARE, MEDICAID, SELFPAY ==
[2024-10-31 09:37] LABS: Prothrombin Time Whole Bld POC 43.7 sec (11.1-13.5); ~PT, ~INR - Anti Coag Clinic 3.6 (0.9-1.1)
--- NOTE | 2024-10-31 09:41 | MHC.OFFVISCO ---
Intake Intake Visit Reasons: Anticoagulation Allergies iodine [IODINE] Allergy (Intermediate, Verified 10/31/24 09:32) HIVES, bloating latex [LATEX] Allergy (Intermediate, Verified 10/31/24 09:32) HIVES shellfish derived [SHELLFISH DERIVED] Allergy (Intermediate, Verified 10/31/24 09:32) ANAPHYLAXIS lisinopril Allergy (Verified 10/31/24 09:32) Unknown Medication List - Last Reconciled 10/31/24 by Brittany German RN acetaminophen ER 1,300 mg PO BID PRN atorvastatin 10 mg PO BEDTIME bupropion HCl 100 mg PO TID carvedilol 6.25 mg See Protocol PO BID 90 days cetirizine 10 mg PO DAILY cholecalciferol (vitamin D3) (Vitamin D3) 50 mcg PO DAILY dapagliflozin propanediol (Farxiga) 5 mg PO DAILY digoxin 250 mcg PO MOWEFR@0900 duloxetine 40 mg PO DAILY furosemide 20 mg PO BID gabapentin 300 mg PO DAILY gabapentin 100 mg PO BEDTIME multivitamin 1 tab PO DAILY omega-3 fatty acids 500 mg PO DAILY risperidone 1 mg PO BEDTIME tamsulosin (Flomax) 0.8 mg (2 x 0.4 mg) PO BEDTIME tizanidine 4 mg PO BEDTIME warfarin 4 mg See Protocol PO DAILY Nursing Note INR: 3.6?out of therapeutic range of 2-3 Medications and supplements reviewed Patient status: usual state of health Medications or supplements: no changes Diet: usual diet for pt Denies any signs and symptoms of bleeding or clotting or unusual bruising Bleeding, bruising, clotting discussed Nutritional guidance given: to have a serving of greens today then balance Dose: hold today's dose of 4mg then weekly dose decreased to 2mg X 4 days and 4mg X 3 days (M/W/F) F/U INR Date: 2 weeks?? Patient verbalizing understanding of instructions given. Anti-Coag Initial Assessment Social Hx Patient Tobacco Use Status: Former Tobacco user alcohol intake: never Coding Level of Care Code Est Patient Level 1 Diagnoses Current use of anticoagulant therapy Z79.01 Results AMB INR Fingerstick AMB INR Fingerstick 3.6 Last Edit by Brittany German RN on 10/31/24 09:36 interface delay Assessment & Plan Assessment & Plan (1) Current use of anticoagulant therapy: Code(s): Z79.01 - senior living (current) use of anticoagulants Category: Medical
--- OUTSIDE RECORDS SUMMARY | 2024-10-31 10:32 | XMS_ITS ---
Author Name Montero BRITTNEYHomer Address [address] [place] [address] Phone [phone] [facility] Care Team Providers Care Drinking Water Technician Name Role Phone Homer Montero Unavailable [phone] [facility] Unavailable [phone] Reason for Referral Not Available Allergies, adverse [...] 2022-07-27 N/A Other problems related to [facility] facilities and other health care Active 2023-09-28 N/A Encounters Encounters Type Facility Date of Service Diagnosis/Co mplaint New patient,40-59min; chronic exacerbation, 2 stable chronic or 1 acute illness add add modifier 95 for video (do not use for phone, instead use 40793-70) [facility] [place] Unspecified atrial fibrillationOther thrombophiliaChronic obstructive pulmonary [...] (do not use for phone, instead use 53224-38) [facility] [place] New patient,40-59min; chronic exacerbation, 2 stable chronic or 1 acute illness add add modifier 95 for video (do not use for phone, instead use 46447-06) [facility] [place] New patient,40-59min; chronic exacerbation, 2 stable chronic or 1 acute illness add add modifier 95 for video (do not use for phone, instead use 25079-25) [facility] New patient,40-59min; chronic exacerbation, 2 stable chronic or 1 acute illness add add modifier 95 for video (do not use for phone, instead use 81998-65) [facility] [place] New patient,40-59min; chronic exacerbation, 2 stable chronic or 1 acute illness add add modifier 95 for video (do not use for phone, instead use 59588-92) [facility] [place] New patient,40-59min; chronic exacerbation, 2 stable chronic or 1 acute illness add add modifier 95 for video (do not use for phone, instead use 55190-84) [facility] ([place] 07[place]20[place] New patient,40-59min; chronic exacerbation, 2 stable chronic or 1 acute illness add add modifier 95 for video (do not use for phone, instead use 17250-99) [facility] [place] New patient,40-59min; chronic exacerbation, 2 stable chronic or 1 acute illness add add modifier 95 for video (do not use for phone, instead use 35117-87) [facility] [place] No Data Available [facility] [place]2022 History of fallingMyalgia, o ther site No Data Available [facility] [place]2022 Unspecified atrial fibrillationOther thrombophiliaChronic obstructive pulmonary disease, unspecifiedUnspecified disorder of circulatory systemChronic pulmonary embolismHeart failure, unspecifiedCardiomyopathy, unspecifiedMajor depressive disorder, recurrent, in full remissionHyperlipidemia, unspecifiedObstructive sleep apnea (adult) (pediatric)History of fallingMyalgia, other siteMorbid (severe) obesity due to excess caloriesInsomnia, unspecifiedSedative, hypnotic or anxiolytic dependence, uncomplicatedPersonal history of nicotine dependence No Data Available [facility] [place]2022 Other thrombophiliaUnspecifi ed atrial fibrillationChronic obstructive pulmonary disease, unspecifiedUnspecified disorder of circulatory systemChronic pulmonary embolismHeart failure, unspecifiedCardiomyopathy, unspecifiedMajor depressive disorder, recurrent, in full remissionCoagulation defect, unspecifiedHyperlipidemia, unspecifiedObstructive sleep apnea (adult) (pediatric)History of fallingMyalgia, other siteMorbid (severe) obesity due to excess caloriesBody mass index (BMI) 45.0-49.9, adultInsomnia, unspecifiedSedative, hypnotic or anxiolytic dependence, uncomplicated No Data Available [facility]2022 No Data Available [facility]20[place] [facility] [place] [facility]/[place] [place] No Data Available [facility] 09[place]11/2023 Dizziness and giddinessBody mass index (BMI) 40.0-44.9, adult No Data Available [facility] 09/11/2023 [facility] [place] No Data Available [facility] 09/[place]2023 No Data [facility] [place] [facility] [place]2024 Other thrombophiliaUnspecifi ed atrial fibrillationOther problems related to medical facilities and other health careChronic obstructive pulmonary disease, unspecifiedChronic pulmonary embolismUnspecified disorder of circulatory systemCardiomyopathy, unspecifiedHeart failure, unspecifiedMajor depressive disorder, recurrent, in full remissionHyperlipidemia, unspecifiedObstructive sleep apnea (adult) (pediatric)History of fallingMyalgia, other siteMorbid (severe) obesity due to excess caloriesBody mass index (BMI) 40.0-44.9, adultInsomnia, unspecified No Data [facility] [place] No Data [facility] [place] [facility] [place] Data [place] [facility] [place] Data Available [facility] [place] Data Available [facility] [place] Data Available [facility] [place] No Data Available [facility] [place] 01/[place]2024 Vital Signs Date of Collection [...] tive Time Current Smoking Status Former smoker 2024-10-17 7 Sex Male History of Procedures Procedures Service Procedure code Service date Servicing provider Phone# New patient,40-59min; chronic exacerbation, 2 stable chronic or 1 acute illness add add modifier 95 for video (do not use for phone, instead use 31921-85) 61131 2022-07-27 No Data Available No Data Availa [...] Available No Data Available No Data Available [id number] 2023-09-11 No Data Available No Data Available [...] states he can likely get someone from [facility] warfarin- follows closely with cardio [...] to discuss with PCP for medications for penitentiary usehas 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 [facility] [...] states he can likely get someone from [facility] warfarin- follows closely with cardio [...] to discuss with PCP for medications for continuous churn buttermaker use seen by psychiatry has appt next [...] call CBContinue to see PCP. Follow-up with [facility] as needed for any acute or [...] PCP for ongoing monitoring and management Sees newspaper deliverer Dr. Loomis01/25/24: Denies any dyspnea with exertion.Other [...] states he can likely get someone from [facility] 01/25/24: PHQ-4=5 (Mild), continues to [...] diet regimen; His goal is to weigh [id number] was sent hydroxyzine recently and worked better than his lorazepamstates his pain is what impedes his sleepingdiscussed use of OTC melatonin 10mg states he will try advised to discuss with PCP for medications for continuous churn buttermaker use seen by psychiatry has appt next [...] discussedDo you have a Durable Power of Aircraft Structural Design Engineer for Healthcare, or Healthcare Proxy Or Guardianship? Yes, preferred proxy but not named POAIf so, Who? Sister CarolineDo you have a written Advance Directive? Has Advance DirectiveOther details of discussion: Patient expressed her desire to be DNI code status, he is planning to discuss with PCPToday's plan: Advised patient to discuss wishes with [email or web address] : AD or surrogate was documented in the medical record.
== END 2024-10-31 09:49 | disposition home or self-care (01) ==
LOC: HO.ACS 09:26
PROVIDERS: PCP Internal Medicine; Visit Provider Internal Medicine Medical Oncology
DX: Z79.01 Long term (current) use of anticoagulants (principal)

== ENCOUNTER → 2024-10-31 09:26 | Outpatient (BNVA) | payer MEDICARE, MEDICAID, SELFPAY | PROVIDERS: PCP Internal Medicine; Visit Provider Internal Medicine Medical Oncology | DX: I26.99 Other pulmonary embolism without acute cor pulmonale (principal); Z51.81 Encounter for therapeutic drug level monitoring; Z79.01 Long term (current) use of anticoagulants | CPT/HCPCS: 85610; 99211 ==

== ENCOUNTER → 2024-11-15 13:17 | Outpatient (BNVA) | payer MEDICARE, MEDICAID, SELFPAY | PROVIDERS: PCP Internal Medicine; Visit Provider Internal Medicine Medical Oncology | DX: I26.99 Other pulmonary embolism without acute cor pulmonale (principal); Z79.01 Long term (current) use of anticoagulants; Z51.81 Encounter for therapeutic drug level monitoring | CPT/HCPCS: 85610; 99211 ==

== ENCOUNTER 2024-12-01 13:26 | Outpatient (AMB) | payer MEDICARE, MEDICAID, SELFPAY ==
--- OUTSIDE RECORDS SUMMARY | 2024-12-01 13:28 | XMS_ITS ---
Author Name Montero BRITTNEYHomer Address [address] [place] [address] Phone [phone] [facility] Care Team Providers Care Agricultural Commodities Grader Name Role Phone Homer Montero Unavailable [phone] [facility] Unavailable Reason for Referral Not [...] Active 2022-07-27 N/A Other problems related to [facility] facilities and other health care Active 2023-09-28 N/A Encounters Encounters Type Facility Date of Service Diagnosis/Co mplaint New patient,40-59min; chronic exacerbation, 2 stable chronic or 1 acute illness add add modifier 95 for video (do not use for phone, instead use 34990-27) [facility] ([place]) 07/27/2022 Unspecified atrial fibrillationOther thrombophiliaChronic obstructive pulmonary [...] (do not use for phone, instead use 09506-54) [facility] [place]20[place] New patient,40-59min; chronic exacerbation, 2 stable chronic or 1 acute illness add add modifier 95 for video (do not use for phone, instead use 90313-61) [facility] [place] 07[place]20[place] New patient,40-59min; chronic exacerbation, 2 stable chronic or 1 acute illness add add modifier 95 for video (do not use for phone, instead use 87600-45) [facility] [place] 07/[place]/2022 New patient,40-59min; chronic exacerbation, 2 stable chronic or 1 acute illness add add modifier 95 for video (do not use for phone, instead use 44723-96) [facility] [place] 07[place]20[place] New patient,40-59min; chronic exacerbation, 2 stable chronic or 1 acute illness add add modifier 95 for video (do not use for phone, instead use 72331-32) [facility] [place] 07[place]20[place] New patient,40-59min; chronic exacerbation, 2 stable chronic or 1 acute illness add add modifier 95 for video (do not use for phone, instead use 01680-41) [facility] [place] 07[place]20[place] New patient,40-59min; chronic exacerbation, 2 stable chronic or 1 acute illness add add modifier 95 for video (do not use for phone, instead use 38945-91) [facility] 07[place]20[place] New patient,40-59min; chronic exacerbation, 2 stable chronic or 1 acute illness add add modifier 95 for video (do not use for phone, instead use 13924-69) [facility] [place] 07/[place]/2022 No Data Available [facility] [place]20[place] History of fallingMyalgia, o ther site No Data Available [facility] [place] 08/18/2022 Unspecified atrial fibrillationOther thrombophiliaChronic obstructive pulmonary disease, unspecifiedUnspecified disorder of circulatory systemChronic pulmonary embolismHeart failure, unspecifiedCardiomyopathy, unspecifiedMajor depressive disorder, recurrent, in full remissionHyperlipidemia, unspecifiedObstructive sleep apnea (adult) (pediatric)History of fallingMyalgia, other siteMorbid (severe) obesity due to excess caloriesInsomnia, unspecifiedSedative, hypnotic or anxiolytic dependence, uncomplicatedPersonal history of nicotine dependence No Data Available [facility] [place] 10[place]14/2022 Other thrombophiliaUnspecifi ed atrial fibrillationChronic obstructive pulmonary disease, unspecifiedUnspecified disorder of circulatory systemChronic pulmonary embolismHeart failure, unspecifiedCardiomyopathy, unspecifiedMajor depressive disorder, recurrent, in full remissionCoagulation defect, unspecifiedHyperlipidemia, unspecifiedObstructive sleep apnea (adult) (pediatric)History of fallingMyalgia, other siteMorbid (severe) obesity due to excess caloriesBody mass index (BMI) 45.0-49.9, adultInsomnia, unspecifiedSedative, hypnotic or anxiolytic dependence, uncomplicated No Data Available [facility] [place]14[place]2022 No Data Available [facility] [place] 10[place]20[place] [facility] Data Available [facility]/[place] [place] No Data Available [facility] [place] 09[place]11/2023 Dizziness and giddinessBody mass index (BMI) 40.0-44.9, adult No Data Available [facility] [place] 09/11/2023 No Data Available [facility] [place] No Data Available [facility] [place] 09/11/2023 No Data Available [facility] [place]2023 No Data Available [facility] [place] 01/25/2024 Other thrombophiliaUnspecifi ed atrial fibrillationOther problems related to medical facilities and other health careChronic obstructive pulmonary disease, unspecifiedChronic pulmonary embolismUnspecified disorder of circulatory systemCardiomyopathy, unspecifiedHeart failure, unspecifiedMajor depressive disorder, recurrent, in full remissionHyperlipidemia, unspecifiedObstructive sleep apnea (adult) (pediatric)History of fallingMyalgia, other siteMorbid (severe) obesity due to excess caloriesBody mass index (BMI) 40.0-44.9, adultInsomnia, unspecified No Data Available [facility] [place] 01/[place]2024 No Data Available [facility] [place] 01/25/2024 No Data Available [facility] [place] 01[place]2024 No Data Available [facility] [place]20[place] No Data Available [facility] [place] 01/[place]2024 No Data Available [facility] [place] 01/[place]/2024 No Data Available [facility] [place] 01/[place]2024 No Data Available [facility] [place] 01/25/2024 Vital Signs Date of [...] tive Time Current Smoking Status Former smoker 2024-11-16 8 Sex Male History of Procedures Procedures Service Procedure code Service date Servicing provider Phone# New patient,40-59min; chronic exacerbation, 2 stable chronic or 1 acute illness add add modifier 95 for video (do not use for phone, instead use 67847-74) 70070 2022-07-27 No Data Available No Data Availa [...] Available No Data Available No Data Available [id number] 2023-09-11 No Data Available No Data Available [...] states he can likely get someone from [facility] warfarin- follows closely with cardio and [...] to discuss with PCP for medications for shelter usehas 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 [facility] [...] states he can likely get someone from [facility] warfarin- follows closely with cardio and [...] to discuss with PCP for medications for shelter use seen by psychiatry has appt next [...] call CBContinue to see PCP. Follow-up with [facility] as needed for any acute or [...] PCP for ongoing monitoring and management Sees sewage reticulation drafting officer Dr. Loomis01/25/24: Denies any dyspnea with exertion.Other [...] states he can likely get someone from [facility] 01/25/24: PHQ-4=5 (Mild), continues to follow [...] diet regimen; His goal is to weigh [id number] was sent hydroxyzine recently and worked better than his lorazepamstates his pain is what impedes his sleepingdiscussed use of OTC melatonin 10mg states he will try advised to discuss with PCP for medications for shelter use seen by psychiatry has appt next [...] discussedDo you have a Durable Power of Shellfish Harvester for Healthcare, or Healthcare Proxy Or Guardianship? Yes, preferred proxy but not named POAIf so, Who? Sister CarolineDo you have a written Advance Directive? Has Advance DirectiveOther details of discussion: Patient expressed her desire to be DNI code status, he is planning to discuss with PCPToday's plan: Advised patient to discuss wishes with [email or web address] : AD or surrogate was documented in the medical record.
[2024-12-01 13:34] LABS: Prothrombin Time Whole Bld POC 43.4 sec (11.1-13.5); ~PT, ~INR - Anti Coag Clinic 3.6 (0.9-1.1)
--- NOTE | 2024-12-01 13:50 | MHC.OFFVISCO ---
Intake Intake Visit Reasons: Anticoagulation Allergies iodine [IODINE] Allergy (Intermediate, Verified 12/01/24 13:28) HIVES, bloating latex [LATEX] Allergy (Intermediate, Verified 12/01/24 13:28) HIVES shellfish derived [SHELLFISH DERIVED] Allergy (Intermediate, Verified 12/01/24 13:28) ANAPHYLAXIS lisinopril Allergy (Verified 12/01/24 13:28) Unknown Medication List - Last Reconciled 12/01/24 by Brittany German RN acetaminophen ER 1,300 mg PO BID PRN atorvastatin 10 mg PO BEDTIME bupropion HCl 100 mg PO TID carvedilol 6.25 mg PO BID cetirizine 10 mg PO DAILY cholecalciferol (vitamin D3) (Vitamin D3) 50 mcg PO DAILY dapagliflozin propanediol (Farxiga) 5 mg PO DAILY digoxin 250 mcg PO 3XW duloxetine 40 mg PO DAILY furosemide 20 mg PO BID gabapentin 300 mg PO DAILY gabapentin 100 mg PO BEDTIME multivitamin 1 tab PO DAILY omega-3 fatty acids 500 mg PO DAILY risperidone 1 mg PO BEDTIME tamsulosin (Flomax) 0.8 mg (2 x 0.4 mg) PO BEDTIME tizanidine 4 mg PO BEDTIME warfarin 4 mg See Protocol PO DAILY Nursing Note INR: 3.6?out of therapeutic range 2-3 Medications and supplements reviewed Patient status: no changes Medications or supplements: no changes Diet: no changes Denies any signs and symptoms of bleeding or clotting or unusual bruising Bleeding, bruising, clotting discussed Nutritional guidance given: balance foods that raise with foods that lower the INR Dose: decrease today's dose to 2mg (usual 4mg) then 2mg X 4 days and 4mg X 3 days (M/W/F) F/U INR Date: 12/15/24 Patient verbalizing understanding of instructions with read back given. Anti-Coag Initial Assessment Social Hx Patient Tobacco Use Status: Former Tobacco user alcohol intake: never Coding Level of Care Code Est Patient Level 1 Diagnoses Current use of anticoagulant therapy Z79.01 Assessment & Plan Assessment & Plan (1) Current use of anticoagulant therapy: Code(s): Z79.01 - intermediate (current) use of anticoagulants Category: Medical
== END 2024-12-01 13:56 | disposition home or self-care (01) ==
LOC: HO.ACS 13:26
PROVIDERS: PCP Internal Medicine; Visit Provider Internal Medicine Medical Oncology
DX: Z79.01 Long term (current) use of anticoagulants (principal)

== ENCOUNTER → 2024-12-01 13:26 | Outpatient (BNVA) | payer MEDICARE, MEDICAID, SELFPAY | PROVIDERS: PCP Internal Medicine; Visit Provider Internal Medicine Medical Oncology | DX: I26.99 Other pulmonary embolism without acute cor pulmonale (principal); Z79.01 Long term (current) use of anticoagulants; Z51.81 Encounter for therapeutic drug level monitoring | CPT/HCPCS: 85610; 99211 ==

== ENCOUNTER 2024-12-05 06:14 | Emergency (ER) | payer MEDICARE, MEDICAID, SELFPAY ==
[2024-12-05] VITALS (7 sets, daily range): BP systolic 99–135; BP diastolic 57–79; PULSE 67–98; RESP 16–20; TEMP 36.4–37.3; O2SAT 96–97; BMI 42.6
--- NOTE | 2024-12-05 | ECG_ITS ---
Test Reason : fall Blood Pressure : */* mmHG Vent. Rate : 97 BPM Atrial Rate : * BPM P-R Int : * ms QRS Dur : 104 ms QT Int : 394 ms P-R-T Axes : * -43 29 degrees QTcB Int : 500 ms Artifact Atrial fibrillation Left axis deviation Incomplete right bundle branch block Nonspecific ST abnormality Abnormal ECG When compared with ECG of 23-Aug-2024 09:09, Nonspecific T wave abnormality no longer evident in Lateral leads Referred By: Generic ED Physician Electronically Signed By: Campbell Petty
--- NOTE | ~2024-12-05 | XR_ITS ---
EXAMINATION: XR CHEST 1 VIEW HISTORY: fall COMPARISON: Comparison is made with the prior examination dated 08/20/2024. FINDINGS: Two AP portable views of the chest performed at 8:30 AM are submitted. The lungs are expanded and clear. There is no pleural effusion, pneumothorax, or pulmonary vascular congestion. The heart remains enlarged. There is degenerative disc disease of the spine. XR/XR chest 1V IMPRESSION: Cardiomegaly. No acute cardiopulmonary abnormality. Electronically signed by: Momo Spangler MD 12/05/2024 08:42 AM EDT
--- NOTE | ~2024-12-05 | CT_ITS ---
EXAMINATION: CT HEAD WITHOUT IV CONTRAST HISTORY: fall. TECHNIQUE: Unenhanced helical CT of the head was performed per standard departmental protocol. Coronal and sagittal reformats of the head were also evaluated. One or more of the following techniques was used for dose reduction: Automated exposure control, adjustment of the mA and/or kV according to patient size, use of iterative reconstruction technique. DLP: 798 mGy-cm COMPARISON: Comparison is made with the prior examination dated 12/22/2022. FINDINGS: BRAIN: There is mild prominence of the ventricular system and cortical sulci, consistent with atrophy. Scattered periventricular and subcortical white matter hypodensities are noted which are nonspecific, but often seen in the setting of small vessel ischemic disease. There is no mass effect or midline shift. No intra- or extra-axial fluid collections are identified. SINUSES: The visualized paranasal sinuses are clear. The mastoid air cells and middle ear cavities are well pneumatized. ORBITS: The visualized orbits are unremarkable. BONES/SOFT TISSUES: The extracranial soft tissues are unremarkable. The calvarium is intact. No suspicious lytic or sclerotic lesions. CT/CT head/brain wo IV con IMPRESSION: No acute intracranial abnormality. Electronically signed by: Momo Spangler MD 12/05/2024 08:46 AM EDT
--- NOTE | ~2024-12-05 | CT_ITS ---
EXAMINATION: CT CERVICAL SPINE WITHOUT CONTRAST CLINICAL INFORMATION: Status post fall. COMPARISON: December 22, 2022. TECHNIQUE: Contiguous axial images through the cervical spine using 3 mm collimation with bone and soft tissue algorithm. Sagittal and coronal reformatted images acquired. DLP: 627.[address] examination was performed using dose optimization techniques as appropriate, variously including the following: *Automated exposure control *Adjustment of mA and/or kV according to patient size (this includes techniques or standardized protocols for targeted exams where dose is matched to indication/reason for exam; i.e. extremities or head) *Use of iterative reconstruction technique FINDINGS: Craniocervical junction is intact with normal alignment. Degenerative changes in the periodontal C1 region and anterior arch of C1. Marginal osteophyte formation subchondral cyst formation, decreased intervertebral disc height and endplate sclerosis at C6-7. Marginal osteophyte formation at C4-5 and C5-6 level. Calcifications in the posterior intervertebral disc/posterior longitudinal ligament at C5-6 and C7-T1 and to a lesser extent C3-4. Bilateral facet joint hypertrophy with subchondral cyst formation and sclerosis along the articular surfaces from C2-3 to C6-7. There is a 1 mm anterolisthesis C3-4 and C4-5 likely degenerative in nature. C1 is intact. C2 is intact. C3 is intact. C4 is intact. C5 is intact. C6 is intact. C7 is intact. No gross prevertebral compartment hematoma. Tympanic cavities and mastoid cells are aerated without air-fluid levels. Temporomandibular joints are intact. Calcified plaques in the carotid bulbs and proximal ICAs more pronounced on the right side. CT/CT cervical spine wo IV con IMPRESSION: Multilevel cervical spondylosis without acute fracture or trauma-related listhesis. Fleischner guidelines were followed. Electronically signed by: Aidan Bolaños MD 12/05/2024 08:53 AM EDT
--- OUTSIDE RECORDS SUMMARY | 2024-12-05 07:10 | XMS_ITS ---
Author Name Montero BRITTNEYHomer Address [address] [place] [address] Phone [phone] [facility] Care Team Providers Care Lean Process Deployment Consultant Name Role Phone Homer Montero Unavailable [phone] [facility] Unavailable Reason for Referral Not Available Allergies, [...] Active 2022-07-27 N/A Other problems related to [facility] facilities and other health care Active 2023-09-28 N/A Encounters Encounters Type Facility Date of Service Diagnosis/Co mplaint New patient,40-59min; chronic exacerbation, 2 stable chronic or 1 acute illness add add modifier 95 for video (do not use for phone, instead use 62506-32) [facility] Unspecified atrial fibrillationOther thrombophiliaChronic obstructive pulmonary [...] (do not use for phone, instead use 55327-78) [facility] New patient,40-59min; chronic exacerbation, 2 stable chronic or 1 acute illness add add modifier 95 for video (do not use for phone, instead use 48490-36) [facility] New patient,40-59min; chronic exacerbation, 2 stable chronic or 1 acute illness add add modifier 95 for video (do not use for phone, instead use 39982-85) [facility] [place] New patient,40-59min; chronic exacerbation, 2 stable chronic or 1 acute illness add add modifier 95 for video (do not use for phone, instead use 69501-67) [facility] [place] New patient,40-59min; chronic exacerbation, 2 stable chronic or 1 acute illness add add modifier 95 for video (do not use for phone, instead use 57109-92) [facility] [place] New patient,40-59min; chronic exacerbation, 2 stable chronic or 1 acute illness add add modifier 95 for video (do not use for phone, instead use 66323-05) [facility] [place] New patient,40-59min; chronic exacerbation, 2 stable chronic or 1 acute illness add add modifier 95 for video (do not use for phone, instead use 91843-17) [facility] New patient,40-59min; chronic exacerbation, 2 stable chronic or 1 acute illness add add modifier 95 for video (do not use for phone, instead use 49180-33) [facility] [place] 07[place]/[address] [facility]20[place] History of fallingMyalgia, o ther site No Data Available [facility] [place]18/2022 Unspecified atrial fibrillationOther thrombophiliaChronic obstructive pulmonary disease, unspecifiedUnspecified disorder of circulatory systemChronic pulmonary embolismHeart failure, unspecifiedCardiomyopathy, unspecifiedMajor depressive disorder, recurrent, in full remissionHyperlipidemia, unspecifiedObstructive sleep apnea (adult) (pediatric)History of fallingMyalgia, other siteMorbid (severe) obesity due to excess caloriesInsomnia, unspecifiedSedative, hypnotic or anxiolytic dependence, uncomplicatedPersonal history of nicotine dependence No Data Available [facility] [place] 10[place]14/2022 Other thrombophiliaUnspecifi ed atrial fibrillationChronic obstructive pulmonary disease, unspecifiedUnspecified disorder of circulatory systemChronic pulmonary embolismHeart failure, unspecifiedCardiomyopathy, unspecifiedMajor depressive disorder, recurrent, in full remissionCoagulation defect, unspecifiedHyperlipidemia, unspecifiedObstructive sleep apnea (adult) (pediatric)History of fallingMyalgia, other siteMorbid (severe) obesity due to excess caloriesBody mass index (BMI) 45.0-49.9, adultInsomnia, unspecifiedSedative, hypnotic or anxiolytic dependence, uncomplicated No Data Available [facility]14[place]2022 No Data Available [facility] [facility] [place] No [facility] [place] No Data Available [facility] 09[place]11/2023 Dizziness and giddinessBody mass index (BMI) 40.0-44.9, adult No Data Available [facility] [place] 09/11/2023 No Data Available [facility] [place] No Data Available [facility] 09/11[place]2023 No Data Available [facility] [place] No Data Available [facility] [place] 01/25/2024 [...] (BMI) 40.0-44.9, adultInsomnia, unspecified No Data Available [facility] [place]24 No Data Available [facility] [place]24 No Data Available [facility] [place] [facility] [place] [facility] 01[place] [facility] [facility] 01[place] [facility]2024 Vital Signs Date [...] tive Time Current Smoking Status Former smoker 2024-11-17 0 Sex Male History of Procedures Procedures Service Procedure code Service date Servicing provider Phone# New patient,40-59min; chronic exacerbation, 2 stable chronic or 1 acute illness add add modifier 95 for video (do not use for phone, instead use 32460-12) [id number] 2022-07-27 No Data Available No Data Availa [...] Available No Data Available No Data Available [id number] 2023-09-11 No Data Available No Data Available [...] states he can likely get someone from [facility] warfarin- follows closely with cardio and coumadin [...] to discuss with PCP for medications for fci usehas 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 [facility] [...] states he can likely get someone from [facility] warfarin- follows closely with cardio and coumadin [...] to discuss with PCP for medications for fci use seen by psychiatry has appt next [...] call CBContinue to see PCP. Follow-up with [facility] as needed for any acute or [...] PCP for ongoing monitoring and management Sees waste examiner Dr. Loomis01/25/24: Denies any dyspnea with exertion.Other [...] [facility] PHQ-4=5 (Mild), continues to follow with [...] diet regimen; His goal is to weigh [id number] was sent hydroxyzine recently and worked better than his lorazepamstates his pain is what impedes his sleepingdiscussed use of OTC melatonin 10mg states he will try advised to discuss with PCP for medications for fci use seen by psychiatry has appt next [...] discussedDo you have a Durable Power of Chief Ophthalmic Technician for Healthcare, or Healthcare Proxy Or Guardianship? Yes, preferred proxy but not named POAIf so, Who? Sister CarolineDo you have a written Advance Directive? Has Advance DirectiveOther details of discussion: Patient expressed her desire to be DNI code status, he is planning to discuss with PCPToday's plan: Advised patient to discuss wishes with [id number] : AD or surrogate was documented in the medical record.
--- NOTE | 2024-12-05 07:20 | ED_ITS ---
HPI - General Adult General Chief complaint: Fall Stated complaint: FALL/ TREMORS Time Seen by Provider: 12/05/24 07:07 Source: patient and EMS Mode of arrival: EMS Limitations: no limitations History of Present Illness ED Provider: DR. Argueta HPI narrative: 74-year-old male with past medical history of AFib on warfarin, essential hypertension, COPD, CAD, anxiety, depression, NOEMI on CPAP a, GERD, DM patient normally lives home by himself woke with a walker, has been having on on of lower extremity tremors bilaterally causing him to fall patient fell 4 times this morning of unable to control the tremor and balance himself. Patient declined LOC or trauma to his head. Lower extremity tremors has been going on and off for the past few months. Patient declined drinking alcohol or using drugs at home. Patient is a full code. Related Data Home Medications ?Medication ?Instructions ?Recorded ?Confirmed multivitamin 1 tab PO DAILY 10/22/20 12/05/24 acetaminophen 650 mg 1,300 mg PO BID PRN Pain 08/05/21 12/05/24 tablet,extended release omega-3 fatty acids 500 mg capsule 500 mg PO DAILY 08/05/21 12/05/24 gabapentin 100 mg capsule 100 mg PO MOWESA 09/25/22 12/05/24 duloxetine 20 mg capsule,delayed 40 mg PO DAILY 10/16/22 12/05/24 release cholecalciferol (vitamin D3) 25 50 mcg PO DAILY 12/23/22 12/05/24 mcg (1,000 unit) tablet (Vitamin D3) gabapentin 300 mg capsule 300 mg PO FR 12/23/22 12/05/24 risperidone 1 mg tablet 1 mg PO BEDTIME 01/14/24 12/05/24 bupropion HCl 100 mg tablet 100 mg PO TID 08/21/24 12/05/24 cetirizine 10 mg tablet 10 mg PO BEDTIME 09/25/24 12/05/24 atorvastatin 10 mg tablet 10 mg PO DAILY 12/05/24 12/05/24 digoxin 250 mcg (0.25 mg) tablet 250 mcg PO MOWEFR 12/05/24 12/05/24 warfarin 4 mg tablet 2 mg PO Q48H 12/05/24 12/05/24 warfarin 4 mg tablet 4 mg PO Q48H 05/20/25 05/20/25 Previous Rx's ?Medication ?Instructions ?Recorded warfarin 4 mg tablet 4 mg PO DAILY #90 tabs 09/15/24 carvedilol 6.25 mg tablet 6.25 mg PO BID #180 tabs 11/03/24 furosemide 20 mg tablet 20 mg PO BID #180 tabs 12/04/24 Allergies Allergy/AdvReac Type Severity Reaction Status Date / Time iodine [IODINE] Allergy Intermediate HIVES, Verified 12/05/24 06:21 bloating latex [LATEX] Allergy Intermediate HIVES Verified 12/05/24 06:21 shellfish derived Allergy Intermediate ANAPHYLAXIS Verified 12/05/24 06:21 [SHELLFISH DERIVED] egg Allergy Hives Verified 12/06/24 07:51 lisinopril Allergy Unknown Verified 12/05/24 06:21 Peppers, Green Allergy Hives Verified 12/06/24 07:51 spinach Allergy Hives Verified 12/06/24 07:51 Review of Systems 2 Review of Systems: All other systems are reviewed and are negative Constitutional: Reports as per HPI and Reports no additional constitutional complaints Eyes: Reports as per HPI and Reports no additional eye complaints Reports system reviewed and no additional complaints, except as documented Cardiovascular: Reports as per HPI and Reports no additional cardiovascular complaints Respiratory: Reports as per HPI and Reports no additional respiratory complaints Gastrointestinal: Reports as per HPI and Reports no additional gastrointestinal complaints Genitourinary: Reports no additional female genitourinary complaints Musculoskeletal: Reports no additional musculoskeletal complaints Skin/Breast: Reports system reviewed and no additional complaints, except as docu Psychiatric: Reports no additional psychiatric complaints Endocrine: Reports no additional endocrine complaints Hematologic/Lymphatic: Reports no additional hematologic/lymphatic complaints Allergic/Immunologic: Reports no additional allergic/immunologic complaints Reports system reviewed and no additional complaints, except as documented and Reports Abnormal speech present [facility] Past Medical History Medical History Heart failure with reduced ejection fraction Chest pain, pleuritic Back pain Dyspnea NOEMI on CPAP COPD (chronic obstructive pulmonary disease) CAD (coronary artery disease) HLD (hyperlipidemia) HTN (hypertension) Diabetes Obstructive sleep apnea Morbid obesity Cardiomyopathy Persistent atrial fibrillation Current use of anticoagulant therapy Surgical History History of knee surgery History of ankle surgery Family History Family History Father HTN (hypertension) Diabetes mellitus Cardiac disease Bone cancer Substance use disorder Mother HTN (hypertension) Lung cancer Social History Social History Household Members: None Housing: Apartment Do you presently have visiting nurse or other home services: No Alcohol intake: never Comment: refusing alarms Patient Tobacco Use Status: Former Tobacco user Years Smoked: 30 yrs e-Cigarette/Vaping Use: Never Used Second Hand Smoke Exposure: No Substance Use Type: Crack/Cocaine Advance Directives: No Advance Directives Information Provided: No Do you have a plan to hurt others: No Plan service: No Current occupational status: retired and disabled Cognitive needs: No Hearing needs: No Vision needs: Yes Physical Exam ED Vital Signs: Vital Signs - 24 hr 12/05/24 11:12 12/05/24 14:57 12/05/24 17:46 Temperature 97.8 F 97.6 F Pulse Rate 89 67 90 Respiratory Rate 20 18 18 Blood Pressure 135/79 115/57 L 113/62 Pulse Oximetry 97 96 96 Oxygen Delivery Method Room Air Room Air Room Air 12/05/24 22:33 12/06/24 02:42 12/06/24 06:15 Temperature 97.8 F 98.0 F 97.6 F Pulse Rate 96 78 93 Respiratory Rate 16 15 16 Blood Pressure 121/65 112/54 L 98/64 Pulse Oximetry 96 95 95 Oxygen Delivery Method Room Air Room Air Room Air 12/06/24 07:30 12/06/24 09:40 12/06/24 09:48 Temperature 97.9 F Pulse Rate 104 H 124 H 127 H Respiratory Rate 20 20 Blood Pressure 145/75 H 119/34 L Pulse Oximetry 96 Oxygen Delivery Method Room Air BMI result Body Mass Index 42.6 Vital signs have been reviewed and appear to be correct. Blood pressure elevated. Heart rate normal. Respiratory rate normal. Temperature normal. Oxygen saturation normal. Appearance: Alert. Oriented X3. No acute distress. Head: Normal external exam. Normocephalic. Atraumatic. No Finnegan signs noted. No raccoon eyes noted Eyes: PERRLA. EOMI. Conjunctiva and sclera normal. Eyelids normal. ENT: TM's Normal. Pharynx normal. Uvula midline. Moist mucous membranes. No trismus noted. No drooling noted. No muffled voice noted. Neck: Normal inspection. Neck supple. FROM. No adenopathy. Thyroid Normal. No meningeal signs. No neck mass noted. CVS: Normal heart rate and rhythm. Heart sound normal. No murmurs noted. Pulses normal throughout. Respiratory: No respiratory distress. Painless inspiration. Breath sounds normal. No wheezes/rales/rhonchi noted. Chest nontender. No accessory muscle usage noted or decreased air movement noted. Abdomen: Soft and nontender. Bowel sounds normal in all 4 quadrants. No distention noted. No organomegaly noted. No visible injury noted. Back: No CVA tenderness. Full range of motion noted. Skin: Skin warm and dry. Normal skin color. Normal skin turgor. No rashes/lesions/lacerations noted. Extremities: No lower extremity edema. Extremities exhibit normal range of motion. Extremities nontender. Neuro: Mental status: Normal attention, orientation, memory, and affect. Cranial nerves: Pupils are equal, round and reactive to light, EOMI, visual sood are fall, face is symmetric, facial sensations are normal. Motor examination normal muscle tone, strength to 4 extremities. DTR are +2, planter's are flexor. Sensory exam; normal coordination, no ataxia, gait stable. Cerebellar exam: [id number] and [id number]-[id number] is normal. Extrapyramidal system: No tremors, no rigidity with normal facial expressions. Pronator drift not present NIH Stroke Scale Time: 07:24 Level of Consciousness: Alert Level of Consciousness Questions: Answers both questions correctly Level of Consciousness Commands: Performs both tasks correctly Best Gaze: Normal Visual: No visual loss Facial Palsy: Normal Motor Arm (Right): No drift Motor Arm (Left): No drift Motor Leg (Right): No drift Motor Leg (Left): No drift Limb Ataxia: Absent Sensory: Normal Best Language: No aphasia Dysarthia: Normal Extinction and Inattention: No abnormality Score: 0 Course Reevaluation(s) Reevaluation #1: multiple falls secondary to tremors at home, patient is on Coumadin for AFib which is above recommended therapeutic index, will hold Coumadin for today. Continue with physician observation for placement. Case management and PT input is appreciated. Case discussed with Dr. Villafuerte, no need for hospitalization continue with the current plan of cm and placement. Time: 15:34 Reevaluation #2: Physician observation continued. Patient seen and evaluated by Physical therapy who is recommending short-term rehab. All home medications were restarted this morning. He is on Coreg and digoxin. His digoxin level was checked and found to be subtherapeutic. Heart rates are 100s. Repeat potassium is improved to 3.5, additional oral potassium was given. He is on Lasix b.i.d.. His INR continues to be supratherapeutic today at 7.4. there is no signs of bleeding, no role for reversal at this time. Will continue to hold Coumadin and reassess his INR daily. At this time he is stable for discharge to [facility] where he has been accepted for short-term rehab. He does not require medical hospitalization at this time. Physician observation discontinued at this time. He is to be transported to [place] Time: 10:22 Medications Administered Generic Name Dose Route Start Last Admin Trade Name Freq PRN Reason Stop Dose Admin Atorvastatin Calcium 10 mg 12/06/24 09:00 12/06/24 09:40 Atorvastatin Calcium 10 Mg Tablet PO 10 mg DAILY JACKELINE Administration Bupropion HCl 100 mg 12/06/24 09:00 12/06/24 09:40 Bupropion Hcl 100 Mg Tablet PO 100 mg TID JACKELINE Administration Carvedilol 6.25 mg 12/06/24 09:00 12/06/24 09:40 Carvedilol 6.25 Mg Tablet PO 6.25 mg BID JACKELINE Administration Protocol Digoxin 0.25 mg 12/06/24 09:00 12/06/24 10:12 Digoxin 0.25 Mg Tablet PO 0.25 mg MOWEFR JACKELINE Administration Protocol Duloxetine HCl 40 mg 12/06/24 09:00 12/06/24 09:41 Duloxetine Hcl 20 Mg Capsule.Dr PO 40 mg DAILY JACKELINE Administration Furosemide 20 mg 12/06/24 09:00 12/06/24 09:40 Furosemide 20 Mg Tablet PO 20 mg BID JACKELINE Administration Protocol Gabapentin 100 mg 12/06/24 09:00 12/06/24 10:12 Gabapentin 100 Mg Capsule PO 100 mg MOWESA JACKELINE Administration Multivitamins/Vitamin C 1 tab 12/06/24 09:00 12/06/24 09:41 Multivitamin Tablet PO 1 tab DAILY JACKELINE Administration Vitamin D 50 mcg 12/06/24 09:00 12/06/24 09:39 Cholecalciferol (Vitamin D3) 25 Mcg Tablet PO 50 mcg DAILY JACKELINE Administration Discontinued Medications Generic Name Dose Route Start Last Admin Trade Name Gonzalez PRN Reason Stop Dose Admin Potassium Chloride 10 meq in 100 mls @ 100 mls/hr 12/05/24 08:19 12/05/24 09:52 Potassium Chloride/H20 IV 12/05/24 09:18 Infused ONCE ONE Infusion Potassium Chloride 40 meq 12/05/24 08:19 12/05/24 08:53 Potassium Chloride Packet 20 Meq Packet PO 12/05/24 08:20 40 meq ONCE ONE Administration Potassium Chloride 40 meq 12/06/24 09:44 12/06/24 10:13 Potassium Chloride Er 20 Meq Tab.Er.Prt PO 12/06/24 09:45 40 meq ONCE ONE Administration Medical Decision Making Differential Diagnosis Differential Diagnoses: The differential diagnosis associated with the presentation includes (Coagulopathy, severe anemia, electrolyte derangement, closed head injury, cervical spine injury, pneumonia, pneumothorax, pleural effusion.) Admission/Observation Consideration of admission/observation: Escalation of care including admission/observation considered Lab Data MDM Lab Attestation statement: I reviewed the patient's lab results. 12/05/24 07:29 12/06/24 08:34 Labs: Lab Results 12/05/24 12/05/24 12/06/24 Range/Units 07:29 07:55 08:34 WBC 9.1 (4.8-10.8) X10*3/uL RBC 4.25 L (4.60-5.80) X10*6/uL Hgb 13.3 L (14.0-18.0) g/dl Hct 38.3 L (42.0-52.0) % MCV 90.1 (80.0-98.0) fL MCH 31.3 (27.0-33.0) pg MCHC 34.7 (31.0-36.0) g/dl RDW 12.4 (11.0-16.0) % Plt Count 190 (160-400) X10*3/uL MPV 11.1 (9.4-12.4) fL Immature Gran % (Auto) 0.4 (0.0-0.4) % Neut % (Auto) 82.8 H (45-73) % Lymph % (Auto) 9.1 L (20-40) % Winston % (Auto) 4.7 (2-11) % Eos % (Auto) 2.6 (0-4) % Baso % (Auto) 0.4 (0-2) % Lymph # (Auto) 0.8 L (1.2-4.9) X10*3/uL Winston # (Auto) 0.4 (0.1-1.2) X10*3/uL Eos # (Auto) 0.2 (0.0-0.4) X10*3/uL Baso # (Auto) 0.0 (0.0-0.2) X10*3/uL Abs Immat Gran (auto) 0.04 H (0.00-0.03) X10*3/uL Absolute Neuts (auto) 7.5 (2.0-8.3) x10*3/uL Absolute Nucleated RBC 0.000 (0.0-0.012) X10*3/uL Nucleated RBC % (auto) 0.0 (0.0-0.2) /100WBC PT 51.7 H 85.6 H D (10.9-12.4) SEC INR 4.5 H 7.4 H* D (0.9-1.1) Sodium 139 (135-145) mmol/L Potassium 2.8 L* D 3.5 D (3.3-5.1) mmol/L Chloride 100 (96-108) mmol/L Carbon Dioxide 28 (22-29) mmol/L Anion Gap 14 (12-20) BUN 5 L (9-16) mg/dL Creatinine 0.80 (0.5-1.4) mg/dL Estim Creat Clear Calc 122.3 Estimated GFR > 60 Random Glucose 128 H (60-115) mg/dL Calcium 8.4 (8.4-10.2) mg/dL Total Bilirubin 1.0 (0.0-1.0) mg/dL AST 16 (5-37) U/L ALT < 6 (0-40) U/L Alkaline Phosphatase 71 (39-117) U/L Troponin I High Sens 12.5 (<3.5-35.0) ng/L B-Natriuretic Peptide 21 (<100) pg/mL Total Protein 6.3 L (6.5-8.0) g/dL Albumin 3.6 (3.5-5.0) g/dL Urine Color Yellow Urine Appearance Clear Urine pH 6.5 (5.0-9.0) Ur Specific Chauncey <= 1.005 (1.005-1.025) Urine Protein Negative (Neg-Trace) mg/dL Urine Glucose (UA) Negative (Negative) mg/dL Urine Ketones Negative (Negative) mg/dL Urine Blood Negative (Negative) Urine Nitrite Negative (Negative) Ur Leukocyte Esterase Negative (Negative) Digoxin 0.4 L (0.8-2.0) ng/mL Influenza Type A (PCR) NEGATIVE (Negative) Influenza Type B (PCR) NEGATIVE (Negative) RSV RNA Qual (PCR) NEGATIVE (Negative) SARS-CoV-2 RNA (RT-PCR) NEGATIVE (Negative) Independent Interpretation I performed an independent interpretation of an: Plain X-Ray ( chest: CHF with cardiomegaly.) and CT Scan ( Head/cervical spine: No acute intracranial pathology, no acute cervical spine fracture) Radiology Impression Discussion of test interpretation with radiology: I have reviewed the radiologist's reading. Discharge Plan Discharge Clinical Impression: Tremor, Hypokalemia, Supratherapeutic INR Fall Qualifiers: Encounter type: initial encounter Qualified Code(s): W19.XXXA - Unspecified fall, initial encounter Patient Disposition: Xfer Inpatient Rehab Fac Transfer Details: [place] Care Instructions: Elevated INR (ED), Fall Prevention for Older Adults (ED) Additional Instructions: Your INR was elevated 7.4 - recommend holding Coumadin and monitoring INR daily until INR level is less than 3.5. Monitor for signs of bleeding. follow-up with your doctor. If you develop new or worsening symptoms call 911 or come back to the ER for further evaluation. Prescriptions: No Action omega-3 fatty acids 500 mg capsule 500 mg PO DAILY acetaminophen 650 mg tablet extended release 1,300 mg PO BID PRN (Reason: Pain) warfarin 4 mg tablet 4 mg PO DAILY Qty: 90 3RF Protocol: Dose Management Condition: Wednesday (Week One) Dose/Route: 2 mg Instruction: 0.5 x 4 mg tablets Condition: Wednesday Dose/Route: 4 mg Instruction: 1 x 4 mg tablet Condition: Wednesday Dose/Route: 2 mg Instruction: 0.5 x 4 mg tablets Condition: Wednesday Dose/Route: 4 mg Instruction: 1 x 4 mg tablet Condition: Dose/Route: 2 mg Instruction: 0.5 x 4 mg tablets Condition: Wednesday Dose/Route: 2 mg Instruction: 0.5 x 4 mg tablets Condition: Wednesday Dose/Route: 2 mg Instruction: 0.5 x 4 mg tablets Condition: Wednesday (Week Two) Dose/Route: 2 mg Instruction: 0.5 x 4 mg tablets Condition: Wednesday Dose/Route: 4 mg Instruction: 1 x 4 mg tablet Condition: Wednesday Dose/Route: 2 mg Instruction: 0.5 x 4 mg tablets Condition: Wednesday Dose/Route: 4 mg Instruction: 1 x 4 mg tablet Condition: Dose/Route: 2 mg Instruction: 0.5 x 4 mg tablets Condition: Wednesday Dose/Route: 4 mg Instruction: 1 x 4 mg tablet Condition: Wednesday Dose/Route: 2 mg Instruction: 0.5 x 4 mg tablets Protocol Text: Adjustment Start Date: Wednesday12/01/24 INR Value: 3.6 INR Date: 12/01/24 Recheck Date: 12/15/24 carvedilol 6.25 mg tablet 6.25 mg PO BID Qty: 180 3RF furosemide 20 mg tablet 20 mg PO BID Qty: 180 3RF multivitamin Tablet 1 tab PO DAILY gabapentin 300 mg capsule 300 mg PO FR cholecalciferol (vitamin D3) [Vitamin D3] 25 mcg (1,000 unit) Tablet 50 mcg PO DAILY bupropion HCl 100 mg tablet 100 mg PO TID warfarin 4 mg tablet 2 mg PO Q48H warfarin 4 mg tablet 4 mg PO Q48H atorvastatin 10 mg tablet 10 mg PO DAILY digoxin 250 mcg (0.25 mg) tablet 250 mcg PO MOWEFR gabapentin 100 mg capsule 100 mg PO MOWESA duloxetine 20 mg capsule,delayed release(DR/EC) 40 mg PO DAILY cetirizine 10 mg tablet 10 mg PO BEDTIME risperidone 1 mg tablet 1 mg PO BEDTIME Referrals: [facility] [Outside] Jaylon Carvjaal MD [Primary Care Provider] - Print Language: Palauan
[2024-12-05 07:37] LABS: MANUAL DIFF FLAG NO
[2024-12-05 07:39] LABS: Basophils Percent Auto 0.4 % (0-2); Eosinophils Absolute Auto 0.2 X10*3/uL (0.0-0.4); Eosinophils Percent Auto 2.6 % (0-4); Hematocrit 38.3 % (42.0-52.0); Hemoglobin 13.3 g/dl (14.0-18.0); Imm Gran Abs Auto 0.04 X10*3/uL (0.00-0.03); Imm Gran Pct Auto 0.4 % (0.0-0.4); Lymphocytes Absolute Auto 0.8 X10*3/uL (1.2-4.9); Lymphocytes Percent Auto 9.1 % (20-40); Mean Corpuscular HGB Conc 34.7 g/dl (31.0-36.0); Mean Corpuscular Hemoglobin 31.3 pg (27.0-33.0); Mean Corpuscular Volume 90.1 fL (80.0-98.0); Mean Platelet Volume 11.1 fL (9.4-12.4); Monocytes Absolute Auto 0.4 X10*3/uL (0.1-1.2); Monocytes Percent Auto 4.7 % (2-11); Neutrophils Absolute Auto 7.5 x10*3/uL (2.0-8.3); Neutrophils Percent Auto 82.8 % (45-73); Platelet Count 190 X10*3/uL (160-400); Red Blood Count 4.25 X10*6/uL (4.60-5.80); Red Cell Distribution Width 12.4 % (11.0-16.0); White Blood Count 9.1 X10*3/uL (4.8-10.8)
[2024-12-05 07:44] LABS: INTERNATIONAL NORM RATIO 4.5 (0.9-1.1); Prothrombin Time 51.7 SEC (10.9-12.4)
--- NOTE | 2024-12-05 07:59 | PC.NURSE ---
Pt stated he began to have numbness in his legs and stuttered speech after multiple falls last night. Unknown last well time. Provider to bedside. IV established. Labs and EKG obtained. Pt attempted to use urinal while standing but was unable to do so due to weakness and tremors. Verbal order from provider for straight cath. Over 1000ml of output. Awaiting imaging at this time
[2024-12-05 08:06] LABS: Alanine Aminotransferase < 6 U/L (0-40); Albumin Level 3.6 g/dL (3.5-5.0); Alkaline Phosphatase 71 U/L (39-117); Anion Gap 14 (12-20); Aspartate Amino Transferase 16 U/L (5-37); Blood Urea Nitrogen 5 mg/dL (9-16); Calcium 8.4 mg/dL (8.4-10.2); Carbon Dioxide 28 mmol/L (22-29); Chloride 100 mmol/L (96-108); Creatinine Clr Calc Pharmacy 122.3; Estimated Glomerular Filt Rate > 60; Glucose Random 128 mg/dL (60-115); Potassium 2.8 mmol/L (3.3-5.1); Sodium 139 mmol/L (135-145); Total Protein 6.3 g/dL (6.5-8.0)
[2024-12-05 08:07] LABS: Appearance Urine Clear; Color Urine Yellow; Glucose Urine UA Negative (Negative); Leukocyte Esterase Urine Negative (Negative); Nitrite Urine Negative (Negative); PH 6.5 (5.0-9.0); Specific Gravity - Urine <= 1.005 (1.005-1.025); Urine Blood Negative (Negative); Urine Ketones Negative (Negative); Urine Protein Negative (Neg-Trace)
[2024-12-05 08:09] LABS: Troponin-I High Sensitivity 12.5 ng/L (<3.5-35.0)
[2024-12-05 08:19] LABS: B Type Natriuretic Peptide 21 pg/mL (<100)
[2024-12-05] MEDS: Potassium Chloride/H20 10 MEQ/100 ML PIGGYBACK 100 MEQ IV (08:52)
[2024-12-05] MEDS: Potassium Chloride Packet 20 MEQ PACKET 40 MEQ PO (08:53)
[2024-12-05 08:56] LABS: Influenza A PCR NEGATIVE (Negative); Influenza B PCR NEGATIVE (Negative); Resp Syncy Virus RNA Qual PCR NEGATIVE (Negative); SARS COV2 PCR INHOUSE NEGATIVE (Negative)
--- NOTE | 2024-12-05 08:59 | PC.NURSE ---
plan for pt/cm - patient states he lives alone and has been using two canes to get around at home. medicated per the SEP.
--- NOTE | 2024-12-05 12:19 | MHC.CM.ED ---
Addendum entered by Norma Millard 12/05/24 14:18: [facility] is only facility willing to offer a bed at this time. Patient agreeable. Level 1 and MDS will be completed and sent to [facility] and facility. Original Note: Received case management consult from Dr Argueta. Patient came to the ER due to a fall. Work up essentially negative. Physical therapy eval completed. Short term rehab is recommended. Patient lives alone, ambulates independently at baseline and has a C-pap from [facility] (16cm/l). PCP verified. Copy of HCP verified to be on file. Patient agreeable to STR referral being broadcasted. Patient does not want to go to [facility]. Patient has a history of cocaine abuse listed on his problem list. Patient states he used cocaine in August 2024 with a friend. Also states he hasn't used any drugs in over 14 years prior to that and that he has not used drugs since. Referral broadcasted in [facility]. Continue to monitor for d/c needs.
--- NOTE | 2024-12-05 17:47 | PC.NURSE ---
patient moved to ed bed 6 and placed in hospital bed for comfort. continues to deny any pain. takes medications whole with water per patient. patient was able to stand with two assist to transfer self to bed
--- NOTE | 2024-12-05 20:07 | PC.NURSE ---
Assumed care at 1900. Pt is alert and awake, resting at the bedside. Reports difficulty ambulating and only able to take a few steps around his home but overall being unable to walk. States my legs are numb . Pt has no concerns/complaints at this time. Assistance provided to use the cell phone. Urinal and call montes placed within reach. Monitoring is ongoing.
--- NOTE | 2024-12-05 20:48 | PHA.MEDREC ---
Addendum entered by Ene Ferrari [facility] 12/05/24 21:27: reviewed Original Note: Pharmacy Consult ? Medication Reconciliation Pharmacy has reviewed the medication reconciliation done by nursing. Spoke to patient to confirm med list. Patient states he is no longer taking Farxiga 5mg, Tamsulosin 0.4 mg, and Tizanidine 4 mg. Patient confirmed Digoxin 250 mg Wednesday,Wednesday and Wednesday, Gabapentin 100 mg Mondays,Wednesdays and Saturdays and Gabapentin 300 mg on Fridays, Warfarin is 4 mg alternating with 2 mg daily. patient states he check his INR every week and his dose is 4 mg today, 2 mg tomorrow and then 4 mg the next day and so on (Warfarin 4 mg q48h)(Warfarin 2 mg Q48h).
[2024-12-06] VITALS (7 sets, daily range): BP systolic 98–145; BP diastolic 34–75; PULSE 78–127; RESP 15–20; TEMP -17.7–36.7; O2SAT 95–98
--- NOTE | 2024-12-06 07:42 | PC.NURSE ---
pt is alert and appears to be some what oriented, when first this rn asked the pt where he is he answered [place] but after he said that is his house and that he is at [facility], also was able to report the correct year after a small pause, pt was wet with urine, cleaned up and repositioned to be able to eat his breakfast, pt denies pain but states that he came to the hospital because he was at the doctors office to get a stress test done but got really weak in the legs/wobbly and reports falling down. pt also reported that he found out last week that he has allergy to egg and spinach and peepers, reports having hives that he totally forgot to report that to the previous nurse, so the pt's breakfast rajan was taken away except the sausage. allergy list updated
--- NOTE | 2024-12-06 08:50 | PC.NURSE ---
called [facility] to double check that someone from pharmacy double checked it and this rn was told that pharmacy did go through the med/rec and that it is all set
[2024-12-06 09:00] LABS: Prothrombin Time 85.6 SEC (10.9-12.4)
[2024-12-06 09:04] LABS: Digoxin 0.4 ng/mL (0.8-2.0)
[2024-12-06 09:09] LABS: INTERNATIONAL NORM RATIO 7.4 (0.9-1.1)
[2024-12-06 09:21] LABS: Potassium 3.5 mmol/L (3.3-5.1)
[2024-12-06] MEDS: Cholecalciferol (Vitamin D3) 25 MCG TABLET 50 MCG PO (09:39)
[2024-12-06] MEDS: Furosemide 20 MG TABLET PO (09:40)
[2024-12-06] MEDS: Atorvastatin Calcium 10 MG TABLET PO (09:40)
[2024-12-06] MEDS: carvediloL 6.25 MG TABLET PO (09:40)
[2024-12-06] MEDS: buPROPion HCL 100 MG TABLET PO (09:40)
--- NOTE | 2024-12-06 09:40 | MHC.CM.ED ---
Patient remains in ER. Patient can transfer to [facility] via BLS at 1030am. [facility] booked. Med [facility] with chart. Patient, Sari LEE and Heydi PORTER aware. Continue to monitor for d/c needs.
[2024-12-06] MEDS: DULoxetine HCl 20 MG CAPSULE.DR 40 MG PO (09:41)
[2024-12-06] MEDS: Multivitamin TABLET 1 TAB PO (09:41)
[2024-12-06] MEDS: Gabapentin 100 MG CAPSULE PO (10:12)
[2024-12-06] MEDS: Digoxin 0.25 MG TABLET PO (10:12)
[2024-12-06] MEDS: Potassium Chloride ER 20 MEQ TAB.ER.PRT 40 MEQ PO (10:13)
--- NOTE | 2024-12-06 10:26 | PC.NURSE ---
report given to Ana Cristina grimaldo at [facility]
== END 2024-12-06 11:04 ==
PROVIDERS: Physician Assistant; Emergency Provider Emergency Medicine; PCP Internal Medicine
DX: R25.1 Tremor, unspecified (principal); I10 Essential (primary) hypertension; I25.10 Atherosclerotic heart disease of native coronary artery without angina pectoris; I48.91 Unspecified atrial fibrillation; R51.9 Headache, unspecified; M54.2 Cervicalgia; I45.10 Unspecified right bundle-branch block; R06.02 Shortness of breath; M54.50 Low back pain, unspecified; Z91.81 History of falling; Z03.818 Encounter for observation for suspected exposure to other biological agents ruled out; Z79.899 Other long term (current) drug therapy; Z79.01 Long term (current) use of anticoagulants
CPT/HCPCS: 0241U; 36415; 70450; 71045; 72125; 80053; 80162; 81003; 83880; 84132; 84484; 85025; 85610; 93005; 96365; 97162; 99285; J3480

== ENCOUNTER → 2024-12-05 07:08 | Outpatient (BNV) | payer MEDICARE, MEDICAID, SELFPAY | PROVIDERS: Emergency Provider Emergency Medicine; PCP Internal Medicine; Visit Provider Radiology Diagnostic Radiology | DX: M47.812 Spondylosis without myelopathy or radiculopathy, cervical region (principal); S09.90XA Unspecified injury of head, initial encounter; I51.7 Cardiomegaly | CPT/HCPCS: 70450; 71045 ==

== ENCOUNTER → 2024-12-05 07:32 | Outpatient (BNV) | payer MEDICARE, MEDICAID, SELFPAY | PROVIDERS: Emergency Provider Emergency Medicine; PCP Internal Medicine; Visit Provider Internal Medicine Cardiovascular Disease | DX: I48.91 Unspecified atrial fibrillation (principal); I45.10 Unspecified right bundle-branch block | CPT/HCPCS: 93010 ==

== ENCOUNTER 2024-12-06 18:48 | Emergency (ER) | payer MEDICARE, MEDICAID, SELFPAY ==
[2024-12-06 19:02] VITALS: BP 141/83; PULSE 108; RESP 16; TEMP 36.4; O2SAT 95; BMI 43.1
--- OUTSIDE RECORDS SUMMARY | 2024-12-06 19:37 | XMS_ITS ---
Author Name Montero BRITTNEYHomer Address [address] [place] [address] Phone [phone] [facility] Care Team Providers Care Credit Analyst Name Role Phone Homer Montero Unavailable [phone] [facility] Unavailable Reason for Referral Not Available Allergies, [...] (do not use for phone, instead use 58763-23) [facility]2022 Unspecified atrial fibrillationOther thrombophiliaChronic obstructive pulmonary [...] (do not use for phone, instead use 88875-18) [facility] New patient,40-59min; chronic exacerbation, 2 stable chronic or 1 acute illness add add modifier 95 for video (do not use for phone, instead use 79916-72) [facility] New patient,40-59min; chronic exacerbation, 2 stable chronic or 1 acute illness add add modifier 95 for video (do not use for phone, instead use 71411-56) [facility] 07[place]20[place] New patient,40-59min; chronic exacerbation, 2 stable chronic or 1 acute illness add add modifier 95 for video (do not use for phone, instead use 38677-70) [facility] 07[place]20[place] New patient,40-59min; chronic exacerbation, 2 stable chronic or 1 acute illness add add modifier 95 for video (do not use for phone, instead use 79681-97) [facility] 07[place]20[place] New patient,40-59min; chronic exacerbation, 2 stable chronic or 1 acute illness add add modifier 95 for video (do not use for phone, instead use 20412-99) [facility] ([place] 07[place]20[place] New patient,40-59min; chronic exacerbation, 2 stable chronic or 1 acute illness add add modifier 95 for video (do not use for phone, instead use 33550-90) [facility] 07[place]20[place] New patient,40-59min; chronic exacerbation, 2 stable chronic or 1 acute illness add add modifier 95 for video (do not use for phone, instead use 74381-87) [facility] 07[place]2022 No Data Available [facility]20[place] History of fallingMyalgia, o ther site No Data Available [facility] 08[place]18/2022 Unspecified atrial fibrillationOther thrombophiliaChronic obstructive pulmonary disease, unspecifiedUnspecified disorder of circulatory systemChronic pulmonary embolismHeart failure, unspecifiedCardiomyopathy, unspecifiedMajor depressive disorder, recurrent, in full remissionHyperlipidemia, unspecifiedObstructive sleep apnea (adult) (pediatric)History of fallingMyalgia, other siteMorbid (severe) obesity due to excess caloriesInsomnia, unspecifiedSedative, hypnotic or anxiolytic dependence, uncomplicatedPersonal history of nicotine dependence No Data Available [facility] 10[place]14/2022 Other thrombophiliaUnspecifi ed atrial fibrillationChronic obstructive pulmonary disease, unspecifiedUnspecified disorder of circulatory systemChronic pulmonary embolismHeart failure, unspecifiedCardiomyopathy, unspecifiedMajor depressive disorder, recurrent, in full remissionCoagulation defect, unspecifiedHyperlipidemia, unspecifiedObstructive sleep apnea (adult) (pediatric)History of fallingMyalgia, other siteMorbid (severe) obesity due to excess caloriesBody mass index (BMI) 45.0-49.9, adultInsomnia, unspecifiedSedative, hypnotic or anxiolytic dependence, uncomplicated No Data Available [facility] 10[place]14[place]2022 No Data Available [facility] 10/14/2022 No Data Available [facility] [place]/14[place]2022 No Data Available [facility] [place]/14[place]2022 No Data Available [facility] 09/11/2023 Dizziness and giddinessBody mass index (BMI) 40.0-44.9, adult No Data Available [facility] 09/11/2023 No Data Available [facility] [place]11/2023 No Data Available [facility] 09/11/2023 No Data Available [facility] [place] 09/11/2023 No Data Available [facility] [place] 01/25/2024 Other thrombophiliaUnspecifi ed atrial fibrillationOther problems related to medical facilities and other health careChronic obstructive pulmonary disease, unspecifiedChronic pulmonary embolismUnspecified disorder of circulatory systemCardiomyopathy, unspecifiedHeart failure, unspecifiedMajor depressive disorder, recurrent, in full remissionHyperlipidemia, unspecifiedObstructive sleep apnea (adult) (pediatric)History of fallingMyalgia, other siteMorbid (severe) obesity due to excess caloriesBody mass index (BMI) 40.0-44.9, adultInsomnia, unspecified No Data Available [facility] [place] 01/25/2024 No Data Available [facility] [place] 01/25/2024 No Data Available [facility] [place] 01[place]25/2024 No Data Available [facility]2024 No Data Available [facility] 01[place]25[place]2024 No Data Available [facility]/25[place]2024 No Data Available [facility]25[place]2024 No Data Available [facility] 01/25/2024 Vital Signs [...] Time Current Smoking Status Former smoker 2024-11-17 1 Sex Male History of Procedures Procedures Service Procedure code Service date Servicing provider Phone# New patient,40-59min; chronic exacerbation, 2 stable chronic or 1 acute illness add add modifier 95 for video (do not use for phone, instead use 28842-33) 16313 2022-07-27 No Data Available No Data Availa [...] Available No Data Available No Data Available 23584 2023-09-11 No Data Available No Data Available [...] [facility] follows [facility] with [facility] and [...] modifier 95)Continue to see PCP. [facility] or [...] [facility] follows closely with cardio and [...] discuss with PCP for medications for penitentiary use seen by psychiatry has appt next [...] call CBContinue to see PCP. Follow-up with [facility] as needed for any acute or [...] PCP for ongoing monitoring and management Sees bullard operator Dr. Loomis01/25/24: Denies any dyspnea with exertion.Other [...] states he can likely get [facility] from [facility] 01/25/24: PHQ-4=5 (Mild), continues to follow [...] diet regimen; His goal is to weigh [id number] was sent hydroxyzine recently and worked better than his lorazepamstates his pain is what impedes his sleepingdiscussed use of OTC melatonin 10mg states he will try advised to discuss with PCP for medications for penitentiary use seen by psychiatry has appt next [...] discussedDo you have a Durable Power of Java Lead Engineer for Healthcare, or Healthcare Proxy Or Guardianship? Yes, preferred proxy but not named POAIf so, Who? Sister CarolineDo you have a written Advance Directive? Has Advance DirectiveOther details of discussion: Patient expressed her desire to be DNI code status, he is planning to discuss with PCPToday's plan: Advised patient to discuss wishes with [id number] : AD or surrogate was documented in the medical record.
--- NOTE | 2024-12-06 19:43 | ECG_ITS ---
Test Reason : AMS Blood Pressure : */* mmHG Vent. Rate : 135 BPM Atrial Rate : * BPM P-R Int : * ms QRS Dur : 100 ms QT Int : 338 ms P-R-T Axes : * -33 104 degrees QTcB Int : 507 ms Atrial fibrillation with rapid ventricular response Left axis deviation Possible Anterior infarct , age undetermined Abnormal ECG When compared with ECG of 05-Dec-2024 07:32, No significant change was found Referred By: Dm Moran Electronically Signed By: Campbell Petty
--- NOTE | 2024-12-06 19:44 | ED_ITS ---
HPI - General Adult General Chief complaint: Altered Mental Status Stated complaint: SNF, TACHY, AMS Time Seen by Provider: 12/06/24 19:10 Source: patient and EMS Mode of arrival: EMS History of Present Illness ED Provider: HPI narrative: 74-year-old male with past medical history of AFib on warfarin, essential hypertension, COPD, CAD, anxiety, depression, NOEMI on CPAP a, GERD, DM, was just evaluated in emergency department, had a full workup [facility], when he arrived there they were worried that he is altered, tachycardic, sweaty, on evaluation patient is alert oriented to self, location, situation, he is agitated, he states that he has a short temper and when he was asking questions about his medications he did not receive appropriate answers and so he became agitated and he has always had a hard time controlling his temper. He does have some confusion about the time and has had some requests about being in a voodoo function, but that is the only abnormal information otherwise he is aware of his past medical history he is able to remember some of his medications and he is able to collaborate some of the history that I can see from his recent ER visit. His vital signs were not abnormal he was not significantly tachycardic, and his blood pressure was slightly hypotensive but not significantly Related Data Home Medications ?Medication ?Instructions ?Recorded ?Confirmed multivitamin 1 tab PO DAILY 10/22/20 12/05/24 acetaminophen 650 mg 1,300 mg PO BID PRN Pain 08/05/21 12/05/24 tablet,extended release omega-3 fatty acids 500 mg capsule 500 mg PO DAILY 08/05/21 12/05/24 gabapentin 100 mg capsule 100 mg PO MOWESA 09/25/22 12/05/24 duloxetine 20 mg capsule,delayed 40 mg PO DAILY 10/16/22 12/05/24 release cholecalciferol (vitamin D3) 25 50 mcg PO DAILY 12/23/22 12/05/24 mcg (1,000 unit) tablet (Vitamin D3) gabapentin 300 mg capsule 300 mg PO FR 12/23/22 12/05/24 risperidone 1 mg tablet 1 mg PO BEDTIME 01/14/24 12/05/24 bupropion HCl 100 mg tablet 100 mg PO TID 08/21/24 12/05/24 cetirizine 10 mg tablet 10 mg PO BEDTIME 09/25/24 12/05/24 atorvastatin 10 mg tablet 10 mg PO DAILY 12/05/24 12/05/24 digoxin 250 mcg (0.25 mg) tablet 250 mcg PO MOWEFR 12/05/24 12/05/24 warfarin 4 mg tablet 2 mg PO Q48H 12/05/24 12/05/24 warfarin 4 mg tablet 4 mg PO Q48H 12/05/24 12/05/24 Previous Rx's ?Medication ?Instructions ?Recorded warfarin 4 mg tablet 4 mg PO DAILY #90 tabs 09/15/24 carvedilol 6.25 mg tablet 6.25 mg PO BID #180 tabs 11/03/24 furosemide 20 mg tablet 20 mg PO BID #180 tabs 12/04/24 Allergies Allergy/AdvReac Type Severity Reaction Status Date / Time iodine [IODINE] Allergy Intermediate HIVES, Verified 12/06/24 19:12 bloating latex [LATEX] Allergy Intermediate HIVES Verified 12/06/24 19:12 shellfish derived Allergy Intermediate ANAPHYLAXIS Verified 12/06/24 19:12 [SHELLFISH DERIVED] egg Allergy Hives Verified 12/06/24 19:12 lisinopril Allergy Unknown Verified 12/06/24 19:12 Peppers, Green Allergy Hives Verified 12/06/24 19:12 spinach Allergy Hives Verified 12/06/24 19:12 Review of Systems 2 Constitutional: Constitutional: Reports as per [facility] Past Medical History Medical History Heart failure with reduced ejection fraction Chest pain, pleuritic Back pain Dyspnea NOEMI on CPAP COPD (chronic obstructive pulmonary disease) CAD (coronary artery disease) HLD (hyperlipidemia) HTN (hypertension) Diabetes Obstructive sleep apnea Morbid obesity Cardiomyopathy Persistent atrial fibrillation Current use of anticoagulant therapy Surgical History History of knee surgery History of ankle surgery Family History Family History Father HTN (hypertension) Diabetes mellitus Cardiac disease Bone cancer Substance use disorder Mother HTN (hypertension) Lung cancer Social History Social History Household Members: None Housing: Apartment Do you presently have visiting nurse or other home services: No Alcohol intake: never Comment: refusing alarms Patient Tobacco Use Status: Former Tobacco user Years Smoked: 30 yrs e-Cigarette/Vaping Use: Never Used Second Hand Smoke Exposure: No Substance Use Type: Crack/Cocaine Advance Directives: No Advance Directives Information Provided: Yes Do you have a plan to hurt others: No Plan service: No Current occupational status: retired and disabled Cognitive needs: No Hearing needs: No Vision needs: Yes Physical Exam ED Vital Signs: Vital Signs - 24 hr 12/06/24 19:02 12/06/24 20:49 Temperature 97.5 F Pulse Rate 108 H 60 Respiratory Rate 16 Blood Pressure 141/83 H 124/75 Pulse Oximetry 95 Oxygen Delivery Method Room Air BMI result Body Mass Index 43.1 Const Other: * Gen: ?Patient presented agitated, very short with staff but I believe I was able to verbally deescalate him * HEENT: PERRLA, * CV: RRR, no obvious murmurs appreciated * Resp: ?No wheezing rales rhonchi no stridor moving air well * Abd: ?Bowel sounds are present, no tenderness no rebound no rigidity * MSK: FROM, strength 5/5 all extremities * Skin: Warm, dry, intact, * Neuro: ?Alert and oriented to self, location date and time, has been ambulatory, Medications Administered Discontinued Medications Generic Name Dose Route Start Last Admin Trade Name Freq PRN Reason Stop Dose Admin Carvedilol 6.25 mg 12/06/24 19:55 12/06/24 20:49 Carvedilol 6.25 Mg Tablet PO 12/06/24 19:56 Not Given ONCE ONE Protocol Olanzapine 10 mg 12/06/24 19:23 12/06/24 19:45 Olanzapine 10 Mg Tablet PO 12/06/24 19:24 10 mg ONCE ONE Administration Medical Decision Making Medical Decision Making [facility] Narrative: 194 patient evaluated, I reviewed his workup which included blood work, EKG, CT brain, urinalysis accept for INR being over 7 workup has been reassuring, upon presentation here she is not in AFib with RVR though he does have history of AFib, patient is requesting his for real medication he states that is what he requested in rehab and was not explained to him and he was worried about his blood pressure so he became very agitated and he states that he has a really hard time with his temper since he has a child. Now obtain additional workup ECG, cardiac enzymes basic blood work a urinalysis, he has been noted to be ambulatory, I will offer oral Zyprexa, we will order p.r.n. Zyprexa and just to make sure patient understands he can not leave he lives by himself and will be a high fall risk and has been falling. Nurse that is taking care of the [facility] and they state that patient actually requested to come here he is told him that he is not feeling well and he want to come back to the ER. There was not so much concerned about altered mental status. And patient did get a dose of the carvedilol in p.m. but will repeat his dose as his ecg revealed Afib with Rvr 20:50 actually patient's blood pressure and heart rate is significantly improved, heart rate in the 60s I am going to hold off the carvedilol who is probably agitated and so now he is feeling better and vital signs improved and he is going to be discharged back to the facility his workup has been reassuring Differential Diagnosis AFib with RVR, ACS, sundowning, stroke, TIA, dehydration, UTI Admission/Observation Consideration of admission/observation: Escalation of care including admission/observation considered Have considered that patient may need to be admitted for AFib with RVR Lab Data [facility] Lab Attestation statement: I reviewed the patient's lab results. 12/06/24 20:08 12/06/24 20:08 Labs: Lab Results 12/06/24 12/06/24 Range/Units 19:45 20:08 WBC 10.0 (4.8-10.8) X10*3/uL RBC 4.58 L (4.60-5.80) X10*6/uL Hgb 14.2 (14.0-18.0) g/dl Hct 40.4 L (42.0-52.0) % MCV 88.2 (80.0-98.0) fL MCH 31.0 (27.0-33.0) pg MCHC 35.1 (31.0-36.0) g/dl RDW 12.4 (11.0-16.0) % Plt Count 235 (160-400) X10*3/uL MPV 11.3 (9.4-12.4) fL Immature Gran % (Auto) 0.4 (0.0-0.4) % Neut % (Auto) 78.4 H (45-73) % Lymph % (Auto) 14.8 L (20-40) % [place] % (Auto) 4.7 (2-11) % Eos % (Auto) 1.3 (0-4) % Baso % (Auto) 0.4 (0-2) % Lymph # (Auto) 1.5 (1.2-4.9) X10*3/uL [place] # (Auto) 0.5 (0.1-1.2) X10*3/uL Eos # (Auto) 0.1 (0.0-0.4) X10*3/uL Baso # (Auto) 0.0 (0.0-0.2) X10*3/uL Abs Immat Gran (auto) 0.04 H (0.00-0.03) X10*3/uL Absolute Neuts (auto) 7.9 (2.0-8.3) x10*3/uL Absolute Nucleated RBC 0.000 (0.0-0.012) X10*3/uL Nucleated RBC % (auto) 0.0 (0.0-0.2) /100WBC Sodium 140 (135-145) mmol/L Potassium 3.7 (3.3-5.1) mmol/L Chloride 102 (96-108) mmol/L Carbon Dioxide 26 (22-29) mmol/L Anion Gap 16 (12-20) BUN 9 (9-16) mg/dL Creatinine 0.86 (0.5-1.4) mg/dL Estim Creat Clear Calc 114.4 Estimated GFR > 60 Random Glucose 157 H (60-115) mg/dL Calcium 9.1 D (8.4-10.2) mg/dL Troponin I High Sens 16.5 (<3.5-35.0) ng/L Urine Color Yellow Urine Appearance Clear Urine pH 8.0 (5.0-9.0) Ur Specific [place] 1.010 (1.005-1.025) Urine Protein Negative (Neg-Trace) mg/dL Urine Glucose (UA) Negative (Negative) mg/dL Urine Ketones Negative (Negative) mg/dL Urine Blood Negative (Negative) Urine Nitrite Negative (Negative) Ur Leukocyte Esterase Negative (Negative) Independent Interpretation I performed an independent interpretation of an: EKG (135 Afib with RvR, no changes to suspect ACS) Discharge Plan Discharge Clinical Impression: Tremor, Anxiety, generalized, A-fib Patient Disposition: [facility] Additional Instructions: Patient does his history of atrial fibrillation with rapid response, continued taking providing his medications on a regular basis, his vital signs have been reassuring, he had urinalysis blood work cardiac enzymes EKG I did give him Zyprexa as he was very agitated, he may have some owning but they did not really appreciate significant confusion throughout his stay and prior to him going to rehab he has had significant workup which included imaging with a head amongst others and he did not have any evidence for stroke or bleed etc. he definitely has a short temper and he admits to that himself. I found that he is able to be verbally deescalated. Remember that his INR was elevated to 7.4 and his warfarin needs to be held until it comes down to 3.5 Prescriptions: No Action omega-3 fatty acids 500 mg capsule 500 mg PO DAILY acetaminophen 650 mg tablet extended release 1,300 mg PO BID PRN (Reason: Pain) warfarin 4 mg tablet 4 mg PO DAILY Qty: 90 3RF Protocol: Dose Management Condition: Wednesday (Week One) Dose/Route: 2 mg Instruction: 0.5 x 4 mg tablets Condition: Wednesday Dose/Route: 4 mg Instruction: 1 x 4 mg tablet Condition: Wednesday Dose/Route: 2 mg Instruction: 0.5 x 4 mg tablets Condition: Wednesday Dose/Route: 4 mg Instruction: 1 x 4 mg tablet Condition: Dose/Route: 2 mg Instruction: 0.5 x 4 mg tablets Condition: Wednesday Dose/Route: 2 mg Instruction: 0.5 x 4 mg tablets Condition: Wednesday Dose/Route: 2 mg Instruction: 0.5 x 4 mg tablets Condition: Wednesday (Week Two) Dose/Route: 2 mg Instruction: 0.5 x 4 mg tablets Condition: Wednesday Dose/Route: 4 mg Instruction: 1 x 4 mg tablet Condition: Wednesday Dose/Route: 2 mg Instruction: 0.5 x 4 mg tablets Condition: Wednesday Dose/Route: 4 mg Instruction: 1 x 4 mg tablet Condition: Dose/Route: 2 mg Instruction: 0.5 x 4 mg tablets Condition: Wednesday Dose/Route: 4 mg Instruction: 1 x 4 mg tablet Condition: Wednesday Dose/Route: 2 mg Instruction: 0.5 x 4 mg tablets Protocol Text: Adjustment Start Date: Wednesday12/01/24 INR Value: 3.6 INR Date: 12/01/24 Recheck Date: 12/15/24 carvedilol 6.25 mg tablet 6.25 mg PO BID Qty: 180 3RF furosemide 20 mg tablet 20 mg PO BID Qty: 180 3RF multivitamin Tablet 1 tab PO DAILY gabapentin 300 mg capsule 300 mg PO FR cholecalciferol (vitamin D3) [Vitamin D3] 25 mcg (1,000 unit) Tablet 50 mcg PO DAILY bupropion HCl 100 mg tablet 100 mg PO TID warfarin 4 mg tablet 2 mg PO Q48H warfarin 4 mg tablet 4 mg PO Q48H atorvastatin 10 mg tablet 10 mg PO DAILY digoxin 250 mcg (0.25 mg) tablet 250 mcg PO MOWEFR gabapentin 100 mg capsule 100 mg PO MOWESA duloxetine 20 mg capsule,delayed release(DR/EC) 40 mg PO DAILY cetirizine 10 mg tablet 10 mg PO BEDTIME risperidone 1 mg tablet 1 mg PO BEDTIME Print Language: Sami
[2024-12-06] MEDS: OLANZapine 10 MG TABLET PO (19:45)
--- NOTE | 2024-12-06 19:48 | PC.NURSE ---
Spoke with floor RN, she notes that pt was sent out as he stated he wasnt feeling well and said he wanted to be seen. She notes concern for increased confusion as well. She noted he usualy can answer questions appropriately despite pt being only admitted to unit 12/06 so TW is underue of how they obtain a baseline. RNbelieved initial admit date was despite paperwork indicating initial admission date of 12/06. She state he was really restless, thought he was getting ready to go to a democrat, unsure of what he wanted to do couldn't describe what he wanted.
[2024-12-06 19:53] LABS: Appearance Urine Clear; Color Urine Yellow; Glucose Urine UA Negative (Negative); Leukocyte Esterase Urine Negative (Negative); Nitrite Urine Negative (Negative); Urine Blood Negative (Negative); Urine Ketones Negative (Negative); Urine Protein Negative (Neg-Trace)
[2024-12-06 20:12] LABS: MANUAL DIFF FLAG NO
[2024-12-06 20:21] LABS: Basophils Percent Auto 0.4 % (0-2); Eosinophils Absolute Auto 0.1 X10*3/uL (0.0-0.4); Eosinophils Percent Auto 1.3 % (0-4); Hematocrit 40.4 % (42.0-52.0); Hemoglobin 14.2 g/dl (14.0-18.0); Imm Gran Abs Auto 0.04 X10*3/uL (0.00-0.03); Imm Gran Pct Auto 0.4 % (0.0-0.4); Lymphocytes Absolute Auto 1.5 X10*3/uL (1.2-4.9); Lymphocytes Percent Auto 14.8 % (20-40); Mean Corpuscular HGB Conc 35.1 g/dl (31.0-36.0); Mean Corpuscular Volume 88.2 fL (80.0-98.0); Mean Platelet Volume 11.3 fL (9.4-12.4); Monocytes Absolute Auto 0.5 X10*3/uL (0.1-1.2); Monocytes Percent Auto 4.7 % (2-11); Neutrophils Absolute Auto 7.9 x10*3/uL (2.0-8.3); Neutrophils Percent Auto 78.4 % (45-73); Platelet Count 235 X10*3/uL (160-400); Red Blood Count 4.58 X10*6/uL (4.60-5.80); Red Cell Distribution Width 12.4 % (11.0-16.0)
[2024-12-06 20:29] LABS: Anion Gap 16 (12-20); Blood Urea Nitrogen 9 mg/dL (9-16); Calcium 9.1 mg/dL (8.4-10.2); Carbon Dioxide 26 mmol/L (22-29); Chloride 102 mmol/L (96-108); Creatinine Clr Calc Pharmacy 114.4; Estimated Glomerular Filt Rate > 60; Glucose Random 157 mg/dL (60-115); Potassium 3.7 mmol/L (3.3-5.1); Sodium 140 mmol/L (135-145)
[2024-12-06 20:37] LABS: Troponin-I High Sensitivity 16.5 ng/L (<3.5-35.0)
[2024-12-06 20:49] VITALS: BP 124/75; PULSE 60
[2024-12-06 22:12] VITALS: BP 142/70; PULSE 100; RESP 20; TEMP 36.6; O2SAT 96
[2024-12-06 22:25] VITALS: BP 141/83; PULSE 108; RESP 18; TEMP 36.4; O2SAT 95
== END 2024-12-06 22:26 | disposition skilled nursing facility (03) ==
PROVIDERS: Emergency Provider Emergency Medicine; PCP Internal Medicine
DX: R25.1 Tremor, unspecified (principal); R00.0 Tachycardia, unspecified; F41.9 Anxiety disorder, unspecified; R41.82 Altered mental status, unspecified; I48.91 Unspecified atrial fibrillation; I25.10 Atherosclerotic heart disease of native coronary artery without angina pectoris; Z79.01 Long term (current) use of anticoagulants; Z79.899 Other long term (current) drug therapy
CPT/HCPCS: 36415; 80048; 81003; 84484; 85025; 93005; 99283; 99285

== ENCOUNTER → 2024-12-06 19:43 | Outpatient (BNV) | payer MEDICARE, MEDICAID, SELFPAY | PROVIDERS: Emergency Provider Emergency Medicine; PCP Internal Medicine; Visit Provider Internal Medicine Cardiovascular Disease | DX: I48.91 Unspecified atrial fibrillation (principal) | CPT/HCPCS: 93010 ==

== ENCOUNTER 2025-03-22 06:50 | Outpatient (AMB) | payer MEDICARE, MEDICAID, SELFPAY ==
--- OUTSIDE RECORDS SUMMARY | 2025-03-22 06:56 | XMS_ITS ---
Author Name Montero BRITTNEYHomer Address [address] [place] [address] Phone [phone] [facility] Care Team Providers Care Lab Head Name Role Phone Homer Montero Unavailable [phone] [facility] Unavailable Reason for Referral Not [...] List Problem Status Onset Date Resolved Date Synopsis NOEMI (obstructive sleep apnea) Active 2022-07-27 N/A has CPAP and uses each night HLD (hyperlipidemia) Active 2022-07-27 N/A pt i s taking atorvastatin as orderedlow fat/chol diet labs and meds per PCP, cardio AfibHypercoagulability due t o atrial fibrillation Active 2022-07-27 N/A pt is taking coumadin as ordered follows with cardio and coumadin clinic as instructedmindful of dietfall and safety precautions no chest pain or palpitations continue to monitor Vascular diseaseChronic pulmonary embolism Active 2022-07-27 N/A Other pulmona ry embolism without acute cor pulmonaleChronic pulmonary embolismtaking warfarin as ordered labs and plan of care per PCP, cardio, pulm as indicated continue to monitor Coagulation defectHypercoagulability due to atrial fibrillation Active 2022-07-27 N/A taking wa rfarin- follows closely with cardio and coumadin clinicaware of fall/safety precautionsmindful of diet continue to monitor History of fall Active 2022-07-30 N/A fall and safety precautions Dizzy spells Resolved 2023-09-11 2024-01-25 -Discussed t o change positions slowly -Discussed that Farxiga can make you dizzy and lightheaded, can take this in the evening-Continue proper fluid intake-Can call CB back with any other questions or concerns Benzodiazepine dependence Resolved 2022-08-18 2024-01-25 has been on lorazepam for 5 years has cut back form 3 pills to 1.5 pills daily states he would like to titrate down further, advised to discuss with psychiatry to slowly taper off Insomnia Active 2022-08-18 N/A 2022- was sent hydroxyzine recently and worked better than his lorazepamstates his pain is what impedes his sleepingdiscussed use of OTC melatonin 10mg states he will try advised to discuss with PCP for medications for long term acute care registered nurse use seen by psychiatry has appt next month aware to get running script for vistaril from pcp or psychiatry for running script01/25/24: He reports completely weaning off hydroxizine and lorazepam; He reports sleeping well at this time. Morbid obesity Active 2022-07-30 N/A BMI 43.80l ow carb/sugar/fat/portion controlled dietexercise as tolerated 01/25/24: He has lost approx 50lb in the last year and he continues to follow a health diet regimen; His goal is to weigh 250lb Musculoskeletal pain Active 2022-07-30 N/A pt r eports medications have surprisingly been effective- insurance covered all except for a minimal co-pay for the diclofenac he says- pt to continue plan of care- conservative measures- follow up with PCPx: s/p fall- mechanical fall- slipped on water- June- not admitted - treated for deep tissue injury to right side spine he says - sent home with pain meds-will call in flexeril, voltaren, Vistaril and Tylenol arthritis to address pain, restlessness- explained OTC meds may not be covered- plan is to f/u Wednesday unless pt calls in prior 01/25/24: Reports left leg pain due to venous stasis/swelling MDD (major depressive disorder), recurrent, in full remission Active 2022-07-27 N/A pt is taking bup ropion and sertraline with report of effectiveness- reports [...] states he can likely get someone from [facility] 01/25/24: PHQ-4=5 (Mild), continues to follow with psychologist. He reports feeling lonely but he has good neighbors that interacts with him; He is not interested in day centers at this time. CHF (congestive heart failure)Cardiomyopathy Active 2022-07-27 N/A pt is mae ing digoxin, carvedilol, and valsartan as ordered reports had echo 4-5 mos ago- unsure of results - gets tested annually EKG about 2 mos ago per medical record: LVEF percentage: 18 %01/25/24: Reports BLE leg swelling, reports right leg has improved, but L leg continues to have swelling below knees. Instructed to take 20mg add. lasix for 3 days; Patient agreed. Denies any dyspnea. COPD (chronic obstructive pulmonary disease) Active 2022-07-27 N/A no maintenanc e or plan of care in place- pt denies any resp issues to follow up with PCP for ongoing monitoring and management Sees government affairs director Dr. Loomis01/25/24: Denies any dyspnea with exertion. Other problems related to medical facilities and other health care Active 2023-09-28 N/A When member to c all: 1. If bp is elevated sbp>150; dbp>90 or symptomatic-h/a, dizziness, cp, sob. 2. if there is a fall 3. if BS >300 or BS<90 or symptomatic; i.e., dizzy, off balance , shaky, general weakness. 4. if UTI symptoms arise-urinary frequency, dysuria, low abd pain. 5. if pain in knees increases/ or joint pain increased Please remember [facility]. Follow[facility]up with [facility] as needed for any acute or disease education needs that may arise 08/02.HEART FAILURE CONTINGENCY PLANMember to call for the following symptoms: Edema/ Exertional dyspnea/ Orthopnea/ Weight gain or loss/ WheezingPlanned intervention: Increase furosemide (Lasix) to 60 mg for 3-5 days BID or TID/ Elevate legs/ Take medication every single day Encounters Encounters Type Facility Date of Service Diagnosis/Co mplaint New patient,40-59min; chronic exacerbation, 2 stable chronic or 1 acute illness add add modifier 95 for video (do not use for phone, instead use 25962-39) [facility] Unspecified atrial fibrillationOther thrombophiliaChronic obstructive [...] (do not use for phone, instead use 18535-71) [facility] New patient,40-59min; chronic exacerbation, 2 stable chronic or 1 acute illness add add modifier 95 for video (do not use for phone, instead use 38765-28) [facility] New patient,40-59min; chronic exacerbation, 2 stable chronic or 1 acute illness add add modifier 95 for video (do not use for phone, instead use 58469-76) [facility] New patient,40-59min; chronic exacerbation, 2 stable chronic or 1 acute illness add add modifier 95 for video (do not use for phone, instead use 37726-13) [facility] New patient,40-59min; chronic exacerbation, 2 stable chronic or 1 acute illness add add modifier 95 for video (do not use for phone, instead use 77710-70) [facility] New patient,40-59min; chronic exacerbation, 2 stable chronic or 1 acute illness add add modifier 95 for video (do not use for phone, instead use 23273-79) [facility] [place] New patient,40-59min; chronic exacerbation, 2 stable chronic or 1 acute illness add add modifier 95 for video (do not use for phone, instead use 77406-06) [facility] [place]20[place] New patient,40-59min; chronic exacerbation, 2 stable chronic or 1 acute illness add add modifier 95 for video (do not use for phone, instead use 59809-78) [facility] 07[place]2022 No Data Available [facility] [place]/2022 History of fallingMyalgia, o ther site No Data Available [facility] [place] 08/18/2022 Unspecified atrial fibrillationOther thrombophiliaChronic obstructive pulmonary disease, unspecifiedUnspecified disorder of circulatory systemChronic pulmonary embolismHeart failure, unspecifiedCardiomyopathy, unspecifiedMajor depressive disorder, recurrent, in full remissionHyperlipidemia, unspecifiedObstructive sleep apnea (adult) (pediatric)History of fallingMyalgia, other siteMorbid (severe) obesity due to excess caloriesInsomnia, unspecifiedSedative, hypnotic or anxiolytic dependence, uncomplicatedPersonal history of nicotine dependence No Data Available [facility] ([place] 10[place]14/2022 Other thrombophiliaUnspecifi ed atrial fibrillationChronic obstructive pulmonary disease, unspecifiedUnspecified disorder of circulatory systemChronic pulmonary embolismHeart failure, unspecifiedCardiomyopathy, unspecifiedMajor depressive disorder, recurrent, in full remissionCoagulation defect, unspecifiedHyperlipidemia, unspecifiedObstructive sleep apnea (adult) (pediatric)History of fallingMyalgia, other siteMorbid (severe) obesity due to excess caloriesBody mass index (BMI) 45.0-49.9, adultInsomnia, unspecifiedSedative, hypnotic or anxiolytic dependence, uncomplicated No Data Available [facility]2022 No Data Available [facility] No Data Available [facility] No Data Available [facility] No Data Available [facility]2023 Dizziness and giddinessBody mass index (BMI) 40.0-44.9, adult No Data Available [facility]2023 No Data Available [facility]23 No Data Available [facility] No Data Available [facility]23 No Data Available [facility] 01/25/2024 Other thrombophiliaUnspecifi ed atrial fibrillationOther problems related to medical facilities and other health careChronic obstructive pulmonary disease, unspecifiedChronic pulmonary embolismUnspecified disorder of circulatory systemCardiomyopathy, unspecifiedHeart failure, unspecifiedMajor depressive disorder, recurrent, in full remissionHyperlipidemia, unspecifiedObstructive sleep apnea (adult) (pediatric)History of fallingMyalgia, other siteMorbid (severe) obesity due to excess caloriesBody mass index (BMI) 40.0-44.9, adultInsomnia, unspecified No Data Available [facility]24 No Data Available [facility] No Data Available [facility]24 No Data Available [facility]2024 No Data Available [facility] No Data Available [facility]2024 No Data Available [facility] No Data Available [facility] 01/[place]/2024 Vital Signs Date of [...] tive Time Current Smoking Status Former smoker 4 Sex Male History of Procedures Procedures Service Procedure code Service date Servicing provider Phone# New patient,40-59min; chronic exacerbation, 2 stable chronic or 1 acute illness add add modifier 95 for video (do not use for phone, instead use [id number]) 38234 2022-07-27 No Data Available No Data Availa [...] Available No Data Available No Data Available 2023-09-11 No Data Available No Data Available Medication List Documented (1159F) 1159F 2023-09-11 No Data Available No Data Quita ilable SBP < 130 (3074F) 3074F 2023-09-11 No Data Available No Data Available DBP <80 (3078F) 3078F 2023-09-11 No Data Available No Data Available BMI obtained (3008F) 3008F 2023-09-11 No Data Availab le No Data Available No Data Available [id number] 2024-01-25 No Data Available No Data Available [...] Available Advance care planning discussed and documented advance care plan or surrogate decision-maker was [...] modifier 95Continue to see PCP. Follow-up with [place] as [...] to /u Wednesday unless pt calls in priorBMI 46low [...] /u Wednesday unless pt calls in prior 2022-08-18 [...] states he can likely get someone from [facility] warfarin- follows closely with cardio [...] states he can likely get someone from [facility] warfarin- follows closely with cardio [...] PCPhx: s/p fall- mechanical fall- slipped on - June- not admitted - treated for deep [...] to discuss with PCP for medications for long term acute care registered nurse use seen by psychiatry has appt next [...] <80 (3078F)Advance care planning discussed and documented advance care plan or surrogate decision-maker was [...] call CBContinue to see PCP. Follow-up with [facility] as needed for any acute or disease [...] PCP for ongoing monitoring and management Sees government affairs director Dr. Loomis01/25/24: Denies any dyspnea with exertion.Other [...] states he can likely get someone from [facility] 01/25/24: PHQ-4=5 (Mild), continues to follow with [...] f/u Wednesday unless pt calls in prior 01/25/24: Reports left leg pain due to venous stasis/swellingBMI 43.80low carb/sugar/fat/portion controlled dietexercise as tolerated 01/25/24: He has lost approx 50lb in the last year and he continues to follow a health diet regimen; His goal is to weigh [id number] was sent hydroxyzine recently and worked better than his lorazepamstates his pain is what impedes his sleepingdiscussed use of OTC melatonin 10mg states he will try advised to discuss with PCP for medications for long term acute care registered nurse use seen by psychiatry has appt next [...] Health Concerns Date Concern 2024-01-25 Visit completed roney zazueta AUDIO only Patient/Guardian agreed to visit via telehealth. Today, patient has chief complaint of: follow up care and comprehensive review.Reviewed Allergies, Medications, Active Medical conditions, past medical/surgical history, Social history. 2024-01-25 Most recent hospital stay(s) or ER visit(s) and precipitating factors: Denies 2024-01-25 Open HEDIS Measure r yanely: Reviewed 2024-01-25 Advance Care Plan Co nversationDate of Conversation: 01/25/2024Life Limiting Diagnosis: Diagnosis:Currently on Hospice NoCode Status: YES CPR: Attempt ResuscitationGoals of Care: Curative: Attempt to sustain life by all medically effective meansNutrition goals: No decision made about nutrition today; not discussedDo you have a Durable Power of Relationship Management Lead for Healthcare, or Healthcare Proxy Or Guardianship? Yes, preferred proxy but not named KRISTINEf so, Who? Sister Lorne you have a written Advance Directive? Has Advance DirectiveOther details of discussion: Patient expressed her desire to be DNI code status, he is planning to discuss with PCPToday's plan: Advised patient to discuss wishes with [id number] : AD or surrogate was documented in the medical record.
--- OUTSIDE RECORDS SUMMARY | 2025-03-22 06:56 | XMS_ITS | Patient Health Record ---
Author Organization [facility] Address [address] [place] [address] Care Team Providers Care Commercial Engineer Name Role Phone Wei MARTINEZ, [facility] Primary Care Provider Momo Leon [phone] Allergies Allergen (clinical drug ingredient) Drug/Non Drug Allergy documented on EMR Reaction Allergy Type Onset Date Status Latex Gloves Unknown Drug Allergy Acti ve Iodine Unknown Drug Allergy Active Reason For Referral No Information Medications Medication SIG (Take, Route, Frequency, Duration) Notes Start Date End Date Status Simvastatin 20MG Act aneesh Carvedilol 6.25MG Ac tive Citalopram & Diet Manage Prod 20MG Active Zolpidem Tartrate 10MG Active Sertraline HCl 100MG Active Furosemide 20MG Acti ve Lisinopril 40MG Acti ve Omeprazole 20MG Acti ve Plan Of Treatment No Information Insurance Providers Payer Name Payer Address Payer Phone Subscriber Number Group Number Insured Name Patient Relationship to Insured Coverage Start Date Coverage End Date [place] [address] [place] [address] [phone] [id number] WEI PULLIAM Self - patient is the insured [employer] [address] [address] [place] [address] [phone] [id number] WEI PULLIAM Self - patient is the insured
--- OUTSIDE RECORDS SUMMARY | 2025-03-22 06:56 | XMS_ITS | Encounter Summary ---
Author Organization [facility] Address [address] [place] [address] Phone Care Team Providers Care Test Analyst Name Role Phone Jaylon Carvajal MD Primary Care Provider [phone] Encounter Details Date Type Department Care Team (Late st Contact Info) Description 09/13/2018 Transcribe Orders [facility] Specimen Processing [address] [place] [address] [phone] Joo Oswald MD [address] [place] [address], [address] [place] [address] [email or web address] Atrial fibrillation, unspecified type (Primary Dx) Social History Tobacco Use Types Packs/Day Years Used Date Smoking Tobacco: Never Assessed Sex and Gender Information Value Date Recorded Sex Assigned at Not on file Legal Sex Male 7:57 AM EST Gender Identity Not on file Sexual Orientation Not on file documented as of this encounter Plan of Treatment Not on file documented as of this encounter Results * (ABNORMAL) PT-INR (09/13/2018 5:50 AM EST) PT 30.5(H) 10.2 - 12.9 sec [facility] INR 2.7(H) 0.9 - 1.1 [facility] Comment:Therapeutic range fo r oral Vitamin K antagonists: 2.0-3.5 Blood 09/13/2018 5:50 AM EST 09/13/2018 7:43 AM EST us Joo Oswald MD LAB BLOOD ORDERABLES Final Resul t [address] [address] documented in this encounter Visit Diagnoses Diagnosis Atrial fibrillation, unspecified type- Primary documented in this encounter Care Teams Test Analyst Relationship Specialty Start Date End Date Jaylon Carvajal MD [address] [facility] [place] [address] PCP - General Internal Medicine 09/10/18 documented as of this encounter Additional Source Comments The information contained in this document represents components of the legal health record. It is not the complete legal health record.[facility]
--- OUTSIDE RECORDS SUMMARY | 2025-03-22 06:56 | XMS_ITS | Encounter Summary ---
Author Organization [facility] Address [address] [place] [address] Phone Care Team Providers Care Life Science Taxonomist Name Role Phone Jaylon Carvajal MD Primary Care Provider [phone] Encounter Details Date Type Department Care Team (Late st Contact Info) Description 09/10/2018 Transcribe Orders [facility] Specimen Processing [address] [place] [address] [phone] Joo Oswald MD [address] [place] [address] [address] [place] [address] [email or web address] Atrial fibrillation, unspecified type (Primary Dx) Social [...] of this encounter Results * (ABNORMAL) PT-INR (09/10/2018 6:23 AM EST) PT 33.2(H) 10.2 - 12.9 sec [facility] INR 2.9(H) 0.9 - 1.1 [facility] Comment:Therapeutic range fo r oral Vitamin K antagonists: 2.0-3.5 Blood 09/10/2018 6:23 AM EST 09/10/2018 8:24 AM EST us Joo Oswald MD LAB BLOOD ORDERABLES Final Resul t [facility] [address] [place] [address] documented in this encounter Visit Diagnoses Diagnosis Atrial fibrillation, unspecified type- Primary documented in this encounter Care Teams Life Science Taxonomist Relationship Specialty Start Date End Date Jaylon Carvajal MD [address] [facility] [place] [address] PCP - General Internal Medicine 09/10/18 documented as of this encounter Additional Source Comments The information contained in this document represents components of the legal health record. It is not the complete legal health record.[facility]
--- OUTSIDE RECORDS SUMMARY | 2025-03-22 06:56 | XMS_ITS | Clinical Summary ---
Author Organization [facility] Address [address] [address] Phone Care Team Providers Care Setter Induction Heating Equipment Name Role Phone Jaylon Carvajal MD Primary Care Provider [phone] Social History Tobacco Use Types Packs/Day Years Used Date Smoking Tobacco: Never Assessed Education Answer Date Recorded Are you interested in more education? Not on jose alberto e 11/13/2022 Are you concerned about learning? Not on file 11/13/2022 No 11/13/2022 No 11/13/2022 Digital Access Answer Date Recorded No 12/15/2022 No 12/15/2022 No 12/15/2022 Reliable internet access at home? Not on file 12/15/2022 Device with a working camera? Not on file Sex and Gender Information Value Date Recorded Sex Assigned at Not on file Legal Sex Male 7:57 AM EST Gender Identity Not on file Sexual Orientation Not on file Plan of Treatment Health Maintenance Due Date Last Done Comments LIPID PANEL 1952 DEPRESSION SCREENING 1964 HEPATITIS C SCREENING 1970 ZOSTER VACCINES (1 of 2) 2002 Adult Td,Tdap Booster 08/10/2013 08/10/2003 COVID-19 VACCINE (2 - 2023-2 5 season) 2024 06/03/2021 RSV VACCINE (1 - 1-dose 75+ series) 2027 PNEUMOCOCCAL VACCINES (50+ years) Completed 05/09/2021, 05/03/2020, 09/06/2018 COLORECTAL CANCER SCREENING Completed HEPATITIS A VACCINES Aged Out No long er eligible based on patient's age to complete this topic HIB VACCINES Aged Out No longer eligi ble based on patient's age to complete this topic MENINGOCOCCAL VACCINES (ACWY) Aged Out No longer eligible based on patient's age to complete this topic MENINGOCOCCAL VACCINES (B) Aged Out N o longer eligible based on patient's age to complete this topic Medical Devices Not on file Insurance [facility] MEDICARE REPLACEMENT [facility] MEDIC[facility]EMENT [facility] MEDICARE [facility]EMENT [facility] MEDICARE REPLACEMENT [facility] MEDIC[facility] REPLACEMENT Member Subscriber Plan / Payer (Ef fective 2018-Present) Name:Misbah Iverson Relation to Subscriber:Self Name:Misbah Iverson Payer ID:[id number] (NAIC) Type:Medicare Address: [place] [id number] [facility] MEDICARE REPLACEMENT Member Subscriber Plan / Payer (Ef fective 2018-Present) Name:Misbah Iverson Relation to Subscriber:Self Name:Misbah Iverson Payer ID:[id number] (NAIC) Type:Medicare Address: [place] [id number] Care Teams Setter Induction Heating Equipment Relationship Specialty Start Date End Date Jaylon Carvajal MD [address] [place] [address] PCP - General Internal Medicine 09/10/18 Additional Source Comments The information contained in this document represents components of the legal health record. It is not the complete legal health record.[facility]
--- NOTE | 2025-03-22 10:08 | A.OFFPC_ITS ---
Intake Visit Reasons: [facility] referral-[phone] Allergies iodine (IODINE) Allergy (Intermediate, Verified 12/06/24 19:12) HIVES, bloating latex (LATEX) Allergy (Intermediate, Verified 12/06/24 19:12) HIVES shellfish derived (SHELLFISH DERIVED) Allergy (Intermediate, Verified 12/06/24 19:12) ANAPHYLAXIS egg Allergy (Verified 12/06/24 19:12) Hives lisinopril Allergy (Verified 12/06/24 19:12) Unknown Peppers, Green Allergy (Verified 12/06/24 19:12) Hives spinach Allergy (Verified 12/06/24 19:12) Hives Medication List - Last Reconciled 03/22/25 by Jaylon Carvajal MD acetaminophen ER 1,300 mg PO BID PRN atorvastatin 10 mg PO DAILY bupropion HCl 100 mg PO TID carvedilol 6.25 mg PO BID cetirizine 10 mg PO BEDTIME cholecalciferol (vitamin D3) (Vitamin D3) 50 mcg PO DAILY digoxin 250 mcg PO MOWEFR duloxetine 40 mg PO DAILY furosemide 20 mg PO BID gabapentin 300 mg PO FR gabapentin 100 mg PO MOWESA multivitamin 1 tab PO DAILY omega-3 fatty acids 500 mg PO DAILY risperidone 1 mg PO BEDTIME warfarin 2 mg PO Q48H warfarin 4 mg PO Q48H warfarin 4 mg See Protocol PO DAILY Tobacco use date assessed: 09/06/24 Dental Screening Dental Screen Date: 09/06/24 HPI [facility] referral-[phone] HPI Details History The patient is a 74-year-old male presenting with low-grade fever, dizziness, urinary frequency, and care assistance needs. has past medical history of AFib on warfarin, essential hypertension, COPD, CAD, anxiety, depression, NOEMI on CPAP a, GERD, DM patient normally lives home by himself woke with a walker, has been having on on of lower extremity tremors bilaterally causing him to fall patient fell recurrently, he presented to [facility] for evaluation , he verbalized to falling 4 times that morning His Hb was 13.3 INR was 7.4 that day Low-grade fever: - Onset: Approximately three weeks ago. - Symptom: Patient reports a consistent low-grade fever, recording around 100 degrees Fahrenheit. - Symptom Frequency: Persistent for the past three weeks without significant change.. - Associated Symptoms: Reports general f atigue. Dizziness: - Onset: Started approximately three wee ks ago. - Symptom Description: Frequent dizzy ep isodes, though specific triggers were not mentioned. - Associated Symptoms: Patient reports f eeling tired. Urinary frequency: - Onset: Not specifically stated, but pe rsists alongside other current symptoms. - Symptom Description: Frequent urinatio n every two to three hours. - Associated Symptoms: Reports difficult y in getting full night's sleep due to urinary frequency. - Aggravating Factors: Prescribed furose mide, which may contribute to increased urination. Need for assistance with personal care: - Onset: Due to recent hospitalization a nd rehabilitation period ending in falls, patient describes increased dependency. - Needs: Requires assistance with person al hygiene, cooking, cleaning, and bathing. - Progression: Expresses concern over ab ility to perform daily activities due to physical limitations and anxiety about falling. Medical History: - Recent hospitalization due to falls. - Rehabilitation following falls. - Prescribed furosemide for an unspecifi ed reason. - Prescribed warfarin (Coumadin) for ant icoagulation. - Anxiety regarding stairs and potential falls. Meds carvedilol 6.25 mg tablet 6.25 mg PO BID Qty: 180 3RF furosemide 20 mg tablet 20 mg PO BID Qty: 180 3RF multivitamin Tablet 1 tab PO DAILY gabapentin 300 mg capsule 300 mg PO FR cholecalciferol (vitamin D3) [Vitamin D3] 25 mcg (1,000 unit) Tablet 50 mcg PO DAILY bupropion HCl 100 mg tablet 100 mg PO TID warfarin 4 mg tablet 2 mg PO Q48H warfarin 4 mg tablet 4 mg PO Q48H atorvastatin 10 mg tablet 10 mg PO DAILY digoxin 250 mcg (0.25 mg) tablet 250 mcg PO MOWEFR gabapentin 100 mg capsule 100 mg PO MOWESA duloxetine 20 mg capsule,delayed release(DR/EC) 40 mg PO DAILY cetirizine 10 mg tablet 10 mg PO BEDTIME risperidone 1 mg tablet 1 mg PO BEDTIME - Additional unspecified psychiatric med ications obtained from [facility]. Social History: - Lives alone, expresses fear of falling , which limits mobility and ability to perform daily activities. - Dependent on SENIOR PROCUREMENT SPECIALIST services for transpor tation and support. - Indicates SENIOR PROCUREMENT SPECIALIST or senior living neede d for INR checks and other daily activities. - Has anxiety about stairs which impacts visits and ability to leave home. Problem List - Low-grade fever - Dizziness - Urinary frequency - Personal care assistance needs - Urinary incontinence - Fall history and related post-rehabili tation needs - Cardiomypathy - asthma / COPD - morbid obesity - bilateral lower ext weakness - depression treated by Psych at [facility] (seeking SENIOR PROCUREMENT SPECIALIST se rvices) - [facility] (previous SENIOR PROCUREMENT SPECIALIST service prov ider) - [facility] (recently invol js for hospitalization) - Cardio [facility] Patient Instructions - Follow up on the SENIOR PROCUREMENT SPECIALIST and skilled nursi ng services. - Coordinate urine sample collection as planned. - Begin new prescription for Flomax to h elp with urinary frequency. - Check INR, digoxin levels, and provide urine sample for analysis as instructed by visiting medical staff. - also need other labs, dig level, Hba1c [ diet control diabeties ] Review of Systems General: yes fever no chills neurological: No headaches yes dizziness ear nose throat: No sore throat no hearing difficulty no ear pain cardiovascular: No syncope, no chest pain, no palpitations gastrointestinal: No nausea vomiting skin: No new complaints [facility] Medical History Heart failure with reduced ejection fraction Chest pain, pleuritic Back pain Dyspnea NOEMI on CPAP COPD (chronic obstructive pulmonary disease) CAD (coronary artery disease) HLD (hyperlipidemia) HTN (hypertension) Diabetes Obstructive sleep apnea Morbid obesity Cardiomyopathy Persistent atrial fibrillation Current use of anticoagulant therapy Surgical History History of knee surgery History of ankle surgery Family History Father HTN (hypertension) Diabetes mellitus Cardiac disease Bone cancer Substance use disorder Mother HTN (hypertension) Lung cancer Social History Household Members: None Housing: Apartment Do you presently have visiting nurse or other home services: No Alcohol intake: never Comment: refusing alarms Patient Tobacco Use Status: Former Tobacco user Years Smoked: 30 yrs e-Cigarette/Vaping Use: Never Used Second Hand Smoke Exposure: No Substance Use Type: Crack/Cocaine service: No Current occupational status: retired and disabled Cognitive needs: No Hearing needs: No Vision needs: Yes Questionnaire Thrive Questionnaire Date Thrive assessed: 08/21/24 VIRGILIO-7 AMB Questionnaire VIRGILIO-7 Date VIRGILIO - 7 assessed: 01/05/24 Source: Developed by Drs. Momo Barboza, Sue De Leon, Cameron De Jesus and colleagues, with an educational nancy from [employer]. Physical exam (Primary Care) Tobacco/Smoking Status: Tobacco use Status Tobacco use date assessed 09/06/24 03/22/25 10:09 Patient Tobacco Use Status Former Tobacco user 03/22/25 10:09 e-Cigarette/Vaping Use Never Used 03/22/25 10:09 Thrive Assessment: Date of Thrive Assessment Date Thrive assessed 08/21/24 03/22/25 10:09 Telehealth Telehealth Telehealth Platform: Lalina Location of provider rendering services: practice address Location of patient: address on file Patient Identification confirmed using: Name, : Yes Telehealth method: video Patient verbally consented to treatment: Yes Patient verbally consented to billing insurance company: Yes Patient informed of any privacy concerns related to visit: Yes Coding Level of Care Code Tele Est Pt Level 5 (41060) Complex EM visit Add On G2211 Diagnoses Impaired mobility and ADLs Z74.09; Z78.9 Low grade fever R50.9 Heart failure with reduced ejection fraction I50.20 Difficulty navigating stairs Z78.9 Weakness of both lower extremities R29.898 Laterality: bilateral Frequency of urination R35.0 Gait instability R26.81 Cardiomyopathy, unspecified type I42.9 Cardiomyopathy type: unspecified Diabetes 1.5, managed as type 2 E13.9 Chronic atrial fibrillation I48.20 Current use of anticoagulant therapy Z79.01 Coronary artery disease involving [place] coronary artery of [place] heart without angina pectoris I25.10 Coronary Disease-Associated Artery/Lesion type: [place] artery [place] vs. transplanted heart: [place] heart Associated angina: without angina Chronic obstructive pulmonary disease, unspecified COPD type J44.9 COPD type: unspecified COPD Chronic GERD K21.9 Benign prostatic hyperplasia with nocturia N40.1; R35.1 Lower urinary tract symptom presence: symptoms present Lower urinary tract symptom detail: nocturia Morbid obesity with BMI of 45.0-49.9, adult E66.01; Z68.42 Primary osteoarthritis of both knees M17.0 Osteoarthritis type: primary Time Spent (min) 40 Comment review chart / ER notes / labs/ face to face / coordination of care Assessment & Plan Assessment & Plan (1) Impaired mobility and ADLs: Code(s): Z74.09 - Other reduced mobility; Z78.9 - Other specified health status Category: Medical (2) Low grade fever: Code(s): R50.9 - Fever, unspecified Category: Medical (3) Heart failure with reduced ejection fraction: Code(s): I50.20 - Unspecified systolic (congestive) heart failure Category: Medical (4) Difficulty navigating stairs: Code(s): Z78.9 - Other specified health status Category: Medical (5) Weakness of lower extremity: Code(s): R29.898 - Other symptoms and signs involving the musculoskeletal system Category: Medical Qualifiers: Laterality: bilateral Qualified Code(s): R29.898 - Other symptoms and signs involving the musculoskeletal system (6) Frequency of urination: Code(s): R35.0 - Frequency of micturition Category: Medical (7) Gait instability: Code(s): R26.81 - Unsteadiness on feet Category: Medical (8) Cardiomyopathy: Code(s): I42.9 - Cardiomyopathy, unspecified Category: Medical Qualifiers: Cardiomyopathy type: unspecified Qualified Code(s): I42.9 - Cardiomyopathy, unspecified (9) Diabetes 1.5, managed as type 2: Code(s): E13.9 - Other specified diabetes mellitus without complications Category: Medical (10) Chronic atrial fibrillation: Code(s): I48.20 - Chronic atrial fibrillation, unspecified Category: Medical (11) Current use of anticoagulant therapy: Code(s): Z79.01 - long-term (current) use of anticoagulants Category: Medical (12) CAD (coronary artery disease): Code(s): I25.10 - Atherosclerotic heart disease of [place] coronary artery without angina pectoris Category: Medical Qualifiers: Coronary Disease-Associated Artery/Lesion type: [place] artery [place] vs. transplanted heart: [place] heart Associated angina: without angina Qualified Code(s): I25.10 - Atherosclerotic heart disease of [place] coronary artery without angina pectoris (13) COPD (chronic obstructive pulmonary disease): Comment: No definitive evidence of COPD on recent PFTs Code(s): J44.9 - Chronic obstructive pulmonary disease, unspecified Category: Medical Qualifiers: COPD type: unspecified COPD Qualified Code(s): J44.9 - Chronic obstructive pulmonary disease, unspecified (14) Chronic GERD: Code(s): K21.9 - Gastro-esophageal reflux disease without esophagitis Category: Medical (15) Benign prostatic hyperplasia: Code(s): N40.0 - Benign prostatic hyperplasia without lower urinary tract symptoms Category: Medical Qualifiers: Lower urinary tract symptom presence: symptoms present Lower urinary tract symptom detail: nocturia Qualified Code(s): N40.1 - Benign prostatic hyperplasia with lower urinary tract symptoms; R35.1 - Nocturia (16) Morbid obesity with BMI of 45.0-49.9, adult: Code(s): E66.01 - Morbid (severe) obesity due to excess calories; Z68.42 - Body mass index [BMI] 45.0-49.9, adult Category: Medical (17) Osteoarthritis of knees, bilateral: Code(s): M17.0 - Bilateral primary osteoarthritis of knee Category: Medical Qualifiers: Osteoarthritis type: primary Qualified Code(s): M17.0 - Bilateral primary osteoarthritis of knee Plan History The patient is a 74-year-old male presenting with low-grade fever, dizziness, urinary frequency, and care assistance needs. has past medical history of AFib on warfarin, essential hypertension, COPD, CAD, anxiety, depression, NOEMI on CPAP a, GERD, DM patient normally lives home by himself woke with a walker, has been having on on of lower extremity tremors bilaterally causing him to fall patient fell recurrently, he presented to [facility] 12/05/2024 for evaluation , he verbalized to falling 4 times that morning His Hb was 13.3 INR was 7.4 that day Low-grade fever: - Onset: Approximately three weeks ago. - Symptom: Patient reports a consistent low-grade fever, recording around 100 degrees Fahrenheit. - Symptom Frequency: Persistent for the past three weeks without significant change.. - Associated Symptoms: Reports general fatigue. Dizziness: - Onset: Started approximately three weeks ago. - Symptom Description: Frequent dizzy episodes, though specific triggers were not mentioned. - Associated Symptoms: Patient reports feeling tired. Urinary frequency: - Onset: Not specifically stated, but persists alongside other current symptoms. - Symptom Description: Frequent urination every two to three hours. - Associated Symptoms: Reports difficulty in getting full night's sleep due to urinary frequency. - Aggravating Factors: Prescribed furosemide, which may contribute to increased urination. Need for assistance with personal care: - Onset: Due to recent hospitalization and rehabilitation period ending in falls, patient describes increased dependency. - Needs: Requires assistance with personal hygiene, cooking, cleaning, and bathing. - Progression: Expresses concern over ability to perform daily activities due to physical limitations and anxiety about falling. Medical History: - Recent hospitalization due to falls. - Rehabilitation following falls. - Prescribed furosemide for an unspecified reason. - Prescribed warfarin (Coumadin) for anticoagulation. - Anxiety regarding stairs and potential falls. Meds carvedilol 6.25 mg tablet 6.25 mg PO BID Qty: 180 3RF furosemide 20 mg tablet 20 mg PO BID Qty: 180 3RF multivitamin Tablet 1 tab PO DAILY gabapentin 300 mg capsule 300 mg PO FR cholecalciferol (vitamin D3) [Vitamin D3] 25 mcg (1,000 unit) Tablet 50 mcg PO DAILY bupropion HCl 100 mg tablet 100 mg PO TID warfarin 4 mg tablet 2 mg PO Q48H warfarin 4 mg tablet 4 mg PO Q48H atorvastatin 10 mg tablet 10 mg PO DAILY digoxin 250 mcg (0.25 mg) tablet 250 mcg PO MOWEFR gabapentin 100 mg capsule 100 mg PO MOWESA duloxetine 20 mg capsule,delayed release(DR/EC) 40 mg PO DAILY cetirizine 10 mg tablet 10 mg PO BEDTIME risperidone 1 mg tablet 1 mg PO BEDTIME - Additional unspecified psychiatric medications obtained from [facility]. Social History: - Lives alone, expresses fear of falling, which limits mobility and ability to p erform daily activities. - Dependent on SENIOR PROCUREMENT SPECIALIST services for transportation and support. - Indicates SENIOR PROCUREMENT SPECIALIST or senior living needed for INR checks and other daily activities. - Has anxiety about stairs which impacts visits and ability to leave home. Problem List - Low-grade fever - Dizziness - Urinary frequency - Personal care assistance needs - Urinary incontinence - Fall history and related post-rehabilitation needs - Cardiomypathy - asthma / COPD - morbid obesity - bilateral lower ext weakness - depression treated by Psych at [facility] - [facility] (seeking SENIOR PROCUREMENT SPECIALIST services) - [facility] (previous SENIOR PROCUREMENT SPECIALIST service provider) - [facility] (recently involved for hospitalization) - Cardio [facility] Patient Instructions - Follow up on the SENIOR PROCUREMENT SPECIALIST and senior living services. - Coordinate urine sample collection as planned. - Begin new prescription for Flomax to help with urinary frequency. - Check INR, digoxin levels, and provide urine sample for analysis as instructed by visiting medical staff. - also need other labs, dig level, Hba1c [ diet control diabeties ] Orders: Orders Comprehensive Met. Panel Today E13.9 - Other specified diabetes mellitus without complications, E66.01 - Morbid (severe) obesity due to excess calories, I25.10 - Atherosclerotic heart disease of [place] coronary artery without angina pectoris, I42.9 - Cardiomyopathy, unspecified, I48.20 - Chronic atrial fibrillation, unspecified, I50.20 - Unspecified systolic (congestive) heart failure, J44.9 - Chronic obstructive pulmonary disease, unspecified, K21.9 - Gastro-esophageal reflux disease without esophagitis, N40.1 - Benign prostatic hyperplasia with lower urinary tract symptoms, R35.0 - Frequency of micturition, R35.1 - Nocturia, R50.9 - Fever, unspecified, Z68.42 - Body mass index [BMI] 45.0-49.9, adult, Z79.01 - long term care phlebotomist (current) use of anticoagulants Hemoglobin A1c Today E13.9 - Other specified diabetes mellitus without complications, E66.01 - Morbid (severe) obesity due to excess calories, I25.10 - Atherosclerotic heart disease of [place] coronary artery without angina pectoris, I42.9 - Cardiomyopathy, unspecified, I48.20 - Chronic atrial fibrillation, unspecified, I50.20 - Unspecified systolic (congestive) heart failure, J44.9 - Chronic obstructive pulmonary disease, unspecified, K21.9 - Gastro-esophageal reflux disease without esophagitis, N40.1 - Benign prostatic hyperplasia with lower urinary tract symptoms, R35.0 - Frequency of micturition, R35.1 - Nocturia, R50.9 - Fever, unspecified, Z68.42 - Body mass index [BMI] 45.0-49.9, adult, Z79.01 - long term care phlebotomist (current) use of anticoagulants UA CC w/rflx Micro + Cult Today E13.9 - Other specified diabetes mellitus without complications, E66.01 - Morbid (severe) obesity due to excess calories, I25.10 - Atherosclerotic heart disease of [place] coronary artery without angina pectoris, I42.9 - Cardiomyopathy, unspecified, I48.20 - Chronic atrial fibrillation, unspecified, I50.20 - Unspecified systolic (congestive) heart failure, J44.9 - Chronic obstructive pulmonary disease, unspecified, K21.9 - Gastro-esophageal reflux disease without esophagitis, N40.1 - Benign prostatic hyperplasia with lower urinary tract symptoms, R35.0 - Frequency of micturition, R35.1 - Nocturia, R50.9 - Fever, unspecified, Z68.42 - Body mass index [BMI] 45.0-49.9, adult, Z79.01 - long-term (current) use of anticoagulants Digoxin Today E13.9 - Other specified diabetes mellitus without complications, E66.01 - Morbid (severe) obesity due to excess calories, I25.10 - Atherosclerotic heart disease of [place] coronary artery without angina pectoris, I42.9 - Cardiomyopathy, unspecified, I48.20 - Chronic atrial fibrillation, unspecified, I50.20 - Unspecified systolic (congestive) heart failure, J44.9 - Chronic obstructive pulmonary disease, unspecified, K21.9 - Gastro-esophageal reflux disease without esophagitis, N40.1 - Benign prostatic hyperplasia with lower urinary tract symptoms, R35.0 - Frequency of micturition, R35.1 - Nocturia, R50.9 - Fever, unspecified, Z68.42 - Body mass index [BMI] 45.0-49.9, adult, Z79.01 - long-term (current) use of anticoagulants Prothrombin Time INR Today E13.9 - Other specified diabetes mellitus without complications, E66.01 - Morbid (severe) obesity due to excess calories, I25.10 - Atherosclerotic heart disease of [place] coronary artery without angina pect [place], I42.9 - Cardiomyopathy, unspecified, I48.20 - Chronic atrial fibrillation, unspecified, I50.20 - Unspecified systolic (congestive) heart failure, J44.9 - Chronic obstructive pulmonary disease, unspecified, K21.9 - Gastro-esophageal reflux disease without esophagitis, N40.1 - Benign prostatic hyperplasia with lower urinary tract symptoms, R35.0 - Frequency of micturition, R35.1 - Nocturia, R50.9 - Fever, unspecified, Z68.42 - Body mass index [BMI] 45.0-49.9, adult, Z79.01 - long-term (current) use of anticoagulants Complete Blood Count Auto Diff Today E13.9 - Other specified diabetes mellitus without complications, E66.01 - Morbid (severe) obesity due to excess calories, I25.10 - Atherosclerotic heart disease of [place] coronary artery without angina pectoris, I42.9 - Cardiomyopathy, unspecified, I48.20 - Chronic atrial fibrillation, unspecified, I50.20 - Unspecified systolic (congestive) heart failure, J44.9 - Chronic obstructive pulmonary disease, unspecified, K21.9 - Gastro-esophageal reflux disease without esophagitis, N40.1 - Benign prostatic hyperplasia with lower urinary tract symptoms, R35.0 - Frequency of micturition, R35.1 - Nocturia, R50.9 - Fever, unspecified, Z68.42 - Body mass index [BMI] 45.0-49.9, adult, Z79.01 - long term care phlebotomist (current) use of anticoagulants [facility]errals [facility] Referral I42.9 - Cardiomyopathy, unspecified, I48.20 - Chronic atrial fibrillation, unspecified, I50.20 - Unspecified systolic (congestive) heart failure, J44.9 - Chronic obstructive pulmonary disease, unspecified, M17.0 - Bilateral primary osteoarthritis of knee, N40.1 - Benign prostatic hyperplasia with lower urinary tract symptoms, R26.81 - Unsteadiness on feet, R29.898 - Other symptoms and signs involving the musculoskeletal system, R35.0 - Frequency of micturition, R35.1 - Nocturia, R50.9 - Fever, unspecified, Z78.9 - Other specified health status, Z91.81 - History of falling Medications: New tamsulosin (Flomax) 0.4 mg PO BEDTIME 90 caps 0RF
== END 2025-03-22 10:58 | disposition home or self-care (01) ==
LOC: HO.HMCC 06:51
PROVIDERS: PCP Internal Medicine; Visit Provider Internal Medicine
DX: I48.20 Chronic atrial fibrillation, unspecified (principal); I50.20 Unspecified systolic (congestive) heart failure; I42.9 Cardiomyopathy, unspecified; E13.9 Other specified diabetes mellitus without complications; J44.9 Chronic obstructive pulmonary disease, unspecified; E66.01 Morbid (severe) obesity due to excess calories; Z68.42 Body mass index [BMI] 45.0-49.9, adult; Z74.09 Other reduced mobility; Z78.9 Other specified health status; R50.9 Fever, unspecified; R29.898 Other symptoms and signs involving the musculoskeletal system; R35.0 Frequency of micturition

== ENCOUNTER 2025-03-30 15:41 | Outpatient (REF) | payer MEDICARE, MEDICAID, SELFPAY ==
[2025-03-30 15:49] LABS: MANUAL DIFF FLAG NO
[2025-03-30 15:58] LABS: Hematocrit 44.2 % (42.0-52.0); Hemoglobin 15.1 g/dl (14.0-18.0); Imm Gran Abs Auto 0.03 X10*3/uL (0.00-0.03); Imm Gran Pct Auto 0.3 % (0.0-0.4); Lymphocytes Absolute Auto 1.8 X10*3/uL (1.2-4.9); Mean Corpuscular HGB Conc 34.2 g/dl (31.0-36.0); Mean Corpuscular Hemoglobin 31.5 pg (27.0-33.0); Mean Corpuscular Volume 92.1 fL (80.0-98.0); NRBC Abs Auto 0.000 X10*3/uL (0.0-0.012); NRBC Pct Auto 0.0 /100WBC (0.0-0.2); Platelet Count 231 X10*3/uL (160-400); Red Blood Count 4.80 X10*6/uL (4.60-5.80); White Blood Count 10.5 X10*3/uL (4.8-10.8)
[2025-03-30 16:08] LABS: Hemoglobin A1C 171.5068 umol/L; Total Hemoglobin (HGBA1C) 3831.8785 umol/L
[2025-03-30 16:40] LABS: Alanine Aminotransferase 14 U/L (0-40); Albumin Level 4.1 g/dL (3.5-5.0); Alkaline Phosphatase 86 U/L (39-117); Anion Gap 16 (12-20); Aspartate Amino Transferase 25 U/L (5-37); Blood Urea Nitrogen 9 mg/dL (9-16); Calcium 8.7 mg/dL (8.4-10.2); Carbon Dioxide 27 mmol/L (22-29); Chloride 99 mmol/L (96-108); Estimated Glomerular Filt Rate > 60; Potassium 3.2 mmol/L (3.3-5.1); Sodium 139 mmol/L (135-145); Total Protein 6.8 g/dL (6.5-8.0)
[2025-03-30 16:44] LABS: Digoxin 0.3 ng/mL (0.8-2.0)
[2025-03-30 16:55] LABS: Appearance Urine Clear; Glucose Urine UA Negative (Negative); PH 5.5 (5.0-9.0); Specific Gravity - Urine 1.010 (1.005-1.025)
== END 2025-03-30 15:42 | disposition home or self-care (01) ==
LOC: HO.HVNA 15:41
PROVIDERS: Visit Provider Internal Medicine
DX: I48.91 Unspecified atrial fibrillation (principal); E66.9 Obesity, unspecified; Z13.1 Encounter for screening for diabetes mellitus
CPT/HCPCS: 36415; 80053; 80162; 81003; 83036; 85025

== ENCOUNTER 2025-04-03 13:18 | Outpatient (REF) | payer MEDICARE, MEDICAID, SELFPAY ==
--- OUTSIDE RECORDS SUMMARY | 2025-04-03 17:13 | XMS_ITS ---
Author Name Montero BRITTNEYHomer Address [address] [place] [address] Phone [phone] [facility] Care Team Providers Care Radio Recorder Name Role Phone Homer Montero Unavailable [phone] [facility] Unavailable [phone] Reason for Referral Not Available Allergies, adverse [...] to discuss with PCP for medications for watermelon inspector use seen by psychiatry has appt next [...] states he can likely get someone from [facility] 01/25/24: PHQ-4=5 (Mild), continues to follow [...] PCP for ongoing monitoring and management Sees business excellence leader Dr. Loomis01/25/24: Denies any dyspnea with exertion. [...] joint pain increased [facility]. [facility] with [facility] as needed for any acute or [...] (do not use for phone, instead use 03589-55) [facility] ([place]) [place]2022 Unspecified atrial fibrillationOther thrombophiliaChronic obstructive pulmonary [...] (do not use for phone, instead use 60978-81) [facility] New patient,40-59min; chronic exacerbation, 2 stable chronic or 1 acute illness add add modifier 95 for video (do not use for phone, instead use 84154-64) [facility] New patient,40-59min; chronic exacerbation, 2 stable chronic or 1 acute illness add add modifier 95 for video (do not use for phone, instead use 41289-33) [facility] New patient,40-59min; chronic exacerbation, 2 stable chronic or 1 acute illness add add modifier 95 for video (do not use for phone, instead use 25949-69) [facility] New patient,40-59min; chronic exacerbation, 2 stable chronic or 1 acute illness add add modifier 95 for video (do not use for phone, instead use 56857-20) [facility] New patient,40-59min; chronic exacerbation, 2 stable chronic or 1 acute illness add add modifier 95 for video (do not use for phone, instead use 55925-54) [facility] New patient,40-59min; chronic exacerbation, 2 stable chronic or 1 acute illness add add modifier 95 for video (do not use for phone, instead use 99586-92) [facility] New patient,40-59min; chronic exacerbation, 2 stable chronic or 1 acute illness add add modifier 95 for video (do not use for phone, instead use 83742-53) [facility] 07[place]2022 No Data Available [facility]/2022 History of fallingMyalgia, o ther site No Data Available [facility] 08/18/2022 Unspecified atrial fibrillationOther thrombophiliaChronic obstructive pulmonary disease, unspecifiedUnspecified disorder of circulatory systemChronic pulmonary embolismHeart failure, unspecifiedCardiomyopathy, unspecifiedMajor depressive disorder, recurrent, in full remissionHyperlipidemia, unspecifiedObstructive sleep apnea (adult) (pediatric)History of fallingMyalgia, other siteMorbid (severe) obesity due to excess caloriesInsomnia, unspecifiedSedative, hypnotic or anxiolytic dependence, uncomplicatedPersonal history of nicotine dependence No Data Available [facility] 10[place]14[place]2022 Other thrombophiliaUnspecifi ed atrial fibrillationChronic obstructive pulmonary disease, unspecifiedUnspecified disorder of circulatory systemChronic pulmonary embolismHeart failure, unspecifiedCardiomyopathy, unspecifiedMajor depressive disorder, recurrent, in full remissionCoagulation defect, unspecifiedHyperlipidemia, unspecifiedObstructive sleep apnea (adult) (pediatric)History of fallingMyalgia, other siteMorbid (severe) obesity due to excess caloriesBody mass index (BMI) 45.0-49.9, adultInsomnia, unspecifiedSedative, hypnotic or anxiolytic dependence, uncomplicated No Data Available [facility]14[place]2022 No Data Available [facility]2022 No Data Available [facility]20[place] No Data Available [facility] 10[place]20[place] No Data Available [facility] 09[place]11/2023 Dizziness and giddinessBody mass index (BMI) 40.0-44.9, adult No Data Available [facility] 09[place]2023 No Data Available [facility] 09[place]2023 No Data Available [facility] 09/[place]2023 No Data Available [facility] 09[place]2023 No Data Available [facility] 01/25/2024 Other thrombophiliaUnspecifi ed atrial fibrillationOther problems related to medical facilities and other health careChronic obstructive pulmonary disease, unspecifiedChronic pulmonary embolismUnspecified disorder of circulatory systemCardiomyopathy, unspecifiedHeart failure, unspecifiedMajor depressive disorder, recurrent, in full remissionHyperlipidemia, unspecifiedObstructive sleep apnea (adult) (pediatric)History of fallingMyalgia, other siteMorbid (severe) obesity due to excess caloriesBody mass index (BMI) 40.0-44.9, adultInsomnia, unspecified No Data Available [facility] 01[place]2024 No Data Available [facility] 01/[place]2024 No Data Available [facility] 01/[place]2024 No Data Available [facility]24 No Data Available [facility] 01/[place]24 No Data Available [facility] 01/[place]2024 No Data Available [facility] 01[place]2024 No Data Available [facility] 01/25/2024 Vital Signs Date [...] tive Time Current Smoking Status Former smoker 2025-03-19 8 Sex Male History of Procedures Procedures Service Procedure code Service date Servicing provider Phone# New patient,40-59min; chronic exacerbation, 2 stable chronic or 1 acute illness add add modifier 95 for video (do not use for phone, instead use 12376-19) 09907 2022-07-27 No Data Available No Data Availa [...] le No Data Available No Data Available 50021 2024-01-25 No Data Available No Data Available [...] states he can likely get someone from [facility] warfarin- follows closely with cardio [...] to discuss with PCP for medications for watermelon inspector usehas been on lorazepam for 5 years [...] states he can likely get someone from [facility] warfarin- follows closely with cardio [...] to discuss with PCP for medications for detention use seen by psychiatry has appt next [...] call CBContinue to see PCP. Follow-up with [facility] as needed for any acute or [...] PCP for ongoing monitoring and management Sees business excellence leader Dr. Loomis01/25/24: Denies any dyspnea with exertion.Other [...] states he can likely get someone from [facility] 01/25/24: PHQ-4=5 (Mild), continues to follow [...] diet regimen; His goal is to weigh [id number]- was sent hydroxyzine recently and worked better than his lorazepamstates his pain is what impedes his sleepingdiscussed use of OTC melatonin 10mg states he will try advised to discuss with PCP for medications for watermelon inspector use seen by psychiatry has appt next [...] discussedDo you have a Durable Power of Ward Assistant for Healthcare, or Healthcare Proxy Or Guardianship? Yes, preferred proxy but not named KRISTINEf so, Who? Sister Lorne you have a written Advance Directive? Has Advance DirectiveOther details of discussion: Patient expressed her desire to be DNI code status, he is planning to discuss with PCPToday's plan: Advised patient to discuss wishes with [id number] : AD or surrogate was documented in the medical record.
--- OUTSIDE RECORDS SUMMARY | 2025-04-03 17:14 | XMS_ITS ---
Author Organization [facility] Care Team Providers Care Platform Power Technician Name Role Phone Eryn Villarreal Unavailable Unavailable Joo Oswald Unavailable Unavailable Brittany Ly Unavailable Unavailable Magalie Brand Unavailable Unavailable Allergies and adverse reactions Code CodeSystem Substance Reaction Severity StartDate Concern Status Shell Fish Unknown 09/02/2018 active Latex Unknown 09/02/2018 active 5933 RXNORM Iodine Unknown 09/02/2018 active Care Team Name Role Address Phone Organization Dates Eryn Villarreal [address] [place], [address], [place] (Office[place] : [facility] [place] 09/02/2018 - 09/13/2018 Joo Oswald [address] [facility] [address], [address], [place]Office[place] : [facility] [place] 09/02/2018 - 09/13/2018 Brittany Ly [address] [facility] [address], [place], [address], [place]Office[place] : [facility] 09/02/2018 - 09/13/2018 Magalie Brand [address] [facility] [address], [address], [place]Office): : [facility] 09/02/2018 - 09/13/2018 Immunizations Immunization Status Vaccine Details Vaccine Code CodeSystem Date Notes PCV (Prevnar) 13 completed pneumococcal conjugate vaccine, 13 valent lotNumber: [id number] expiry: 07/19/2019 Given 0.5 ml Right Deltoid [...] SUBSEQUENT STRIKING AGAINST OBJECT, SUBSEQUENT ENCOUNTER 09/05/[id number] active 2 DIFFICULTY IN WALKING, NOT ELSEWHERE CLASSIFIED 09/02/[address] active 3 EFFUSION, RIGHT KNEE 09/02/[address] active 4 ESSENTIAL (PRIMARY) HYPERTENSION 09/02/[address] active 5 GASTRO-ESOPHAGEAL REFLUX DISEASE WITHOUT ESOPHAGITIS 09/02/[address] active 6 HYPERLIPIDEMIA, UNSPECIFIED 09/02/[address] active 7 MAJOR DEPRESSIVE DISORDER, SINGLE EPISODE, UNSPECIFIED 09/02/[address] active 8 TYPE 2 DIABETES MELLITUS WITHOUT COMPLICATIONS 09/02/[address] active 9 UNSPECIFIED ASTHMA, UNCOMPLICATED 09/02/[address] active 10 UNSPECIFIED ATRIAL FIBRILLATION 09/02/[address] active 11 UNSPECIFIED INTRACRANIAL INJURY WITHOUT LOSS OF CONSCIOUSNESS, SUBSEQUENT ENCOUNTER 09/02/[address] active 12 UNSTEADINESS ON FEET 09/02/[address] active Reason for Referral No Reasons for Referral Entered Social History Social History Observation Description Start Date End Date Code Code System Current Smoking Status Tobacco smoking consumption unknown 857583371 SNOMED CT Sex Assigned At Male 1950 39740-3 [facility] Gender Identity Sexual Orientation Vital Signs Code Code System Vitals Name Values and Units Timing Information 9279-1 [facility] Respiratory Rate Value=18.0 Units=/m in 09/13/2018 8462-4 [facility] Blood Pressure-Diastolic Value=66 Un its=mmHg 09/13/2018 8480-6 [facility] Blood Pressure-Systolic Pyocr=951 Un its=mmHg 09/13/2018 8310-5 [facility] Body Temperature Value=97.6 Units= F 09/13/2018 8867-4 [facility] Heart rate Value=52.0 Units=/min 12980-4 [facility] O2 % dC Oximetry Value=98.0 Units= % 09/13/2018 78926-7 [facility] Pain Level Value=1.0 09/13/2018 83979-3 [facility] Weight Quktk=182.0 Units=Lbs 8302-2 [facility] Height Value=70.5 Units=Inches 09/03/2018
--- OUTSIDE RECORDS SUMMARY | 2025-04-03 17:14 | XMS_ITS | Clinical Summary ---
Author Organization [facility] Address [address] [facility] [address] [place] [address] Phone Care Team Providers Care Tire Fabric Inspector Name Role Phone Jaylon Carvajal MD Primary Care Provider [phone] Social History Tobacco Use Types Packs/Day Years [...] 2) 2002 Adult Td,Tdap Booster 08/10/2013 08/10/2003 INFLUENZA VACCINE (#1) 2025 , 05/03/2020, 05/30/2019, Additional history exists COVID-19 VACCINE ( - 2024- season) 2025 06/03/2021 RSV VACCINE (1 - 1-dose 75+ [...] topic Medical Devices Not on file Insurance [facility] MEDICARE REPLACEMENT [facility] MEDIC[facility] REPLACEMENT [facility] MEDIC[facility] REPLACEMENT [facility]IC[facility] REPLAC[facility] Care Teams Tire Fabric Inspector Relationship Specialty Start Date End Date Jaylon Carvajal MD [facility] [place] [address] PCP - General Internal Medicine 09/10/18 Additional Source Comments The information contained in this document represents components of the legal health record. It is not the complete legal health record.[facility]
--- OUTSIDE RECORDS SUMMARY | 2025-04-03 17:14 | XMS_ITS | Patient Health Record ---
Author Organization [facility] Address [address] [place] [address] Care Team Providers Care Rehabilitation Counsellor Name Role Phone Wei MARTINEZ, [facility] Primary Care Provider Momo Leon [phone] Allergies Allergen (clinical drug ingredient) Drug/Non Drug [...] Start Date Coverage End Date [place]ARE OF [place] [address] [place] [address] [id number] WEI PULLIAM Self - patient is the insured [employer] [address] [address] [place] [address] [phone] [id number] WEI PULLIAM Self - patient is the insured
--- OUTSIDE RECORDS SUMMARY | 2025-04-03 17:14 | XMS_ITS | Encounter Summary ---
Author Organization [facility] Address [address] [facility] [address] [place] [address] Phone Care Team Providers Care Lining Ironer Name Role Phone Jaylon Carvajal MD Primary Care Provider [phone] Encounter Details Date Type Department Care Team (Late st Contact Info) Description 09/13/2018 Transcribe Orders [facility] Specimen Processing [address] [place] [address] [phone] Joo Oswald MD [address] [place] [address], [address] [place] [address] [email or web address] Atrial fibrillation, unspecified type (Primary Dx) Social [...] EST) PT 30.5(H) 10.2 - 12.9 sec [facility] INR 2.7(H) 0.9 - 1.1 [facility] Comment:Therapeutic range fo r oral Vitamin K antagonists: 2.0-3.5 Blood 09/13/2018 5:50 AM EST 09/13/2018 7:43 AM EST us Joo Oswald MD LAB BLOOD ORDERABLES Final Resul t [address] [address] documented in this encounter Visit Diagnoses Diagnosis Atrial fibrillation, unspecified type- Primary documented in this encounter Care Teams Lining Ironer Relationship Specialty Start Date End Date Jaylon Carvajal MD [address] [place] [address] PCP - General Internal Medicine 09/10/18 documented as of this encounter Additional Source Comments The information contained in this document represents components of the legal health record. It is not the complete legal health record.[facility]
--- OUTSIDE RECORDS SUMMARY | 2025-04-03 17:14 | XMS_ITS | Encounter Summary ---
Author Organization [facility] Address [address] [facility] [address] [place] [address] Phone Care Team Providers Care Certified Coatings Inspector Name Role Phone Jaylon Carvajal MD Primary Care Provider [phone] Encounter Details Date Type Department Care Team (Late st Contact Info) Description 09/10/2018 Transcribe Orders [facility] Specimen Processing [address] [place] [address] [phone] Joo Oswald MD [address] [place] [address] [address] [place] [address] [email or web address] Atrial fibrillation, unspecified type (Primary Dx) Social [...] EST) PT 33.2(H) 10.2 - 12.9 sec [facility] INR 2.9(H) 0.9 - 1.1 [facility] Comment:Therapeutic range fo r oral Vitamin K antagonists: 2.0-3.5 Blood 09/10/2018 6:23 AM EST 09/10/2018 8:24 AM EST us Joo Oswald MD LAB BLOOD ORDERABLES Final Resul t [facility] [address] [place] [address] documented in this encounter Visit Diagnoses Diagnosis Atrial fibrillation, unspecified type- Primary documented in this encounter Care Teams Certified Coatings Inspector Relationship Specialty Start Date End Date Jaylon Carvajal MD [address] [facility] [place] [address] PCP - General Internal Medicine 09/10/18 documented as of this encounter Additional Source Comments The information contained in this document represents components of the legal health record. It is not the complete legal health record.[facility]
== END 2025-04-03 13:19 | disposition home or self-care (01) ==
LOC: HO.HVNA 13:18
PROVIDERS: Visit Provider Internal Medicine
DX: Z13.89 Encounter for screening for other disorder (principal)
CPT/HCPCS: 36415; 85610

== ENCOUNTER 2025-04-04 10:42 | Emergency (ER) | payer MEDICARE, MEDICAID, SELFPAY ==
--- NOTE | ~2025-04-04 | CT_ITS ---
EXAMINATION: CT HEAD WITHOUT CONTRAST CLINICAL INFORMATION: pain, bleeding from ear, elevated INR COMPARISON: CT of the head on December 22, 2022 TECHNIQUE: Contiguous axial imaging was performed from the skull base to vertex without intravenous administration of contrast. This CT examination was performed using dose optimization techniques as appropriate, variously including the following: *Automated exposure control *Adjustment of mA and/or kV according to patient size (this includes techniques or standardized protocols for targeted exams where dose is matched to indication/reason for exam; i.e. extremities or head) *Use of iterative reconstruction technique FINDINGS: Brain parenchyma: No shift of midline structures. No parenchymal hemorrhage, mass effect or evidence of acute territorial infarct. Ventricles/extra-axial spaces: No extra-axial fluid collection. No hydrocephalus. Calvarium/extracranial structures: Hypoaeration of the right mastoid air cells is similar to 2022, but there is new partial opacification of the aerated cells. Small amount of soft tissue density within the right middle ear cavity. Apparent thickening of the right tympanic membrane. The left mastoid air cells and middle ear cavity are unremarkable. Linear densities in the left external auditory canal may represent cerumen. No depressed skull fracture. Stable presumed sebaceous cyst overlying the left parietal bone. Bilateral ocular orbits appear unremarkable. Paranasal sinuses are clear. CT/CT Head for ICH IMPRESSION: 1. No acute intracranial pathology. 2. Partial opacification of the right mastoid air cells, which is chronically hypoaerated compared to the contralateral side. Small amount of soft tissue density within the right middle ear cavity. Apparent thickening of the right tympanic membrane. Findings could represent inflammatory/infectious or posttraumatic changes. Electronically signed by: Rd Marcus MD 04/04/2025 11:48 AM EDT
[2025-04-04 10:46] VITALS: BP 115/65; BP 131/70; PULSE 69; PULSE 70; RESP 16; TEMP 36.7; O2SAT 98; BMI 39.5
--- NOTE | 2025-04-04 10:52 | ED.GENADULT ---
HPI - General Adult General Chief complaint: Recheck/Abnormal Lab/Rx Stated complaint: abnormal labs, bleeding rt ear, headache Time Seen by Provider: 04/04/25 10:52 Source: patient and EMS Mode of arrival: EMS Limitations: no limitations History of Present Illness ED Provider: Rand Burotn PA-C HPI narrative: Patient is a 74 year old assigned male at with a history of atrial fibrillation on Warfarin, DM, GERD, BPH, NOEMI on CPAP, COPD, HTN, BPH, CAD, anxiety, and depression presenting to the emergency department with right ear bleeding and a right-sided headache. Patient states the headache started last night before he went to bed. He reports the pain started in his right forehead and extends down to his right jaw. Patient states he woke up this morning with blood coming from his right ear and on his pillow case. Patient states that he felt a wet sensation from his ear and believed it was cerumen, but then identified blood when he touched his pinky to the area. Patient denies any known injury, trauma, or falls. Patient denies any double vision, blurry vision, chest pain, difficulty breathing, abdominal pain, back pain, or any other symptoms at this time. Patient reports his INR was elevated to 6.2 a few days ago so he held his Warfarin for the past [address] Lewis for cardiology. Patient states that he checks his INR at home and a nurse advises him on what to do over the phone. Related Data Home Medications ?Medication ?Instructions ?Recorded ?Confirmed multivitamin 1 tab PO DAILY 10/22/20 04/03/25 acetaminophen 650 mg 1,300 mg PO BID PRN Pain 08/05/21 04/03/25 tablet,extended release omega-3 fatty acids 500 mg capsule 500 mg PO DAILY 08/05/21 04/03/25 gabapentin 100 mg capsule 100 mg PO MOWESA 09/25/22 04/03/25 duloxetine 20 mg capsule,delayed 40 mg PO DAILY 10/16/22 04/03/25 release cholecalciferol (vitamin D3) 25 50 mcg PO DAILY 12/23/22 04/03/25 mcg (1,000 unit) tablet (Vitamin D3) gabapentin 300 mg capsule 300 mg PO FR 12/23/22 04/03/25 risperidone 1 mg tablet 1 mg PO BEDTIME 01/14/24 04/03/25 bupropion HCl 100 mg tablet 100 mg PO TID 08/21/24 04/03/25 cetirizine 10 mg tablet 10 mg PO BEDTIME 09/25/24 04/03/25 atorvastatin 10 mg tablet 10 mg PO DAILY 12/05/24 04/03/25 digoxin 250 mcg (0.25 mg) tablet 250 mcg PO MOWEFR 12/05/24 04/03/25 tizanidine 4 mg tablet 4 mg PO BEDTIME 03/30/25 04/03/25 warfarin 4 mg tablet See Rx Instructions PO .COMPLEX 04/02/25 04/04/25 Previous Rx's ?Medication ?Instructions ?Recorded carvedilol 6.25 mg tablet 6.25 mg PO BID #180 tabs 11/03/24 furosemide 20 mg tablet 20 mg PO BID #180 tabs 12/04/24 tamsulosin 0.4 mg capsule (Flomax) 0.4 mg PO BEDTIME #90 caps 03/22/25 amoxicillin 875 mg tablet 875 mg PO BID 5 days #10 tabs 04/04/25 Allergies Allergy/AdvReac Type Severity Reaction Status Date / Time iodine (IODINE) Allergy Intermediate HIVES, Verified 04/04/25 10:56 bloating latex (LATEX) Allergy Intermediate HIVES Verified 04/04/25 10:56 shellfish derived (SHELLFISH Allergy Intermediate ANAPHYLAXIS Verified 04/04/25 10:56 DERIVED) egg Allergy Hives Verified 04/04/25 10:56 lisinopril Allergy Unknown Verified 04/04/25 10:56 Peppers, Green Allergy Hives Verified 04/04/25 10:56 spinach Allergy Hives Verified 04/04/25 10:56 Review of Systems Constitutional: Constitutional: Reports as per HPI Eyes: Eyes: Reports as per HPI ENT: Reports as per HPI Cardiovascular: Cardiovascular: Reports as per HPI Respiratory: Respiratory: Reports as per HPI Gastrointestinal: Gastrointestinal: Reports as per HPI Genitourinary: Genitourinary: Reports as per HPI Musculoskeletal: Musculoskeletal: Reports as per HPI Integumentary/Breasts: Skin/Breast: Reports as per HPI Neurologic: Reports as per HPI Psychiatric: Psychiatric: Reports as per HPI Endocrine: Endocrine: Reports as per HPI Hematologic/Lymphatic: Hematologic/Lymphatic: Reports as per HPI Allergic/Immunologic: Allergic/Immunologic: Reports as per HPI [facility] Past Medical History Attestation statement: The following information was validated with the patient. Source: old records reviewed and nursing notes reviewed Medical History Heart failure with reduced ejection fraction Chest pain, pleuritic Back pain Dyspnea NOEMI on CPAP COPD (chronic obstructive pulmonary disease) CAD (coronary artery disease) HLD (hyperlipidemia) HTN (hypertension) Diabetes Obstructive sleep apnea Morbid obesity Cardiomyopathy Persistent atrial fibrillation Current use of anticoagulant therapy Surgical History History of knee surgery History of ankle surgery Family History Family History Father HTN (hypertension) Diabetes mellitus Cardiac disease Bone cancer Substance use disorder Mother HTN (hypertension) Lung cancer Social History Social History Household Members: None Housing: Apartment Do you presently have visiting nurse or other home services: No Alcohol intake: never Comment: refusing alarms Patient Tobacco Use Status: Former Tobacco user Years Smoked: 30 yrs e-Cigarette/Vaping Use: Never Used Second Hand Smoke Exposure: No Substance Use Type: Crack/Cocaine Advance Directives: No Advance Directives Information Provided: No service: No Current occupational status: retired and disabled Cognitive needs: No Hearing needs: No Vision needs: Yes Physical Exam ED Vital Signs: Vital Signs - 24 hr 04/04/25 10:46 04/04/25 12:05 04/04/25 14:07 Temperature 98.0 F 97.3 F 97.6 F Pulse Rate 69 63 75 Respiratory Rate 16 10 L 18 Blood Pressure 115/65 112/53 L 106/68 Pulse Oximetry 98 98 95 Oxygen Delivery Method Room Air Room Air Room Air BMI result Body Mass Index 39.5 Const General: cooperative, no acute distress, alert and awake Nutritional Appearance: well nourished Orientation/consciousness: patient oriented x3 HENMT Other: blood oozing in right external auditory canal, unable to visualize source of bleed or right TM Head: Yes normal to inspection and Yes atraumatic Ears: hearing grossly normal bilaterally and TM normal on the left General nose exam: Normal external nose present, no nasal discharge noted and no epistaxis Face and sinus: Yes normal facial exam, No abrasion and No laceration Mouth: Normal oral and palatal mucosa present, no drooling and no muffled voice Eyes General: appearance normal, both eyes and all related structures Periorbital: periorbital findings normal Eyelids: Yes eyelids normal Conjunctivae: conjunctivae normal Pupils: Equal, round and reactive pupils present EOM: EOMs intact bilaterally Neck Neck: Yes normal visual inspection and Yes full ROM Resp Effort & Inspection: normal respiratory effort and able to speak in complete sentences Neuro General: patient oriented x3, moves all extremities and CN's II-XI intact bilaterally Cranial nerves: Yes Equal, round and reactive pupils present Cognition (Neuro): normal cognition Extrem General: Yes normal to inspection, Yes full ROM and Yes capillary refill normal Psych Appearance: grossly normal Mental Status: mental status grossly normal Affect: normal affect Attitude: cooperative Thought process: Normal thought process present Thought content: Normal thought content present Insight: Good insight present (Psych) Medications Administered Discontinued Medications Generic Name Dose Route Start Last Admin Trade Name Freq PRN Reason Stop Dose Admin Oxcarbazepine 150 mg 04/04/25 12:58 04/04/25 13:02 Oxcarbazepine 150 Mg Tablet PO 04/04/25 12:59 150 mg ONCE ONE Administration Oxymetazoline HCl 2 spray 04/04/25 11:53 04/04/25 12:47 Oxymetazoline Hcl 0.05 % Nasal 15 Ml Coy NOSTRIL-B 04/04/25 11:54 2 spray ONCE ONE Administration Medical Decision Making Medical Decision Making [facility] Narrative: Patient is a 74 year old assigned male at with a history of atrial fibrillation on Warfarin, DM, GERD, BPH, NOEMI on CPAP, COPD, HTN, BPH, CAD, anxiety, and depression presenting to the emergency department with right ear bleeding and a right-sided headache. Patient's physical exam was as noted in the physical exam portion of this note. I am suspicious the patient has a right auditory canal abrasion vs. laceration. Patient's blood work showed an INR of 3.4 but his labs were otherwise unremarkable. Patient's head CT showed no acute intracranial process but did show a small amount of soft tissue density in the right middle ear cavity which could be infectious in nature. I explained my physical exam findings as well as all test results to the patient. I answered all questions asked by the patient. I applied afrain to the right ear canal. Bleeding was controlled. I am suspicious the patient has a right ear canal laceration vs. abrasion secondary to sticking his finger with a long finger nail into the right ear canal. Given the patient's elevated INR, I believe this cause bleeding in the canal space which has put pressure on his trigeminal nerve and is causing pain along the trigeminal nerve disruption of the right side of the face. I was unable to visualize the right TM. Given the patient's physical exam findings and CT head result - will treat as though right sided OM. Patient also given oxcarbazepine for his right sided trigeminal pain. I stressed the importance of the patient taking his medication as directed (either prescribed or as the over the counter packaging recommends). I stressed the importance of the patient following up with his primary care provider, an ENT specialist, and his coagulation nurse. I stressed the importance of the patient returning to the emergency department immediately if his symptoms were to worsen or if he were to develop any dizziness, shortness of breath, difficulty breathing, chest pain, blurry vision, loss of vision, nausea, vomiting, abdominal pain, fever, chills, back pain, or any other complaints. Patient verbalized agreement and understanding with this treatment plan and discharge. Differential Diagnosis Differential Diagnoses: The differential diagnosis associated with the presentation includes Right otitis media Right ear canal abrasion vs. laceration Trigeminal pain Elevated INR Admission/Observation Consideration of admission/observation: Escalation of care including admission/observation considered Patient would have been admitted to the hospital had his work up had any findings where hospital admission was appropriate and his clinical presentation warranted hospital admission. Lab Data [facility] Lab Attestation statement: I reviewed the patient's lab results. My interpretation of these results are in the [facility] Rationale portion of this note. 04/04/25 11:37 04/04/25 11:37 Labs: Lab Results 04/04/25 04/04/25 Range/Units 11:37 11:58 WBC 8.0 (4.8-10.8) X10*3/uL RBC 4.77 (4.60-5.80) X10*6/uL Hgb 15.0 (14.0-18.0) g/dl Hct 42.8 (42.0-52.0) % MCV 89.7 (80.0-98.0) fL MCH 31.4 (27.0-33.0) pg MCHC 35.0 (31.0-36.0) g/dl RDW 12.3 (11.0-16.0) % Plt Count TNP MPV Not Reportable Immature Gran % (Auto) 0.3 (0.0-0.4) % Neut % (Auto) 70.4 (45-73) % Lymph % (Auto) 21.0 (20-40) % [place] % (Auto) 5.7 (2-11) % Eos % (Auto) 1.8 (0-4) % Baso % (Auto) 0.8 (0-2) % Lymph # (Auto) 1.7 (1.2-4.9) X10*3/uL [place] # (Auto) 0.5 (0.1-1.2) X10*3/uL Eos # (Auto) 0.1 (0.0-0.4) X10*3/uL Baso # (Auto) 0.1 (0.0-0.2) X10*3/uL Abs Immat Gran (auto) 0.02 (0.00-0.03) X10*3/uL Absolute Neuts (auto) 5.6 (2.0-8.3) x10*3/uL Absolute Nucleated RBC 0.000 (0.0-0.012) X10*3/uL Nucleated RBC % (auto) 0.0 (0.0-0.2) /100WBC Smear Tech's Comments VERIFIED PT 39.4 H D (10.9-12.4) SEC INR 3.4 H D (0.9-1.1) Sodium 140 (135-145) mmol/L Potassium 3.4 (3.3-5.1) mmol/L Chloride 102 (96-108) mmol/L Carbon Dioxide 29 (22-29) mmol/L Anion Gap 12 (12-20) BUN 11 (9-16) mg/dL Creatinine 0.99 (0.5-1.4) mg/dL Estim Creat Clear Calc 94.8 Estimated GFR > 60 Random Glucose 119 H (60-115) mg/dL Calcium 8.7 (8.4-10.2) mg/dL Total Bilirubin 0.8 (0.0-1.0) mg/dL AST 17 (5-37) U/L ALT 9 (0-40) U/L Alkaline Phosphatase 87 (39-117) U/L Total Protein 6.4 L (6.5-8.0) g/dL Albumin 3.8 (3.5-5.0) g/dL COVID-19 (JESSICA) Negative (Negative) COVID-19 Clin Com See Note Influenza Type A (ELIER) Negative (Negative) Influenza Type B (ELIER) Negative (Negative) Influenza A & B Note See Note Independent Interpretation I performed an independent interpretation of an: CT Scan Interpretation: My interpretation is in agreement with the radiologist's impression of this imaging study. Reason for Exam: pain, bleeding from ear, elevated INR EXAMINATION: CT HEAD WITHOUT CONTRAST CLINICAL INFORMATION: pain, bleeding from ear, elevated INR COMPARISON: CT of the head on December 22, 2022 TECHNIQUE: Contiguous axial imaging was performed from the skull base to vertex without intravenous administration of contrast. This CT examination was performed using dose optimization techniques as appropriate, variously including the following: *Automated exposure control *Adjustment of mA and/or kV according to patient size (this includes techniques or standardized protocols for targeted exams where dose is matched to indication/reason for exam; i.e. extremities or head) *Use of iterative reconstruction technique FINDINGS: Brain parenchyma: No shift of midline structures. No parenchymal hemorrhage, mass effect or evidence of acute territorial infarct. Ventricles/extra-axial spaces: No extra-axial fluid collection. No hydrocephalus. Calvarium/extracranial structures: Hypoaeration of the right mastoid air cells is similar to 2022, but there is new partial opacification of the aerated cells. Small amount of soft tissue density within the right middle ear cavity. Apparent thickening of the right tympanic membrane. The left mastoid air cells and middle ear cavity are unremarkable. Linear densities in the left external auditory canal may represent cerumen. No depressed skull fracture. Stable presumed sebaceous cyst overlying the left parietal bone. Bilateral ocular orbits appear unremarkable. Paranasal sinuses are clear. CT/CT Head for ICH IMPRESSION: 1. No acute intracranial pathology. 2. Partial opacification of the right mastoid air cells, which is chronically hypoaerated compared to the contralateral side. Small amount of soft tissue density within the right middle ear cavity. Apparent thickening of the right tympanic membrane. Findings could represent inflammatory/infectious or posttraumatic changes. Electronically signed by: Rd Marcus MD 04/04/2025 11:48 AM EDT RP Dictated By: Rd Marcus MD Signed By: Electronically signed by Rd Marcus MD 04/04/25 1148 Radiology Impression Discussion of test interpretation with radiology: I have reviewed the radiologist's reading. Independent Historian Clinical information obtained from an independent historian. History obtained from or confirmed by: EMS (EMS provided additional history and confirmed the history provided by the patient. ) Critical Care Time Critical Care Time Critical Care Time: Yes Total Critical Care Time: 34 Attestation: I spent 34 minutes of Critical Care Time with this patient. This does not include time spent on separately reported billable procedures. Discharge Plan Discharge Clinical Impression: Elevated INR, Trigeminal nerve spasm Otitis media Qualifiers: Otitis media type: unspecified Chronicity: acute Qualified Code(s): H66.90 - Otitis media, unspecified, unspecified ear Laceration of ear canal Qualifiers: Encounter type: initial encounter Laterality: right Qualified Code(s): S01.311A - Laceration without foreign body of right ear, initial encounter Patient Disposition: Home, Self-Care Instructions: Trigeminal Neuralgia (ED), Ear Infection (ED), Elevated INR (ED) Additional Instructions: Your work up today was reassuring there is no EMERGENT reason for your right ear canal bleeding. I am suspicious that dry / friable skin was somehow irritated and is causing your bleeding. Do NOT stick anything in your ears. Do NOT scratch at your ears. LEAVE YOUR EARS ALONE. Your INR remains elevated today at 3.4. Continue to hold your Warfarin and follow your coagulation nurses instructions. I could not visualize your ear drum on the right side secondary to the blood and hair in your canal - therefore, I have covered you with an antibiotic for possible / probable infection. Please take it as directed. Follow up with an ENT specialist. Your right sided facial pain is consistent with a right sided trigeminal nerve spasm. IF you are prescribed home medications and/or you are taking over the counter medications at home - it is very important you continue to do so as prescribed / directed unless told otherwise. Follow up with your primary care provider. Return to the emergency department immediately if your symptoms worsen or if you develop any numbness, tingling, dizziness, shortness of breath, difficulty breathing, chest pain, blurry vision, loss of vision, nausea, vomiting, abdominal pain, fever, chills, back pain, or any other complaints. Please see the information below about our Patient Portal. If you are not yet enrolled in the [facility] Patient Portal, you will receive an enrollment email invitation following your visit to any [facility] care setting. You may also self-enroll in the Patient Portal by visiting our website: [email or web address] The following information is required to access the Patient Portal: - Your [facility] Medical Record Number - Your personal home email address (must match what is in your electronic medical record, Registration staff can assist with this) - Name - Date of Capabilities of the Patient Portal: - Message some providers - View upcoming appointments - Access your health summary, medical history, and visit history - View current conditions and allergies - View procedure and lab results - View your medications, including guidelines, side effects, and precautions - Complete pre-appointment questionnaires requested by your provider - Ready summary reports of your office visits and procedures To access the Patient Portal Mobile [employer], follow these directions: - Search Pow[employer]on in the [employer] Store or [employer] Store - Download the Makenzie - Search for [facility] - Enter your login/password Prescriptions: New amoxicillin 875 mg tablet 875 mg PO BID 5 Days Qty: 10 0RF No Action omega-3 fatty acids 500 mg capsule 500 mg PO DAILY acetaminophen 650 mg tablet extended release 1,300 mg PO BID PRN (Reason: Pain) carvedilol 6.25 mg tablet 6.25 mg PO BID Qty: 180 3RF furosemide 20 mg tablet 20 mg PO BID Qty: 180 3RF multivitamin Tablet 1 tab PO DAILY gabapentin 300 mg capsule 300 mg PO FR cholecalciferol (vitamin D3) [Vitamin D3] 25 mcg (1,000 unit) Tablet 50 mcg PO DAILY bupropion HCl 100 mg tablet 100 mg PO TID atorvastatin 10 mg tablet 10 mg PO DAILY digoxin 250 mcg (0.25 mg) tablet 250 mcg PO MOWEFR warfarin 4 mg tablet See Rx Instructions PO .COMPLEX Protocol: Dose Management Condition: Wednesday Dose/Route: 4 mg Instruction: 1 x 4 mg tablet Condition: Wednesday Dose/Route: 0 mg Instruction: 0 tablets Condition: Wednesday Dose/Route: 0 mg Instruction: 0 tablets Condition: Wednesday Dose/Route: 0 mg Instruction: 0 tablets Condition: Dose/Route: 4 mg Instruction: 1 x 4 mg tablet Condition: Wednesday Dose/Route: 2 mg Instruction: 0.5 x 4 mg tablets Condition: Wednesday Dose/Route: 4 mg Instruction: 1 x 4 mg tablet Protocol Text: Adjustment Start Date: Wednesday04/04/25 INR Value: 4.4 INR Date: 04/04/25 Recheck Date: 04/05/25 Additional Instructions: no warfarin today Rx Instructions: 1MG orally 2-4MG DAILY PER INR PER ANTICOAGULATION SERVICES gabapentin 100 mg capsule 100 mg PO MOWESA duloxetine 20 mg capsule,delayed release(DR/EC) 40 mg PO DAILY cetirizine 10 mg tablet 10 mg PO BEDTIME tamsulosin [Flomax] 0.4 mg capsule 0.4 mg PO BEDTIME Qty: 90 0RF risperidone 1 mg tablet 1 mg PO BEDTIME tizanidine 4 mg tablet 4 mg PO BEDTIME Referrals: [facility] [Provider Group, Ear, Nose, Throat] Referral Note: Call to establish and follow up with an ENT specialist. Jaylon Carvajal MD [Primary Care Provider, Internal Medicine] Print Language: Frisian
--- NOTE | 2025-04-04 11:08 | MHC.CM.ED ---
Received notification from [facility] that patient is active with their agency and being sent to the ER due to concern about patient being safe at home. Return referral made in [facility] so agency can follow for d/c needs.
--- NOTE | 2025-04-04 11:15 | MHC.EDTECH ---
Labs delayed due to Pt being in CT. Will draw Pt when he returns.
[2025-04-04 11:51] LABS: Hematocrit 42.8 % (42.0-52.0); Hemoglobin 15.0 g/dl (14.0-18.0); Imm Gran Abs Auto 0.02 X10*3/uL (0.00-0.03); Imm Gran Pct Auto 0.3 % (0.0-0.4); Lymphocytes Absolute Auto 1.7 X10*3/uL (1.2-4.9); MANUAL DIFF FLAG SCAN; Mean Corpuscular HGB Conc 35.0 g/dl (31.0-36.0); Mean Corpuscular Hemoglobin 31.4 pg (27.0-33.0); Mean Corpuscular Volume 89.7 fL (80.0-98.0); NRBC Abs Auto 0.000 X10*3/uL (0.0-0.012); NRBC Pct Auto 0.0 /100WBC (0.0-0.2); PLT CLUMP 1; Red Blood Count 4.77 X10*6/uL (4.60-5.80); SCAN SMEAR FLAG 1
[2025-04-04 11:54] LABS: INTERNATIONAL NORM RATIO 3.4 (0.9-1.1); Prothrombin Time 39.4 SEC (10.9-12.4)
[2025-04-04 12:01] LABS: Alanine Aminotransferase 9 U/L (0-40); Albumin Level 3.8 g/dL (3.5-5.0); Alkaline Phosphatase 87 U/L (39-117); Anion Gap 12 (12-20); Aspartate Amino Transferase 17 U/L (5-37); Blood Urea Nitrogen 11 mg/dL (9-16); Calcium 8.7 mg/dL (8.4-10.2); Carbon Dioxide 29 mmol/L (22-29); Chloride 102 mmol/L (96-108); Creatinine Clr Calc Pharmacy 94.8; Estimated Glomerular Filt Rate > 60; Potassium 3.4 mmol/L (3.3-5.1); Sodium 140 mmol/L (135-145); Total Protein 6.4 g/dL (6.5-8.0)
[2025-04-04 12:05] VITALS: BP 112/53; PULSE 63; RESP 10; TEMP 36.3; O2SAT 98
[2025-04-04 12:12] LABS: White Blood Count 8.0 X10*3/uL (4.8-10.8)
[2025-04-04 12:29] LABS: COVID-19 Test Negative (Negative); IDNOW Serial# 58CA691E
[2025-04-04 12:30] LABS: IDNOW Serial# 55D5AD1C; Influenza B2 Negative (Negative)
[2025-04-04] MEDS: Oxymetazoline HCl 0.05 % Nasal 15 ML SPRAY 2 SPRAY NOSTRIL-B (12:47)
[2025-04-04 14:07] VITALS: BP 106/68; PULSE 75; RESP 18; TEMP 36.4; O2SAT 95
[2025-04-04 14:49] VITALS: BP 106/68; PULSE 75; RESP 18; TEMP 36.4; O2SAT 95
== END 2025-04-04 14:49 | disposition home or self-care (01) ==
PROVIDERS: Physician Assistant Medical; Emergency Provider Emergency Medicine; PCP Internal Medicine
DX: S01.311A Laceration without foreign body of right ear, initial encounter (principal); G51.0 Bell's palsy; H66.90 Otitis media, unspecified, unspecified ear; R79.89 Other specified abnormal findings of blood chemistry; I48.91 Unspecified atrial fibrillation; I25.10 Atherosclerotic heart disease of native coronary artery without angina pectoris; R51.9 Headache, unspecified; X58.XXXA Exposure to other specified factors, initial encounter; Y93.9 Activity, unspecified; Y92.9 Unspecified place or not applicable; Y99.8 Other external cause status; Z11.52 Encounter for screening for COVID-19; Z79.01 Long term (current) use of anticoagulants; Z79.899 Other long term (current) drug therapy; Z87.891 Personal history of nicotine dependence
CPT/HCPCS: 36415; 70450; 80053; 85025; 85610; 87502; 87635; 99283; 99284

== ENCOUNTER → 2025-04-04 11:03 | Outpatient (BNV) | payer MEDICARE, MEDICAID, SELFPAY | PROVIDERS: Emergency Provider Emergency Medicine; PCP Internal Medicine; Visit Provider Radiology Body Imaging | DX: H70.11 Chronic mastoiditis, right ear (principal) | CPT/HCPCS: 70450 ==

== ENCOUNTER 2025-06-29 00:08 | Emergency (ER) | payer MEDICARE, SELFPAY ==
--- NOTE | 2025-06-29 | ECG_ITS ---
Test Reason : CP Blood Pressure : */* mmHG Vent. Rate : 100 BPM Atrial Rate : * BPM P-R Int : * ms QRS Dur : 98 ms QT Int : 364 ms P-R-T Axes : * -40 92 degrees QTcB Int : 469 ms Atrial fibrillation Left axis deviation Septal infarct (cited on or before 06-Dec-2024) Abnormal ECG When compared with ECG of 06-Dec-2024 19:51, Questionable change in initial forces of Septal leads Referred By: Generic ED Physician Electronically Signed By: ELIE LAURENT MD
--- NOTE | ~2025-06-29 | XR_ITS ---
CLINICAL HISTORY: pleuritic chest pain 2 view chest x-ray Comparison: Chest x-ray from 12/05/2024 Findings: No lobar consolidation. Mild bibasilar atelectasis/pneumonitis. Relative improved aeration of the both lungs compared to 12/05/2024. Mild emphysematous changes suggested. Imaged mediastinum appears unchanged accounting for differences in technique. Degenerative changes include imaged shoulders, imaged AC joints, and imaged spine. Bridging osteophytes noted with a partial obscuration of the vertebrae. Mild imaged rib deformities appear old/chronic. IMPRESSION: Mild bibasilar atelectasis/pneumonitis. This document has been electronically signed by: Arun Esposito MD on 06/29/2025 02:22:53
--- NOTE | 2025-06-29 00:28 | ED.GENADULT ---
HPI - General Adult General Chief complaint: Chest Pain Stated complaint: CP X1H PER EMS Time Seen by Provider: 06/29/25 00:18 History of Present Illness ED Provider: Helene NIXON narrative: The patient is a 74-year-old male with a history of atrial fibrillation on warfarin. He also has a history of heart failure with reduced ejection fraction, history of obstructive sleep apnea on CPAP, COPD, coronary artery disease, hyperlipidemia, hypertension, type 2 diabetes, covering myopathy, and a history of pleuritic chest pain. The patient lives alone in his own apartment in an elderly housing complex in [place]. He says that he lives on the 3rd floor. He says the [facility] does not have elevators. He says that he does not drive and has difficulty getting rides when he needs to travel. He says that he is supposed to get his prescriptions delivered but he has been out of many of his regular prescriptions for the last 3 or 4 days. He says he has been taking his warfarin. He called an ambulance tonight because he felt a sense of chest pain in his mid chest. He says the pain is worse when he takes a deep breath. He has had no fever, sweats, chills. No cough or sputum. No shortness of breath. No worsening swelling in his legs. He says he has been taking his warfarin. The patient's primary care doctor is Dr. Jaylon Carvajal. He has a history of depression and apparently has received his psychiatric care through [facility]. Related Data Home Medications ?Medication ?Instructions ?Recorded ?Confirmed atorvastatin 10 mg tablet 10 mg PO DAILY 12/05/24 05/31/25 digoxin 250 mcg (0.25 mg) tablet 250 mcg PO MOWEFR 12/05/24 05/31/25 warfarin 4 mg tablet See Rx Instructions PO .COMPLEX 04/02/25 06/18/25 cetirizine 10 mg tablet 10 mg PO DAILY PRN 05/08/25 05/31/25 tizanidine 4 mg tablet 4 mg PO BEDTIME PRN 05/08/25 05/31/25 duloxetine 20 mg capsule,delayed 40 mg PO DAILY 06/18/25 06/18/25 release Previous Rx's ?Medication ?Instructions ?Recorded carvedilol 6.25 mg tablet 6.25 mg PO BID #180 tabs 04/18/25 furosemide 20 mg tablet 20 mg PO BID #180 tabs 12/04/24 tamsulosin 0.4 mg capsule (Flomax) 0.4 mg PO BEDTIME #90 caps 03/22/25 Allergies Allergy/AdvReac Type Severity Reaction Status Date / Time iodine (IODINE) Allergy Intermediate HIVES, Verified 06/29/25 00:42 bloating latex (LATEX) Allergy Intermediate HIVES Verified 06/29/25 00:42 shellfish derived (SHELLFISH Allergy Intermediate ANAPHYLAXIS Verified 06/29/25 00:42 DERIVED) egg Allergy Hives Verified 06/29/25 00:42 lisinopril Allergy Unknown Verified 06/29/25 00:42 Peppers, Green Allergy Hives Verified 06/29/25 00:42 spinach Allergy Hives Verified 06/29/25 00:42 Review of Systems Review of Systems: Yes all other systems are reviewed and are negative [facility] Past Medical History Medical History Heart failure with reduced ejection fraction Chest pain, pleuritic Back pain Dyspnea NOEMI on CPAP COPD (chronic obstructive pulmonary disease) CAD (coronary artery disease) HLD (hyperlipidemia) HTN (hypertension) Diabetes Obstructive sleep apnea Morbid obesity Cardiomyopathy Persistent atrial fibrillation Current use of anticoagulant therapy Surgical History History of knee surgery History of ankle surgery Family History Family History Father HTN (hypertension) Diabetes mellitus Cardiac disease Bone cancer Substance use disorder Mother HTN (hypertension) Lung cancer Social History Social History Household Members: None Housing: Apartment Do you presently have visiting nurse or other home services: No Unable to assess alcohol history related to: Unknown Alcohol intake: never Comment: refusing alarms Patient Tobacco Use Status: Former Tobacco user Years Smoked: 30 yrs Smoked in Last 30 Days: No e-Cigarette/Vaping Use: Never Used Second Hand Smoke Exposure: No Use of substances other than those prescribed or required for medical reasons: No Substance Use Type: Crack/Cocaine Advance Directives: No Advance Directives Information Provided: Yes service: No Current occupational status: retired and disabled Cognitive needs: No Hearing needs: No Vision needs: Yes Physical Exam ED Vital Signs: Vital Signs - 24 hr 06/29/25 00:37 06/29/25 00:43 06/29/25 02:00 Temperature 98.6 F 98.3 F Pulse Rate 97 82 Pulse Rate [Monitor] 95 Respiratory Rate 16 20 Blood Pressure 105/59 L 120/62 Pulse Oximetry 95 96 Oxygen Delivery Method Room Air Room Air 06/29/25 09:01 Temperature Pulse Rate 82 Pulse Rate [Monitor] Respiratory Rate Blood Pressure 120/62 Pulse Oximetry 96 Oxygen Delivery Method BMI result Body Mass Index 44.5 Const Other: The patient is a 74-year-old man who was awake and alert. He was complaining of chest pain that he rated as a 6/10 but he did not appear in any discomfort and he was talking a great deal, almost without interruption. He seemed to looks somewhat chronically ill but not obviously acutely ill. HENMT Other: The face is symmetrical. ?Mucous membranes moist. Eyes Other: Pupils are round equal, conjunctivae are clear, extraocular movements intact Neck Neck: Yes normal visual inspection, Yes full ROM and Yes no JVD Resp Effort & Inspection: normal respiratory effort Auscultation: clear to auscultation bilaterally Cardio Other: The patient has an irregular heart rhythm. It seems irregularly irregular. Heart rate is normal. GI Other: The abdomen is soft and seems nontender. Skin Other: The patient has a venous stasis skin changes of the lower legs. Otherwise the skin is dry and unremarkable. Neuro Other: The patient is awake and alert. He is very talkative. He does not seem in distress. Cranial nerves are grossly intact. He moves his extremities fairly symmetrically and appropriately. No obvious focal neurological deficit. Extrem Other: The patient has some chronic venous stent changes to the the skin of both lower legs. Some chronic mild edema to both lower legs. Course Course Course Narrative: 06/29/25927 BRITTNEY Tapia : Per Allison from , patient will be discharged with VNA services. Observation care revealed that patient does not meet medical necessity for hospitalization. Final disposition discussed with patient. The patient completed observation care at 0929 on 06/29/25. Medications Administered Discontinued Medications Generic Name Dose Route Start Last Admin Trade Name Freq PRN Reason Stop Dose Admin Acetaminophen 1,000 mg in 100 mls @ 400 mls/hr 06/29/25 01:09 06/29/25 03:35 Ofirmev IV 12/12/25 01:23 Infused ONCE ONE Infusion Medical Decision Making Medical Decision Making [facility] Narrative: The patient is a 74-year-old male with a history of permanent atrial fibrillation and a history of a cardiomyopathy. He also has a history of depression. He lives alone in his own apartment in an elderly housing complex. He says he lives on the 3rd floor and that there were no elevators. He also says that he does not drive and he has no family members who can help him. This makes him feel very isolated and it makes it difficult for him to get his medications. He says that he has not been able to get his medications recently and that the only medication he has been taking consistently his his warfarin. He says he has not been taking other cardiac medications and he has not been psychiatric medications. The patient arrived complaining of what seemed to be some degree of pleuritic chest discomfort. He did not look particularly ill. His EKG shows atrial fibrillation which is chronic for him. My overall impression was that he did not seem to have any acutely dangerous process. He looked well. His lungs sound clear. His CBC is unremarkable with a white count of 9.5, hemoglobin 14.4, platelet count 290, differential unremarkable. Chemistries show a BUN of 25 but are otherwise unremarkable. The patient is to troponins which are normal and unchanged, 17.9, and 18.4. ProBNP minimally elevated at 366 CRP normal at 0.13 INR is somewhat subtherapeutic at 1.6. D-dimer is normal at 208. Chest x-ray was read as showing possible bibasilar atelectasis/pneumonitis. The patient does not seem ill. I do not think he has any lung infection. I suspect that he has some degree of mild atelectasis. The patient has pain seemed to resolve spontaneously in the emergency room. Overall my suspicion for any acutely dangerous process was very low. The patient seems to be very talkative. He also seems to be fairly isolated. I suspect there is some degree of anxiety in the patient's presentation. My overall impression is that the patient does not require any further medical evaluation. However the patient perseverated about his isolation with regard to his ability to get to doctor's visits and to stay compliant with his medications. Given that the patient seems to be describing significant problems with the access to medications I think it would be reasonable to keep this somewhat disabled 74-year-old in the emergency room to speak with case management about what services might be offered to help him maintain medication compliance. Lab Data 06/29/25 00:49 06/29/25 00:49 Labs: Lab Results 06/29/25 06/29/25 06/29/25 Range/Units 00:45 00:49 01:54 WBC 9.5 (4.8-10.8) X10*3/uL RBC 4.66 (4.60-5.80) X10*6/uL Hgb 14.4 (14.0-18.0) g/dl Hct 42.5 (42.0-52.0) % MCV 91.2 (80.0-98.0) fL MCH 30.9 (27.0-33.0) pg MCHC 33.9 (31.0-36.0) g/dl RDW 12.4 (11.0-16.0) % Plt Count 290 D (160-400) X10*3/uL MPV 10.4 (9.4-12.4) fL Immature Gran % (Auto) 0.4 (0.0-0.4) % Neut % (Auto) 67.7 (45-73) % Lymph % (Auto) 23.5 (20-40) % Taliaferro % (Auto) 6.3 (2-11) % Eos % (Auto) 1.4 (0-4) % Baso % (Auto) 0.7 (0-2) % Lymph # (Auto) 2.2 (1.2-4.9) X10*3/uL Taliaferro # (Auto) 0.6 (0.1-1.2) X10*3/uL Eos # (Auto) 0.1 (0.0-0.4) X10*3/uL Baso # (Auto) 0.1 (0.0-0.2) X10*3/uL Abs Immat Gran (auto) 0.04 H (0.00-0.03) X10*3/uL Absolute Neuts (auto) 6.4 (2.0-8.3) x10*3/uL Absolute Nucleated RBC 0.000 (0.0-0.012) X10*3/uL Nucleated RBC % (auto) 0.0 (0.0-0.2) /100WBC PT 19.0 H (11.2-13.5) SEC INR 1.6 H (0.9-1.1) D-Dimer High Sensitivty 208 NG/ML Sodium 136 (135-145) mmol/L Potassium 3.9 (3.3-5.1) mmol/L Chloride 100 (96-108) mmol/L Carbon Dioxide 27 (22-29) mmol/L Anion Gap 13 (12-20) BUN 25 H (9-16) mg/dL Creatinine 0.86 (0.5-1.4) mg/dL Estim Creat Clear Calc 106.5 Estimated GFR > 60 Random Glucose 169 H (60-115) mg/dL Calcium 8.9 (8.4-10.2) mg/dL Magnesium 2.4 (1.6-2.6) mg/dL Total Bilirubin 0.4 (0.0-1.0) mg/dL Direct Bilirubin 0.2 (0.0-0.5) mg/dL AST 21 (5-37) U/L ALT 11 (0-40) U/L Alkaline Phosphatase 85 (39-117) U/L Troponin I High Sens 17.9 18.4 (<3.5-35.0) ng/L C-Reactive Protein 0.13 (< or = 0.50) mg/dL NT-Pro-B Natriuret Pep 366.3 H (<300) pg/mL Total Protein 6.4 L (6.5-8.0) g/dL Albumin 3.9 (3.5-5.0) g/dL Ethyl Alcohol < 10 mg/dL Influenza Type A (PCR) NEGATIVE (Negative) Influenza Type B (PCR) NEGATIVE (Negative) RSV RNA Qual (PCR) NEGATIVE (Negative) SARS-CoV-2 RNA (RT-PCR) NEGATIVE (Negative) Independent Interpretation I performed an independent interpretation of an: EKG Interpretation: EKG at 00:20 shows atrial fibrillation at 100 beats per minute. No definite acute ischemic changes. Discharge Plan Discharge Clinical Impression: Chest pain Patient Disposition: Home, Self-Care Instructions: Chest Pain (DC) Additional Instructions: You were evaluated in the emergency department today for chest pain. 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 You are being discharged home with VNA services to assist you with your medications. Please schedule an appointment for follow-up with your primary care physician this week. Return to the emergency department if you experience worsening or uncontrolled chest pain, shortness of breath, lightheadedness, feeling faint, loss of consciousness, nausea, vomiting, or any other concerning symptoms. Prescriptions: No Action carvedilol 6.25 mg tablet 6.25 mg PO BID Qty: 180 3RF furosemide 20 mg tablet 20 mg PO BID Qty: 180 3RF cetirizine 10 mg tablet 10 mg PO DAILY PRN tizanidine 4 mg tablet 4 mg PO BEDTIME PRN atorvastatin 10 mg tablet 10 mg PO DAILY digoxin 250 mcg (0.25 mg) tablet 250 mcg PO MOWEFR warfarin 4 mg tablet See Rx Instructions PO .COMPLEX Protocol: Dose Management Condition: Wednesday (Week One) Dose/Route: 2 mg Instruction: 0.5 x 4 mg tablets Condition: Wednesday Dose/Route: 4 mg Instruction: 1 x 4 mg tablet Condition: Wednesday Dose/Route: 2 mg Instruction: 0.5 x 4 mg tablets Condition: Wednesday Dose/Route: 4 mg Instruction: 1 x 4 mg tablet Condition: Dose/Route: 2 mg Instruction: 0.5 x 4 mg tablets Condition: Wednesday Dose/Route: 4 mg Instruction: 1 x 4 mg tablet Condition: Wednesday Dose/Route: 4 mg Instruction: 1 x 4 mg tablet Condition: Wednesday (Week Two) Dose/Route: 2 mg Instruction: 0.5 x 4 mg tablets Condition: Wednesday Dose/Route: 4 mg Instruction: 1 x 4 mg tablet Condition: Wednesday Dose/Route: 2 mg Instruction: 0.5 x 4 mg tablets Condition: Wednesday Dose/Route: 4 mg Instruction: 1 x 4 mg tablet Condition: Dose/Route: 2 mg Instruction: 0.5 x 4 mg tablets Condition: Wednesday Dose/Route: 4 mg Instruction: 1 x 4 mg tablet Condition: Wednesday Dose/Route: 4 mg Instruction: 1 x 4 mg tablet Protocol Text: Adjustment Start Date: Wednesday06/18/25 INR Value: 2.1 INR Date: 06/18/25 Recheck Date: 07/02/25 Additional Instructions: CONT SAME DOSING Rx Instructions: 1MG orally 2-4MG DAILY PER INR PER ANTICOAGULATION SERVICES tamsulosin [Flomax] 0.4 mg capsule 0.4 mg PO BEDTIME Qty: 90 0RF duloxetine 20 mg capsule,delayed release(DR/EC) 40 mg PO DAILY Print Language: Wolof
[2025-06-29 00:37] VITALS: BP 105/59; BP 95/45; PULSE 88; PULSE 97; RESP 16; TEMP 37; O2SAT 95; BMI 44.5
[2025-06-29 00:43] VITALS: PULSE 95
[2025-06-29 00:54] LABS: MANUAL DIFF FLAG NO
[2025-06-29 00:59] LABS: Hematocrit 42.5 % (42.0-52.0); Hemoglobin 14.4 g/dl (14.0-18.0); Imm Gran Abs Auto 0.04 X10*3/uL (0.00-0.03); Imm Gran Pct Auto 0.4 % (0.0-0.4); Lymphocytes Absolute Auto 2.2 X10*3/uL (1.2-4.9); Mean Corpuscular HGB Conc 33.9 g/dl (31.0-36.0); Mean Corpuscular Hemoglobin 30.9 pg (27.0-33.0); Mean Corpuscular Volume 91.2 fL (80.0-98.0); NRBC Abs Auto 0.000 X10*3/uL (0.0-0.012); NRBC Pct Auto 0.0 /100WBC (0.0-0.2); Platelet Count 290 X10*3/uL (160-400); Red Blood Count 4.66 X10*6/uL (4.60-5.80); White Blood Count 9.5 X10*3/uL (4.8-10.8)
[2025-06-29 01:01] LABS: INTERNATIONAL NORM RATIO 1.6 (0.9-1.1); Prothrombin Time 19.0 SEC (11.2-13.5)
--- OUTSIDE RECORDS SUMMARY | 2025-06-29 01:07 | XMS_ITS | Encounter Summary ---
Author Organization [facility] Address [address] [place] [address] Phone Care Team Providers Care Paid Search Marketing Analyst Name Role Phone Jaylon Carvajal MD Primary Care Provider [phone] Encounter Details Date Type Department Care Team (Late st Contact Info) Description 09/13/2018 Transcribe Orders [facility] Specimen Processing [address] [place], [place] [id number] Joo Oswald MD [address], [address] [place] [address] [email or web address] Atrial fibrillation, unspecified type (Primary Dx) Social [...] EST) PT 30.5(H) 10.2 - 12.9 sec [facility] INR 2.7(H) 0.9 - 1.1 [facility] Comment:Therapeutic range fo r oral Vitamin K antagonists: 2.0-3.5 Blood 09/13/2018 5:50 AM EST 09/13/2018 7:43 AM EST us Joo Oswald MD LAB BLOOD BKR ORDERABLES Final R esult [facility] [address] [place] [address] documented in this encounter Visit Diagnoses Diagnosis Atrial fibrillation, unspecified type- Primary documented in this encounter Care Teams Paid Search Marketing Analyst Relationship Specialty Start Date End Date Jaylon Carvajal MD [address] [place] [address] PCP - General Internal Medicine 09/10/18 documented as of this encounter Additional Source Comments The information contained in this document represents components of the legal health record. It is not the complete legal health record.[facility]
--- OUTSIDE RECORDS SUMMARY | 2025-06-29 01:07 | XMS_ITS | Patient Health Record ---
Author Organization [facility] Address [address] [place] [address] Care Team Providers Care Utility Technician Name Role Phone Wie MARTINEZ, [facility] Primary Care Provider Momo Leon [phone] Allergies Allergen (clinical drug ingredient) Drug/Non Drug Allergy documented on EMR Reaction Allergy Type Onset Date Status Iodine Unknown Drug Allergy Active Latex Gloves Unknown Drug Allergy Acti ve Reason For Referral No Information Medications Medication [...] Start Date Coverage End Date MEDICARE OF [place] [address] [place] [address] [id number] WEI PULLIAM Self - patient is the insured [employer] [address] [address] [place] [address] [phone] [id number] WEI PULLIAM Self - patient is the insured
--- OUTSIDE RECORDS SUMMARY | 2025-06-29 01:07 | XMS_ITS ---
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 Loomis01/25/24: Denies any dyspnea with exertion. [...] joint pain increased [facility]. [facility] with [facility] as needed for any acute or [...] (do not use for phone, instead use [id number]) [facility] Unspecified atrial fibrillationOther thrombophiliaChronic obstructive pulmonary [...] (do not use for phone, instead use 49063-22) [facility] [place] New patient,40-59min; chronic exacerbation, 2 stable chronic or 1 acute illness add add modifier 95 for video (do not use for phone, instead use 29905-01) [facility] [place] New patient,40-59min; chronic exacerbation, 2 stable chronic or 1 acute illness add add modifier 95 for video (do not use for phone, instead use 82702-42) [facility] [place] New patient,40-59min; chronic exacerbation, 2 stable chronic or 1 acute illness add add modifier 95 for video (do not use for phone, instead use 94710-12) [facility] [place] New patient,40-59min; chronic exacerbation, 2 stable chronic or 1 acute illness add add modifier 95 for video (do not use for phone, instead use 56441-67) [facility] [place]2022 New patient,40-59min; chronic exacerbation, 2 stable chronic or 1 acute illness add add modifier 95 for video (do not use for phone, instead use 43555-76) [facility] [place]2022 New patient,40-59min; chronic exacerbation, 2 stable chronic or 1 acute illness add add modifier 95 for video (do not use for phone, instead use 51949-83) [facility] [place] 07[place]2022 New patient,40-59min; chronic exacerbation, 2 stable chronic or 1 acute illness add add modifier 95 for video (do not use for phone, instead use 86426-31) [facility] [place] 07[place]2022 No Data Available [facility] [place]2022 History of fallingMyalgia, o ther site No Data Available [facility] [place] 08[place]18/2022 Unspecified atrial fibrillationOther thrombophiliaChronic obstructive pulmonary disease, unspecifiedUnspecified disorder of circulatory systemChronic pulmonary embolismHeart failure, unspecifiedCardiomyopathy, unspecifiedMajor depressive disorder, recurrent, in full remissionHyperlipidemia, unspecifiedObstructive sleep apnea (adult) (pediatric)History of fallingMyalgia, other siteMorbid (severe) obesity due to excess caloriesInsomnia, unspecifiedSedative, hypnotic or anxiolytic dependence, uncomplicatedPersonal history of nicotine dependence No Data Available [facility] [place] 10[place]14[place]2022 Other thrombophiliaUnspecifi ed atrial fibrillationChronic obstructive pulmonary disease, unspecifiedUnspecified disorder of circulatory systemChronic pulmonary embolismHeart failure, unspecifiedCardiomyopathy, unspecifiedMajor depressive disorder, recurrent, in full remissionCoagulation defect, unspecifiedHyperlipidemia, unspecifiedObstructive sleep apnea (adult) (pediatric)History of fallingMyalgia, other siteMorbid (severe) obesity due to excess caloriesBody mass index (BMI) 45.0-49.9, adultInsomnia, unspecifiedSedative, hypnotic or anxiolytic dependence, uncomplicated No Data Available [facility]2022 No Data Available [facility] [place] 10[place]2022 No Data Available [facility] [place] 10/[place]2022 No Data Available [facility] [place]2022 No Data Available [facility] [place] 09[place]11/2023 Dizziness and giddinessBody mass index (BMI) 40.0-44.9, adult No Data Available [facility] [place] 09/11/2023 No Data Available [facility] [place] 09/11[place]2023 No Data Available [facility] [place] 09/11[place]2023 No Data Available [facility] [place] 09/[place]2023 No Data Available [facility] [place] 01/25/2024 Other thrombophiliaUnspecifi ed atrial fibrillationOther problems related to medical facilities and other health careChronic obstructive pulmonary disease, unspecifiedChronic pulmonary embolismUnspecified disorder of circulatory systemCardiomyopathy, unspecifiedHeart failure, unspecifiedMajor depressive disorder, recurrent, in full remissionHyperlipidemia, unspecifiedObstructive sleep apnea (adult) (pediatric)History of fallingMyalgia, other siteMorbid (severe) obesity due to excess caloriesBody mass index (BMI) 40.0-44.9, adultInsomnia, unspecified No Data Available [facility] [place] 01/25/2024 No Data Available [facility] [place] 01/25/2024 No Data Available [facility] [place] 01/25/2024 No Data Available [facility] [place] 01/25/2024 No Data Available [facility] [place] 01/25/2024 No Data Available [facility] [place] 01/25/2024 No Data Available [facility] [place] 01/25/2024 No Data Available [facility] [place] 01/25/2024 Vital Signs Date of [...] tive Time Current Smoking Status Former smoker 2025-06-18 2 Sex Male History of Procedures Procedures Service Procedure code Service date Servicing provider Phone# New patient,40-59min; chronic exacerbation, 2 stable chronic or 1 acute illness add add modifier 95 for video (do not use for phone, instead use [id number]) [id number] 2022-07-27 No Data Available No Data Availa [...] le No Data Available No Data Available 12165 2024-01-25 No Data Available No Data Available [...] states he can likely get someone from [facility] warfarin- follows closely with cardio and [...] to discuss with PCP for medications for [facility] usehas been on lorazepam for 5 years [...] states he can likely get someone from [facility] warfarin- follows closely with cardio and [...] 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 Follow-up with [facility] as needed for any acute or [...] PCP for ongoing monitoring and management Sees allocation analyst Dr. 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 Yes, preferred proxy but not named KRISTINEf so, Who? Sister Lorne you have a written Advance Directive? Has Advance DirectiveOther details of discussion: Patient expressed her desire to be DNI code status, he is planning to discuss with PCPToday's plan: Advised patient to discuss wishes with [id number] : AD or surrogate was documented in the medical record.
--- OUTSIDE RECORDS SUMMARY | 2025-06-29 01:07 | XMS_ITS | Data Portability ---
Author Organization [facility] Welcome Funds [facility], Main Office Address [address], [address] [place] [address] Care Team Providers Care Vest Tailor Name Role Phone KULWANT RUEDA - 2ND FLOOR OTHER GARY THORNTON Primary Care Provider Assessment Encounter Date Assessment Date Assessment LastModified by Organization Details LastModified Time 01/11/2025 01/11/2025 45 minutes spent on coordination of discharge. Not available 01/11/2025 10:20:15 Plan of Treatment Reminders Order Date Submit Date Provider Last Modified By Organization Details Last Modified Time Details Appointments None record ed. Lab None record ed. Referral None record ed. Procedures None record ed. Surgeries None record ed. Imaging None record ed. Medication Orders None record ed. Patient TargetsNo targets recorded. Patient InstructionsNo instructions recorded. Reason for Referral None Reported. Problems Name Problem SNOMED Code Status Onset Date Resolution Date Notes Provider Name and Address Organization Details Recorded Time Injury of right knee [id number] 4107 Active 2018 APPLE Bernardo [address] [facility], [address], [place], [address], [facility] [employer] [facility] 9 16:26:33 Cardiomyopa thy 21650818 Active 2018 APPLE Bernardo [address] [facility], [address], [place], [address], [facility] [employer] 9 16:27:43 Moderate chronic obstructive pulmonary disease 212077867 Active 2018 APPLE Bernardo [address] [facility], [address], [place], [address], [facility] [employer] 9 16:27:51 Morbid obesity 492467966 Active 2018 Brittany Ly WO[facility] CH[employer]PER [address] , [address], [place], [address], [facility] 9 16:27:57 Type 2 diabetes mellitus without complicatio n 079950552 Active 2018 Brittany Malachi [facility] [address] , [address], [place], [address], [facility] 9 16:28:26 Mixed hyperlipide keegan 454441074 Active 2018 Brittany APPLE Ly [address] [facility], [address], [place], [address], [facility] 9 16:28:43 Congestive heart failure 26902132 Active 2018 Brittany APPLE Ly [address] [facility], [address], [place], [address], [facility] 9 16:28:55 Essential hypertensio n 97394924 Active 2018 APPLE Bernardo [address] [facility], [address], [place], [address], [facility] 9 16:29:05 Gastroesoph ageal reflux disease without esophagitis 333820662 Active 2018 APPLE Bernardo [address] [facility], [address], [place], [address], [facility] 9 16:30:17 Mixed anxiety and depressive disorder 781057334 Active 2018 APPLE Bernardo [address] [facility], [address], [place], [address], [facility] 9 16:30:26 Chronic atrial fibrillatio n 557547582 Active 2018 APPLE Bernardo [address] [facility], [address], [place], [address], [facility] 9 16:41:16 Acute gastroenter itis 01792288 Active 2018 APPLE Bernardo [address] [facility], [address], [place], [address], [facility] 9 14:26:19 Problem Notes None recorded. Medical Equipment None Reported. Allergies Allergen ID Allergen Name Allergen Category Reaction Reaction Severity Criticality Documentation Date Start Date Code Code System Note Provider Name and Address Organization Details Recorded Time 24943 iodine medicatio n Not available Not available Not available 09/02/2018 5933 RxNorm Brittany Ly, [facility] [address] [facility], [address], [place], [address], [facility] 9 16:24:44 64716 latex environme nt,medica tion Not available Not available Not available 09/02/2018 46124 91 RxNorm MATTHIAS Bernardo[address], [address], [place], [address], [facility] 9 16:24:50 93364 shellfish derived food,medi cation Not available Not available Not available 09/02/2018 APPLE Bernardo [address] [facility], [facility] [address], [place], [address], [facility] 9 16:24:56 86143 egg extract food,medi cation hives other Not available mild unabletoasse 12/07/2024 53936 15 RxNorm Jennifer Banegas NP [address] [place] [address], [address], [place], [address], [facility] 5 08:44:27 41855 lisinopri l medicatio n other Not available unabletoasse 12/07/2024 88098 RxNorm unkno wn Jennifer Banegas NP [address] [facility], [address], [place], [address], [facility] 5 08:44:50 93687 montes pepper food other Not available unabletoasse 12/07/2024 other , unkno wn, green peppe rs Jennifer Banegas NP [address] [facility], [address], [place], [address], [facility] [employer] [facility] 5 08:45:34 91685 spinach extract food other Not available unabletoasse 12/07/2024 22815 76 RxNorm unkno wn Jennifer Banegas NP [address] [facility], [address], [place], [address], [facility] 5 08:45:50 Medications Not known to be on any medication Vitals Date Recorded Body weight Heart rate Respiratory rate Body temperature Oxygen saturation Systolic And Diastolic Provider Name and Address Organization Details Last Updated DateTime 5 049297. 53 g 70 /min 17 /min 97.9 [degF] 99 % 120/72 mm[Hg] Jennifer Banegas NP [address] [facility], [address], [place], [address], [facility] 5 12:18:16 Date Recorded Heart rate Respiratory rate Body temperature Oxygen saturation Systolic And Diastolic Provider Name and Address Organization Details Last Updated DateTime 5 92 /min 16 /min 97.3 [degF] 97 % 126/75 mm[Hg] DAMARIS BOCANEGRA NP [address] [facility], [address], [place], [address], [facility] 5 13:16:17 Date Recorded Body weight Heart rate Respiratory rate Body temperature Oxygen saturation Systolic And Diastolic Provider Name and Address Organization Details Last Updated DateTime 5 352343. 79 g 74 /min 18 /min 97.5 [degF] 100 % 128/70 mm[Hg] Jennifer Banegas NP [address] [facility], [address], [place], [address], [facility] 5 10:34:15 Date Recorded Body weight Heart rate Respiratory rate Body temperature Oxygen saturation Systolic And Diastolic Provider Name and Address Organization Details Last Updated DateTime 5 209992. 79 g 76 /min 17 /min 98.2 [degF] 98 % 146/78 mm[Hg] Jennifer Banegas NP [address] [facility], [address], [place], [address], [facility] 5 18:39:12 Date Recorded Heart rate Respiratory rate Body temperature Oxygen saturation Systolic And Diastolic Provider Name and Address Organization Details Last Updated DateTime 5 80 /min 18 /min 97.9 [degF] 95 % 134/70 mm[Hg] DAMARIS BOCANEGRA, BRITTNEY [address] [facility], [address], [place], [address], [facility] 5 09:45:19 Social History Question Answer Notes LastModified by N-Trig Details LastModified Time Tobacco Smoking Status Former Smoker Not Available [facility] 03:13:21 Do You Have An Advance Directive? No [id number] Information not available 05/14/2020 How Much Tobacco Do You Chew? None [id number] Information not available 05/14/2020 What Is Your Code Status? DNI Information not available 12/07/2024 Do You Have A Medical Power Of Child Care Lead Teacher? No MOLST: CPR Okay, DNI, Okay To Transfer To Hospital, No Dialysis, No Art Nutrition, IVF Okay Information not available 12/07/2024 What Was The Date Of Your Most Recent Tobacco Screening? 12/07/2024 Information not available 12/07/2024 Sex: Male Functional Status Question Answer Note LastModified by N-Trig Details LastModified Time Do you use any illicit or recreational drugs? No states he has never done drugs today. however stated to er in report he used cocaine in aug 2024 and prior hx shows notable crack/cocain e use Information not available 12/07/2024 What is your level of alcohol consumption? None quit 1971 and hasn't drank since Information not available 12/07/2024 Mental Status None recorded. Family History Nothing Reported Notes:mother of lung ca father of lung and or brain ca Medical History No medical history recorded. Immunizations Vaccine Type Date Status Note Provider Nam e and Address Organization Details Recorded Time Td(adult) unspecified formulation 4 completed Alexander nicole [facility] 12/07/2024 11:16:09 Pneumococcal conjugate PCV 13 9 completed Alexander nicole [facility] 12/07/2024 11:16:26 Pneumococcal conjugate PCV 13 0 completed Alexander nicole [facility] 12/07/2024 11:16:31 pneumococcal polysaccharide PPV23 1 completed Alexander So-[facility], [facility] 12/07/2024 11:16:45 influenza, unspecified formulation 0 completed Alexander So-Oseguera null, [facility] 12/07/2024 11:17:47 influenza, unspecified formulation 1 completed Alexander Judah[facility] 12/07/2024 11:17:51 influenza, unspecified formulation 2 completed Alexander Severos-Oseguera null, [facility] 12/07/2024 11:17:56 influenza, unspecified formulation 3 completed [facility] 12/07/2024 11:18:01 SARS-COV-2 (COVID-19) vaccine, UNSPECIFIED 1 completed Alexander Judah-[facility] 12/07/2024 11:18:11 SARS-COV-2 (COVID-19) vaccine, UNSPECIFIED 2 completed Alexander Judah[facility] 12/07/2024 11:18:16 SARS-COV-2 (COVID-19) vaccine, UNSPECIFIED 2 [facility] 12/07/2024 11:18:19 SARS-COV-2 (COVID-19) vaccine, UNSPECIFIED 3 completed Alexander Judah[facility] 12/07/2024 11:18:24 zoster, unspecified formulation 2 completed Alexander Judah[facility] 12/07/2024 11:18:36 Past Encounters Encounter ID Performer Location Encounter Start Date Encounter Closed Date Diagnosis/Indication Diagnosis SNOMED-CT Code Diagnosis ICD10 Code Diagnosis IMO Codes Diagnosis Note [id number] APPLE Bernardo AT [address] [address] 09/02/2018 15:56:34 09/06/2018 16:08:53 Injury of right knee 1503697457 0620080 S89.91XD see hpiPT OT for conditioni ng and mobilitymo nitor right kneedc tramadolox ycodone 5 mg 1-2 q 6 hrs prn mod-severe painmonito r pain relief, bowelsadde d colace 100 mg bid and senna 8.6 mg qhs Moderate c hronic obstructive pulmonary disease 015074052 J44.9 asmanex inhaler bidpro air prnmonitor resp status Type 2 shekhar betes mellitus without complication 685803313 E11.9 glipizide 5 mg qdmonitor FBS with labs Mixed hyperlipidemia 267 919369 E78.2 lipitor 10 mg qhs Congestive heart failure 41969060 I50.9 coreg 12.5 mg bidlisinop ril 20 mg qdlasix 40 mg qdmonitor fluid status Essential hypertension 27044498 I10 meds as abovemonit or bp and labs Gastroesop hageal reflux disease without esophagitis 577554479 K21.9 omeprazole 20 mg qdmonitor for sx relief Mixed anxi ety and depressive disorder 610173181 F41.8 zoloft 100 mg qdativan 2 mg qhs Chronic at rial fibrillation 217751821 I48.2 hold coumadin tonightres ume 4 mg tomorrow and check INR on 09/05amioda enrico 200 mg qdmonitor and adjust coumadinco reg for rate controlmon itor heart rate, bleeding [id number] Joo Oswald MD [facility] AT [address] [address] 09/04/2018 11:45:11 09/13/2018 08:29:06 Pain in right knee 7571837096 40516 M25.561 knee pain s/p fallno fracturePT OT eval and treatmonit or for pain controlort ho eval prn Unsteady gait 530257867 R26.81 PT OT eval and treatmonit or for fall risk Chronic at rial fibrillation 286554723 I48.2 amiodarone 200 mg qdcoreg 12.5 mg bidmonitor and adjust coumadinmo nitor for rate control Congestive heart failure 27069915 I50.22 lasix 40 mg qdmonitor weights and respirator y statustitr ate prnmonitor renal function Essential hypertension 83158161 I10 lasix 40 mg qdlisinopr il 20 mg qdcoreg 12.5 mg bidmonitor bp Gastroesop hageal reflux disease without esophagitis 837442424 K21.9 omeprazole 20 mg qdmonitor for sx control [id number] Betty SOARESLEY AT [address] [address] 09/07/2018 13:09:24 09/13/2018 10:27:03 Pain in right knee 5702252852 83131 M25.561 knee pain s/p fallno fracturePT OT eval and treatmonit or for pain control.or hto eval prn Pt is unable to bear weight on right lower extremity, nor does he have ROM necessary for adequate transfer from bed to stand. Discussed with pt concern for safety when d/c to home next week, as pt is at high risk for falls. Recommenda tions are for hospital bed in the home to maintain safety and reduce falls risk. Pt does not need adjustable head or foot of bed, just overall height to move up and down so that pt may transfer safely. Pt is morbidly obese 400+ lbs, so oversized bed is imperative . Unsteady gait 942084576 R26.81 PT OT eval and treatmonit or for fall risk Chronic at rial fibrillation 450435000 I48.2 amiodarone 200 mg qdcoreg 12.5 mg bidmonitor and adjust coumadinmo nitor for rate control Congestive heart failure 20359917 I50.22 lasix 40 mg qdmonitor weights and respirator y statustitr ate prnmonitor renal function Essential hypertension 27294854 I10 BP at goallasix 40 mg qdlisinopr il 20 mg qdcoreg 12.5 mg bidmonitor bp Gastroesop hageal reflux disease without esophagitis 532401549 K21.9 omeprazole 20 mg qdmonitor for sx control [id number] APPLE Bernardo AT [address] [address] 09/08/2018 14:19:49 09/13/2018 14:40:04 Injury of right knee 5413228580 9796716 S89.91XD I explained to pt that the edema and bruising will migrate down to ankle so edema and ecchymosis in right ankle is expected. however pain at the back of the calf is concerning for DVT so will order venous dopplercon tinue PT OT for conditioni ng and mobilitymo nitor right kneeoxycod one 5 mg 1-2 q 6 hrs prn mod-severe painmonito r pain relief, bowelscola ce 100 mg bid and senna 8.6 mg qhs Acute gastroenteritis 69 903701 K52.9 imodium 2 mg 1 prn loose stool max 8/dayzofra n 4 mg 1 q 6 hrs prnencoura ged clear liquids till no vomiting or diarrhea [id number] KASHIF SOAR[place] AT [address] [address] 09/10/2018 09:51:50 09/13/2018 15:22:55 Injury of right knee 0165016539 9428690 S89.91XD venous doppler and xray of right knee were negativeAd d xray of ankle to rule out fracture or trauma to hardware hold PT OT until wednesdayAdd keflex 500 mg q 6 hours x 7 days due to concern for cellulitis Add culturelle cap BID x 10 daysmonito r right knee wound, dressing dailyoxyco done 5 mg 1-2 q 6 hrs prn mod-severe paincolace 100 mg bid and senna 8.6 mg qhs [id number] Betty Susana VANESSA AT [address] [address] 09/12/2018 13:21:59 09/20/2018 12:43:19 Pain in right knee 8039713564 86386 M25.561 knee pain s/p fallno fracturef/ u outpatient Unsteady gait 778267760 R26.81 f/u outpatient Chronic at rial fibrillation 611340730 I48.2 amiodarone 200 mg qdcoreg 12.5 mg bidf/u outpatient Congestive heart failure 64165923 I50.22 lasix 40 mg qdf.u outpatient Essential hypertension 34939537 I10 lasix 40 mg qdlisinopr il 20 mg qdcoreg 12.5 mg bidf/u outpatient Gastroesop hageal reflux disease without esophagitis 155908413 K21.9 omeprazole 20 mg qdf/u outpatient Injury of right knee 277 5626489 8505131 S89.91XD venous doppler and xray of right knee were negativexr ay of ankle negative- rule out fracture or trauma to hardwareke flex 500 mg q 6 hours x 7 days due to concern for cellulitis culturelle cap BID x 10 daysmonito r right knee wound, dressing dailyoxyco done 5 mg 1-2 q 6 hrs prn mod-severe paincolace 100 mg bid and senna 8.6 mg qhsf/u outpatient [id number] Jennifer Banegas NP [address] [address] 12/07/2024 08:07:47 12/20/2024 08:17:50 Unsteady gait 786656616 R26.81 hx of knee pain in past with recent fallsPT OT eval and treatassis ting devices prnmonitor for fall risk Congestive heart failure 42359598 I50.22 lasix 20 mg bimonitor weights and respirator y statustitr ate prnmonitor renal function Essential hypertension 07826877 I10 lasix 20 mg bidcoreg 6.25mg bidmonitor bp Gastroesop hageal reflux disease without esophagitis 263926468 K21.9 no on medsmonito r for sx control Moderate c hronic obstructive pulmonary disease 129689666 J44.9 hx ofnot on meds for thismonito r resp status Type 2 shekhar betes mellitus without complication 663980715 E11.9 not on meds for thismonito r prn Mixed hyperlipidemia 267 894493 E78.2 lipitor 10 mg qhs Mixed anxi ety and depressive disorder 793713983 F41.8 bupropion 100 mg po tidduloxet ine 40 mg po qdrisperid one 1 mg po qhsmonitor Longstandi ng persistent atrial fibrillation 987250097 I48.11 51050818 on warfarin with suprathera peutic inr at 7.4 in hospital(w as on m w 4mg, t, , wedd, sat, sun 2mg) consider restarting when level <3.0coreg 6/25 mg biddigoxin 250 mcg wed and tor and adjust coumadinmo nitor for rate controldig level prn (last in er <0.4)monit or inr daily as labs is able and adjust, monitor for restart Pain 11332989 R52 976522 tyl 1300 mg po bid prn pain(home dose)gabap entin 100 mg , , wed, 300mg po q fridaymoni tor Finding of hand region 413376969 R25.1 45170102 hx of long standing tremor per pthe states risperdol helps with his tremormoni tor for withdrawal symptoms or need to start/adju st meds Morbid obesity 017931929 E66.01 grocery caddy to eval and treatmonit or weights weekly Forgetful 28651538 R68.8 9 938550 seems to be mildly forgetful at times or diff rememberin g events and sequence, does do well on bims todaybims monit or for need to invokework up in hosp nonacutemo nitor Internatio nal normalized ratio above reference range 570259464 R79.1 1224475 on warfarin with suprathera peutic inr at 7.4 in hospital(w as on m w 4mg, t, th, frid, sat, sun 2mg) consider restarting when level <3.0monito r inr daily as labs is able and adjust, monitor for restart Recurrent falls 28452832 2 R29.6 7442418 states recurrent falls and balance issuesmoni tor orthostati c bps qd x 3 dayssuppor tive carept/ot treat and evalmonito r [id number] Jennifer Banegas NP [address] [address] 12/15/2024 10:20:49 12/20/2024 09:55:47 Unsteady gait 573814260 R26.81 hx of knee pain in past with recent fallsPT OT eval and treatassis ting devices prnmonitor for fall riskpt ot to eval if cane is needed, pt lost cane per report today Longstandi ng persistent atrial fibrillation 226062836 I48.11 11173922 on warfarin with suprathera peutic inr at 7.4 in hospital(w as on m w 4mg, t, th, frid, sat, sun 2mg) consider restarting when level <3.0coreg 6/25 mg biddigoxin 250 mcg wed and wednesdaymoni tor and adjust coumadinmo nitor for rate controldig level prn (last in er <0.4)-cbc bmp dig pt/inr ordered for wednesday Internatio nal normalized ratio above reference range 785006705 R79.1 4223626 on warfarin with suprathera peutic inr at 7.4 in hospital(w as on m w 4mg, , , , sat, sun 2mg)restar marialuisa on 12/12 for inr of 1.8 at 2mg po qdINR pending 12/15 and adjust as neededmoni tor inr daily as labs is able and adjust Congestive heart failure 71434337 I50.22 lasix 20 mg bimonitor weights and respirator y statustitr ate prnmonitor renal function Essential hypertension 95838756 I10 bp stablecont lasix 20 mg bidcoreg 6.25mg bidmonitor bp Mixed anxi ety and depressive disorder 367056566 F41.8 bupropion 100 mg po tidduloxet ine 40 mg po qdrisperid one 1 mg po qhsmonitor Pain 20011244 R52 106289 tyl 1300 mg po bid prn pain(home dose)gabap entin 100 mg , , wed, 300mg po q wednesdaymoni tor Finding of hand region 852385371 R25.1 67639750 hx of long standing tremor per pthe states risperdol helps with his tremormoni tor for withdrawal symptoms or need to start/adju st meds Morbid obesity 627858247 E66.01 grocery caddy to eval and treatmonit or weights weekly Forgetful 40476540 R68.8 9 774502 seems to be mildly forgetful at times or diff rememberin g events and sequence, does do well on bims todaybims monit or for need to invokework up in hosp nonacutemo nitor Recurrent falls 60822986 2 R29.6 4405729 states recurrent falls and balance issuesmoni tor orthostati c bps qd x 3 dayssuppor tive carept/ot treat and evalmonito r Sore throat 325041062 J0 2.9 21281 12/14 reports sore throat today-salt water gargles prn-cepaco l lozenges prn- covid swabmonito r vitals Diarrhea 99734361 R19.7 37770040 monitor loose stools, started overnight- cdiff, ova and parasites- immodium prn-zofran prn-cbc bmp dig pt/inr ordered for wednesday [id number] Joo Oswald MD [facility] [address] [place] [address] 12/16/2024 10:33:07 12/20/2024 10:05:49 Acute hypokalemia 53109950 E87.6 9797 required supplement priorrepea t lytes and monitor need for KClon lasix for chfrepeat labs ordered for iscuss ed with nursing Asthenia 93009407 R53.1 78932 PT OT eval and treatmonit or fall risk and need for increased support in community Impaired cognition 00513 6002 R41.89 828742 prior confusionn ow appears returned to baselinemo nitor level of insight Unsteady gait 458545175 R26.81 recent recurrent fallsthera py to eval and follow Congestive heart failure 53141597 I50.22 lasix 20 mg bidmonitor respirator y and fluid statusrece nt hypokalemi a Essential hypertension 61603505 I10 lasix 20 mg bidcoreg 6.25mg bidmonitor bp and need to titrate Mixed anxi ety and depressive disorder 674485373 F41.8 continue out patient medsrequir ed zyprexa Morbid obesity 972971831 E66.01 dietary eval Paroxysmal atrial fibrillation 352654359 I48.0 65735 suprathera putic in hospitalco reg 6.25 mg biddig 250 mcg m/w/frepea t and monitor INR to titrate dose of coumadindi scussed with nursing to request result of INR apparently drawn yesterdayI NR=1.5 on 12/15coumad in not on MARdiscuss ed with nursing to restart 2 mg qdrecheck INR wednesday [id number] Jennifer Banegas NP [facility] [address] [place] [address] 12/18/2024 12:05:43 12/20/2024 10:45:44 Congestive heart failure 12750010 I50.22 lasix 20 mg bidmonitor respirator y and fluid statusrece nt hypokalemi a Acute hypokalemia 468219 03 E87.6 9797 required supplement priorrepea t lytes and monitor need for KClon lasix for chfrepeat labs 12/18, stable k 3.6discuss ed with nursing Asthenia 60048786 R53.1 71895 seems to be improvingP T OT eval and treatmonit or fall risk and need for increased support in communityi mproving with stability and walking 175 feet with AD. Impaired cognition 66462 6002 R41.89 752364 prior confusion , now appears returned to baseline BIMS but appears to be vague about some detailsmon itor level of insight Unsteady gait 840346286 R26.81 recent recurrent fallsthera py to eval and follow Paroxysmal atrial fibrillation 072343175 I48.0 64177 suprathera putic in hospitalco reg 6.25 mg biddig 250 mcg m/w/fmonit or INR to titrate dose of coumadin on 12/21INR=1.3 on 12/18 ? missed a few doses of coumadin, discussed with nursing to restart 2 mg qd until next INR Essential hypertension 27390832 I10 lasix 20 mg bidcoreg 6.25mg bidmonitor bp and need to titrate Mixed anxi ety and depressive disorder 096199149 F41.8 continue out patient [facility]srequir ed [facility] Morbid obesity 142444642 E66.01 dietary eval Sore throat 769778822 J0 2.9 87969 resolved-s alt water gargles prn-cepaco l lozenges prn- covid swab negmonitor vitals Diarrhea 03226885 R19.7 86550848 resolvedmo nitor loose stools-cdi ff, ova and parasites- immodium prn-zofran prn Pain 11427979 R52 764217 tyl 1300 mg po bid prn pain(home dose)gabap entin 100 mg m, w, sat, 300mg po q wednesdaymoni tor Finding of hand region 738301622 R25.1 75706028 hx of long standing tremor per pthe states risperdol helps with his tremormoni tor for withdrawal symptoms or need to start/adju st meds [id number] DAMARIS BOCANEGRA NP [facility] [address] [place] [address] 12/26/2024 13:13:54 12/27/2024 16:54:27 Asthenia 23377909 R53.1 51564 Generally deconditio nedContinu e PT OT - making gainsGoal is to return home.Monit or need for increased support in community Impaired cognition 84736 6002 R41.89 381990 Appropriat e with conversati on today.Prio r confusion but most recent BIMS 15/15Monit or cognition, level of insight Congestive heart failure 13681604 I50.22 Continue lasix 20 mg bidMonitor VS, weights, labs, CP status for s/s decompensa tion. Acute hypokalemia 081528 03 E87.6 9797 Required supplement priorNot on KCL presentlyR emains on lasixCheck BMP Wednesday along with PT INR, indu. due to recent diarrhea Paroxysmal atrial fibrillation 503390745 I48.0 42961 INR suprathera putic in hospital, now subtherapu tic, 1.2. Question of some missed doses.Cont inue coumadin - increase to 4 mg T, , , and continue 2 mg all other days.INR WednesdayCont inue:coreg 6.25 mg biddig 250 mcg m/w/ Essential hypertension 34882542 I10 VSSContinu e:lasix 20 mg bidcoreg 6.25mg bidmonitor bp and need to titrate Mixed anxi ety and depressive disorder 185472465 F41.8 continue out patient medsrequir ed zyprexa in EDnone at rehab needed so far, no behaviors. Morbid obesity 040172365 E66.01 dietary evalHas lost some weight if readings accurate. Pain 36805629 R52 925391 Currently controlled .Continue: tyl 1300 mg po bid prn pain(home dose)gabap entin 100 mg m, w, wed, 300mg po q wednesdaymoni tor Finding of hand region 671343096 R25.1 91575683 hx of long standing tremor per pthe states risperdol helps with his tremormoni tor for withdrawal symptoms or need to start/adju st meds Acute diarrhea 611624642 R19.7 03704 Apparently an issue in the past.Recur ring today, but pt. blames the food served at lunch.Rest art PRN imodium 2 mg qid prn x 7dMaintain fluidsMoni tor VS, GI sx. closely. [id number] Jennifer Banegas, BRITTNEY [facility] [address] [place] [address] 01/01/2025 10:32:12 01/10/2025 17:09:24 Acute diarrhea 026171634 R19.7 24831 Apparently an issue in the past. resolved over the weekendPRN imodium 2 mg qid prn x 7dMaintain fluidsMoni tor VS, GI sx. closely.la bs stable Asthenia 44633516 R53.1 58067 Generally deconditio nedContinu e PT OT - making gains and working with therapyGomruiel l is to return home.Monit or need for increased support in community Impaired cognition 54289 6002 R41.89 089892 Appropriat e with conversati on today.Prio r confusion but most recent BIMS Monit or cognition, level of insight Congestive heart failure 03824372 I50.22 appears euvolemic weight stableCont inuelasix 20 mg bidMonitor VS, weights, labs, CP status for s/s decompensa tion. Acute hypokalemia 996069 03 E87.6 9797 Required supplement prior, k stable as aboveNot on KCL presentlyR emains on lasixseems stable, will check bmp weekly Paroxysmal atrial fibrillation 104557473 I48.0 81512 INR suprathera putic in hospital, now subtherapu tic, 1.2. Question of some missed doses last weekContin ue coumadin as per home regimen 4 mg T, , , and continue 2 mg all other days.INR ontinue:co reg 6.25 mg biddig 250 mcg m/w/ Essential hypertension 28965630 I10 VSSContinu e:lasix 20 mg bidcoreg 6.25mg bidmonitor bp and need to titrate Mixed anxi ety and depressive disorder 927745744 F41.8 hsa been stable herecontin ue out patient medsrequir ed zyprexa in ED prior to admitnone at rehab needed so far, no behaviors. Morbid obesity 329715057 E66.01 dietary evalHas lost some weight if readings accurate. Pain 57681112 R52 859253 Currently controlled .Continue: tyl 1300 mg po bid prn pain(home dose)gabap entin 100 mg m, w, wed, 300mg po q wednesdaymoni tor Finding of hand region 535810529 R25.1 57784400 hx of long standing tremor per pthe states risperdol helps with his tremormoni tor for withdrawal symptoms or need to start/adju st meds Insomnia 833863690 G47.0 0 23318660 difficulty sleeping here lately01/01 start melatonin 5mg po qhsmonitor e [id number] Jennifer Banegas, BRITTNEY [facility] [address] [place] [address] 01/10/2025 09:20:38 01/11/2025 10:46:04 Insomnia 399405041 G47.00 88741016 cont melatonin 5mg po qhs, started last week with effectmoni tor Asthenia 88098723 R53.1 77042 making gains and working with therapy now walking without assistive devicesGoa l is to return home.Monit or need for increased support in community Paroxysmal atrial fibrillation 342744563 I48.0 42728 INR suprathera putic in hospital, now subtherapu tic, 1.5.admini stration summary shows he is getting doses01/10 due to low inr 1.5 will give 6 mg po x 2 days total and then continue coumadin as per home regimen 4 mg T, , , and continue 2 mg all other daysINR wednesdayCont inue:coreg 6.25 mg biddig 250 mcg m/w/f Impaired cognition 59132 6002 R41.89 978986 Appropriat e with conversati on today.Prio r confusion resolving, but most recent BIMS Monit or cognition, level of insight Congestive heart failure 31975419 I50.22 appears euvolemic weight stableCont inuelasix 20 mg bidMonitor VS, weights, labs, CP status for s/s decompensa tion. Acute hypokalemia 535089 03 E87.6 9797 Required supplement prior, k stable as aboveNot on KCL presentlyR emains on lasixseems stable, will check bmp weekly Essential hypertension 01712912 I10 bp stableCont inue:lasix 20 mg bidcoreg 6.25mg bidmonitor bp and need to titrate Mixed anxi ety and depressive disorder 247843134 F41.8 hsa been stable herecontin ue out patient medsrequir ed zyprexa in ED prior to admitnone at rehab needed so far, no behaviors. Morbid obesity 089670220 E66.01 dietary evalHas lost some weight if readings accurate. Pain 68069681 R52 410773 Currently controlled .Continue: tyl 1300 mg po bid prn pain(home dose)gabap entin 100 mg , , wed, 300mg po q wednesdaymoni tor Finding of hand region 830123954 R25.1 60224395 hx of long standing tremor per pthe states risperdol helps with his tremormoni tor for withdrawal symptoms or need to start/adju st med 382307 DAMARIS BOCANEGRA NP [facility] [address] [place] [address] 01/11/2025 09:44:15 01/15/2025 13:43:09 Paroxysmal atrial fibrillation 767113835 I48.0 31169 INR suprathera putic in hospital, now subtherapu tic, 1.5.Given coumadin 6 mg 01/10 and 01/11, INR check 01/12.On d/c, recommend Coumadin 4 mg 4xwk and 2 mg q MWF.Check INR x 1 next week (12/17 or 12/18) with results to PCP for further dosing.Con tinue coreg 6.25 mg bid and dig 250 mcg q // for rate control. Insomnia 595684894 G47.0 0 71323453 cont melatonin 5mg po qhs, started last week with effectmoni tor need as outpt.susp ect will sleep better once he is back on CPAP. Asthenia 52059690 R53.1 74510 making gains and working with therapy - meeting goals for d/c home with support of family and services on 01/12.Monit or need for increased support in community Impaired cognition 87262 6002 R41.89 764311 Appropriat e with conversati on today.Prio r confusion resolving, most recent BIMS Monit or cognition, level of insight as outpt. Congestive heart failure 87142521 I50.22 appears euvolemic weight stableCont inuelasix 20 mg bidMonitor VS, weights, labs, CP status for s/s decompensa tion as outpt. Acute hypokalemia 425051 03 E87.6 9797 Required supplement prior, k now stableNot on KCL presentlyR emains on lasixFollo w as outpt. Essential hypertension 74032798 I10 bp stableCont inue:lasix 20 mg bidcoreg 6.25mg bidmonitor bp and need to titrate as outpt. Mixed anxi ety and depressive disorder 788766990 F41.8 hsa been stable herecontin ue out patient medsrequir ed zyprexa in ED prior to admitnone at rehab needed, no behaviors. Morbid obesity 168046309 E66.01 dietary evalHas lost some weight if readings accurate. Pain 05874230 R52 888813 Currently controlled .Continue: tyl 1300 mg po bid prn pain(home dose)gabap entin 100 mg m, w, sat, 300mg po q wednesdaymoni tor Finding of hand region 431098608 R25.1 21848730 hx of long standing tremor per pthe states risperdal helps with his tremor, continue HS dose Acute diarrhea 781231732 R19.7 16815 Off and on, pt. thinks may be diet related.Ut ilized PRN imodium while hereMainta in fluids as outpt.Shena tor VS, GI sx. Mixed hyperlipidemia 267 817481 E78.2 Continue atorvastat in Moderate c hronic obstructive pulmonary disease 965425002 J44.9 Stable while here Health Concerns Section Related Observation LastModified by Organization Detai ls LastModified Time None Recorded Concern Status LastModified by Organization Details LastModified Time None Recorded Advance Directives Directive N: Payers Insurance Date Sequence Insurance Name Policy Number Policy Kaminski Covered Member ID Kaminski Member ID Guarantor Name 12/07/2024 1 [facility] (MEDICARE REPLACEMENT/A DVANTAGE - PPO) [id number] Misbah Iverson [id number] Misbah Iverson 12/07/2024 1 [place] [employer] Misbah Iverson [id number] Misbah Iverson 12/18/2024 2 [place] Misbah Iverson [id number] Misbah Iverson 12/20/2024 1 [place] [employer] Misbah Iverson [id number] Misbah Iverson Notes Date Note Type Note Provider Name and Address Organization Details Recorded Time 12/18/2024 text/html Pt is seen for an acute rounding visit. PMH: GERD, HLD, COPD, DM, CHF, AFIB on AC, HTN, Morbid obesity, cardiomyopathy, anxiety, depression He is a 74 yo male admit from ED presenting after to ER for weakness in the legs/wobbly and reported falling down, tremors dx with supratherapeutic INR, fall, hypokalemia, and deconditioning rec for rehab and continued care. Noted agitation did require zyprexa. Workup included: cxr, UA, EKG with afib at baseline, cardiac enzymes, CT head and CT spine showed no acute findings. INR elevated at 7.4 and recommended to hold warfarin and recheck daily. dig level 0.4 (normal)He was treated with IV potassium for k of 2.5. Since at [facility]:Misbah reports he is working with rehab. Per last rehab note: Walking 175 feet without AD. Overall, feels balance improving. He reports he is not sure if he getting all his meds and has noone to bring him a list. He is aware he is on list from ER and cannot specifically state which med he is missing today. He is aware of date, time, place and vague about recent details of admission. He states he would like to go back to apartment by Wednesday or this week. 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 On exam, He is sitting up in bed in NAD. Denies any sob, chest pain, or other ailments. States he would like to talk with psych. Denies any cough, congestion or sore throat. Sore throat resolved from last week. Labs reviewed and inr/pt 1.3 on 12/18. Last INR 1.5 on 2mg coumadin qd, however nursing reporting he may have missed a one-two doses of coumadin over the weekend. Due to history of supratherapeutic INR recently will cont 2mg po qd and recheck on 12/21. MOLST: CPR okay, DNI, transfer to hospital, no dialysis, no art nutrition, IVF okayBIMS Jennifer Banegas, BRITTNEY [address], [address], [place], [address], [facility] [employer] 12/18/2024 18:42:46 12/26/2024 text/html Misbah is seen today for an acute visit. PMH: GERD, HLD, COPD, DM, CHF, AFIB on AC, HTN, Morbid obesity, cardiomyopathy, anxiety, depression He is a 74 yo male admitted to [facility] for continued care and rehab after presenting to the ER due to weakness, falls, and tremors. Dx. with supratherapeutic INR, fall, hypokalemia, and deconditioning. Noted agitation did require zyprexa. Workup included: cxr, UA, EKG with afib at baseline, cardiac enzymes, CT head and CT spine showed no acute findings. INR elevated at 7.4 and recommended to hold warfarin and recheck daily. dig level 0.4 (normal)He was treated with IV potassium for k of 2.5. Since admission here, Misbah has been working with rehab, making gains.VSSWeight down yesterday, 291 lbs. Usually +/- 300 lbs.Labs trended - INR subtheraputic despite home dose of coumadin. Question of missing a few doses recently. Upon exam, Misbah is up in his room ad janet. Currently with diarrhea as lunch didn't agree with me . Otherwise he is feeling better - stronger, no increased SOB, cough, CP. Voiding well. No pain. Appetite good. Says he isn't sleeping as well because he doesn't have his CPAP and no one can bring it in from home. MOLST: DNI, no dialysis, no art nutritionBIHI DAMARIS BOCANEGRA, BRITTNEY [address], [address], [place], [address], [facility] [employer] 12/27/2024 12:51:01 01/01/2025 text/html Misbah is seen today for an acute rounding visit. PMH: GERD, HLD, COPD, DM, CHF, AFIB on AC, HTN, Morbid obesity, cardiomyopathy, anxiety, depression Pt is seen for complaint of insomnia due to noise at night. He requests something mild. Agreeable to 5 mg po melatonin. of note; He is a 74 yo male admitted to [facility] for continued care and rehab after presenting to the ER due to weakness, falls, and tremors. Dx. with supratherapeutic INR, fall, hypokalemia, and deconditioning. Noted agitation did require zyprexa. Workup included: cxr, UA, EKG with afib at baseline, cardiac enzymes, CT head and CT spine showed no acute findings. INR elevated at 7.4 and recommended to hold warfarin and recheck daily. dig level 0.4 (normal)He was treated with IV potassium for k of 2.5. INR 1.4 on 12/29, however missed a few doses and restarted on prior regimen. Will recheck on 01/03, Wednesdays and adjust as needed. Will cautiously monitor with recent supratherapeutic iNR. No s/s of bleeding noted. On exam, Misbah is up and walking around today. He is in NAD. He reports he just finished working with therapy. He denies any other concerns and feels good . He is approx the same as last week at 290lbs but overall has lost approx 13 lbs down from 303 lbs. This seems to be a healthy loss. MOLST: DNI, no dialysis, no art nutritionBIMS Jennifer Banegas, BRITTNEY [address], [address], [place], [address], [facility] [employer] 01/01/2025 11:03:24 01/10/2025 text/html Pt is seen today for an acute rounding visit. PMH: GERD, HLD, COPD, DM, CHF, AFIB on AC, HTN, Morbid obesity, cardiomyopathy, anxiety, depression He is a 74 yo male admitted to [facility] for continued care and rehab after presenting to the ER due to weakness, falls, and tremors. Dx. with supratherapeutic INR, fall, hypokalemia, and deconditioning. Noted agitation did require zyprexa. Workup included: cxr, UA, EKG with afib at baseline, cardiac enzymes, CT head and CT spine showed no acute findings. INR elevated at 7.4 and recommended to hold warfarin and recheck daily. dig level 0.4 (normal)He was treated with IV potassium for k of 2.5. INR 1.4 on 12/29, however missed a few doses and restarted on prior regimen. He was cautiously titrated to his prior dosing duet o supratheruapeutic INR, however INR 1.5 today. Will increase coumadin to 6 mg po qd for 2 days and then resume home schedule. Will cautiously monitor with recent supra therapeutic iNR. No s/s of bleeding noted. Recheck on 01/12. He continues to work with therapy. He is now able to ambulate through faciltiy without any AD. He is working on the bike to improve endurance for 25 minutes today. On exam, Misbah is doing well and anticipating going back home soon. He reports he is getting his banking affairs in order. Lungs clear and NAD. MOLST: DNI, no dialysis, no art nutritionBIMS Jennifer Banegas, BRITTNEY [address], [address], [place], [address], [facility] [employer] 01/10/2025 18:56:15 01/11/2025 text/html Misbah is seen today for discharge.He will be leaving 01/12 with plans to stay with his sister for a few days before going home. He is a 74 yo male admitted to [facility] for continued care and rehab after presenting to the ER due to weakness, falls, and tremors. Dx. with supratherapeutic INR, fall, hypokalemia, deconditioning and agitation requiring zyprexa.Workup included: CXR, UA, EKG (afib, baseline) cardiac enzymes, CT head and spine with no acute findings. INR elevated at 7.4, coumadin held. Dig level 0.4. K 2.4, repleted. Since admission here, Misbah has been working with rehab, making gains. Meeting goals for d/c home 01/12 with support of family and services.VSSWeight 290 lbs, stable for the past 3 wks.Labs trended - INR subtheraputic despite home dose of coumadin. INR 01/10 = 1.5, extra 2 mg on coumadin ordered for 2 days with repeat INR 01/12. CBC, BMP stable. Upon exam, Misbah is up in his room ad janet. Feels good, happy to be returning home. Denies any complaints today. Stay here complicated by off and on loose stool. Feeling better - stronger, no increased SOB, cough, CP. Voiding well. No pain. Appetite good. Says he isn't sleeping as well because he doesn't have his CPAP and no one can bring it in from home. MOLST: DNI, no dialysis, no art nutritionBIMS PMH: GERD, HLD, COPD, DM, CHF, AFIB on AC, HTN, Morbid obesity, cardiomyopathy, anxiety, depression DAMARIS BOCANEGRA NP [address] [place] [address], [address], [place], [address], [facility] 01/11/2025 10:22:51
--- OUTSIDE RECORDS SUMMARY | 2025-06-29 01:07 | XMS_ITS | Encounter Summary ---
Author Organization [facility] Address [address] [place] [address] Phone Care Team Providers Care Program Supervisor Name Role Phone Jaylon Carvajal MD Primary Care Provider [phone] Encounter Details Date Type Department Care Team (Late st Contact Info) Description 09/10/2018 Transcribe Orders [facility] Specimen Processing [address] [place], [place] [id number] Joo Oswald MD [address], [address] [place] [address] [email or web address] Atrial fibrillation, unspecified type (Primary Dx) Social [...] EST) PT 33.2(H) 10.2 - 12.9 sec [facility] INR 2.9(H) 0.9 - 1.1 [facility] Comment:Therapeutic range fo r oral Vitamin K antagonists: 2.0-3.5 Blood 09/10/2018 6:23 AM EST 09/10/2018 8:24 AM EST us Joo Oswald MD LAB BLOOD BKR ORDERABLES Final R esult [facility] [address] [place] [address] documented in this encounter Visit Diagnoses Diagnosis Atrial fibrillation, unspecified type- Primary documented in this encounter Care Teams Program Supervisor Relationship Specialty Start Date End Date Jaylon Carvajal MD [address] [place] [address] PCP - General Internal Medicine 09/10/18 documented as of this encounter Additional Source Comments The information contained in this document represents components of the legal health record. It is not the complete legal health record.[facility]
[2025-06-29 01:09] LABS: Alanine Aminotransferase 11 U/L (0-40); Albumin Level 3.9 g/dL (3.5-5.0); Alkaline Phosphatase 85 U/L (39-117); Anion Gap 13 (12-20); Aspartate Amino Transferase 21 U/L (5-37); Blood Urea Nitrogen 25 mg/dL (9-16); Calcium 8.9 mg/dL (8.4-10.2); Carbon Dioxide 27 mmol/L (22-29); Chloride 100 mmol/L (96-108); Creatinine Clr Calc Pharmacy 106.5; Estimated Glomerular Filt Rate > 60; Magnesium 2.4 mg/dL (1.6-2.6); Potassium 3.9 mmol/L (3.3-5.1); Sodium 136 mmol/L (135-145); Total Protein 6.4 g/dL (6.5-8.0)
[2025-06-29 01:15] LABS: Troponin-I High Sensitivity 17.9 ng/L (<3.5-35.0)
[2025-06-29 01:31] LABS: Resp Syncy Virus RNA Qual PCR NEGATIVE (Negative); SARS COV2 PCR INHOUSE NEGATIVE (Negative)
[2025-06-29 02:00] VITALS: BP 120/62; PULSE 82; RESP 20; TEMP 36.8; O2SAT 96
[2025-06-29 02:07] LABS: D Dimer High Sensitivity 208 NG/ML
[2025-06-29 02:15] LABS: NT Pro B Type Natriuretic Pept 366.3 pg/mL (<300)
[2025-06-29 02:20] LABS: Troponin-I High Sensitivity 18.4 ng/L (<3.5-35.0)
[2025-06-29 09:01] VITALS: BP 120/62; PULSE 82; O2SAT 96
--- NOTE | 2025-06-29 09:23 | MHC.CM.PN ---
CM RECEIVED ED CM CONSULT. CM MET WITH PT AT BEDSIDE WHO STATES HE IS READY TO GO HOME. PT LIVES ALONE IN [facility], HAS SERVICES WITH [facility], THOUGH PT STATES HE HASN'T SEEN ANYONE IN 3 WEEKS. [facility] NOTIFIED OF NEED FOR ADDED SERVICES IN THE HOME. P.T. REC. HOME WITH SERVICES, PT'S FIRST CHOICE IS [facility], REFERRAL SENT. PT USES A [facility] FOR MOBILITY OUTSIDE OF THE HOME AND USES [facility]SPORTATION FOR APPOINTMENTS, PT WOULD LIKE TO SWITCH PHARMACY TO [facility] . PT INSTRUCTED TO NOTIFY PCP (DR. THORNTON) TO EXPEDITE THIS CHANGE. DP: PT WILL DC HOME FROM ED VIA [facility] SHUTTLE. PROVIDER AWARE.
[2025-06-29 09:40] VITALS: BP 118/52; PULSE 60; RESP 18; TEMP 37.1; O2SAT 99
== END 2025-06-29 09:58 | disposition home or self-care (01) ==
PROVIDERS: Emergency Provider Emergency Medicine; PCP Internal Medicine
DX: R07.9 Chest pain, unspecified (principal); R60.0 Localized edema; F32.A Depression, unspecified; E11.9 Type 2 diabetes mellitus without complications; I10 Essential (primary) hypertension; E78.5 Hyperlipidemia, unspecified; I48.19 Other persistent atrial fibrillation; Z87.891 Personal history of nicotine dependence; Z79.01 Long term (current) use of anticoagulants; Z79.02 Long term (current) use of antithrombotics/antiplatelets; Z79.899 Other long term (current) drug therapy; Z03.818 Encounter for observation for suspected exposure to other biological agents ruled out
CPT/HCPCS: 36415; 71046; 80048; 80076; 80307; 83735; 83880; 84484; 85025; 85379; 85610; 86140; 87637; 93005; 96365; 97162; 99285; J0131

== ENCOUNTER → 2025-06-29 00:20 | Outpatient (BNV) | payer MEDICARE, SELFPAY | PROVIDERS: Emergency Provider Emergency Medicine; PCP Internal Medicine; Visit Provider Internal Medicine Cardiovascular Disease | DX: I48.91 Unspecified atrial fibrillation (principal); I25.2 Old myocardial infarction | CPT/HCPCS: 93010 ==

== ENCOUNTER → 2025-06-29 00:28 | Outpatient (BNV) | payer MEDICARE, SELFPAY | PROVIDERS: Emergency Provider Emergency Medicine; PCP Internal Medicine; Visit Provider Radiology Neuroradiology | DX: R07.1 Chest pain on breathing (principal) | CPT/HCPCS: 71046 ==

== ENCOUNTER 2025-07-04 10:51 | Outpatient (AMB) | payer MEDICARE, SELFPAY ==
[2025-07-04 11:00] LABS: Prothrombin Time Whole Bld POC 18.8 sec (11.1-13.5); ~PT, ~INR - Anti Coag Clinic 1.6 (0.9-1.1)
--- OUTSIDE RECORDS SUMMARY | 2025-07-04 14:02 | XMS_ITS | Patient Health Record ---
Author Organization [facility] Address [address] [place] [address] Care Team Providers Care Eye Glass Frame Polisher Name Role Phone Wei MARTINEZ, [facility] Primary [facility] Provider Momo Leon [phone] Allergies Allergen (clinical drug ingredient) Drug/Non Drug [...] Start Date Coverage End Date MEDICARE OF [place] [address] [place] [id number] WEI PULLIAM Self - patient is the insured [employer] [address] [address] [place] [address] [id number] WEI PULLIAM Self - patient is the insured
--- OUTSIDE RECORDS SUMMARY | 2025-07-04 14:02 | XMS_ITS ---
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 Loomis01/25/24: Denies any dyspnea with exertion. [...] joint pain increased [facility]. [facility] with [facility] as needed for any acute [...] (do not use for phone, instead use [id number]) [facility] Unspecified atrial fibrillationOther thrombophiliaChronic obstructive pulmonary [...] (do not use for phone, instead use 51137-57) [facility] New patient,40-59min; chronic exacerbation, 2 stable chronic or 1 acute illness add add modifier 95 for video (do not use for phone, instead use 02301-87) [facility] New patient,40-59min; chronic exacerbation, 2 stable chronic or 1 acute illness add add modifier 95 for video (do not use for phone, instead use 74363-79) [facility] New patient,40-59min; chronic exacerbation, 2 stable chronic or 1 acute illness add add modifier 95 for video (do not use for phone, instead use 18853-25) [facility] New patient,40-59min; chronic exacerbation, 2 stable chronic or 1 acute illness add add modifier 95 for video (do not use for phone, instead use 69945-25) [facility] New patient,40-59min; chronic exacerbation, 2 stable chronic or 1 acute illness add add modifier 95 for video (do not use for phone, instead use 52645-65) [facility] New patient,40-59min; chronic exacerbation, 2 stable chronic or 1 acute illness add add modifier 95 for video (do not use for phone, instead use 79970-33) [facility] New patient,40-59min; chronic exacerbation, 2 stable chronic or 1 acute illness add add modifier 95 for video (do not use for phone, instead use 28980-33) [facility]22 No Data Available [facility]/2022 History of fallingMyalgia, o ther site No Data Available [facility] 08/18/2022 Unspecified atrial fibrillationOther thrombophiliaChronic obstructive pulmonary disease, unspecifiedUnspecified disorder of circulatory systemChronic pulmonary embolismHeart failure, unspecifiedCardiomyopathy, unspecifiedMajor depressive disorder, recurrent, in full remissionHyperlipidemia, unspecifiedObstructive sleep apnea (adult) (pediatric)History of fallingMyalgia, other siteMorbid (severe) obesity due to excess caloriesInsomnia, unspecifiedSedative, hypnotic or anxiolytic dependence, uncomplicatedPersonal history of nicotine dependence No Data Available [facility]2022 Other thrombophiliaUnspecifi ed atrial fibrillationChronic obstructive pulmonary disease, unspecifiedUnspecified disorder of circulatory systemChronic pulmonary embolismHeart failure, unspecifiedCardiomyopathy, unspecifiedMajor depressive disorder, recurrent, in full remissionCoagulation defect, unspecifiedHyperlipidemia, unspecifiedObstructive sleep apnea (adult) (pediatric)History of fallingMyalgia, other siteMorbid (severe) obesity due to excess caloriesBody mass index (BMI) 45.0-49.9, adultInsomnia, unspecifiedSedative, hypnotic or anxiolytic dependence, uncomplicated No Data Available [facility]2022 No Data Available [facility] Data Available [facility] Data Available [facility] No Data Available [facility] 09[place]2023 Dizziness and giddinessBody mass index (BMI) 40.0-44.9, adult No Data Available [facility] 09[place]2023 No Data Available [facility]2023 No Data Available [facility]2023 No Data Available [facility]2023 No Data Available [facility] 01/25/2024 Other thrombophiliaUnspecifi ed atrial fibrillationOther problems related to medical facilities and other health careChronic obstructive pulmonary disease, unspecifiedChronic pulmonary embolismUnspecified disorder of circulatory systemCardiomyopathy, unspecifiedHeart failure, unspecifiedMajor depressive disorder, recurrent, in full remissionHyperlipidemia, unspecifiedObstructive sleep apnea (adult) (pediatric)History of fallingMyalgia, other siteMorbid (severe) obesity due to excess caloriesBody mass index (BMI) 40.0-44.9, adultInsomnia, unspecified No Data Available [facility] 01[place]25[place]2024 No Data Available [facility]/2024 No Data Available [facility] 01/25/2024 No Data Available [facility] [place] 01/25/2024 No Data Available [facility]/25/[place]24 No Data Available [facility] 01/25/2024 No Data Available [facility] 01/[place]/2024 No Data Available [facility] 01/[place]/2024 Vital Signs Date of [...] Time Current Smoking Status Former smoker 2025-06-18 9 Sex Male History of Procedures Procedures Service Procedure code Service date Servicing provider Phone# New patient,40-59min; chronic exacerbation, 2 stable chronic or 1 acute illness add add modifier 95 for video (do not use for phone, instead use 04903-25) 05047 2022-07-27 No Data Available No Data Availa [...] le No Data Available No Data Available [id number] 2024-01-25 No Data Available No Data Available [...] states he can likely get someone from [facility] warfarin- follows closely with cardio [...] states he can likely get someone from [facility] warfarin- follows closely with cardio [...] 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 Follow-up with [facility] as needed for any acute [...] PCP for ongoing monitoring and management Sees charhouse worker Dr. 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 Yes, preferred proxy but not named KRISTINEf so, Who? Sister Lorne you have a written Advance Directive? Has Advance DirectiveOther details of discussion: Patient expressed her desire to be DNI code status, he is planning to discuss with PCPToday's plan: Advised patient to discuss wishes with [email or web address] : AD or surrogate was documented in the medical record.
--- OUTSIDE RECORDS SUMMARY | 2025-07-04 14:02 | XMS_ITS | Encounter Summary ---
Author Organization [facility] Address [address] [place] [address] Phone Care Team Providers Care Lump Inspector Name Role Phone Jaylon Carvajal MD Primary Care Provider [phone] Encounter Details Date Type Department Care Team (Late st Contact Info) Description 09/13/2018 Transcribe Orders [facility] Specimen Processing [address] [place], [place] [id number] Joo Oswald MD [address] [facility], [address] [place] [address] [email or web address] Atrial fibrillation, unspecified type (Primary Dx) Social [...] EST) PT 30.5(H) 10.2 - 12.9 sec [facility] INR 2.7(H) 0.9 - 1.1 [facility] Comment:Therapeutic range fo r oral Vitamin K antagonists: 2.0-3.5 Blood 09/13/2018 5:50 AM EST 09/13/2018 7:43 AM EST us Joo Oswald MD LAB BLOOD BKR ORDERABLES Final R esult [facility] [address] [place] [address] documented in this encounter Visit Diagnoses Diagnosis Atrial fibrillation, unspecified type- Primary documented in this encounter Care Teams Lump Inspector Relationship Specialty Start Date End Date Jaylon Carvajal MD [address] [place] [address] PCP - General Internal Medicine 09/10/18 documented as of this encounter Additional Source Comments The information contained in this document represents components of the legal health record. It is not the complete legal health record.[facility]
--- OUTSIDE RECORDS SUMMARY | 2025-07-04 14:02 | XMS_ITS | Clinical Summary ---
Author Organization [facility] Address [address] [place] [phone] Phone Care Team Providers Care Process Stripper Name Role Phone Jaylon Carvajal MD Primary Care Provider [phone] Social History Tobacco Use Types Packs/Day Years [...] topic Medical Devices Not on file Insurance [facility] MEDICARE REPLACEMENT [facility] MEDICARE REPLACEMENT [facility] MEDICARE REPLACEMENT [facility] MEDICARE REPLACEMENT Care Teams Process Stripper Relationship Specialty Start Date End Date Jaylon Carvajal MD [facility] [place] [address] PCP - General Internal Medicine 09/10/18 Additional Source Comments The information contained in this document represents components of the legal health record. It is not the complete legal health record.[facility]
--- OUTSIDE RECORDS SUMMARY | 2025-07-04 14:03 | XMS_ITS | Encounter Summary ---
Author Organization [facility] Address [address] [place] [address] Phone Care Team Providers Care Security System Engineer Name Role Phone Jaylon Carvajal MD Primary Care Provider [phone] Encounter Details Date Type Department Care Team (Late st Contact Info) Description 09/10/2018 Transcribe Orders [facility] Specimen Processing [address] [place], [place] [id number] Joo Oswald MD [address] [facility], [address] [place] [address] [email or web address] Atrial fibrillation, unspecified type (Primary Dx) Social [...] EST) PT 33.2(H) 10.2 - 12.9 sec [facility] INR 2.9(H) 0.9 - 1.1 [facility] Comment:Therapeutic range fo r oral Vitamin K antagonists: 2.0-3.5 Blood 09/10/2018 6:23 AM EST 09/10/2018 8:24 AM EST us Joo Oswald MD LAB BLOOD BKR ORDERABLES Final R esult [facility] [address] [place] [address] documented in this encounter Visit Diagnoses Diagnosis Atrial fibrillation, unspecified type- Primary documented in this encounter Care Teams Security System Engineer Relationship Specialty Start Date End Date Jaylon aCrvajal MD [address] [place] [address] PCP - General Internal Medicine 09/10/18 documented as of this encounter Additional Source Comments The information contained in this document represents components of the legal health record. It is not the complete legal health record.[facility]
--- NOTE | 2025-07-04 15:45 | MHC.OFFVISCO ---
Intake Intake Visit Reasons: Anticoagulation Allergies iodine (IODINE) Allergy (Intermediate, Verified 07/04/25 10:53) HIVES, bloating latex (LATEX) Allergy (Intermediate, Verified 07/04/25 10:53) HIVES shellfish derived (SHELLFISH DERIVED) Allergy (Intermediate, Verified 07/04/25 10:53) ANAPHYLAXIS egg Allergy (Verified 07/04/25 10:53) Hives lisinopril Allergy (Verified 07/04/25 10:53) Unknown Peppers, Green Allergy (Verified 07/04/25 10:53) Hives spinach Allergy (Verified 07/04/25 10:53) Hives Medication List - Last Reconciled 07/04/25 by Quynh Cervantes RN atorvastatin 10 mg PO DAILY carvedilol 6.25 mg PO BID cetirizine 10 mg PO DAILY PRN digoxin 250 mcg PO MOWEFR duloxetine 40 mg PO DAILY furosemide 20 mg PO BID tamsulosin (Flomax) 0.4 mg PO BEDTIME tizanidine 4 mg PO BEDTIME PRN warfarin See Protocol 1MG orally 2-4MG DAILY PER INR PER ANTICOAGULATION SERVICES Nursing Note PT.PRESENTED TODAY AT [facility] WITHOUT APPT.STATING THAT HE PREFERS TO RETURN HERE FOR INR CHECKS. HE ADMITS THAT HE NEEDS TO BE GETTING OUT OF HIS SMALL APARTMENT MORE, AND IS ABLE TO OBTAIN TRANSPORTATION TO [facility] WITHOUT ANY DIFFICULTY. PT. HAS LOST > 80 LBS, AND LOOKS WELL. HE IS WALKING MUCH BETTER THAN LAST SEEN BY MYSELF, AND HAS NO SOB. PT. HAD [facility] ON 07/02 FOR INR CHECK : 1.8. PT. ADMITS THAT HE SOMETIMES MIXES UP THE WARFARIN DOSE, HE DOESNT SET UP MEDS AHEAD. I HAVE GIVEN PT. A PILL BOX, AND HE AGREES TO USE THIS FROM NOW ON. SPOKE WITH SWAPNIL(NIESHA) WHO AGREES TO DISCUSS PT'S REQUEST FOR INR'S AT [facility]. SHE WILL DISCUSS WITH HER TEAM, AND AGREES TO LET [facility] KNOW DECISION RE D/C FROM [facility] SERVICE. PT.IS HAPPY WITH THIS, AND NIESHA STATES THAT PT. HAS NO URGENT NEED FOR [facility] OTHERWISE. IN THE MEANTIME WILL BOOST WARFARIN DOSE AND WILL FOLLOW-UP HERE ON 07/10/25. PT.TO CALL IN MEANTIME IF ANY QUESTIONS/CONCERNS ARISE Anti-Coag Initial Assessment Social Hx Patient Tobacco Use Status: Former Tobacco user alcohol intake: never Coding Level of Care Code Est Patient Level 1 Diagnoses Current use of anticoagulant therapy Z79.01 Assessment & Plan Assessment & Plan (1) Current use of anticoagulant therapy: Code(s): Z79.01 - long-term (current) use of anticoagulants Category: Medical
--- NOTE | 2025-07-04 15:58 | MHC.OFFVISCO ---
Intake Intake Visit Reasons: Anticoagulation Allergies iodine (IODINE) Allergy (Intermediate, Verified 07/04/25 10:53) HIVES, bloating latex (LATEX) Allergy (Intermediate, Verified 07/04/25 10:53) HIVES shellfish derived (SHELLFISH DERIVED) Allergy (Intermediate, Verified 07/04/25 10:53) ANAPHYLAXIS egg Allergy (Verified 07/04/25 10:53) Hives lisinopril Allergy (Verified 07/04/25 10:53) Unknown Peppers, Green Allergy (Verified 07/04/25 10:53) Hives spinach Allergy (Verified 07/04/25 10:53) Hives Medication List - Last Reconciled 07/04/25 by Quynh Cervantes RN atorvastatin 10 mg PO DAILY carvedilol 6.25 mg PO BID cetirizine 10 mg PO DAILY PRN digoxin 250 mcg PO MOWEFR duloxetine 40 mg PO DAILY furosemide 20 mg PO BID tamsulosin (Flomax) 0.4 mg PO BEDTIME tizanidine 4 mg PO BEDTIME PRN warfarin See Protocol 1MG orally 2-4MG DAILY PER INR PER ANTICOAGULATION SERVICES Nursing Note PT.PRESENTED TODAY AT [facility] WITHOUT APPT.STATING THAT HE PREFERS TO RETURN HERE FOR INR CHECKS. HE ADMITS THAT HE NEEDS TO BE GETTING OUT OF HIS SMALL APARTMENT MORE, AND IS ABLE TO OBTAIN TRANSPORTATION TO [facility] WITHOUT ANY DIFFICULTY. PT. HAS LOST > 80 LBS, AND LOOKS WELL. HE IS WALKING MUCH BETTER THAN LAST SEEN BY MYSELF, AND HAS NO SOB. PT. HAD [facility] ON 07/02 FOR INR CHECK : 1.8. PT. ADMITS THAT HE SOMETIMES MIXES UP THE WARFARIN DOSE, HE DOESNT SET UP MEDS AHEAD. I HAVE GIVEN PT. A PILL BOX, AND HE AGREES TO USE THIS FROM NOW ON. SPOKE WITH SWAPNIL(NIESHA) WHO AGREES TO DISCUSS PT'S REQUEST FOR INR'S AT [facility]. SHE WILL DISCUSS WITH HER TEAM, AND AGREES TO LET [facility] KNOW DECISION RE D/C FROM VNA SERVICE. PT.IS HAPPY WITH THIS, AND NIESHA STATES THAT PT. HAS NO URGENT NEED FOR VNA OTHERWISE. IN THE MEANTIME WILL BOOST WARFARIN DOSE AND WILL FOLLOW-UP HERE ON 07/10/25. PT.TO CALL IN MEANTIME IF ANY QUESTIONS/CONCERNS ARISE Anti-Coag Initial Assessment Social Hx Patient Tobacco Use Status: Former Tobacco user alcohol intake: never Coding Level of Care Code Est Patient Level 1 Diagnoses Current use of anticoagulant therapy Z79.01 Assessment & Plan Assessment & Plan (1) Current use of anticoagulant therapy: Code(s): Z79.01 - detention (current) use of anticoagulants Category: Medical
== END 2025-07-04 11:38 | disposition home or self-care (01) ==
LOC: HO.ACS 10:51
PROVIDERS: PCP Internal Medicine; Visit Provider Internal Medicine Medical Oncology
DX: Z79.01 Long term (current) use of anticoagulants (principal)

== ENCOUNTER → 2025-07-04 10:51 | Outpatient (BNVA) | payer MEDICARE, SELFPAY | PROVIDERS: PCP Internal Medicine; Visit Provider Internal Medicine Medical Oncology | DX: Z79.01 Long term (current) use of anticoagulants (principal) | CPT/HCPCS: 85610; 99211 ==

== ENCOUNTER 2025-07-09 02:53 | Emergency (ER) | payer MEDICARE, SELFPAY ==
[2025-07-09] VITALS (7 sets, daily range): BP systolic 102–140; BP diastolic 62–92; PULSE 81–110; RESP 13–20; TEMP 36.5–36.7; O2SAT 95–98; BMI 39.7
--- NOTE | 2025-07-09 02:57 | ED.GENADULT ---
HPI - General Adult General Chief complaint: General Medical Stated complaint: Diff breathing, CPAP broke, 96% on 2 L, Afib Time Seen by Provider: 07/09/25 02:56 Source: patient Mode of arrival: ambulatory Limitations: no limitations History of Present Illness ED Provider: Dr. Barrios HPI narrative: 74-year-old male history of CHF, obesity, cardiomyopathy, NOEMI, COPD, CAD, AFib on warfarin presenting to ER today for evaluation of broken equipment and insomnia. Patient stated that his CPAP machine has broken. He is unable to sleep. He has been on it for the past 20 years. He has attempted to call his primary care doctor and cardiology office however no one swelling to help him out with the arrangement of his CPAP machine. He is looking for assistance to help him sleep. And arrangement of CPAP machine. No other complaints at this time. Related Data Home Medications ?Medication ?Instructions ?Recorded ?Confirmed atorvastatin 10 mg tablet 10 mg PO DAILY 12/05/24 07/09/25 digoxin 250 mcg (0.25 mg) tablet 250 mcg PO MOWEFR 12/05/24 07/09/25 warfarin 4 mg tablet 4 mg PO SUTUTHSA@0900 04/02/25 07/09/25 cetirizine 10 mg tablet 10 mg PO DAILY PRN Allergy Symptoms 05/08/25 07/09/25 tizanidine 4 mg tablet 4 mg PO BEDTIME 05/08/25 07/09/25 duloxetine 20 mg capsule,delayed 40 mg PO DAILY 06/18/25 07/09/25 release acetaminophen 500 mg tablet 1,000 mg PO BID PRN Pain 07/09/25 07/09/25 cholecalciferol (vitamin D3) 50 50 mcg PO DAILY 07/09/25 07/09/25 mcg (2,000 unit) tablet (Vitamin D3) omeprazole 20 mg tablet,delayed 20 mg PO DAILY@0630 07/09/25 07/09/25 release tamsulosin 0.4 mg capsule 0.4 mg PO DAILY 07/09/25 07/09/25 warfarin 4 mg tablet 2 mg PO MOWEFR@0900 07/09/25 07/09/25 Previous Rx's ?Medication ?Instructions ?Recorded carvedilol 6.25 mg tablet 6.25 mg PO BID #180 tabs 11/03/24 furosemide 20 mg tablet 20 mg PO BID #180 tabs 12/04/24 Allergies Allergy/AdvReac Type Severity Reaction Status Date / Time iodine (IODINE) Allergy Intermediate HIVES, Verified 07/09/25 03:08 bloating latex (LATEX) Allergy Intermediate HIVES Verified 07/09/25 03:08 shellfish derived (SHELLFISH Allergy Intermediate ANAPHYLAXIS Verified 07/09/25 03:08 DERIVED) egg Allergy Hives Verified 07/09/25 03:08 lisinopril Allergy Unknown Verified 07/09/25 03:08 Peppers, Green Allergy Hives Verified 07/09/25 03:08 spinach Allergy Hives Verified 07/09/25 03:08 Review of Systems Review of Systems: Pertinent review of systems as mentioned in HPI. All other system otherwise negative. [facility] Past Medical History [facility] Narrative: Medical history as mentioned in HPI Medical History Heart failure with reduced ejection fraction Chest pain, pleuritic Back pain Dyspnea NOEMI on CPAP COPD (chronic obstructive pulmonary disease) CAD (coronary artery disease) HLD (hyperlipidemia) HTN (hypertension) Diabetes Obstructive sleep apnea Morbid obesity Cardiomyopathy Persistent atrial fibrillation Current use of anticoagulant therapy Surgical History History of knee surgery History of ankle surgery Family History Family History Father HTN (hypertension) Diabetes mellitus Cardiac disease Bone cancer Substance use disorder Mother HTN (hypertension) Lung cancer Social History Social History Household Members: None Housing: Apartment Do you presently have visiting nurse or other home services: No Alcohol intake: never Comment: refusing alarms Patient Tobacco Use Status: Former Tobacco user Years Smoked: 30 yrs Smoked in Last 30 Days: No e-Cigarette/Vaping Use: Never Used Second Hand Smoke Exposure: No Use of substances other than those prescribed or required for medical reasons: No Substance Use Type: Crack/Cocaine Advance Directives: No Advance Directives Information Provided: No service: No Current occupational status: retired and disabled Cognitive needs: No Hearing needs: No Vision needs: Yes Physical Exam ED Exam Exam: General: Pleasant, no distress, interacting appropriately Head: Normacephalic, atraumatic ENT: oral mucosa moist, neck supple, no tracheal deviation Respiratory: Speaking in full sentences. Does not appear to be in respiratory distress or tachypneic. Extremities: Trace edema Neurological: Awake and alert, no facial droop noted Skin: Warm and dry Psychiatric: Appropriate mood and thoughts Vital Signs: Vital Signs - 24 hr 07/09/25 03:00 07/09/25 03:18 07/09/25 06:21 Temperature 97.8 F 97.7 F Pulse Rate 95 100 81 Respiratory Rate 14 13 13 Blood Pressure 121/70 121/70 102/62 Pulse Oximetry 96 95 96 Oxygen Delivery Method Room Air Room Air CPAP 07/09/25 09:23 07/09/25 11:08 Temperature 98.0 F Pulse Rate 110 H 88 Respiratory Rate 20 16 Blood Pressure 109/65 118/62 Pulse Oximetry 98 96 Oxygen Delivery Method Room Air Room Air BMI result Body Mass Index 39.7 Course Course Course Narrative: Time: 08:46 Date: 07/09/25 Provider: CHARLOTTE Elizondo Patient presented after CPAP machine broke 6 days ago. Complains of insomnia as a result. Attempted to contact PCP and CPAP company - has been unable to get a new CPAP machine. CM/RT consultations placed. I completed MOLST form with patient at bedside - he is alert, oriented, and has capacity to make his own decisions. FULL CODE. MR pending - he is anticogulated on warfarin. INR last week 1.6 - had warfarin increased temporarily. No current issues or complaints. VS stable. Pending CM/RT, dispo. will continue to monitor. Time: 11:41 Date: 07/09/25 Provider: CHARLOTTE Elizondo Physician observation ended at 1141. CM/RT have met with patient - new CPAP ordered, to be delivered to patient's home tomorrow. per CM, patient must be home for CPAP delivery. patient agreeable with discharge home today. Patient has remained stable throughout ED visit today. Discussed worrisome signs and symptoms and when to return to the ED. All questions answered at this time. Patient is agreeable with disposition and stable for discharge. Medications Administered Discontinued Medications Generic Name Dose Route Start Last Admin Trade Name Freq PRN Reason Stop Dose Admin Ibuprofen 400 mg 07/09/25 03:11 07/09/25 03:17 Ibuprofen 400 Mg Tablet PO 07/09/25 03:12 400 mg ONCE ONE Administration Medical Decision Making Medical Decision Making MDM Narrative: 74-year-old male history of cardiomyopathy, AFib on Coumadin presented hospital today for assistance of broken CPAP machine. Patient is unable to coordinate with the outpatient clinic to get this replaced. Came to the ER for further assistance. Complain of inability to sleep due to not having a CPAP machine since . We will plan to consult case mentioned in team at this time. Did not see the need to obtain further workup or lab work or imaging. Patient appears to be stable. Not in respiratory distress at this time. CPAP will be ordered for the patient's here. Pending case management evaluation in the morning. Differential Diagnosis Differential Diagnoses: The differential diagnosis associated with the presentation includes Medical screening exam, assistance with durable medical equipment, insomnia, CHF exacerbation Discharge Plan Discharge Clinical Impression: Malfunction of continuous positive airway pressure (CPAP) or bilevel positive airway pressure (BPAP) machine Insomnia Qualifiers: Insomnia type: unspecified Qualified Code(s): G47.00 - Insomnia, unspecified Patient Disposition: Home, Self-Care Additional Instructions: You were evaluated in the ED today for insomnia secondary to your broken CPAP machine. You met with respiratory therapy and case management. They were able to order you a new CPAP machine which will be delivered to your home tomorrow. You must be home for delivery. You are agreeable with discharge home today. Continue all home medications as prescribed. Please follow up with your PCP. Please return with any new or worsening symptoms. In the case of an emergency call 911. Prescriptions: No Action carvedilol 6.25 mg tablet 6.25 mg PO BID Qty: 180 3RF furosemide 20 mg tablet 20 mg PO BID Qty: 180 3RF cetirizine 10 mg tablet 10 mg PO DAILY PRN (Reason: Allergy Symptoms) tizanidine 4 mg tablet 4 mg PO BEDTIME tamsulosin 0.4 mg capsule 0.4 mg PO DAILY acetaminophen 500 mg Tablet 1,000 mg PO BID PRN (Reason: Pain) omeprazole 20 mg Tablet,Delayed Release (Dr/Ec) 20 mg PO DAILY@0630 cholecalciferol (vitamin D3) [Vitamin D3] 50 mcg (2,000 unit) Tablet 50 mcg PO DAILY warfarin 4 mg tablet 2 mg PO MOWEFR@0900 atorvastatin 10 mg tablet 10 mg PO DAILY digoxin 250 mcg (0.25 mg) tablet 250 mcg PO MOWEFR warfarin 4 mg tablet 4 mg PO SUTUTHSA@0900 Protocol: Dose Management Condition: Wednesday (Week One) Dose/Route: 4 mg Instruction: 1 x 4 mg tablet Condition: Wednesday Dose/Route: 2 mg Instruction: 0.5 x 4 mg tablets Condition: Wednesday Dose/Route: 4 mg Instruction: 1 x 4 mg tablet Condition: Wednesday Dose/Route: 6 mg Instruction: 1.5 x 4 mg tablets Condition: Dose/Route: 4 mg Instruction: 1 x 4 mg tablet Condition: Wednesday Dose/Route: 2 mg Instruction: 0.5 x 4 mg tablets Condition: Wednesday Dose/Route: 4 mg Instruction: 1 x 4 mg tablet Condition: Wednesday (Week Two) Dose/Route: 4 mg Instruction: 1 x 4 mg tablet Condition: Wednesday Dose/Route: 2 mg Instruction: 0.5 x 4 mg tablets Condition: Wednesday Dose/Route: 4 mg Instruction: 1 x 4 mg tablet Condition: Wednesday Dose/Route: 2 mg Instruction: 0.5 x 4 mg tablets Condition: Dose/Route: 4 mg Instruction: 1 x 4 mg tablet Condition: Wednesday Dose/Route: 2 mg Instruction: 0.5 x 4 mg tablets Condition: Wednesday Dose/Route: 4 mg Instruction: 1 x 4 mg tablet Protocol Text: Adjustment Start Date: Wednesday07/04/25 INR Value: 1.6 INR Date: 07/04/25 Recheck Date: 07/10/25 Rx Instructions: 1MG orally 2-4MG DAILY PER INR PER [facility]TICOAGULATION SERVICES duloxetine 20 mg capsule,delayed release(DR/EC) 40 mg PO DAILY Referrals: Courtney KRAFT [Outside] Jaylon Carvajal MD [Primary Care Provider, Internal Medicine] Print Language: Icelandic
--- OUTSIDE RECORDS SUMMARY | 2025-07-09 03:15 | XMS_ITS | Encounter Summary ---
Author Organization [facility] Address [address] [place] [address] Phone Care Team Providers Care Treatment Manager Name Role Phone Jaylon Carvajal MD Primary Care Provider [phone] Encounter Details Date Type Department Care Team (Late st Contact Info) Description 09/10/2018 Transcribe Orders [facility] Specimen Processing [address] [place], [place] [id number] Joo Oswald MD [address], [address] [place] [address] [email or web address] Atrial fibrillation, unspecified type (Primary [...] EST) PT 33.2(H) 10.2 - 12.9 sec [facility] INR 2.9(H) 0.9 - 1.1 [facility] Comment:Therapeutic range fo r oral Vitamin K antagonists: 2.0-3.5 Blood 09/10/2018 6:23 AM EST 09/10/2018 8:24 AM EST us Joo Oswald MD LAB BLOOD BKR ORDERABLES Final R esult [facility] [address] [place] [address] documented in this encounter Visit Diagnoses Diagnosis Atrial fibrillation, unspecified type- Primary documented in this encounter Care Teams Treatment Manager Relationship Specialty Start Date End Date Jaylon Carvajal MD [address] [place] [address] PCP - General Internal Medicine 09/10/18 documented as of this encounter Additional Source Comments The information contained in this document represents components of the legal health record. It is not the complete legal health record.[facility]
--- OUTSIDE RECORDS SUMMARY | 2025-07-09 03:15 | XMS_ITS | Data Portability ---
Author Organization [facility] [employer] [facility], Main Office Address [address], [address] [place] [address] Care Team Providers Care Emergency Registrar Name Role Phone KULWANT RUEDA - 2ND FLOOR OTHER GARY THORNTON Primary Care Provider Assessment Encounter Date Assessment Date Assessment LastModified by Organization Details LastModified Time 01/11/2025 01/11/2025 45 minutes spent on coordination of discharge. [email or web address] Not available 01/11/2025 10:20:15 Plan of Treatment [...] Details Recorded Time Injury of right knee [id number] 4107 Active 2018 APPLE Bernardo [address] [facility], [address], [place], [address], [facility] [employer] [facility] 9 16:26:33 Cardiomyopa thy 40932608 Active 2018 APPLE Bernardo [address] [facility], [address], [place], [address], [facility] [employer] 9 16:27:43 Moderate chronic obstructive pulmonary disease 614722199 Active 2018 APPLE Bernardo [address] [facility], [address], [place], [address], [facility] [employer] 9 16:27:51 Morbid obesity 705577780 Active 2018 Brittany Ly COUNSELING AIDE [address] , [address], [place], [address], [facility] 9 16:27:57 Type 2 diabetes mellitus without complicatio n 957611281 Active 2018 Brittany Malachi COUNSELING AIDE [address] , [address], [place], [address], [facility] 9 16:28:26 Mixed hyperlipide keegan 006425730 Active 2018 Brittany APPLE Ly [address] [facility], [address], [place], [address], [facility] 9 16:28:43 Congestive heart failure 92914654 Active 2018 Brittany APPLE Ly [address] [facility], [address], [place], [address], [facility] 9 16:28:55 Essential hypertensio n 51932514 Active 2018 APPLE Bernardo [address] [facility], [address], [place], [address], [facility] 9 16:29:05 Gastroesoph ageal reflux disease without esophagitis 914362289 Active 2018 PAPLE Bernardo [address] [facility], [address], [place], [address], [facility] 9 16:30:17 Mixed anxiety and depressive disorder 892125671 Active 2018 APPLE Bernardo [address] [facility], [address], [place], [address], [facility] 9 16:30:26 Chronic atrial fibrillatio n 339885346 Active 2018 APPLE Bernardo [address] [facility], [address], [place], [address], [facility] 9 16:41:16 Acute gastroenter itis 79772499 Active 2018 APPLE Bernardo [address] [facility], [address], [place], [address], [facility] 9 14:26:19 Problem Notes None recorded. Medical Equipment None Reported. Allergies Allergen ID Allergen Name Allergen Category Reaction Reaction Severity Criticality Documentation Date Start Date Code Code System Note Provider Name and Address Organization Details Recorded Time 61023 iodine medicatio n Not available Not available Not available 09/02/2018 5933 RxNorm Brittany Ly, COUNSELING AIDE [address] [facility], [address], [place], [address], [facility] 9 16:24:44 08517 latex environme nt,medica tion Not available Not available Not available 09/02/2018 95904 91 RxNorm MATTHIAS Bernardo[address], [address], [place], [address], [facility] 9 16:24:50 89898 shellfish derived food,medi cation Not available Not available Not available 09/02/2018 APPLE Bernardo [address] [facility], [facility] [address], [place], [address], [facility] 9 16:24:56 91413 egg extract food,medi cation hives other Not available mild unabletoasse 12/07/2024 33481 15 RxNorm Jennifer Banegas NP [address] [place] [address], [address], [place], [address], [facility] 5 08:44:27 68438 lisinopri l medicatio n other Not available unabletoasse 12/07/2024 37171 RxNorm unkno wn Jennifer Banegas NP [address] [facility], [address], [place], [address], [facility] 5 08:44:50 80006 montes pepper food other Not available unabletoasse 12/07/2024 other , unkno wn, green peppe rs Jennifer Banegas NP [address] [facility], [address], [place], [address], [facility] [employer] [facility] 5 08:45:34 31506 spinach extract food other Not available unabletoasse 12/07/2024 61003 76 RxNorm unkno wn Jennifer Banegas NP [address] [facility], [address], [place], [address], [facility] 5 08:45:50 Medications Not known to be on any medication Vitals Date Recorded Body weight Heart rate Respiratory rate Body temperature Oxygen saturation Systolic And Diastolic Provider Name and Address Organization Details Last Updated DateTime 5 511462. 53 g 70 /min 17 /min 97.9 [degF] 99 % 120/72 mm[Hg] Jennifer Banegas NP [address] [facility], [address], [place], [address], [facility] 5 12:18:16 Date Recorded Heart rate Respiratory rate Body temperature Oxygen saturation Systolic And Diastolic Provider Name and Address Organization Details Last Updated DateTime 5 92 /min 16 /min 97.3 [degF] 97 % 126/75 mm[Hg] DAMARIS BOCANEGRA NP [address] [facility], [address], [place], [address], [facility] 5 13:16:17 Date Recorded Body weight Heart rate Respiratory rate Body temperature Oxygen saturation Systolic And Diastolic Provider Name and Address Organization Details Last Updated DateTime 5 987909. 79 g 74 /min 18 /min 97.5 [degF] 100 % 128/70 mm[Hg] Jennifer Banegas NP [address] [facility], [address], [place], [address], [facility] 5 10:34:15 Date Recorded Body weight Heart rate Respiratory rate Body temperature Oxygen saturation Systolic And Diastolic Provider Name and Address Organization Details Last Updated DateTime 5 174753. 79 g 76 /min 17 /min 98.2 [degF] 98 % 146/78 mm[Hg] Jennifer Banegas NP [address] [facility], [address], [place], [address], [facility] 5 18:39:12 Date Recorded Heart rate Respiratory rate Body temperature Oxygen saturation Systolic And Diastolic Provider Name and Address Organization Details Last Updated DateTime 5 80 /min 18 /min 97.9 [degF] 95 % 134/70 mm[Hg] DAMARIS BOCANEGRA, BRITTNEY [address] [facility], [address], [place], [address], [facility] 5 09:45:19 Social History Question Answer Notes LastModified by [employer] Details LastModified Time Tobacco Smoking Status Former Smoker Not Available [facility] 05/14/2020 03:13:21 Do You Have An Advance Directive? No [id number] Information not available 05/14/2020 How Much Tobacco Do You Chew? None [id number] Information not available 05/14/2020 What Is Your Code Status? DNI Information not available 12/07/2024 Do You Have A Medical Power Of Physical Design Engineer? No MOLST: CPR Okay, DNI, Okay To Transfer To Hospital, No Dialysis, No Art Nutrition, IVF Okay Information not available 12/07/2024 What Was The Date Of Your Most Recent Tobacco Screening? 12/07/2024 Information not available 12/07/2024 Sex: Male Functional Status Question Answer Note LastModified by [employer] Details LastModified Time Do you use any [...] Td(adult) unspecified formulation 4 completed Alexander nicole [facility] 12/07/2024 11:16:09 Pneumococcal conjugate PCV 13 9 completed Alexander nicole [facility] 12/07/2024 11:16:26 Pneumococcal conjugate PCV 13 0 completed Alexander nicole [facility] 12/07/2024 11:16:31 pneumococcal polysaccharide PPV23 1 completed Alexander So-Oseguera [facility], [facility] 12/07/2024 11:16:45 influenza, unspecified formulation 0 completed Alexander So-Oseguera null, [facility] 12/07/2024 11:17:47 influenza, unspecified formulation 1 completed Alexander Judah-Oseguera [facility] 12/07/2024 11:17:51 influenza, unspecified formulation 2 completed Alexander Severos-Oseguera null, [facility] 12/07/2024 11:17:56 influenza, unspecified formulation 3 completed [facility] 12/07/2024 11:18:01 SARS-COV-2 (COVID-19) vaccine, UNSPECIFIED 1 completed Alexander Judah-Oseguera [facility] 12/07/2024 11:18:11 SARS-COV-2 (COVID-19) vaccine, UNSPECIFIED 2 completed Alexander Judah-Oseguera [facility] 12/07/2024 11:18:16 SARS-COV-2 (COVID-19) vaccine, UNSPECIFIED 2 completed [facility] 12/07/2024 11:18:19 SARS-COV-2 (COVID-19) vaccine, UNSPECIFIED 3 completed Alexander Juadh-Oseguera [facility] 12/07/2024 11:18:24 zoster, unspecified formulation 2 completed Alexander Judah-Oseguera [facility] 12/07/2024 11:18:36 Past Encounters Encounter ID Performer Location Encounter Start Date Encounter Closed Date Diagnosis/Indication Diagnosis SNOMED-CT Code Diagnosis ICD10 Code Diagnosis IMO Codes Diagnosis Note [id number] APPLE Bernardo AT [address] [address] 09/02/2018 15:56:34 09/06/2018 16:08:53 Injury of right knee [id number] 2503273 S89.91XD see hpiPT OT for conditioni ng and mobilitymo nitor right kneedc tramadolox ycodone 5 mg 1-2 q 6 hrs prn mod-severe painmonito r pain relief, bowelsadde d colace 100 mg bid and senna 8.6 mg qhs Moderate c hronic obstructive pulmonary disease 721555541 J44.9 asmanex inhaler bidpro air prnmonitor resp status Type 2 shekhar betes mellitus without complication 519058634 E11.9 glipizide 5 mg qdmonitor FBS with labs Mixed hyperlipidemia 267 702234 E78.2 lipitor 10 mg qhs Congestive heart failure 35435861 I50.9 coreg 12.5 mg bidlisinop ril 20 mg qdlasix 40 mg qdmonitor fluid status Essential hypertension 00889954 I10 meds as abovemonit or bp and labs Gastroesop hageal reflux disease without esophagitis 630018808 K21.9 omeprazole 20 mg qdmonitor for sx relief Mixed anxi ety and depressive disorder 756232263 F41.8 zoloft 100 mg qdativan 2 mg qhs Chronic at rial fibrillation 634366495 I48.2 hold coumadin tonightres ume 4 mg tomorrow and check INR on 09/05amioda enrico 200 mg qdmonitor and adjust coumadinco reg for rate controlmon itor heart rate, bleeding [id number] Joo Oswald MD [place] AT [address] [address] 09/04/2018 11:45:11 09/13/2018 08:29:06 Pain in right knee 1213403636 05355 M25.561 knee pain s/p fallno fracturePT OT eval and treatmonit or for pain controlort ho eval prn Unsteady gait 491259604 R26.81 PT OT eval and treatmonit or for fall risk Chronic at rial fibrillation 894422598 I48.2 amiodarone 200 mg qdcoreg 12.5 mg bidmonitor and adjust coumadinmo nitor for rate control Congestive heart failure 89691574 I50.22 lasix 40 mg qdmonitor weights and respirator y statustitr ate prnmonitor renal function Essential hypertension 01625155 I10 lasix 40 mg qdlisinopr il 20 mg qdcoreg 12.5 mg bidmonitor bp Gastroesop hageal reflux disease without esophagitis 692114998 K21.9 omeprazole 20 mg qdmonitor for sx control [id number] Betty SOARESLEY AT [address] [address] 09/07/2018 13:09:24 09/13/2018 10:27:03 Pain in right knee 7833345215 34331 M25.561 knee pain s/p fallno fracturePT OT [...] oversized bed is imperative . Unsteady gait 425213029 R26.81 PT OT eval and treatmonit or for fall risk Chronic at rial fibrillation 589804107 I48.2 amiodarone 200 mg qdcoreg 12.5 mg bidmonitor and adjust coumadinmo nitor for rate control Congestive heart failure 04269188 I50.22 lasix 40 mg qdmonitor weights and respirator y statustitr ate prnmonitor renal function Essential hypertension 30816327 I10 BP at goallasix 40 mg qdlisinopr il 20 mg qdcoreg 12.5 mg bidmonitor bp Gastroesop hageal reflux disease without esophagitis 399505264 K21.9 omeprazole 20 mg qdmonitor for sx control [id number] APPLE Bernardo AT [address] [address] 09/08/2018 14:19:49 09/13/2018 14:40:04 Injury of right knee 8289239472 6658338 S89.91XD I explained to pt that the [...] senna 8.6 mg qhs Acute gastroenteritis 69 865601 K52.9 imodium 2 mg 1 prn loose stool max 8/dayzofra n 4 mg 1 q 6 hrs prnencoura ged clear liquids till no vomiting or diarrhea [id number] KASHIF SOARESLEY AT [address] [address] 09/10/2018 09:51:50 09/13/2018 15:22:55 Injury of right knee 2202322438 2735172 S89.91XD venous doppler and xray of right [...] mg bid and senna 8.6 mg qhs [id number] Betty Susana VANESSA AT [address] [address] 09/12/2018 13:21:59 09/20/2018 12:43:19 Pain in right knee 5369356545 99750 M25.561 knee pain s/p fallno fracturef/ u outpatient Unsteady gait 684715068 R26.81 f/u outpatient Chronic at rial fibrillation 404814459 I48.2 amiodarone 200 mg qdcoreg 12.5 mg bidf/u outpatient Congestive heart failure 66050984 I50.22 lasix 40 mg qdf.u outpatient Essential hypertension 65787266 I10 lasix 40 mg qdlisinopr il 20 mg qdcoreg 12.5 mg bidf/u outpatient Gastroesop hageal reflux disease without esophagitis 066413346 K21.9 omeprazole 20 mg qdf/u outpatient Injury of right knee 137 0140545 0992498 S89.91XD venous doppler and xray of right [...] bid and senna 8.6 mg qhsf/u outpatient [id number] Jennifer Banegas NP [address] [address] 12/07/2024 08:07:47 12/20/2024 08:17:50 Unsteady gait 141995879 R26.81 hx of knee pain in past with recent fallsPT OT eval and treatassis ting devices prnmonitor for fall risk Congestive heart failure 46118989 I50.22 lasix 20 mg bimonitor weights and respirator y statustitr ate prnmonitor renal function Essential hypertension 75111693 I10 lasix 20 mg bidcoreg 6.25mg bidmonitor bp Gastroesop hageal reflux disease without esophagitis 711366101 K21.9 no on medsmonito r for sx control Moderate c hronic obstructive pulmonary disease 147362031 J44.9 hx ofnot on meds for thismonito r resp status Type 2 shekhar betes mellitus without complication 303930368 E11.9 not on meds for thismonito r prn Mixed hyperlipidemia 267 711832 E78.2 lipitor 10 mg qhs Mixed anxi ety and depressive disorder 597273291 F41.8 bupropion 100 mg po tidduloxet ine 40 mg po qdrisperid one 1 mg po qhsmonitor Longstandi ng persistent atrial fibrillation 561987051 I48.11 07914096 on warfarin with suprathera peutic inr at 7.4 in hospital(w as on m w 4mg, t, , wedd, sat, sun 2mg) consider restarting when level <3.0coreg 6/25 mg biddigoxin 250 mcg wed and tor and adjust coumadinmo nitor for rate controldig level prn (last in er <0.4)monit or inr daily as labs is able and adjust, monitor for restart Pain 38076287 R52 691006 tyl 1300 mg po bid prn pain(home dose)gabap entin 100 mg , , wed, 300mg po q fridaymoni tor Finding of hand region 240347291 R25.1 17580023 hx of long standing tremor per [place] risperdol helps with his tremormoni tor for withdrawal symptoms or need to start/adju st meds Morbid obesity 143023002 E66.01 pot pusher to eval and treatmonit or weights weekly Forgetful 15264710 R68.8 9 827264 seems to be mildly forgetful at times or diff rememberin g events and sequence, does do well on bims todaybims monit or for need to invokework up in hosp nonacutemo nitor Internatio nal normalized ratio above reference range 860081881 R79.1 4209838 on warfarin with suprathera peutic inr at 7.4 in hospital(w as on m w 4mg, t, th, frid, sat, sun 2mg) consider restarting when level <3.0monito r inr daily as labs is able and adjust, monitor for restart Recurrent falls 87816607 2 R29.6 0143632 states recurrent falls and balance issuesmoni tor orthostati c bps qd x 3 dayssuppor tive carept/ot treat and evalmonito r [id number] Jennifer Banegas NP [address] [address] 12/15/2024 10:20:49 12/20/2024 09:55:47 Unsteady gait 558518853 R26.81 hx of knee pain in past with recent fallsPT OT eval and treatassis ting devices prnmonitor for fall riskpt ot to eval if cane is needed, pt lost cane per report today Longstandi ng persistent atrial fibrillation 500509895 I48.11 60830698 on warfarin with suprathera peutic inr at 7.4 in hospital(w as on m w 4mg, t, th, frid, sat, sun 2mg) consider restarting when level <3.0coreg 6/25 mg biddigoxin 250 mcg wed and wednesdaymoni tor and adjust coumadinmo nitor for rate controldig level prn (last in er <0.4)-cbc bmp dig pt/inr ordered for wednesday Internatio nal normalized ratio above reference range 280107584 R79.1 5210583 on warfarin with suprathera peutic inr at 7.4 in hospital(w as on m w 4mg, , , , sat, sun 2mg)restar marialuisa on 12/12 for inr of 1.8 at 2mg po qdINR pending 12/15 and adjust as neededmoni tor inr daily as labs is able and adjust Congestive heart failure 11795839 I50.22 lasix 20 mg bimonitor weights and respirator y statustitr ate prnmonitor renal function Essential hypertension 35628877 I10 bp stablecont lasix 20 mg bidcoreg 6.25mg bidmonitor bp Mixed anxi ety and depressive disorder 605787311 F41.8 bupropion 100 mg po tidduloxet ine 40 mg po qdrisperid one 1 mg po qhsmonitor Pain 87823653 R52 412830 tyl 1300 mg po bid prn pain(home dose)gabap entin 100 mg , , wed, 300mg po q wednesdaymoni tor Finding of hand region 506728494 R25.1 79468770 hx of long standing tremor per pthe states risperdol helps with his tremormoni tor for withdrawal symptoms or need to start/adju st meds Morbid obesity 679536198 E66.01 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 to eval and treatmonit or weights weekly Forgetful 92402822 R68.8 9 155428 seems to be mildly forgetful at times or diff rememberin g events and sequence, does do well on bims todaybims monit or for need to invokework up in hosp nonacutemo nitor Recurrent falls 77568539 2 R29.6 9971823 states recurrent falls and balance issuesmoni tor orthostati c bps qd x 3 dayssuppor tive carept/ot treat and evalmonito r Sore throat 501430634 J0 2.9 25792 12/14 reports sore throat today-salt water gargles prn-cepaco l lozenges prn- covid swabmonito r vitals Diarrhea 59573110 R19.7 38615207 monitor loose stools, started overnight- cdiff, ova and parasites- immodium prn-zofran prn-cbc bmp dig pt/inr ordered for wednesday [id number] Joo Oswald MD [facility] [address] [place] [address] 12/16/2024 10:33:07 12/20/2024 10:05:49 Acute hypokalemia 01476352 E87.6 9797 required supplement priorrepea t lytes and monitor need for KClon lasix for chfrepeat labs ordered for iscuss ed with nursing Asthenia 10266964 R53.1 96976 PT OT eval and treatmonit or fall risk and need for increased support in community Impaired cognition 74090 6002 R41.89 576306 prior confusionn ow appears returned to baselinemo nitor level of insight Unsteady gait 734124831 R26.81 recent recurrent fallsthera py to eval and follow Congestive heart failure 20690584 I50.22 lasix 20 mg bidmonitor respirator y and fluid statusrece nt hypokalemi a Essential hypertension 93889865 I10 lasix 20 mg bidcoreg 6.25mg bidmonitor bp and need to titrate Mixed anxi ety and depressive disorder 478130236 F41.8 continue out patient medsrequir ed zyprexa Morbid obesity 288894442 E66.01 dietary eval Paroxysmal atrial fibrillation 766418328 I48.0 08689 suprathera putic in hospitalco reg 6.25 mg biddig 250 mcg m/w/frepea t and monitor INR to titrate dose of coumadindi scussed with nursing to request result of INR apparently drawn yesterdayI NR=1.5 on 12/15coumad in not on MARdiscuss ed with nursing to restart 2 mg qdrecheck INR wednesday [id number] Jennifer Banegas NP [facility] [address] [place] [address] 12/18/2024 12:05:43 12/20/2024 10:45:44 Congestive heart failure 64824490 I50.22 lasix 20 mg bidmonitor respirator y and fluid statusrece nt hypokalemi a Acute hypokalemia 512576 03 E87.6 9797 required supplement priorrepea t lytes and monitor need for KClon lasix for chfrepeat labs 12/18, stable k 3.6discuss ed with nursing Asthenia 60661919 R53.1 42334 seems to be improvingP T OT eval and treatmonit or fall risk and need for increased support in communityi mproving with stability and walking 175 feet with AD. Impaired cognition 16070 6002 R41.89 848362 prior confusion , now appears returned to baseline BIMS but appears to be vague about some detailsmon itor level of insight Unsteady gait 277677149 R26.81 recent recurrent fallsthera py to eval and follow Paroxysmal atrial fibrillation 178548806 I48.0 80905 suprathera putic in hospitalco reg 6.25 mg biddig 250 mcg m/w/fmonit or INR to titrate dose of coumadin on 12/21INR=1.3 on 12/18 ? missed a few doses of coumadin, discussed with nursing to restart 2 mg qd until next INR Essential hypertension 46490350 I10 lasix 20 mg bidcoreg 6.25mg bidmonitor bp and need to titrate Mixed anxi ety and depressive disorder 111570991 F41.8 continue out patient medsrequir ed [facility] Morbid obesity 492935485 E66.01 dietary eval Sore throat 869608732 J0 2.9 74866 resolved-s alt water gargles prn-cepaco l lozenges prn- covid swab negmonitor vitals Diarrhea 05591549 R19.7 29555769 resolvedmo nitor loose stools-cdi ff, ova and parasites- immodium prn-zofran prn Pain 32071628 R52 352134 tyl 1300 mg po bid prn pain(home dose)gabap entin 100 mg m, w, sat, 300mg po q wednesdaymoni tor Finding of hand region 831497456 R25.1 49590897 hx of long standing tremor per pthe states risperdol helps with his tremormoni tor for withdrawal symptoms or need to start/adju st meds [id number] DAMARIS BOCANEGRA NP [facility] [address] [place] [address] 12/26/2024 13:13:54 12/27/2024 16:54:27 Asthenia 71629689 R53.1 38672 Generally deconditio nedContinu e PT OT - making gainsGoal is to return home.Monit or need for increased support in community Impaired cognition 99833 6002 R41.89 652518 Appropriat e with conversati on today.Prio r confusion but most recent BIMS 15/15Monit or cognition, level of insight Congestive heart failure 64386200 I50.22 Continue lasix 20 mg bidMonitor VS, weights, labs, CP status for s/s decompensa tion. Acute hypokalemia 975263 03 E87.6 9797 Required supplement priorNot on KCL presentlyR emains on lasixCheck BMP Wednesday along with PT INR, indu. due to recent diarrhea Paroxysmal atrial fibrillation 502926142 I48.0 00052 INR suprathera putic in hospital, now subtherapu tic, 1.2. Question of some missed doses.Cont inue coumadin - increase to 4 mg T, , , and continue 2 mg all other days.INR WednesdayCont inue:coreg 6.25 mg biddig 250 mcg m/w/ Essential hypertension 13638279 I10 VSSContinu e:lasix 20 mg bidcoreg 6.25mg bidmonitor bp and need to titrate Mixed anxi ety and depressive disorder 916487648 F41.8 continue out patient medsrequir ed zyprexa in EDnone at rehab needed so far, no behaviors. Morbid obesity 351027473 E66.01 dietary evalHas lost some weight if readings accurate. Pain 91185884 R52 736741 Currently controlled .Continue: tyl 1300 mg po bid prn pain(home dose)gabap entin 100 mg m, w, wed, 300mg po q wednesdaymoni tor Finding of hand region 622251812 R25.1 43161818 hx of long standing tremor per pthe states risperdol helps with his tremormoni tor for withdrawal symptoms or need to start/adju st meds Acute diarrhea 829965527 R19.7 12250 Apparently an issue in the past.Recur ring today, but pt. blames the food served at lunch.Rest art PRN imodium 2 mg qid prn x 7dMaintain fluidsMoni tor VS, GI sx. closely. [id number] Jennifer Banegas, BRITTNEY [facility] [address] [place] [address] 01/01/2025 10:32:12 01/10/2025 17:09:24 Acute diarrhea 385277257 R19.7 69219 Apparently an issue in the past. resolved over the weekendPRN imodium 2 mg qid prn x 7dMaintain fluidsMoni tor VS, GI sx. closely.la bs stable Asthenia 07170452 R53.1 96317 Generally deconditio nedContinu e PT OT - making gains and working with therapyGomuriel l is to return home.Monit or need for increased support in community Impaired cognition 75443 6002 R41.89 393805 Appropriat e with conversati on today.Prio r confusion but most recent BIMS Monit or cognition, level of insight Congestive heart failure 76315762 I50.22 appears euvolemic weight stableCont inuelasix 20 mg bidMonitor VS, weights, labs, CP status for s/s decompensa tion. Acute hypokalemia 398138 03 E87.6 9797 Required supplement prior, k stable as aboveNot on KCL presentlyR emains on lasixseems stable, will check bmp weekly Paroxysmal atrial fibrillation 530951786 I48.0 43564 INR suprathera putic in hospital, now subtherapu tic, 1.2. Question of some missed doses last weekContin ue coumadin as per home regimen 4 mg T, , , and continue 2 mg all other days.INR ontinue:co reg 6.25 mg biddig 250 mcg m/w/ Essential hypertension 67659242 I10 VSSContinu e:lasix 20 mg bidcoreg 6.25mg bidmonitor bp and need to titrate Mixed anxi ety and depressive disorder 144034197 F41.8 hsa been stable herecontin ue out patient medsrequir ed zyprexa in ED prior to admitnone at rehab needed so far, no behaviors. Morbid obesity 502114868 E66.01 dietary evalHas lost some weight if readings accurate. Pain 72421903 R52 833688 Currently controlled .Continue: tyl 1300 mg po bid prn pain(home dose)gabap entin 100 mg m, w, wed, 300mg po q wednesdaymoni tor Finding of hand region 505154039 R25.1 05449305 hx of long standing tremor per pthe states risperdol helps with his tremormoni tor for withdrawal symptoms or need to start/adju st meds Insomnia 566891661 G47.0 0 23655413 difficulty sleeping here lately01/01 start melatonin 5mg po qhsmonitor e [id number] Jennifer Banegas, BRITTNEY [facility] [address] [place] [address] 01/10/2025 09:20:38 01/11/2025 10:46:04 Insomnia 930228735 G47.00 88830372 cont melatonin 5mg po qhs, started last week with effectmoni tor Asthenia 79544703 R53.1 80930 making gains and working with therapy now walking without assistive devicesGoa l is to return home.Monit or need for increased support in community Paroxysmal atrial fibrillation 121747490 I48.0 01081 INR suprathera putic in hospital, now subtherapu tic, 1.5.admini stration summary shows he is getting doses01/10 due to low inr 1.5 will give 6 mg po x 2 days total and then continue coumadin as per home regimen 4 mg T, , , and continue 2 mg all other daysINR wednesdayCont inue:coreg 6.25 mg biddig 250 mcg m/w/f Impaired cognition 78762 6002 R41.89 039553 Appropriat e with conversati on today.Prio r confusion resolving, but most recent BIMS Monit or cognition, level of insight Congestive heart failure 96781247 I50.22 appears euvolemic weight stableCont inuelasix 20 mg bidMonitor VS, weights, labs, CP status for s/s decompensa tion. Acute hypokalemia 857518 03 E87.6 9797 Required supplement prior, k stable as aboveNot on KCL presentlyR emains on lasixseems stable, will check bmp weekly Essential hypertension 38051759 I10 bp stableCont inue:lasix 20 mg bidcoreg 6.25mg bidmonitor bp and need to titrate Mixed anxi ety and depressive disorder 553254976 F41.8 hsa been stable herecontin ue out patient medsrequir ed zyprexa in ED prior to admitnone at rehab needed so far, no behaviors. Morbid obesity 535041351 E66.01 dietary evalHas lost some weight if readings accurate. Pain 59242312 R52 286551 Currently controlled .Continue: tyl 1300 mg po bid prn pain(home dose)gabap entin 100 mg , , wed, 300mg po q wednesdaymoni tor Finding of hand region 326276358 R25.1 14859441 hx of long standing tremor per pthe states risperdol helps with his tremormoni tor for withdrawal symptoms or need to start/adju st med [id number] DAMARIS BOCANEGRA NP [facility] [address] [place] [address] 01/11/2025 09:44:15 01/15/2025 13:43:09 Paroxysmal atrial fibrillation 066070036 I48.0 94662 INR suprathera putic in hospital, now subtherapu tic, 1.5.Given coumadin 6 mg 01/10 and 01/11, INR check 01/12.On d/c, recommend Coumadin 4 mg 4xwk and 2 mg q MWF.Check INR x 1 next week (12/17 or 12/18) with results to PCP for further dosing.Con tinue coreg 6.25 mg bid and dig 250 mcg q // for rate control. Insomnia 463699425 G47.0 0 50487804 cont melatonin 5mg po qhs, started last week with effectmoni tor need as outpt.susp ect will sleep better once he is back on CPAP. Asthenia 79169805 R53.1 68117 making gains and working with therapy - meeting goals for d/c home with support of family and services on 01/12.Monit or need for increased support in community Impaired cognition 80979 6002 R41.89 672628 Appropriat e with conversati on today.Prio r confusion resolving, most recent BIMS Monit or cognition, level of insight as outpt. Congestive heart failure 62353012 I50.22 appears euvolemic weight stableCont inuelasix 20 mg bidMonitor VS, weights, labs, CP status for s/s decompensa tion as outpt. Acute hypokalemia 351215 03 E87.6 9797 Required supplement prior, k now stableNot on KCL presentlyR emains on lasixFollo w as outpt. Essential hypertension 56423940 I10 bp stableCont inue:lasix 20 mg bidcoreg 6.25mg bidmonitor bp and need to titrate as outpt. Mixed anxi ety and depressive disorder 589978380 F41.8 hsa been stable herecontin ue out patient medsrequir ed zyprexa in ED prior to admitnone at rehab needed, no behaviors. Morbid obesity 422890286 E66.01 dietary evalHas lost some weight if readings accurate. Pain 01284773 R52 679374 Currently controlled .Continue: tyl 1300 mg po bid prn pain(home dose)gabap entin 100 mg m, w, sat, 300mg po q wednesdaymoni tor Finding of hand region 299177059 R25.1 94260157 hx of long standing tremor per pthe states risperdal helps with his tremor, continue HS dose Acute diarrhea 184145293 R19.7 24589 Off and on, pt. thinks may be diet related.Ut ilized PRN imodium while hereMainta in fluids as outpt.Shena tor VS, GI sx. Mixed hyperlipidemia 267 352883 E78.2 Continue atorvastat in Moderate c hronic obstructive pulmonary disease 526821015 J44.9 Stable while here Health Concerns Section Related Observation LastModified by Organization Detai ls LastModified Time None Recorded Concern Status LastModified by Organization Details LastModified Time None Recorded Advance Directives Directive N: Payers Insurance Date Sequence Insurance Name Policy Number Policy Kaminski Covered Member ID Kaminski Member ID Guarantor Name 12/07/2024 1 [facility] (MEDICARE REPLACEMENT/A DVANTAGE - PPO) [id number] Misbah Iverson [id number] Misbah Iverson 12/07/2024 1 [place] [employer] Misbah Iverson [id number] Misbah Iverson 12/18/2024 2 [place] Misbah Iverson [id number] Misbah Iverson 12/20/2024 1 [place] [employer] Misbah Iverson [id number] Misbah Iverson Notes Date Note Type Note [...] potassium for k of 2.5. Since at [facility]:Misbah reports he is working with rehab. [...] apartment by Wednesday or this week. 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 PMH: GERD, HLD, COPD, DM, CHF, AFIB on AC, HTN, Morbid obesity, cardiomyopathy, anxiety, depression He is a 74 yo male admitted to [facility] for continued care and rehab after presenting [...] home. MOLST: DNI, no dialysis, no art nutritionBINJ DAMARIS BOCANEGRA, BRITTNEY [address] [facility] [facility], [address], [place], [address], [facility] [employer] 12/27/2024 12:51:01 01/01/2025 text/html Misbah is seen today for an acute rounding visit. PMH: GERD, HLD, COPD, DM, CHF, AFIB on AC, HTN, Morbid obesity, cardiomyopathy, anxiety, depression Pt is seen for complaint of insomnia due to noise at night. He requests something mild. Agreeable to 5 mg po melatonin. of note; He is a 74 yo male admitted to [facility] for continued care and rehab after presenting [...] no art nutritionBIMS Jennifer Banegas, BRITTNEY [address] [facility] [facility], [address], [place], [address], [facility] [employer] 01/01/2025 11:03:24 01/10/2025 text/html Pt is seen today for an acute rounding visit. PMH: GERD, HLD, COPD, DM, CHF, AFIB on AC, HTN, Morbid obesity, cardiomyopathy, anxiety, depression He is a 74 yo male admitted to [facility] for continued care and rehab after presenting [...] no art nutritionBIMS Jennifer Banegas, BRITTNEY [address] [facility] [facility], [address], [place], [address], [facility] [employer] 01/10/2025 18:56:15 01/11/2025 text/html Misbah is seen today for discharge.He will be leaving 01/12 with plans to stay with his sister for a few days before going home. He is a 74 yo male admitted to [facility] for continued care and rehab after presenting [...] obesity, cardiomyopathy, anxiety, depression DAMARIS BOCANEGRA NP [address] [place] [address], [address], [place], [address], [facility] 01/11/2025 10:22:51
--- OUTSIDE RECORDS SUMMARY | 2025-07-09 03:15 | XMS_ITS ---
Author Name Montero BRITTNEYHomer Address [address] [place] [address] Phone [phone] [facility] Care Team Providers Care Telephone Interceptor Operator Name Role Phone Homer Montero Unavailable [phone] 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 Loomis01/25/24: Denies any dyspnea with exertion. [...] joint pain increased [facility]. [facility] with [facility] as needed for any acute or [...] (do not use for phone, instead use 79421-80) [facility] Unspecified atrial fibrillationOther thrombophiliaChronic obstructive pulmonary [...] (do not use for phone, instead use 81536-89) [facility] New patient,40-59min; chronic exacerbation, 2 stable chronic or 1 acute illness add add modifier 95 for video (do not use for phone, instead use 92557-40) [facility] New patient,40-59min; chronic exacerbation, 2 stable chronic or 1 acute illness add add modifier 95 for video (do not use for phone, instead use 74964-50) [facility] New patient,40-59min; chronic exacerbation, 2 stable chronic or 1 acute illness add add modifier 95 for video (do not use for phone, instead use 79493-59) [facility] New patient,40-59min; chronic exacerbation, 2 stable chronic or 1 acute illness add add modifier 95 for video (do not use for phone, instead use 30522-46) [facility] New patient,40-59min; chronic exacerbation, 2 stable chronic or 1 acute illness add add modifier 95 for video (do not use for phone, instead use 55566-86) [facility] 07[place] New patient,40-59min; chronic exacerbation, 2 stable chronic or 1 acute illness add add modifier 95 for video (do not use for phone, instead use 49547-32) [facility] 07[place]2022 New patient,40-59min; chronic exacerbation, 2 stable chronic or 1 acute illness add add modifier 95 for video (do not use for phone, instead use 79350-50) [facility] 07[place]2022 No Data Available [facility] [place] 07/[place]/2022 History of fallingMyalgia, o ther site No Data Available [facility] [place] 08/18/2022 Unspecified atrial fibrillationOther thrombophiliaChronic obstructive pulmonary disease, unspecifiedUnspecified disorder of circulatory systemChronic pulmonary embolismHeart failure, unspecifiedCardiomyopathy, unspecifiedMajor depressive disorder, recurrent, in full remissionHyperlipidemia, unspecifiedObstructive sleep apnea (adult) (pediatric)History of fallingMyalgia, other siteMorbid (severe) obesity due to excess caloriesInsomnia, unspecifiedSedative, hypnotic or anxiolytic dependence, uncomplicatedPersonal history of nicotine dependence No Data Available [facility]2022 Other thrombophiliaUnspecifi ed atrial fibrillationChronic obstructive pulmonary disease, unspecifiedUnspecified disorder of circulatory systemChronic pulmonary embolismHeart failure, unspecifiedCardiomyopathy, unspecifiedMajor depressive disorder, recurrent, in full remissionCoagulation defect, unspecifiedHyperlipidemia, unspecifiedObstructive sleep apnea (adult) (pediatric)History of fallingMyalgia, other siteMorbid (severe) obesity due to excess caloriesBody mass index (BMI) 45.0-49.9, adultInsomnia, unspecifiedSedative, hypnotic or anxiolytic dependence, uncomplicated No Data Available [facility]2022 No Data Available [facility]20[place] No Data Available [facility] [place]2022 No Data Available [facility]2022 No Data Available [facility] [place] 09[place]2023 Dizziness and giddinessBody mass index (BMI) 40.0-44.9, adult No Data Available [facility] 09[place]11/2023 No Data Available [facility] 09/[place]2023 No Data Available [facility] [place]2023 No Data Available [facility] [place] 09[place]2023 No Data Available [facility] [place] 01/25/2024 Other thrombophiliaUnspecifi ed atrial fibrillationOther problems related to medical facilities and other health careChronic obstructive pulmonary disease, unspecifiedChronic pulmonary embolismUnspecified disorder of circulatory systemCardiomyopathy, unspecifiedHeart failure, unspecifiedMajor depressive disorder, recurrent, in full remissionHyperlipidemia, unspecifiedObstructive sleep apnea (adult) (pediatric)History of fallingMyalgia, other siteMorbid (severe) obesity due to excess caloriesBody mass index (BMI) 40.0-44.9, adultInsomnia, unspecified No Data Available [facility] 01/[place]/2024 No Data Available [facility] [place] 01/[place]/2024 No Data Available [facility] [place] 01/[place]/2024 No Data Available [facility] [place] 01/[place]/2024 No Data Available [facility] [place] 01/[place]/2024 No Data Available [facility] [place] 01/[place]/2024 No Data Available [facility] [place] 01/[place]/2024 No Data Available [facility] 01/25/2024 Vital Signs Date of [...] tive Time Current Smoking Status Former smoker 2025-06-19 2 Sex Male History of Procedures Procedures Service Procedure code Service date Servicing provider Phone# New patient,40-59min; chronic exacerbation, 2 stable chronic or 1 acute illness add add modifier 95 for video (do not use for phone, instead use 19443-93) 33757 2022-07-27 No Data Available No Data Availa [...] le No Data Available No Data Available [id number] 2024-01-25 No Data Available No Data Available [...] states he can likely get someone from [facility] warfarin- follows closely with cardio and [...] to discuss with PCP for medications for [facility] usehas been on lorazepam for 5 years [...] states he can likely get someone from [facility] warfarin- follows closely with cardio and [...] to discuss with PCP for 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 Follow-up with [facility] as needed for any acute or [...] PCP for ongoing monitoring and management Sees electroslag welding machine operator Dr. 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 Yes, preferred proxy but not named KRISTINEf so, Who? Sister Lorne you have a written Advance Directive? Has Advance DirectiveOther details of discussion: Patient expressed her desire to be DNI code status, he is planning to discuss with PCPToday's plan: Advised patient to discuss wishes with [id number] : AD or surrogate was documented in the medical record.
--- OUTSIDE RECORDS SUMMARY | 2025-07-09 03:15 | XMS_ITS | Patient Health Record ---
Author Organization [facility] Address [address] [place] [address] Care Team Providers Care Steamer Gum Candy Name Role Phone Wei MARTINEZ, [facility] Primary Care Provider Momo Leon [phone] Allergies Allergen (clinical drug ingredient) Drug/Non Drug [...] Start Date Coverage End Date MEDICARE OF [place] [address] [place] [address] [id number] WEI PULLIAM Self - patient is the insured [employer] [address] [address] [place] [address] [id number] WEI PULLIAM Self - patient is the insured
--- OUTSIDE RECORDS SUMMARY | 2025-07-09 03:15 | XMS_ITS | Clinical Summary ---
Author Organization [facility] Address [address] [place] [address] Phone Care Team Providers Care Material Handling Supervisor Name Role Phone Jaylon Carvajal MD Primary Care Provider [phone] Social History Tobacco Use Types Packs/Day Years [...] topic Medical Devices Not on file Insurance [facility] MEDIC[facility] REPLACEMENT [facility] MEDICARE REPLACEMENT [facility] MEDICARE REPLACEMENT [facility] MEDIC[facility] REPLACEMENT Care Teams Material Handling Supervisor Relationship Specialty Start Date End Date Jaylon Carvajal MD [facility] [place] [address] PCP - General Internal Medicine 09/10/18 Additional Source Comments The information contained in this document represents components of the legal health record. It is not the complete legal health record.[facility]
--- OUTSIDE RECORDS SUMMARY | 2025-07-09 03:15 | XMS_ITS | Encounter Summary ---
Author Organization [facility] Address [address] [place] [address] Phone Care Team Providers Care Rotary Rock Drilling Machine Operator Name Role Phone Jaylon Carvajal MD Primary Care Provider [phone] Encounter Details Date Type Department Care Team (Late st Contact Info) Description 09/13/2018 Transcribe Orders [facility] Specimen Processing [address] [place], [place] [id number] Joo Oswald MD [address] [facility], [address] [place] [address] [email or web address] Atrial fibrillation, unspecified type (Primary Dx) Social [...] EST) PT 30.5(H) 10.2 - 12.9 sec [facility] INR 2.7(H) 0.9 - 1.1 [facility] Comment:Therapeutic range fo r oral Vitamin K antagonists: 2.0-3.5 Blood 09/13/2018 5:50 AM EST 09/13/2018 7:43 AM EST us Joo Oswald MD LAB BLOOD BKR ORDERABLES Final R esult [facility] [address] [place] [address] documented in this encounter Visit Diagnoses Diagnosis Atrial fibrillation, unspecified type- Primary documented in this encounter Care Teams Rotary Rock Drilling Machine Operator Relationship Specialty Start Date End Date Jaylon Carvajal MD [address] [place] [address] PCP - General Internal Medicine 09/10/18 documented as of this encounter Additional Source Comments The information contained in this document represents components of the legal health record. It is not the complete legal health record.[facility]
--- NOTE | 2025-07-09 07:23 | PC.NURSE ---
Pt is alert and oriented x 3 but states can be forgetful. Denies pain or any complaints at this time. Only reports here d/t CPAP machine dying and inability to sleep. Assisted into hospital bed for comfort. Stood and transferred without difficulty. Ate breakfast. Awaits CM to asses needs. Afib on tele, rate 90-100s. Takes Coumadin, last INR last Wednesday, Qweekly. Skin pink warm and dry. Speech is clear.
--- NOTE | 2025-07-09 08:27 | PC.NURSE ---
Pharmacy to work on med rec when able
--- NOTE | 2025-07-09 08:53 | MHC.CM.ED ---
Received case management consult from Dr Barrios. Patient has a cpap that broke and came to the ER due to shortness of breath. Met with patient in regards to discharge planning. Patient is active with [facility]. Patient verifies his Cpap broke on . He tried calling the local [facility] and they couldn't find him . Patient has a [employer] Air Sense 10. He believes he has had it for [address] Loomis is his pulmonoligist. Spoke with Skip of [facility]. Patient was active with [facility]. This company was bought out by [facility]. Skip is working with [facility] to get patient a new cpap machine. Continue to monitor for d/c needs.
--- NOTE | 2025-07-09 09:43 | PHA.MEDREC ---
Addendum entered by Jonas Khanna 07/09/25 10:35: Received list from [facility] and verified meds pt actively taking from them; pt no longer taking Risperidone, Gababentin or Nupropion, stating his Dr stopped those in the last few months . Original Note: Pharmacy Consult ? Medication Reconciliation Pharmacy has completed the medication reconciliation. Spoke with pt and he confirmed his medications. Pt confirmed he is taking Digoxin 250mcg tabs MoWeFr; pt last took it Fr 07/06, he is taking Warfarin 4mg tabs in the morning and not @1800, Warfin dose as of 07/02-07/09 Falk: 4mg Mo: 2mg Tu: 4mg We: 6mg Th: 4mg Fr: 2mg Sa: 4mg Falk: 4mg Mo: 2mg and last took it yesterday morning @0900 (along with other medications); pt getting retested 07/10, pt taking a C-Pap machine at night and pt sister (Caroline [phone]) suffering from Dementia and is not able to help with any questions for pt at this time per pt.
--- NOTE | 2025-07-09 11:38 | MHC.CM.ED ---
Per [facility], Cpap will be delivered tomorrow. Patient aware and will d/c home. [facility] arranged for 1245pm. Patient, Cris LEE and April PORTER aware. Continue to monitor for d/c needs.
== END 2025-07-09 12:11 | disposition home or self-care (01) ==
PROVIDERS: Emergency Provider Student in an Organized Health Care Education/Training Program; PCP Internal Medicine
DX: G47.00 Insomnia, unspecified (principal); R06.02 Shortness of breath; I25.10 Atherosclerotic heart disease of native coronary artery without angina pectoris; I48.91 Unspecified atrial fibrillation; Z79.01 Long term (current) use of anticoagulants; Z79.899 Other long term (current) drug therapy
CPT/HCPCS: 99283; 99284